=== PATIENT | male | born 1940 | race Asian ===

== ENCOUNTER → 2017-03-05 | Outpatient (CLI) | payer BC ==
[~2017-03-05] MED LIST: ASPI81TA28 PO; CALC-5 PO; CEPH500C2 PO; DILT120C67 PO; LEVO25TA5 PO; LEVOTHYROXINE PO; POLY1POW80 PO; SULF800T23 PO; VENL-273 PO; VERA1TAB53 PO
--- NOTE | 2017-03-05 14:53 | DIAGNOSTIC IMAGING REPORT ---
RIGHT TIBIA/FIBULA 2 VIEWS ROUTINE CLINICAL HISTORY: Bone injury. Tender nodule along the mid shaft of the right tibia. COMPARISON: None FINDINGS: There is no acute fracture of the right tibia or fibula. No osseous lesion is identified. Lateral view demonstrates possible soft tissue swelling overlying the proximal to mid shaft of the right tibia. IMPRESSION: 1. No osseous abnormality of the right tibia or fibula. 2. Possible nonspecific soft tissue swelling overlying the anterior aspect of the proximal to mid shaft of the right tibia shown on lateral projection. Electronically signed by: Jaden Acevedo M.D. 03/05/2017 2:52 PM Dictated Date/Time: 03/05/2017 2:50 PM
== END | disposition home or self-care (01) ==
LOC: C.RAD 14:21
PROVIDERS: ATTEND Nurse Practitioner Family
DX: T14.90 Injury, unspecified (principal); X58.XXXA Exposure to other specified factors, initial encounter

== ENCOUNTER 2017-05-05 21:13 | Emergency (ER) | payer BC ==
[~2017-05-05] VITALS: Ht 167.6 cm; Wt 68.2 kg
[~2017-05-05 21:13] MED LIST changes: -ASPI81TA28 PO; -CEPH500C2 PO; -LEVO25TA5 PO; -LEVOTHYROXINE PO; -SULF800T23 PO; -VERA1TAB53 PO
[2017-05-05 21:17] VITALS: TEMP 36.7; Ht 167.6 cm; Wt 68.2 kg
[2017-05-05] MEDS ORDERED: DIPHTHERIA/TETANUS/PERTUSSIS 0.5 ML SYR/VIAL IM. ONE (21:45)
[2017-05-05] MEDS ORDERED: XYLOCAINE 1%/SOD BICARB 20 ML VIAL INFIL ONE (21:45)
[2017-05-05 22:24] VITALS: BP 125/68; PULSE 72; O2SAT 98
--- NOTE | 2017-05-05 22:45 | EMERGENCY ROOM VISIT NOTE ---
ED Visit Note First contact with patient: 21:37 CHIEF COMPLAINT: Finger laceration HISTORY OF PRESENT ILLNESS: This 76-year-old male patient presents to the emergency department after cutting the left first finger on a kitchen knife approximately one hour ago. The bleeding has stopped. Denies weakness or numbness of the finger. The patient has full range of motion of the fingers. The patient rates the pain as dull and 5/10. The patient denies any other injuries. The patient's tetanus shot is not up to date. REVIEW OF SYSTEMS: A 6 system review of systems was completed with positives and pertinent negatives listed in the HPI. ALLERGIES: No known allergies MEDICATIONS: See EMR PMH: See EMR SOCIAL HISTORY: Lives with family PHYSICAL EXAM: Vital Signs: Reviewed Nurse's notes, vital signs stable. GENERAL : French male, in no acute distress, well developed, well nourished. SKIN: There is a 3.0 cm long laceration on the medial aspect of the left first finger. The edges gape apart with traction. There is no foreign material in the wound and it looks clean. There is no bleeding. No deep structures such as tendons, bones, or significant blood vessels are seen in the base of the wound. Extension and flexion of the finger is full and strong. Full range of motion of the wrist and other fingers. Capillary refill less than 2 seconds. Normal sensation to light and sharp touch. EMERGENCY DEPARTMENT COURSE: I examined the patient. Verbal consent was obtained to perform the procedure. Using sterile technique the wound was cleansed with Betadine. 6 ml of 1% buffered lidocaine was used to perform a digital block to anesthetize the patient. The area was sterilely draped. Once the patient was anesthetized, the wound was copiously irrigated under pressure with sterile saline. The wound was explored and there were no deep structures injured. The laceration was repaired using 5 simple interrupted 5-0 nylon sutures. The patient tolerated the procedure well. Hemostasis was achieved. The area was cleaned with sterile saline and dressed with bacitracin ointment and bandage. The patient was given a tetanus booster. The patient was discharged home in good condition. Problem List Medical Problems: (1) Benign hypertension Status: Chronic (2) Bladder cancer Status: Resolved (3) Kidney disease Status: Chronic (4) Stomach problems Status: Chronic (5) Urinary problem Status: Chronic Current/Historical Medications Scheduled Calcium-Magnesium W/ Vitamin D (Calcium 500), 1 TAB PO DAILY Diltiazem Hcl Extended Release (Diltiazem Hcl Er), 120 MG PO BID Polyethylene Glycol 3350 (Peg 3350), 17 GM PO DAILY Venlafaxine Hcl (Venlafaxine Hcl Er), 75 MG PO BID Allergies Coded Allergies: No Known Allergies (Unverified , NONE, 10/05/13) Vital Signs Date Time Temp Pulse Resp B/P (MAP) Pulse Ox O2 Delivery O2 Flow Rate FiO2 05/05/17 22:24 72 18 125/68 98 05/05/17 21:17 36.7 74 18 128/73 97 Room Air Medications Administered Medications (Trade) Dose Ordered Sig/Lashell Route Start Time Stop Time Status Last Admin Dose Admin Diphtheria/ Pertussis/Tetanus Vacc (Adacel Inj) 0.5 ml ONCE ONCE IM. 05/05/17 21:45 05/05/17 21:46 DC 05/05/17 21:54 0.5 ML Departure Information Impression Primary Impression: Finger laceration Dispostion Home / Self-Care Condition GOOD Forms HOME CARE DOCUMENTATION FORM, IMPORTANT VISIT INFORMATION Patient Instructions My [facility] Additional Instructions Keep wound clean and dry. Do not allow any crusting or dried blood to accumulate on sutures. If this occurs, use a mild soap/water on a Q-tip to clean the wound. Do not use Peroxide to clean the wound as this can delay healing Use an antibiotic ointment like Bacitracin for 3-4 days, then let wound dry. You may bathe and shower as normal, but DO NOT SOAK the wound. Suture removal in about 7-10 days with your Family Doctor or in the ER. Return sooner for any signs of infection, increasing redness, swelling, or drainage.
== END 2017-05-05 22:25 | disposition home or self-care (01) ==
LOC: C.EDB 21:15 → C.EDD 22:25
DX: S61.211A Laceration without foreign body of left index finger without damage to nail, initial encounter (principal); W26.0XXA Contact with knife, initial encounter; I10 Essential (primary) hypertension; N28.9 Disorder of kidney and ureter, unspecified; Z23 Encounter for immunization

== ENCOUNTER 2017-05-16 16:08 | Emergency (ER) | payer BC ==
[~2017-05-16] VITALS: Ht 167.6 cm; Wt 79.0 kg
[2017-05-16 16:14] VITALS: BP 152/75; PULSE 67; TEMP 37; O2SAT 93; Ht 167.6 cm; Wt 79.0 kg
[2017-05-16] MEDS ORDERED: LEVOTHYROXINE PO (16:44)
[2017-05-16] MEDS ORDERED: CEPH500C2 PO (17:10)
[2017-05-16] MEDS ORDERED: SULF800T23 PO (17:10)
--- NOTE | 2017-05-16 17:11 | EMERGENCY ROOM VISIT NOTE ---
ED Visit Note First contact with patient: 16:27 Staff note: I have reviewed the Patients chart and have discussed this case with my PA. I generally agree with the ED note and findings.
--- NOTE | 2017-05-18 07:19 | EMERGENCY ROOM VISIT NOTE ---
ED Visit Note First contact with patient: 16:27 CHIEF COMPLAINT: Suture removal. HISTORY OF PRESENT ILLNESS: Mr. Cao is a 76-year-old male who ambulates into the ED requesting suture removal for a left thumb laceration he sustained 12 days ago. He reports over the last 5-6 days he has noted redness and swelling of the thumb in the area of his laceration. This has been associated with a throbbing pain. He rates this discomfort 3/10. The pain is nonradiating. The pain worsens with palpation. He has not identified any alleviating factors related to the pain. He has not taken any medications for pain prior to arrival at the hospital. He denies any associated fevers, chills, sweats, other skin eruptions , other skin color changes, chest pain, shortness of breath, abdominal pain, decreased appetite, thumb weakness/numbness/tingling, puslike drainage from the wound. REVIEW OF SYSTEMS: As noted above in History of Present Illness; all body systems were reviewed with the patient and found to be negative unless noted above otherwise. PAST MEDICAL HISTORY: Hypertension, bladder cancer, depression, mild stroke, hypothyroidism. CURRENT MEDICATION: Medications Dose Route/Sig Max Daily Dose Days Date Category [Levothyroxine] 1 Tab PO DAILY 05/16/17 Reported Calcium 500 (Calcium-Magnesium W/ Vitamin D) 1 Tab Tab 1 Tab PO DAILY 10/05/13 Reported Diltiazem Hcl Er (Diltiazem Hcl Extended Release) 120 Mg Cap 120 Mg PO BID 10/05/13 Reported Venlafaxine Hcl Er (Venlafaxine Hcl) 75 Mg Tab 75 Mg PO BID 10/05/13 Reported ALLERGIES TO MEDICATION: Patient denies. SOCIAL HISTORY: Patient is not employed; he feels safe in his home environment; he denies tobacco use and admits to alcohol use. PHYSICAL EXAM: Vital Signs: Date Time Temp Pulse Resp B/P (MAP) Pulse Ox O2 Delivery O2 Flow Rate FiO2 05/16/17 16:14 37.0 67 18 152/75 93 Room Air General: 76 year-old male in no acute distress, nontoxic appearing, afebrile and hemodynamically stable. Neurological: Awake, alert and oriented 3. Answering questions appropriately and following commands. SKIN: Warm, dry and pink. Left Thumb: Sutured laceration over the volar surface of the distal phalanxes. The sutures are intact. There is moderate erythema and edema surrounding the wound. The areas tender to palpation. There is no purulent drainage from the wound. There is no lymphangitis. The area that is erythematous and edematous is warm to palpation but does not appear cellulitic. LEFT HAND: Soft tissue injury as noted above. No gross bony deformity. Full range of motion of flexion and extension of the thumbs interphalangeal joint and first MCP joint. Throughout the thumb the skin was warm and pink and capillary refill is brisk. He was able to distinguish light sensations through all dermatomes. ED COURSE: Patient is assessed as noted above. Patient's medication list was reviewed. Patient's case was reviewed with Dr. Tyler; he independently assessed the patient we agreed on diagnostic approach, treatment, disposition and plan. Patient was educated about today's findings and instructed on his treatment plan ; he verbalizes understanding and agreement with this plan. CLINICAL IMPRESSION: Wound infection. DISPOSITION: Patient discharged home in stable condition. PLAN: Patient was prescribed Keflex and Bactrim DS for 7 days and instructed on their use. Patient was encouraged to continue to clean his wound. Patient was educated on signs of infection. Patient was encouraged return the ED for recheck in 36-48 hours and possible suture removal. Patient was encouraged return to the ED sooner for worsening signs of infection or any new/concerning symptoms.
== END 2017-05-16 17:20 | disposition home or self-care (01) ==
LOC: C.EDB 16:09 → C.EDD 17:20
DX: T81.4XXA Infection following a procedure, initial encounter (principal); X58.XXXA Exposure to other specified factors, initial encounter; I10 Essential (primary) hypertension; F32.9 Major depressive disorder, single episode, unspecified; E03.9 Hypothyroidism, unspecified; Z85.51 Personal history of malignant neoplasm of bladder

== ENCOUNTER 2017-05-22 16:46 | Emergency (ER) | payer BC ==
[~2017-05-22] VITALS: Ht 167.6 cm; Wt 77.2 kg
[~2017-05-22 16:46] MED LIST changes: +CEPH500C2 PO; +LEVOTHYROXINE PO; -POLY1POW80 PO; +SULF800T23 PO
[2017-05-22 16:49] VITALS: BP 161/82; PULSE 58; TEMP 36.7; O2SAT 94; Ht 167.6 cm; Wt 77.2 kg
--- NOTE | 2017-05-22 17:06 | EMERGENCY ROOM VISIT NOTE ---
ED Visit Note First contact with patient: 16:54 CHIEF COMPLAINT: Suture removal This patient returns to the ED today for removal of sutures that were placed 17 days ago. The patient was seen her 4 days ago for suture removal, however, there was redness, swelling, and drainage, so he was started on Keflex and Bactrim, and advised to follow-up in 2 days for removal of sutures. The patient feels like the laceration is healing well. REVIEW OF SYSTEMS: A complete 6 point review of systems was reviewed with the patient with pertinent positives and negatives as per history of present illness. All else were negative. PMH: Anxiety/depression, hypertension MEDICATIONS: Keflex, Bactrim, venlafaxine, diltiazem, calcium-magnesium with vitamin D ALLERGIES: None SOCIAL HISTORY: The patient lives locally with his family. He denies drug, alcohol, tobacco use. PHYSICAL EXAM: Vital Signs: Reviewed Nurse's notes. There is a sutured wound on the medial aspect of the left thumb with mild erythema and swelling. 5 sutures are intact. No pus or drainage from the wound. The wound edges appear to be well-approximated. No evidence of dehiscence. Pt. states redness has improved. EMERGENCY DEPARTMENT COURSE: The sutures were removed without any difficulty and there was no separation of the wound edges. DIFFERENTIAL DIAGNOSIS: Infection, dehiscence, and others. DIAGNOSIS: Healing laceration and suture removal DISCHARGE INSTRUCTIONS AND TREATMENT: Please keep the area covered when you may get it dirty. Leave the wound open to air when possible to assist with healing. If the wound becomes dry or cracked, you should apply antibiotic ointment to it , otherwise, you do not need to apply any ointment. Return to the ED for worsening redness, swelling, pain, fever, drainage, nausea , or vomiting. Follow-up with your PCP this week for further wound care instructions. Continue Keflex and Bactrim as prescribed. Problem List Medical Problems: (1) Benign hypertension Status: Chronic (2) Bladder cancer Status: Resolved (3) Kidney disease Status: Chronic (4) Stomach problems Status: Chronic (5) Urinary problem Status: Chronic Current/Historical Medications Scheduled Calcium-Magnesium W/ Vitamin D (Calcium 500), 1 TAB PO DAILY Cephalexin Monohydrate (Keflex), 500 MG PO QID Diltiazem Hcl Extended Release (Diltiazem Hcl Er), 120 MG PO BID Sulfa/Trimethoprim (Bactrim Ds 800MG/160MG), 1 TAB PO BID Venlafaxine Hcl (Venlafaxine Hcl Er), 75 MG PO BID [Levothyroxine], 1 TAB PO DAILY Allergies Coded Allergies: No Known Allergies (Unverified , NONE, 05/16/17) Vital Signs Date Time Temp Pulse Resp B/P (MAP) Pulse Ox O2 Delivery O2 Flow Rate FiO2 05/22/17 16:49 36.7 58 18 161/82 94 Room Air Departure Information Impression Primary Impression: Encounter for removal of sutures Dispostion Home / Self-Care Condition GOOD Referrals Juanjo Wong M.D. (PCP) Patient Instructions My [facility] Additional Instructions Please keep the area covered when you may get it dirty. Leave the wound open to air when possible to assist with healing. If the wound becomes dry or cracked, you should apply antibiotic ointment to it , otherwise, you do not need to apply any ointment. Return to the ED for worsening redness, swelling, pain, fever, drainage, nausea , or vomiting. Follow-up with your PCP this week for further wound care instructions. Continue Keflex and Bactrim as prescribed.
[2017-05-22] MEDS ORDERED: VERA1TAB53 PO (17:15)
[2017-05-22] MEDS ORDERED: LEVO25TA5 PO (17:17)
[2017-05-22] MEDS ORDERED: ASPI81TA28 PO (17:24)
== END 2017-05-22 17:08 | disposition home or self-care (01) ==
LOC: C.EDB 16:47 → C.EDD 17:08
DX: X58.XXXD Exposure to other specified factors, subsequent encounter (principal); S61.211D Laceration without foreign body of left index finger without damage to nail, subsequent encounter; W26.0XXD Contact with knife, subsequent encounter; I10 Essential (primary) hypertension; F41.8 Other specified anxiety disorders; N18.9 Chronic kidney disease, unspecified

== ENCOUNTER → 2018-02-24 | Outpatient (CLI) | payer BC ==
[~2018-02-24] MED LIST changes: +ASPI81TA28 PO; -CEPH500C2 PO; +LEVO25TA5 PO; -LEVOTHYROXINE PO; -SULF800T23 PO; +VERA1TAB53 PO
--- NOTE | 2018-02-24 15:19 | DIAGNOSTIC IMAGING REPORT ---
RIGHT ANKLE 3 VIEWS CLINICAL HISTORY: Right ankle pain. FINDINGS: 3 views of the right ankle are correlated with radiographs of the right tibia and fibula dated 03/05/2017. The skeletal structures are osteopenic. No fracture is seen. The ankle mortise is preserved. There is a small joint effusion. Soft tissue swelling is present around the ankle. IMPRESSION: Soft tissue swelling and joint effusion. No right ankle fracture is identified. Electronically signed by: Alverto Jara M.D. 02/24/2018 3:17 PM Dictated Date/Time: 02/24/2018 3:16 PM
== END | disposition home or self-care (01) ==
LOC: C.RAD 14:42
PROVIDERS: ATTEND Nurse Practitioner Family
DX: M25.571 Pain in right ankle and joints of right foot (principal); Z87.828 Personal history of other (healed) physical injury and trauma

== ENCOUNTER 2021-04-15 10:26 | Inpatient (IN) ==
[2021-04-15] MEDS ORDERED: OPTIRAY 350 500ml IV ONE (10:53)
[2021-04-15] MEDS ORDERED: SODIUM CHLORIDE 0.9% 1000ML 1,000 ML IV SCH (11:00)
--- NOTE | 2021-04-15 11:04 | CT Scan Report ---
CT OF THE HEAD WITHOUT CONTRAST CLINICAL HISTORY: Stroke Like Symptoms COMPARISON STUDY: Head CT February 08, 2014. CT DOSE: 729.78 mGycm TECHNIQUE: Helical axial images of the head were obtained without IV contrast. Automated exposure con trol was utilized for the study. A dose lowering technique was utilized adhering to the principles o f ALARA. FINDINGS: No acute intracranial hemorrhage, midline shift or mass effect is present. The ventricular system is unremarkable. White matter hypodensity suggests small vessel disease. The basal cisterns ar e patent. No extra-axial collections are present. There are no findings to suggest acute dural sinus thrombosis or acute territorial infarct. No significant calvarial abnormalities are present. Visualiz ed portions of the sinuses and mastoid air cells are clear. IMPRESSION: No acute intracranial findings. ACT 112: Negative or not required by law. Electronically signed by: Jaden Acevedo M.D. 04/15/2021 11:03 AM
--- NOTE | 2021-04-15 11:17 | CT Scan Report ---
HEAD CTA HISTORY: Stroke Like Symptoms TECHNIQUE: Multiaxial CT images of the head were performed both before and after the intravenous admi nistration of contrast to evaluate the major cerebral vessels. Maximum intensity projection images we re also obtained. A dose lowering technique was utilized adhering to the principles of ALARA. COMPARISON: None. FINDINGS: There is no mass, hematoma, midline shift, or acute infarct. Visualized intracranial global marketing intern al carotid arteries, distal left vertebral artery, and basilar artery are widely patent. There is no significant stenosis, occlusion, or aneurysm seen within the bilateral ACAs, MCAs, or insurance healthcare representative. There is a severely hypoplastic distal right vertebral artery which does not clearly extend to the basilar art edmund and may terminate into the right posterior inferior cerebellar artery. There is also a markedly h ypoplastic left P1 segment. The left CONTACT LENS FLASHING PUNCHER is fed primarily through the left posterior communicating ar jennifer. This is considered to be a normal variant. The major dural venous sinuses are patent. IMPRESSION: No significant stenosis, occlusion, or aneurysm within the [place]. 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 ACT 112: Negative or not required by law. Electronically signed by: Mauro Colbert M.D. 04/15/2021 11:16 AM
[2021-04-15 11:26] LABS: Basophils # (auto) 0.01 K/uL (0-0.2); Basophils % (auto) 0.2 %; Eosinophils # (auto) 0.06 K/uL (0-0.5); Hematocrit (blood only) 42.1 % (42-52); Hemoglobin 14.6 g/dL (14.0-18.0); Immature Granulocytes # (auto) 0.02 K/uL (0.00-0.02); Immature Granulocytes % (auto) 0.3 %; Lymphocytes # (auto) 1.53 K/uL (1.2-3.4); Lymphocytes % (auto) 25.5 %; Mean Corpuscular Hemoglobin 31.9 pg (25-34); Mean Corpuscular Hgb Conc 34.7 g/dL (32-36); Mean Corpuscular Volume 91.9 fL (80-100); Mean Platelet Volume 9.2 fL (7.4-10.4); Neutrophils # (auto) 4.08 K/uL (1.4-6.5); Platelet Count 143 K/uL (130-400); RDW Coefficient of Variation 12.3 % (11.5-14.5); RDW Standard Deviation 41.4 fL (36.4-46.3); Red Blood Count 4.58 M/uL (4.7-6.1)
--- NOTE | 2021-04-15 11:27 | XRay Report ---
XR chest 1V portable HISTORY: 80 years-old Male Stroke Like Symptoms acute strokelike symptoms COMPARISON: Chest and rib radiographs 01/15/2021 TECHNIQUE: Portable AP view the chest FINDINGS: Cardiac silhouette is upper limits of normal in size. No pneumothorax, pleural effusion, airspace con solidation or overt pulmonary edema. Bones of the chest appear grossly intact. IMPRESSION: No acute process. ACT 112: Negative or not required by law. The above report was generated using voice recognition software. It may contain grammatical, syntax o r spelling errors. Electronically signed by: Gabe Graham M.D. 04/15/2021 11:26 AM
--- NOTE | 2021-04-15 11:29 | Emergency Department Note ---
Impression & Plan Dizziness, Numbness and tingling of right arm, Stroke-like symptoms, History of CVA (cerebrovascular accident) ED Provider Note NAME: TC JORGE AGE: 80 SEX: M : 1940 ARRIVES VIA: Walk-In INFORMANT: [Patient] ED PROVIDER(S): [Alverto Martinez MD] Patient first seen by me at 1045 CHIEF COMPLAINT: Stroke symptoms HISTORY OF PRESENT ILLNESS: The patient is a 80-year-old male who presents to the ER with some dizziness, weakness, right hand tingling. The patient has had symptoms today since getting out of bed although, things seem somewhat better than when they first were noted. Patient has had symptoms now for about 4 hours and 15 minutes. The patient also had an episode last evening when he stood up from the floor. That episode lasted less than 5 minutes. The patient states that this morning's episode was more severe and included some right hand tingling. He presents to the ER for evaluation. He has a history of previous TIA/stroke. There has been no recent cough or congestion. He has no headache. No chest pain or shortness of breath. No abdominal pain. REVIEW OF SYSTEMS: See HPI for pertinent positives and negatives. A total of ten systems were reviewed and were otherwise negative. PMHx/PSHx: See Below SOCIAL HISTORY: See Below. PHYSICAL EXAM: GENERAL: Patient is in no acute distress. HEENT: No acute trauma, normocephalic atraumatic, mucous membranes moist, no nasal congestion, no scleral icterus. NECK: No stridor, no adenopathy, no meningismus, trachea is midline. LUNGS: Clear to auscultation bilaterally, no wheeze, no rhonchi, breath sounds equal. HEART: Without murmurs gallops or rubs, regular rate and rhythm. ABDOMEN: Soft, nontender, bowel sounds positive, no hernias, no peritonitis. EXTREMITIES: No cyanosis or edema, full range of motion of all the joints without pain or difficulty, no signs for acute trauma. NEUROLOGIC: Oriented x 3, no acute motor or sensory deficits, no focal weakness. No speech slur or facial droop. No cerebellar dysfunction or extremity drift. SKIN: No rash, no jaundice, no diaphoresis. DIFFERENTIAL DIAGNOSIS: Infection, dehydration, metabolic abnormality, hypo/hyperglycemia, electrolyte disturbance, anemia, hypoxia, cardiac sources, intracerebral event, toxicologic issues, stroke, TIA, as well as other pathologies. EMERGENCY DEPARTMENT COURSE/PROCEDURES: ECG: Indication was possible stroke. The ECG shows a sinus rhythm with a first-degree AV block. There is some baseline artifact. The rate is 72. There is no ST elevation, no PVCs. The QTc is 435. Continuous Cardiac Monitoring: An order was placed for continuous cardiac monitoring. The monitor shows a rate of 69 with normal sinus rhythm. Critical Care Note: I have personally spent 43 minutes of critical care time in the direct management of this patient. This includes bedside care, inte rpretation of diagnostic studies, and testing, discussion with consultants, patient, and family members, and other required patient management activities. This 43 minutes is in excess of all separately billable procedures. MEDICAL DECISION MAKING: There is no leukocytosis or concerning anemia. There is a normal platelet count. No coagulopathy. No significant electrolyte abnormality or kidney failure. No worrisome liver enzyme elevation. ECG shows a sinus rhythm, there is no acute ischemia. Cardiac enzyme testing x1 is not consistent with acute cardiac injury. Urinalysis result is pending. Covid testing returned negative. Chest film did not show mediastinal widening, pneumonia or pneumothorax. Brain CT did not show acute bleed or mass-effect. Brain CT angio was basically unremarkable. CT angio of the neck did show some stenosis. On my exam, there were no focal neurologic findings. The patient presents with strokelike symptoms. A stroke alert was initiated. The patient is not a candidate for TPA. He is out of the window for this medication. In addition, on my exam, he did not have any significant neurologic deficits. The patient is in need of a hospital stay for further stroke work-up. He needs a neurology consult and likely an MRI. He certainly may have had a small stroke not seen on CT. I did speak with the patient and case management. The on-call hospitalist was consulted. 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 Sales Required: No Beliefs That Will Affect Care: None Current Living Situation: Spouse Current Living Situation Comment: Lives with at [facility] Other Information That Helps Us Care for You: No Feels Safe at Home: Yes Safety Concerns: Feels Safe At This Time Assistive Devices: None Allergies Allergies Allergy/AdvReac Type Severity Reaction Status Date / Time No Known Allergies Allergy Mild NONE Unverified 04/15/21 12:25 Home Meds Home Medications Medication Instructions Recorded Confirmed levothyroxine 25 mcg PO DAILY 08/19/19 04/15/21 verapamil 180 mg PO DAILY 08/19/19 04/15/21 atorvastatin 20 mg PO HS 04/15/21 04/15/21 metformin 1,000 mg PO BID 04/15/21 04/15/21 Results & Data (ED) Vital Signs Vital Signs - 24 hr 04/15/21 10:33 04/15/21 11:15 04/15/21 11:20 Temperature 36.8 C Temperature Source Temporal Artery Scan Pulse Rate 69 67 67 Pulse Rate from SpO2 Sensor 67 66 Respiratory Rate 16 Respiratory Effort / Characteristics Non-Labored Spontaneous Respiratory Depth Normal Respiratory Pattern Regular Blood Pressure 143/69 H 143/69 H Blood Pressure Mean 93 93 Blood Pressure Position Sitting Pulse Oximetry 96 95 93 Oxygen Delivery Method Room Air Sepsis Recent Fever Within 48 Hours No Sepsis New/Unexplained Change in Mental Status N/A Sepsis Action Taken by Nursing No Action Required 04/15/21 11:26 04/15/21 11:30 04/15/21 12:44 Temperature Temperature Source Pulse Rate 66 57 L Pulse Rate from SpO2 Sensor 64 Respiratory Rate 20 Respiratory Effort / Characteristics Respiratory Depth Respiratory Pattern Blood Pressure 135/67 Blood Pressure Mean 89 Blood Pressure Position Pulse Oximetry 95 95 Oxygen Delivery Method Room Air Sepsis Recent Fever Within 48 Hours Sepsis New/Unexplained Change in Mental Status Sepsis Action Taken by Nursing 04/15/21 12:45 Temperature Temperature Source Pulse Rate 58 L Pulse Rate from SpO2 Sensor 58 L Respiratory Rate 20 Respiratory Effort / Characteristics Respiratory Depth Respiratory Pattern Blood Pressure 158/78 H Blood Pressure Mean 104 Blood Pressure Position Pulse Oximetry 94 Oxygen Delivery Method Sepsis Recent Fever Within 48 Hours Sepsis New/Unexplained Change in Mental Status Sepsis Action Taken by Intermediate Medications Current Medication List: was personally reviewed by me Laboratory Data Attestation: I reviewed the patient's lab results. Result diagrams: 04/15/21 11:15 04/15/21 11:15 Lab Results 04/15/21 04/15/21 04/15/21 Range/Units 11:13 11:15 11:15 WBC 6.00 (4.8-10.8) K/uL RBC 4.58 L (4.7-6.1) M/uL Hgb 14.6 (14.0-18.0) g/dL Hct 42.1 (42-52) % MCV 91.9 (80-100) fL MCH 31.9 (25-34) pg MCHC 34.7 (32-36) g/dL RDW Std Deviation 41.4 (36.4-46.3) fL RDW Coeff of Parvin 12.3 (11.5-14.5) % Plt Count 143 (130-400) K/uL MPV 9.2 (7.4-10.4) fL Immature Gran % (Auto) 0.3 % Neut % (Auto) 68.0 % Lymph % (Auto) 25.5 % [place] % (Auto) 5.0 % Eos % (Auto) 1.0 % Baso % (Auto) 0.2 % Neut # (Auto) 4.08 (1.4-6.5) K/uL Lymph # (Auto) 1.53 (1.2-3.4) K/uL [place] # (Auto) 0.30 (0.11-0.59) K/uL Eos # (Auto) 0.06 (0-0.5) K/uL Baso # (Auto) 0.01 (0-0.2) K/uL Immature Gran # (Auto) 0.02 (0.00-0.02) K/uL PT (9.0-12.0) Seconds INR (0.9-1.1) APTT (21.0-31.0) Seconds PTT Ratio Sodium (136-145) mmol/L Potassium (3.5-5.1) mmol/L Chloride (98-107) mmol/L Carbon Dioxide (21-32) mmol/L Anion Gap (3-11) BUN (7-18) mg/dl Creatinine (0.6-1.4) mg/dl Est Cr Clr Drug Dosing ml/min Est GFR ( Amer) ml/min Est GFR (Non-Af Amer) ml/min BUN/Creatinine Ratio (10-20) Glucose (70-99) mg/dl POC Glucose 172 H (70-99) mg/dl Calcium (8.5-10.1) mg/dl Magnesium (1.8-2.4) mg/dl Total Bilirubin (0.2-1) mg/dl AST (15-37) U/L ALT (12-78) U/L Alkaline Phosphatase (45-117) U/L Troponin I (0-0.045) ng/ml Total Protein (6.4-8.2) gm/dl Albumin (3.4-5.0) gm/dl Globulin (2.5-4.0) gm/dl Albumin/Globulin Ratio (0.9-2) COVID-19 Eval Order SARS-CoV-2 (PCR) (Negative) Blood Type A Positive Antibody Screen NEGATIVE 04/15/21 04/15/21 04/15/21 Range/Units 11:15 11:15 11:26 WBC (4.8-10.8) K/uL RBC (4.7-6.1) M/uL Hgb (14.0-18.0) g/dL Hct (42-52) % MCV (80-100) fL MCH (25-34) pg MCHC (32-36) g/dL RDW Std Deviation (36.4-46.3) fL RDW Coeff of Parvin (11.5-14.5) % Plt Count (130-400) K/uL MPV (7.4-10.4) fL Immature Gran % (Auto) % Neut % (Auto) % Lymph % (Auto) % [place] % (Auto) % Eos % (Auto) % Baso % (Auto) % Neut # (Auto) (1.4-6.5) K/uL Lymph # (Auto) (1.2-3.4) K/uL [place] # (Auto) (0.11-0.59) K/uL Eos # (Auto) (0-0.5) K/uL Baso # (Auto) (0-0.2) K/uL Immature Gran # (Auto) (0.00-0.02) K/uL PT 10.9 (9.0-12.0) Seconds INR 1.1 (0.9-1.1) APTT 24.5 (21.0-31.0) Seconds PTT Ratio 0.9 Sodium 138 (136-145) mmol/L Potassium 4.2 (3.5-5.1) mmol/L Chloride 108 H (98-107) mmol/L Carbon Dioxide 24 (21-32) mmol/L Anion Gap 6.0 (3-11) BUN 16 (7-18) mg/dl Creatinine 1.07 (0.6-1.4) mg/dl Est Cr Clr Drug Dosing 50.5 ml/min Est GFR ( Amer) 76.1 ml/min Est GFR (Non-Af Amer) 65.7 ml/min BUN/Creatinine Ratio 15.2 (10-20) Glucose 167 H (70-99) mg/dl POC Glucose (70-99) mg/dl Calcium 8.8 (8.5-10.1) mg/dl Magnesium 2.2 (1.8-2.4) mg/dl Total Bilirubin 0.9 (0.2-1) mg/dl AST 29 (15-37) U/L ALT 46 (12-78) U/L Alkaline Phosphatase 58 (45-117) U/L Troponin I < 0.015 (0-0.045) ng/ml Total Protein 6.9 (6.4-8.2) gm/dl Albumin 3.5 (3.4-5.0) gm/dl Globulin 3.4 (2.5-4.0) gm/dl Albumin/Globulin Ratio 1.0 (0.9-2) COVID-19 Eval Order Covid19 at [facility] SARS-CoV-2 (PCR) (Negative) Blood Type Antibody Screen 04/15/21 Range/Units 11:26 WBC (4.8-10.8) K/uL RBC (4.7-6.1) M/uL Hgb (14.0-18.0) g/dL Hct (42-52) % MCV (80-100) fL MCH (25-34) pg MCHC (32-36) g/dL RDW Std Deviation (36.4-46.3) fL RDW Coeff of Parvin (11.5-14.5) % Plt Count (130-400) K/uL MPV (7.4-10.4) fL Immature Gran % (Auto) % Neut % (Auto) % Lymph % (Auto) % [place] % (Auto) % Eos % (Auto) % Baso % (Auto) % Neut # (Auto) (1.4-6.5) K/uL Lymph # (Auto) (1.2-3.4) K/uL [place] # (Auto) (0.11-0.59) K/uL Eos # (Auto) (0-0.5) K/uL Baso # (Auto) (0-0.2) K/uL Immature Gran # (Auto) (0.00-0.02) K/uL PT (9.0-12.0) Seconds INR (0.9-1.1) APTT (21.0-31.0) Seconds PTT Ratio Sodium (136-145) mmol/L Potassium (3.5-5.1) mmol/L Chloride (98-107) mmol/L Carbon Dioxide (21-32) mmol/L Anion Gap (3-11) BUN (7-18) mg/dl Creatinine (0.6-1.4) mg/dl Est Cr Clr Drug Dosing ml/min Est GFR ( Amer) ml/min Est GFR (Non-Af Amer) ml/min BUN/Creatinine Ratio (10-20) Glucose (70-99) mg/dl POC Glucose (70-99) mg/dl Calcium (8.5-10.1) mg/dl Magnesium (1.8-2.4) mg/dl Total Bilirubin (0.2-1) mg/dl AST (15-37) U/L ALT (12-78) U/L Alkaline Phosphatase (45-117) U/L Troponin I (0-0.045) ng/ml Total Protein (6.4-8.2) gm/dl Albumin (3.4-5.0) gm/dl Globulin (2.5-4.0) gm/dl Albumin/Globulin Ratio (0.9-2) COVID-19 Eval Order SARS-CoV-2 (PCR) NEGATIVE (Negative) Blood Type Antibody Screen Administered Medications Heparin Sodium (Porcine) (Heparin Sod 5,000 Unit/0.5 Ml Vial) 5,000 units SQ Q8 SHAWANDA Stop: 05/15/21 14:29 Last Admin: 04/15/21 14:47 Dose: 5,000 units Documented by: [id number] Sodium Chloride (Nss 1000ml) 1,000 mls @ 50 mls/hr IV .Q20H SHAWANDA Stop: 05/15/21 10:59 Last Admin: 04/15/21 11:14 Dose: 50 mls/hr Documented by: [id number] Insulin Aspart (Insulin Aspart 100 Units/Ml 3 Ml Pen) 0 units SC ACHS SHAWANDA Stop: 05/15/21 16:29 Last Admin: 04/15/21 17:18 Dose: Not Given Documented by: [id number] Cosigned by: [id number] Discontinued Medications Aspirin (Aspirin 81 Mg Chew) 324 mg PO NOW ONE Stop: 04/15/21 14:04 Last Admin: 04/15/21 14:46 Dose: 324 mg Documented by: [id number] Ioversol (Optiray 350 500ml) 120 ml IV ONCE ONE Stop: 04/15/21 10:54 Last Admin: 04/15/21 10:53 Dose: 120 ml Documented by: [id number] Imaging Data Radiologist's Impression: Chest X-Ray 04/15/21 10:46 XR chest 1V portable HISTORY: 80 years-old Male Stroke Like Symptoms acute strokelike symptoms COMPARISON: Chest and rib radiographs 01/15/2021 TECHNIQUE: Portable AP view the chest FINDINGS: Cardiac silhouette is upper limits of normal in size. No pneumothorax, pleural effusion, airspace consolidation or overt pulmonary edema. Bones of the chest appear grossly intact. IMPRESSION: No acute process. ACT 112: Negative or not required by law. The above report was generated using voice recognition software. It may contain grammatical, syntax or spelling errors. Electronically signed by: Gabe Graham M.D. 04/15/2021 11:[address] 04/15/21 10:46 CT OF THE HEAD WITHOUT CONTRAST CLINICAL HISTORY: Stroke Like Symptoms COMPARISON STUDY: Head CT February 08, 2014. CT DOSE: 729.78 mGycm TECHNIQUE: Helical axial images of the head were obtained without IV contrast. Automated exposure control was utilized for the study. A dose lowering tech nique was utilized adhering to the principles of ALARA. FINDINGS: No acute intracranial hemorrhage, midline shift or mass effect is present. The ventricular system is unremarkable. White matter hypodensity suggests small vessel disease. The basal cisterns are patent. No extra-axial collections are present. There are no findings to suggest acute dural sinus t hrombosis or acute territorial infarct. No significant calvarial abnormalities are present. Visualized portions of the sinuses and mastoid air cells are clear. IMPRESSION: No acute intracranial findings. ACT 112: Negative or not required by law. Electronically signed by: Jaden Acevedo M.D. 04/15/2021 11:03 AM Head CTA 04/15/21 10:46 HEAD CTA HISTORY: Stroke Like Symptoms TECHNIQUE: Multiaxial CT images of the head were performed both before and after the intravenous administration of contrast to evaluate the major cerebral vessels. Maximum intensity projection images were also obtained. A dose lowering technique was utilized adhering to the principles of ALARA. COMPARISON: None. FINDINGS: There is no mass, hematoma, midline shift, or acute infarct. Visualized intracranial internal carotid arteries, distal left vertebral artery, and basilar artery are widely patent. There is no significant stenosis, occlusion, or aneurysm seen within the bilateral ACAs, MCAs, or engine repairer service. There is a severely hypoplastic distal right vertebral artery which does not clearly extend to the basilar artery and may terminate into the right posterior inferior cerebellar artery. There is also a markedly hypoplastic left P1 segment. The left INSURANCE COUNSELOR is fed primarily through the left posterior communicating artery. This is considered to be a normal variant. The major dural venous sinuses are patent. IMPRESSION: No significant stenosis, occlusion, or aneurysm within the [place]. Severely hypoplastic distal right vertebral artery, likely developmental. ACT 112: Negative or not required by law. Electronically signed by: Mauro Colbert M.D. 04/15/2021 11:16 AM Neck CTA 04/15/21 10:46 CT angio neck with con CLINICAL HISTORY: 80 years-old Male with Stroke Like Symptoms. Acute strokelike symptoms COMPARISON STUDY: CT head and CTA neck studies of same day TECHNIQUE: Following the IV administration of 120 mL of Optiray, CT angiogram of the neck was performed from the aortic arch to the skull base. Images are reviewed in the axial, sagittal, and coronal planes. 3-D MIPS images are created and assessed. IV contrast was administered without complication. All measurements were calculated based on NASCET criteria. A dose lowering technique was utilized adhering to the principles of ALARA. FINDINGS: Mild atherosclerotic plaque the thoracic aorta arch. Patency of the innominate and imaged subclavian arteries. The common carotid arteries are widely patent. Moderate mixed plaque of the carotid bulbs and proximal cervical segments of the internal carotid arteries. This results in less than 50% stenosis on the left. There is 70% stenosis of the proximal right ICA on image 244. Dominant left vertebral artery. Atheromatous plaque at the origin of the left vertebral artery results in at least 50% luminal narrowing. The left vertebral artery is domina nt. Developmentally diminutive right vertebral artery. There is at least mild luminal narrowing at the origin of the right vertebral artery. No pneumothorax. Unremarkable thyroid. Mild medial deviation of the left vocal fold. No discrete mass identified. Nonspecific mildly prominent level 1 lymph nodes measure up to 7 mm. Mild polypoid mucosal thickening of the left maxillary sinus. Degenerative changes of the spine. IMPRESSION: Atherosclerotic plaque of the carotid bulbs and proximal cervical segments of the internal carotid arteries results in 70% stenosis on the right and less than 50% stenosis on the left. ACT 112: Negative or not required by law. The above report was generated using voice recognition software. It may contain grammatical, syntax or spelling errors. Electronically signed by: Gabe Graham M.D. 04/15/2021 11:51 AM Discharge Plan Visit Data Chief Complaint: Neuro Symptoms/Deficit Stated Complaint: DIZZY,R HAND TINGLY,EYESIGHT TROUBLES,REF BY DOC ED Provider: Alverto Martinez Discharge Problem: Dizziness, Numbness and tingling of right arm, Stroke-like symptoms, History of CVA (cerebrovascular accident) Patient Disposition: Admitted As Inpatient Condition: Fair Discharge Instructions Interventions: ED Discharge Assessment Last Done: 04/15/21 13:46
[2021-04-15 11:43] LABS: INR 1.1 (0.9-1.1); Partial Thromboplastin Ratio 0.9; Partial Thromboplastin Time 24.5 Seconds (21.0-31.0); Prothrombin Time 10.9 Seconds (9.0-12.0)
[2021-04-15 11:44] LABS: Alanine Aminotransferase 46 U/L (12-78); Albumin Level 3.5 gm/dl (3.4-5.0); Aspartate Aminotransferase 29 U/L (15-37); BUN Creatinine Ratio 15.2 (10-20); Blood Urea Nitrogen 16 mg/dl (7-18); Calcium 8.8 mg/dl (8.5-10.1); Carbon Dioxide 24 mmol/L (21-32); Chloride 108 mmol/L (98-107); Creatinine Clr Calc Pharmacy 50.5 ml/min; Est GFR (African American) 76.1 ml/min; Est GFR (Non-African American) 65.7 ml/min; Glucose 167 mg/dl (70-99); Magnesium 2.2 mg/dl (1.8-2.4); Potassium 4.2 mmol/L (3.5-5.1); Sodium 138 mmol/L (136-145)
[2021-04-15 11:49] LABS: Alkaline Phosphatase 58 U/L (45-117); Bilirubin,Total 0.9 mg/dl (0.2-1); Globulin 3.4 gm/dl (2.5-4.0); Total Protein 6.9 gm/dl (6.4-8.2); Troponin I < 0.015 ng/ml (0-0.045)
--- NOTE | 2021-04-15 11:52 | CT Scan Report ---
CT angio neck with con CLINICAL HISTORY: 80 years-old Male with Stroke Like Symptoms. Acute strokelike symptoms COMPARISON STUDY: CT head and CTA neck studies of same day TECHNIQUE: Following the IV administration of 120 mL of Optiray, CT angiogram of the neck was perform ed from the aortic arch to the skull base. Images are reviewed in the axial, sagittal, and coronal pl anes. 3-D MIPS images are created and assessed. IV contrast was administered without complication. Al l measurements were calculated based on NASCET criteria. A dose lowering technique was utilized adhe ring to the principles of ALARA. FINDINGS: Mild atherosclerotic plaque the thoracic aorta arch. Patency of the innominate and imaged subclavian arteries. The common carotid arteries are widely patent. Moderate mixed plaque of the carotid bulbs a nd proximal cervical segments of the internal carotid arteries. This results in less than 50% stenosi s on the left. There is 70% stenosis of the proximal right ICA on image 244. Dominant left vertebral artery. Atheromatous plaque at the origin of the left vertebral artery results in at least 50% lumina l narrowing. The left vertebral artery is dominant. Developmentally diminutive right vertebral artery . There is at least mild luminal narrowing at the origin of the right vertebral artery. No pneumothorax. Unremarkable thyroid. Mild medial deviation of the left vocal fold. No discrete mass identified. Nonspecific mildly prominent level 1 lymph nodes measure up to 7 mm. Mild polypoid mucos al thickening of the left maxillary sinus. Degenerative changes of the spine. IMPRESSION: Atherosclerotic plaque of the carotid bulbs and proximal cervical segments of the internal carotid ar teries results in 70% stenosis on the right and less than 50% stenosis on the left. ACT 112: Negative or not required by law. The above report was generated using voice recognition software. It may contain grammatical, syntax o r spelling errors. Electronically signed by: Gabe Graham M.D. 04/15/2021 11:51 AM
--- NOTE | 2021-04-15 12:45 | History & Physical Report ---
Date of Service April 15, 2021 Assessment & Plan (1) Vertigo: With paresthesias and findings of carotid stenosis, consider CVA/TIA Admit to monitor bed Neurochecks every 4 hours Check MRI Check 2D echo PT/OT evaluation Start low-dose aspirin, consider Plavix Continue atorvastatin I will consult neurology for further recommendations (2) Diabetes: Will hold metformin for now secondary to dye studies Sliding scale with meals Diabetic diet (3) Hypercholesteremia: Atorvastatin as per outpatient dosing (4) Hypothyroid: Levothyroxine as per outpatient dosing (5) Carotid stenosis: Check fasting lipids Continue atorvastatin Low-dose aspirin Will defer to neurology, may need to consider referral to vascular surgery History of Present Illness Chief Complaint: Dizziness Primary Care Provider: Juanjo Wong MD This is a 80-year-old male with past medical history of type 2 diabetes mellitus, previous CVA in 2012 the presents today complaining of intermittent vertigo. Patient is accompanied by his and both are pleasant and good historians. Patient tells me he was doing well until last night. He was doing some stretches on the floor but when he stood up he had an episode of vertigo. This lasted approximately 5 minutes. At the time, was not accompanied with any other symptoms such as headache, numbness, tingling, or weakness. He thought he may have stood up too fast and the symptoms resolved. However, patient woke up at 630 this morning the vertigo had return although it was much worse. He also had some paresthesias in the right upper extremity. This radiated from the inferior surface of the arm down to the fingertips. There is no associated weakness. This lasted several hours but by the time my evaluation is completely resolved. 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 I did discuss carotid stenosis with him, it sounds as if he were unaware of this diagnosis. At time my evaluation he is back to normal and has no further complaints. Allergies Allergy/AdvReac Type Severity Reaction Status Date / Time No Known Allergies Allergy Mild NONE Unverified 04/15/21 12:25 Home Medications Medication Instructions Recorded Confirmed Type levothyroxine 25 mcg PO DAILY 08/19/19 04/15/21 History verapamil 180 mg PO DAILY 08/19/19 04/15/21 History atorvastatin 20 mg PO HS 04/15/21 04/15/21 History metformin 1,000 mg PO BID 04/15/21 04/15/21 History Past Med/Surg History Medical History (Updated 04/15/21 @ 12:51 by Flako Ross DO) CVA (cerebral vascular accident) 2013 Diabetes Hypercholesteremia Hypothyroid Kidney disease Social History Smoking Status: Never smoker Preferred Language: Occitan Feels Safe at Home: Yes Review of Systems Constitutional: no fever, no chills, no weakness, no weight loss and no weight gain Eyes: as per Subjective / HPI Respiratory: no cough, no chest congestion, no dyspnea and no dyspnea on exertion Cardiovascular: no chest pain, no orthopnea, no palpitations, no lightheadedness and no edema Gastrointestinal: no abdominal pain, no nausea, no vomiting, no constipation and no diarrhea/loose stools Musculoskeletal: no back pain, no neck pain, no joint pain, no stiffness and no myalgia Integumentary: no rash Neurologic: + tingling, + paresthesia and + dizziness; no gait abnormality, no unsteadiness, no falls, no generalized weakness, no paralysis, no numbness, no lack of coordination, no abnormal movements, no seizure-like activity, no headache(s) and no abnormal speech Physical Exam Constitutional: cooperative and comfortable; no acute distress Neck: trachea midline, no thyromegaly Respiratory: normal respiratory effort Auscultation: lungs clear to auscultation bilaterally; no crackles, no rales, no rhonchi and no wheezes Cardiovascular: Rate/Rhythm: regular rate and regular rhythm Heart Sounds: normal S1 and normal S2; no murmur Gastrointestinal (Abdomen): Inspection/Auscultation: abdomen normal to inspection Percussion/Palpation: abdomen soft; abdomen nontender, no guarding, abdomen not rigid and no hepatosplenomegaly Skin: no rashes, warm and dry Neurologic: PERRL, EOMI, accommodation nl, no face palsy, no dysarthria normal touch/pain/proprioception, CN's II-XI intact bilaterally, deep tendon reflexes 2+ bilaterally and moves all extremities Results & Data Results & Data ([facility]) Vital Signs (Past 12 Hours) Vital Signs Temp Pulse Resp BP Pulse Ox 04/15/21 11:30 66 135/67 95 04/15/21 11:26 95 04/15/21 11:20 67 93 04/15/21 11:15 67 143/69 H 95 04/15/21 10:33 36.8 C 69 16 143/69 H [address] angio neck with con CLINICAL HISTORY: 80 years-old Male with Stroke Like Symptoms. Acute strokelike symptoms COMPARISON STUDY: CT head and CTA neck studies of same day TECHNIQUE: Following the IV administration of 120 mL of Optiray, CT angiogram of the neck was performed from the aortic arch to the skull base. Images are reviewed in the axial, sagittal, and coronal planes. 3-D MIPS images are created and assessed. IV contrast was administered without complication. All measurements were calculated based on NASCET criteria. A dose lowering techni que was utilized adhering to the principles of ALARA. FINDINGS: Mild atherosclerotic plaque the thoracic aorta arch. Patency of the innominate and imaged subclavian arteries. The common carotid arteries are widely patent. Moderate mixed plaque of the carotid bulbs and proximal cervical segments of the internal carotid arteries. This results in less than 50% stenosis on the left. There is 70% stenosis of the proximal right ICA on image 244. Dominant left vertebral artery. Atheromatous plaque at the origin of the left vertebral artery results in at least 50% luminal narrowing. The left vertebral artery is dominant. Developmentally diminutive right vertebral artery. There is at least mild luminal narrowing at the origin of the right vertebral artery. No pneumothorax. Unremarkable thyroid. Mild medial deviation of the left vocal fold. No discrete mass identified. Nonspecific mildly prominent level 1 lymph nodes measure up to 7 mm. Mild polypoid mucosal thickening of the left maxillary sinus. Degenerative changes of the spine. IMPRESSION: Atherosclerotic plaque of the carotid bulbs and proximal cervical segments of the internal carotid arteries results in 70% stenosis on the right and less than 50% stenosis on the left. PG Care Time/CCT Total # of Minutes Spent Total Time Spent with Patient: Total time spent is greater than 50% in coordination of care (as documented) at patient's floor/unit and/or counseling patient: Coding Level of Care Code 60609 Initial Inpt Care Lvl 3 Diagnoses Vertigo R42 Diabetes E11.9 Hypercholesteremia E78.00 Hypothyroid E03.9 Carotid stenosis I65.29
[2021-04-15] MEDS ORDERED: GLUCAGON FOR INJ 1 MG VIAL SQ PRN (14:03)
[2021-04-15] MEDS ORDERED: GLUCOSE 40% GEL 15 GM TUBE PO PRN (14:03)
[2021-04-15] MEDS ORDERED: ACETAMINOPHEN 325 MG TAB PO PRN (14:03)
[2021-04-15] MEDS ORDERED: DEXTROSE 50% 50 ML SYRINGE IV PRN (14:03)
[2021-04-15] MEDS ORDERED: PHARMACIST DISCHARGE MED REC CONSULT PRN (14:03)
[2021-04-15] MEDS ORDERED: CARBOHYDRATES FOR HYPOGLYCEMIA PO PRN (14:03)
[2021-04-15] MEDS ORDERED: GLUCOSE 10 TABS/TUBE PO PRN (14:03)
[2021-04-15] MEDS ORDERED: ASPIRIN 81 MG CHEW PO ONE (14:03)
[2021-04-15] MEDS ORDERED: ONDANSETRON INJ 2 MG/ML 2 ML VIAL IV PRN (14:03)
[2021-04-15] MEDS: HEPARIN SOD 5,000 UNIT/0.5 ML VIAL SQ SCH ×2 (14:47→20:47)
--- NOTE | 2021-04-15 16:29 | Magnetic Resonance Report ---
MR brain wo con HISTORY: 80 years-old Male CVA/TIA acute dizziness with strokelike symptoms COMPARISON: Head CT of same day, brain MRI 10/05/2013 TECHNIQUE: Multiplanar multisequence MRI of the brain was obtained without the use of IV contrast. FINDINGS: The cafe lead localizer images demonstrate no gross extracranial abnormality. No restricted diffusion to suggest acute or subacute infarct. 4 mm pineal gland cyst. Partially empty sella. No acute intracrani al hemorrhage, midline shift, abnormal extra-axial collection, hydrocephalus or intracranial mass. Ag e-related involutional changes. Moderate patchy T2/FLAIR hyperintensities are noted throughout the wh ite matter suggestive of chronic microvascular ischemic disease. Cerebral venous sinuses and major ar terial flow voids are patent. Mastoid air cells are clear. Mild mucosal thickening of the paranasal s inuses. Prior bilateral lens repair. The skull and soft tissues are unremarkable. IMPRESSION: No acute intracranial abnormality, specifically there is no evidence of acute or subacute infarct. ACT 112: Negative or not required by law. The above report was generated using voice recognition software. It may contain grammatical, syntax o r spelling errors. Electronically signed by: Gabe Graham M.D. 04/15/2021 4:28 PM
[2021-04-15] MEDS: INSULIN ASPART 100 UNITS/ML 3 ML PEN SC SCH ×2 (17:18→20:46)
[2021-04-15 18:39] LABS: Appearance Urine Clear (Clear); Bacteria Urine Automated Negative (Negative); Bilirubin Urine Negative (Negative); Blood Urine Negative (Negative); Cast Urine Automated 0 /lpf (0-5); Color Urine Yellow; Glucose Urine UA Negative (Negative); Ketones Urine Negative (Negative); Leukocyte Esterase Urine Negative (Negative); Nitrite Urine Negative (Negative); RBC Urine Automated 0-4 /hpf (0-4); Specific Gravity Urine 1.023 (1.000-1.030); Urobilinogen Urine Negative (Negative); WBC Urine Automated 0 /hpf (0-5)
[2021-04-15 18:40] LABS: Protein Urine Trace (Negative)
[2021-04-15] MEDS ORDERED: ATORVASTATIN 20 MG TAB PO SCH (21:00)
[2021-04-16] MEDS: HEPARIN SOD 5,000 UNIT/0.5 ML VIAL SQ SCH ×2 (06:08→14:45)
[2021-04-16] MEDS ORDERED: LEVOTHYROXINE SODIUM 25 MCG TABLET PO SCH (06:30)
[2021-04-16 07:48] LABS: Basophils # (auto) 0.03 K/uL (0-0.2); Basophils % (auto) 0.4 %; Eosinophils # (auto) 0.35 K/uL (0-0.5); Eosinophils % (auto) 5.1 %; Hematocrit (blood only) 42.4 % (42-52); Hemoglobin 14.9 g/dL (14.0-18.0); Immature Granulocytes # (auto) 0.02 K/uL (0.00-0.02); Immature Granulocytes % (auto) 0.3 %; Lymphocytes # (auto) 2.34 K/uL (1.2-3.4); Lymphocytes % (auto) 34.4 %; Mean Corpuscular Hemoglobin 32.5 pg (25-34); Mean Corpuscular Hgb Conc 35.1 g/dL (32-36); Mean Corpuscular Volume 92.6 fL (80-100); Mean Platelet Volume 9.3 fL (7.4-10.4); Monocytes # (auto) 0.61 K/uL (0.11-0.59); Neutrophils # (auto) 3.46 K/uL (1.4-6.5); Neutrophils % (auto) 50.8 %; Platelet Count 161 K/uL (130-400); RDW Coefficient of Variation 12.3 % (11.5-14.5); RDW Standard Deviation 41.8 fL (36.4-46.3); Red Blood Count 4.58 M/uL (4.7-6.1); White Blood Count 6.81 K/uL (4.8-10.8)
[2021-04-16 07:54] LABS: Estimated Average Glucose 137 mg/dl; Hemoglobin A1C 6.4 % (4.5-5.6)
[2021-04-16 08:05] LABS: BUN Creatinine Ratio 15.2 (10-20); Calcium 9.1 mg/dl (8.5-10.1); Creatinine Clr Calc Pharmacy 54.1 ml/min; Est GFR (African American) 82.6 ml/min; Est GFR (Non-African American) 71.3 ml/min; Potassium 3.9 mmol/L (3.5-5.1)
[2021-04-16] MEDS: INSULIN ASPART 100 UNITS/ML 3 ML PEN SC SCH ×2 (08:34→11:18)
--- NOTE | 2021-04-16 08:37 | Neurology Consultation ---
Date of Consultation April 16, 2021 Assessment & Plan (1) TIA (transient ischemic attack): (2) Dizziness: (3) Numbness and tingling of right arm: (4) Carotid stenosis: (5) Hypertension: this patient had an episode of positional vertigo followed by right upper extremity numbness and tingling for several hours. All of his symptoms have resolved and his neurologic examination shows no focal findings, meningeal signs, or encephalopathy. I believe this episode is consistent with a transient ischemic attack. The patient does have a history of some high blood pressure but is not been that high during this admission. MRI of the brain shows no new stroke but does show old small vessel ischemic disease of a mild nonspecific nature. The patient has right greater than left proximal carotid stenosis. Recommendations: 1. discontinue 81 milligram aspirin 2. Initiate clopidogrel 75 milligrams daily 3. Awaiting hemoglobin A1c and fasting lipid profile results. 4. Treat hypertension as you are doing, aiming for a mean arterial pressure of 95-100. 5. increase activity. Echocardiogram is pending. 6. otherwise, I have no further neurologic testing or treatment recommendations to make at this time. I can follow up as an outpatient in 3-4 weeks. Overall, I spent a total of 100 minutes with this case including review of records, review of MRI films, direct evaluation the patient at bedside, and discussion of the case with the patient at bedside, RN at bedside, and Dr. Kamini boyce, including differential diagnosis and treatment options. History of Present Illness Reason for Consultation: Patient is a 80-year-old, who I was asked to see the request of Dr. Ross, Requesting Physician: patient has had issues with low back pain since 2011 and carries a diagnosis of lumbar spinal stenosis. He has never had surgery but had seen Dr. Sorenson in the past. 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 He also felt ill. Apparently his blood pressure was " very high". Apparently he was told he had a "mini-stroke" but does not seem like he any imaging studies. He took 81 milligram aspirin tablet for several years but then read an article about fact that could cause bleeding and microhemorrhages so he stopped it. He has been off aspirin for probably 5 years. In the evening of Meghana 9th he was stretching and doing exercises on the floor. He stood up and had a several minute episode vertigo ( room spinning ) and feeling pulled to the left. He had no vision issues or nausea. 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 he went to bed around midnight. He awoke at 0630 morning of April 15. He stood up from bed had the sudden onset of intense vertigo feeling pulled the left. This lasted several minutes and he was feeling a little bit weak in general and his right hand had a tingling sensation. This tingling lasted several hours. On the advice of his primary care physician he went to the emergency room. He arrived April 15 to the emergency room at 1033, with a temperature 36.8, pulse 69 regular, respiratory rate 16, blood pressure 143/69, and O2 saturation 96 percent. By the time he got to the emergency room his symptoms were completely resolved and his NIH stroke scale score was 0. He felt back to normal. CT scan of the head was unremarkable. CT angiography revealed hypoplastic distal left vertebral artery and 70 percent stenosis of the proximal right internal carotid artery and less than 50 percent stenosis of the left internal carotid artery proximally. MRI of the brain showed no acute stroke. There was mild general, nonspecific old small vessel ischemia seen and some mild generalized atrophy consistent with age. I reviewed these films with the patient at bedside. CBC was unremarkable. Glucose was 167 otherwise Chem profile was unremarkable. Chest x-ray was Unremarkable. Lipid profile and hemoglobin A1c are pending. Echocardiogram is pending. This morning the patient's blood pressure was 180/83. He remains asymptomatic. Attending Physician: Jovanny Christianson MD Allergies Allergy/AdvReac Type Severity Reaction Status Date / Time No Known Allergies Allergy Mild NONE Unverified 04/15/21 12:25 Home Medications Medication Instructions Recorded Confirmed Type levothyroxine 25 mcg PO DAILY 08/19/19 04/15/21 History verapamil 180 mg PO DAILY 08/19/19 04/15/21 History atorvastatin 20 mg PO HS 04/15/21 04/15/21 History metformin 1,000 mg PO BID 04/15/21 04/15/21 History Patient History Medical History CVA (cerebral vascular accident) 2012 Diabetes Hypercholesteremia Hypothyroid Kidney disease Family History Mother , age 84 of uncertain cause Hypertension Father , age 64 with tuberculosis Tuberculosis Social History Smoking Status: Former smoker Tobacco Type: Cigarettes Number of Years Since Quit: 40; Hx Alcohol Use: Yes Alcohol type: wine Alcohol Intake Frequency Comment: 1 glass with dinner 4 times per week Hx Substance Use: No Preferred Language: [place] Islander Communication Ability: Effective Custom Harvester Required: No Beliefs That Will Affect Care: None Current Living Situation: Spouse Current Living Situation Comment: [facility] current occupational status: retired 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 Other Information That Helps Us Care for You: No Feels Safe at Home: Yes Safety Concerns: Feels Safe At This Time Assistive Devices: None Review of Systems Constitutional: no fever, no fatigue and no weakness Eyes: no diplopia, no eye pain and no worsening vision Ear, Nose, Mouth, Throat: no ear pain, no tinnitus, no hearing loss, no dizziness, no hoarseness and no dysphagia Respiratory: no cough and no dyspnea Cardiovascular: no chest pain, no palpitations and no lightheadedness Gastrointestinal: no abdominal pain, no nausea and no vomiting Genitourinary: no dysuria and no urinary incontinence Musculoskeletal: + back pain; no neck pain, no radicular pain, no joint pain and no myalgia Integumentary: no rash and no lesions Neurologic: no gait abnormality, no localized weakness, no generalized weakness, no tingling, no numbness, no tremor(s), no abnormal movements, no headache(s), no abnormal speech, no confusion and no memory loss Psychiatric: no depression, no irritability, no anxiety, no difficulty concentrating, no confusion and no hallucinations Endocrine: no fatigue and no flushing Hematologic / Lymphatic: no easy bleeding and no easy bruising Allergy / Immunological: no urticaria and no problem reported Exam (Neuro) Physical Exam: The patient is right-handed. The patient is awake, alert, and attentive. Speech is normal without any aphasia or dysarthria. he can name objects, repeat phrases, and has normal spontaneous speech. Mentation and thought processes are intact, with orientation to person, place and time, and normal fund of knowledge. Attention and concentration are normal. Mood and affect are normal and appropriate. General appearance and grooming are normal. Short and long-term memory are intact. Pupils are 3 mm bilaterally and reactive to light. Extraocular eye muscles are intact without nystagmus. Visual acuity and visual crandall seem normal grossly to confrontation. There are no deficits to sensation in the face in all 3 distributions of the fifth cranial nerve bilaterally. Corneal reflexes are positive bilaterally. Facial strength and symmetry was normal bilaterally. Hearing seems normal to whisper and finger rub bilaterally. Palate moves well without asymmetry. There is normal sternocleidomastoid and trapezius (shoulder shrug) strength bilaterally. Tongue is midline with good strength bilaterally. Neck has a full range of motion without discomfort. There are no cervical bruits bilaterally. There are no cranial or ocular bruits. He has no vertigo with movement of his eyes or movement of his head in any direction. When he stands up he does not get vertigo either. Heart is without murmur. There is a regular rhythm and rate. Cervical, thoracic, and lumbar spine are nontender to palpation. Gait is narrow based, with good arm swing, turns, and stance. Balance is normal eyes open or closed. With outstretched arms there is no drift. There are no resting, postural, or action tremors. There is no ataxia with finger to nose testing. There is good facility in the hands. No other abnormal involuntary movements are noted. Motor strength is 5/5 diffusely in the arms bilaterally including deltoids, biceps, triceps, brachioradialis, wrist flexors and extensors, reception specialist, and intrinsic hand muscles. Motor strength is 5/5 diffusely in the legs bilaterally including hip flexors, quadriceps, hamstrings, gastrocnemius, tibialis anterior, tibialis posterior, and Peroneii muscles. Toe extensors are normal and there is good bulk in the extensor digitorum brevis muscles bilaterally. The limbs have good tone without rigidity or spasticity. There is no atrophy noted in the muscles. Muscle bulk is normal, there is no tenderness to palpation, no myotonia to percussion, and no fasciculations seen. Sensory examination is intact to touch and pin throughout all 4 limbs diffusely. Reflexes are 1/4 in the biceps, triceps, brachioradialis, quadriceps, and Achilles tendons bilaterally. There is no clonus bilaterally. Toes are downgoing with plantar stimulation bilaterally. Peripheral pulses are present and of normal quality distally in all 4 limbs. There is no peripheral edema noted in the limbs. Results & Data ([facility]) Vital Signs (Past 12 Hours) Vital Signs Temp Pulse Pulse Resp BP BP Pulse Ox 04/16/21 07:52 36.5 C 65 19 180/83 H 94 04/16/21 07:08 69 04/16/21 04:00 36.5 C 65 17 151/74 H 93 04/16/21 00:00 68 04/15/21 23:00 36.7 C 68 18 171/79 H 94 04/15/21 20:40 71 176/77 H 163/82 H PG Care Time/CCT Total # of Minutes Spent Total Time Spent with Patient: Total time spent is greater than 50% in coordination of care (as documented) at patient's floor/unit and/or counseling patient: Coding Level of Care Code 79913 Initial Inpt Care Lvl 3 Diagnoses TIA (transient ischemic attack) G45.9 Dizziness R42 Numbness and tingling of right arm R20.0; R20.2 Carotid stenosis I65.29 Hypertension I10 Time Spent (min) 100 Comment Add [id number] to the [id number]
[2021-04-16] MEDS ORDERED: VERAPAMIL HCL 180 MG TABCR PO SCH (09:00)
[2021-04-16] MEDS ORDERED: ASPIRIN 81 MG ECTAB PO SCH (09:00)
--- NOTE | 2021-04-16 13:00 | XCELERA ---
[id number] \\[id number]
[2021-04-16] MEDS ORDERED: STROKE PATIENT DISCHARGE STA (14:38)
--- NOTE | 2021-04-16 15:12 | Pharmacy Report ---
Pharmacist Stroke Counseling - Date of Service April 16, 2021 - Scope: Pharmacy has been consulted to provide medication discharge counseling for this patient admitted with transient ischemic attack as per the Pharmacist Discharge Counseling for Stroke Patients Protocol. - Medications on Discharge: Home Medications Medication Instructions Recorded Confirmed levothyroxine 25 mcg PO DAILY 08/19/19 04/15/21 verapamil 180 mg PO DAILY 08/19/19 04/15/21 atorvastatin 20 mg PO HS 04/15/21 04/15/21 metformin 1,000 mg PO BID 04/15/21 04/15/21 New Rx's Medication Instructions Recorded clopidogrel [Plavix] 75 mg PO DAILY #30 tab 04/16/21 - Action: The above medications, specifically ones for stroke treatment/prophylaxis, have been reviewed in detail with the patient and/or patient customer field representative(s) prior to discharge. This includes indication, common adverse reactions, drug interactions, and medication administration. Medication counseling has been employed using the teach-back method to ensure understanding. - Outcome: The patient and/or patient customer field representative(s) have demonstrated understanding of the medications. Additional comments: - Counseling session occurred with patient and patient's present - Understanding of medication addition, no obvious barriers to medication compliance identified - Pillbox provided Thank you for allowing pharmacy to be involved in the care of this patient. Please call [phone] with any additional questions
--- NOTE | 2021-04-16 18:12 | Discharge Summary ---
Date of Service April 16, 2021 Admission HPI Per Admitting Provider This is a 80-year-old male with past medical history of type 2 diabetes mellitus, previous CVA in 2013 the presents today complaining of intermittent vertigo. Patient is accompanied by his and both are pleasant and good historians. Patient tells me he was doing well until last night. He was doing some stretches on the floor but when he stood up he had an episode of vertigo. This lasted approximately 5 minutes. At the time, was not accompanied with any other symptoms such as headache, numbness, tingling, or weakness. He thought he may have stood up too fast and the symptoms resolved. However, patient woke up at 630 this morning the vertigo had return although it was much worse. He also had some paresthesias in the right upper extremity. This radiated from the inferior surface of the arm down to the fingertips. There is no associated weakness. This lasted several hours but by the time my evaluation is completely resolved. 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 I did discuss carotid stenosis with him, it sounds as if he were unaware of this diagnosis. At time my evaluation he is back to normal and has no further complaints. Principal Diagnosis Possible TIA Discharge Exam Constitutional WD/WN, vitals as above Eyes EOM intact bilaterally; no conjunctival abnormality ENMT external ear and nose normal, oropharynx normal Neck trachea midline, no thyromegaly normal visual inspection Respiratory normal respiratory effort, lungs clear to auscultation no respiratory distress Cardiovascular RRR, no murmur, no edema Gastrointestinal (Abdomen) Inspection/Auscultation: abdomen normal to inspection; abdomen not distended Musculoskeletal no cyanosis or clubbing, extremities motor strength 5/5 Skin no rashes, warm and dry Neurologic moves all extremities and awake Psychiatric Orientation: alert, oriented to person and cooperative Discharge Data Allergies Allergy/AdvReac Type Severity Reaction Status Date / Time No Known Allergies Allergy Mild NONE Unverified 04/15/21 12:25 Consultations 04/15/21 12:10 ED Decision to Admit Stat 04/15/21 14:03 Consult Neurology Routine Ordered Studies 04/15/21 10:46 CT angio head w con Stat CT angio neck with con Stat CT head/brain wo con Stat 04/15/21 14:03 MR brain wo con Routine Hospital Course (1) Vertigo: With paresthesias and findings of carotid stenosis, considered TIA per neurology. - Started on Plavix per neurology. - Hold ASA - A1c was at goal. Lipids at goal. - Echo showed no ASD. - Follow up with neurology in 3-4 weeks. (2) Diabetes: A1c was 6.4%. - Resume normal home meds on discharge. (3) Hypercholesteremia: Lipids at goal. - Atorvastatin as per outpatient dosing (4) Hypothyroid: No recent TSH, but no indication of hyper or hypothryoidism. - Continue levothyroxine as per outpatient dosing (5) Carotid stenosis: - Continue atorvastatin - Plavix as above. Total Time Total Time Spent Total Time Spent (In Minutes): 35 Discharge Plan Discharge Items Patient Disposition: Home - Self-Care Reason For Visit: VERTIGO,R/O CVA Discharge Diagnosis: Vertigo, possible TIA ("mini-stroke") Condition on Discharge: Good Activity: Resume your previous activity Non-emergency contact: Primary Care Provider and Neurologist Call non-emergency contact if: your symptoms worsen Follow-up/Referrals: Jian Mccain MD [Physician] - (Please see Dr. Mccain or a colleague in 4 weeks.) Juanjo Wong MD [Primary Care Provider] - Diet: Carb Consistent or DM2 and Heart Healthy Addtl Attending Provider Instructions: You were in the hospital for vertigo. Dr. Mccain (the neurologist) felt this might be a TIA or "mini-stroke" as they are sometimes called. Please start Plavix (clopidogrel) daily. Your A1c was 6.4% which indicates good diabetes control. Your cholesterol was also good. Pending Studies at Discharge: No Stand-Alone Forms: Medications to Prevent Stroke, My [facility] [employer], Smoking Cessation Medications and DC Order Prescriptions: New clopidogrel [Plavix] 75 mg tablet 75 mg PO DAILY Qty: 30 RF: 0 Continued verapamil 180 mg tablet extended release 180 mg PO DAILY RF: 0 levothyroxine 25 mcg tablet 25 mcg PO DAILY RF: 0 metformin 500 mg tablet 1,000 mg PO BID RF: 0 atorvastatin 20 mg tablet 20 mg PO HS RF: 0 Discharge Orders: Discharge Order (Routine); Ordered 04/16/21 Ordered By: Jovanny Vallecillo/Other Patient Handouts: High Blood Sugar (Hyperglycemia), Hypoglycemia (Low Blood Sugar), Managing Type 2 Diabetes, A1C Admission Data Admit Date/Time: 04/15/21 12:58 Attending Provider: Jovanny Christianson Admit Provider: Flako Ross Primary Care Provider: Juanjo Wong Other Providers: Jian Mccain ; Jovanny Christianson Other Interventions: Discharge Summary Assessment (RN) Last Done: 04/16/21 08:46 Coding Level of Care Code D/C Day Management >30 mins Diagnoses Vertigo R42 Diabetes E11.9 Hypercholesteremia E78.00 Hypothyroid E03.9 Carotid stenosis I65.29
--- NOTE | 2021-04-17 07:20 | Electrocardiogram Report ---
Test Reason : Blood Pressure : / mmHG Vent. Rate : 072 BPM Atrial Rate : 072 BPM P-R Int : 222 ms QRS Dur : 106 ms QT Int : 398 ms P-R-T Axes : 048 024 057 degrees QTc Int : 435 ms Sinus rhythm with sinus arrhythmia with 1st degree A-V block Nonspecific T wave abnormality Abnormal ECG When compared with ECG of 19-AUG-2019 18:39, LA interval has increased Confirmed by Curtis Collier ([id number]) on 04/17/2021 7:19:51 AM Referred By: REFERRED SELF Confirmed By:Curtis Collier
== END 2021-04-16 15:35 | disposition home or self-care (01) | DRG 69 ==
LOC: ED 10:26 → SUATTDRO 12:58 → 2S 12:58

== ENCOUNTER 2024-01-19 17:09 | Observation (INO) ==
--- NOTE | 2024-01-19 17:37 | ED Triage Note ---
Date of Service January 19, 2024 Provider in Triage Author: Amita Owen History of Present Illness This patient was briefly evaluated while in triage. An abbreviated physical exam was performed. This patient is a 83-year-old Male who presents to the ED for evaluation of fever, urinary pain and frequency, and low back pain that started this morning. Saw PCP today and they sent here. No history of UTI or kidney infection in past. Urine in office was infected today. History of bladder cancer in remission. Physical Exam CONSTITUTIONAL: No acute distress. Well appearing. RESPIRATORY: Clear to auscultation bilaterally. Equal expansion bilaterally. CARDIOVASCULAR: Tachycardic rate, regular rhythm. GASTROINTESTINAL: Soft, nontender. Bilateral CVA tenderness. NEUROLOGIC: Alert and oriented X 4 with normal affect. Initial orders for labs and / or imaging were placed and patient was placed in the waiting area until a bed is available. Please see further documentation for the full ED course.
[2024-01-19] MEDS: SODIUM CHLORIDE 0.9% 1,000 ML IV ONE ×2 (18:37→22:35)
--- NOTE | 2024-01-19 18:42 | XRay Report ---
XR chest 1V portable HISTORY: cough, fever COMPARISON: Chest 04/15/2021. FINDINGS: No pneumothorax. No pleural effusions. The cardiac silhouette remains mildly enlarged. No n ew focal lung consolidations to suggest pneumonia. No evidence for pulmonary edema. Degenerative josé ges within the shoulders. No acute fractures identified. IMPRESSION: No significant change compared to the prior study. No acute process. ACT 112: Negative or not required by law. Electronically signed by: Mauro Colbert M.D. 01/19/2024 6:40 PM
[2024-01-19] MEDS: ACETAMINOPHEN 325 MG TAB PO STA (18:49)
[2024-01-19 18:58] LABS: Basophils # (auto) 0.06 K/uL (0.00-0.20); Basophils % (auto) 0.3 %; Hematocrit (blood only) 42.8 % (42.0-52.0); Hemoglobin 14.6 g/dl (14.0-18.0); Immature Granulocytes # (auto) 0.11 K/uL (0.01-0.20); Immature Granulocytes % (auto) 0.6 %; Lymphocytes # (auto) 0.99 K/uL (1.20-3.40); Lymphocytes % (auto) 5.7 %; Mean Corpuscular Hemoglobin 30.7 pg (25.0-34.0); Mean Corpuscular Hgb Conc 34.1 g/dL (32.0-36.0); Mean Corpuscular Volume 90.1 fL (80.0-100.0); Mean Platelet Volume 9.3 fL (9.4-12.4); Monocytes # (auto) 1.28 K/uL (0.11-0.59); Monocytes % (auto) 7.4 %; Neutrophils # (auto) 14.79 K/uL (1.40-6.50); Platelet Count 148 K/uL (130-400); RDW Standard Deviation 39.4 fL (36.4-46.3); Red Blood Count 4.75 M/uL (4.70-6.10); White Blood Count 17.23 K/ul (4.8-10.8)
[2024-01-19 19:15] LABS: Albumin Globulin Ratio 1.3 (0.9-2); Albumin Level 4.4 gm/dl (3.4-5.0); BUN Creatinine Ratio 14.9 (10-20); Bilirubin,Total 2.3 mg/dl (0.2-1.0); Creatinine Clr Calc Pharmacy 50.9 ml/min; Est GFR (African American) 79.9 ml/min; Est GFR (Non-African American) 68.9 ml/min; Globulin 3.3 gm/dl (2.5-4.0); Potassium 3.9 mmol/L (3.5-5.1); Total Protein 7.7 gm/dl (6.0-8.3)
[2024-01-19] MEDS: OPTIRAY 320 100ml IV ONE (19:26)
[2024-01-19 19:33] LABS: Appearance Urine Clear (Clear); Bacteria Urine Automated 4+ (Negative); Bilirubin Urine Negative (Negative); Blood Urine 2+ (Negative); Color Urine Yellow; Glucose Urine UA 1+ (Negative); Ketones Urine Trace (Negative); Leukocyte Esterase Urine Trace (Negative); Nitrite Urine Positive (Negative); Protein Urine 2+ (Negative); RBC Urine Automated 0-4 /hpf (0-4); Specific Gravity Urine 1.011 (1.000-1.030); Urobilinogen Urine Negative (Negative); WBC Urine Automated >30 /hpf (0-5)
--- NOTE | 2024-01-19 19:45 | Emergency Department Note ---
Impression & Plan Fever, Urinary frequency, Back pain ED Provider Note NAME: TC JORGE AGE: 83 SEX: Male INFORMANT: Patient ED PROVIDER(S): Jonh Fountain MD CHIEF COMPLAINT: Fever and weakness PLAN: Disposition: Admit Outpatient prescription management: none Referral: None MEDICAL DECISION MAKING: Patient presented because of weakness and fever. He had urinary symptoms. Imaging, blood work, and fluids administered. The patient was profoundly weak and required a two-person assist to stand. Patient was found to have a leukocytosis. Chemistry panel was unremarkable. Urinalysis is concerning for infection. Lactate negative. Cultures were done of the urine and blood. Patient was empirically given IV Rocephin. CT imaging does show cystitis. He does have fever and some flank tenderness. This is concerning for pyelonephritis. Given his significant weakness the patient will need further evaluation and management in the hospital. Patient was hydrated with normal saline. Consultation was made with Dr. [facility]. Patient was evaluated in the ER and admitted for further management. Care/management discussed with: none Level of care consideration(s): After review of the information above and other included data, I feel the patient requires escalation of care to admission Triage Nursing notes: reviewed and agree them. Vital Signs: reviewed and remarkable for no significant abnormalities Additional History obtained from: Patient's . He has had decreased p.o. intake recently and is very weak. Chronic Medical/Social Conditions affecting care: Hypothyroidism, diabetes Prior/ Outside/ External records reviewed: none Differential Diagnosis: Renal colic, UTI, appendicitis, diverticulitis, mesenteric ischemia, aortic pathology, infections, inflammatory bowel disease, sepsis, pyelonephritis, as well as other pathologies. Diagnostics, independently interpreted by me: ECG: Twelve-lead ECG was sinus tachycardia 108 bpm. Right axis deviation. Incomplete right bundle branch block. Nonspecific ST. Cardiac Monitoring: Cardiac monitoring ordered by me: The patient was placed on continuous cardiac monitoring and observed. It revealed a sinus tachycardic rhythm at 104 beats per minute without ectopy or evidence of dysrhythmia. Medical decision rules: none Imaging studies: I refer you to the EMR for further details. HPI: 83 year old Male arrives for evaluation of fever and weakness. This started yesterday and is worsening today. The patient also notes the following associated symptoms, urinary frequency and flank pain. The patient notes no appetite. noted that he was very weak and could not stand on his own. Patient did go to the primary office but was referred to the ER for further evaluation. The patient has found no relieving factors. Current pain is rated as 6/10. No sick contacts. Patient did travel to [place] by car recently. Pt denies LOC, headache,diaphoresis, visual changes, neck pain, chest pain, breathing difficulties, nausea, vomiting, abdominal pain, melena, hematochezia, numbness, weakness, lymphadenopathy, rash, or other complaints. PAST MEDICAL HISTORY: See Below, CVA, hypothyroidism PAST SURGICAL HISTORY: See Below, SOCIAL HISTORY: See Below, HOME MEDICATIONS: See Below ALLERGIES: See Below VITALS: See Below PHYSICAL EXAMINATION: GENERAL: Awake, alert, age-appropriate appearing, in no distress HENT: Normocephalic, atraumatic. Oropharynx unremarkable. EYES: Normal conjunctiva. Sclera non-icteric. NECK: Inspection normal. Non-tender. Supple. No nuchal rigidity. FROM. No masses. RESPIRATORY: Clear to auscultation. No wheezes. No rales. Normal respiratory effort. CARDIAC: Tachycardic rate. Normal rhythm. No murmurs. No rubs. Extremities warm and well perfused. Pulses equal. No JVD. GI: Soft, non-distended. No tenderness to palpation. No rebound or guarding. No masses. RECTAL: Deferred. MUSCULOSKELETAL: Atraumatic. Chest examination reveals no tenderness. The back is symmetrical on inspection without obvious abnormality. There is right CVA tenderness to palpation. No joint edema. LOWER EXTREMITIES: Calves are equal size bilaterally and non-tender. No edema. No discoloration. NEURO: Normal sensorium. No focal sensory or motor deficits noted. Generally weak. Requiring 2 person assist to stand SKIN: No rash or jaundice noted. PROCEDURES: none CRITICAL CARE: none OBSERVATION NOTE: none Past Med/Surg History Medical History CVA (cerebral vascular accident) 2012 Hypothyroid Hypercholesteremia Diabetes Kidney disease Bladder cancer Surgical History No significant past surgical history Family History Mother , age 84 of uncertain cause Hypertension Father , age 64 with tuberculosis Tuberculosis Social History Smoking Status: Former smoker Tobacco Type: Cigarettes Hx Alcohol Use: Yes Alcohol type: wine Alcohol Intake Frequency Comment: 1 glass with dinner 4 times per week Hx Substance Use: No Preferred Language: Chile[place] Communication Ability: Effective 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 Beliefs That Will Affect Care: None Current Living Situation: Spouse Current Living Situation Comment: Lives with at [place] [facility] current occupational status: 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 Feels Safe at Home: Yes Assistive Devices: None Allergies Allergies Allergy/AdvReac Type Severity Reaction Status Date / Time No Known Allergies Allergy Mild NONE Unverified 01/19/24 20:15 Home Meds Home Medications Medication Instructions Recorded Confirmed levothyroxine 25 mcg tablet 25 mcg PO DAILYBB 08/19/19 01/19/24 verapamil 180 mg tablet,extended 180 mg PO QAM 08/19/19 01/19/24 release atorvastatin 20 mg tablet 20 mg PO HS 04/15/21 01/19/24 metformin 500 mg tablet 1,000 mg PO BID 04/15/21 01/19/24 oxybutynin chloride 10 mg 10 mg PO QAM 01/19/24 01/19/24 tablet,extended release 24 hr Results & Data (ED) Vital Signs Vital Signs - 24 hr 01/19/24 17:11 01/19/24 17:11 01/19/24 18:27 Temperature 36.6 C Temperature Source Temporal Artery Scan Pulse Rate 120 H Pulse Rate [Left Finger] Pulse Rhythm [Left Finger] Pulse Strength [Left Finger] Respiratory Rate 18 Blood Pressure 167/102 H 180/93 H Blood Pressure [Left Arm] Blood Pressure Mean 123 126 Blood Pressure Mean [Left Arm] Pulse Oximetry 93 93 Oxygen Delivery Method Room Air Sepsis Recent Fever Within 48 Hours No Sepsis New/Unexplained Change in Mental Status N/A Sepsis Action Taken by Nursing No Action Required 01/19/24 18:30 01/19/24 18:51 01/19/24 19:47 Temperature Temperature Source Pulse Rate 107 H 99 H Pulse Rate [Left Finger] 102 H Pulse Rhythm [Left Finger] Regular Pulse Strength [Left Finger] Normal Respiratory Rate 22 23 Blood Pressure 167/90 H Blood Pressure [Left Arm] 180/93 H Blood Pressure Mean 115 Blood Pressure Mean [Left Arm] 122 Pulse Oximetry 95 94 Oxygen Delivery Method Room Air Sepsis Recent Fever Within 48 Hours Sepsis New/Unexplained Change in Mental Status Sepsis Action Taken by Nursing 01/19/24 20:00 01/19/24 20:30 01/19/24 20:41 Temperature 37.5 C Temperature Source Oral Pulse Rate 98 H 95 H Pulse Rate [Left Finger] Pulse Rhythm [Left Finger] Pulse Strength [Left Finger] Respiratory Rate 21 24 Blood Pressure 177/89 H 164/92 H Blood Pressure [Left Arm] Blood Pressure Mean 118 116 Blood Pressure Mean [Left Arm] Pulse Oximetry 94 92 Oxygen Delivery Method Room Air Room Air Sepsis Recent Fever Within 48 Hours Sepsis New/Unexplained Change in Mental Status Sepsis Action Taken by Nursing Laboratory Data 01/20/24 04:39 01/20/24 04:38 Lab Results 01/19/24 01/19/24 Range/Units 18:39 19:20 WBC 17.23 H (4.8-10.8) K/ul RBC 4.75 (4.70-6.10) M/uL Hgb 14.6 (14.0-18.0) g/dl Hct 42.8 (42.0-52.0) % MCV 90.1 (80.0-100.0) fL MCH 30.7 (25.0-34.0) pg MCHC 34.1 (32.0-36.0) g/dL RDW Std Deviation 39.4 (36.4-46.3) fL RDW Coeff of Parvin 12.0 (11.5-14.5) % Plt Count 148 (130-400) K/uL MPV 9.3 L (9.4-12.4) fL Immature Gran % (Auto) 0.6 % Neut % (Auto) 86.0 % Lymph % (Auto) 5.7 % [place] % (Auto) 7.4 % Eos % (Auto) 0.0 % Baso % (Auto) 0.3 % Neut # (Auto) 14.79 H (1.40-6.50) K/uL Lymph # (Auto) 0.99 L (1.20-3.40) K/uL [place] # (Auto) 1.28 H (0.11-0.59) K/uL Eos # (Auto) 0.00 (0.00-0.50) K/uL Baso # (Auto) 0.06 (0.00-0.20) K/uL Immature Gran # (Auto) 0.11 (0.01-0.20) K/uL Sodium 134 L (136-145) mmol/L Potassium 3.9 (3.5-5.1) mmol/L Chloride 102 (98-107) mmol/L Carbon Dioxide 21 (21-32) mmol/L Anion Gap 11 (3-11) BUN 15 (6-23) mg/dl Creatinine 1.01 (0.6-1.4) mg/dl Est Cr Clr Drug Dosing 50.9 ml/min Est GFR ( Amer) 79.9 ml/min Est GFR (Non-Af Amer) 68.9 ml/min BUN/Creatinine Ratio 14.9 (10-20) Glucose 193 H (70-99(Fasting)) mg/dl Lactate 1.7 (0.4-2.0) mmol/L Calcium 9.0 (8.6-10.3) mg/dl Total Bilirubin 2.3 H (0.2-1.0) mg/dl AST 35 (13-39) U/L ALT 51 (7-52) U/L Alkaline Phosphatase 59 (34-104) U/L Total Protein 7.7 (6.0-8.3) gm/dl Albumin 4.4 (3.4-5.0) gm/dl Globulin 3.3 (2.5-4.0) gm/dl Albumin/Globulin Ratio 1.3 (0.9-2) Procalcitonin 0.29 (0-0.5) ng/ml Urine Color Yellow Urine Appearance Clear (Clear) Urine pH 7.0 (4.5-7.5) Ur Specific [place] 1.011 (1.000-1.030) Urine Protein 2+ H (Negative) Urine Glucose (UA) 1+ H (Negative) Urine Ketones Trace H (Negative) Urine Blood 2+ H (Negative) Urine Nitrite Positive A (Negative) Urine Bilirubin Negative (Negative) Urine Urobilinogen Negative (Negative) Ur Leukocyte Esterase Trace H (Negative) Urine WBC (Auto) >30 H (0-5) /hpf Urine RBC (Auto) 0-4 (0-4) /hpf U Hyaline Cast (Auto) 1-5 (0-5) /lpf U Epithel Cells (Auto) 5-10 H (0-5) /lpf Urine Bacteria (Auto) 4+ H (Negative) Adenovirus (PCR) Not Detected (NotDetected) B. pertussis DNA (PCR) Not Detected (NotDetected) B.parapertussis DNA PCR Not Detected (NotDetected) C. pneumoniae DNA (PCR) Not Detected (NotDetected) Coronavirus OC43 (PCR) Not Detected (NotDetected) Coronavirus HKU1 (PCR) Not Detected (NotDetected) Coronavirus 229E (PCR) Not Detected (NotDetected) SARS-CoV-2 (PCR) Not Detected (NotDetected) Coronavirus NL63 (PCR) Not Detected (NotDetected) Human Metapneumovir PCR Not Detected (NotDetected) Influenza Type A (PCR) Not Detected (NotDetected) Influenza Type B (PCR) Not Detected (NotDetected) M. pneumoniae (PCR) Not Detected (NotDetected) Parainfluenza 1 (PCR) Not Detected (NotDetected) Parainfluenza 2 (PCR) Not Detected (NotDetected) Parainfluenza 3 (PCR) Not Detected (NotDetected) Parainfluenza 4 (PCR) Not Detected (NotDetected) RSV (PCR) Not Detected (NotDetected) Entero/Rhino (PCR) Not Detected (NotDetected) Administered Medications Enoxaparin Sodium (Enoxaparin Inj 40 Mg/0.4 Ml Syr) 40 mg SQ Q24H SHAWANDA Stop: 02/19/24 08:59 Last Admin: 01/20/24 08:52 Dose: 40 mg Documented By: VON Sodium Chloride (Nss) 1,000 mls @ 125 mls/hr IV .Q8H SHAWANDA Stop: 02/18/24 20:14 Last Admin: 01/20/24 14:13 Dose: 125 mls/hr Documented By: Infusion: 01/20/24 13:14 Dose: Infused Documented By: Admin: 01/20/24 05:14 Dose: 125 mls/hr Documented By: Infusion: 01/20/24 04:41 Dose: Infused Documented By: Admin: 01/19/24 20:41 Dose: 125 mls/hr Documented By: SANDY Insulin Aspart (Insulin Aspart Per Unit Charge) 0 units SC A[facility]S [facility] Stop: 02/19/24 07:29 Last Admin: 01/20/24 14:13 Dose: 3 units Documented By: COURTNEY Co-signed By: KIANA Admin: 01/20/24 09:36 Dose: 3 units Documented By: VON Co-signed By: JOSEPH Levothyroxine Sodium (Levothyroxine Sodium 25 Mcg Tablet) 25 mcg PO DAILYBB SHAWANDA Stop: 02/19/24 06:29 Last Admin: 01/20/24 06:23 Dose: 25 mcg Documented By: POLLY Oxybutynin Chloride (Oxybutynin Chloride Xl 5 Mg Tabcr) [facility] [place]: 02/19/24 08:59 Last Admin: 01/20/24 08:52 Dose: 10 mg Documented By: VON Verapamil HCl (Verapamil Hcl 180 Mg Tabcr) 180 mg [facility] [place]: 02/19/24 08:59 Last Admin: 01/20/24 08:52 Dose: 180 mg Documented By: VON Discontinued Medications Acetaminophen (Acetaminophen 325 Mg Tab) 650 mg PO NOW STA Stop: 01/19/24 17:40 Last Admin: 01/19/24 18:49 Dose: 650 mg Documented By: ROLAND Sodium Chloride (Nss) 1,000 mls @ 999 mls/hr IV .Q1H1M ONE Stop: 01/19/24 18:38 Last Infusion: 01/19/24 19:51 Dose: Infused Documented By: Admin: 01/19/24 18:37 Dose: 999 mls/hr Documented By: ROLAND Ceftriaxone Sodium (Rocephin) 2,000 mg in 50 mls @ 100 mls/hr IV NOW STA Stop: 01/19/24 20:28 Last Infusion: 01/19/24 21:06 Dose: Infused Documented By: Admin: 01/19/24 20:14 Dose: 100 mls/hr Documented By: AMY Sodium Chloride (Nss) 1,000 mls @ 999 mls/hr IV .Q1H1M ONE Stop: 01/19/24 22:45 Last Infusion: 01/20/24 00:00 Dose: Infused Documented By: Admin: 01/19/24 22:35 Dose: 999 mls/hr Documented By: SANDY Ioversol (Optiray 320 100ml) 94 ml IV ONCE ONE Stop: 01/19/24 19:27 Last Admin: 01/19/24 19:26 Dose: 94 ml Documented By: ENID Imaging Data Radiologist's Impression: Chest X-Ray 01/19/24 17:38 XR chest 1V portable HISTORY: cough, fever COMPARISON: Chest 04/15/2021. FINDINGS: No pneumothorax. No pleural effusions. The cardiac silhouette remains mildly enlarged. No new focal lung consolidations to suggest pneumonia. No evidence for pulmonary edema. Degenerative changes within the shoulders. No acute fractures identified. IMPRESSION: No significant change compared to the prior study. No acute process. ACT 112: Negative or not required by law. Electronically signed by: Mauro Colbert M.D. 01/19/2024 6:40 PM Discharge Plan Visit Data Chief Complaint: Fever Stated Complaint: DOCTOR REFERAL, POSSIBLE INFECTION, BACK PAIN ED Provider: Jonh Fountain Discharge Problem: Fever, Urinary frequency, Back pain Patient Disposition: Admitted As Inpatient Discharge Instructions Interventions: ED Discharge Assessment Last Done: 01/19/24 22:14
--- NOTE | 2024-01-19 20:04 | CT Scan Report ---
Exam(s): CT ABDOMEN + PELVIS With Contrast IV Amt: 94 ml optiray 320 EXAM: CT Abdomen and Pelvis With Intravenous Contrast CLINICAL HISTORY: Reason for exam: low back pain, fevers, urinary symptoms. TECHNIQUE: Axial computed tomography images of the abdomen and pelvis with intravenous contrast. CTDI is 15.97 mGy and DLP is 834.86 mGy-cm. Automated exposure control was utilized for the study. A dose lowering technique was utilized adhering to the principles of ALARA. CONTRAST: Patient received 94 ml optiray 320 of IV contrast COMPARISON: 08/30/18 FINDINGS: Lung bases: Unremarkable. No mass. No consolidation. ABDOMEN: Liver: Hepatomegaly and steatosis. Benign hepatic cysts measuring up to 22 mm. Gallbladder and bile ducts: Unremarkable. No calcified stones. No ductal dilation. Pancreas: Unremarkable. No mass. No ductal dilation. Spleen: Unremarkable. No splenomegaly. Adrenals: Unremarkable. No mass. Kidneys and ureters: Symmetric renal enhancement. No hydronephrosis per. Stomach and bowel: Unremarkable. No mucosal thickening. No bowel obstruction. PELVIS: Appendix: Appendix not identified. Bladder: Borderline bladder wall thickening in the setting of incomplete distention. Reproductive: Prostatomegaly. ABDOMEN and PELVIS: Intraperitoneal space: Stable chronic nonspecific fat stranding in the jejunal mesentery. No free fluid or free air. Bones/joints: Age-related degenerative changes of the spine. No acute fracture or dislocation. Soft tissues: Unremarkable. Vasculature: Atherosclerosis. No aortic aneurysm. Lymph nodes: No lymphadenopathy. IMPRESSION: 1. Borderline bladder wall thickening, cystitis versus distention. Correlate with urinalysis. 2. Otherwise, no acute findings. Electronically signed by: Marine Parra M.D. 01/19/24 20:04 PM
[2024-01-19] MEDS: cefTRIAXone SODIUM 2,000 MG/50 ML BAG IV STA (20:14)
[2024-01-19 20:19] LABS: Adenovirus PCR Not Detected (NotDetected); Bordetella parapertussis PCR Not Detected (NotDetected); Bordetella pertussis PCR Not Detected (NotDetected); Chlamydia pneumoniae PCR Not Detected (NotDetected); Coronavirus 229E PCR Not Detected (NotDetected); Coronavirus CoV-2 (COVID19)PCR Not Detected (NotDetected); Coronavirus HKU1 PCR Not Detected (NotDetected); Coronavirus NL63 PCR Not Detected (NotDetected); Coronavirus OC43PCR Not Detected (NotDetected); Human Metapneumovirus PCR Not Detected (NotDetected); Influenza A PCR Not Detected (NotDetected); Influenza B PCR Not Detected (NotDetected); Mycoplasma pneumoniae PCR Not Detected (NotDetected); Parainfluenza Virus 1 PCR Not Detected (NotDetected); Parainfluenza Virus 2 PCR Not Detected (NotDetected); Parainfluenza Virus 3 PCR Not Detected (NotDetected); Parainfluenza Virus 4 PCR Not Detected (NotDetected); Respiratory Syncytial VirusPCR Not Detected (NotDetected); Rhinovirus/Enterovirus PCR Not Detected (NotDetected)
--- NOTE | 2024-01-19 20:40 | History & Physical Report ---
Date of Service January 19, 2024 Assessment & Plan (1) Sepsis due to urinary tract infection: Plan: - SIRS positive with leukocytosis=17 and tachycardia, likely source urine - lactate= 1.7 - fluid resuscitation s/p 2L IVF, continue maintenance fluids @ 125ml/hr - blood and urine cultures pending - no prior cultures for comparison, received ceftriaxone in the ED- plan to continue Sepsis fluid amount 2238mL (2) Total bilirubin, elevated: Plan: - total bilirubin= 2.3; no transaminitis - no prior elevations - CT A&P without acute findings, US gallbladder pending - Repeat CMP qAM (3) Hypertension: Plan: - continue verapamil 180mg qAM (4) Hypothyroid: Plan: - continue levothyroxine (5) Hypercholesteremia: Plan: - continue atorvastatin (6) Diabetes: Plan: - hold metformin - last hemoglobin a1c= 6.8 04/2023 - repeat hemoglobin a1c qAM - SSI with glucose checks ACHS Plan Diet: DM2 Code: Full VTE Prophylaxis: Lovenox History of Present Illness Primary Care Provider: Delbert Guzmán MD 83 year old male with a past medical history of bladder cancer 2010, HTN, HLD, hypothyroidism, DM2 presenting with concern for UTI. Subjective fever x 1day, urinary incontinence, increased frequency, dysuria, flank pain B/L, body aches. Increased weakness, difficultly ambulating. History of bladder cancer treated in 2010. states that he has been weak to the point where he is having trouble getting out of bed, started this morning. Was seen by PCP this afternoon. Tachycardic in the office at 110s, febrile with temp of 38.8. UA positive for blood, nitrites, LE and recommend that he got to ED. In the ED patient was found to be tachycardic in the 90s, Leukocytosis=17, UA positive for blood, nitrite, LE. CXR without acute pathology. CT A&P with bladder wall thickening. Was given ceftriaxone and 1L IVF. Allergies Allergy/AdvReac Type Severity Reaction Status Date / Time No Known Allergies Allergy Mild NONE Unverified 01/19/24 20:15 Home Medications Medication Instructions Recorded Confirmed Type levothyroxine 25 mcg tablet 25 mcg PO DAILYBB 08/19/19 01/19/24 History verapamil 180 mg tablet,extended 180 mg PO QAM 08/19/19 01/19/24 History release atorvastatin 20 mg tablet 20 mg PO HS 04/15/21 01/19/24 History metformin 500 mg tablet 1,000 mg PO BID 04/15/21 01/19/24 History oxybutynin chloride 10 mg 10 mg PO QAM 01/19/24 01/19/24 History tablet,extended release 24 hr Past Med/Surg History Medical History CVA (cerebral vascular accident) 2012 Hypothyroid Hypercholesteremia Diabetes Kidney disease Bladder cancer Surgical History No significant past surgical history Family History Mother , age 84 of uncertain cause Hypertension Father , age 64 with tuberculosis Tuberculosis Social History Smoking Status: Former smoker Tobacco Type: Cigarettes Hx Alcohol Use: Yes Alcohol type: wine Alcohol Intake Frequency Comment: 1 glass with dinner 4 times per week Hx Substance Use: No Preferred Language: Malagasy Communication Ability: Effective 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 Beliefs That Will Affect Care: None Current Living Situation: Spouse Current Living Situation Comment: Lives with at [facility] current occupational status: 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 Feels Safe at Home: Yes Assistive Devices: None Review of Systems Review of Systems: As per above Physical Exam Physical Exam: Constitutional: well-appearing, no acute distress HEENT: NCAT, no conjunctival injection CV: regular rhythm, no murmur appreciated, extremities well-perfused, no LE edema Resp: CTABL, no wheezes/rales/rhonchi appreciated, no increased work of breathing GI: soft, nondistended, nontender, BS normoactive, +CVA tenderness B/L MSK: no gross deformities appreciated Skin: warm, dry, no rash appreciated Neuro: alert, oriented, no focal neurologic deficit appreciated Results & Data Results & Data Vital Signs (Past 12 Hours) Vital Signs Temp Pulse Pulse Resp BP BP Pulse Ox 01/19/24 19:47 99 H 23 167/90 H 94 01/19/24 18:51 102 H 22 180/93 H 95 01/19/24 18:30 107 H 01/19/24 18:27 180/93 H 01/19/24 17:11 93 01/19/24 17:11 36.6 C 120 H 18 167/102 H 93 O2 Del Method 01/19/24 19:47 Room Air 01/19/24 18:51 01/19/24 18:30 01/19/24 18:27 01/19/24 17:11 01/19/24 17:11 Room Air Laboratory Results Laboratory Results WBC 17.23 K/ul (4.8-10.8) H 01/19/24 18:39 RBC 4.75 M/uL (4.70-6.10) 01/19/24 18:39 Hgb 14.6 g/dl (14.0-18.0) 01/19/24 18:39 Hct 42.8 % (42.0-52.0) 01/19/24 18:39 MCV 90.1 fL (80.0-100.0) 01/19/24 18:39 MCH 30.7 pg (25.0-34.0) 01/19/24 18:39 MCHC 34.1 g/dL (32.0-36.0) 01/19/24 18:39 RDW Std Deviation 39.4 fL (36.4-46.3) 01/19/24 18:39 RDW Coeff of Parvin 12.0 % (11.5-14.5) 01/19/24 18:39 Plt Count 148 K/uL (130-400) 01/19/24 18:39 MPV 9.3 fL (9.4-12.4) L 01/19/24 18:39 Immature Gran % (Auto) 0.6 % 01/19/24 18:39 Neut % (Auto) 86.0 % 01/19/24 18:39 Lymph % (Auto) 5.7 % 01/19/24 18:39 [place] % (Auto) 7.4 % 01/19/24 18:39 Eos % (Auto) 0.0 % 01/19/24 18:39 Baso % (Auto) 0.3 % 01/19/24 18:39 Neut # (Auto) 14.79 K/uL (1.40-6.50) H 01/19/24 18:39 Lymph # (Auto) 0.99 K/uL (1.20-3.40) L 01/19/24 18:39 [place] # (Auto) 1.28 K/uL (0.11-0.59) H 01/19/24 18:39 Eos # (Auto) 0.00 K/uL (0.00-0.50) 01/19/24 18:39 Baso # (Auto) 0.06 K/uL (0.00-0.20) 01/19/24 18:39 Immature Gran # (Auto) 0.11 K/uL (0.01-0.20) 01/19/24 18:39 Sodium 134 mmol/L (136-145) L 01/19/24 18:39 Potassium 3.9 mmol/L (3.5-5.1) 01/19/24 18:39 Chloride 102 mmol/L (98-107) 01/19/24 18:39 Carbon Dioxide 21 mmol/L (21-32) 01/19/24 18:39 Anion Gap 11 (3-11) 01/19/24 18:39 BUN 15 mg/dl (6-23) 01/19/24 18:39 Creatinine 1.01 mg/dl (0.6-1.4) 01/19/24 18:39 Est Cr Clr Drug Dosing 50.9 ml/min 01/19/24 18:39 Est GFR ( Amer) 79.9 ml/min 01/19/24 18:39 Est GFR (Non-Af Amer) 68.9 ml/min 01/19/24 18:39 BUN/Creatinine Ratio 14.9 (10-20) 01/19/24 18:39 Glucose 193 mg/dl (70-99(Fasting)) H 01/19/24 18:39 POC Glucose 143 mg/dl (70-99) H 01/19/24 22:13 Lactate 1.7 mmol/L (0.4-2.0) 01/19/24 18:39 Calcium 9.0 mg/dl (8.6-10.3) 01/19/24 18:39 Total Bilirubin 2.3 mg/dl (0.2-1.0) H 01/19/24 18:39 AST 35 U/L (13-39) 01/19/24 18:39 ALT 51 U/L (7-52) 01/19/24 18:39 Alkaline Phosphatase 59 U/L (34-104) 01/19/24 18:39 Total Protein 7.7 gm/dl (6.0-8.3) 01/19/24 18:39 Albumin 4.4 gm/dl (3.4-5.0) 01/19/24 18:39 Globulin 3.3 gm/dl (2.5-4.0) 01/19/24 18:39 Albumin/Globulin Ratio 1.3 (0.9-2) 01/19/24 18:39 Procalcitonin 0.29 ng/ml (0-0.5) 01/19/24 18:39 Urine Color Yellow 01/19/24 19:20 Urine Appearance Clear (Clear) 01/19/24 19:20 Urine pH 7.0 (4.5-7.5) 01/19/24 19:20 Ur Specific [place] 1.011 (1.000-1.030) 01/19/24 19:20 Urine Protein 2+ (Negative) H 01/19/24 19:20 Urine Glucose (UA) 1+ (Negative) H 01/19/24 19:20 Urine Ketones Trace (Negative) H 01/19/24 19:20 Urine Blood 2+ (Negative) H 01/19/24 19:20 Urine Nitrite Positive (Negative) A 01/19/24 19:20 Urine Bilirubin Negative (Negative) 01/19/24 19:20 Urine Urobilinogen Negative (Negative) 01/19/24 19:20 Ur Leukocyte Esterase Trace (Negative) H 01/19/24 19:20 Urine WBC (Auto) >30 /hpf (0-5) H 01/19/24 19:20 Urine RBC (Auto) 0-4 /hpf (0-4) 01/19/24 19:20 U Hyaline Cast (Auto) 1-5 /lpf (0-5) 01/19/24 19:20 U Epithel Cells (Auto) 5-10 /lpf (0-5) H 01/19/24 19:20 Urine Bacteria (Auto) 4+ (Negative) H 01/19/24 19:20 Adenovirus (PCR) Not Detected (NotDetected) 01/19/24 19:20 B. pertussis DNA (PCR) Not Detected (NotDetected) 01/19/24 19:20 B.parapertussis DNA PCR Not Detected (NotDetected) 01/19/24 19:20 C. pneumoniae DNA (PCR) Not Detected (NotDetected) 01/19/24 19:20 Coronavirus OC43 (PCR) Not Detected (NotDetected) 01/19/24 19:20 Coronavirus HKU1 (PCR) Not Detected (NotDetected) 01/19/24 19:20 Coronavirus 229E (PCR) Not Detected (NotDetected) 01/19/24 19:20 SARS-CoV-2 (PCR) Not Detected (NotDetected) 01/19/24 19:20 Coronavirus NL63 (PCR) Not Detected (NotDetected) 01/19/24 19:20 Human Metapneumovir PCR Not Detected (NotDetected) 01/19/24 19:20 Influenza Type A (PCR) Not Detected (NotDetected) 01/19/24 19:20 Influenza Type B (PCR) Not Detected (NotDetected) 01/19/24 19:20 M. pneumoniae (PCR) Not Detected (NotDetected) 01/19/24 19:20 Parainfluenza 1 (PCR) Not Detected (NotDetected) 01/19/24 19:20 Parainfluenza 2 (PCR) Not Detected (NotDetected) 01/19/24 19:20 Parainfluenza 3 (PCR) Not Detected (NotDetected) 01/19/24 19:20 Parainfluenza 4 (PCR) Not Detected (NotDetected) 01/19/24 19:20 RSV (PCR) Not Detected (NotDetected) 01/19/24 19:20 Entero/Rhino (PCR) Not Detected (NotDetected) 01/19/24 19:20 Impressions Abdomen/Pelvis CT 01/19/24 17:38 Exam(s): CT ABDOMEN + PELVIS With Contrast IV Amt: 94 ml optiray 320 EXAM: CT Abdomen and Pelvis With Intravenous Contrast CLINICAL HISTORY: Reason for exam: low back pain, fevers, urinary symptoms. TECHNIQUE: Axial computed tomography images of the abdomen and pelvis with intravenous contrast. CTDI is 15.97 mGy and DLP is 834.86 mGy-cm. Automated exposure control was utilized for the study. A dose lowering technique was utilized adhering to the principles of ALARA. CONTRAST: Patient received 94 ml optiray 320 of IV contrast COMPARISON: 08/30/18 FINDINGS: Lung bases: Unremarkable. No mass. No consolidation. ABDOMEN: Liver: Hepatomegaly and steatosis. Benign hepatic cysts measuring up to 22 mm. Gallbladder and bile ducts: Unremarkable. No calcified stones. No ductal dilation. Pancreas: Unremarkable. No mass. No ductal dilation. Spleen: Unremarkable. No splenomegaly. Adrenals: Unremarkable. No mass. Kidneys and ureters: Symmetric renal enhancement. No hydronephrosis per. Stomach and bowel: Unremarkable. No mucosal thickening. No bowel obstruction. PELVIS: Appendix: Appendix not identified. Bladder: Borderline bladder wall thickening in the setting of incomplete distention. Reproductive: Prostatomegaly. ABDOMEN and PELVIS: Intraperitoneal space: Stable chronic nonspecific fat stranding in the jejunal mesentery. No free fluid or free air. Bones/joints: Age-related degenerative changes of the spine. No acute fracture or dislocation. Soft tissues: Unremarkable. Vasculature: Atherosclerosis. No aortic aneurysm. Lymph nodes: No lymphadenopathy. IMPRESSION: 1. Borderline bladder wall thickening, cystitis versus distention. Correlate with urinalysis. 2. Otherwise, no acute findings. Electronically signed by: Marine Parra M.D. 01/19/24 20:04 PM Chest X-Ray 01/19/24 17:38 XR chest 1V portable HISTORY: cough, fever COMPARISON: Chest 04/15/2021. FINDINGS: No pneumothorax. No pleural effusions. The cardiac silhouette remains mildly enlarged. No new focal lung consolidations to suggest pneumonia. No evidence for pulmonary edema. Degenerative changes within the shoulders. No acute fractures identified. IMPRESSION: No significant change compared to the prior study. No acute process. ACT 112: Negative or not required by law. Electronically signed by: Mauro Colbert M.D. 01/19/2024 6:40 PM Supervising Physician Co-Signing Physician Notes Patient seen and examined, chart reviewed, case discussed with Dr. Garza and I agree with the assessment and plan as above. In brief, patient is an 83yo male presenting with sepsis secondary to UTI, diffuse weakness and difficulty with ambulation. Patient febrile, tachycardic, leukocytosis - UA suggestive of infection. No pyelonephritis noted on imaging but patient does endorse some flank pain. No stones. In the ER he is afebrile, HD stable. Mildly tachycardic 96-103 in the ER Skin - intact, no rash HEENT - MMM, Neck supple Heart - +S1/S2, regular, no m/r/g Lungs - CTA Abd - +BS, soft, mild suprapubic tenderness, no CVA tenderness, no RUQ pain Ext - warm, well perfused Patient appears clincally well Labs and images reviewed. WBC=17.23 T-bili=2.3 Assessment/Plan Sepsis secondary to UTI - patient appears well, non-toxic -Admit to medical with telemetry -Follow cultures -Continue IVF and antibiotics - Ceftriaxone -PT/OT evaluation appreciated to address weakness -Repeat LFTs in the AM - suspect isolated elevation in Tbili from sepsis vs [place]. If worsening would obtain RUQUS -Remainder of plan as above Resident Activity Tracking Resident Involvement: Resident Care Provided Care Provided: Adult [facility]
[2024-01-19] MEDS: SODIUM CHLORIDE 0.9% 1,000 ML IV SCH (20:41)
[2024-01-19] MEDS ORDERED: GLUCOSE 10 TAB/TUBE PO PRN (21:11)
[2024-01-19] MEDS ORDERED: GLUCOSE 40% GEL 15 GM TUBE PO PRN (21:11)
[2024-01-19] MEDS ORDERED: DEXTROSE 50% 50 ML SYRINGE IV PRN (21:11)
[2024-01-19] MEDS ORDERED: CARBOHYDRATES FOR HYPOGLYCEMIA PO PRN (21:11)
[2024-01-19] MEDS ORDERED: GLUCAGON FOR INJ 1 MG VIAL SQ PRN (21:11)
--- NOTE | 2024-01-20 04:03 | Billing Data ---
Date of Service January 19, 2024 Coding Level of Care Code 67322 INT INP/OBS CARE
[2024-01-20 05:09] LABS: Basophils # (auto) 0.06 K/uL (0.00-0.20); Basophils % (auto) 0.4 %; Eosinophils # (auto) 0.01 K/uL (0.00-0.50); Eosinophils % (auto) 0.1 %; Hematocrit (blood only) 40.1 % (42.0-52.0); Hemoglobin 13.8 g/dl (14.0-18.0); Immature Granulocytes # (auto) 0.09 K/uL (0.01-0.20); Immature Granulocytes % (auto) 0.6 %; Lymphocytes % (auto) 10.6 %; Mean Corpuscular Hemoglobin 31.2 pg (25.0-34.0); Mean Corpuscular Hgb Conc 34.4 g/dL (32.0-36.0); Mean Corpuscular Volume 90.7 fL (80.0-100.0); Mean Platelet Volume 9.4 fL (9.4-12.4); Monocytes # (auto) 1.22 K/uL (0.11-0.59); Monocytes % (auto) 8.1 %; Neutrophils # (auto) 12.09 K/uL (1.40-6.50); Neutrophils % (auto) 80.2 %; Platelet Count 132 K/uL (130-400); RDW Coefficient of Variation 12.1 % (11.5-14.5); RDW Standard Deviation 40.3 fL (36.4-46.3); Red Blood Count 4.42 M/uL (4.70-6.10); White Blood Count 15.07 K/ul (4.8-10.8)
[2024-01-20 05:16] LABS: Albumin Globulin Ratio 1.4 (0.9-2); Albumin Level 3.9 gm/dl (3.4-5.0); BUN Creatinine Ratio 15.1 (10-20); Bilirubin,Total 1.6 mg/dl (0.2-1.0); Calcium 8.4 mg/dl (8.6-10.3); Creatinine Clr Calc Pharmacy 59.8 ml/min; Est GFR (African American) 93.6 ml/min; Est GFR (Non-African American) 80.8 ml/min; Globulin 2.7 gm/dl (2.5-4.0); Magnesium 1.7 mg/dl (1.7-2.4); Potassium 3.6 mmol/L (3.5-5.1); Total Protein 6.6 gm/dl (6.0-8.3)
[2024-01-20] MEDS: LEVOTHYROXINE SODIUM 25 MCG TABLET PO SCH (06:23)
[2024-01-20 07:25] LABS: Estimated Average Glucose 206 mg/dl; Hemoglobin A1C 8.8 % (4.5-5.6)
--- NOTE | 2024-01-20 07:45 | Ultrasound Report ---
US gallbladder CLINICAL HISTORY: Fever. Elevated bilirubin. COMPARISON STUDY: Abdominal ultrasound July 02, 2020. CT of the abdomen and pelvis January 19, 2024. FINDINGS: Hepatic echogenicity is mildly increased. There is a 2.9 cm hepatic cyst. No biliary ductal dilatation is present. The gallbladder is normal. There are no gallstones. Pancreas is unremarkable by sonography. There is no right hydronephrosis. IMPRESSION: 1. No gallstones or biliary ductal dilatation. 2. Hepatic steatosis. ACT 112: Negative or not required by law. Electronically signed by: Jaden Acevedo M.D. 01/20/2024 7:43 AM
[2024-01-20] MEDS: VERAPAMIL HCL 180 MG TABCR PO SCH (08:52)
[2024-01-20] MEDS: OXYBUTYNIN CHLORIDE XL 5 MG TABCR PO SCH (08:52)
[2024-01-20] MEDS: ENOXAPARIN INJ 40 MG/0.4 ML SYR SQ SCH (08:52)
[2024-01-20] MEDS: INSULIN ASPART PER UNIT CHARGE SC SCH (09:36)
--- NOTE | 2024-01-20 09:46 | Hospitalist Progress Note ---
Date of Service January 20, 2024 Assessment & Plan (1) Sepsis due to urinary tract infection: Plan: 83 M with history of T2DM, hypothyroidism, hypertension, hyperlipidemia, who presented to the emergency room with dysuria, urinary frequency, weakness. Now admitted to the hospital for management of sepsis presumed secondary to UTI. UTI Sepsis - SIRS positive with leukocytosis=17 and tachycardia, likely source urine - lactate= 1.7 - fluid resuscitation s/p 2L IVF, continue maintenance fluids @ 125ml/hr - blood and urine cultures pending * IV ceftriaxone 2 g every 24 hours Elevated total bilirubin -Total bilirubin on admission 2.3. No evidence of transaminitis. No prior elevations. -CT A/P negative for acute findings, US gallbladder negative for gallbladder wall thickening, gallstones. -Repeat total bilirubin 1.6. * Continue to trend Hypertension -Chronic. Managed at home on verapamil 100 mg every morning. * Continue home verapamil Hypothyroidism * Continue home levothyroxine Type 2 Diabetes -Chronic. Managed on metformin 1000 mg twice daily. -Last Hgb A1c 7.0% (06/27/2022). Hgb A1c on admission 8.8%. * Home metformin held. * SSI insulin, ACHS glucose checks Hyperlipidemia * Continue home atorvastatin Code: Full code Dispo: Med-Surg telemetry FEN/GI: NS @maintenance rate.Carb consistent DVT Prophylaxis: Lovenox 40 mg q24h PT/OT: No Consults: None Case Management: No (2) Total bilirubin, elevated: (3) Hypertension: (4) Hypothyroid: (5) Hypercholesteremia: (6) Diabetes: Admission and Anticipated Discharge Date Admission Date: January 19, 2024 Supervising Physician Co-Signing Physician Notes I personally examined the patient and verified all walker points of history and exam, discussed case, and agree with decision making with Dr Gabriel Feeling better. Feeling more energy. Able to walk around. Still has urinary frequency, sounds like probably some urgency, but otherwise nothing that sounds like urinary retention or hesitancy. No rectal pressure. Vitals noted, in general he is awake and alert pleasant mildly fatigued no acute distress. HEENT normocephalic atraumatic mucous membranes moist. Breathing unlabored no accessory muscle use good effort. Skin shows no rashes no pallor or icterus. Neuro without focal deficits. UTI with sepsis present on admissionfortunately improving nicely. Urine culture showing gram-negative rodsdiscussed with patient that we expect ID and sensitivities to be back in the next 24 hours or so, which will allow for reliable transition to p.o. antibiotics. Sepsis seems to be resolving already. Nothing in symptoms or imaging fitting with upper tract infection such as Pyelo, or concomitant prostatitis. Obviously continue to follow. It sounds like the "why now" for his infection may have been diarrhea inflicted from a supplement he was taking for BPH. Weaknessfortunately already improving. Was able to walk to and from the bathroom under his own power slow and steady and to get in and out of bed on his own as well. Fortunately will not need to go to rehab. Encouraged ongoing ambulation to prevent further weakness. Questionable BPHit sounds like he probably has 2 times nocturia is a baseline symptom, it obviously is a little bit difficult to discern the rest of his BPH symptoms when he is here acutely infected. Will have him catalog regular more routine symptoms once he is better the from this and discussed further with his PCP. Prior strokenot on antiplatelet therapy currently, will need to discuss. Obviously no urgency to this given that his cerebrovascular disease has been stable for years. DVT prophylaxisLovenox Elevated bilirubinimproving, nonspecific. Certainly no concerning findings. extensive discussions with patient, also updated daughter and granddaughter at the bedside. Answered all questions to the best my ability and to their satisfaction. Subjective Patient asleep in bed on arrival. Easily awakened by voice. He reports his urinary frequency, abdominal pain, and dysuria have all improved. He reports ambulating to and from the bathroom without assistance this morning he would like to go home today. Review of Systems Review of Systems: All systems reviewed & are unremarkable except as noted in HPI & below Physical Exam Physical Exam: General: no acute distress, speaking in full sentences Resp: good inspiratory effort, no labored breathing HEENT: conjunctivae appear clear, no audible congestion, no swelling noted face or lips Skin: skin appears dry, normal coloration, no rash visible on exposed skin areas Neuro: alert and oriented x3, no focal deficits appreciated Psych: euthymic affect, pleasant and interactive, logical thought process Results & Data Results & Data Vital Signs (Past 12 Hours) Vital Signs Temp Pulse Pulse Resp BP BP Pulse Ox 01/20/24 07:29 88 01/20/24 07:00 97 H 18 190/98 H 97 01/20/24 07:00 01/20/24 06:00 87 17 190/98 H 95 01/20/24 02:30 99 H 24 94 01/20/24 02:00 103 H 25 H 94 01/20/24 01:30 102 H 24 95 01/20/24 00:30 98 H 21 97 01/20/24 00:00 103 H 21 94 01/19/24 23:30 96 H 19 97 01/19/24 23:00 93 H 24 96 01/19/24 22:39 36.8 C 91 H 22 167/87 H 98 01/19/24 22:25 89 01/19/24 22:00 93 H 24 163/83 H 93 Pulse Ox O2 Del Method O2 Del Method 01/20/24 07:29 01/20/24 07:00 Room Air 01/20/24 07:00 96 Room Air 01/20/24 06:00 Room Air 01/20/24 02:30 Room Air 01/20/24 02:00 Room Air 01/20/24 01:30 Room Air 01/20/24 00:30 Room Air 01/20/24 00:00 Room Air 01/19/24 23:30 Room Air 01/19/24 23:00 Room Air 01/19/24 22:39 Room Air 01/19/24 22:25 01/19/24 22:00 Room Air Resident Activity Tracking Resident Involvement: Resident Care Provided Care Provided: Adult Hospital Medicine
--- NOTE | 2024-01-20 13:29 | Electrocardiogram Report ---
Test Reason : Blood Pressure : / mmHG Vent. Rate : 108 BPM Atrial Rate : 108 BPM P-R Int : 196 ms QRS Dur : 092 ms QT Int : 330 ms P-R-T Axes : 055 170 002 degrees QTc Int : 442 ms Sinus tachycardia Right axis deviation Incomplete right bundle branch block Abnormal ECG When compared with ECG of 15-APR-2021 11:11, Vent. rate has increased BY 36 BPM QRS axis Shifted right T wave inversion now evident in Inferior leads T wave inversion less evident in Lateral leads Confirmed by Juanjo Newton ([id number]) on 01/20/2024 1:29:31 PM Referred By: Delbert Guzmán Confirmed By:Juanjo Newton
--- NOTE | 2024-01-20 14:29 | Billing Data ---
Date of Service January 20, 2024 Coding Level of Care Code 03332 SUB INP/OBS CARE MIN
--- NOTE | 2024-01-20 14:29 | Billing Data ---
Date of Service January 20, 2024 Coding Level of Care Code 98040 SUB INP/OBS CARE MIN
--- OUTSIDE RECORDS SUMMARY | 2024-01-20 15:49 | External Medical Summary | Continuity of Care Document ---
Author Name Unknown Organization [address] Address [address] [place], [place] [id number] Care Team Providers Care Analytics Lead Name Role Phone Estelle Guzmán Primary Care Physician [phone] [id number] Date(s): 11/16/23 - 11/16/[address] Gurdeep [address], [address] [place] [address] [phone] Encounter Diagnosis Body mass index [BMI] 26.0-26.9, adult(Discharge Diagnosis) - 11/16/23 Low back pain(Discharge Diagnosis) - 11/16/23 Spinal stenosis of lumbar region(Discharge Diagnosis) - 11/16/23 Overactive bladder(Discharge Diagnosis) - 11/16/23 Discharge Disposition: Home or Self Care Attending Physician: MD Christianson Jesse Referring Physician: MD Christianson Jesse Allergies, Adverse Reactions, Alerts No Known Allergies Assessment and Plan Extracted from: Title:Office Visit Note Author:DO Rich Me hwish Date:11/16/23 1.Low back pain 2.Spinal stenosis of lumbar region Suspect his symptomsare potentially a flare of his known spinal stenosis versusexacerbation/paraspinalhypertonicity and painfrom sudden onset/increase in activity. I discussed gradual ramp-up of activity and advised him against doing 500sstairsat the onset of the challenge, but to gradually increase over time. 3.Overactive bladder As he is already scheduled for a follow-up in approximately 2-3 weeks, I recommend he follow-up with the urologist that initially prescribed the Myrbetriq and see if they would like to increase the dose or change therapy. He expresses understanding of this. Time: 32_mins 2_ - pre-visit chart review 26_ - visit, inclusive of history, exam, and discussion of assessment/plan _4 - post-visit documentation/orders/coordination of care Immunizations Given and Recorded Vaccine Date Status Refusal Reason pneumococcal 23-valent vaccine 1 10/14/22 Given influenza virus vaccine, inactivated 08/09/22 John rded influenza virus vaccine, inactivated 08/19/19 Give n influenza virus vaccine, inactivated 08/16/18 Give n SARS-CoV-2 mRNA-1273 (6y+ bivalent) 08/09/22 Recor ded SARS-CoV-2 mRNA-1273 (6y+ bivalent) 03/17/22 Recor ded SARS-CoV-2 (COVID-19) mRNA-1273 vaccine 2 09/10/21 Recorded SARS-CoV-2 (COVID-19) mRNA-1273 vaccine 3 01/07/21 Recorded SARS-CoV-2 (COVID-19) mRNA-1273 vaccine 4 12/10/20 Recorded pneumococcal 13-valent vaccine 08/19/19 Given tetanus/diphtheria/pertuss, acel (Tdap) 5 05/05/17 Recorded diphtheria/pertussis, whole cell/tetanus 6 05/05/17 Recorded 1Result Comment: david abebe cma 2Result Comment: 2022-10-14: Historical information-source unspecified 3Result Comment: 2021-09-06: Historical information-source unspecified 4Result Comment: 2021-09-06: Historical information-source unspecified 5Result Comment: 2019-08-19: Historical information-source unspecified 6Result Comment: 2023-05-01: Historical information-source unspecified Medications atorvastatin 20 mg oral tablet Start: 02/28/23 11:17:00 EDT, 1 tab, PO, Daily, Disp# 90 tab, Refills: 3, Pharmacy: [email or web address] #[id number] Start Date: 02/28/23 Stop Date: 02/23/24 Status: Ordered levothyroxine 25 mcg (0.025 mg) oral tablet Start: 11/28/22 17:10:00 EST, See Instructions, Disp# 60 tab, Refills: 0, take 1 tablet by mouth every morning ON AN EMPTY STOMACH, Pharmacy: [facility] #[id number] Start Date: 11/28/22 Status: Ordered metFORMIN 500 mg oral tablet Start: 06/14/23 9:43:00 EDT, 2 tab, PO, bid, Disp# 360 tab, Refills: 3, Pharmacy: [facility] #[id number] Start Date: 06/14/23 Stop Date: 06/08/24 Status: Ordered verapamil 180 mg/12 hours oral tablet, extended release Start: 09/19/22 13:30:00 EST, See Instructions, Disp# 90 tab, Refills: 3, take 1 tablet by mouth every morning, Pharmacy: [facility] #[id number] Start Date: 09/19/22 Status: Ordered Problem List Condition Confirmation Course Effective Dates Status H ealth Status Informant History of bladder cancer Confirmed Active History of hepatitis A Confirmed Active Hypertension Confirmed Active Hypothyroid Confirmed Active Elevated liver function tests Confirmed Active Mixed hyperlipidemia Confirmed Active Spinal stenosis of lumbar region Confirmed Active Sprain of right ankle Confirmed Active 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 Diagnosis Diagnosis Type Effective Dates Health Status Clinical Service Informant Spinal stenosis of lumbar region Discharge Diagnosis 11/16/23 Low back pain Discharge Diagnosis 11/16/23 Body mass index [BMI] 26.0-26.9, adult Discharge Diagnosis 11/16/23 Non-Specified Overactive bladder Discharge Diagnosis 11/16/23 Procedures Procedure Date Related Diagnosis Body Site Status Colonoscopy 1 12/26/22 Completed Punch biopsy 08/12/20 Completed Ankle X-ray 2 02/24/18 Completed X-ray of Right tibia/fibula 3 03/05/17 Completed Ultrasound--abdomen 4 04/10/15 Com pleted Right Renal Arteriogram with out Intervention 07/26/13 Completed Colonoscopy 5 11/08/12 Completed Bladder Cancer Removal 2008 Co mpleted Achilles tendon repair Co mpleted Appendectomy Completed Biopsy-Bladder tumor 6 Co mpleted 1COLO to cecum hemorrhoids, no repeat needed for scrrening given age 82 2Soft tissue swelling and joint effusion. No right ankle fracture is identified. 3No osseous abnormality of the right tibia or fibula. Possible nonspecific soft tissue swelling overlying the anterior aspect of the proximal to mid shaft of the right tibia shown on lateral projection 4Left hepatic lobe and left renal cysts. Otherwise negative. 5WNL 10 years 65 Vital Signs Most recent to oldest [Reference Range]: 1 Height 168 cm (11/16/23 3:58 PM) Patient Weight 75.4 kg (11/16/23 3:58 PM) Body Mass Index 26.71 kg/m2 (11/16/23 3:58 PM) Temperature [36.5-37.9 DegC] 36.6 DegC (11/16/23 3:58 PM) Heart Rate 65 bpm (11/16/23 3:58 PM) Respiratory Rate 16 br/min (11/16/23 3:58 PM) Blood Pressure 126/64mmHg (11/16/23 3:58 PM) Cuff Pulse Pressure 62 mmHg (11/16/23 3:58 PM) Social History Social History Type Response Tobacco Former smoker, Cigar ettes 1 Smoking Status Never smoked cigaret chichi Sex Male 1Quit 30 to 40 years ago. Smoked approx 1/2 ppd for 15 years. [facility] Outpt Note * DO Rich Mehwish: PERFORM Event Display: [facility] Outpt Note Authored Date: [id number] Chief Complaint needs referal for Physical therapy- need for [employer] appt1.. History of Present Illness Vernon is an 83-year-old malewho presents to discuss back pain. Also would like to discuss recommendation from a urologist that he saw. He notes that his low back pain started about approximately 1 week ago. He does report a history oflumbar spinal stenosisthat was bothersome for hermore than 10 years ago. He notes that hiscurrent symptoms began approximately 1 week ago when he startedto try toa new challenge/training. He went up and down stairsabout 500 stepson the first day of this challenge. He notes that he started to feel pain and soreness after that. He then did this again the following dayas some of his pain had reduced to about 50% of what it was. He notes that after the second day he haddifficulty with standingand walking because of discomfort. He notes that he has previously goneto physical therapyand his stenosis was improved with strengthening the muscle and the bones around it. He has noticed some improvement in his discomfort as he has not continued the stair challenge at this time. He notes that he has been going to the pool and swimming and stretching and he notes that that has been helpful. Today he went out for a walk, approximately 2 mileswith onlysome discomfort mostly around his hips. He notes thathe has had a history of bladder cancerand had surgery in 2010. He then followed up with a jf Bedoyafor urinary frequency that he was having. He notes that sometimes he will havenocturia, waking up 23 times a night, but sometimeshe will wake up at all. He also notes during the day he has urinary frequency. Voiding every 1-2 hours. He notes that henever followed up with that urologist after he was started on Myrbetriq. He is not sure if it helped him or not. He does have a follow-up appointment scheduled in December. Physical Exam Vitals & Measurements T:36.6C HR:65(Monitored) RR:16 BP:126/64 SpO2:98% HT:168cm WT:75.400kg(Dosing) WT:75.4kg BMI:26.71 GENERAL APPEARANCE: The patient is alert, oriented and in no acute distress. HEENT: Head is normocephalic/atraumatic. LUNGS: Respirations even and unlabored. EXTREMITIES: No cyanosis, clubbing or edema. NEUROLOGICAL: Grossly non-focal exam. SKIN: Warm and dry without any rash. MUSCULOSKELETAL: _ Low back exam: Appearance: No deformities noted, patient is ambulating with normal gait. He does have someiron/Magnant patches on his back during examination Palpation: Pain with palpation over lumbar paraspinal musculatures. No midline spinous process tenderness. There is no tenderness to palpation of the greater trochanters bilaterally. Active range of motion:Active flexion to approximately 70 degreeswithout discomfort. Pain with extension. Normal rotation and bilateral sidebending. Hip ROM: Decreased internal and external rotation with the hips flexed to 90 degreeswithout pain. Strength: 5/5 withplantarflexion/dorsiflexion,foot inversion/eversion,knee flexion/extension,and hip flexion/extension and hip abduction/adduction Sensation: Intact overL2, L3, L4, L5, and S1 dermatomes Special test: negative seated and supinestraight leg raise, negative BLANCHE, negative FADIR Assessment/Plan 1.Low back pain 2.Spinal stenosis of lumbar region Suspect his symptomsare potentially a flare of his known spinal stenosis versusexacerbation/paraspinalhypertonicity and painfrom sudden onset/increase in activity. I discussed gradual ramp-up of activity and advised him against doing 500sstairsat the onset of the challenge, but to gradually increase over time. 3.Overactive bladder As he is already scheduled for a follow-up in approximately 2-3 weeks, I recommend he follow-up with the urologist that initially prescribed the Myrbetriq and see if they would like to increase the dose or change therapy. He expresses understanding of this. Time: 32_mins 2_ - pre-visit chart review 26_ - visit, inclusive of history, exam, and discussion of assessment/plan _4 - post-visit documentation/orders/coordination of care Problem List/Past Medical History Ongoing Elevated liver function tests History of bladder cancer History of hepatitis A Hypertension Hypothyroid Mixed hyperlipidemia Spinal stenosis of lumbar region Sprain of right ankle Type 2 diabetes mellitus with albuminuria Historical Acute gout Amnesia Chest wall contusion Diarrhea Frequent urination Ganglion cyst of left foot Headache Hematuria Hives Hypertensive disorder Left foot pain Localized swelling of both lower legs Medicare annual wellness visit, subsequent Rash of neck Renal artery stenosis Right ankle pain Procedure/Surgical History Colonoscopy (12/26/2022)Punch biopsy (08/12/2020)Ankle X-ray (02/24/2018)X-ray of Righttibia/fibula (03/05/2017)Ultrasound--abdomen (04/10/2015)Right Renal Arteriogram without Intervention (07/26/2013)Colonoscopy (11/08/2012)Bladder Cancer Removal (2008)Achilles tendon repairAppendectomyBiopsy-Bladder tumor Medications atorvastatin(atorvastatin 20 mg oral tablet), 20 mg= 1 tab, PO, Daily, 3 refills levothyroxine(levothyroxine 25 mcg (0.025 mg) oral tablet), See Instructions metFORMIN(metFORMIN 500 mg oral tablet), 1000 mg= 2 tab, PO, bid, 3 refills verapamil(verapamil 180 mg/12 hours oral tablet, extended release), See Instructions Allergies NKA Social History Smoking Status Never smoked cigarettes Alcohol - Denies Alcohol Use Exercise - Regular exercise Times per week:3-4 times/week Exercise type:Walking, Swimming, gym Home/Environment Lives with:Spouse Living situation:Home/Independent Tobacco - Denies Tobacco Use Use:Former smoker Type:Cigarettes - Comments: Quit 30 to 40 years ago. Smoked approx 1/2 ppd for 15 years. Family History Hypertension..: Mother. Tuberculosis: Father. Health Status Family Member(s) Family Member(s) Relationship: Mother, Age: Unknown Relationship: Father, Age: Unknown, Cause: Lung Disease Immunizations Vaccine Date Status pneumococcal 23-valent vaccine 10/14/2022 Given Comments : david abebe cma influenza virus vaccine, inactivated 08/09/2022 Recorded SARS-CoV-2 mRNA-1273 (6y+ bivalent) 08/09/2022 Recorded SARS-CoV-2 mRNA-1273 (6y+ bivalent) 03/17/2022 Recorded SARS-CoV-2 (COVID-19) mRNA-1273 vaccine 09/10/2021 Recorded Comments : 2022-10-14: Historical information-source unspecified SARS-CoV-2 (COVID-19) mRNA-1273 vaccine 01/07/2021 Recorded Comments : 2021-09-06: Historical information-source unspecified SARS-CoV-2 (COVID-19) mRNA-1273 vaccine 12/10/2020 Recorded Comments : 2021-09-06: Historical information-source unspecified influenza virus vaccine, inactivated 08/19/2019 Given pneumococcal 13-valent vaccine 08/19/2019 Given influenza virus vaccine, inactivated 08/16/2018 Given tetanus/diphtheria/pertuss, acel (Tdap) 05/05/2017 Recorded Comments : 2019-08-19: Historical information-source unspecified diphtheria/pertussis, whole cell/tetanus 05/05/2017 Recorded Comments : 2023-05-01: Historical information-source unspecified Recommendations Health Maintenance Pending(in the next year) OverDue Adult Influenza Vaccine due05/05/23and every 1year Medicare Annual Wellness Visit due10/14/23and every 1year Due Adult COVID-19 Vaccination due11/16/23Unknown Frequency Adult Social Determinants of Health Screening due11/16/23Unknown Frequency Falls Plan of Care due11/16/23Unknown Frequency Shingles Vaccine due11/16/23One-time only Due In Future Diabetic Eye Exam not due until03/06/24and every 366day Diabetes Management A1c not due until05/01/24and every 366day Satisfied(in the past 1 year) Satisfied Body Mass Index on11/16/23.Satisfied by BRAXTON Conley Angela Diabetes Management A1c on05/01/23.Satisfied by Contributor_system, [email or web address] Electronic Signature on File CC: Estelle Guzmán MD [address] [id number] Electronically Reviewed/Signed by: Jacklyn Rich DO Author Signature Dt/Tm:11/16/2023 08:08 PM Division of Sports Medicine MM Patient Care team information Care Team Personnel Name: TRIPP García Lynn Position: Physician Field [employer] W[employer] Exempt - Vasc Surg Member Role: Lifetime Relationship Address: Address: [address] [place] [address], [place] [address] [place] Name: MD Guzmán Ravishankar E Position: Physician Member Role: Primary Care Provider Address: Address: [address] [place] [address], [place] [address] Care Team Related Persons Name: ARELI JORGE Address: home [address] [facility], [place] [id number]
[2024-01-20] MEDS: ATORVASTATIN 20 MG TAB PO SCH (21:27)
[2024-01-20] MEDS: cefTRIAXone SODIUM 1,000 MG in DEXTROSE 5 % MINI-B 50 ML IV SCH (21:28)
[2024-01-21 08:42] LABS: Basophils # (auto) 0.04 K/uL (0.00-0.20); Basophils % (auto) 0.5 %; Eosinophils # (auto) 0.22 K/uL (0.00-0.50); Eosinophils % (auto) 2.5 %; Hematocrit (blood only) 37.6 % (42.0-52.0); Hemoglobin 12.8 g/dl (14.0-18.0); Immature Granulocytes # (auto) 0.05 K/uL (0.01-0.20); Immature Granulocytes % (auto) 0.6 %; Lymphocytes # (auto) 1.98 K/uL (1.20-3.40); Lymphocytes % (auto) 22.9 %; Mean Corpuscular Hemoglobin 30.9 pg (25.0-34.0); Mean Corpuscular Volume 90.8 fL (80.0-100.0); Mean Platelet Volume 9.5 fL (9.4-12.4); Monocytes # (auto) 0.71 K/uL (0.11-0.59); Monocytes % (auto) 8.2 %; Neutrophils # (auto) 5.66 K/uL (1.40-6.50); Neutrophils % (auto) 65.3 %; Platelet Count 129 K/uL (130-400); RDW Coefficient of Variation 12.1 % (11.5-14.5); RDW Standard Deviation 40.3 fL (36.4-46.3); Red Blood Count 4.14 M/uL (4.70-6.10); White Blood Count 8.66 K/ul (4.8-10.8)
[2024-01-21 08:52] LABS: BUN Creatinine Ratio 16.2 (10-20); Creatinine Clr Calc Pharmacy 69.5 ml/min; Est GFR (African American) 99.6 ml/min; Est GFR (Non-African American) 85.9 ml/min; Potassium 3.4 mmol/L (3.5-5.1)
--- NOTE | 2024-01-21 10:17 | Discharge Summary ---
Date of Service January 21, 2024 Admission HPI Per Admitting Provider 83 year old male with a past medical history of bladder cancer 2010, HTN, HLD, hypothyroidism, DM2 presenting with concern for UTI. Subjective fever x 1day, urinary incontinence, increased frequency, dysuria, flank pain B/L, body aches. Increased weakness, difficultly ambulating. History of bladder cancer treated in 2010. states that he has been weak to the point where he is having trouble getting out of bed, started this morning. Was seen by PCP this afternoon. Tachycardic in the office at 110s, febrile with temp of 38.8. UA positive for blood, nitrites, LE and recommend that he got to ED. In the ED patient was found to be tachycardic in the 90s, Leukocytosis=17, UA positive for blood, nitrite, LE. CXR without acute pathology. CT A&P with bladder wall thickening. Was given ceftriaxone and 1L IVF. Admission Exam Per Admitting Provider Constitutional: well-appearing, no acute distress HEENT: NCAT, no conjunctival injection CV: regular rhythm, no murmur appreciated, extremities well-perfused, no LE edema Resp: CTABL, no wheezes/rales/rhonchi appreciated, no increased work of breathing GI: soft, nondistended, nontender, BS normoactive, +CVA tenderness B/L MSK: no gross deformities appreciated Skin: warm, dry, no rash appreciated Neuro: alert, oriented, no focal neurologic deficit appreciated Principal Diagnosis UTI sepsis Discharge Exam General: no acute distress, speaking in full sentences Resp: good inspiratory effort, no labored breathing HEENT: conjunctivae appear clear, no audible congestion, no swelling noted face or lips Skin: skin appears dry, normal coloration, no rash visible on exposed skin areas Neuro: alert and oriented x3, no focal deficits appreciated Psych: euthymic affect, pleasant and interactive, logical thought process Discharge Data Allergies Allergy/AdvReac Type Severity Reaction Status Date / Time No Known Allergies Allergy Mild NONE Unverified 01/19/24 20:15 Consultations 01/19/24 20:17 ED Decision to Admit Stat Ordered Studies 01/19/24 17:38 CT Abd and Pelvis [CT abd pelvis IV con only] Stat 01/20/24 US gallbladder Stat Hospital Course (1) Sepsis due to urinary tract infection: 83 M with history of T2DM, hypothyroidism, hypertension, hyperlipidemia, who presented to the emergency room with dysuria, urinary frequency, weakness. Now admitted to the hospital for management of sepsis presumed secondary to UTI. UTI Sepsis-improving - SIRS positive with leukocytosis=17 and tachycardia, likely source urine. Leukocytosis resolved (WBC-8.66) on day of discharge. - lactate= 1.7 - fluid resuscitation s/p 2L IVF, continue maintenance fluids @ 125ml/hr - blood and urine cultures pending revealed pansensitive E. coli. * IV ceftriaxone 2 g every 24 hours * Discharged home on cefdinir 300 mg twice daily x 7 days Elevated total bilirubin -Total bilirubin on admission 2.3. No evidence of transaminitis. No prior elevations. -CT A/P negative for acute findings, US gallbladder negative for gallbladder wall thickening, gallstones. -Repeat total bilirubin 1.6. No further action indicated. Hypertension -Chronic. Managed at home on verapamil 100 mg every morning. * Continued home verapamil Hypothyroidism * Continue home levothyroxine Type 2 Diabetes uncontrolled -Chronic. Managed at home on metformin 1000 mg twice daily. -Last recorded Hgb A1c 7.0% (06/27/2022). Hgb A1c on admission 8.8%. * Home metformin held on admission. Continue at discharge. * SSI insulin, ACHS glucose checks during admission. * Strongly recommend the addition of SGLT2 inhibitor the patient's antihyperglycemic regimen. Recommend metformin-empagliflozin combination pill. Hyperlipidemia * Continued home atorvastatin Total Time Total Time Spent Total Time Spent (In Minutes): >30 Discharge Plan Discharge Items Patient Disposition: Home - Self-Care Reason For Visit: UTI Discharge Diagnosis: UTI - improving (see below) Activity: Resume your previous activity Non-emergency contact: Primary Care Provider Call non-emergency contact if: you have any medication questions and your symptoms worsen Follow-up/Referrals: Delbert Guzmán MD [Primary Care Provider] - Diet: Carb Consistent or DM2 Addtl Attending Provider Instructions: Urinary tract infection and sepsis -as we discussed, the reason you ended up feeling so weak was due to not only the urinary tract infection (which accounts for the urinary symptoms) but also because your immune system over-reacted in a process we call sepsis. Sepsis is basically going to be the inflammatory response that should have only been focused on your bladder impacting your whole body (hence why you felt so weak). Fortunately (as is the case with most people) the septic response quickly improved (technically you improved so quickly that you were no longer even septic by the time we first met yesterday). -there's nothing about this that appears to have related to your prior history of bladder cancer - as we discussed, cancer recurrences that show symptoms almost always come in the context of peeing blood (and maybe an infection in the context of all the blood); further your CT scan just showed a bladder that looked consistent with inflammation, and not any focused thickening that would be consistent with a cancer. (Going down a "rabbit hole" - for accuracy of diagnostic testing, a scope will be more accurate than a CT scan, and if you were to start to have recurrent infection after recurrent infection, or if you were to start to notice peeing blood, then we'd want to get you set up for a scope -but reallly that would, of course, be a whole different story than what you have going on right now) -the infection was from a strain of E Coli that is sensitive to all antibiotics tested. E Coli is the most common UTI bug because it's also one of the most common bugs in our intestines. what probably happened was the diarrhea caused by the prostate supplement likely increased the bacterial load on your pelvic floor, and then the infection happened just due to more / more heavy exposure to the bacteria -because the E Coli was sensitive to all antibiotics tested against it, this will be really easy to treat. the ceftriaxone we gave you IV here has gotten ahead of the infection well, and we'll finish out treatment with an oral antibiotic called cefdinir - which is a very close cousin to the IV ceftriaxone you were on -ceftriaxone lasts for about 24 hours, so you won't need to start the cefdinir until tomorrow morning (01/22/24), then it will be 300mg twice a day (morning and night) until you complete the prescription -as we discussed, full recovery will be annoyingly slow. it'll probably take a month until you really feel like yourself again. the urinary symptoms will go away first, but it wouldn't surprise me at all if it takes several weeks for the fatigue and weakness to improve. definitely do as much as you can - it's OK to push yourself (and that will probably get you better faster, as long as you don't overdo it, and as long as you're getting enough sleep and enough to eat and drink) -there was nothing about your situation that appeared consistent with a prostate infection at the same time as the bladder infection - but it does happen reasonably commonly in men. The main difference would really just be duration of treatment. If you have a sudden worsening of your urinary symptoms a few days after you complete the oral antibiotics, that could be a hint that you were subtly smoldering a prostate infection. while this is pretty unlikely, i mention it just so we have a working "game plan" if you finish antibiotics and then have symptoms recur shortly afterwards prostate issues -definitely stop the prostate supplement. the research in those supplements (especially the saw palmetto portion of it) unfortunately showed no real benefit for people. beyond that, since it was causing you the problem of diarrhea, and it wasn't helping, it makes sense in both "directions" (both causing some harm, and not having benefit) to drop it -as we discussed, it's a little incongruous for a patient looking at prostate issues (very very common in men as we age) to be on a medicine for overactive bladder (oxybutynin). it certainly is possible that you do have overactive bladder and not prostate symptoms, but it's also concerning (since the symptoms we feel for both are so similar) that we might have you on a medicine that eventually is going to lead to more problems than good -Dr Guzmán will know you far better than me in this realm - it's always hard to discern this kind of stuff when you're seeing someone at one point in time and sort out a problem that has a lot of nuance and "shades of summers," so definitely follow up regularly with him about your urinary symptoms -to help figure things out - the cardinal symptoms we look at with prostate related urinary symptoms are: nighttime urination (so keep a log of how often you have to wake at night to pee), urinary frequency (how often you have to pee and then pee again right after), urinary hesitancy (you go to pee but it takes a while to get the stream started), and dribbling at the end of urination. tracking those symptoms can help you and Dr Guzmán determine exactly what is going on and how best to address it. if it does bag turner that your symptoms are far more prostate related than overactive bladder, prostate specific treatments usually work pretty well for most men diabetes -as we discussed, your A1c jumped from your usual good control to 8.8%. the main reason we worry about diabetes is that high sugar clogs arteries, so the higher our sugar is, the more we're knocking off blood vessels we can't get back. typically for A1c purposes anything above 7% starts to "not quite linearly" correlate with clogging arteries (or looking at it in the context of any random sugar reading - anything above ~150-160 two hours after you've eaten would also correlate). Obviously higher is worse, but at the same time, even an A1c of 8.8% now really would correlate more with bad outcomes accumulated over the next 5-10 years - so it's more something in need of a "course correction" than it is something emergent -typically when we see someone who's sugars have been good suddenly be "less good" it almost always (99% or more of the time!) relates to simple/starchy/bready/sugary carbs in our diet. since most people don't really have very accurate diet recall, it's usually way more useful to pay attention to this moving forward, rather than trying to look back to figure it out. -the easiest way to determine what you're eating or drinking that's spiking your sugar will be to check sugars ~2 hours after eating. since our body absorbs and digests food with a peak of absorption about an hour after we're done eating, and then our pancreas makes insulin to get that sugar out of our bloodstream and into your muscles, checking about 2 hours after is a good time to "grade your work" - and for most people this is a way easier way to figure out what you're eating that is spiking your sugar than trying to analyze things more "intellectually". an easy rule would be checking your sugar ~2 hours after eating and then anything that has spiked your sugar to above ~160 in that timeline is part of the culprit for the increase in A1c. from there you can just start to cut back some on those specific foods and usually get things back in line. prior stroke -as we discussed, it did get my attention that you weren't on an aspirin anymore despite your prior stroke. while there is a healthy debate on the risks and benefits of aspirin intermediate card tender, most of the debate is centered on "primary prevention" (meaning using aspirin to prevent a stroke in someone who has risks for clogging arteries, but has never had a stroke). it's far less controversial for "secondary prevention" (using aspirin to prevent another stroke in someone who's had one in the past). like we talked, there's never really a "good decision" in medical care - it's all about trying to determine the "best bad decision." but in a patient who's had a stroke, and who has not had prior bleeding problems/stomach ulcers/etc, i would recommend going back on an 81mg aspirin daily. (even when you compare the possible bad outcomes - as the doc who takes care of both strokes and bleeds, a bleed is almost always something we can stabilize and fix, we can never give someone back brain tissue after a stroke). -i would definitely talk more with Dr Guzmán about this as well, though, given that he'll be the doc taking care of you far more longitudinally than me! Pending Studies at Discharge: No Stand-Alone Forms: My [facility] [employer], Smoking Cessation Medications and DC Order Prescriptions: New cefdinir 300 mg capsule 300 mg PO BID Qty: 14 0RF Continued verapamil 180 mg tablet extended release 180 mg PO QAM levothyroxine 25 mcg tablet 25 mcg PO DAILYBB metformin 500 mg tablet 1,000 mg PO BID atorvastatin 20 mg tablet 20 mg PO HS oxybutynin chloride 10 mg tablet extended release 24hr 10 mg PO QAM Discharge Orders: Discharge Order (Routine); Ordered 01/21/24 Ordered By: Terence Vallecillo/Other Patient Handouts: Managing Type 2 Diabetes Admission Data Admit Date/Time: 01/19/24 20:53 Attending Provider: Terence Saini Admit Provider: Anjelica Garza Primary Care Provider: Delbert Guzmán Other Providers: Deb Pressley Other Interventions: Discharge Summary Assessment (RN) Last Done: 01/21/24 11:25 Supervising Physician Co-Signing Physician Notes I personally examined the patient and verified all walker points of history and exam, discussed case, and agree with decision making with Dr Gabriel feels better overall, feels up to going home. Vitals noted, in general he is awake and alert pleasant mildly fatigued no acute distress. HEENT normocephalic atraumatic mucous membranes moist. Breathing unlabored no accessory muscle use good effort. Skin shows no rashes no pallor or icterus. Neuro without focal deficits. UTI with sepsis present on admissionfortunately improving nicely. pansensitive E. colifinish out treatment with cefdinir. Sepsis already resolved. Nothing in symptoms or imaging fitting with upper tract infection such as Pyelo, or concomitant prostatitis. Obviously continue to follow as. It sounds like the "why now" for his infection may have been diarrhea inflicted from a supplement he was taking for BPH. Weaknessfortunately already improving. Was able to walk to and from the bathroom under his own power slow and steady and to get in and out of bed on his own as well. Fortunately will not need to go to rehab. Encouraged ongoing ambulation to prevent further weakness. Questionable BPHit sounds like he probably has 2 times nocturia is a baseline symptom, it obviously is a little bit difficult to discern the rest of his BPH symptoms when he is here acutely infected. Will have him catalog regular more routine symptoms once he is better the from this and discussed further with his PCP. also of note, he is on oxybutynindid discuss that that would be potentially counterproductive if his urinary symptoms are due to BPH, which is yet another reason to catalog symptoms and follow closely with PCP Prior strokenot on antiplatelet therapy currently, he notes this is because his PCP prior to his current 1 (prior PCP has now retired) was discussing the question of risk/benefit of aspirinwe discussed that my interpretation of the data would be that primary prevention is fairly nebulous data that would likely favor not being on antiplatelets, but secondary risk reduction would really probably favor. Discussed that it made sense to talk about this further with his PCP, but given that he has no real escalated bleed risk and has not run into prior problems with bleeding/peptic ulcer disease/etc. I would be in favor of him resuming his aspirin DVT prophylaxisLovenox Elevated bilirubinimproving, nonspecific. Certainly no concerning findings. safe/stable for home, close and ongoing PCP follow-up
[2024-01-21] MEDS: cefTRIAXone SODIUM 1,000 MG in DEXTROSE 5 % MINI-B 50 ML IV STA (10:41)
--- NOTE | 2024-01-21 17:44 | Billing Data ---
Date of Service January 21, 2024 Coding Level of Care Code 12785 INP/OBS DISCH >30 MIN
== END 2024-01-21 12:23 | disposition home or self-care (01) | DRG 872 ==
LOC: ED 17:09 → SUATTDRO 20:53 → EDINP 20:53 → INTOOBSV 20:53 → 2N 22:14

== ENCOUNTER 2024-01-24 15:34 | Observation (INO) ==
[2024-01-24] MEDS ORDERED: Patient's HEIGHT &/or WEIGHT Needed SCH (15:47)
--- NOTE | 2024-01-24 15:50 | ED Triage Note ---
Date of Service January 24, 2024 Provider in Triage Author: Agata Philip History of Present Illness This patient was briefly evaluated while in triage. An abbreviated physical exam was performed. This patient is a 83-year-old Male who presents to the ED for evaluation of left foot pain and redness. Recently admitted and discharged from hospital yesterday following treatment of UTI. Noticed pain and redness dorsal left foot. Denies known injury or wounds. Denies fevers. History of diabetes. Denies gout history. Physical Exam Constitutional: alert and oriented x3. no acute distress. HEENT: normocephalic, atraumatic. normal conjunctiva.PERRLA. EOM's grossly intact. Respiratory: equal chest rise. normal respiratory effort, no accessory muscle use. Cardiovascular: normal heart sounds without murmur. regular rate and rhythm. MSK: moves all 4 extremities spontaneously. erythema dorsal left 1st metatarsal with associated swelling Psych:appropriate mood and affect. Initial orders for labs and / or imaging were placed and patient was placed in the waiting area until a bed is available. Please see further documentation for the full ED course.
[2024-01-24 16:46] LABS: Basophils # (auto) 0.03 K/uL (0.00-0.20); Basophils % (auto) 0.3 %; Eosinophils # (auto) 0.07 K/uL (0.00-0.50); Eosinophils % (auto) 0.7 %; Hematocrit (blood only) 37.8 % (42.0-52.0); Hemoglobin 13.1 g/dl (14.0-18.0); Immature Granulocytes # (auto) 0.09 K/uL (0.01-0.20); Immature Granulocytes % (auto) 0.8 %; Lymphocytes # (auto) 1.24 K/uL (1.20-3.40); Lymphocytes % (auto) 11.6 %; Mean Corpuscular Hemoglobin 31.5 pg (25.0-34.0); Mean Corpuscular Hgb Conc 34.7 g/dL (32.0-36.0); Mean Corpuscular Volume 90.9 fL (80.0-100.0); Mean Platelet Volume 9.6 fL (9.4-12.4); Monocytes # (auto) 1.14 K/uL (0.11-0.59); Monocytes % (auto) 10.7 %; Neutrophils # (auto) 8.08 K/uL (1.40-6.50); Neutrophils % (auto) 75.9 %; Platelet Count 183 K/uL (130-400); RDW Coefficient of Variation 12.2 % (11.5-14.5); RDW Standard Deviation 40.4 fL (36.4-46.3); Red Blood Count 4.16 M/uL (4.70-6.10); White Blood Count 10.65 K/ul (4.8-10.8)
[2024-01-24 17:03] LABS: Anion Gap 9 (3-11); BUN Creatinine Ratio 22.8 (10-20); Blood Urea Nitrogen 28 mg/dl (6-23); Calcium 9.1 mg/dl (8.6-10.3); Carbon Dioxide 23 mmol/L (21-32); Chloride 103 mmol/L (98-107); Est GFR (Non-African American) 54.3 ml/min; Glucose 260 mg/dl (70-99(Fasting)); Potassium 4.1 mmol/L (3.5-5.1); Sodium 135 mmol/L (136-145)
--- NOTE | 2024-01-24 17:08 | XRay Report ---
XR foot LT min 3V routine CLINICAL HISTORY: Left dorsal 1st metatarsal pain/redness TECHNIQUE: 3 views of the left foot were obtained. Comparison: None available at the time of this dictation. FINDINGS: No fractures are present. Degenerative changes are seen. Soft tissue swelling is seen about the foot. IMPRESSION: Soft tissue swelling is seen without evidence of underlying bony abnormality. ACT 112: Negative or not required by law. Electronically signed by: Miko Mcduffie M.D. 01/24/2024 5:06 PM
--- NOTE | 2024-01-24 19:02 | Emergency Department Note ---
Impression & Plan Cellulitis, Acute foot pain, Hyperglycemia ED Provider Note NAME: TC JORGE AGE: 83 SEX: M : 1940 ARRIVES VIA: Walk-In INFORMANT: Patient, ED PROVIDER(S): Shaq Santos MD CHIEF COMPLAINT: Foot pain MEDICAL DECISION MAKING: Patient presents due to concern for foot pain and redness. IV was established and blood was obtained along with an x-ray. Patient has a normal white count hemoglobin of 13.1 with a normal platelet count. Patient's kidney function is unremarkable. BSG is elevated to 60 but not DKA with normal bicarb and anion gap. Patient's foot x-ray does show some soft tissue swelling but no evidence of bony abnormality. Patient was noted to have some redness to the ankles a plain x-ray was ordered in addition to a DVT ultrasound of the patient's left lower extremity is more swollen compared to the right. Patient was ordered IV Rocephin as the patient certainly could have a concomitant cellulitis. Patient's DVT ultrasound does not show any evidence of DVT there is a vascular structure noted over the foot. Patient could have concomitant gout but I am concerned that the patient may have expanding cellulitis even during the time that he has been present here in the emergency department. Furthermore, the patient has been on cefdinir which should help with treatment with cellulitis but this has been developing even while he has been taking cefdinir at home for his UTI. Patient was ordered vancomycin noted through the on-call hospitalist Dr. Plaza and the patient was admitted to the medicine service Discussion w/ other healthcare providers: Dr. Plaza inpatient medicine service Prior /Outside records reviewed: None Differential diagnosis: Cellulitis, abscess, MRSA infection, DVT, necrotizing fasciitis, dermatitis, drug eruption, allergic reaction, as well as other pathologies were considered. Diagnostics, as interpreted by me: ECG: None Cardiac monitoring: An order was placed for continuous cardiac monitoring. The monitor shows a rate of 78 with sinus rhythm. Patient was placed on pulse oximetry Medical decision rules: None Imaging studies: I informally interpreted the patient's foot x-ray does not show obvious fracture or dislocation with formal report to follow. I informally interpreted the patient's ankle x-ray which does not show obvious fracture dislocation with formal report to follow. HPI: Patient presents due to concern for foot pain and swelling. The patient initially noticed this on Monday afternoon. The patient denies any inciting insult or event. No twisting turning or increase in activity. The patient is a known diabetic. The patient was recently seen in the hospital for a UTI. Patient denies any fevers but has felt a bit chilled. Patient denies any prior history of gout or pseudogout. The patient does have pain to palpation to the left foot as well as pain with ambulation. Patient denies any prior history of DVT or PE no chest pains or shortness of breath. No nausea vomiting or diarrhea. Patient has not take anything for symptoms at home. Patient is accompanied by significant other who confirms the same. PAST MEDICAL HISTORY: See Below PAST SURGICAL HISTORY: See Below SOCIAL HISTORY: See Below HOME MEDICATIONS: See Below ALLERGIES: See Below VITALS: See Below PHYSICAL EXAMINATION: GENERAL: NAD, non-toxic. EYE EXAM: Normal conjunctiva. PERRL, no anisocoria and EOM's grossly intact w/o pain. OROPHARYNX: Moist mucus membranes, grossly normal dentition. NECK: Trachea midline, no stridor. Supple, no nuchal rigidity, no adenopathy, non-tender. No signs of meningismus. FROM of the neck with good chin to chest and neck extension. LUNGS: Clear to auscultation. Normal chest wall mechanics. HEART: NSR, no MRG. ABDOMEN: Abdomen soft, non-tender, no masses, no rebound or guarding. BACK: No CVA TTP. SKIN: No rashes and no bruising. UPPER EXTREMITIES: Upper extremities are grossly normal. LOWER EXTREMITIES: Left greater than right lower extremity edema with associated erythema located over the anterior and medial ankle as well as the proximal foot with associated swelling, left lower extremity is greater in size compared to the right, sensate and well-perfused. No crepitus. NEURO EXAM: A&O x3, cranial nerves II-XII grossly intact, normal speech, moves all 4 extremities. Past Med/Surg History Medical History CVA (cerebral vascular accident) 2013 Hypothyroid Hypercholesteremia Diabetes Kidney disease Bladder cancer Surgical History No significant past surgical history Family History Mother , age 84 of uncertain cause Hypertension Father , age 64 with tuberculosis Tuberculosis Social History Smoking Status: Never smoker Tobacco Type: Cigarettes Hx Alcohol Use: Yes Alcohol type: wine Alcohol Intake Frequency Comment: 1 glass with dinner 4 times per week Hx Substance Use: No Preferred Language: [place] Communication Ability: Effective Smelter Liner Required: No Beliefs That Will Affect Care: None Current Living Situation: Spouse Current Living Situation Comment: Lives with at [facility] current occupational status: 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 Feels Safe at Home: Yes Assistive Devices: None Allergies Allergies Allergy/AdvReac Type Severity Reaction Status Date / Time No Known Allergies Allergy Mild NONE Verified 01/24/24 21:27 Home Meds Home Medications Medication Instructions Recorded Confirmed levothyroxine 25 mcg tablet 25 mcg PO DAILYBB 08/19/19 01/24/24 verapamil 180 mg tablet,extended 180 mg PO QAM 08/19/19 01/24/24 release atorvastatin 20 mg tablet 20 mg PO HS 04/15/21 01/24/24 metformin 500 mg tablet 1,000 mg PO BID 04/15/21 01/24/24 oxybutynin chloride 10 mg 10 mg PO QAM 01/19/24 01/24/24 tablet,extended release 24 hr aspirin 81 mg tablet,delayed 81 mg PO DAILY 01/24/24 01/24/24 release Previous Rx's Medication Instructions Recorded cefdinir 300 mg capsule 300 mg PO BID #14 caps 01/21/24 Results & Data (ED) Vital Signs Vital Signs - 24 hr 01/24/24 15:47 01/24/24 20:30 Temperature 36.5 C 36.7 C Temperature Source Temporal Artery Scan Oral Pulse Rate 87 Pulse Rate [Left Finger] 78 Pulse Rhythm [Left Finger] Regular Pulse Strength [Left Finger] Normal Respiratory Rate 20 18 Respiratory Effort / Characteristics Non-Labored Spontaneous Non-Labored Respiratory Depth Normal Normal Respiratory Pattern Regular Regular Blood Pressure 132/73 Blood Pressure [Right Arm] 162/72 H Blood Pressure Mean 92 Blood Pressure Mean [Right Arm] 102 Blood Pressure Position Sitting Blood Pressure Position [Right Arm] Sitting Pulse Oximetry 98 98 Oxygen Delivery Method Room Air Room Air Sepsis Recent Fever Within 48 Hours No Sepsis New/Unexplained Change in Mental Status No Sepsis Action Taken by Nursing No Action Required Home Medications Current Medication List: was personally reviewed by me Laboratory Data Attestation: I reviewed the patient's lab results. 01/24/24 16:18 01/24/24 16:18 Lab Results 01/24/24 Range/Units 16:18 WBC 10.65 (4.8-10.8) K/ul RBC 4.16 L (4.70-6.10) M/uL Hgb 13.1 L (14.0-18.0) g/dl Hct 37.8 L (42.0-52.0) % MCV 90.9 (80.0-100.0) fL MCH 31.5 (25.0-34.0) pg MCHC 34.7 (32.0-36.0) g/dL RDW Std Deviation 40.4 (36.4-46.3) fL RDW Coeff of Parvin 12.2 (11.5-14.5) % Plt Count 183 (130-400) K/uL MPV 9.6 (9.4-12.4) fL Immature Gran % (Auto) 0.8 % Neut % (Auto) 75.9 % Lymph % (Auto) 11.6 % Sauk % (Auto) 10.7 % Eos % (Auto) 0.7 % Baso % (Auto) 0.3 % Neut # (Auto) 8.08 H (1.40-6.50) K/uL Lymph # (Auto) 1.24 (1.20-3.40) K/uL Sauk # (Auto) 1.14 H (0.11-0.59) K/uL Eos # (Auto) 0.07 (0.00-0.50) K/uL Baso # (Auto) 0.03 (0.00-0.20) K/uL Immature Gran # (Auto) 0.09 (0.01-0.20) K/uL Sodium 135 L (136-145) mmol/L Potassium 4.1 (3.5-5.1) mmol/L Chloride 103 (98-107) mmol/L Carbon Dioxide 23 (21-32) mmol/L Anion Gap 9 (3-11) BUN 28 H (6-23) mg/dl Creatinine 1.23 (0.6-1.4) mg/dl Est Cr Clr Drug Dosing Not Reportable Est GFR ( Amer) 63.0 ml/min Est GFR (Non-Af Amer) 54.3 ml/min BUN/Creatinine Ratio 22.8 H (10-20) Glucose 260 H (70-99(Fasting)) mg/dl Uric Acid 5.9 (2.6-7.2) mg/dl Calcium 9.1 (8.6-10.3) mg/dl Total Bilirubin 1.4 H (0.2-1.0) mg/dl Direct Bilirubin 0.3 H (0-0.2) mg/dl AST 26 (13-39) U/L ALT 32 (7-52) U/L Alkaline Phosphatase 63 (34-104) U/L Total Protein 7.6 (6.0-8.3) gm/dl Albumin 3.9 (3.4-5.0) gm/dl Administered Medications Discontinued Medications Acetaminophen (Acetaminophen 500 Mg Tab) 1,000 mg PO NOW STA Stop: 01/24/24 20:08 Last Admin: 01/24/24 20:15 Dose: 1,000 mg Documented By: LIVIER Ceftriaxone Sodium (Rocephin) 2,000 mg in 50 mls @ 100 mls/hr IV NOW STA Stop: 01/24/24 19:44 Last Infusion: 01/24/24 20:52 Dose: Infused Documented By: Admin: 01/24/24 20:15 Dose: 100 mls/hr Documented By: LIVIER Acetaminophen (Ofirmev) 1,000 mg in 100 mls @ 400 mls/hr IV NOW STA Stop: 01/24/24 19:29 Last Admin: 01/24/24 20:15 Dose: Not Given Documented By: LIVIER Imaging Data Radiologist's Impression: Foot X-Ray 01/24/24 15:50 XR foot LT min 3V routine CLINICAL HISTORY: Left dorsal 1st metatarsal pain/redness TECHNIQUE: 3 views of the left foot were obtained. Comparison: None available at the time of this dictation. FINDINGS: No fractures are present. Degenerative changes are seen. Soft tissue swelling is seen about the foot. IMPRESSION: Soft tissue swelling is seen without evidence of underlying bony abnormality. ACT 112: Negative or not required by law. Electronically signed by: Miko Mcduffie M.D. 01/24/2024 5:06 PM Venous Doppler Study 01/24/24 19:15 US venous doppler LE LT CLINICAL HISTORY: LLE swelling TECHNIQUE: Left lower extremity real-time compression venous ultrasound with Color Doppler imaging. Utilizing real-time ultrasonic imaging multiple real time high-resolution ultrasonic images with compression and noncompression maneuvers of the deep venous system in addition to color doppler imaging were performed from the common femoral vein through the proximal calf veins. COMPARISON: None available at the time of this dictation. FINDINGS/IMPRESSION: Currently there is normal compressibility of the deep venous system from the common femoral vein through the proximal calf veins. Vascular structure is seen superior to left foot measuring 2.3 x 0.7 x 1.7 cm with surrounding edema. Findings are nonspecific, clinical correlation is recommended and continued follow-up and/or tissue sampling can be performed. ACT 112: Negative or not required by law. Electronically signed by: Miko Mcduffie M.D. 01/24/2024 10:11 PM Discharge Plan Visit Data Chief Complaint: Foot Injury/Pain Stated Complaint: LEFT FOOT PAIN ED Provider: Shaq Santos Discharge Problem: Cellulitis, Acute foot pain, Hyperglycemia Patient Disposition: Home - Self-Care Condition: Good Discharge Instructions Krames/Other Patient Handouts: Cellulitis Dc Activity Restrictions/Additional Instructions: Please return to the emergency department if you have worsening or recurrent symptoms not amenable to at-home treatment. Please call for a follow-up appointment with her primary care physician. Please take your medications as prescribed. If you have other concerns and/or complaints please feel free to also call your primary care physician's office or return the ED for further evaluation, management, and treatment. Take your medications as prescribed. If taking an antibiotic consider taking a probiotic and/or eating yogurt, but at the least, please take with food as it can cause upset stomach. If culture results are not available at discharge, if they are positive for concern of infection, you will be informed of the results as soon as they are available. Your ultrasound did not show any evidence of blood clot. Your ultrasound did show vascular structure with some surrounding edema. Please follow-up with your PCP. You have been examined and treated today on an emergency basis only. This is not a substitute for, or an effort to provide, complete comprehensive medical care. It is impossible to recognize and treat all injuries or illnesses in a single emergency department visit. It is therefore important that you follow up closely with [facility], your PCP, and/or your specialist(s). Call as soon as possible for an appointment. Interventions: ED Discharge Assessment Last Done: 01/25/24 00:13 Forms Stand Alone Forms: My [facility], Important Visit Information Prescriptions Prescriptions: No Action verapamil 180 mg tablet extended release 180 mg PO QAM levothyroxine 25 mcg tablet 25 mcg PO DAILYBB metformin 500 mg tablet 1,000 mg PO BID atorvastatin 20 mg tablet 20 mg PO HS oxybutynin chloride 10 mg tablet extended release 24hr 10 mg PO QAM cefdinir 300 mg capsule 300 mg PO BID Qty: 14 0RF Rx Instructions: STARTED 01/21/24 FOR 7 DAYS aspirin 81 mg Tablet,Delayed Release (Dr/Ec) 81 mg PO DAILY Referrals Referrals: Delbert Guzmán MD [Primary Care Provider] - Discharge Problem: Cellulitis Qualifiers: Site of cellulitis: unspecified site Qualified Code(s): L03.90 - Cellulitis, unspecified Acute foot pain Qualifiers: Laterality: left Qualified Code(s): M79.672 - Pain in left foot
[2024-01-24] MEDS: ACETAMINOPHEN 1,000 MG/100 ML VIAL IV STA (20:15)
[2024-01-24] MEDS: ACETAMINOPHEN 500 MG TAB PO STA (20:15)
[2024-01-24] MEDS: cefTRIAXone SODIUM 2,000 MG/50 ML BAG IV STA (20:15)
--- NOTE | 2024-01-24 22:12 | Ultrasound Report ---
US venous doppler LE LT CLINICAL HISTORY: LLE swelling TECHNIQUE: Left lower extremity real-time compression venous ultrasound with Color Doppler imaging. U tilizing real-time ultrasonic imaging multiple real time high-resolution ultrasonic images with compr ession and noncompression maneuvers of the deep venous system in addition to color doppler imaging we re performed from the common femoral vein through the proximal calf veins. COMPARISON: None available at the time of this dictation. FINDINGS/IMPRESSION: Currently there is normal compressibility of the deep venous system from the common femoral vein thro ugh the proximal calf veins. Vascular structure is seen superior to left foot measuring 2.3 x 0.7 x 1.7 cm with surrounding edema. Findings are nonspecific, clinical correlation is recommended and cont inued follow-up and/or tissue sampling can be performed. ACT 112: Negative or not required by law. Electronically signed by: Miko Mcduffie M.D. 01/24/2024 10:11 PM
[2024-01-24] MEDS ORDERED: VANCOMYCIN CONSULT ACTIVE PRN (23:04)
--- NOTE | 2024-01-24 23:56 | History & Physical Report ---
Date of Service January 24, 2024 Assessment & Plan (1) Cellulitis of left lower extremity: (2) Acute foot pain: (3) Sepsis due to urinary tract infection: (4) Bladder cancer: (5) Hypertension: (6) Diabetes: (7) Hyperglycemia due to type 2 diabetes mellitus: Plan Cellulitis of left lower extremity/possible new diagnosis of gout- Symptoms developed while on cefdinir treatment for UTI Received ceftriaxone from the ED Place on cefepime 2 g IV every 12 hours due to underlying diabetes mellitus Check a uric acid level Start colchicine on modified dosing due to potential interaction with verapamil Hold cefdinir Sepsis due to UTI- Patient reports he had been feeling significantly better after admission and continuance of cefdinir Holding cefdinir for now, placing on IV cefepime for above Hyperglycemia due to diabetes mellitus type 2- Likely secondary to physiologic stress of recent admission for UTI, and present left lower extremity cellulitis/gout Place on Accu-Cheks with NovoLog SSI Hold metformin History of Present Illness Chief Complaint: The patient presents to the emergency department due to concerns regarding swelling and pain of the left foot and ankle that began the day after his d ischarge for admission from 01/18-01/21/2024, during which time he was treated for a urinary tract infection and discharged on cefdinir. Primary Care Provider: Delbert Guzmán MD The patient is an 83-year-old male with a past medical history including sepsis due to UTI, hyperbilirubinemia, bladder cancer, hypertension, TIA, history of CVA, carotid stenosis, hypothyroidism, diabetes mellitus and history of hypertensive crisis. Patient was most recently admitted to [facility] from 01/18-01/21/2024 for sepsis due to urinary tract infection, and was discharged on and continues to take cefdinir. Patient presents to the emergency department with significant left lower extremity cellulitis and swelling of dorsum of left foot and ankle, along with severe pain, in spite of being on cefdinir. Allergies Allergy/AdvReac Type Severity Reaction Status Date / Time No Known Allergies Allergy Mild NONE Verified 01/24/24 21:27 Home Medications Medication Instructions Recorded Confirmed Type levothyroxine 25 mcg tablet 25 mcg PO DAILYBB 08/19/19 01/24/24 History verapamil 180 mg tablet,extended 180 mg PO QAM 08/19/19 01/24/24 History release atorvastatin 20 mg tablet 20 mg PO HS 04/15/21 01/24/24 History metformin 500 mg tablet 1,000 mg PO BID 04/15/21 01/24/24 History oxybutynin chloride 10 mg 10 mg PO QAM 01/19/24 01/24/24 History tablet,extended release 24 hr cefdinir 300 mg capsule 300 mg PO BID #14 caps 01/21/24 01/24/24 Rx aspirin 81 mg tablet,delayed 81 mg PO DAILY 01/24/24 01/24/24 History release Past Med/Surg History Medical History (Updated 01/25/24 @ 03:53 by Lucius Garrett MD) CVA (cerebral vascular accident) 2012 Hypothyroid Hypercholesteremia Diabetes Kidney disease Bladder cancer Surgical History No significant past surgical history Family History Mother , age 84 of uncertain cause Hypertension Father , age 64 with tuberculosis Tuberculosis Social History Smoking Status: Never smoker Tobacco Type: Cigarettes Hx Alcohol Use: Yes Alcohol type: wine Alcohol Intake Frequency Comment: 1 glass with dinner 4 times per week Hx Substance Use: No Preferred Language: Swiss Communication Ability: Effective Surgical Rn Required: No Beliefs That Will Affect Care: None Current Living Situation: Spouse Current Living Situation Comment: Lives with at [facility]. 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 Review of Systems Review of Systems: The patient denies chest pain, palpitations, shortness of breath, dyspnea on exertion, cough, sore throat, fevers, chills, sweats, weight change, fatigue, nausea, vomiting, diarrhea , constipation, abdominal pain, pelvic pain, blood in urine or stool, dysuria, urinary frequency or urgency, lightheadedness, dizziness, headache, memory loss, loss of consciousness, abnormal bruising or bleeding, focal or generalized weakness, numbness or tingling in arms, generalized arthralgias or myalgias, back or neck pain, or night sweats. The review of systems is otherwise negative other than for that already noted above, and at least 10 systems have been reviewed. Physical Exam Physical Exam: The patient is awake, alert and oriented 3, well developed and well nourished, normocephalic and atraumatic, lying in bed and in no acute distress. HEENT--PERRL, EOMI, mucous membranes and oropharynx normal Neck--supple. No JVD. No bruits. Thyroid normal, trachea midline, no adenopathy. Heart--normal S1 and S2. No murmurs, rubs or gallops. Lungs--clear bilaterally, no respiratory distress, no accessory muscle use. Abdomen--normal bowel sounds and soft. Nontender. Nondistended, no hernias or masses, no organomegaly. Extremities--right lower extremity is normal. Left foot and ankle painful to light touch, mild erythema, 2+ edema and restricted movement. Dermatologic--normal except for left foot and ankle Neurologic--cranial nerves II through XII grossly intact. Rheumatologic--normal range of motion except for left foot and ankle Psychiatric--normal affect. Results & Data Results & Data Vital Signs (Past 12 Hours) Vital Signs Temp Pulse Pulse Resp BP BP Pulse Ox 01/24/24 20:30 36.7 C 78 18 162/72 H 98 01/24/24 15:47 36.5 C 87 20 132/73 98 O2 Del Method 01/24/24 20:30 Room Air 01/24/24 15:47 Room Air Laboratory Results Laboratory Results WBC 10.65 K/ul (4.8-10.8) 01/24/24 16:18 RBC 4.16 M/uL (4.70-6.10) L 01/24/24 16:18 Hgb 13.1 g/dl (14.0-18.0) L 01/24/24 16:18 Hct 37.8 % (42.0-52.0) L 01/24/24 16:18 MCV 90.9 fL (80.0-100.0) 01/24/24 16:18 MCH 31.5 pg (25.0-34.0) 01/24/24 16:18 MCHC 34.7 g/dL (32.0-36.0) 01/24/24 16:18 RDW Std Deviation 40.4 fL (36.4-46.3) 01/24/24 16:18 RDW Coeff of Parvin 12.2 % (11.5-14.5) 01/24/24 16:18 Plt Count 183 K/uL (130-400) 01/24/24 16:18 MPV 9.6 fL (9.4-12.4) 01/24/24 16:18 Immature Gran % (Auto) 0.8 % 01/24/24 16:18 Neut % (Auto) 75.9 % 01/24/24 16:18 Lymph % (Auto) 11.6 % 01/24/24 16:18 Garrard % (Auto) 10.7 % 01/24/24 16:18 Eos % (Auto) 0.7 % 01/24/24 16:18 Baso % (Auto) 0.3 % 01/24/24 16:18 Neut # (Auto) 8.08 K/uL (1.40-6.50) H 01/24/24 16:18 Lymph # (Auto) 1.24 K/uL (1.20-3.40) 01/24/24 16:18 Garrard # (Auto) 1.14 K/uL (0.11-0.59) H 01/24/24 16:18 Eos # (Auto) 0.07 K/uL (0.00-0.50) 01/24/24 16:18 Baso # (Auto) 0.03 K/uL (0.00-0.20) 01/24/24 16:18 Immature Gran # (Auto) 0.09 K/uL (0.01-0.20) 01/24/24 16:18 Sodium 135 mmol/L (136-145) L 01/24/24 16:18 Potassium 4.1 mmol/L (3.5-5.1) 01/24/24 16:18 Chloride 103 mmol/L (98-107) 01/24/24 16:18 Carbon Dioxide 23 mmol/L (21-32) 01/24/24 16:18 Anion Gap 9 (3-11) 01/24/24 16:18 BUN 28 mg/dl (6-23) H 01/24/24 16:18 Creatinine 1.23 mg/dl (0.6-1.4) 01/24/24 16:18 Est Cr Clr Drug Dosing Not Reportable 01/24/24 16:18 Est GFR ( Amer) 63.0 ml/min 01/24/24 16:18 Est GFR (Non-Af Amer) 54.3 ml/min 01/24/24 16:18 BUN/Creatinine Ratio 22.8 (10-20) H 01/24/24 16:18 Glucose 260 mg/dl (70-99(Fasting)) H 01/24/24 16:18 POC Glucose 151 mg/dl (70-99) H 01/25/24 00:40 Uric Acid 5.9 mg/dl (2.6-7.2) 01/24/24 16:18 Calcium 9.1 mg/dl (8.6-10.3) 01/24/24 16:18 Total Bilirubin 1.4 mg/dl (0.2-1.0) H 01/24/24 16:18 Direct Bilirubin 0.3 mg/dl (0-0.2) H 01/24/24 16:18 AST 26 U/L (13-39) 01/24/24 16:18 ALT 32 U/L (7-52) 01/24/24 16:18 Alkaline Phosphatase 63 U/L (34-104) 01/24/24 16:18 Total Protein 7.6 gm/dl (6.0-8.3) 01/24/24 16:18 Albumin 3.9 gm/dl (3.4-5.0) 01/24/24 16:18 Impressions Foot X-Ray 01/24/24 15:50 XR foot LT min 3V routine CLINICAL HISTORY: Left dorsal 1st metatarsal pain/redness TECHNIQUE: 3 views of the left foot were obtained. Comparison: None available at the time of this dictation. FINDINGS: No fractures are present. Degenerative changes are seen. Soft tissue swelling is seen about the foot. IMPRESSION: Soft tissue swelling is seen without evidence of underlying bony abnormality. ACT 112: Negative or not required by law. Electronically signed by: Miko Mcduffie M.D. 01/24/2024 5:06 PM Venous Doppler Study 01/24/24 19:15 US venous doppler LE LT CLINICAL HISTORY: LLE swelling TECHNIQUE: Left lower extremity real-time compression venous ultrasound with Color Doppler imaging. Utilizing real-time ultrasonic imaging multiple real time high-resolution ultrasonic images with compression and noncompression maneuvers of the deep venous system in addition to color doppler imaging were performed from the common femoral vein through the proximal calf veins. COMPARISON: None available at the time of this dictation. FINDINGS/IMPRESSION: Currently there is normal compressibility of the deep venous system from the common femoral vein through the proximal calf veins. Vascular structure is seen superior to left foot measuring 2.3 x 0.7 x 1.7 cm with surrounding edema. Findings are nonspecific, clinical correlation is recommended and continued follow-up and/or tissue sampling can be performed. ACT 112: Negative or not required by law. Electronically signed by: Miko Mcduffie M.D. 01/24/2024 10:[address] 01/24/24 23:57 Exam(s): CT LEFT ANKLE Without Contrast EXAM: CT Left Lower Extremity Without Intravenous Contrast, Ankle CLINICAL HISTORY: Reason for exam: abnormal US. TECHNIQUE: Axial computed tomography images of the left ankle without intravenous contrast. CTDI is 24.91 mGy and DLP is 457.26 mGy-cm. Automated exposure control was utilized for the study. A dose lowering technique was utilized adhering to the principles of ALARA. 3D reconstructed images were created and reviewed. COMPARISON: Left ankle radiographs 01/24/24 FINDINGS: Bones are osteopenic. There is chronic remodeling of the medial and lateral malleoli suggesting old injury. Similarly, corticated ossicle in the distribution of the deltoid ligament is consistent with a remote avulsion fracture. There is no acute fracture or dislocation. Ankle joint is congruent. Talar dome is intact. Subtalar joint is normal. There is mild posterior calcaneal enthesopathy. There is circumferential edema and swelling of the soft tissues. IMPRESSION: 1. Diffuse soft tissue edema and swelling. Correlate for cellulitis. 2. No acute osseous findings. Electronically signed by: Marine Parra M.D. 01/25/24 01:30 AM Code Status & VTE Plan Code Status Full code VTE Prophylaxis Plan VTE Prophylaxis will be ordered: Yes PG Care Time/CCT Total # of Minutes Spent Total Time Spent with Patient: Total time spent is greater than 50% in coordination of care (as documented) at patient's floor/unit and/or counseling patient: Coding Level of Care Code 90883 INT INP/OBS CARE 3/75MIN Diagnoses Cellulitis of left lower extremity L03.116 Acute foot pain M79.672 Laterality: left Sepsis due to urinary tract infection A41.9; N39.0 Bladder cancer C67.9 Hypertension I10 Diabetes E11.9 Hyperglycemia due to type 2 diabetes mellitus E11.65 (2) Acute foot pain Laterality: left Qualified Code(s): M79.672 - Pain in left foot
[2024-01-25 00:17] LABS: Alanine Aminotransferase 32 U/L (7-52); Albumin Level 3.9 gm/dl (3.4-5.0); Alkaline Phosphatase 63 U/L (34-104); Aspartate Aminotransferase 26 U/L (13-39); Bilirubin Direct 0.3 mg/dl (0-0.2); Bilirubin,Total 1.4 mg/dl (0.2-1.0); Total Protein 7.6 gm/dl (6.0-8.3); Uric Acid 5.9 mg/dl (2.6-7.2)
[2024-01-25] MEDS ORDERED: CARBOHYDRATES FOR HYPOGLYCEMIA PO PRN (00:47)
[2024-01-25] MEDS ORDERED: GLUCOSE 10 TAB/TUBE PO PRN (00:47)
[2024-01-25] MEDS ORDERED: GLUCOSE 40% GEL 15 GM TUBE PO PRN (00:47)
[2024-01-25] MEDS ORDERED: DEXTROSE 50% 50 ML SYRINGE IV PRN (00:47)
[2024-01-25] MEDS ORDERED: ONDANSETRON INJ 2 MG/ML 2 ML VIAL IV PRN (00:47)
[2024-01-25] MEDS ORDERED: GLUCAGON FOR INJ 1 MG VIAL SQ PRN (00:47)
[2024-01-25] MEDS ORDERED: ACETAMINOPHEN 325 MG TAB PO PRN (00:47)
[2024-01-25] MEDS: VANCOMYCIN HCL 1,750 MG in SODIUM CHLORIDE 0.9% 500 ML IV ONE (01:08)
[2024-01-25] MEDS: COLCHICINE 0.6 MG TAB PO ONE (01:09)
--- NOTE | 2024-01-25 01:31 | CT Scan Report ---
Exam(s): CT LEFT ANKLE Without Contrast EXAM: CT Left Lower Extremity Without Intravenous Contrast, Ankle CLINICAL HISTORY: Reason for exam: abnormal US. TECHNIQUE: Axial computed tomography images of the left ankle without intravenous contrast. CTDI is 24.91 mGy and DLP is 457.26 mGy-cm. Automated exposure control was utilized for the study. A dose lowering technique was utilized adhering to the principles of ALARA. 3D reconstructed images were created and reviewed. COMPARISON: Left ankle radiographs 01/24/24 FINDINGS: Bones are osteopenic. There is chronic remodeling of the medial and lateral malleoli suggesting old injury. Similarly, corticated ossicle in the distribution of the deltoid ligament is consistent with a remote avulsion fracture. There is no acute fracture or dislocation. Ankle joint is congruent. Talar dome is intact. Subtalar joint is normal. There is mild posterior calcaneal enthesopathy. There is circumferential edema and swelling of the soft tissues. IMPRESSION: 1. Diffuse soft tissue edema and swelling. Correlate for cellulitis. 2. No acute osseous findings. Electronically signed by: Marine Parra M.D. 01/25/24 01:30 AM
[2024-01-25] MEDS: CEFEPIME 2,000 MG in SYRINGE 0 ML IV SCH (01:40)
[2024-01-25] MEDS: LEVOTHYROXINE SODIUM 25 MCG TABLET PO SCH (05:22)
[2024-01-25] MEDS: ENOXAPARIN INJ 40 MG/0.4 ML SYR SQ SCH (05:22)
[2024-01-25 06:35] LABS: Albumin Level 3.3 gm/dl (3.4-5.0); BUN Creatinine Ratio 29.9 (10-20); Calcium 8.5 mg/dl (8.6-10.3); Creatinine Clr Calc Pharmacy 59.1 ml/min; Est GFR (African American) 93.2 ml/min; Est GFR (Non-African American) 80.4 ml/min; Phosphorus 2.6 mg/dl (2.5-4.9); Potassium 3.4 mmol/L (3.5-5.1)
[2024-01-25 06:36] LABS: Basophils # (auto) 0.03 K/uL (0.00-0.20); Basophils % (auto) 0.3 %; Eosinophils # (auto) 0.25 K/uL (0.00-0.50); Eosinophils % (auto) 2.8 %; Hematocrit (blood only) 33.5 % (42.0-52.0); Hemoglobin 11.3 g/dl (14.0-18.0); Immature Granulocytes # (auto) 0.09 K/uL (0.01-0.20); Lymphocytes # (auto) 1.82 K/uL (1.20-3.40); Lymphocytes % (auto) 20.7 %; Mean Corpuscular Hemoglobin 30.7 pg (25.0-34.0); Mean Corpuscular Hgb Conc 33.7 g/dL (32.0-36.0); Mean Platelet Volume 9.7 fL (9.4-12.4); Monocytes # (auto) 0.96 K/uL (0.11-0.59); Monocytes % (auto) 10.9 %; Neutrophils # (auto) 5.65 K/uL (1.40-6.50); Neutrophils % (auto) 64.3 %; Platelet Count 171 K/uL (130-400); RDW Coefficient of Variation 12.2 % (11.5-14.5); RDW Standard Deviation 40.8 fL (36.4-46.3); Red Blood Count 3.68 M/uL (4.70-6.10)
--- NOTE | 2024-01-25 07:47 | XRay Report ---
LEFT ANKLE 3 VIEWS CLINICAL HISTORY: Left ankle swelling and erythema. FINDINGS: 3 views of the left ankle are compared to study dated 07/26/2023. The skeletal structures ar e osteopenic. No fracture is identified. The ankle mortise is intact. There are tiny dorsal and plant ar heel spurs. No joint effusion is identified. Soft tissue edema is present around the ankle. IMPRESSION: Soft tissue swelling with no acute bony abnormality identified. Electronically signed by: Alverto Jraa M.D. 01/25/2024 7:44 AM
[2024-01-25] MEDS: POTASSIUM CHLORIDE CRTAB 20 MEQ TABCR PO ONE (08:17)
[2024-01-25] MEDS: VERAPAMIL HCL 180 MG TABCR PO SCH (08:18)
[2024-01-25] MEDS: OXYBUTYNIN CHLORIDE XL 5 MG TABCR PO SCH (08:18)
[2024-01-25] MEDS: COLCHICINE 0.6 MG TAB PO SCH (08:18)
[2024-01-25] MEDS: ASPIRIN 81 MG ECTAB PO SCH (08:18)
[2024-01-25] MEDS: INSULIN ASPART PER UNIT CHARGE SC SCH (08:28)
[2024-01-25] MEDS ORDERED: COLCHICINE 0.6 MG TAB PO SCH (09:00)
--- NOTE | 2024-01-25 09:39 | Pharmacy Report ---
Pharmacy PK ABX Note - Date of Service January 25, 2024 - Assessment and Plan Assessment 83 year old M receiving vancomycin and cefepime for SSTI. Presenting with swelling/pain in left foot and ankle that started after his recent hospitalization 01/18-01/20. Previously on cefdinir for UTI. Blood cultures pending. Plan Vancomycin * Loading dose: 1750 mg x 1 (ED) * Maintenance dose: 1000 mg iv q 18 hr * Regimen is predicted to achieve target AUC/DELMA of 400-600 mg/L.hr * Plan to obtain a vancomycin level if continued >48 hours or sooner if renal function changes. Pharmacy will continue to follow and will adjust dose/frequency as necessary. Thank you. Pharmacy has transitioned to AUC monitoring for vancomycin. AUC/DELMA is the preferred PK/PD target and is associated with decreased risk of nephrotoxicity compared to traditional trough targets.
--- NOTE | 2024-01-25 12:42 | Discharge Summary ---
Date of Service January 25, 2024 Admission HPI Per Admitting Provider The patient is an 83-year-old male with a past medical history including sepsis due to UTI, hyperbilirubinemia, bladder cancer, hypertension, TIA, history of CVA, carotid stenosis, hypothyroidism, diabetes mellitus and history of hypertensive crisis. Patient was most recently admitted to [facility] from 01/18-01/21/2024 for sepsis due to urinary tract infection, and was discharged on and continues to take cefdinir. Patient presents to the emergency department with significant left lower extremity cellulitis and swelling of dorsum of left foot and ankle, along with severe pain, in spite of being on cefdinir. Admission Exam Per Admitting Provider The patient is awake, alert and oriented 3, well developed and well nourished, normocephalic and atraumatic, lying in bed and in no acute distress. HEENT--PERRL, EOMI, mucous membranes and oropharynx normal Neck--supple. No JVD. No bruits. Thyroid normal, trachea midline, no adenopathy . Heart--normal S1 and S2. No murmurs, rubs or gallops. Lungs--clear bilaterally, no respiratory distress, no accessory muscle use. Abdomen--normal bowel sounds and soft. Nontender. Nondistended, no hernias or masses, no organomegaly. Extremities--right lower extremity is normal. Left foot and ankle painful to light touch, mild erythema, 2+ edema and restricted movement. Dermatologic--normal except for left foot and ankle Neurologic--cranial nerves II through XII grossly intact. Rheumatologic--normal range of motion except for left foot and ankle Psychiatric--normal affect. Principal Diagnosis left great toe/foot gout flare Discharge Exam Constitutional: well appearing, no acute distress HEENT: normocephalic, no conjunctival injection CV: regular rhythm, regular rate, no murmur Respiratory: Clear to auscultation bilaterally. No rhonchi, wheezes, or crackles. No increased work of breathing MSK: no gross deformities noted Skin: warm, dry; edema of left foot note with minimal erythema. Pain upon palpation of left foot with greatest intensity at left great toe MTP Neuro: alert, oriented, no FND noted Discharge Data Allergies Allergy/AdvReac Type Severity Reaction Status Date / Time No Known Allergies Allergy Mild NONE Verified 01/24/24 21:27 Consultations 01/24/24 23:08 ED Decision to Admit Stat Ordered Studies 01/24/24 19:15 US venous doppler LE LT Stat FINDINGS/IMPRESSION: Currently there is normal compressibility of the deep venous system from the common femoral vein through the proximal calf veins. Vascular structure is seen superior to left foot measuring 2.3 x 0.7 x 1.7 cm with surrounding edema. Findings are nonspecific, clinical correlation is recommended and continued follow-up and/or tissue sampling can be performed. 01/24/24 23:57 CT ankle LT wo con Stat IMPRESSION: 1. Diffuse soft tissue edema and swelling. Correlate for cellulitis. 2. No acute osseous findings. Hospital Course (1) Gout: Pt is a 83 yo male with PMH of HTN, DM, bladder cancer, and recent UTI requiring hospitalization presenting d/t left foot pain. Gout flare - pt w/o hx of gout; however, exam and presentation consistent with gout dx - left foot/ankle xray and LE CT showing soft tissue edema w/o fracture or bony abnormalities; left LE doppler neg for DVT - no leukocytosis; uric acid 5.9 - pt covered for cellulitis with vanco and cefepime; no need for further antibiotic coverage - will tx gout with colchicine 0.6mg BID until resolution of symptoms + 48 hrs; recommend close f/u with PCP to ensure resolution of flare- would consider NSAID use if colchicine ineffective - recommend uric acid level once acute flare resolves UTI- resolved - continue previously prescribed cefdinir to complete course Dispo: home Code: full VTE ppx: lovenox (2) UTI (urinary tract infection): Total Time Total Time Spent Total Time Spent (In Minutes): as per attending attestation Discharge Plan Discharge Items Patient Disposition: Home - Self-Care Reason For Visit: LLE CELLULITIS, POSSIBLE GOUT FLAIR Discharge Diagnosis: gout Condition on Discharge: Good Activity: Per Instructions section Non-emergency contact: Primary Care Provider Call non-emergency contact if: you have any medication questions, your symptoms worsen and your pain is not controlled Follow-up/Referrals: Delbert Guzmán MD [Primary Care Provider] - 01/31/24 2:25 pm (f/u gout flair in 1 week) Diet: Carb Consistent or DM2 Addtl Attending Provider Instructions: You were admitted to the hospital for left foot pain and swelling. Multiple xrays and a CT scan were done of your foot, ankle, and lower extremity were performed which showed swelling but no fracture or break. An ultrasound was pe rformed to look for blood clots of which there were none found. Due to the acuity and nature of your symptoms, it is believed that you are experiencing a gout flare. It is important that you take the prescribed medication to help treat this flare and follow up with your PCP to ensure resolution. You may also require follow up blood work to check your uric acid level. A discharge summary will be sent to your primary care physician to ensure continuity of care. Please bring this discharge summary with you to your next office appointment so that your provider can review it at that time. Medications: Your medication list has been reviewed and reconciled upon discharge to ensure accuracy and continuity of care. An updated list of all your medications is included with your hospital discharge paperwork. Please review this list closely and make note of any changes to your medications. - You should continue to take colchicine, an anti-inflammatory, twice per day until 48 hours after resolution of your symptoms. Follow up appointments: - Make a follow up appointment with your PCP within the next week to ensure that your gout flare has resolved. It is very important that you follow up with them shortly after discharge from the hospital. - Keep all of your follow up appointments as already scheduled. If you cannot make an appointment, notify your provider. CONTACT YOUR PRIMARY CARE PROVIDER if you experience any of the following: - Difficulty following your treatment plan - Difficulty taking any of your medications CALL 911 OR GO TO THE EMERGENCY DEPARTMENT if you experience any of the following: - Sudden, severe abdominal pain or nausea/vomiting - Severe chest pain or chest pain that radiates to your jaw or arm - Sudden, severe shortness of breath or difficulty breathing Pending Studies at Discharge: No Stand-Alone Forms: My [facility], Important Visit Information Medications and DC Order Prescriptions: New colchicine [Colcrys] 0.6 mg Tablet 0.6 mg PO BID Qty: 30 0RF Continued verapamil 180 mg tablet extended release 180 mg PO QAM levothyroxine 25 mcg tablet 25 mcg PO DAILYBB metformin 500 mg tablet 1,000 mg PO BID atorvastatin 20 mg tablet 20 mg PO HS oxybutynin chloride 10 mg tablet extended release 24hr 10 mg PO QAM cefdinir 300 mg capsule 300 mg PO BID Qty: 14 0RF Rx Instructions: STARTED 01/21/24 FOR 7 DAYS aspirin 81 mg Tablet,Delayed Release (Dr/Ec) 81 mg PO DAILY Discharge Orders: Discharge Order (Routine); Ordered 01/25/24 Ordered By: Macey Vallecillo/Other Patient Handouts: What Is Gout, Treating Gout Attacks, Eating to Prevent Gout Admission Data Admit Date/Time: 01/24/24 23:55 Attending Provider: Peterson Pelayo Admit Provider: Lucius Garrett Primary Care Provider: Delbert Guzmán Other Providers: Lucius Garrett Other Interventions: Discharge Summary Assessment (RN) Last Done: 01/25/24 13:10 Supervising Physician Co-Signing Physician Notes ATTESTATION I also saw the patient and confirmed walker portions of the history and exam. I agree with the impression and plan in the resident documentation, and as summarized below. Upon our midmorning rounds, the patient is feeling much improved. He is anticipating going home. His is at bedside. EXAM 139/65, 67, 16, 36.7, 95% on room air Pleasant alert. No distress appreciated. The left foot is mildly erythematous, but reportedly markedly improved compared to presentation. He has significant tenderness at the first MTP joint. DATA Labs WBC 8.8, hemoglobin 11.3 Sodium 136, potassium 3.4, BUN 26, creatinine 0.7 Imaging Venous Doppler of the left lower extremity was negative for DVT X-ray of the left foot and ankle negative for bony injury/fracture CT scanning of the left foot demonstrate soft tissue edema Micro Blood cultures were drawn 01/24/2024 and are pending. IMPRESSION & PLAN Left foot swelling, gout Patient had marked improvement with colchicine; exam is most consistent with gout, though did discuss possibility of cellulitis. With patient's marked improvement, he was looking forward to discharge. We discussed signs and symptoms for which to monitor. He will continue his outpatient antibiotic for which he was on for the UTI Recommend repeat uric acid once acute flare has subsided Additional per resident documentation Resident Activity Tracking Resident Involvement: Resident Care Provided Care Provided: Adult Hospital Medicine
[2024-01-25] MEDS ORDERED: VANCOMYCIN HCL 1,000 MG in SODIUM CHLORIDE 0.9% 250 ML IV SCH ×3 (16:00)
[2024-01-25] MEDS ORDERED: ATORVASTATIN 20 MG TAB PO SCH (21:00)
== END 2024-01-25 14:28 | disposition home or self-care (01) | DRG 554 ==
LOC: ED 15:34 → 3N 23:55 → SUATTDRO 23:55 → INTOOBSV 23:55 → 3N 01-25 00:13
DX: E11.65 Type 2 diabetes mellitus with hyperglycemia; M10.9 Gout, unspecified; L03.116 Cellulitis of left lower limb; Z79.84 Long term (current) use of oral hypoglycemic drugs; Z79.890 Hormone replacement therapy; N39.0 Urinary tract infection, site not specified; R60.0 Localized edema; E03.9 Hypothyroidism, unspecified; Z79.82 Long term (current) use of aspirin; Z86.73 Personal history of transient ischemic attack (TIA), and cerebral infarction without residual deficits; I10 Essential (primary) hypertension; C67.9 Malignant neoplasm of bladder, unspecified

== ENCOUNTER 2024-07-09 14:08 | Inpatient (IN) ==
[2024-07-09] MEDS: OPTIRAY 320 125ml IV ONE (14:28)
[2024-07-09] MEDS ORDERED: No Aspirin within 24hrs of THROMBOLYTIC-Stroke PO SCH (14:30)
--- NOTE | 2024-07-09 14:40 | CT Scan Report ---
CT OF THE HEAD WITHOUT CONTRAST CLINICAL HISTORY: Neuro deficit, acute, stroke suspected COMPARISON STUDY: MRI of the brain and head CT April 15, 2021. TECHNIQUE: Helical axial images of the head were obtained without IV contrast. Automated exposure con trol was utilized for the study. A dose lowering technique was utilized adhering to the principles o f ALARA. FINDINGS: No acute intracranial hemorrhage, midline shift or mass effect is present. The ventricular system is stable. White matter hypodensities are unchanged and favor small vessel disease. There is m ild atrophy. The basal cisterns are patent. No extra-axial collections are present. There are no find ings to suggest acute dural sinus thrombosis or acute territorial infarct. No significant calvarial a bnormalities are present. Visualized portions of the sinuses and mastoid air cells are clear. IMPRESSION: No acute intracranial findings. No change in appearance of the brain. ACT 112: Negative or not required by law. Electronically signed by: Jaden Acevedo M.D. 07/09/2024 2:38 PM
--- NOTE | 2024-07-09 14:45 | CT Scan Report ---
CT angio head w con CLINICAL HISTORY: l arm weak TECHNIQUE: CT angiography of the head was performed following intravenous administration of iodinated contrast. Coronal and sagittal MIPS were obtained from the axial data set and were submitted for rev iew. Automated dose lowering techniques and/or adjustment according to patient size were utilized fo r this examination. All measurements were calculated based on NASCET criteria. Comparison: None available at the time of this dictation. FINDINGS: CTA Head: The anterior and posterior cerebral circulations are patent. origin of the right pos terior cerebral artery is seen. IMPRESSION: No occlusion, hemodynamically significant stenosis, aneurysm, dissection, or arteriovenous malformati on in the major intracranial arteries. Assessment of stenosis of the internal carotid arteries is based on NASCET criteria. ACT 112: Negative or not required by law. Electronically signed by: Miko Mcduffie M.D. 07/09/2024 2:43 PM
[2024-07-09] MEDS: LABETALOL HCL IV 5 MG/ML 20ML IV STA (14:48)
[2024-07-09 14:58] LABS: Hematocrit (blood only) 37.6 % (42.0-52.0); Hemoglobin 12.8 g/dl (14.0-18.0); Mean Corpuscular Hemoglobin 30.7 pg (25.0-34.0); Mean Corpuscular Volume 90.2 fL (80.0-100.0); Mean Platelet Volume 9.3 fL (9.4-12.4); Platelet Count 165 K/uL (130-400); RDW Coefficient of Variation 12.2 % (11.5-14.5); RDW Standard Deviation 40.1 fL (36.4-46.3); Red Blood Count 4.17 M/uL (4.70-6.10); White Blood Count 6.51 K/ul (4.8-10.8)
[2024-07-09 14:59] LABS: iSTAT Hemoglobin 13.6 g/dl (14.0-18.0); iSTAT Ionized Calcium 1.17 mmol/l (1.12-1.32)
--- NOTE | 2024-07-09 15:04 | Emergency Department Note ---
Impression & Plan Acute CVA (cerebrovascular accident), HTN (hypertension), Arm weakness ED Provider Note NAME: TC JORGE AGE: 83 SEX: M : 1940 ARRIVES VIA: Walk-In INFORMANT: Patient ED PROVIDER(S): Terence Tyler DO CHIEF COMPLAINT: Left upper extremity weakness HPI: Patient is an 83-year-old male with a past medical history of occipital neuralgia, diabetes, kidney disease, carotid stenosis, TIA/CVA who presents to the ER for sudden onset of left upper extremity weakness. This occurred around 145. confirms a story that he was sitting at the table and he had trouble moving his left arm. He went out to go to the bathroom and he fell in the bathroom. Patient mitts to a mild headache. No change or loss of vision. No chest pain or shortness of breath. No nausea, vomiting or diarrhea. No dysuria, urgency or frequency. No real pain from the fall. Denies any blood thinners. ADDITIONAL HISTORY OBTAINED: Per HPI Chronic Medical/Social Conditions Affecting Care: Per HPI PAST MEDICAL HISTORY:See Below PAST SURGICAL HISTORY:See Below FAMILY HISTORY:See Below SOCIAL HISTORY:See Below HOME MEDICATIONS:See Below ALLERGIES:See Below VITALS:See Below PHYSICAL EXAMINATION: GENERAL: Sitting up in bed, alert, well appearing, well nourished, no distress, non-toxic EYE EXAM: normal conjunctiva. PERRL and EOM's grossly intact. OROPHARYNX: no exudate, no erythema, lips, buccal mucosa, and tongue normal and mucous membranes are moist NECK: supple, no nuchal rigidity, no adenopathy, non-tender LUNGS: Clear to auscultation. Normal chest wall mechanics HEART: no murmurs, S1 normal and S2 normal ABDOMEN: abdomen soft, non-tender, normo-active bowel sounds, no masses, no rebound or guarding. BACK: Back is symmetrical on inspection and there is no deformity, no midline tenderness, no CVA tenderness. SKIN: no rashes and no bruising UPPER EXTREMITIES: upper extremities are grossly normal. LOWER EXTREMITIES: No pitting edema. NEURO EXAM: Normal sensorium, cranial nerves II-XII intact, normal speech, limited grasp on the left upper extremity as well as flexion extension at the wrist elbow and shoulder. No weakness of the entire right side. No weakness in the left lower extremity. Positive drift. Unable to perform [id number]. MEDICAL DECISION MAKING: Patient is an 83-year-old male who presents to the ER for the above-stated complaint. Stroke alert was called in triage per nursing staff. IVs were established medicos obtained. He was taken emergently to CT scan. I evaluated him in the scanner. He was hypertensive with a deficit of the left upper extremity. Chart was reviewed. Discussed with her she telestroke. I discussed with the pharmacist and we had TNK ready. Labs showed no significant leukocytosis or anemia. INR unremarkable. BMP with mild hyponatremia at 133. Glucose mildly up at 170. LFTs bilirubin was unremarkable. Patient was given IV labetalol as blood pressures were above 200 initially as we were preparing to give TNK. He was evaluated by telestroke and he declined TNK after discussing the risk and benefits. We allowed for permissive hypertensive time. He was discussed with the hospitalist admitted for further workup. Consults/Care Managements Discussions: Per [facility] Triage Nursing notes reviewed. Limited review of prior medical records performed Vital Signs: reviewed and remarkable for no significant abnormalities Differential diagnosis: Differential Diagnosis includes but is not limited to ischemic Stroke, hemorrhagic stroke, bells palsy, mass, neoplasm, migraine headache, seizure, subarachnoid hemorrhage, TIA, and transient global amnesia. ER treatment provided: See below Diagnostics interpreted by me include EKG and cardiac monitoring as listed below: -Cardiac Monitoring: An order was placed for continuous cardiac monitoring. The monitor shows a rate of 77 with sinus rhythm. -ECG: Sinus rhythm rate 68 Normal axis No PVCs QTc 427 -Laboratory studies:Interpreted by me as stated above in [facility] and shown below. Imaging studies: Xrays: As interpreted by me: Portable AP upright 1 view of the chest shows no focal Lutrate CTs show: CTA of the head and neck shows stenosis of the right ICA at 90% and left ICA at 60% Procedures:none Critical Care: I have personally spent 32 minutes of critical care time in the direct management of this patient. This includes bedside care, interpretation of diagnostic studies, and testing, discussion with consultants, patient, and family members, and other required patient management activities. This 32 minutes is in excess of all separately billable procedures. Past Med/Surg History Problem List (Updated 07/09/24 @ 19:05 by Terence Tyler DO) Arm weakness (Acute) HTN (hypertension) (Acute) Acute CVA (cerebrovascular accident) (Acute) Left arm weakness UTI (urinary tract infection) Gout Hyperglycemia due to type 2 diabetes mellitus Cellulitis of left lower extremity Hyperglycemia (Acute) Acute foot pain (Acute) Cellulitis (Acute) Sepsis due to urinary tract infection No significant past surgical history Hypertension TIA (transient ischemic attack) Dizziness (Acute) Numbness and tingling of right arm (Acute) Stroke-like symptoms (Acute) History of CVA (cerebrovascular accident) (Acute) Carotid stenosis Vertigo Hypothyroid Hypercholesteremia Diabetes Kidney disease Kidney disease (Chronic) Urinary problem (Chronic) Stomach problems (Chronic) Cardiac enzymes elevated (Acute) Headache (Acute) Hypertensive crisis (Acute) Left ear injury (Acute) Left ear injury (Acute) Occipital neuralgia (Acute) Occipital neuralgia (Acute) Upper extremity neuropathy (Acute 10/06/13) Medical History (Updated 07/09/24 @ 19:05 by Terence Tyler DO) Total bilirubin, elevated Urinary frequency CVA (cerebral vascular accident) 2012 Family History Mother , age 84 of uncertain cause Hypertension Father , age 64 with tuberculosis Tuberculosis Social History Smoking Status: Never smoker Tobacco Type: Cigarettes Hx Alcohol Use: Yes Alcohol type: wine Alcohol Intake Frequency Comment: 1 glass with dinner 4 times per week Hx Substance Use: No Preferred Language: Fijian Communication Ability: Effective Manager Fiber Required: No Beliefs That Will Affect Care: None Current Living Situation: Spouse Current Living Situation Comment: Lives with at the [facility]. 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 Feels Safe at Home: Yes Assistive Devices: Cane Allergies Allergies Allergy/AdvReac Type Severity Reaction Status Date / Time No Known Allergies Allergy Mild NONE Verified 07/09/24 15:12 Home Meds Home Medications Medication Instructions Recorded Confirmed levothyroxine 25 mcg tablet 25 mcg PO DAILYBB 08/19/19 07/09/24 verapamil 180 mg tablet,extended 180 mg PO QAM 08/19/19 07/09/24 release atorvastatin 20 mg tablet 20 mg PO HS 04/15/21 07/09/24 metformin 500 mg tablet 1,000 mg PO BID 04/15/21 07/09/24 oxybutynin chloride 10 mg 10 mg PO QAM 01/19/24 07/09/24 tablet,extended release 24 hr aspirin 81 mg tablet,delayed 81 mg PO DAILY 01/24/24 07/09/24 release Results & Data (ED) Vital Signs Vital Signs - 24 hr 07/09/24 14:18 07/09/24 14:36 07/09/24 14:36 Temperature 36.6 C Temperature Source Temporal Artery Scan Pulse Rate 64 74 Pulse Rate [Apical] 72 Respiratory Rate 18 24 24 Respiratory Effort / Characteristics Non-Labored Spontaneous Respiratory Depth Normal Respiratory Pattern Regular Blood Pressure 200/78 H Blood Pressure [Left Arm] 178/82 H Blood Pressure Mean 118 Blood Pressure Mean [Left Arm] 114 Blood Pressure Position [Left Arm] Pulse Oximetry 96 94 97 Oxygen Delivery Method Room Air Room Air Room Air Sepsis Recent Fever Within 48 Hours No Sepsis New/Unexplained Change in Mental Status No Sepsis Action Taken by Nursing No Action Required 07/09/24 14:39 07/09/24 14:48 07/09/24 15:05 Temperature Temperature Source Pulse Rate 70 70 70 Pulse Rate [Apical] Respiratory Rate Respiratory Effort / Characteristics Respiratory Depth Respiratory Pattern Blood Pressure 167/82 H 178/84 H Blood Pressure [Left Arm] Blood Pressure Mean Blood Pressure Mean [Left Arm] Blood Pressure Position [Left Arm] Pulse Oximetry Oxygen Delivery Method Sepsis Recent Fever Within 48 Hours Sepsis New/Unexplained Change in Mental Status Sepsis Action Taken by Nursing 07/09/24 15:15 07/09/24 15:23 07/09/24 15:27 Temperature Temperature Source Pulse Rate 65 Pulse Rate [Apical] 65 67 Respiratory Rate 22 23 22 Respiratory Effort / Characteristics Non-Labored Spontaneous Respiratory Depth Normal Respiratory Pattern Regular Blood Pressure Blood Pressure [Left Arm] 165/81 H 153/78 H Blood Pressure Mean Blood Pressure Mean [Left Arm] 109 103 Blood Pressure Position [Left Arm] Pulse Oximetry 93 94 95 Oxygen Delivery Method Room Air Room Air Room Air Sepsis Recent Fever Within 48 Hours Sepsis New/Unexplained Change in Mental Status Sepsis Action Taken by Nursing 07/09/24 15:30 07/09/24 15:30 07/09/24 16:47 Temperature Temperature Source Pulse Rate 64 Pulse Rate [Apical] 74 Respiratory Rate 23 Respiratory Effort / Characteristics Non-Labored Spontaneous Respiratory Depth Normal Respiratory Pattern Regular Blood Pressure 169/78 H Blood Pressure [Left Arm] 180/100 H Blood Pressure Mean 129 Blood Pressure Mean [Left Arm] 126 Blood Pressure Position [Left Arm] Pulse Oximetry 94 98 Oxygen Delivery Method Room Air Room Air Sepsis Recent Fever Within 48 Hours Sepsis New/Unexplained Change in Mental Status Sepsis Action Taken by Nursing 07/09/24 16:57 07/09/24 18:53 Temperature Temperature Source Pulse Rate 78 Pulse Rate [Apical] 74 Respiratory Rate 21 Respiratory Effort / Characteristics Respiratory Depth Respiratory Pattern Blood Pressure Blood Pressure [Left Arm] 198/96 H Blood Pressure Mean Blood Pressure Mean [Left Arm] 130 Blood Pressure Position [Left Arm] Semi-fowlers Pulse Oximetry 98 Oxygen Delivery Method Room Air Sepsis Recent Fever Within 48 Hours Sepsis New/Unexplained Change in Mental Status Sepsis Action Taken by Nursing Laboratory Data 07/09/24 14:35 07/09/24 14:35 Lab Results 07/09/24 07/09/24 07/09/24 Range/Units 14:35 14:39 14:46 WBC 6.51 (4.8-10.8) K/ul RBC 4.17 L (4.70-6.10) M/uL Hgb 12.8 L (14.0-18.0) g/dl POC Hgb 13.6 L (14.0-18.0) g/dl Hct 37.6 L (42.0-52.0) % POC Hct 40 L (42-52) % MCV 90.2 (80.0-100.0) fL MCH 30.7 (25.0-34.0) pg MCHC 34.0 (32.0-36.0) g/dL RDW Std Deviation 40.1 (36.4-46.3) fL RDW Coeff of Parvin 12.2 (11.5-14.5) % Plt Count 165 (130-400) K/uL MPV 9.3 L (9.4-12.4) fL PT 10.9 (9.0-12.0) Seconds INR 1.0 (0.9-1.1) APTT 27 (21-31) Seconds PTT Ratio 1.0 POC Sodium 135 (135-144) mmol/L Sodium 133 L (136-145) mmol/L POC Potassium 4.0 (3.3-5.0) mmol/L Potassium 4.0 (3.5-5.1) mmol/L POC Chloride 101 (101-112) mmol/L Chloride 102 (98-107) mmol/L Carbon Dioxide 24 (21-32) mmol/L POC Total CO2 23 L (24-31) mmol/L Anion Gap 7 (3-11) POC Anion Gap 16.0 (16-25) mmol/L POC BUN 16 (7-18) mg/dl BUN 17 (6-23) mg/dl Creatinine 1.02 (0.6-1.4) mg/dl POC Creatinine 1.0 (0.6-1.3) mg/dl Est Cr Clr Drug Dosing 54.0 ml/min Est GFR ( Amer) 79.0 ml/min Est GFR (Non-Af Amer) 68.1 ml/min BUN/Creatinine Ratio 16.7 (10-20) Glucose 179 H (70-99(Fasting)) mg/dl POC Glucose 200 H (70-99) mg/dl POC Glucose (other) 187 H (70-99) mg/dl Calcium 8.5 L (8.6-10.3) mg/dl POC Ioniz Calcium Archie 1.17 (1.12-1.32) mmol/l Magnesium 1.8 (1.7-2.4) mg/dl Total Bilirubin 0.5 (0.2-1.0) mg/dl AST 39 (13-39) U/L ALT 63 H (7-52) U/L Alkaline Phosphatase 60 (34-104) U/L Total Protein 6.1 (6.0-8.3) gm/dl Albumin 3.6 (3.4-5.0) gm/dl Globulin 2.5 (2.5-4.0) gm/dl Albumin/Globulin Ratio 1.4 (0.9-2) 07/09/24 07/09/24 Range/Units 16:59 18:31 WBC (4.8-10.8) K/ul RBC (4.70-6.10) M/uL Hgb (14.0-18.0) g/dl POC Hgb (14.0-18.0) g/dl Hct (42.0-52.0) % POC Hct (42-52) % MCV (80.0-100.0) fL MCH (25.0-34.0) pg MCHC (32.0-36.0) g/dL RDW Std Deviation (36.4-46.3) fL RDW Coeff of Parvin (11.5-14.5) % Plt Count (130-400) K/uL MPV (9.4-12.4) fL PT (9.0-12.0) Seconds INR (0.9-1.1) APTT (21-31) Seconds PTT Ratio POC Sodium (135-144) mmol/L Sodium (136-145) mmol/L POC Potassium (3.3-5.0) mmol/L Potassium (3.5-5.1) mmol/L POC Chloride (101-112) mmol/L Chloride (98-107) mmol/L Carbon Dioxide (21-32) mmol/L POC Total CO2 (24-31) mmol/L Anion Gap (3-11) POC Anion Gap (16-25) mmol/L POC BUN (7-18) mg/dl BUN (6-23) mg/dl Creatinine (0.6-1.4) mg/dl POC Creatinine (0.6-1.3) mg/dl Est Cr Clr Drug Dosing ml/min Est GFR ( Amer) ml/min Est GFR (Non-Af Amer) ml/min BUN/Creatinine Ratio (10-20) Glucose (70-99(Fasting)) mg/dl POC Glucose 252 H 157 H (70-99) mg/dl POC Glucose (other) (70-99) mg/dl Calcium (8.6-10.3) mg/dl POC Ioniz Calcium Archie (1.12-1.32) mmol/l Magnesium (1.7-2.4) mg/dl Total Bilirubin (0.2-1.0) mg/dl AST (13-39) U/L ALT (7-52) U/L Alkaline Phosphatase (34-104) U/L Total Protein (6.0-8.3) gm/dl Albumin (3.4-5.0) gm/dl Globulin (2.5-4.0) gm/dl Albumin/Globulin Ratio (0.9-2) Administered Medications Discontinued Medications Aspirin (Aspirin Chew 324 Mg) 81 mg PO NOW STA Stop: 07/09/24 15:05 Last Admin: 07/09/24 15:09 Dose: 81 mg Documented By: DHARA Atorvastatin Calcium (Atorvastatin 40 Mg Tab) 80 mg PO ONE ONE Stop: 07/09/24 15:48 Last Admin: 07/09/24 16:54 Dose: 80 mg Documented By: SANDY Clopidogrel Bisulfate (Clopidogrel Bisulfate 300 Mg Tab) 300 mg PO NOW STA Stop: 07/09/24 15:05 Last Admin: 07/09/24 15:09 Dose: 300 mg Documented By: DHARA Tenecteplase 19 mg/ Syringe 3.8 mls @ 45.6 mls/min IV NOW ONE; Protocol Stop: 07/09/24 14:39 Last Admin: 07/09/24 15:09 Dose: Not Given Documented By: DHARA Ioversol (Optiray 320 125ml) 120 ml IV ONCE ONE Stop: 07/09/24 14:29 Last Admin: 07/09/24 14:28 Dose: 120 ml Documented By: NIR Labetalol HCl (Labetalol Hcl Iv 5 Mg/Ml 20ml) 10 mg IV NOW STA Stop: 07/09/24 14:29 Last Admin: 07/09/24 14:48 Dose: 10 mg Documented By: DHARA Miscellaneous (Stat Iv/Im) 1 each N/A NOW STA Stop: 07/09/24 14:29 Last Admin: 07/09/24 15:10 Dose: Not Given Documented By: DHARA Sodium Chloride (Sodium Chloride 0.9% 10ml Flush) 20 ml IV NOW STA Stop: 07/09/24 14:29 Last Admin: 07/09/24 15:12 Dose: Not Given Documented By: DHARA Imaging Data Radiologist's Impression: Chest X-Ray 07/09/24 14:24 XR chest 1V portable CLINICAL HISTORY: stroke alert TECHNIQUE: Single frontal radiograph of the chest was obtained. Comparison: Comparison is made to chest radiograph 01/19/2024 FINDINGS: No lines and tubes are seen. Cardiomegaly is noted. The lungs are clear. No evidence of pleural effusion or pneumothorax. IMPRESSION: No acute chest disease. ACT 112: Negative or not required by law. Electronically signed by: Miko Mcduffie M.D. 07/09/2024 4:[address] 07/09/24 14:24 CT OF THE HEAD WITHOUT CONTRAST CLINICAL HISTORY: Neuro deficit, acute, stroke suspected COMPARISON STUDY: MRI of the brain and head CT April 15, 2021. TECHNIQUE: Helical axial images of the head were obtained without IV contrast. Automated exposure control was utilized for the study. A dose lowering technique was utilized adhering to the principles of ALARA. FINDINGS: No acute intracranial hemorrhage, midline shift or mass effect is present. The ventricular system is stable. White matter hypodensities are unchanged and favor small vessel disease. There is mild atrophy. The basal cisterns are patent. No extra-axial collections are present. There are no findings to suggest acute dural sinus thrombosis or acute territorial infarct. No significant calvarial abnormalities are present. Visualized portions of the sinuses and mastoid air cells are clear. IMPRESSION: No acute intracranial findings. No change in appearance of the brain. ACT 112: Negative or not required by law. Electronically signed by: Jaden Acevedo M.D. 07/09/2024 2:38 PM Neck CTA 07/09/24 14:25 CT angio neck with con CLINICAL HISTORY: 83 years-old Male with l arm weak. Acute stroke like symptoms COMPARISON STUDY: Head CT and CTA head studies of same day, CT neck 04/15/2021 TECHNIQUE: Following the IV administration of 120 mL of Optiray, CT angiogram of the neck was performed from the aortic arch to the skull base. Images are reviewed in the axial, sagittal, and coronal planes. 3-D MIPS images are created and assessed. IV contrast was administered without complication. All measurements were calculated based on NASCET criteria. A dose lowering technique was utilized adhering to the principles of ALARA. CT DOSE: 1505.6 mGy.cm FINDINGS: Mild atherosclerotic plaque noted within the thoracic aortic arch. Patency of the innominate and imaged subclavian arteries. The common carotid arteries are widely patent. Moderate mixed plaque of the carotid bulbs and proximal cervical segments of the internal carotid arteries. This results in approximately 60% stenosis of the proximal cervical segment left ICA which has progressed from prior. Additionally, there is now approximately 90% stenosis of the proximal right ICA on image 242. 3 mm focus of nonocclusive thrombus versus irregular atheromatous plaque within the distal right common carotid artery on image 201. Dominant left vertebral artery. Atheromatous plaque at the origin of the left vertebral artery results in at least 50% luminal narrowing. The left vertebral artery is dominant. Developmentally diminutive right vertebral artery. There is at least mild luminal narrowing at the origin of the right vertebral artery. Numerous opacified venous collaterals noted throughout the neck and left upper chest. No pneumothorax. Unremarkable thyroid. No pathologically enlarged lymph nodes identified. Mild polypoid mucosal thickening of the left maxillary sinus. Degenerative changes of the spine. IMPRESSION: 1. Progressive atherosclerotic plaque of the carotid bulbs now results in approximately 90% stenosis of the proximal right ICA and 60% stenosis on the left. 2. Unchanged appearance of the vertebral arteries. ACT 112: Negative or not required by law. The above report was generated using voice recognition software. It may contain grammatical, syntax or spelling errors. Electronically signed by: Gabe Graham M.D. 07/09/2024 3:04 PM Head CTA 07/09/24 14:26 CT angio head w con CLINICAL HISTORY: l arm weak TECHNIQUE: CT angiography of the head was performed following intravenous administration of iodinated contrast. Coronal and sagittal MIPS were obtained from the axial data set and were submitted for review. Automated dose lowering techniques and/or adjustment according to patient size were utilized for this examination. All measurements were calculated based on NASCET criteria. Comparison: None available at the time of this dictation. FINDINGS: CTA Head: The anterior and posterior cerebral circulations are patent. origin of the right posterior cerebral artery is seen. IMPRESSION: No occlusion, hemodynamically significant stenosis, aneurysm, dissection, or arteriovenous malformation in the major intracranial arteries. Assessment of stenosis of the internal carotid arteries is based on NASCET criteria. ACT 112: Negative or not required by law. Electronically signed by: Miko Mcduffie M.D. 07/09/2024 2:43 PM Discharge Plan Visit Data Chief Complaint: Fall Stated Complaint: FALL OFF TOILET, NUMBNESS DOWN L ARM ED Provider: Terence Tyler Discharge Problem: Acute CVA (cerebrovascular accident), HTN (hypertension), Arm weakness Discharge Instructions Interventions: ED Discharge Assessment Last Done: 07/09/24 19:04 Discharge Problem: HTN (hypertension) Qualifiers: Hypertension type: unspecified Qualified Code(s): I10 - Essential (primary) hypertension
--- NOTE | 2024-07-09 15:05 | CT Scan Report ---
CT angio neck with con CLINICAL HISTORY: 83 years-old Male with l arm weak. Acute stroke like symptoms COMPARISON STUDY: Head CT and CTA head studies of same day, CT neck 04/15/2021 TECHNIQUE: Following the IV administration of 120 mL of Optiray, CT angiogram of the neck was perform ed from the aortic arch to the skull base. Images are reviewed in the axial, sagittal, and coronal pl anes. 3-D MIPS images are created and assessed. IV contrast was administered without complication. Al l measurements were calculated based on NASCET criteria. A dose lowering technique was utilized adhe ring to the principles of ALARA. CT DOSE: 1505.6 mGy.cm FINDINGS: Mild atherosclerotic plaque noted within the thoracic aortic arch. Patency of the innominate and imag ed subclavian arteries. The common carotid arteries are widely patent. Moderate mixed plaque of the c arotid bulbs and proximal cervical segments of the internal carotid arteries. This results in approxi mately 60% stenosis of the proximal cervical segment left ICA which has progressed from prior. Additi onally, there is now approximately 90% stenosis of the proximal right ICA on image 242. 3 mm focus of nonocclusive thrombus versus irregular atheromatous plaque within the distal right common carotid ar jennifer on image 201. Dominant left vertebral artery. Atheromatous plaque at the origin of the left vertebral artery result s in at least 50% luminal narrowing. The left vertebral artery is dominant. Developmentally diminutiv e right vertebral artery. There is at least mild luminal narrowing at the origin of the right vertebr al artery. Numerous opacified venous collaterals noted throughout the neck and left upper chest. No pneumothorax. Unremarkable thyroid. No pathologically enlarged lymph nodes identified. Mild polypo id mucosal thickening of the left maxillary sinus. Degenerative changes of the spine. IMPRESSION: 1. Progressive atherosclerotic plaque of the carotid bulbs now results in approximately 90% stenosis of the proximal right ICA and 60% stenosis on the left. 2. Unchanged appearance of the vertebral arteries. ACT 112: Negative or not required by law. The above report was generated using voice recognition software. It may contain grammatical, syntax o r spelling errors. Electronically signed by: Gabe Graham M.D. 07/09/2024 3:04 PM
[2024-07-09] MEDS: ASPIRIN CHEW 324 MG PO STA (15:09)
[2024-07-09] MEDS: TENECTEPLASE 19 MG in SYRINGE 0 ML IV ONE (15:09)
[2024-07-09] MEDS: CLOPIDOGREL BISULFATE 300 MG TAB PO STA (15:09)
[2024-07-09] MEDS: STAT IV/IM STA (15:10)
[2024-07-09] MEDS: SODIUM CHLORIDE 0.9% 10ML FLUSH IV STA (15:12)
--- NOTE | 2024-07-09 15:18 | History & Physical Report ---
Date of Service July 09, 2024 Assessment & Plan (1) Left arm weakness: Plan: Left-sided weakness, suspected CVA Acute onset of left upper extremity weakness and numbness/tingling approximately 1:45 PM. With lower extremity weakness patient is unclear if this was unilateral or not. No leg weakness or sensory change at time of hospitalist admitting exam. Left upper extremity is improved but with some remaining drift at time of hospitalist exam CTA head/neck: No acute findings. There is progressive plaque of the carotid bulbs now with 90% stenosis of the proximal right ICA, 60% left ICA CThead: No acute findings Patient did receive Plavix load in the ER Was ordered TNKase, subsequently declined this on wrist/benefits discussion in the ER Continue statin, increase to atorvastatin 80 mg daily Permissive hypertension x 24 hours. Home antihypertensives held. Labetalol on-call to systolic goal of 200, then reduced to under 180 after 24 hours MRI pending Anticipate DAPT for at least 3 weeks. 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 No history of A-fib. Sinus on admission (2) Carotid stenosis: Plan: Bilateral carotid artery disease, symptomatic right ICA disease CTA with 90% proximal right ICA disease. Patient presented with left upper extremity weakness, consistent with symptomatic right carotid stenosis. Vascular consulted for evaluation for revascularization Patient continued on DAPT as noted above (3) Diabetes: Plan: Type II DM BSG 200 on admission Basal bolus insulin ordered on admission Metformin held Goal BSG [id number] (4) Hypertension: Plan: Hypertension Permissive hypertension for 24 hours Verapamil held, labetalol on-call Plan Hypothyroidism Synthroid continued DVT prophylaxis: Lovenox added after 24 hours, diet: Heart healthy Disposition: PCU CODE STATUS: Full code History of Present Illness Primary Care Provider: Delbert Guzmán MD Vernon is an 83-year-old male with history of type 2 diabetes, TIA, CVA, vertigo, hypothyroidism, CKD, occipital neuralgia who presents to the emergency department as a stroke alert who was normal when he woke up and went to the gym this morning however on attempting to eat lunch could not use his left arm/hand, and then attempted to go to the bathroom and fell due to weakness in his left leg. Was subsequently brought to the ER and was activated as a stroke alert. Per ER: 145 LUE weakness, +leg weakness. Declined TNKase Sx improved, now moving Telestroke --> plavix 300, DAPT 3 weeks, permissive HTN to goal 200. Per pt: Patient reports he has a history of a distant TIA with no residual deficits otherwise has not had a stroke and has no strength or sensory deficits at baseline. He was normal this morning when he went to the gym, returned and was eating lunch when he had difficulty using a spoon in his left hand which had become weak with some numbness. Patient felt off attempted to go to the bathroom but fell due to weakness in his legs. He is not sure if his legs felt weak bilaterally or chest on the left side. Came to the hospital as a stroke alert. Symptoms were gradually improving, no lower extremity strength or sensory deficits at time of ER admission. Does continue to have some left-sided drift and strength asymmetry. No facial asymmetry. No headache. No chest pain, chest pressure. No shortness of breath, dyspnea. He has not felt sick or had any cold-like symptoms prior to admission. No abdominal pain. No visual changes. No speech deficit or word finding difficulty. Declined TNKase after recess benefits discussion with ER and telestroke neurology Medical History: Reviewed Medications: Reviewed Surgical History: Reviewed Family history: Reviewed Allergies: Reviewed Social History: No tobacco use in 40 years. Rare social etoh Code Status: Full Allergies Allergy/AdvReac Type Severity Reaction Status Date / Time No Known Allergies Allergy Mild NONE Verified 07/09/24 15:12 Home Medications Medication Instructions Recorded Confirmed Type levothyroxine 25 mcg tablet 25 mcg PO DAILYBB 08/19/19 07/09/24 History verapamil 180 mg tablet,extended 180 mg PO QAM 08/19/19 07/09/24 History release atorvastatin 20 mg tablet 20 mg PO HS 04/15/21 07/09/24 History metformin 500 mg tablet 1,000 mg PO BID 04/15/21 07/09/24 History oxybutynin chloride 10 mg 10 mg PO QAM 01/19/24 07/09/24 History tablet,extended release 24 hr aspirin 81 mg tablet,delayed 81 mg PO DAILY 01/24/24 07/09/24 History release Past Med/Surg History Problem List (Updated 07/09/24 @ 15:52 by Shailesh Rossi MD) Left arm weakness UTI (urinary tract infection) Gout Hyperglycemia due to type 2 diabetes mellitus Cellulitis of left lower extremity Hyperglycemia (Acute) Acute foot pain (Acute) Cellulitis (Acute) Sepsis due to urinary tract infection No significant past surgical history Hypertension TIA (transient ischemic attack) Dizziness (Acute) Numbness and tingling of right arm (Acute) Stroke-like symptoms (Acute) History of CVA (cerebrovascular accident) (Acute) Carotid stenosis Vertigo Hypothyroid Hypercholesteremia Diabetes Kidney disease Kidney disease (Chronic) Urinary problem (Chronic) Stomach problems (Chronic) Cardiac enzymes elevated (Acute) Headache (Acute) Hypertensive crisis (Acute) Left ear injury (Acute) Left ear injury (Acute) Occipital neuralgia (Acute) Occipital neuralgia (Acute) Upper extremity neuropathy (Acute 10/06/13) Medical History (Updated 07/09/24 @ 15:52 by Shailesh Rossi MD) Total bilirubin, elevated Urinary frequency CVA (cerebral vascular accident) 2012 Family History Mother , age 84 of uncertain cause Hypertension Father , age 64 with tuberculosis Tuberculosis Social History Smoking Status: Never smoker Tobacco Type: Cigarettes Hx Alcohol Use: Yes Alcohol type: wine Alcohol Intake Frequency Comment: 1 glass with dinner 4 times per week Hx Substance Use: No Preferred Language: Spanish Communication Ability: Effective 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 NAD. Cooperative. HEENT: Atraumatic, normocephalic. vision/hearing grossly intact Pulm: CTAB A&P. -wheezes, -rales, -rhonchi. Symmetrical chest rise. No increased work of breathing. No respiratory distress. Cardiac: RRR, -mrg. Radial pulses intact and symmetrical. Abdominal: Nontender, nondistended, soft. BS present. CRANIAL NERVES: II: Pupils equal and reactive, no relative afferent pupillary defect, no VF cuts III, IV, : EOM intact, no gaze preference or deviation, no nystagmus. 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 LUE: 5/5 Shoulder internal rotation, external rotation, flexion, extension, abduction, adduction 5/5 Elbow flexion/extension, wrist flexi on/extension 5/5 sex crimes detective strength RLE: 5/5 to hip flexion, ankle dorsiflexion/p lantarflexion LLE: 5/5 to hip flexion, ankle dorsiflexion/p lantarflexion Results & Data Results & Data Vital Signs (Past 12 Hours) Vital Signs Temp Pulse Pulse Resp BP BP Pulse Ox 07/09/24 15:15 65 22 165/81 H 93 07/09/24 15:05 70 178/84 H 07/09/24 14:48 70 167/82 H 07/09/24 14:39 70 07/09/24 14:36 74 24 97 07/09/24 14:36 72 24 178/82 H 94 07/09/24 14:18 36.6 C 64 18 200/78 H 96 O2 Del Method 07/09/24 15:15 Room Air 07/09/24 15:05 07/09/24 14:48 07/09/24 14:39 07/09/24 14:36 Room Air 07/09/24 14:36 Room Air 07/09/24 14:18 Room Air PG Care Time/CCT Total # of Minutes Spent Total Time Spent with Patient: Total time spent is greater than 50% in coordination of care (as documented) at patient's floor/unit and/or counseling patient: Coding Level of Care Code 83742 INT INP/OBS CARE 3/75MIN Diagnoses Left arm weakness R29.898 Carotid stenosis I65.29 Diabetes E11.9 Hypertension I10
[2024-07-09 15:21] LABS: Partial Thromboplastin Time 27 Seconds (21-31); Prothrombin Time 10.9 Seconds (9.0-12.0)
[2024-07-09] MEDS ORDERED: CARBOHYDRATES FOR HYPOGLYCEMIA PO PRN (15:53)
[2024-07-09] MEDS ORDERED: DEXTROSE 50% 50 ML SYRINGE IV PRN (15:53)
[2024-07-09] MEDS ORDERED: GLUCAGON FOR INJ 1 MG VIAL SQ PRN (15:53)
[2024-07-09] MEDS ORDERED: GLUCOSE 40% GEL 15 GM TUBE PO PRN (15:53)
[2024-07-09] MEDS ORDERED: GLUCOSE 10 TAB/TUBE PO PRN (15:53)
[2024-07-09 15:59] LABS: Albumin Level 3.6 gm/dl (3.4-5.0); Bilirubin,Total 0.5 mg/dl (0.2-1.0); Calcium 8.5 mg/dl (8.6-10.3); Est GFR (Non-African American) 68.1 ml/min; Magnesium 1.8 mg/dl (1.7-2.4)
--- NOTE | 2024-07-09 16:22 | XRay Report ---
XR chest 1V portable CLINICAL HISTORY: stroke alert TECHNIQUE: Single frontal radiograph of the chest was obtained. Comparison: Comparison is made to chest radiograph 01/19/2024 FINDINGS: No lines and tubes are seen. Cardiomegaly is noted. The lungs are clear. No evidence of pleural effus ion or pneumothorax. IMPRESSION: No acute chest disease. ACT 112: Negative or not required by law. Electronically signed by: Miko Mcduffie M.D. 07/09/2024 4:20 PM
[2024-07-09 16:25] LABS: Albumin Globulin Ratio 1.4 (0.9-2); BUN Creatinine Ratio 16.7 (10-20); Globulin 2.5 gm/dl (2.5-4.0); Total Protein 6.1 gm/dl (6.0-8.3)
[2024-07-09] MEDS: ATORVASTATIN 40 MG TAB PO ONE (16:54)
--- NOTE | 2024-07-09 18:01 | Electrocardiogram Report ---
Test Reason : Blood Pressure : */* mmHG Vent. Rate : 68 BPM Atrial Rate : 68 BPM P-R Int : 206 ms QRS Dur : 96 ms QT Int : 402 ms P-R-T Axes : 40 -14 103 degrees QTcB Int : 427 ms Normal sinus rhythm with PACs Incomplete right bundle branch block Abnormal ECG When compared with ECG of 19-Jan-2024 18:25, Vent. rate has decreased by 40 bpm T wave inversion no longer evident in Inferior leads T wave inversion more evident in Lateral leads Confirmed by Trevor Hemphill ([id number]) on 07/09/2024 6:01:30 PM Referred By: Confirmed By: Trevor Hemphill
[2024-07-09] MEDS ORDERED: ONDANSETRON INJ 2 MG/ML 2 ML VIAL IV PRN (19:04)
[2024-07-09] MEDS ORDERED: ACETAMINOPHEN 325 MG TAB PO PRN (19:04)
[2024-07-09] MEDS ORDERED: PHARMACIST DISCHARGE MED REC CONSULT PRN (19:04)
--- NOTE | 2024-07-09 19:34 | Magnetic Resonance Report ---
MR brain wo con CLINICAL HISTORY: cva TECHNIQUE: Multiplanar and multisequence MR images of the brain were obtained without intravenous con trast. Comparison: Comparison is made to MRI brain 04/15/2021 and CTA head and neck 07/09/2024 FINDINGS: Tiny scattered foci of restricted diffusion is seen in the posterior right frontal lobe. Foci of T2 a nd FLAIR hyperintensity are noted in the paraventricular areas consistent with chronic small vessel i schemic disease. Ex vacuo ventriculomegaly and sulcal enlargement is noted compatible with diffuse vo lume loss. No mass is seen. There is no mass effect or midline shift. There is no evidence of acute i ntraparenchymal hemorrhage. No extra axial fluid collections are seen. The corpus callosum, pituitary gland, and cerebellar tonsils appear grossly unremarkable. Flow voids of the major intracranial arterial vessels are identified. The imaged portions of the para nasal sinuses, mastoid air cells, and orbits are unremarkable. IMPRESSION: Numerous punctate foci of restricted diffusion compatible with embolic stroke in the right MCA distri bution. No large contiguous focus of infarct is seen. ACT 112: Negative or not required by law. Electronically signed by: Miko Mcduffie M.D. 07/09/2024 7:31 PM
[2024-07-09] MEDS: INSULIN ASPART PER UNIT CHARGE SC SCH (19:41)
[2024-07-09] MEDS: LANTUS PER UNIT CHARGE SQ SCH (22:28)
[2024-07-09] MEDS: LABETALOL HCL IV 5 MG/ML 20ML IV PRN (22:29)
--- OUTSIDE RECORDS SUMMARY | 2024-07-09 22:52 | External Medical Summary | Continuity of Care Document ---
Author Name Unknown Organization [id number] Address [address] [place] [phone] Care Team Providers Care Balance Engineer Name Role Phone Estelle Guzmán Primary Care Physician [phone] Encounter [facility] [id number] Date(s): 02/14/24 - 02/14/24 [facility] [address] [facility] [address] [facility] [address] [phone] Encounter Diagnosis Ganglion cyst(Discharge Diagnosis) - 02/14/24 Chronic foot pain(Discharge Diagnosis) - 02/14/24 Discharge Disposition: Home or Self Care Attending Physician: MD Christianson Jesse Allergies, Adverse Reactions, Alerts No Known Allergies Immunizations Given and Recorded Vaccine Date Status Refusal Reason influenza virus vaccine, inactivated 08/25/23 John rded influenza virus vaccine, inactivated 08/09/22 John rded influenza virus vaccine, inactivated 08/19/19 Give n influenza virus vaccine, inactivated 08/16/18 Give n pneumococcal 23-valent vaccine 1 10/14/22 Given SARS-CoV-2 mRNA-1273 (6y+ bivalent) 08/09/22 Recor ded [...] 6Result Comment: 2023-05-01: Historical information-source unspecified Medications aspirin 81 mg oral capsule Start: 01/31/24 14:25:00 EDT Start Date: 01/31/24 Status: Ordered atorvastatin 20 mg oral tablet Start: 02/28/23 11:17:00 EDT, 1 tab, PO, Daily, Disp# 90 tab, Refills: 3, Pharmacy: [facility] #[id number] Start Date: 02/28/23 Stop Date: 02/23/24 Status: Ordered colchicine 0.6 mg oral tablet Start: 01/29/24 16:12:00 EDT, 1 tab, PO, bid, Disp# 60 tab, Refills: 0, Pharmacy: [facility] #[id number] Start Date: 01/29/24 Stop Date: 02/28/24 Status: Ordered levothyroxine 25 mcg (0.025 mg) oral tablet Start: 02/12/24 13:06:00 EDT, See Instructions, Disp# 60 tab, Refills: 0, take 1 tablet by mouth every morning ON AN EMPTY STOMACH, Pharmacy: [facility] #[id number] Start Date: 02/12/24 Status: Ordered metFORMIN 500 mg oral tablet Start: 06/14/23 9:43:00 EDT, 2 tab, PO, bid, Disp# 360 tab, Refills: 3, Pharmacy: [facility] #[id number] Start Date: 06/14/23 Stop Date: 06/08/24 Status: Ordered Tylenol Start: 01/31/24 14:25:00 EDT Start Date: 01/31/24 Status: Ordered verapamil 180 mg/12 hours oral tablet, extended release Start: 02/12/24 13:06:00 EDT, See Instructions, Disp# 90 tab, Refills: 3, take 1 tablet by mouth every morning, Pharmacy: [facility] #[id number] Start Date: 02/12/24 Status: Ordered Mental Status 02/14/24 Barriers to Learning one year None evide nt Mandatory Health Literacy Documentation Yes Health Literacy Communication Barriers N ever Primary Language Hebrew Problem List Condition Confirmation Course Effective Dates Status H ealth Status Informant Gout Confirmed Active History of bladder cancer Confirmed Active History of hepatitis A Confirmed Active Hypertension Confirmed Active Hypothyroid Confirmed Active Elevated liver function tests Confirmed Active Mixed hyperlipidemia Confirmed Active Spinal stenosis of lumbar region Confirmed Active Sprain of right ankle Confirmed Active 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 Otherwise negative. 5WNL 10 years Social History Social History Type Response Tobacco Former smoker, Cigar ettes 1 Smoking Status Former Smoker, quit > 1 yr Sex Male 1Quit 30 to 40 years ago. Smoked approx 1/2 ppd for 15 years. 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 [address] [place] [address] Care Team Related Persons Name: ARELI JORGE Address: home [address] [place] [phone]
--- OUTSIDE RECORDS SUMMARY | 2024-07-09 22:52 | External Medical Summary | Continuity of Care Document ---
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 Name Role Phone Estelle Guzmán Primary Care Physician [phone] Encounter [facility] [id number] Date(s): 03/18/24 - 03/18/24 [facility] [address] [facility] [address] [facility] [address] [place] [address] Encounter Diagnosis Gout of both feet(Discharge Diagnosis) - 03/18/24 Exostosis of right foot(Discharge Diagnosis) - 03/18/24 Idiopathic chronic gout, left ankle and foot, with tophus (tophi)(Discharge Diagnosis) - 03/18/24 Discharge Disposition: Home or Self Care Attending Physician: MELINA Gao Christina L Referring Physician: MD Guzmán Ravishankar E Allergies, Adverse Reactions, Alerts No Known Allergies Assessment and Plan Extracted from: Title:Orthopaedics Office Visit Note Author:Roula Fox DPM, Christina L Date:03/18/24 1.Gout of both feet Discussed with patient at today's follow-up visitthat I do feel he should continue conservative treatmentI offered an MRI with contrast for the left footwhich patient did declined due to lack of discomfort could certainly consider in the future if patient should develop pain from this arthriticarea/tophus. But I do feel that given the lack of discomfort and patient's agesurgical removal is not advised could consider if possible under ultrasound guidance to aspirate the area which he noted he has had done in the pastI feel this was attempted at least possibly previously but not able to to express anything from the areaagain I feel patient is most important choice for the left foot and shoe gearhe should avoid wearing any shoes that would irritate the area. The same thing applies the right foot again there is very little pain or tendernessI recommend for patient to wear shoe gear that does not irritate thearthritic area. Recommend 1 year follow-up with x-rays. 25-minuteinitial visit,8-minute chart review,17 minutes [id number] 2.Exostosis of right foot 3.Idiopathic chronic gout, left ankle and foot, with tophus (tophi) Immunizations Given and Recorded Vaccine Date Status [...] aspirin 81 mg oral capsule Start: 01/31/24 2:25:00 PM EDT Start Date: 01/31/24 Status: Ordered atorvastatin 20 mg oral tablet Start: 02/26/24 8:52:00 AM EDT, 1 tab, PO, Daily, Disp# 90 tab, Refills: 3, Pharmacy: [facility] #[id number] Start Date: 02/26/24 Stop Date: 02/20/25 Status: Ordered colchicine 0.6 mg oral tablet Start: 01/29/24 4:12:00 PM EDT, 1 tab, PO, bid, Disp# 60 tab, Refills: 0, Pharmacy: [facility] #[id number] Start Date: 01/29/24 Stop Date: 02/28/24 Status: Ordered levothyroxine 25 mcg (0.025 mg) oral tablet Start: 02/12/24 1:06:00 PM EDT, See Instructions, Disp# 60 tab, Refills: 0, take 1 tablet by mouth every morning ON AN EMPTY STOMACH, Pharmacy: [facility] #[id number] Start Date: 02/12/24 Status: Ordered metFORMIN 500 mg oral tablet Start: 06/14/23 9:43:00 AM EDT, 2 tab, PO, bid, Disp# 360 tab, Refills: 3, Pharmacy: [facility] #[id number] Start Date: 06/14/23 Stop Date: 06/08/24 Status: Ordered sildenafil 20 mg oral tablet Start: 03/11/24 9:37:00 AM EDT, See Instructions, Disp# 30 tab, Refills: 11, take 2-5 tabs as directed for ED, Note to Pharmacy: Use [employer]oucher, given to pt, Pharmacy: [id number] Start Date: 03/11/24 Status: Ordered triamcinolone 0.1% topical ointment Start: 03/11/24 9:39:00 AM EDT, 1 appl, topical, bid, Disp# 30 g, Refills: 0, apply a thin film to affected area bid x 7 days to treat itching, Pharmacy: [id number] Start Date: 03/11/24 Stop Date: 03/18/24 Status: Ordered Tylenol Start: 01/31/24 2:25:00 PM EDT Start Date: 01/31/24 Status: Ordered verapamil 180 mg/12 hours oral tablet, extended release Start: 02/12/24 1:06:00 PM EDT, See Instructions, Disp# 90 tab, Refills: 3, take 1 tablet by mouth every morning, Pharmacy: [facility] #[id number] Start Date: 02/12/24 Status: Ordered Mental Status 03/18/24 Barriers to Learning one year None evide nt Mandatory Health Literacy Documentation Yes Health Literacy Communication Barriers N ever Primary Language Grenadian Problem List Condition Confirmation Course Effective Dates Status H ealth Status Informant Gout of both feet Confirmed Active Idiopathic chronic gout, left ankle and foot, 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 Confirmed Active Gout Confirmed Active History of bladder cancer Confirmed Active History of hepatitis A Confirmed Active Hypertension Confirmed Active Hypothyroid Confirmed Active Elevated liver function tests Confirmed Active Mixed hyperlipidemia Confirmed Active Spinal stenosis of lumbar region Confirmed Active Sprain of right ankle Confirmed Active 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 Otherwise negative. 5WNL 10 years 65//15 Social History Social History Type Response Tobacco Former smoker, Cigar ettes 1 Smoking Status Former Smoker, quit > 1 yr Sex Male 1Quit 30 to 40 years ago. Smoked approx 1/2 ppd for 15 years. Ortho Outpt Note * MELINA Gao, Renetta Arevalo: PERFORM Event Display: Ortho Outpt Note Authored Date: [id number] Primary Care Provider MD RamierzEstelle Chief Complaint b/l masses at the tops of the foot, ongoing for years History of Present Illness Patient is a very pleasant 83-year-old male presenting today for an initial evaluation of bilateralmasses at the top of the feetongoing for many years. PCPDr. Guzmán. Patient saw my colleague Dr. Christiansonforevaluation of right and left foot. Under ultrasound right foot mass which is present at the first tarsometatarsal joint wasevaluated under ultrasound I appear to be consistent with a bony growth from midfoot arthritisthere is no obvious tophus or cystic structure. Ultrasound evaluationof the left foot showed a well circumscribed massconsistent with gouty tophus versus solidified ganglion cystwith also bony hypertrophy secondary to osteoarthritis Past medical historyelevated liver function test goutbladder cancer hepatitis C hypertension hypothyroidismhyperlipidemia spinal stenosis type 2 diabetes. Surgical historycolonoscopy Punch biopsybladder cancer removal Achilles tendon repairappendectomy biopsy bladder. Medicationsreviewed does include colchicine and metformin. Allergiesnone. Social historyformer smokerdenies alcohol useregular exercisedenies tobacco use. Family historyhypertension and tuberculosis Review of Systems Decreased vision cataracts diabetesblood thinner medication use and gout Physical Exam Problem focused bilateral feet: X-rays evaluated that were taken in February of this yearthat show on the right footfirst tarsometatarsal joint arthritis likely consistent with patient's area of bone mass. And on the left foot lateral x-ray showingtheexostosis at the talar neck as well as the probable area of the tophusversusganglion cyst. With regards to the left foot there hilaria softer mass about1 cm in diameterand essentially the central portion of the left footover the talonavicular joint or more so centered over the neck of the talusx-rays taken in February do show an arthritic exostosis present at that areaand ultrasound showingtophus from gout versussolidified ganglion cyst. There is no erythema and no pain basically patient has no pain with thisonly times he experiences tenderness that is if he wear shoes that irritate the area. Right foothas a very smallexostosis of bone at first tarsometatarsal jointthis is secondary to arthritis and again nontender unless shoe gear irritates the areano surrounding erythema no ecchymosis. Assessment/Plan 1.Gout of both feet Discussed with patient at today's follow-up visitthat I do feel he should continue conservative treatmentI offered an MRI with contrast for the left footwhich patient did declined due to lack of discomfort could certainly consider in the future if patient should develop pain from this arthriti carea/tophus. But I do feel that given the lack of discomfort and patient's agesurgical removal is not advised could consider if possible under ultrasound guidance to aspirate the area which henoted he has had done in the pastI feel this was attempted at least possibly previously but not able to to express anything from the areaagain I feel patient is most important choice for the leftfoot and shoe gearhe should avoid wearing any shoes that would irritate the area. The same thing applies the right foot again there is very little pain or tendernessI recommend for patient to wear shoe gear that does not irritate thearthritic area. Recommend 1 year follow-up with x-rays. 25-minuteinitial visit,8-minute chart review,17 minutes [id number] 2.Exostosis of right foot 3.Idiopathic chronic gout, left ankle and foot, with tophus (tophi) Problem List/Past Medical History Ongoing Elevated liver function tests Exostosis of right foot Gout Gout of both feet History of bladder cancer History of hepatitis A Hypertension Hypothyroid Idiopathic chronic gout, left ankle and foot, with tophus (tophi) Mixed hyperlipidemia Spinal stenosis of lumbar region Sprain of right ankle Type 2 diabetes mellitus with albuminuria Historical Acute gout Amnesia Chest wall contusion Diarrhea Frequent urination Ganglion cyst of left foot Headache Hematuria Hives Hypertensive disorder Left foot pain Localized swelling of both lower legs Medicare annual wellness visit, subsequent Rash of neck Renal artery stenosis Right ankle pain Procedure/Surgical History Colonoscopy| Service Date: 3Punch biopsy| Service Date: 08/12/2020Ankle X-ray| Service Date: 02/24/2018X-ray of Right tibia/fibula| Service Date: 03/05/2017Ultrasound--abdomen| Service Date: 04/10/2015Right Renal Arteriogram without Intervention| Service Date: 07/26/2013Colonoscopy| Service Date: 11/08/2012ladder Cancer Removal| Service Date: chilles tendon repairAppendectomyBiopsy-Bladder tumor Medications acetaminophen(Tylenol) aspirin(aspirin 81 mg oral capsule) atorvastatin(atorvastatin 20 mg oral tablet), 20 mg= 1 tab, PO, Daily, 3 refills colchicine(colchicine 0.6 mg oral tablet), 0.6 mg= 1 tab, PO, bid levothyroxine(levothyroxine 25 mcg (0.025 mg) oral tablet), See Instructions metFORMIN(metFORMIN 500 mg oral tablet), 1000 mg= 2 tab, PO, bid, 3 refills sildenafil(sildenafil 20 mg oral tablet), See Instructions, 11 refills triamcinolone topical(triamcinolone 0.1% topical ointment), 1 appl, topical, bid verapamil(verapamil 180 mg/12 hours oral tablet, extended release), See Instructions, 3 refills Allergies NKA Social History Smoking Status Former Smoker, quit > 1 yr Alcohol - Denies Alcohol Use Exercise - [...] Cause: Lung Disease Immunizations Vaccine Date Status influenza virus vaccine, inactivated 08/25/2023 Recorded pneumococcal 23-valent vaccine 10/14/2022 Given Comments : [...] Health Maintenance Pending(in the next year) OverDue Medicare Annual Wellness Visit due10/14/23and every 1year Due Diabetic Eye Exam due03/06/24and every 366day Adult COVID-19 Vaccination due03/18/24Unknown Frequency Adult Social Determinants of Health Screening due03/18/24Unknown Frequency Shingles Vaccine due03/18/24One-time only Due In Future Adult Influenza Vaccine not due until05/05/24and every 1year Diabetes Management A1c not due until02/28/25and every 366day Body Mass Index not due until03/12/25and every 366day Satisfied(in the past 1 year) Satisfied Adult Influenza Vaccine on08/25/23.Satisfied by SANCHEZ Martell Lori Body Mass Index on02/26/24.Satisfied by BRAXTON Haynes Angela Diabetes Management A1c on02/28/24.Satisfied by Contributor_system, [email or web address] Diabetes Nephropathy Management on02/28/24.Satisfied by Contributor_system, [email or web address] Lipid Screening on02/28/24.Satisfied by Contributor_system, [email or web address] Electronic Signature on File CC: Hector Christianson M.D. [address] [id number] CC: Jacklyn Rich DO [address] [address] Electronically Reviewed/Signed by: Renetta Gao DPM Author Signature Dt/Tm:03/18/2024 09:44 AM Division of Sports Medicine CLR Patient Care team information Care Team Personnel Name: TRIPP García Lynn Position: Physician Termite Helper Exempt - Vasc Surg Member Role: Lifetime Relationship Address: Address: [address] [place] [address] [place] Name: MD Ramirez, Estelle Poole Position: Physician Member Role: Primary Care Provider Address: Address: [address] [place] [address] [place] Care Team Related Persons Name: ARELI JORGE Address: home [address] [facility], [place] [id number]"
--- OUTSIDE RECORDS SUMMARY | 2024-07-09 22:52 | External Medical Summary | Continuity of Care Document ---
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) - Hypothyroidism, unspecified(Final) - Discharge Disposition: Home or Self Care Attending Physician: MD Guzmán Ravishankar E Referring Physician: MD Guzmán Ravishankar E Allergies, [...] 20 mg oral tablet Start: 02/26/24 8:52:00 EDT, 1 tab, PO, Daily, Disp# 90 tab, Refills: 3, Pharmacy: [facility] #[id number] Start Date: 02/26/24 Stop Date: 02/20/25 Status: Ordered colchicine 0.6 mg oral tablet Start: 01/29/24 16:12:00 EDT, 1 tab, PO, bid, Disp# 60 tab, Refills: 0, Pharmacy: [facility] #[id number] Start Date: 01/29/24 Stop Date: 02/28/24 Status: Ordered levothyroxine 25 mcg (0.025 mg) oral tablet Start: 02/12/24 13:06:00 EDT, See Instructions, Disp# 60 tab, Refills: 0, take 1 tablet by mouth every morning ON AN EMPTY STOMACH, Pharmacy: [facility] #[id number] Start Date: 02/12/24 Status: Ordered metFORMIN 500 mg oral tablet Start: 06/14/23 9:43:00 EDT, 2 tab, PO, bid, Disp# 360 tab, Refills: 3, Pharmacy: [facility] #[id number] Start Date: 06/14/23 Stop Date: 06/08/24 Status: Ordered Tylenol Start: 01/31/24 14:25:00 EDT Start Date: 01/31/24 Status: Ordered verapamil 180 mg/12 hours oral tablet, extended release Start: 02/12/24 13:06:00 EDT, See Instructions, Disp# 90 tab, Refills: 3, take 1 tablet by mouth every morning, Pharmacy: [facility] #[id number] Start Date: 02/12/24 Status: Ordered Problem List Condition Confirmation Course [...] 2 diabetes mellitus with albuminuria Confirmed Active Procedures Procedure Date Related Diagnosis Body Site [...] renal cysts. Otherwise negative. 5WNL 10 years Results Laboratory List Name Date Basic Metabolic Panel (BASIC METAB PANEL ) 02/28/24 Hemoglobin A1C (HEMOGLOBIN, A1C) 02/28/24 Lipid Profile (LIPOPROTEINS) 02/28/24 Microalbumin, Urine, Random (MICROALBUMI N, RD UR) 02/28/24 Thyroid Stimulating Hormone (TSH) 4 Uric Acid Level (URIC ACID) 02/28/24 Most recent to oldest [Reference Range]: 1 eGFR CKD-EPI [>60 mL/min/1.73 m2] 81 mL/ min/1.73 m2 1 (02/28/24 9:57 AM) Estimated Average Glucose 157 mg/dL (02/28/24 9:57 AM) Non-HDL 72 mg/dL 2 (02/28/24 9:57 AM) Estimated CrCl 56.89 mL/min (02/28/24 1:47 PM) Micro Alb (u) [<2.00 mg/dL] 13.69 mg/dL *HI* (02/28/24 9:57 AM) Anion Gap [5-14 mmol/L] 10 mmol/L (02/28/24 9:57 AM) BUN [7-20 mg/dL] 17 mg/dL (02/28/24 9:57 AM) Ca [8.4-10.2 mg/dL] 9.7 mg/dL (02/28/24 9:57 AM) Chol/HDL 3 (02/28/24 9:57 AM) Chol [125-200 mg/dL] 115 mg/dL *LOW* (02/28/24 9:57 AM) Cl- [96-107 mmol/L] 107 mmol/L (02/28/24 9:57 AM) HCO3 [22-30 mmol/L] 25 mmol/L (02/28/24 9:57 AM) Cret [0.70-1.30 mg/dL] 0.94 mg/dL (02/28/24 9:57 AM) HbA1c [<5.7 %] 7.1 % 3 *HI* (02/28/24 9:57 AM) Glu [74-106 mg/dL] 122 mg/dL *HI* (02/28/24 9:57 AM) HDL [>35 mg/dL] 43 mg/dL (02/28/24 9:57 AM) K [3.5-5.1 mmol/L] 4.5 mmol/L (02/28/24 9:57 AM) LDL Chol, Calculated [50-130 mg/dL] 52 m g/dL (02/28/24 9:57 AM) Micro Alb Ratio [<20 ug/mg cret] 164 ug/ mg cret *HI* (02/28/24 9:57 AM) Na [137-145 mmol/L] 142 mmol/L (02/28/24 9:57 AM) TG [<200 mg/dL] 100 mg/dL (02/28/24 9:57 AM) TSH [0.47-4.68 uIU/mL] 3.61 uIU/mL 4 (02/28/24 9:57 AM) Creat (u) 83.26 mg/dL 5 (02/28/24 9:57 AM) Uric Acid [3.5-8.5 mg/dL] 8.6 mg/dL 6 *HI* (02/28/24 9:57 AM) 1Result Comment: Testing Performed By: Dept of Pathology [facility], [address] [place] [address], [place] [address] 2Result Comment: Testing Performed By: Dept of Pathology [facility], [address] [place] [address], [place] [address] 3Result Comment: ADA Recommended [place] Reference Range: Normal: <5.7% Prediabetes: 5.7-6.4% Diabetes: >6.4% 4Result Comment: Testing Performed By: Dept of Pathology [facility], [address] [place] [address], [place] [address] 5Result Comment: Reference Range for Random Urine Not Established. 6Result Comment: Testing Performed By: Dept of Pathology [facility] Evan [place]e, [address] [place] [address], [place] [address] Social History Social History Type Response Tobacco Former smoker, Cigar ettes 1 Smoking Status Former Smoker, quit > 1 yr Sex Male 1Quit 30 to 40 years ago. Smoked approx 1/2 ppd for 15 years. Patient Care team information Care Team Personnel Name: TRIPP García Lynn Position: Physician Brim Shaper Exempt - Vasc Surg Member Role: Lifetime Relationship Address: Address: [address] [place] [address], [place] [address] [place] Name: MD Guzmán Ravishankar E Position: Physician Member Role: Primary Care Provider Address: Address: [address] [place] [address], [place] [address] Care Team Related Persons Name: ARELI JORGE Address: home [address] [facility], [place] [id number]
--- OUTSIDE RECORDS SUMMARY | 2024-07-09 22:52 | External Medical Summary | Continuity of Care Document ---
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) - 02/26/24 Hypertension(Discharge Diagnosis) - 02/26/24 Hypothyroid(Discharge Diagnosis) - 02/26/24 Gout(Discharge Diagnosis) - 02/26/24 Hyperlipidemia(Discharge Diagnosis) - 02/26/24 Discharge Disposition: Home or Self Care Attending Physician: MD Guzmán Ravishankar E Referring Physician: MD Guzmán Ravishankar E Allergies, Adverse Reactions, Alerts No Known Allergies Assessment and Plan Extracted from: Title:Office Visit Note Author:MD Guzmán Ravishan kar E Date:02/26/24 1.Type 2 diabetes mellitus with albuminuria - Eye exam coming up soon - Foot exam up to date, updated today - no new findings or neuropathy concerns - Repeat A1C, BMP, urine micro orders placed - Continue current regimen pending lab results 2.Hypertension - Well controlled on current regimen - BMP for surveillance - Continue as prescribed 3.Hypothyroid - Clinically euthyroid - TSH ordered - Continue current regimen 4.Gout - Uric acid level for surveillance - Continue colchicine as prescribed 5.Hyperlipidemia - Recheck FLP - Continue atorvastatin f/u 6m or soonerPRN. Time: 40mins 5- pre-visit chart review 30- visit, inclusive of history, exam, and discussion of assessment/plan 5- post-visit documentation/orders/coordination of care Immunizations Given and [...] 90 tab, Refills: 3, Pharmacy: [facility] #[id number] Start Date: 02/26/24 Stop Date: 02/20/25 Status: Ordered colchicine 0.6 mg oral tablet Start: 01/29/24 16:12:00 EDT, 1 tab, PO, bid, Disp# 60 tab, Refills: 0, Pharmacy: [facility] #[id number] Start Date: 01/29/24 Stop Date: 02/28/24 Status: Ordered levothyroxine 25 mcg (0.025 mg) oral tablet Start: 02/12/24 13:06:00 EDT, See Instructions, Disp# 60 tab, Refills: 0, take 1 tablet by mouth every morning ON AN EMPTY STOMACH, Pharmacy: [facility] #[id number] Start Date: 02/12/24 Status: Ordered metFORMIN 500 mg oral tablet Start: 06/14/23 9:43:00 EDT, 2 tab, PO, bid, Disp# 360 tab, Refills: 3, Pharmacy: [facility] #[id number] Start Date: 06/14/23 Stop Date: 06/08/24 Status: Ordered Tylenol Start: 01/31/24 14:25:00 EDT Start Date: 01/31/24 Status: Ordered verapamil 180 mg/12 hours oral tablet, extended release Start: 02/12/24 13:06:00 EDT, See Instructions, Disp# 90 tab, Refills: 3, take 1 tablet by mouth every morning, Pharmacy: [facility] #[id number] Start Date: 02/12/24 Status: Ordered Mental Status 02/26/24 Barriers to Learning one year None evide nt Mandatory Health Literacy Documentation Yes Health Literacy Communication Barriers N ever Primary Language Khmer Problem List Condition Confirmation Course Effective Dates [...] Effective Dates Health Status Clinical Service Informant Body mass index [BMI] 25.0-25.9, adult Discharge Diagnosis 02/26/24 Non-Specified Hypertension Discharge Diagnosis 02/26/24 Hyperlipidemia Discharge Diagnosis 02/26/24 Non-Specified Type 2 diabetes mellitus with albuminuria Discharge Diagnosis 02/26/24 Hypothyroid Discharge Diagnosis 02/26/24 Gout Discharge Diagnosis 02/26/24 Procedures Procedure Date Related Diagnosis Body Site [...] recent to oldest [Reference Range]: 1 Height 170.5 cm (02/26/24 8:40 AM) Patient Weight 73.1 kg (02/26/24 8:40 AM) Body Mass Index 25.15 kg/m2 (02/26/24 8:40 AM) Temperature [36.5-37.9 DegC] 35.6 DegC *LOW* (02/26/24 8:40 AM) Heart Rate 74 bpm (02/26/24 8:40 AM) Blood Pressure 118/62mmHg (02/26/24 8:40 AM) Cuff Pulse Pressure 56 mmHg (02/26/24 8:40 AM) Social History Social History Type Response Tobacco Former smoker, Cigar ettes 1 Smoking Status Former Smoker, quit > 1 yr Sex Male 1Quit 30 to 40 years ago. Smoked approx 1/2 ppd for 15 years. [facility] Outpt Note * MD Ramirez, Estelle Poole: PERFORM Event Display: [facility] Outpt Note Authored Date: Chief Complaint Lump on top of bilateral feet. History of Present Illness Vernon is an 83yoM here today for 6m f/u from prior visit 04/2023 for chronic conditions. He has T2DM, hypothyroid, and hypertension due for f/u labs. He generally reports his health feels goodother than his acute issues -- hospitalization in January for cellulitis and then gout. Diabetes has been historically well controlled, due for updated labs. Managed on metformin 1000mgonly. Doesn't feel things have changed much on this front. Eye exam coming up soon. Foot examUTD.He's been careful about diet/exercise. HTN stable on verapamil. BMP due. Denies headache/vision changes. Today is best BP has been recently. Hyperlipidemia managed on atorvastatin, due for repeat FLP. He has recently been dealing with gout diagnosed by another physician and seen in sports med with Dr. Christianson for US eval where gangion vs gout was differential. He's on colchicine for this. Hewas apparently referred to Dr. Celeste and thought that was a mispronunciation of my name so scheduledwith me for this. He is agreeable to see Dr. Gao for more definitive management. Review of Systems ROS reviewed/negative except as noted in HPI. Physical Exam Vitals & Measurements T:35.6C HR:74(Monitored) BP:118/62 SpO2:98% HT:170.5cm WT:73.100kg(Dosing) WT:73.1kg BMI:25.15 PHQ2 Data(Data Documented on:02/26/2024 08:38) Emotional health assessment NEGATIVE GENERAL APPEARANCE: The patient is alert, oriented and in no acute distress. VITALS: As above. HEENT: Head is normocephalic/atraumatic. PERRL, EOM-I. Oropharynx clear without lesions. NECK: Supple without lymphadenopathy. Thyroid wnl. CARDIOVASCULAR: Regular rate and rhythm, no m/r/g. +2radial/dp pulses. LUNGS: Clear to auscultation bilaterally. No wheezes/rhales/rhonchi. ABDOMEN: Soft, nontender, nondistended with normal bowel sounds. No rebound/guarding. EXTREMITIES: No cyanosis, clubbing or edema. NEUROLOGICAL: Grossly non-focal exam. SKIN: Warm and dry without any rash. DM FOOT EXAM: +2 dp pulses bilat gross sensation intact bl monofilament sensation intact bl Assessment/Plan 1.Type 2 diabetes mellitus with albuminuria - Eye exam coming up soon - Foot exam up to date, updated today - no new findings or neuropathy concerns - Repeat A1C, BMP, urine micro orders placed - Continue current regimen pending lab results 2.Hypertension - Well controlled on current regimen - BMP for surveillance - Continue as prescribed 3.Hypothyroid - Clinically euthyroid - TSH ordered - Continue current regimen 4.Gout - Uric acid level for surveillance - Continue colchicine as prescribed 5.Hyperlipidemia - Recheck FLP - Continue atorvastatin f/u 6m or soonerPRN. Time: 40mins 5- pre-visit chart review 30- visit, inclusive of history, exam, and discussion of assessment/plan 5- post-visit documentation/orders/coordination of care Problem List/Past Medical History Ongoing Elevated liver function tests Gout History of bladder cancer History of hepatitis [...] Service Date: 11/08/2012ladder Cancer Removal| Service Date: chill tendon repairAppendectomyBiopsy-Bladder tumor Medications acetaminophen(Tylenol) aspirin(aspirin 81 [...] due10/14/23and every 1year Due Adult COVID-19 Vaccination due02/26/24Unknown Frequency Adult Social Determinants of Health Screening due02/26/24Unknown Frequency Shingles Vaccine due02/26/24One-time only Due In Future Diabetic Eye Exam not due until03/06/24and every 366day Diabetes Management A1c not due until05/01/24and every 366day Adult Influenza Vaccine not due until05/05/24and every 1year Satisfied(in the past 1 year) Satisfied Adult Influenza Vaccine on08/25/23.Satisfied by SANCHEZ Martell Lori Body Mass Index on02/26/24.Satisfied by BRAXTON Haynes Angela Diabetes Management A1c on05/01/23.Satisfied by Contributor_system, [employer] Electronic Signature on File Electronically Reviewed/Signed by: Estelle Guzmán MD Author Signature Dt/Tm:02/26/2024 08:59 AM Department of Family Medicine [facility] Patient Care team information Care Team Personnel Name: TRIPP García Lynn Position: Physician Professor Of Religion Exempt - Vasc Surg Member Role: Lifetime Relationship Address: Address: [address] [place] [address] [address] [place] [address] Name: MD Ramirez, Estelle Poole Position: Physician Member Role: Primary Care Provider Address: Address: [address] [place] [address] [address] [place] [address] Care Team Related Persons Name: ARELI JORGE Address: home [address] [facility], [place] [id number]"
--- OUTSIDE RECORDS SUMMARY | 2024-07-09 22:52 | External Medical Summary | Continuity of Care Document ---
Author Name Unknown Organization [address] Address [address] [place] [address] [place], [place] [id number] Care Team Providers Care Older Worker Specialist Name Role Phone Estelle Guzmán Primary Care Physician [phone] [id number] Date[facility]s): 03/11/24 - 03/11/[address] [facility] [address] [facility] [address], [address] [place] [address] [place] [phone] Encounter Diagnosis Erectile dysfunction(Discharge Diagnosis) - 03/11/24 Dermatitis(Discharge Diagnosis) - 03/11/24 Discharge Disposition: Home or Self Care Attending Physician: MD Guzmán Ravishankar E Referring Physician: MD Guzmán Ravishankar E Allergies, Adverse Reactions, Alerts No Known Allergies Assessment and Plan Extracted from: Title:Office Visit Note Author:MD Ramirez, Vane Poole Date:03/11/24 1.Erectile dysfunction - Filled sildenafil 20mg for #30/month x 11 months - [employer] voucher provided 2.Dermatitis - Topical triamcinolone for spot treatment of itching prn, suspect plant dermatitis from recent gardening f/u PRN. Time: 30mins 5- pre-visit chart review 20- visit, inclusive of history, exam, and discussion [...] Daily, Disp# 90 tab, Refills: 3, Pharmacy: [facility] #[id number] Start Date: 02/26/24 Stop Date: 02/20/25 Status: Ordered colchicine 0.6 mg oral tablet Start: 01/29/24 16:12:00 EDT, 1 tab, PO, bid, Disp# 60 tab, Refills: 0, Pharmacy: [facility] #[id number] Start Date: 01/29/24 Stop Date: 02/28/24 Status: Ordered levothyroxine 25 mcg (0.025 mg) oral tablet Start: 02/12/24 13:06:00 EDT, See Instructions, Disp# 60 tab, Refills: 0, take 1 tablet by mouth every morning ON AN EMPTY STOMACH, Pharmacy: [facility] #[id number] Start Date: 02/12/24 Status: Ordered metFORMIN 500 mg oral tablet Start: 06/14/23 9:43:00 EDT, 2 tab, PO, bid, Disp# 360 tab, Refills: 3, Pharmacy: [facility] #[id number] Start Date: 06/14/23 Stop Date: 06/08/24 Status: Ordered sildenafil 20 mg oral tablet Start: 03/11/24 9:37:00 EDT, See Instructions, Disp# 30 tab, Refills: 11, take 2-5 tabs as directedfor ED, Note to Pharmacy: Use [employer] Voucher, given to pt, Pharmacy: [facility][id number] Start Date: 03/11/24 Status: Ordered triamcinolone 0.1% topical ointment Start: 03/11/24 9:39:00 EDT, 1 appl, topical, bid, Disp# 30 g, Refills: 0, apply a thin film to affected area bid x 7 days to treat itching, Pharmacy: [facility][id number] Start Date: 03/11/24 Stop Date: 03/18/24 Status: Ordered Tylenol Start: 01/31/24 14:25:00 EDT Start Date: 01/31/24 Status: Ordered verapamil 180 mg/12 hours oral tablet, extended release Start: 02/12/24 13:06:00 EDT, See Instructions, Disp# 90 tab, Refills: 3, take 1 tablet by mouth every morning, Pharmacy: [facility] #[id number] Start Date: 02/12/24 Status: Ordered Mental Status 03/11/24 Barriers to Learning one year None evide nt Mandatory Health Literacy Documentation Yes Health Literacy Communication Barriers N ever Primary Language Angolan Problem List Condition Confirmation Course Effective Dates [...] Effective Dates Health Status Clinical Service Informant Erectile dysfunction Discharge Diagnosis 03/11/24 Dermatitis Discharge Diagnosis 03/11/24 Procedures Procedure Date Related Diagnosis Body Site Status Colonoscopy 1 12/26/22 Completed Punch biopsy 08/12/20 Completed Ankle X-ray 2 02/24/18 Completed X-ray of Right tibia/fibula 3 03/05/17 Completed Ultrasound--abdomen 4 04/10/15 Com pleted Right Renal Arteriogram with out Intervention 07/26/13 Completed Colonoscopy 5 11/08/12 Completed Bladder Cancer Removal 2009 Co mpleted Achilles tendon repair Co mpleted [...] cysts. Otherwise negative. 5WNL 10 years 65//15 Vital Signs Most recent to oldest [Reference Range]: 1 Patient Weight 72.8 kg (03/11/24 9:16 AM) Heart Rate 64 bpm (03/11/24 9:16 AM) Respiratory Rate 20 br/min (03/11/24 9:16 AM) Blood Pressure 115/62mmHg (03/11/24 9:16 AM) Social History Social History Type Response Tobacco Former smoker, Cigar ettes 1 Smoking Status Former Smoker, quit > 1 yr Sex Male 1Quit 30 to 40 years ago. Smoked approx 1/2 ppd for 15 years. [facility] Outpt Note * MD Ramirez, Estelle Poole: PERFORM Event Display: [facility] Outpt Note Authored Date: Chief Complaint discuss medications History of Present Illness Vernon is an 83yoM here today to discuss sildenafil he forgot to mention at his prior visit. Given this was not in the chart he was asked to make an appt to discuss ED and start treatment as appropriate. He previously got this from Dr. Wong in 2019 but has been getting it online since which is why it was not in our recent prescribing records. He also has a rash on neck/trunk since gardening recently. Itching but not oozing/painful. Review of Systems 08/19pt ROS reviewed/negative except as noted in HPI. Physical Exam Vitals & Measurements HR:64(Monitored) RR:20 BP:115/62 SpO2:97% WT:72.800kg(Dosing) WT:72.8kg PHQ2 Data(Data Documented on:03/11/2024 09:15) Emotional health assessment NEGATIVE GENERAL APPEARANCE: The patient is alert, oriented and in no acute distress. VITALS: As above. HEENT: Head is normocephalic/atraumatic. CARDIOVASCULAR: +2 radial pulses. LUNGS: Respirations even and unlabored. EXTREMITIES: No cyanosis, clubbing or edema. NEUROLOGICAL: Grossly non-focal exam. SKIN: Warm and dry with rash on posterior neck and trunk. Assessment/Plan 1.Erectile dysfunction - Filled sildenafil 20mg for #30/month x 11 months - Goodrx voucher provided 2.Dermatitis - Topical triamcinolone for spot treatment of itching prn, suspect plant dermatitis from recent gardening f/u PRN. Time: 30mins 5- pre-visit chart review 20- visit, inclusive of history, exam, and discussion [...] Exam due03/06/24and every 366day Adult COVID-19 Vaccination due03/11/24Unknown Frequency Adult Social Determinants of Health Screening due03/11/24Unknown Frequency Shingles Vaccine due03/11/24One-time only Due In Future Adult Influenza Vaccine not due until05/05/24and every 1year Diabetes Management A1c not due until02/28/25and every 366day Satisfied(in the past 1 year) Satisfied Adult Influenza Vaccine on08/25/23.Satisfied by SANCHEZ Martell, Amelia Body Mass Index on02/26/24.Satisfied by BRAXTON Haynes Angela Diabetes Management A1c on02/28/24.Satisfied by Contributor_system, [id number] Diabetes Nephropathy Management on02/28/24.Satisfied by Contributor_system, [email or web address] Lipid Screening on02/28/24.Satisfied by Contributor[employer]system, [id number] Electronic Signature on File Electronically Reviewed/Signed by: Estelle Guzmán MD Author Signature Dt/Tm:03/11/2024 09:47 AM Department of Family Medicine [facility] Patient Care team information Care Team Personnel Name: TRIPP García Lynn Position: Physician Orthodontic Band Maker Exempt - Vasc Surg Member Role: Lifetime Relationship Address: Address: [address] [place] [id number] Name: MD Ramirez, Estelle Poole Position: Physician Member Role: Primary Care Provider Address: Address: [address] [place] [address] Care Team Related Persons Name: ARELI JORGE Address: home [address] [place], [place] [id number]"
[2024-07-10] MEDS: LEVOTHYROXINE SODIUM 25 MCG TABLET PO SCH (06:01)
[2024-07-10 06:38] LABS: Basophils # (auto) 0.05 K/uL (0.00-0.20); Basophils % (auto) 0.7 %; Eosinophils # (auto) 0.25 K/uL (0.00-0.50); Eosinophils % (auto) 3.5 %; Hematocrit (blood only) 40.6 % (42.0-52.0); Hemoglobin 13.8 g/dl (14.0-18.0); Immature Granulocytes # (auto) 0.03 K/uL (0.01-0.20); Immature Granulocytes % (auto) 0.4 %; Lymphocytes % (auto) 25.5 %; Mean Corpuscular Hemoglobin 30.4 pg (25.0-34.0); Mean Corpuscular Volume 89.4 fL (80.0-100.0); Mean Platelet Volume 9.3 fL (9.4-12.4); Monocytes # (auto) 0.76 K/uL (0.11-0.59); Monocytes % (auto) 10.8 %; Neutrophils # (auto) 4.17 K/uL (1.40-6.50); Neutrophils % (auto) 59.1 %; Platelet Count 174 K/uL (130-400); RDW Standard Deviation 39.1 fL (36.4-46.3); Red Blood Count 4.54 M/uL (4.70-6.10); White Blood Count 7.06 K/ul (4.8-10.8)
[2024-07-10 06:59] LABS: BUN Creatinine Ratio 14.4 (10-20); Calcium 8.8 mg/dl (8.6-10.3); Chol HDL Ratio 3.7 (0-5); Creatinine Clr Calc Pharmacy 49.4 ml/min; Est GFR (African American) 77.1 ml/min; Est GFR (Non-African American) 66.6 ml/min; Potassium 3.7 mmol/L (3.5-5.1)
[2024-07-10 08:27] LABS: Estimated Average Glucose 183 mg/dl
[2024-07-10] MEDS: ASPIRIN 81 MG ECTAB PO SCH (08:27)
--- NOTE | 2024-07-10 11:07 | Hospitalist Progress Note ---
Date of Service July 10, 2024 Assessment & Plan (1) Acute CVA (cerebrovascular accident): Plan: 83 y/o with diabetes and history of previous stroke admitted with acute R MCA stroke symptomatic of LUE and LLE weakness. Telestroke consult completed in ED. He declined TNK in ED after discussing risks:benefits. He was loaded on plavix. LLE weakness improved rapidly with some persistent LUE drift at time of telestroke evaluation. -CTA head/neck and brain MRI reviewed - posterior frontal right sided embolic MCA territory stroke, associated 90% proximal right ICA carotid stenosis. 60% stenosis on left -previously on ASA, plavix loaded in ED. Continue ASA and plavix - normal recommendation from neurology for DAPT is 21 days, however, I assume this will be prolonged if he undergoes TCAR -LDL 114 increased atorvastatin to 80 mg -A1c 8.0% improve glycemic control -TSH ordered -permissive HTN x 72h then begin to normalize BP -TTE ordered with bubble - reviewedno source of cardiac emboli identified, normal LV systolic function severe concentric LVH no significant valvular disease -tele monitoring, has been in sinus, no known hx afib -consult neurology -consulted vascular surgery for symptomatic carotid stenosis - reviewed recommendations by Dr. Ferrell TCAR of right carotid artery as outpatient in 2 weeks -PT/OT louise. was independent previously. recommended return [facility] independent living [facility] with onsite PT and OT, discussed with home care and home health aides teacher wrote prescription (2) Carotid stenosis: Plan: Bilateral carotid artery disease, symptomatic right ICA disease Vascular consulted for evaluation for revascularization Patient continued on DAPT as noted above (3) Diabetes: Plan: Type II DM Hg A1c 8.0% Basal bolus insulin ordered on admission Metformin held Goal BSG [id number]. Well controlled 07/10 (4) Hypertension: Plan: Hypertension Permissive hypertension for 72h hours Verapamil held, labetalol on-call Plan Hypothyroidism Synthroid continued. TSH pending. DVT prophylaxis: Lovenox Admission and Anticipated Discharge Date Admission Date: July 09, 2024 Subjective Mr Kiley is doing well. LUE is still weak, especially at wrist>hand. LLE weakness has more or less resolved. No numbness of face/arm/leg No other symptoms Did well with PT and other family visiting in room Physical Exam 2 Physical Exam: PHYSICAL EXAMINATION Last 24h vital signs reviewed, see documentation in flowsheet General: comfortable appearing, no distress, sits up easily from laying down in bed HEENT: Normocephalic, atraumatic, pupils round and equal, sclerae anicteric, no conjunctival injection, moist mucus membranes Lungs: Normal respiratory effort. Clear to auscultation bilaterally. No RRW Heart: Regular rate and rhythm, no murmurs. No JVD Abdomen: Soft, nontender, nondistended. Bowel sounds present. Extremities: Warm, dry, well-perfused. No extremity edema. Neuro: Alert and oriented x 4, face symmetric, has left upper extremity weakness especially with wrist flexion and extension where it is 3/5 in union contract representative and abduction of fingers which is also is 3/5, pronator drift is present. Lower extremities are both 5 out of 5 potentially from extremely subtle weakness in left compared to right Psych: Normal affect and behavior Results & Data Results & Data Vital Signs (Past 12 Hours) Vital Signs Temp Pulse Pulse Resp BP Pulse Ox O2 Del Method 07/10/24 10:33 79 07/10/24 07:37 36.6 C 74 17 191/89 H 96 Room Air 07/10/24 02:06 36.7 C 81 18 183/88 H 93 Room Air 07/10/24 00:22 83 Laboratory Results 07/10/24 05:48 07/10/24 05:48 Diagnostic Findings Chest X-Ray 07/09/24 14:24 XR chest 1V portable CLINICAL HISTORY: stroke alert TECHNIQUE: Single frontal radiograph of the chest was obtained. Comparison: Comparison is made to chest radiograph 01/19/2024 FINDINGS: No lines and tubes are seen. Cardiomegaly is noted. The lungs are clear. No evidence of pleural effusion or pneumothorax. IMPRESSION: No acute chest disease. ACT 112: Negative or not required by law. Electronically signed by: Miko Mcduffie M.D. 07/09/2024 4:[address] 07/09/24 14:24 CT OF THE HEAD WITHOUT CONTRAST CLINICAL HISTORY: Neuro deficit, acute, stroke suspected COMPARISON STUDY: MRI of the brain and head CT April 15, 2021. TECHNIQUE: Helical axial images of the head were obtained without IV contrast. Automated exposure control was utilized for the study. A dose lowering technique was utilized adhering to the principles of ALARA. FINDINGS: No acute intracranial hemorrhage, midline shift or mass effect is present. The ventricular system is stable. White matter hypodensities are unchanged and favor small vessel disease. There is mild atrophy. The basal cisterns are patent. No extra-axial collections are present. There are no findings to suggest acute dural sinus thrombosis or acute territorial infarct. No significant calvarial abnormalities are present. Visualized portions of the sinuses and mastoid air cells are clear. IMPRESSION: No acute intracranial findings. No change in appearance of the brain. ACT 112: Negative or not required by law. Electronically signed by: Jaden Acevedo M.D. 07/09/2024 2:38 PM Neck CTA 07/09/24 14:25 CT angio neck with con CLINICAL HISTORY: 83 years-old Male with l arm weak. Acute stroke like symptoms COMPARISON STUDY: Head CT and CTA head studies of same day, CT neck 04/15/2021 TECHNIQUE: Following the IV administration of 120 mL of Optiray, CT angiogram of the neck was performed from the aortic arch to the skull base. Images are reviewed in the axial, sagittal, and coronal planes. 3-D MIPS images are created and assessed. IV contrast was administered without complication. All measurements were calculated based on NASCET criteria. A dose lowering technique was utilized adhering to the principles of ALARA. CT DOSE: 1505.6 mGy.cm FINDINGS: Mild atherosclerotic plaque noted within the thoracic aortic arch. Patency of the innominate and imaged subclavian arteries. The common carotid arteries are widely patent. Moderate mixed plaque of the carotid bulbs and proximal cervical segments of the internal carotid arteries. This results in approximately 60% stenosis of the proximal cervical segment left ICA which has progressed from prior. Additionally, there is now approximately 90% stenosis of the proximal right ICA on image 242. 3 mm focus of nonocclusive thrombus versus irregular atheromatous plaque within the distal right common carotid artery on image 201. Dominant left vertebral artery. Atheromatous plaque at the origin of the left vertebral artery results in at least 50% luminal narrowing. The left vertebral artery is dominant. Developmentally diminutive right vertebral artery. There is at least mild luminal narrowing at the origin of the right vertebral artery. Numerous opacified venous collaterals noted throughout the neck and left upper chest. No pneumothorax. Unremarkable thyroid. No pathologically enlarged lymph nodes identified. Mild polypoid mucosal thickening of the left maxillary sinus. Degenerative changes of the spine. IMPRESSION: 1. Progressive atherosclerotic plaque of the carotid bulbs now results in approximately 90% stenosis of the proximal right ICA and 60% stenosis on the left. 2. Unchanged appearance of the vertebral arteries. ACT 112: Negative or not required by law. The above report was generated using voice recognition software. It may contain grammatical, syntax or spelling errors. Electronically signed by: Gabe Graham M.D. 07/09/2024 3:04 PM Head CTA 07/09/24 14:26 CT angio head w con CLINICAL HISTORY: l arm weak TECHNIQUE: CT angiography of the head was performed following intravenous administration of iodinated contrast. Coronal and sagittal MIPS were obtained from the axial data set and were submitted for review. Automated dose lowering techniques and/or adjustment according to patient size were utilized for this examination. All measurements were calculated based on NASCET criteria. Comparison: None available at the time of this dictation. FINDINGS: CTA Head: The anterior and posterior cerebral circulations are patent. origin of the right posterior cerebral artery is seen. IMPRESSION: No occlusion, hemodynamically significant stenosis, aneurysm, dissection, or arteriovenous malformation in the major intracranial arteries. Assessment of stenosis of the internal carotid arteries is based on NASCET criteria. ACT 112: Negative or not required by law. Electronically signed by: Miko Mcduffie M.D. 07/09/2024 2:43 PM Brain MRI 07/09/24 15:47 MR brain wo con CLINICAL HISTORY: cva TECHNIQUE: Multiplanar and multisequence MR images of the brain were obtained without intravenous contrast. Comparison: Comparison is made to MRI brain 04/15/2021 and CTA head and neck 07/09/2024 FINDINGS: Tiny scattered foci of restricted diffusion is seen in the posterior right frontal lobe. Foci of T2 and FLAIR hyperintensity are noted in the paraventricular areas consistent with chronic small vessel ischemic disease. Ex vacuo ventriculomegaly and sulcal enlargement is noted compatible with diffuse volume loss. No mass is seen. There is no mass effect or midline shift. There is no evidence of acute intraparenchymal hemorrhage. No extra axial fluid collections are seen. The corpus callosum, pituitary gland, and cerebellar tonsils appear grossly unremarkable. Flow voids of the major intracranial arterial vessels are identified. The imaged portions of the paranasal sinuses, mastoid air cells, and orbits are unremarkable. IMPRESSION: Numerous punctate foci of restricted diffusion compatible with embolic stroke in the right MCA distribution. No large contiguous focus of infarct is seen. ACT 112: Negative or not required by law. Electronically signed by: Miko Mcduffie M.D. 07/09/2024 7:31 PM PG Care Time/CCT Total # of Minutes Spent Total Time Spent with Patient: I personally spent: 50 minutes today on clinical care activities including: reviewing chart notes and vital signs reviewing labs reviewing studies reviewing animal nutrition consultant recommendations discussion with home care and home health aides teacher examining and counseling the patient counseling the patient's family writing orders documentation Coding Level of Care Code 83692 SUB INP/OBS CARE 3/50MIN Diagnoses Acute CVA (cerebrovascular accident) I63.9 Carotid stenosis I65.29 Diabetes E11.9 Hypertension I10
[2024-07-10] MEDS: CLOPIDOGREL BISULFATE 75 MG TAB PO SCH (12:18)
--- NOTE | 2024-07-10 14:25 | Consultation ---
Date of Consultation July 10, 2024 Assessment & Plan (1) Bilateral carotid artery disease: Pt with BL ICA stenosis, 90% on R, 60% on L. Presents with R hemispheric CVA confirmed by MRI, sx partially resolved, L arm weakness remains. Pt also seen by Dr Hernandez, who recommend surgical intervention for symptomatic carotid disease. Carotid Endarterectomy vs TCAR procedures, risks, benefits, both discussed at length with pt by myself and Dr Hernandez. Pt's was also present. Pt elects to proceed with R TCAR. Pt already started on DAPT and has been on statin medication. THis will need to be continued for procedure and for minimum of 1 year postop. Will schedule procedure in next 2 weeks. Office will call pt to schedule. Please call if needed. History of Present Illness Reason for Consultation: R ICA stenosis Attending Physician: Amita Barry MD History of Present Illness 83 yo m with hx of HTN, gout, DMII, bladder ca, CKD, hypothyroidism, hypercholesterolemia, admitted with L arm weakness and found to have R hemispheric CVA, seen in consultation today for R ICA stenosis. Pt states he was at home and noted numbness/weakness of L arm, then went to bathroom and fell and had difficulty getting up. Had his bring him to ED for eval. No previous similar sx. Denies amaurosis, facial droop, confusion, difficulty speaking, LIRIANO, dizziness. Denies fever, recent illness, chest pain, palpitations, SOB, abd pain, N/V, rest pain, claudication, other complaints. States his L arm sx are partially resolved, but still weak. Upon arrival to ED, telestroke was called and TNKase was advised, but pt refused d/t risks involved. Pt previously with TIA vs CVA while out of town in 2012, details unclear. Carotid US done at [facility] [place] office at that time demonstrated less than 50% stenosis BL. CTA neck demonstrates severe R ICA stenosis. MRI brain demonstrates R hemispheric CVA. Allergies Allergy/AdvReac Type Severity Reaction Status Date / Time No Known Allergies Allergy Mild NONE Verified 07/09/24 15:12 Home Medications Medication Instructions Recorded Confirmed Type levothyroxine 25 mcg tablet 25 mcg PO DAILYBB 08/19/19 07/09/24 History verapamil 180 mg tablet,extended 180 mg PO QAM 08/19/19 07/09/24 History release atorvastatin 20 mg tablet 20 mg PO HS 04/15/21 07/09/24 History metformin 500 mg tablet 1,000 mg PO BID 04/15/21 07/09/24 History oxybutynin chloride 10 mg 10 mg PO QAM 01/19/24 07/09/24 History tablet,extended release 24 hr aspirin 81 mg tablet,delayed 81 mg PO DAILY 01/24/24 07/09/24 History release Patient History Medical History Total bilirubin, elevated Urinary frequency CVA (cerebral vascular accident) 2012 Family History Mother , age 84 of uncertain cause Hypertension Father , age 64 with tuberculosis Tuberculosis Social History Smoking Status: Never smoker Tobacco Type: Cigarettes Hx Alcohol Use: Yes Alcohol type: wine Alcohol Intake Frequency Comment: 1 glass with dinner 4 times per week Hx Substance Use: No Preferred Language: Turkish Communication Ability: Effective Lockmaker Required: No Beliefs That Will Affect Care: None Current Living Situation: Spouse Current Living Situation Comment: Lives with at [facility]. 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 Feels Safe at Home: Yes Safety Concerns: Feels Safe At This Time Assistive Devices: None Review of Systems Review of Systems: All systems reviewed & are unremarkable except as noted in HPI & below Physical Exam Constitutional: WD/WN, vitals as above healthy appearing, cooperative and comfortable; not in distress ENMT: Ears: no hearing impairment Neck: trachea midline Respiratory: normal respiratory effort, lungs clear to auscultation Ausc ultation: + diminished lung sounds Cardiovascular: Rate/Rhythm: regular rate and regular rhythm Vessels: po sterior tibial pulses present, dorsalis pedis pulses present and radial pulses present; + abnormal peripheral pulses Extremities: normal capillary refill; no edema Gastrointestinal (Abdomen): Inspection/Auscultation: abdomen normal to inspection and normal bowel sounds Percussion/Palpation: abdomen soft; abdomen nontender Musculoskeletal: Extremities: extremities normal to inspection and + abnormal strength (LUE 2/5, RUE 5/5, BLE 5/5) Skin: no rashes, warm and dry Neurologic: moves all extremities, + focal motor deficit (L arm weakness, not flaccid) and awake; not confused Speech / Cognition: normal speech, no expressive aphasia and no receptive aphasia Psychiatric: A+Ox3, euthymic affect Results & Data Vital Signs (Past 12 Hours) Vital Signs Temp Pulse Pulse Resp BP Pulse Ox O2 Del Method 07/10/24 11:01 36.7 C 70 17 162/84 H 95 Room Air 07/10/24 10:33 79 07/10/24 07:37 36.6 C 74 17 191/89 H 96 Room Air
--- NOTE | 2024-07-10 14:51 | Pharmacy Report ---
- Date of Service July 10, 2024 - Pharmacy CVA/TIA Medication Review Medications to Prevent Stroke handout has been added to the patients discharge packet. Antiplatelet(s) * Aspirin 81 mg PO daily + clopidogrel 75 mg PO daily x 3 weeks, then monotherapy Cholesterol * High intensity statin: atorvastatin 80 mg daily DVT Prophylaxis * Enoxaparin 40 mg daily SQ Therapeutic Anticoagulation * No history of Afib/Aflutter noted Type 2 Diabetes * Patient has T2DM, per Dr. Barry, patient may be initiated on SGLT-2 inhibitor at discharge, but if not, then a decision on diabetes medication with proven CVD benefit will be deferred to their outpatient provider due to familiarity with risks/benefits of such therapies. "Medications to prevent stroke" handout has already been added to the patient's discharge packet, which instructs the patient to follow up with their outpatient provider to evaluate which diabetes medication with proven CVD benefit is best for them
--- NOTE | 2024-07-10 16:09 | XCELERA ---
[id number] \\[id number]
[2024-07-10] MEDS: ENOXAPARIN INJ 40 MG/0.4 ML SYR SQ SCH (21:04)
[2024-07-10] MEDS: ATORVASTATIN 40 MG TAB PO SCH (21:05)
[2024-07-10 23:06] VITALS: RESP 18; O2SAT 97
[2024-07-11] MEDS: PNEUMOCOCCAL VACCINE (PCV20) 20-VAL CONJ-DIP CRM/PF 0.5 ML SYR IM ONE (05:55)
[2024-07-11 07:11] VITALS: BP 173/87; TEMP 98.2
[2024-07-11 07:17] LABS: Thyroid Stimulating Hormone 6.012 uIu/ml (0.300-4.500)
[2024-07-11 07:54] LABS: T4 Free Thyroxine 0.93 ng/dl (0.61-1.60)
[2024-07-11] MEDS ORDERED: STROKE PATIENT DISCHARGE STA (08:54)
[2024-07-11 09:26] VITALS: PULSE 65
--- NOTE | 2024-07-11 11:42 | Neurology Consultation ---
Date of Consultation July 11, 2024 Assessment & Plan (1) CVA (cerebral vascular accident): (2) Bilateral carotid artery disease: Plan 83-year-old male presenting with a right MCA territory stroke, likely carotid embolic in the context of a 90% stenosis of the right internal carotid artery. Also has a clinically asymptomatic 60% stenosis of the left internal carotid artery. He may have had an episode of amaurosis fugax characterized by transient vision loss/blurry vision involving the right eye a few months ago as well. He does not endorse signs or symptoms suggestive of vasculitis. He has been taking aspirin, Plavix, and atorvastatin. These medications should be continued. He was seen by vascular surgery. Patient will need to have the right carotid stenosis addressed with either endarterectomy or TCAR procedure. Patient has chosen to undergo right TCAR. Surgery to be completed in the next 1 to 2 weeks. He will continue to follow with his PCP for ongoing monitoring of hypertension and diabetes mellitus. His hemoglobin A1c was 8.0. He may benefit from PT OT. Should not require additional outpatient neurology follow-up although I would be happy to see him in the next 2 to 3 weeks if requested, could see myself or one of our ABBEY's if necessary. History of Present Illness Reason for Consultation: Stroke Requesting Physician: Jhonny Attending Physician: Amita Barry MD History of Present Illness Patient was seen this morning prior to his discharge. 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 He attempted to stand and walk and had some weakness of the left leg as well resulting in a fall. He seemed a little confused according to his spouse, but otherwise was able to speak. A CT of the head was negative for hemorrhage or acute process. CT angiography of the head and neck revealed progressive atherosclerotic plaque of the carotid bulbs, 90% for the proximal right ICA, 60% for the left compared with previous angiography done in April 2021. A brain MRI revealed numerous punctate infarcts (primarily cortical, few subcortical) within the right MCA distribution, no hemorrhage, I independently reviewed these images as well as the angiography. He did have a telestroke consultation during his ED assessment, although TNK was recommended, patient ultimately declined after further consideration of risk/benefit. This morning, the patient was examined with his family at bedside, he was standing up and ambulating freely without assistance. He continues to complain of mild distal weakness for the left upper limb, primarily the left hand with difficulty with finger extension. No significant weakness for the leg. Upon further questioning, the patient does endorse a history of an episode of sudden onset blurry vision for the right eye occurring a few months ago, subsequently resolved, he did see his eye doctor at that time, apparently no abnormalities were identified. He also recalls having a low-grade right periorbital headache around that time, no headache at this time. Allergies Allergy/AdvReac Type Severity Reaction Status Date / Time No Known Allergies Allergy Mild NONE Verified 07/09/24 15:12 Home Medications Medication Instructions Recorded Confirmed Type levothyroxine 25 mcg tablet 25 mcg PO DAILYBB 08/19/19 07/09/24 History verapamil 180 mg tablet,extended 180 mg PO QAM 08/19/19 07/09/24 History release metformin 500 mg tablet 1,000 mg PO BID 04/15/21 07/09/24 History oxybutynin chloride 10 mg 10 mg PO QAM 01/19/24 07/09/24 History tablet,extended release 24 hr aspirin 81 mg tablet,delayed 81 mg PO DAILY 01/24/24 07/09/24 History release atorvastatin 40 mg tablet 80 mg (2 x 40 mg) PO HS #30 tabs 07/11/24 Rx clopidogrel 75 mg tablet 75 mg PO QAM #30 tabs 07/11/24 Rx lisinopril 5 mg tablet 5 mg PO DAILY #30 tabs 07/11/24 Rx Patient History Medical History Total bilirubin, elevated Urinary frequency CVA (cerebral vascular accident) 2012 Family History Mother , age 84 of uncertain cause Hypertension Father , age 64 with tuberculosis Tuberculosis Social History Smoking Status: Never smoker Tobacco Type: Cigarettes Hx Alcohol Use: Yes Alcohol type: wine Alcohol Intake Frequency Comment: 1 glass with dinner 4 times per week Hx Substance Use: No Preferred Language: Portuguese Communication Ability: Effective 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. 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 Feels Safe at Home: Yes Assistive Devices: None Review of Systems Constitutional: no fever and no chills Eyes: as per Subjective / HPI Ear, Nose, Mouth, Throat: no hearing loss Respiratory: no cough and no dyspnea Cardiovascular: no chest pain and no palpitations Gastrointestinal: no nausea and no vomiting Genitourinary: no dysuria Musculoskeletal: no myalgia Integumentary: no rash and no lesions Neurologic: as per Subjective / HPI Psychiatric: no depression and no anxiety Hematologic / Lymphatic: no easy bleeding and no easy bruising Exam (Neuro) Constitutional: well developed; no acute distress Eyes: normal visual crandall by confrontation, PERRL and EOM intact bilaterally; no nystagmus Neurologic: Oriented to:: Person, Place and Time Memory: Short Term Intact and Remote Intact Attention: Span Intact and Concentration Intact Speech Fluency: negative Dysarthria or Dysfluency Speech Aphasia: negative Aphasia Fund of Knowledge: Current Events, Past History and Vocabulary Cranial Nerves: Normal II, III, IV, , V, VII, VIII, IX, X, XI and XII Motor Strength: Normal Lower Extremities; negative Normal Upper Extremities (Weakness of left wrist extension, left finger extension noted, 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 as well) Motor Tone: Normal Lower Extremities and Normal Upper Extremities Muscle Bulk/Involuntary Movements: No Involuntary Movements; negative Muscle Atrophy Sensation: Light Touch Intact, Pain/Temperature Intact and Proprioception Intact Coordination: Finger-Nose Abnormal Laterality: Left; negative Limited Balance or Heel-Valenzuela Abnormal Deep Tendon Reflexes: Rt Triceps: 1+, Lt Triceps: 1+, Rt Biceps: 1+, Lt Biceps: 1+, Rt Brachioradialis: 1+, Lt Brachioradialis: 1+, Rt Patellar: 1+, Lt Patellar: 1+, Rt Ankle: 1+ and Lt Ankle: 1+ Special Tests: negative Babinski Present Gait: Hemiparetic (Mild) Laterality: Left Results & Data Vital Signs (Past 12 Hours) Vital Signs Temp Pulse Pulse Resp BP BP Pulse Ox 07/11/24 09:25 36.8 C 65 18 173/87 H 97 07/11/24 07:32 67 07/11/24 07:11 36.8 C 65 18 173/87 H 97 07/11/24 03:12 36.5 C 76 18 174/84 H 97 07/11/24 00:07 77 179/81 H 07/10/24 23:52 75 207/94 H O2 Del Method 07/11/24 09:25 07/11/24 07:32 07/11/24 07:11 Room Air 07/11/24 03:12 Room Air 07/11/24 00:07 07/10/24 23:52 Laboratory Results WBC 7.06, hemoglobin 13.8, hematocrit 40.6, platelet count 174, sodium 139, potassium 3.7, BUN 15, creatinine 1.04, glucose 135, hemoglobin A1c 8.0, calcium 8.8, triglycerides 110, cholesterol 188, LDL 115, VLDL 22, HDL 51, TSH 6.012, free T4 0.93 An echocardiogram was negative for cardioembolic source. Electrocardiogram revealed a normal sinus rhythm with PACs Coding Level of Care Code 08553 INT INP/OBS CARE 75MIN Diagnoses CVA (cerebral vascular accident) I63.9 Bilateral carotid artery disease I77.9 Time Spent (min) 90 Comment Total time includes patient contact, chart review, counseling, note preparation
--- NOTE | 2024-07-11 16:50 | Discharge Summary ---
Discharge Summary Date of Service July 11, 2024 Principal Dx & Hospital Course #1 = Principal Diagnosis (1) Acute CVA (cerebrovascular accident): 83 y/o with diabetes and history of previous stroke admitted with acute R MCA stroke symptomatic of LUE and LLE weakness. Telestroke consult completed in ED. He declined TNK in ED after discussing risks:benefits. He was loaded on plavix. LLE weakness improved rapidly with some persistent LUE drift at time of telestroke evaluation. -CTA head/neck and brain MRI - posterior frontal right sided embolic MCA territory stroke, associated 90% proximal right ICA carotid stenosis. 60% stenosis on left -previously on ASA, plavix loaded in ED. Continue ASA and plavix - normal recommendation from neurology for DAPT is 21 days, however, I assume this will be prolonged if he undergoes TCAR -LDL 114 increased atorvastatin to 80 mg -A1c 8.0% improve glycemic control, recommend considering adding SGLT2 inhibitor or GLP1 agonist for the dual cardiovascular and diabetes benefit, will defer to primary care -TSH was 6 -TTE with bubble - reviewedno source of cardiac emboli identified, normal LV systolic function severe concentric LVH no significant valvular disease -tele monitoring remained in sinus rhythm, no known hx afib -consulted neurology, reviewed recommendations -consulted vascular surgery for symptomatic carotid stenosis - reviewed recommendations by Dr. 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 Hernandez within about 2 weeks continue DAPT (3) Diabetes: continue metformin. Hemoglobin A1c 8.0% which is improved from 8.5% in January recommend adding SGLT2 inhibitor or GLP1 agonist for the dual cardiovascular and diabetes benefit, will defer to primary care (4) Hypertension: Hypertension Permissive hypertension for 72h hours poststroke then normalize Over 2 to 3 weeks Verapamil To resume tomorrow 07/11 added lisinopril 5 mg which he will start on Sunday 07/15. this will also aid with recovery from stroke and delay progression of diabetic kidney disease, he appears to have CKD stage III - follow-up in primary care within 1 to 2 weeks for blood pressure check, monitor metabolic panel with initiation of VAIBHAV inhibitor Plan Hypothyroidism Synthroid continued. TSH 6 - consider increasing levothyroxine versus recheck at interval Notes For Next Care Provider recommend adding SGLT2 inhibitor or GLP1 agonist for the dual cardiovascular and diabetes benefit lisinopril initiated please monitor blood pressure response, interval BMP consider increase in levothyroxine versus repeat TSH check at interval Medication Changes From Visit increased atorvastatin, added lisinopril 5 mg, added Plavix to aspirin for DAPT Admission HPI Per Admitting Provider Vernon is an 83-year-old male with history of type 2 diabetes, TIA, CVA, vertigo, hypothyroidism, CKD, occipital neuralgia who presents to the emergency department as a stroke alert who was normal when he woke up and went to the gym this morning however on attempting to eat lunch could not use his left arm/hand, and then attempted to go to the bathroom and fell due to weakness in his left leg. Was subsequently brought to the ER and was activated as a stroke alert. Per ER: 145 LUE weakness, +leg weakness. Declined TNKase Sx improved, now moving Telestroke --> plavix 300, DAPT 3 weeks, permissive HTN to goal 200. Per pt: Patient reports he has a history of a distant TIA with no residual deficits otherwise has not had a stroke and has no strength or sensory deficits at baseline. He was normal this morning when he went to the gym, returned and was eating lunch when he had difficulty using a spoon in his left hand which had become weak with some numbness. Patient felt off attempted to go to the bathroom but fell due to weakness in his legs. He is not sure if his legs felt weak bilaterally or chest on the left side. Came to the hospital as a stroke alert. Symptoms were gradually improving, no lower extremity strength or sensory deficits at time of ER admission. Does continue to have some left-sided drift and strength asymmetry. No facial asymmetry. No headache. No chest pain, chest pressure. No shortness of breath, dyspnea. He has not felt sick or had any cold-like symptoms prior to admission. No abdominal pain. No visual changes. No speech deficit or word finding difficulty. Declined TNKase after recess benefits discussion with ER and telestroke neurology Medical History: Reviewed Medications: Reviewed Surgical History: Reviewed Family history: Reviewed Allergies: Reviewed Social History: No tobacco use in 40 years. Rare social etoh Code Status: Full Discharge Exam PHYSICAL EXAMINATION Last 24h vital signs reviewed, see documentation in flowsheet General: seen standing up with PT OT very steady appearing later sitting in chair HEENT: Normocephalic, atraumatic, pupils round and equal, sclerae anicteric, no conjunctival injection, moist mucus membranes Lungs: Normal respiratory effort. Heart: deferred, sinus on telemetry Abdomen: nondistended Extremities: Warm, dry, well-perfused. No extremity edema. 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 Left lower extremity 5 out of 5 strength Psych: Normal affect and behavior Discharge Plan Discharge Items Patient Disposition: Home - Home Health Services Reason For Visit: CVA Discharge Diagnosis: Acute R MCA ischemic stroke, symptomatic right ICA stenosis Activity: Per Instructions section Non-emergency contact: Primary Care Provider and Neurologist Call non-emergency contact if: you have any medication questions and your symptoms worsen Follow-up/Referrals: Derrick Castillo MD [Physician] - (Spoke with [facility] neuro will call Pt to schedule follow up) Delbert Guzmán MD [Primary Care Provider] - 07/15/24 12:45 pm (Hospital follow up scheduled July 15 at 12:45) Jian Hernandez MD [Physician] - (Dr. Hernandez's office will call Pt to schedule follow up) Diet: Carb Consistent or DM2 and Low Sodium (2gm) Addtl Attending Provider Instructions: You were treated for acute ischemic stroke This caused weakness of the left side of your body It was related to clogged carotid artery on the right For stroke we recommend continuing aspirin and adding plavix (clopidogrel). You'll continue both of these for at least three weeks, but if Dr. Hernandez places a carotid stent he probably will want you on both of them for longer than that We also recommend increasing atorvastatin to 80 mg daily We let blood pressure intentionally ride high for awhile to help healing from stroke, then normalize it over a few weeks Restart your verapamil tomorrow (Monday) morning Monday morning start taking lisinopril. This will help lower your blood pressure and also protect your kidneys senior care Your diabetes is better controlled than in January but could use improvement to prevent strokes and heart attacks Continue your metformin and work on your diet We recommend starting another medication called SGLT-2 inhibitor for diabetes that also has benefits of slowing/preventing cardiovascular disease (Farxiga etc) Follow up with your primary care doctor in about a week to discuss this medicat ion and check on diabetes, blood pressure Follow up with Dr. Hernandez as planned in about two weeks for carotid procedure Follow up in neurology clinic within about a month Continue PT and OT at the [facility] [employer] Provider Instructions: Risk Factors for Stroke: You can reduce your chances of stroke by working with your medical provider to adopt a healthy lifestyle. Some specific ways to lower your chance of stroke are: * If you are a smoker, now is the time to stop smoking cigarettes * If you are diabetic, improve the control of your blood sugars * Avoid excessive amounts of alcohol * Control high blood pressure * Lose weight if you are overweight * Be sure to lead an active lifestyle * Eat a healthy diet low in salt, cholesterol and fat You should know about other risk factors for stroke that you are unable to control. These include: * Age 55 years or older * Male gender * Certain racial groups: , or / * Family History of Stroke, Mini stroke or Heart Attack * Sickle Cell Disease Follow Up: It is important for you to keep your follow up appointments with your medical provider. Who to Call and When: Medical Emergencies: Call 911 immediately if you experience any of the following warning signs and symptoms of Stroke: * Sudden numbness or weakness of the face, arm or leg, especially on one side of the body * Sudden confusion, trouble speaking or understanding * Sudden trouble seeing in one or both eyes * Sudden trouble walking, dizziness, loss of balance or coordination * Sudden severe headache with no cause Do not delay calling 911 if you experience any warning signs or symptoms of a s troke. Delay in seeking medical attention may affect what treatments can be given to you. . Pending Studies at Discharge: No Stand-Alone Forms: My [facility], Smoking Cessation, Medications to Prevent Stroke Medications and DC Order Prescriptions: New clopidogrel 75 mg Tablet 75 mg PO QAM Qty: 30 0RF atorvastatin 40 mg Tablet 80 mg PO HS Qty: 30 0RF lisinopril 5 mg tablet 5 mg PO DAILY Qty: 30 0RF Rx Instructions: start on 07/15/24 Continued verapamil 180 mg tablet extended release 180 mg PO QAM levothyroxine 25 mcg tablet 25 mcg PO DAILYBB metformin 500 mg tablet 1,000 mg PO BID oxybutynin chloride 10 mg tablet extended release 24hr 10 mg PO QAM aspirin 81 mg Tablet,Delayed Release (Dr/Ec) 81 mg PO DAILY Discontinued atorvastatin 20 mg tablet 20 mg PO HS Discharge Orders: Discharge Order (Routine); Ordered 07/11/24 Ordered By: Amita Vallecillo/Other Patient Handouts: Managing Type 2 Diabetes, Diabetes- Measuring Glucose at Home Admission Data Admit Date/Time: 07/09/24 15:46 Attending Provider: Amita Barry Admit Provider: Shailesh Rossi Primary Care Provider: Delbert Guzmán Other Providers: Shailesh Rossi; [facility]ian Hernandez; [facility]; Derrick Castillo. Other Interventions: Discharge Summary Assessment (RN) Last Done: 07/11/24 09:25 Hospital Stay Data Consultations 07/09/24 15:04 ED Decision to Admit Stat 07/09/24 15:47 Consult Vascular Surgery Routine 07/10/24 10:58 Consult Neurology Routine Diagnostic Imagining Performed 07/09/24 14:24 CT head/brain wo con Stat 07/09/24 14:25 CT angio neck with con Stat 07/09/24 14:26 CT angio head w con Stat 07/09/24 15:47 MR brain wo con Routine Pending Results Patient Have Any Pending Studies at Discharge: No Discharge Instructions Given to Patient (Per Discharging Provider) You were treated for acute ischemic stroke This caused weakness of the left side of your body It was related to clogged carotid artery on the right For stroke we recommend continuing aspirin and adding plavix (clopidogrel). You'll continue both of these for at least three weeks, but if Dr. Hernandez places a carotid stent he probably will want you on both of them for longer than that We also recommend increasing atorvastatin to 80 mg daily We let blood pressure intentionally ride high for awhile to help healing from stroke, then normalize it over a few weeks Restart your verapamil tomorrow (Monday) morning Monday morning start taking lisinopril. This will help lower your blood pressure and also protect your kidneys senior care Your diabetes is better controlled than in January but could use improvement to prevent strokes and heart attacks Continue your metformin and work on your diet We recommend starting another medication called SGLT-2 inhibitor for diabetes that also has benefits of slowing/preventing cardiovascular disease (Farxiga etc) Follow up with your primary care doctor in about a week to discuss this medication and check on diabetes, blood pressure Follow up with Dr. Hernandez as planned in about two weeks for carotid procedure Follow up in neurology clinic within about a month Continue PT and OT at the [facility] Total Time Total Time Spent Total Time Spent (In Minutes): I personally spent: 40 minutes today on clinical care activities including: reviewing chart notes and vital signs reviewing labs reviewing studies reviewing reimbursement consultant recommendations examining and counseling the patient counseling the patient's family writing orders, prescriptions discharge instructions documentation Coding Level of Care Code 53970 INP/OBS DISCH >30 MIN Diagnoses Acute CVA (cerebrovascular accident) I63.9 Carotid stenosis I65.29 Diabetes E11.9 Hypertension I10
== END 2024-07-11 10:35 | disposition home health service (06) | DRG 65 ==
LOC: ED 14:08 → SUATTDRO 15:46 → EDINP 15:46 → 2S 19:04

== ENCOUNTER 2024-07-21 00:16 | Observation (INO) ==
--- NOTE | 2024-07-21 00:38 | Emergency Department Note ---
History of Present Illness General Chief complaint: Neuro Symptoms/Deficit Stated complaint: HAND AND ARM NUMBNESS Time Seen by Provider: 07/21/24 00:25 History of Present Illness Provider complaint: Headache chest pain left upper extremity numbness Maximum Pain Intensity: 5 83-year-old male who recently suffered a stroke presents emergency department for headache chest pain and left upper extremity weakness. Patient reports his symptoms began after he was discharged from the hospital 2 days ago but have worsened tonight. He describes numbness in his left upper extremity. Patient currently describes his chest discomfort as a pressure and rates it 5 out of 10. He reports no difficulty breathing. No falls or traumas. Home Medications Medication Instructions Recorded Confirmed Type levothyroxine 25 mcg tablet 25 mcg PO DAILYBB 08/19/19 07/16/24 History verapamil 180 mg tablet,extended 180 mg PO QAM 08/19/19 07/16/24 History release metformin 500 mg tablet 1,000 mg PO BID 04/15/21 07/16/24 History oxybutynin chloride 10 mg 10 mg PO QAM 01/19/24 07/16/24 History tablet,extended release 24 hr aspirin 81 mg tablet,delayed 81 mg PO QAM 01/24/24 07/16/24 History release atorvastatin 40 mg tablet 80 mg (2 x 40 mg) PO HS #30 tabs 07/11/24 07/16/24 Rx clopidogrel 75 mg tablet (Plavix) 75 mg PO QAM 07/16/24 07/16/24 History lisinopril 5 mg tablet 5 mg PO QAM 07/16/24 07/16/24 History Allergies Allergy/AdvReac Type Severity Reaction Status Date / Time shellfish derived Allergy Intermediate Diarrhea Verified 07/16/24 10:16 Past Med/Surg History Problem List (Updated 07/21/24 @ 02:11 by Byron Crowder MD) Chest pain (Acute) Encounter for pre-operative examination Bilateral carotid artery disease HTN (hypertension) (Acute) Gout Hyperglycemia due to type 2 diabetes mellitus Acute foot pain (Acute) TIA (transient ischemic attack) CVA vs TIA 2012 History of CVA (cerebrovascular accident) (Acute) 07/09/24 Numbness and tingling of right arm (Acute) Dizziness (Acute) Vertigo Hypothyroid Hypercholesteremia Diabetes Kidney disease Upper extremity neuropathy (Acute 10/06/13) Occipital neuralgia (Acute) Left ear injury (Acute) Headache (Acute) Stomach problems (Chronic) Urinary problem (Chronic) Medical History LVH (left ventricular hypertrophy) severe cLVH per 07/10/24 ECHO CKD (chronic kidney disease) History of depression r/t first stroke - no issues currently Hypothyroidism HTN (hypertension) Gout 01/24/24-01/25/24 [facility]; Rx colchicine Diabetes mellitus, type 2 Hx: UTI (urinary tract infection) 01/2024 [facility] admission sepsis / UTI; resolved Hx of sepsis 12/08 to UTI 01/2024 admission Carotid stenosis 07/09/24 imagin% stenosis of the proximal right ICA and 60% stenosis on the left History of bladder cancer 2010; s/p BCG tx Urinary frequency CVA (cerebral vascular accident) 06/2013 in [facility] (CVA vs TIA per chart review) 07/09/24 [facility]: presented with LUE weakness; 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, associated 90% proximal R ICA stenosis, 60% stenosis L; plan for R TCAR; per pt, no residual sx Surgical History Hx of Achilles tendon repair Right Hx of colonoscopy Hx of appendectomy Family History Mother , age 84 of uncertain cause Hypertension Father , age 64 with tuberculosis Tuberculosis Social History Smoking Status: Never smoker Tobacco Type: Cigarettes Second Hand Exposure: No; Do You Dip or Chew Tobacco: No; Hx Alcohol Use: No Hx Substance Use: No Preferred Language: Korean Communication Ability: Effective Coagulation Operator Required: No Beliefs That Will Affect Care: None Current Living Situation: Spouse Current Living Situation Comment: Lives with at [facility]. 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 Feels Safe at Home: Yes Assistive Devices: Glasses and Other Physical Exam Vital Signs Vital Signs - 24 hr 07/21/24 00:17 07/21/24 01:01 07/21/24 01:15 Temperature 36.4 C L Temperature Source Temporal Artery Scan Pulse Rate 61 67 Pulse Rate [Apical] 72 Respiratory Rate 18 16 Blood Pressure 203/95 H Blood Pressure [Right Arm] 171/85 H Blood Pressure Mean 131 Blood Pressure Mean [Right Arm] 113 Blood Pressure Position Sitting Pulse Oximetry 96 95 Oxygen Delivery Method Room Air Room Air Sepsis Recent Fever Within 48 Hours No Sepsis New/Unexplained Change in Mental Status N/A Sepsis Action Taken by Nursing No Action Required Physical Exam GENERAL: He is oriented to person, place, and time. He appears well-developed and well-nourished. He does not appear distressed. HENT: Exam performed. - Head: Normocephalic and atraumatic. - Right Ear: External ear normal. No mastoid erythema - Left Ear: External ear normal. No mastoid erythema - Mouth/Throat: The oropharynx is clear and moist. No trismus in the jaw. No dental abscesses or uvula swelling. No oropharyngeal exudate or tonsillar abscesses. EYES: Conjunctivae and EOM are normal. Pupils are equal, round, and reactive to light. Right eye exhibits no discharge. Left eye exhibits no discharge. No scleral icterus. NECK: Normal range of motion. Neck supple. No JVD present. No spinous process tenderness present. No carotid bruit present. No rigidity. No tracheal deviation and normal range of motion present. No Brudzinski's sign and no Kernig's sign noted. CV: Normal rate, regular rhythm, normal heart sounds and intact distal pulses. There is no peripheral edema. Palpable radial pulses bue. PULM/CHEST: Effort normal and breath sounds normal. No respiratory distress. No stridor. He has no wheezes. He has no rales. - Chest Wall: He exhibits no tenderness. ABD: The abdomen is soft. Bowel sounds are normal. He has no distension. No mass is present. There is no tenderness. There is no rebound, no guarding, no Gallardo's sign and no tenderness at McBurney's point. Rovsig negative. MUSC/SKEL: Normal range of motion. There is no peripheral edema, tenderness or deformity. LYMPH: No cervical adenopathy. NEURO: He is alert and oriented to person, place, and time. Decreased left hand rubber and [employer] worker strength when compared to the right hand. No cranial nerve deficit or sensory deficit. Coordination and gait normal. GCS eye subscore is 4. GCS verbal subscore is 5. GCS motor subscore is 6. Cerebellar tests wnl. NIHSS 0 SKIN: Skin is warm and dry. He is not diaphoretic. PSYCH: He has a normal mood and affect. Behavior is normal. Judgment and thought content normal. Course Course 0025: The patient was evaluated in room B2. A complete history and physical exam was performed Cardiac monitoring: An order was placed for continuous cardiac monitoring. The monitor shows a rate of 61 with sinus rhythm interpreted by me Code stroke not called as the patient is not a TNK candidate due to the patient's symptoms have been present for the last 2 days, NIHSS 0, and the patient was diagnosed with a CVA 12 days ago. 0207: Vital signs stable. Labs within normal limits. CT of the head and CTA of the head showed no acute findings. CT of the neck showed extensive plaque disease. Patient reports his chest pain is resolved status post 2 sublingual nitroglycerin. [facility] out [facility]. Discussed case with Dr. Kee who evaluate the patient for admission. Administered Medications Discontinued Medications Ioversol (Optiray 320 125ml) 118 ml IV ONCE ONE Stop: 07/21/24 00:57 Last Admin: 07/21/24 00:57 Dose: 118 ml Documented By: PLW Nitroglycerin (Nitroglycerin Sl 0.4 Mg/Tab Tab) 0.4 mg SL NOW STA Stop: 07/21/24 00:39 Last Admin: 07/21/24 00:45 Dose: 0.4 mg Documented By: CDM Nitroglycerin (Nitroglycerin Sl 0.4 Mg/Tab Tab) 0.4 mg SL NOW STA Stop: 07/21/24 01:18 Last Admin: 07/21/24 01:19 Dose: 0.4 mg Documented By: AN Medical Decision Making Medical Records Attestation: I reviewed the patient's medical records. External medical records reviewed. Patient was admitted from July 09 to July 11, 2004. On July 09 the patient was diagnosed with an acute stroke and was not a TNK candidate was about to receive it but declined after meeting with her she teleneurology. Patient was diagnosed with a 90% proximal right ICA carotid stenosis and 60% on the left. There is a posterior frontal right-sided embolic MCA stroke on imaging also. Laboratory Data Attestation: I reviewed the patient's lab results. 07/21/24 00:34 07/21/24 00:34 Lab Results 07/21/24 07/21/24 Range/Units 00:34 00:35 WBC 6.68 (4.8-10.8) K/ul RBC 4.70 (4.70-6.10) M/uL Hgb 14.4 (14.0-18.0) g/dl Hct 42.6 (42.0-52.0) % MCV 90.6 (80.0-100.0) fL MCH 30.6 (25.0-34.0) pg MCHC 33.8 (32.0-36.0) g/dL RDW Std Deviation 40.2 (36.4-46.3) fL RDW Coeff of Parvin 12.2 (11.5-14.5) % Plt Count 185 (130-400) K/uL MPV 9.1 L (9.4-12.4) fL Immature Gran % (Auto) 0.4 % Neut % (Auto) 49.5 % Lymph % (Auto) 34.3 % Carter % (Auto) 11.5 % Eos % (Auto) 3.9 % Baso % (Auto) 0.4 % Neut # (Auto) 3.30 (1.40-6.50) K/uL Lymph # (Auto) 2.29 (1.20-3.40) K/uL Carter # (Auto) 0.77 H (0.11-0.59) K/uL Eos # (Auto) 0.26 (0.00-0.50) K/uL Baso # (Auto) 0.03 (0.00-0.20) K/uL Immature Gran # (Auto) 0.03 (0.01-0.20) K/uL PT 10.9 (9.0-12.0) Seconds INR 1.0 (0.9-1.1) APTT 25 (21-31) Seconds PTT Ratio 0.9 Sodium 138 (136-145) mmol/L Potassium 3.9 (3.5-5.1) mmol/L Chloride 104 (98-107) mmol/L Carbon Dioxide 27 (21-32) mmol/L Anion Gap 7 (3-11) BUN 19 (6-23) mg/dl Creatinine 0.98 (0.6-1.4) mg/dl Est Cr Clr Drug Dosing Not Reportable Est GFR ( Amer) 82.9 ml/min Est GFR (Non-Af Amer) 71.5 ml/min BUN/Creatinine Ratio 19.4 (10-20) Glucose 127 H (70-99(Fasting)) mg/dl POC Glucose 124 H (70-99) mg/dl Calcium 9.5 (8.6-10.3) mg/dl Magnesium 1.9 (1.7-2.4) mg/dl Total Bilirubin 0.6 (0.2-1.0) mg/dl AST 33 (13-39) U/L ALT 65 H (7-52) U/L Alkaline Phosphatase 68 (34-104) U/L Troponin I High Sens 7.6 (0-20) pg/ml Total Protein 7.6 (6.0-8.3) gm/dl Albumin 4.4 (3.4-5.0) gm/dl Globulin 3.2 (2.5-4.0) gm/dl Albumin/Globulin Ratio 1.4 (0.9-2) Blood Type A Positive Antibody Screen NEGATIVE Imaging Data Attestation: I personally reviewed and interpreted this imaging study as follows: My Impression: No significant change from the chest x-ray in July 09, 2024. Radiologist's Impression: Head CT 07/21/24 00:25 CR Exam(s): CT HEAD Without Contrast EXAM: CT Head Without Intravenous Contrast CLINICAL HISTORY: neuro deficit, acute stroke suspected. TECHNIQUE: Axial computed tomography images of the head/brain without intravenous contrast. CTDI is 35.92 mGy and DLP is 624.41 mGy-cm. Automated exposure control was utilized for the study. A dose lowering technique was utilized adhering to the principles of ALARA. COMPARISON: No relevant prior studies available. FINDINGS: Brain: Areas of decreased attenuation in the deep cerebral white matter are consistent with small vessel ischemic/degenerative changes. The cerebral and cerebellar sulci are prominent consistent with brain atrophy. No intracranial hemorrhage. No significant mass effect. No cortical infarct. Ventricles: No midline shift. No ventricular effacement. Bones/joints: Unremarkable. No acute fracture. Soft tissues: Unremarkable. Sinuses: Unremarkable as visualized. No acute sinusitis. Mastoid air cells: Unremarkable as visualized. No mastoid effusion. IMPRESSION: 1. No acute intracranial process identified. 2. Incidental chronic parenchymal involutional changes and periventricular presumed microvascular changes. Communications: Call Doctor Stroke Electronically signed by: Alex Ayala MD 07/21/24 01:24 AM Head CTA 07/21/24 00:25 CR Exam(s): CTA HEAD With Contrast IV Amt: 118 ml opti 320 EXAM: CT Angiography Head With Intravenous Contrast CLINICAL HISTORY: neuro deficit, acute stroke suspected. TECHNIQUE: Axial computed tomographic angiography images of the head with intravenous contrast. CTDI is 13.21 mGy and DLP is 542.1 mGy-cm. Automated exposure control was utilized for the study. A dose lowering technique was utilized adhering to the principles of ALARA. MIP reconstructed images were created and reviewed. CONTRAST: Patient received 118 ml opti 320 of IV contrast COMPARISON: No relevant prior studies available. FINDINGS: Limitations: There is mild motion artifact, which degrades image quality on multiple image slices. Right internal carotid artery: No acute findings. Intracranial segment is patent with no significant stenosis. No aneurysm. Right anterior cerebral artery: Unremarkable. No occlusion or significant stenosis. No aneurysm. Right middle cerebral artery: Unremarkable. No occlusion or significant stenosis. No aneurysm. Right posterior cerebral artery: A right posterior communicating artery is identified. The right posterior cerebral artery is patent. No occlusion or significant stenosis. No aneurysm. Right vertebral artery: The distal right vertebral artery is atretic, measuring only 1 mm in diameter. Evaluation of the distal intracranial vertebral artery is limited by motion artifact. The right PICA is intact. Left internal carotid artery: No acute findings. Intracranial segment is patent with no significant stenosis. No aneurysm. Left anterior cerebral artery: Unremarkable. No occlusion or significant stenosis. No aneurysm. Left middle cerebral artery: Unremarkable. No occlusion or significant stenosis. No aneurysm. Left posterior cerebral artery: A left posterior communicating artery is identified. The left posterior cerebral artery is patent. No occlusion or significant stenosis. No aneurysm. Left vertebral artery: The left vertebral artery is dominant and is widely patent. Basilar artery: Unremarkable. No occlusion or significant stenosis. No aneurysm. Brain: No abnormal parenchymal enhancement. IMPRESSION: 1. Evaluation of the distal small caliber right vertebral artery is slightly limited by motion artifact. However, the right PICA is patent. The left vertebral artery is dominant and is widely patent. The basilar artery and posterior cerebral arteries are patent. 2. Negative CTA evaluation of the anterior circulation bilaterally. No occlusion or significant stenosis. Communications: Call Doctor Stroke Electronically signed by: Alex Aayla MD 07/21/24 01:28 AM Neck CTA 07/21/24 00:25 CR Exam(s): CTA NECK With Contrast IV Amt: 118 ml opti 320 EXAM: CT Angiography Neck With Intravenous Contrast CLINICAL HISTORY: neuro deficit, acute stroke suspected. TECHNIQUE: Routine carotid CT angiography protocol was performed with intravenous contrast. NASCET criteria using the distal ICAs for comparison were used for evaluation of stenoses. CTDI is 13.21 mGy and DLP is 542.1 mGy-cm. Automated exposure control was utilized for the study. A dose lowering technique was utilized adhering to the principles of ALARA. MIP reconstructed images were created and reviewed. CONTRAST: Patient received 118 ml opti 320 of IV contrast COMPARISON: None. FINDINGS: Limitations: There is motion artifact, which degrades image quality on multiple image slices. VASCULATURE: Right common carotid artery: Rounded filling defect in the distal right common carotid artery (series 7; image 201) measuring 2.3 mm. Regional concentric intimal hyperplasia noted. The right common carotid artery is otherwise patent. No occlusion or significant stenosis. No dissection. Right internal carotid artery: Prominent atherosclerotic calcification of the proximal right internal carotid artery with severe, greater than 75% luminal stenosis, approximately 1.5 cm beyond the carotid bifurcation. Additional areas of mild to moderate narrowing are noted proximally secondary to probably noncalcified atheromatous changes. The mid to distal right internal carotid arteries patent. No dissection. Right external carotid artery: Unremarkable. No occlusion. Right vertebral artery: The right vertebral artery is small in caliber throughout its course, measuring only 1 mm. No occlusion or significant stenosis. No dissection. Left common carotid artery: Mild intimal hyperplasia involving the left common carotid artery. No occlusion or significant stenosis. No dissection. Left internal carotid artery: Atherosclerotic calcification of the proximal left internal carotid artery with only mild narrowing by NASCET criteria. The mid to distal left internal carotid artery is patent. No dissection. Left external carotid artery: Unremarkable. No occlusion. Left vertebral artery: The left vertebral artery is widely patent. No stenosis or occlusion. Aorta: The aortic arch is patent, although incompletely included. No dissection or aneurysm. NECK: Bones/joints: Degenerative changes of the cervical spine. The right neural foramina are asymmetrically small in caliber. No acute fracture. Soft tissues: Unremarkable. Lung apices: Clear. CAROTID STENOSIS REFERENCE USING NASCET CRITERIA: % ICA stenosis = (1 - narrowest ICA diameter/diameter of distal cervical ICA) x 100. Mild - <50% stenosis. Moderate - 50-69% stenosis. Severe - 70-94% stenosis. Near occlusion - 95-99% stenosis. Occluded - 100% stenosis. IMPRESSION: 1. Prominent atherosclerotic calcification of the proximal right internal carotid artery with severe, greater than 75% luminal stenosis, approximately 1.5 cm beyond the carotid bifurcation. Additional areas of mild to moderate narrowing are noted proximally secondary to probably noncalcified atheromatous changes. The mid to distal right internal carotid arteries patent. 2. Rounded filling defect in the distal right common carotid artery (series 7; image 201) measuring 2.3 mm. Regional concentric intimal hyperplasia noted. The appearance is most consistent with a pedunculated plaque burden; however, subtle thrombus is also a consideration. The right common carotid artery is otherwise patent. 3. The right vertebral artery is small in caliber throughout its course, measuring only 1 mm. This is a presumed congenital finding given the associated right transverse foramina. The left vertebral artery is widely patent. 4. Atherosclerotic calcification of the proximal left internal carotid artery with only mild narrowing by NASCET criteria. The mid to distal left internal carotid artery is patent. Mild intimal hyperplasia involving the left common carotid artery without significant narrowing. Communications: Call Doctor Stroke Electronically signed by: Alex Ayala MD 07/21/24 01:34 AM ECG Data Attestation: I personally reviewed and interpreted this ECG as follows: Rate (beats per minute): 61 Rhythm: + normal sinus ECG Intervals/blocks: + Normal QRS, + Normal FL and + Normal QT-c ECG ST segments: + Normal ST segments MDM Narrative 0025: The patient was evaluated in room B2. A complete history and physical exam was performed Cardiac monitoring: An order was placed for continuous cardiac monitoring. The monitor shows a rate of 61 with sinus rhythm interpreted by me Code stroke not called as the patient is not a TNK candidate due to the patient's symptoms have been present for the last 2 days, NIHSS 0, and the patient was diagnosed with a CVA 12 days ago. 0207: Vital signs stable. Labs within normal limits. CT of the head and CTA of the head showed no acute findings. CT of the neck showed extensive plaque disease. Patient reports his chest pain is resolved status post 2 sublingual nitroglycerin. [facility]. Discussed case with Dr. Kee who evaluate the patient for admission. Impression & Plan Chest pain Discharge Plan Visit Data Chief Complaint: Neuro Symptoms/Deficit Stated Complaint: HAND AND ARM NUMBNESS ED Provider: Byron Crowder Discharge Problem: Chest pain Patient Disposition: Being Evaluated by Hospitalist Forms Stand Alone Forms: [facility] Prescriptions Prescriptions: No Action verapamil 180 mg tablet extended release 180 mg PO QAM levothyroxine 25 mcg tablet 25 mcg PO DAILYBB metformin 500 mg tablet 1,000 mg PO BID oxybutynin chloride 10 mg tablet extended release 24hr 10 mg PO QAM aspirin 81 mg Tablet,Delayed Release (Dr/Ec) 81 mg PO QAM atorvastatin 40 mg Tablet 80 mg PO HS Qty: 30 0RF clopidogrel [Plavix] 75 mg tablet 75 mg PO QAM lisinopril 5 mg tablet 5 mg PO QAM Rx Instructions: start on 07/15/24 Referrals Referrals: Delbert Guzmán MD [Primary Care Provider] - Discharge Problem: Chest pain Qualifiers: Chest pain type: unspecified Qualified Code(s): R07.9 - Chest pain, unspecified
[2024-07-21] MEDS: NITROGLYCERIN SL 0.4 MG/TAB TAB SL STA ×2 (00:45→01:19)
[2024-07-21 00:56] LABS: Basophils # (auto) 0.03 K/uL (0.00-0.20); Basophils % (auto) 0.4 %; Eosinophils # (auto) 0.26 K/uL (0.00-0.50); Eosinophils % (auto) 3.9 %; Hematocrit (blood only) 42.6 % (42.0-52.0); Hemoglobin 14.4 g/dl (14.0-18.0); Immature Granulocytes # (auto) 0.03 K/uL (0.01-0.20); Immature Granulocytes % (auto) 0.4 %; Lymphocytes # (auto) 2.29 K/uL (1.20-3.40); Lymphocytes % (auto) 34.3 %; Mean Corpuscular Hemoglobin 30.6 pg (25.0-34.0); Mean Corpuscular Hgb Conc 33.8 g/dL (32.0-36.0); Mean Corpuscular Volume 90.6 fL (80.0-100.0); Mean Platelet Volume 9.1 fL (9.4-12.4); Monocytes # (auto) 0.77 K/uL (0.11-0.59); Monocytes % (auto) 11.5 %; Neutrophils % (auto) 49.5 %; Platelet Count 185 K/uL (130-400); RDW Coefficient of Variation 12.2 % (11.5-14.5); RDW Standard Deviation 40.2 fL (36.4-46.3); White Blood Count 6.68 K/ul (4.8-10.8)
[2024-07-21] MEDS: OPTIRAY 320 125ml IV ONE (00:57)
[2024-07-21 01:11] LABS: Alanine Aminotransferase 65 U/L (7-52); Albumin Globulin Ratio 1.4 (0.9-2); Albumin Level 4.4 gm/dl (3.4-5.0); Alkaline Phosphatase 68 U/L (34-104); Anion Gap 7 (3-11); Aspartate Aminotransferase 33 U/L (13-39); BUN Creatinine Ratio 19.4 (10-20); Bilirubin,Total 0.6 mg/dl (0.2-1.0); Blood Urea Nitrogen 19 mg/dl (6-23); Calcium 9.5 mg/dl (8.6-10.3); Carbon Dioxide 27 mmol/L (21-32); Chloride 104 mmol/L (98-107); Est GFR (African American) 82.9 ml/min; Est GFR (Non-African American) 71.5 ml/min; Globulin 3.2 gm/dl (2.5-4.0); Glucose 127 mg/dl (70-99(Fasting)); Magnesium 1.9 mg/dl (1.7-2.4); Potassium 3.9 mmol/L (3.5-5.1); Sodium 138 mmol/L (136-145); Total Protein 7.6 gm/dl (6.0-8.3)
[2024-07-21 01:17] LABS: Troponin I High Sensitivity 7.6 pg/ml (0-20)
[2024-07-21 01:25] LABS: Partial Thromboplastin Ratio 0.9; Partial Thromboplastin Time 25 Seconds (21-31); Prothrombin Time 10.9 Seconds (9.0-12.0)
--- NOTE | 2024-07-21 01:25 | CT Scan Report ---
Exam(s): CT HEAD Without Contrast EXAM: CT Head Without Intravenous Contrast CLINICAL HISTORY: neuro deficit, acute stroke suspected. TECHNIQUE: Axial computed tomography images of the head/brain without intravenous contrast. CTDI is 35.92 mGy and DLP is 624.41 mGy-cm. Automated exposure control was utilized for the study. A dose lowering technique was utilized adhering to the principles of ALARA. COMPARISON: No relevant prior studies available. FINDINGS: Brain: Areas of decreased attenuation in the deep cerebral white matter are consistent with small vessel ischemic/degenerative changes. The cerebral and cerebellar sulci are prominent consistent with brain atrophy. No intracranial hemorrhage. No significant mass effect. No cortical infarct. Ventricles: No midline shift. No ventricular effacement. Bones/joints: Unremarkable. No acute fracture. Soft tissues: Unremarkable. Sinuses: Unremarkable as visualized. No acute sinusitis. Mastoid air cells: Unremarkable as visualized. No mastoid effusion. IMPRESSION: 1. No acute intracranial process identified. 2. Incidental chronic parenchymal involutional changes and periventricular presumed microvascular changes. Communications: Call Doctor Stroke Electronically signed by: Alex Ayala MD 07/21/24 01:24 AM
--- NOTE | 2024-07-21 01:29 | CT Scan Report ---
Exam(s): CTA HEAD With Contrast IV Amt: 118 ml opti 320 EXAM: CT Angiography Head With Intravenous Contrast CLINICAL HISTORY: neuro deficit, acute stroke suspected. TECHNIQUE: Axial computed tomographic angiography images of the head with intravenous contrast. CTDI is 13.21 mGy and DLP is 542.1 mGy-cm. Automated exposure control was utilized for the study. A dose lowering technique was utilized adhering to the principles of ALARA. MIP reconstructed images were created and reviewed. CONTRAST: Patient received 118 ml opti 320 of IV contrast COMPARISON: No relevant prior studies available. FINDINGS: Limitations: There is mild motion artifact, which degrades image quality on multiple image slices. Right internal carotid artery: No acute findings. Intracranial segment is patent with no significant stenosis. No aneurysm. Right anterior cerebral artery: Unremarkable. No occlusion or significant stenosis. No aneurysm. Right middle cerebral artery: Unremarkable. No occlusion or significant stenosis. No aneurysm. Right posterior cerebral artery: A right posterior communicating artery is identified. The right posterior cerebral artery is patent. No occlusion or significant stenosis. No aneurysm. Right vertebral artery: The distal right vertebral artery is atretic, measuring only 1 mm in diameter. Evaluation of the distal intracranial vertebral artery is limited by motion artifact. The right PICA is intact. Left internal carotid artery: No acute findings. Intracranial segment is patent with no significant stenosis. No aneurysm. Left anterior cerebral artery: Unremarkable. No occlusion or significant stenosis. No aneurysm. Left middle cerebral artery: Unremarkable. No occlusion or significant stenosis. No aneurysm. Left posterior cerebral artery: A left posterior communicating artery is identified. The left posterior cerebral artery is patent. No occlusion or significant stenosis. No aneurysm. Left vertebral artery: The left vertebral artery is dominant and is widely patent. Basilar artery: Unremarkable. No occlusion or significant stenosis. No aneurysm. Brain: No abnormal parenchymal enhancement. IMPRESSION: 1. Evaluation of the distal small caliber right vertebral artery is slightly limited by motion artifact. However, the right PICA is patent. The left vertebral artery is dominant and is widely patent. The basilar artery and posterior cerebral arteries are patent. 2. Negative CTA evaluation of the anterior circulation bilaterally. No occlusion or significant stenosis. Communications: Call Doctor Stroke Electronically signed by: Alex Ayala MD 07/21/24 01:28 AM
--- NOTE | 2024-07-21 01:35 | CT Scan Report ---
Exam(s): CTA NECK With Contrast IV Amt: 118 ml opti 320 EXAM: CT Angiography Neck With Intravenous Contrast CLINICAL HISTORY: neuro deficit, acute stroke suspected. TECHNIQUE: Routine carotid CT angiography protocol was performed with intravenous contrast. NASCET criteria using the distal ICAs for comparison were used for evaluation of stenoses. CTDI is 13.21 mGy and DLP is 542.1 mGy-cm. Automated exposure control was utilized for the study. A dose lowering technique was utilized adhering to the principles of ALARA. MIP reconstructed images were created and reviewed. CONTRAST: Patient received 118 ml opti 320 of IV contrast COMPARISON: None. FINDINGS: Limitations: There is motion artifact, which degrades image quality on multiple image slices. VASCULATURE: Right common carotid artery: Rounded filling defect in the distal right common carotid artery (series 7; image 201) measuring 2.3 mm. Regional concentric intimal hyperplasia noted. The right common carotid artery is otherwise patent. No occlusion or significant stenosis. No dissection. Right internal carotid artery: Prominent atherosclerotic calcification of the proximal right internal carotid artery with severe, greater than 75% luminal stenosis, approximately 1.5 cm beyond the carotid bifurcation. Additional areas of mild to moderate narrowing are noted proximally secondary to probably noncalcified atheromatous changes. The mid to distal right internal carotid arteries patent. No dissection. Right external carotid artery: Unremarkable. No occlusion. Right vertebral artery: The right vertebral artery is small in caliber throughout its course, measuring only 1 mm. No occlusion or significant stenosis. No dissection. Left common carotid artery: Mild intimal hyperplasia involving the left common carotid artery. No occlusion or significant stenosis. No dissection. Left internal carotid artery: Atherosclerotic calcification of the proximal left internal carotid artery with only mild narrowing by NASCET criteria. The mid to distal left internal carotid artery is patent. No dissection. Left external carotid artery: Unremarkable. No occlusion. Left vertebral artery: The left vertebral artery is widely patent. No stenosis or occlusion. Aorta: The aortic arch is patent, although incompletely included. No dissection or aneurysm. NECK: Bones/joints: Degenerative changes of the cervical spine. The right neural foramina are asymmetrically small in caliber. No acute fracture. Soft tissues: Unremarkable. Lung apices: Clear. CAROTID STENOSIS REFERENCE USING NASCET CRITERIA: % ICA stenosis = (1 - narrowest ICA diameter/diameter of distal cervical ICA) x 100. Mild - <50% stenosis. Moderate - 50-69% stenosis. Severe - 70-94% stenosis. Near occlusion - 95-99% stenosis. Occluded - 100% stenosis. IMPRESSION: 1. Prominent atherosclerotic calcification of the proximal right internal carotid artery with severe, greater than 75% luminal stenosis, approximately 1.5 cm beyond the carotid bifurcation. Additional areas of mild to moderate narrowing are noted proximally secondary to probably noncalcified atheromatous changes. The mid to distal right internal carotid arteries patent. 2. Rounded filling defect in the distal right common carotid artery (series 7; image 201) measuring 2.3 mm. Regional concentric intimal hyperplasia noted. The appearance is most consistent with a pedunculated plaque burden; however, subtle thrombus is also a consideration. The right common carotid artery is otherwise patent. 3. The right vertebral artery is small in caliber throughout its course, measuring only 1 mm. This is a presumed congenital finding given the associated right transverse foramina. The left vertebral artery is widely patent. 4. Atherosclerotic calcification of the proximal left internal carotid artery with only mild narrowing by NASCET criteria. The mid to distal left internal carotid artery is patent. Mild intimal hyperplasia involving the left common carotid artery without significant narrowing. Communications: Call Doctor Stroke Electronically signed by: Alex Ayala MD 07/21/24 01:34 AM
[2024-07-21] MEDS: ASPIRIN 81 MG CHEW PO STA (02:40)
--- NOTE | 2024-07-21 03:50 | History & Physical Report ---
Date of Service July 21, 2024 Assessment & Plan (1) Chest pain: Plan: - EKG without acute ischemic changes - s/p 324 asp in ED - Initial trop= 7.6, repeat pending - given surgery coming up this week, consult cardiology-> possibly consider stress testing (2) History of CVA (cerebrovascular accident): Plan: - no acute changes - concern for possible thrombus on CTA-> no new symptoms. Consult neurology - continue with neuro checks - continue DAPT, statin (3) Bilateral carotid artery disease: Plan: - Plan for surgery hopefully this week - no new symptoms (4) Hypothyroid: Plan: - continue levothyroxine - mildly elevated TSH last admission, will need repeat in 4-6 weeks (5) Hypercholesteremia: Plan: - continue statin (6) Diabetes: Plan: - last hemoglobin a1c= 8 9 - SSI while inpatient, hold metformin - could consider adding SGLT2 inhibitor or GLP1 agonist as an outpatient (7) HTN (hypertension): Plan: - continue lisinopril, verapamil Plan Code: Full Diet: DM2 VTE Prophylaxis: Lovenox History of Present Illness Primary Care Provider: Delbert Guzmán MD 83 year old male with a past medical history of type 2 diabetes, TIA, CVA, vertigo, hypothyroidism, CKD, occipital neuralgia presenting with concern for chest pressure. He was recently admitted from 07/09 to 07/11 with an acute CVA in the right MCA territory. Presented then with Left UE/LE weakness. After risk/benefit discussion during that admission did not get TNK. Was start on DAPT. He is scheduled for right TCAR this week due to carotid artery stenosis. Over the past 2 days has had intermittent chest pressure. Worse when laying down, thinking about it. Denies chest pain/dyspnea with exertion. Denies radiation of pressure/pain. At time of my evaluation he was not having any symptoms. He notes continued Left UE weakness, worse in wrist/hand that has overall improved sense discharge last week. Does note some sensation in hand, that was also present prior. ED Course Significant for: Trop=7.6, EKG without acute ischemic changes, CTA Head/Neck with extensive atherosclerotic disease, greater than 75% right carotid stenosis, Rounded filling defect in the distal right common carotid artery measuring 2.3 mm. Regional concentric intimal hyperplasia noted. The appearance is most consistent with a pedunculated plaque burden; however, subtle thrombus is also a consideration. Allergies Allergy/AdvReac Type Severity Reaction Status Date / Time shellfish derived Allergy Intermediate Diarrhea Verified 07/16/24 10:16 Home Medications Medication Instructions Recorded Confirmed Type levothyroxine 25 mcg tablet 25 mcg PO DAILYBB 08/19/19 07/21/24 History verapamil 180 mg tablet,extended 180 mg PO QAM 08/19/19 07/21/24 History release metformin 500 mg tablet 1,000 mg PO BID 04/15/21 07/21/24 History oxybutynin chloride 10 mg 10 mg PO QAM 01/19/24 07/21/24 History tablet,extended release 24 hr aspirin 81 mg tablet,delayed 81 mg PO QAM 01/24/24 07/21/24 History release atorvastatin 40 mg tablet 80 mg (2 x 40 mg) PO HS #30 tabs 07/11/24 07/21/24 Rx clopidogrel 75 mg tablet (Plavix) 75 mg PO QAM 07/16/24 07/21/24 History lisinopril 5 mg tablet 5 mg PO QAM 07/16/24 07/21/24 History Past Med/Surg History Problem List Chest pressure Chest pain (Acute) Encounter for pre-operative examination Bilateral carotid artery disease HTN (hypertension) (Acute) Gout Hyperglycemia due to type 2 diabetes mellitus Acute foot pain (Acute) TIA (transient ischemic attack) CVA vs TIA 2012 History of CVA (cerebrovascular accident) (Acute) 07/09/24 Numbness and tingling of right arm (Acute) Dizziness (Acute) Vertigo Hypothyroid Hypercholesteremia Diabetes Kidney disease Upper extremity neuropathy (Acute 10/06/13) Occipital neuralgia (Acute) Left ear injury (Acute) Headache (Acute) Stomach problems (Chronic) Urinary problem (Chronic) Medical History LVH (left ventricular hypertrophy) severe cLVH per 07/10/24 ECHO CKD (chronic kidney disease) History of depression r/t first stroke - no issues currently Hypothyroidism HTN (hypertension) Gout 01/24/24-01/25/24 [facility]; Rx colchicine Diabetes mellitus, type 2 Hx: UTI (urinary tract infection) 01/2024 [facility] admission sepsis 2/2 UTI; resolved Hx of sepsis /2 to UTI 01/2024 admission Carotid stenosis 07/09/24 imagin% stenosis of the proximal right ICA and 60% stenosis on the left History of bladder cancer 2010; s/p BCG tx Urinary frequency CVA (cerebral vascular accident) 06/2013 in [place] (CVA vs TIA per chart review) 07/09/24 [facility]: presented with LUE weakness; 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, associated 90% proximal R ICA stenosis, 60% stenosis L; plan for R TCAR; per pt, no residual sx Surgical History Hx of Achilles tendon repair Right Hx of colonoscopy Hx of appendectomy Family History Mother , age 84 of uncertain cause Hypertension Father , age 64 with tuberculosis Tuberculosis Social History Smoking Status: Never smoker Tobacco Type: Cigarettes Second Hand Exposure: No; Do You Dip or Chew Tobacco: No; Hx Alcohol Use: Yes Alcohol type: wine Alcohol Intake Frequency Comment: 1 glass with dinner 4 times per week Hx Substance Use: No Preferred Language: Danish Communication Ability: Effective Hearing Care Practitioner Required: No Beliefs That Will Affect Care: None Current Living Situation: Spouse Current Living Situation Comment: Lives with at [facility]. 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 CN II-XII intact. 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 Assessment and Plan: Atypical chest pain/hypertension- The patient will be admitted to telemetry for serial cardiac enzymes, serial EKG's, cardiac rhythm monitoring and a 2-D echocardiogram with Dopplers. Initial troponin 7.6, with follow-up pending Given aspirin 324 mg in ED, and will continue 81 mg daily Continue lisinopril and verapamil Consult cardiology, as patient will need to be evaluated for prior to upcoming surgery History of CVA/carotid artery disease- CT head negative CTA head negative CTA neck with proximal CYNTHIA greater than 75% Distal R CCA with possible area of intimal hyperplasia/versus subtle thrombus Scheduled for upcoming endarterectomy Neurochecks as noted Continue DAPT and atorvastatin 80 mg daily Consult neurology Diabetes mellitus- Hold metformin Place on Accu-Cheks with NovoLog SSI Resident Activity Tracking Resident Involvement: Resident Care Provided Care Provided: Adult Hospital Medicine (1) Chest pain Chest pain type: unspecified Qualified Code(s): R07.9 - Chest pain, unspecified (7) HTN (hypertension) Hypertension type: unspecified Qualified Code(s): I10 - Essential (primary) hypertension
[2024-07-21] MEDS ORDERED: PHARMACIST DISCHARGE MED REC CONSULT PRN (04:10)
[2024-07-21] MEDS ORDERED: CARBOHYDRATES FOR HYPOGLYCEMIA PO PRN (04:13)
[2024-07-21] MEDS ORDERED: GLUCOSE 10 TAB/TUBE PO PRN (04:13)
[2024-07-21] MEDS ORDERED: DEXTROSE 50% 50 ML SYRINGE IV PRN (04:13)
[2024-07-21] MEDS ORDERED: GLUCOSE 40% GEL 15 GM TUBE PO PRN (04:13)
[2024-07-21 04:58] LABS: BUN Creatinine Ratio 20.2 (10-20); Creatinine Clr Calc Pharmacy 61.9 ml/min; Est GFR (African American) 92.3 ml/min; Est GFR (Non-African American) 79.6 ml/min
[2024-07-21 05:05] LABS: Troponin I High Sensitivity 7.1 pg/ml (0-20)
[2024-07-21 07:08] LABS: iSTAT Ionized Calcium 1.23 mmol/l (1.12-1.32); iSTAT Potassium 3.9 mmol/L (3.3-5.0)
--- NOTE | 2024-07-21 07:54 | Neurology Consultation ---
Date of Consultation July 21, 2024 Assessment & Plan (1) Bilateral carotid artery disease: History of Present Illness Attending Physician: Terence Saini, DO History of Present Illness called to eval for CTA report of ?thrombus. He has known carotid disease and plan for surgery this week. pt states he does not have chest pain but feeling anxiety and worry about his condition and that is why he felt "pressure" on his chest. CTA reported plaque and stenosis as reported. pt had stroke last week and currently stable from it. no new deficits. admission HPI: 83 year old male with a past medical history of type 2 diabetes, TIA, CVA, vertigo, hypothyroidism, CKD, occipital neuralgia presenting with concern for chest pressure. He was recently admitted from 07/09 to 07/11 with an acute CVA in the right MCA territory. Presented then with Left UE/LE weakness. After risk/benefit discussion during that admission did not get TNK. Was start on DAPT. He is scheduled for right TCAR this week due to carotid artery stenosis. Over the past 2 days has had intermittent chest pressure. Worse when laying down, thinking about it. Denies chest pain/dyspnea with exertion. Denies radiation of pressure/pain. At time of my evaluation he was not having any symptoms. He notes continued Left UE weakness, worse in wrist/hand that has overall improved sense discharge last week. Does note some sensation in hand, that was also present prior. ED Course Significant for: Trop=7.6, EKG without acute ischemic changes, CTA Head/Neck with extensive atherosclerotic disease, greater than 75% right carotid stenosis, Rounded filling defect in the distal right common carotid artery measuring 2.3 mm. Regional concentric intimal hyperplasia noted. The appearance is most consistent with a pedunculated plaque burden; however, subtle thrombus is also a consideration. Allergies Allergy/AdvReac Type Severity Reaction Status Date / Time shellfish derived Allergy Intermediate Diarrhea Verified 07/16/24 10:16 Home Medications Medication Instructions Recorded Confirmed Type levothyroxine 25 mcg tablet 25 mcg PO DAILYBB 08/19/19 07/16/24 History verapamil 180 mg tablet,extended 180 mg PO QAM 08/19/19 07/16/24 History release metformin 500 mg tablet 1,000 mg PO BID 04/15/21 07/16/24 History oxybutynin chloride 10 mg 10 mg PO QAM 01/19/24 07/16/24 History tablet,extended release 24 hr aspirin 81 mg tablet,delayed 81 mg PO QAM 01/24/24 07/16/24 History release atorvastatin 40 mg tablet 80 mg (2 x 40 mg) PO HS #30 tabs 07/11/24 07/16/24 Rx clopidogrel 75 mg tablet (Plavix) 75 mg PO QAM 07/16/24 07/16/24 History lisinopril 5 mg tablet 5 mg PO QAM 07/16/24 07/16/24 History Patient History Medical History LVH (left ventricular hypertrophy) severe cLVH per 07/10/24 ECHO CKD (chronic kidney disease) History of depression r/t first stroke - no issues currently Hypothyroidism HTN (hypertension) Gout 01/24/24-01/25/24 [facility]; Rx colchicine Diabetes mellitus, type 2 Hx: UTI (urinary tract infection) 01/2024 [facility] admission sepsis / UTI; resolved Hx of sepsis 12/08 to UTI 01/2024 admission Carotid stenosis 07/09/24 imagin% stenosis of the proximal right ICA and 60% stenosis on the left History of bladder cancer 2010; s/p BCG tx Urinary frequency CVA (cerebral vascular accident) 06/2013 in [place] (CVA vs TIA per chart review) 07/09/24 [facility]: presented with LUE weakness; 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, associated 90% proximal R ICA stenosis, 60% stenosis L; plan for R TCAR; per pt, no residual sx Surgical History Hx of Achilles tendon repair Right Hx of colonoscopy Hx of appendectomy Family History Mother , age 84 of uncertain cause Hypertension Father , age 64 with tuberculosis Tuberculosis Social History Smoking Status: Never smoker Tobacco Type: Cigarettes Second Hand Exposure: No; Do You Dip or Chew Tobacco: No; Tobacco Cessation Education Requested by Patient: No Hx Alcohol Use: Yes Alcohol type: wine Alcohol Intake Frequency Comment: 1 glass with dinner 4 times per week Hx Substance Use: No Preferred Language: Hungarian Communication Ability: Effective Antique Repairer Required: No Beliefs That Will Affect Care: None Current Living Situation: Spouse Current Living Situation Comment: Lives with at the [facility]. 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 Sens: intact to touch b/l grossly Coord: intact FNT b/l DTR: 1+ sym b/l Gait: deferred Impression: 83 yo male with recent rt MCA area ischemic stroke with minimal deficits. His CTA finding is consistent with plaque related stenosis but no obvious thrombosis for complete blockage. His overall management does not change at this point. Pt already on DAPT, no clear indication for anticoagulation. His anxiety likely also contributing to his overall symptoms. Recommendations: agree with plan for carotid surgery by vascular this week. continue DAPT avoid hypotension and dehydration. improve anxiety no new recommendations from neurology call again if new question. Chart reviewed I have spent more than 50% educating patient about potential diagnosis and neurological evaluation and coordinating care with patient's treatment team. Total time spent (including chart review and coordination of care): 45 min (this includes chart review). Results & Data Vital Signs (Past 12 Hours) Vital Signs Temp Pulse Pulse Resp BP BP Pulse Ox 07/21/24 07:30 71 18 187/103 H 96 07/21/24 07:13 72 07/21/24 06:24 67 22 218/108 H 97 07/21/24 05:39 36.6 C 70 16 188/91 H 95 07/21/24 05:33 36.6 C 71 18 188/91 H 96 07/21/24 03:00 70 18 178/92 H 97 07/21/24 02:37 67 18 175/79 H 96 07/21/24 02:37 67 18 96 07/21/24 01:15 67 07/21/24 01:01 72 16 171/85 H 95 07/21/24 00:17 36.4 C L 61 18 203/95 H 96 O2 Del Method 07/21/24 07:30 Room Air 07/21/24 07:13 07/21/24 06:24 Room Air 07/21/24 05:39 Room Air 07/21/24 05:33 Room Air 07/21/24 03:00 Room Air 07/21/24 02:37 Room Air 07/21/24 02:37 Room Air 07/21/24 01:15 07/21/24 01:01 Room Air 07/21/24 00:17 Room Air PG Care Time/CCT Total # of Minutes Spent Total Time Spent with Patient: Total time spent is greater than 50% in coordination of care (as documented) at patient's floor/unit and/or counseling patient: Coding Level of Care Code 55047 IN/OBS CONSULT LVL 3,45M Diagnoses Bilateral carotid artery stenosis I65.23 Carotid artery disease type: stenosis (1) Bilateral carotid artery disease Carotid artery disease type: stenosis Qualified Code(s): I65.23 - Occlusion and stenosis of bilateral carotid arteries
[2024-07-21 08:19] LABS: Basophils # (auto) 0.05 K/uL (0.00-0.20); Basophils % (auto) 0.9 %; Eosinophils # (auto) 0.17 K/uL (0.00-0.50); Hematocrit (blood only) 41.7 % (42.0-52.0); Hemoglobin 14.4 g/dl (14.0-18.0); Immature Granulocytes # (auto) 0.03 K/uL (0.01-0.20); Immature Granulocytes % (auto) 0.5 %; Lymphocytes % (auto) 28.2 %; Mean Corpuscular Hemoglobin 30.4 pg (25.0-34.0); Mean Corpuscular Hgb Conc 34.5 g/dL (32.0-36.0); Mean Corpuscular Volume 88.2 fL (80.0-100.0); Mean Platelet Volume 9.2 fL (9.4-12.4); Monocytes # (auto) 0.56 K/uL (0.11-0.59); Monocytes % (auto) 9.9 %; Neutrophils # (auto) 3.27 K/uL (1.40-6.50); Neutrophils % (auto) 57.5 %; Platelet Count 175 K/uL (130-400); RDW Coefficient of Variation 11.9 % (11.5-14.5); RDW Standard Deviation 38.5 fL (36.4-46.3); Red Blood Count 4.73 M/uL (4.70-6.10); White Blood Count 5.68 K/ul (4.8-10.8)
[2024-07-21] MEDS: VERAPAMIL HCL 180 MG TABCR PO SCH (08:19)
[2024-07-21] MEDS: lisinopril 5 MG TAB PO SCH (08:19)
[2024-07-21] MEDS: CLOPIDOGREL BISULFATE 75 MG TAB PO SCH (08:19)
[2024-07-21] MEDS: LEVOTHYROXINE SODIUM 25 MCG TABLET PO SCH (08:19)
[2024-07-21] MEDS: OXYBUTYNIN CHLORIDE XL 5 MG TABCR PO SCH (08:19)
--- NOTE | 2024-07-21 08:33 | XRay Report ---
XR chest 1V portable CLINICAL HISTORY: neuro deficit, acute stroke suspected TECHNIQUE: Single frontal radiograph of the chest was obtained. Comparison: Comparison is made to chest radiograph 07/09/2024 FINDINGS: No lines and tubes are seen. The cardiomediastinal silhouette is normal. The lungs are clear. No evid ence of pleural effusion or pneumothorax. IMPRESSION: No acute chest disease. ACT 112: Negative or not required by law. Electronically signed by: Miko Mcduffie M.D. 07/21/2024 8:31 AM
[2024-07-21] MEDS ORDERED: metFORMIN HCL 500 MG TAB PO SCH (09:00)
[2024-07-21] MEDS: INSULIN ASPART PER UNIT CHARGE SC SCH (09:50)
--- NOTE | 2024-07-21 10:07 | Cardiology Consultation ---
Date of Consultation July 21, 2024 Assessment & Plan (1) Chest pressure: (2) Bilateral carotid artery disease: (3) Hypercholesteremia: Plan 1. Chest pressure: This occurs with emotional upset and not exercise and I suspect is not cardiac. However he does have risk of coronary artery disease since he has carotid disease and angina can occur with emotional upset. I think it would be safest to perform stress testing and I would recommend doing it tomorrow morning. I believe he can walk on a treadmill and I can schedule a stress test tomorrow morning as a stress echo. 2. Carotid disease: Scheduled for right carotid surgery Monday, I am concerned that if we do not evaluate his chest discomfort that surgery will be canceled. 3. Hypercholesterolemia: His cholesterol was greater than ideal at the time of his presentation with a stroke and he was on Lipitor 20 mg daily. That has been increased to 80 mg daily, it is too early to repeat his cholesterol measurements and it is likely they will be acceptable but that remains to be seen. I would continue the current dose. History of Present Illness Reason for Consultation: Chest discomfort Attending Physician: Terence Saini, History of Present Illness This is an 83-year-old male with a history of hypercholesterolemia, hyper tension, diabetes mellitus and atherosclerotic disease. He has bilateral carotid artery disease from which he had a CVA in the right middle cerebral artery territory on July 09, 2024 and he also has left carotid disease. He did have a transthoracic echo done July 10, 2024 where he had normal left ventricular systolic function with severe concentric left ventricular hypertrophy and no obvious source of embolization. He is planned to have right carotid artery surgery in the next week. His cholesterol levels July 10, 2024 was 188 with an HDL of 51, his non-HDL cholesterol was therefore 137 which is higher than we would like with atherosclerosis. He was on atorvastatin 20 mg daily at that time, that has been increased to 80 mg daily during his hospitalization 2 weeks ago. He presents now with headache, chest pressure and left upper extremity weakness. This worsened on the evening of July 20, 2024 and he presented to the emergency room just after midnight on July 21, 2024. Neurology feels that there has been no new deficit since his initial stroke several weeks ago. His electrocardiogram on presentation this admission shows sinus rhythm at 61 bpm with lateral T wave inversion and precordial J-point elevation. His electrocardiogram from July 09, 2024 is very similar. Laboratory studies this admission include high-sensitivity troponin measurements twice which are 7.6 and 7.1 suggesting no ischemic component. I discussed his symptoms with him with his family present. He relates a substernal heaviness which is primarily associated with emotional upset and worry about his upcoming surgery and future. He does not have exertional chest discomfort. He does not have radiation to his left arm (he does have left arm symptoms but it does not sound like radiation) or to his neck or back. Allergies Allergy/AdvReac Type Severity Reaction Status Date / Time shellfish derived Allergy Intermediate Diarrhea Verified 07/16/24 10:16 Home Medications Medication Instructions Recorded Confirmed Type levothyroxine 25 mcg tablet 25 mcg PO DAILYBB 08/19/19 07/21/24 History verapamil 180 mg tablet,extended 180 mg PO QAM 08/19/19 07/21/24 History release metformin 500 mg tablet 1,000 mg PO BID 04/15/21 07/21/24 History oxybutynin chloride 10 mg 10 mg PO QAM 01/19/24 07/21/24 History tablet,extended release 24 hr aspirin 81 mg tablet,delayed 81 mg PO QAM 01/24/24 07/21/24 History release atorvastatin 40 mg tablet 80 mg (2 x 40 mg) PO HS #30 tabs 07/11/24 07/21/24 Rx clopidogrel 75 mg tablet (Plavix) 75 mg PO QAM 07/16/24 07/21/24 History lisinopril 5 mg tablet 5 mg PO QAM 07/16/24 07/21/24 History Patient History Medical History LVH (left ventricular hypertrophy) severe cLVH per 07/10/24 ECHO CKD (chronic kidney disease) History of depression r/t first stroke - no issues currently Hypothyroidism HTN (hypertension) Gout 01/24/24-01/25/24 [facility]; Rx colchicine Diabetes mellitus, type 2 Hx: UTI (urinary tract infection) 01/2024 [facility] admission sepsis 2/2 UTI; resolved Hx of sepsis 2/2 to UTI 01/2024 admission Carotid stenosis 07/09/24 imagin% stenosis of the proximal right ICA and 60% stenosis on the left History of bladder cancer 2010; s/p BCG tx Urinary frequency CVA (cerebral vascular accident) 06/2013 in [place] (CVA vs TIA per chart review) 07/09/24 [facility]: presented with LUE weakness; 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, associated 90% proximal R ICA stenosis, 60% stenosis L; plan for R TCAR; per pt, no residual sx Surgical History Hx of Achilles tendon repair Right Hx of colonoscopy Hx of appendectomy Family History Mother , age 84 of uncertain cause Hypertension Father , age 64 with tuberculosis Tuberculosis Social History Smoking Status: Never smoker Tobacco Type: Cigarettes Second Hand Exposure: No; Do You Dip or Chew Tobacco: No; Hx Alcohol Use: Yes Alcohol type: wine Alcohol Intake Frequency Comment: 1 glass with dinner 4 times per week Hx Substance Use: No Preferred Language: Armenian Communication Ability: Effective Children'S Tutor Required: No Beliefs That Will Affect Care: None Current Living Situation: Spouse Current Living Situation Comment: [facility] with at [facility]. 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 HEENT: Unremarkable Neck: No jugular venous distention, carotid pulses are normal and equal bilaterally. Pulmonary: Clear to auscultation bilaterally. Cardiac: Regular rhythm with no murmur, gallop or rub. Abdomen: Soft, nontender with normal bowel sounds. Extremities: No edema. Neurologic: No clear focal findings. Skin: No rash, ecchymoses or petechiae. Results & Data Vital Signs (Past 12 Hours) Vital Signs Temp Pulse Pulse Resp BP BP Pulse Ox 07/21/24 09:00 178/98 H 07/21/24 07:30 71 18 187/103 H 96 07/21/24 07:13 72 07/21/24 06:24 67 22 218/108 H 97 07/21/24 05:39 36.6 C 70 16 188/91 H 95 07/21/24 05:33 36.6 C 71 18 188/91 H 96 07/21/24 03:00 70 18 178/92 H 97 07/21/24 02:37 67 18 175/79 H 96 07/21/24 02:37 67 18 96 07/21/24 01:15 67 07/21/24 01:01 72 16 171/85 H 95 07/21/24 00:17 36.4 C L 61 18 203/95 H 96 O2 Del Method 07/21/24 09:00 07/21/24 07:30 Room Air 07/21/24 07:13 07/21/24 06:24 Room Air 07/21/24 05:39 Room Air 07/21/24 05:33 Room Air 07/21/24 03:00 Room Air 07/21/24 02:37 Room Air 07/21/24 02:37 Room Air 07/21/24 01:15 07/21/24 01:01 Room Air 07/21/24 00:17 Room Air Laboratory Results Cardiac Enzymes 07/21/24 07/21/24 07/21/24 Range/Units 00:34 04:15 04:22 AST 33 (13-39) U/L Troponin I High Sens 7.6 Cancelled 7.1 (0-20) pg/ml Coagulation 07/21/24 Range/Units 00:34 PT 10.9 (9.0-12.0) Seconds APTT 25 (21-31) Seconds CBC 07/21/24 07/21/24 Range/Units 00:34 07:48 WBC 6.68 5.68 (4.8-10.8) K/ul RBC 4.70 4.73 (4.70-6.10) M/uL Hgb 14.4 14.4 (14.0-18.0) g/dl Hct 42.6 41.7 L (42.0-52.0) % Plt Count 185 175 (130-400) K/uL Neut # (Auto) 3.30 3.27 (1.40-6.50) K/uL Lymph # (Auto) 2.29 1.60 (1.20-3.40) K/uL [place] # (Auto) 0.77 H 0.56 (0.11-0.59) K/uL Eos # (Auto) 0.26 0.17 (0.00-0.50) K/uL Baso # (Auto) 0.03 0.05 (0.00-0.20) K/uL Comprehensive Metabolic Panel 07/21/24 07/21/24 Range/Units 00:34 04:22 Sodium 138 139 (136-145) mmol/L Potassium 3.9 4.0 (3.5-5.1) mmol/L Chloride 104 107 (98-107) mmol/L Carbon Dioxide 27 25 (21-32) mmol/L BUN 19 18 (6-23) mg/dl Creatinine 0.98 0.89 (0.6-1.4) mg/dl Glucose 127 H 103 H (70-99(Fasting)) mg/dl Calcium 9.5 9.0 (8.6-10.3) mg/dl AST 33 (13-39) U/L ALT 65 H (7-52) U/L Alkaline Phosphatase 68 (34-104) U/L Total Protein 7.6 (6.0-8.3) gm/dl Albumin 4.4 (3.4-5.0) gm/dl Intake and Output 07/21/24 07/21/24 07/21/24 06:59 14:59 22:59 Intake Total 0 / 0 200 / 200 Balance 0 / 0 200 / 200 Intake: Oral 0 / 0 200 / 200 Other: # Unmeasured Voids 1 Weight 73 kg Weight Measurement Method Built in [facility] Diagnostic Findings Telemetry: Sinus rhythm, rate in the 70s. PG Care Time/CCT Total # of Minutes Spent Total Time Spent with Patient: Total time spent is greater than 50% in coordination of care (as documented) at patient's floor/unit and/or counseling patient: Coding Level of Care Code 18917 INT INP/OBS CARE 3/75MIN Diagnoses Chest pressure R07.89 Bilateral carotid artery stenosis I65.23 Carotid artery disease type: stenosis Hypercholesteremia E78.00 (2) Bilateral carotid artery disease Carotid artery disease type: stenosis Qualified Code(s): I65.23 - Occlusion and stenosis of bilateral carotid arteries
--- NOTE | 2024-07-21 12:09 | Hospitalist Progress Note ---
Date of Service July 21, 2024 Assessment & Plan (1) Chest pain: Plan: - Pt reports ~2d chest pressure that is constant and a/w LIRIANO - HS trop = 7.6, repeat 7.1 - EKG without acute ischemic changes - given duration of sx, normal cardiac enzymes & ekg, OK r/o - seen by cardiology: reccs getting stress echo before TCAR; increase lipitor to 80mg daily (2) History of CVA (cerebrovascular accident): Plan: - no new deficits, negative head CT, CTA - R carotid occlusion 75%, unchanged from prior - scheduled for TCAR on Mon (07/24) - neurology consulted: continue DAPT, statin; proceed w procedure later this week (3) HTN (hypertension): Plan: - BPs >170/90 for most of stay; notably, repeat readings after discussion of condition & prognosis = 125/72 - continue lisinopril, verapamil (4) Bilateral carotid artery disease: Plan: - No new symptoms - TCAR scheduled for 07/24 - may need stress echo in order to be cleared for procedure (5) Hypothyroid: Plan: - continue levothyroxine - mildly elevated TSH last admission, will need repeat in 4-6 weeks (6) Hypercholesteremia: Plan: - continue statin (7) Diabetes: Plan: - last hemoglobin a1c= 8 07/10 - SSI while inpatient, hold metformin - could consider adding SGLT2 inhibitor or GLP1 agonist as an outpatient Plan Code: Full Diet: DM2 VTE Prophylaxis: Lovenox Admission and Anticipated Discharge Date Admission Date: July 21, 2024 Supervising Physician Co-Signing Physician Notes I personally examined the patient and verified all walker points of history and exam, discussed case, and agree with decision making with Dr Dee feeling okay. Notes that he is pretty sure his chest pain was due to stress. Was lasting for several days absolutely unremitting. His left arm symptoms wax and wane mildly, but generally are in the same degree of motor and sensory impairment since he left the hospital after a stroke. No new left sided weakness elsewhereno face weakness no leg weakness. He is able to walk wellhis granddaughter actually took him around the hallway several times and he performed well. He has no right eye blindness. Extensive discussion with patient and family on his overall situationanswered all questions the best my ability and to their satisfaction. Chest painexceedingly consistent with stress/anxietyhe has this as his lead differential as well. Cardiac enzymes negative which is quite reassuring given how long the pain has been lasting. Cardiology feels it best to stress test himnot as much out of concern for this truly being cardiac, but out of concern that anything getting in the way of his TCAR would be detrimental to his overall health and recoveryand wanted to ensure that this episode of chest pain does not lead to a delay in his procedure. Strokedue to carotid disease. Does not sound at all like he is having any new symptoms. Continue med management secondary risk reduction for now. TCAR on Monday. Easily an hour in the room [id number] with extensive discussions Subjective Patient reports chest pressure, which he clarifies is not "pain," as well as headache since Monday. Several family members are present at bedside and contribute to this history. He reports his symptoms are constant and have gotten progressively worse and that, during this time, he has been feeling very anxious due to not having a clear explanation of his recent stroke and also due to his upcoming TCAR. His family reports his L hand weakness is not changed much since the stroke, and he is still able to fully move it, just not with the same speed or control. He says what finally brought him to the hospital after >1 day of the head and chest sx was his left forearm starting to feel numb, last night. He reports his sx resolved quickly after being given nitroglycerin. Today, he has no head ache or chest discomfort. He is able to move his hand, clench and unclench his fist, and feeds himself normally. He denies SOB, weakness or sensory disturbance in any other area. had extensive conversation w pt + fam about condition, tx options/risks/benefits, prognosis, and options for adapting to life with L hand impaired. pt reports feeling much more relieved about condition and confident his about past and future healthcare decisions. Physical Exam Physical Exam: Constitutional: well-appearing, no acute distress HEENT: NCAT CV: RRR, no LE edema Resp: CTAB, normal resp effort, symmetric chest rise GI: soft, nondistended, nontender MSK: no gross deformities appreciated Skin: warm, dry, no rash appreciated Neuro: AOx3; CN III-XII intact. Str 03/10 b/l LE & RUE. 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 Results & Data Results & Data Vital Signs (Past 12 Hours) Vital Signs Temp Pulse Pulse Resp BP BP Pulse Ox 07/21/24 11:30 81 07/21/24 09:00 178/98 H 07/21/24 07:30 71 18 187/103 H 96 07/21/24 07:13 72 07/21/24 06:24 67 22 218/108 H 97 07/21/24 05:39 36.6 C 70 16 188/91 H 95 07/21/24 05:33 36.6 C 71 18 188/91 H 96 07/21/24 03:00 70 18 178/92 H 97 07/21/24 02:37 67 18 175/79 H 96 07/21/24 02:37 67 18 96 07/21/24 01:15 67 07/21/24 01:01 72 16 171/85 H 95 07/21/24 00:17 36.4 C L 61 18 203/95 H 96 O2 Del Method 07/21/24 11:30 07/21/24 09:00 07/21/24 07:30 Room Air 07/21/24 07:13 07/21/24 06:24 Room Air 07/21/24 05:39 Room Air 07/21/24 05:33 Room Air 07/21/24 03:00 Room Air 07/21/24 02:37 Room Air 07/21/24 02:37 Room Air 07/21/24 01:15 07/21/24 01:01 Room Air 07/21/24 00:17 Room Air Resident Activity Tracking Resident Involvement: Resident Care Provided Care Provided: Adult Hospital Medicine (1) Chest pain Chest pain type: unspecified Qualified Code(s): R07.9 - Chest pain, unspecified (3) HTN (hypertension) Hypertension type: unspecified Qualified Code(s): I10 - Essential (primary) hypertension (4) Bilateral carotid artery disease Carotid artery disease type: stenosis Qualified Code(s): I65.23 - Occlusion and stenosis of bilateral carotid arteries
[2024-07-21] MEDS ORDERED: STROKE PATIENT DISCHARGE STA (15:45)
[2024-07-21] MEDS: ENOXAPARIN INJ 40 MG/0.4 ML SYR SQ SCH (18:11)
--- NOTE | 2024-07-21 19:48 | Billing Data ---
Date of Service July 21, 2024 Coding Level of Care Code 06976 SUB INP/OBS CARE MIN
--- NOTE | 2024-07-21 19:59 | Billing Data ---
Date of Service July 21, 2024 Coding Level of Care Code 08027 INT INP/OBS CARE
[2024-07-21] MEDS: ATORVASTATIN 40 MG TAB PO SCH (21:02)
[2024-07-21] MEDS: MELATONIN 3 MG TAB PO PRN (21:03)
[2024-07-22 03:28] VITALS: O2SAT 94
[2024-07-22 06:20] LABS: Basophils # (auto) 0.04 K/uL (0.00-0.20); Basophils % (auto) 0.6 %; Eosinophils # (auto) 0.17 K/uL (0.00-0.50); Eosinophils % (auto) 2.7 %; Hematocrit (blood only) 41.3 % (42.0-52.0); Immature Granulocytes # (auto) 0.02 K/uL (0.01-0.20); Immature Granulocytes % (auto) 0.3 %; Lymphocytes # (auto) 2.13 K/uL (1.20-3.40); Lymphocytes % (auto) 33.8 %; Mean Corpuscular Hemoglobin 30.2 pg (25.0-34.0); Mean Corpuscular Hgb Conc 33.9 g/dL (32.0-36.0); Mean Platelet Volume 9.3 fL (9.4-12.4); Monocytes # (auto) 0.69 K/uL (0.11-0.59); Monocytes % (auto) 10.9 %; Neutrophils # (auto) 3.26 K/uL (1.40-6.50); Neutrophils % (auto) 51.7 %; Platelet Count 177 K/uL (130-400); RDW Coefficient of Variation 12.1 % (11.5-14.5); RDW Standard Deviation 39.3 fL (36.4-46.3); Red Blood Count 4.64 M/uL (4.70-6.10); White Blood Count 6.31 K/ul (4.8-10.8)
[2024-07-22 06:39] LABS: BUN Creatinine Ratio 21.9 (10-20); Calcium 9.2 mg/dl (8.6-10.3); Creatinine Clr Calc Pharmacy 52.5 ml/min; Est GFR (African American) 76.2 ml/min; Est GFR (Non-African American) 65.8 ml/min; Potassium 3.9 mmol/L (3.5-5.1)
[2024-07-22] MEDS: ASPIRIN 81 MG ECTAB PO SCH (07:50)
[2024-07-22 08:00] VITALS: TEMP 97.9
[2024-07-22] MEDS: lisinopril 5 MG TAB PO ONE (10:47)
[2024-07-22 12:33] VITALS: BP 156/70; RESP 18
--- NOTE | 2024-07-22 14:00 | Hospitalist Progress Note ---
Date of Service July 22, 2024 Assessment & Plan (1) Chest pain: Plan: - Pt admitted with ~2d chest pressure, EKG no acute changes on admission. Trops HS trop = 7.6, repeat 7.1. No further events of chest discomfort during this admission. Tele no events. - seen by cardiology:stress test done today Planned for TCAR on 07/22 C/W DAPT C/W Atorvastatin 80mg (2) History of CVA (cerebrovascular accident): Plan: - no new neurology, negative head CT, CTA -residual LUIS handgrip -5/5 - R carotid occlusion 75%, unchanged from prior - neurology consulted: continue CHAI, statin. - scheduled for TCAR on Mon (07/24) (3) HTN (hypertension): Plan: - BP this am 185/80s. - continue lisinopril, verapamil (4) Bilateral carotid artery disease: Plan: - No new symptoms - TCAR scheduled for 07/24 - may need stress echo in order to be cleared for procedure (5) Hypothyroid: Plan: - continue levothyroxine - mildly elevated TSH last admission, will need repeat in 4-6 weeks (6) Hypercholesteremia: Plan: - continue statin (7) Diabetes: Plan: - last hemoglobin a1c= 8 07/10 - SSI while inpatient, hold metformin - could consider adding SGLT2 inhibitor or GLP1 agonist as an outpatient Plan Code: Full Diet: DM2 VTE Prophylaxis: Lovenox Admission and Anticipated Discharge Date Admission Date: July 21, 2024 Subjective Pt was seen and evaluated by the bedside. He denies any chest discomfort, SoB, palpitations this morning. He denies any change in weakness in his limbs. He denies SOB, weakness or sensory disturbance in any other area. No overnight events as per the nurse. There are no further episodes of chest pain as per nurse. Pt underwent stress test this morning awaiting for report from Cardio. His BP was elevated in 180s/80s we have increased his lisinopril from 5mg to 10mg daily. Results & Data Results & Data Vital Signs (Past 12 Hours) Vital Signs Temp Pulse Pulse Resp BP Pulse Ox O2 Del Method 07/22/24 12:32 36.6 C 68 18 156/70 H 94 Room Air 07/22/24 09:52 171/82 H 07/22/24 09:21 Room Air 07/22/24 09:08 187/78 H 07/22/24 07:59 36.6 C 66 19 197/87 H 94 Room Air 07/22/24 07:00 62 07/22/24 03:26 36.4 C L 66 18 121/78 94 Room Air (1) Chest pain Chest pain type: unspecified Qualified Code(s): R07.9 - Chest pain, unspecified (3) HTN (hypertension) Hypertension type: unspecified Qualified Code(s): I10 - Essential (primary) hypertension (4) Bilateral carotid artery disease Carotid artery disease type: stenosis Qualified Code(s): I65.23 - Occlusion and stenosis of bilateral carotid arteries
--- NOTE | 2024-07-22 14:45 | Discharge Summary ---
Date of Service July 22, 2024 Admission HPI Per Admitting Provider 83 year old male with a past medical history of type 2 diabetes, TIA, CVA, vertigo, hypothyroidism, CKD, occipital neuralgia presenting with concern for chest pressure. He was recently admitted from 07/09 to 07/11 with an acute CVA in the right MCA territory. Presented then with Left UE/LE weakness. After risk/benefit discussion during that admission did not get TNK. Was start on DAPT. He is scheduled for right TCAR this week due to carotid artery stenosis. Over the past 2 days has had intermittent chest pressure. Worse when laying down, thinking about it. Denies chest pain/dyspnea with exertion. Denies radiat ion of pressure/pain. At time of my evaluation he was not having any symptoms. He notes continued Left UE weakness, worse in wrist/hand that has overall improved sense discharge last week. Does note some sensation in hand, that was also present prior. ED Course Significant for: Trop=7.6, EKG without acute ischemic changes, CTA Head/Neck with extensive atherosclerotic disease, greater than 75% right carotid stenosis, Rounded filling defect in the distal right common carotid artery measuring 2.3 mm. Regional concentric intimal hyperplasia noted. The appearance is most consistent with a pedunculated plaque burden; however, subtle thrombus is also a consideration. Admission Exam Per Admitting Provider Constitutional: well-appearing, no acute distress HEENT: NCAT, no conjunctival injection CV: regular rhythm, no murmur appreciated, extremities well-perfused, no LE edema Resp: CTABL, no wheezes/rales/rhonchi appreciated, no increased work of breathing GI: soft, nondistended, nontender MSK: no gross deformities appreciated Skin: warm, dry, no rash appreciated Neuro: alert, oriented, no focal neurologic deficit appreciated. CN II-XII intact. Strength 5/5 LE B/L, Decreased corrugator strength left compared to right Principal Diagnosis chest pain Discharge Exam Constitutional: well-appearing, no acute distress HEENT: NAD CV: RRR, no LE edema Resp: CTAB, normal resp effort, symmetric chest rise GI: soft, nondistended, nontender MSK: no gross deformities appreciated Skin: warm, dry, no rash appreciated Neuro: AOx3; CN III-XII intact. Str 5/5 b/l LE & RUE. Str 3/5, corrugator strength and coordination impaired Discharge Data Allergies Allergy/AdvReac Type Severity Reaction Status Date / Time shellfish derived Allergy Intermediate Diarrhea Verified 07/16/24 10:16 Consultations 07/21/24 01:45 ED Decision to Admit Stat 07/21/24 03:02 Consult Cardiology Routine Consult Neurology Routine Ordered Studies 07/21/24 00:25 CT angio head w con Stat IMPRESSION: 1. Evaluation of the distal small caliber right vertebral artery is slightly limited by motion artifact. However, the right PICA is patent. The left vertebral artery is dominant and is widely patent. The basilar artery and posterior cerebral arteries are patent. 2. Negative CTA evaluation of the anterior circulation bilaterally. No occlusion or significant stenosis. CT angio neck with con Stat IMPRESSION: 1. Prominent atherosclerotic calcification of the proximal right internal carotid artery with severe, greater than 75% luminal stenosis, approximately 1.5 cm beyond the carotid bifurcation. Additional areas of mild to moderate narrowing are noted proximally secondary to probably noncalcified atheromatous changes. The mid to distal right internal carotid arteries patent. 2. Rounded filling defect in the distal right common carotid artery (series 7; image 201) measuring 2.3 mm. Regional concentric intimal hyperplasia noted. The appearance is most consistent with a pedunculated plaque burden; however, subtle thrombus is also a consideration. The right common carotid artery is otherwise patent. 3. The right vertebral artery is small in caliber throughout its course, measuring only 1 mm. This is a presumed congenital finding given the associated right transverse foramina. The left vertebral artery is widely patent. 4. Atherosclerotic calcification of the proximal left internal carotid artery with only mild narrowing by NASCET criteria. The mid to distal left internal carotid artery is patent. Mild intimal hyperplasia involving the left common carotid artery without significant narrowing. CT head/brain wo con Stat IMPRESSION: 1. No acute intracranial process identified. 2. Incidental chronic parenchymal involutional changes and periventricular presumed microvascular changes. Hospital Course (1) Chest pain: Pt is an 83 year old male with a PMH of type 2 diabetes, CVA, vertigo, hypothyroidism, and CKD presented with concern for chest pain. His admission EKG and trops no acute significant changes noted. No further events of chest discomfort during this admission. Tele no events through the admission. He was evaluated by cardiology and pt underwent stress test that was normal. The chest pain is likely noncardiac, possibly due to stress. consider continuing DAPT and Atorvastatin at 80mg daily. we have increased his Lisinopril to 10mg daily. Advised to attend for his previously planned TCAR on 07/22. (2) History of CVA (cerebrovascular accident): No new neurology, . Residual LUIS handgrip 3/[address], CTA. Rt carotid occlusion 75%, unchanged from prior neurology consulted and advised to continue DAPT, statin. Advised attend for scheduled TCAR on Mon (07/24) (3) HTN (hypertension): BP elevated on admission around 185/80s during admission. Lisinopril increased to 10mg on this admission. consider continuing his home dose Virapamil 180mg daily. (4) Bilateral carotid artery disease: - No new symptoms.negative head CT, CTA.Rt carotid occlusion 75%, unchanged from prior - TCAR scheduled for 07/24. (5) Hypothyroid: mildly elevated TSH at 6.012 (07/11/24) consider repeating in 4-6 weeks and review levothyroxine dose as pout pt (6) Hypercholesteremia: hx of recent CVA. Atorvastatin dose has been increased from 20 mg to 80mg on this admission. Consider continuing 80mg daily. (7) Diabetes: - last hemoglobin a1c= 8 (07/10 ) Continue with home medication. Plan Total Time Total Time Spent Total Time Spent (In Minutes): as per the attending's entry Discharge Plan Discharge Items Patient Disposition: Home - Self-Care Reason For Visit: CHEST PAIN Discharge Diagnosis: chest pain Activity: Per Instructions section Non-emergency contact: Primary Care Provider Call non-emergency contact if: you have any medication questions, your symptoms worsen and your pain is worsening Follow-up/Referrals: Delbert Guzmán MD [Primary Care Provider] - 07/25/24 8:20 am Diet: Regular Addtl Attending Provider Instructions: You were admitted to the hospital for evaluation of chest pain. Your blood tests and EKG (which measure the electrical activity of your heart) were both reassuring that your chest pain was not caused by a heart attack. A stress test was performed which was read as normal- a sign that your heart functions as expected under stress. You should proceed with your previously scheduled procedure on Monday for your carotid artery with Dr. Hernandez. A discharge summary will be sent to your primary care physician to ensure continuity of care. Please bring this discharge summary with you to your next office appointment so that your provider can review it at that time. Medications: Your medication list has been reviewed and reconciled upon discharge to ensure accuracy and continuity of care. An updated list of all your medications is included with your hospital discharge paperwork. Please review this list closely and make note of any changes to your medications. - Due to your elevated blood pressures, your lisinopril was increased to 10mg daily. - No other changes were made to your medications. Follow up appointments: - Make a follow up appointment with your PCP within the next week. It is very important that you follow up with them shortly after discharge from the hospital. - Keep all of your follow up appointments as already scheduled. If you cannot make an appointment, notify your provider. CONTACT YOUR PRIMARY CARE PROVIDER if you experience any of the following: - Difficulty following your treatment plan - Difficulty taking any of your medications CALL 911 OR GO TO THE EMERGENCY DEPARTMENT if you experience any of the following: - Sudden, severe abdominal pain or nausea/vomiting - Severe chest pain or chest pain that radiates to your jaw or arm - Sudden, severe shortness of breath or difficulty breathing Pending Studies at Discharge: No Stand-Alone Forms: My [facility] ZEB, Smoking Cessation, Medications to Prevent Stroke Medications and DC Order Prescriptions: New lisinopril 10 mg Tablet 10 mg PO QAM Qty: 30 0RF Continued verapamil 180 mg tablet extended release 180 mg PO QAM levothyroxine 25 mcg tablet 25 mcg PO DAILYBB metformin 500 mg tablet 1,000 mg PO BID oxybutynin chloride 10 mg tablet extended release 24hr 10 mg PO QAM aspirin 81 mg Tablet,Delayed Release (Dr/Ec) 81 mg PO QAM atorvastatin 40 mg Tablet 80 mg PO HS Qty: 30 0RF clopidogrel [Plavix] 75 mg tablet 75 mg PO QAM Discontinued lisinopril 5 mg tablet 5 mg PO QAM Rx Instructions: start on 07/15/24 Discharge Orders: Discharge Order (Routine); Ordered 07/22/24 Ordered By: Macey Vallecillo/Other Patient Handouts: Discharge Instructions for Stroke, Risk Factors for Stroke, Arm Care After a Stroke Admission Data Admit Date/Time: 07/21/24 02:37 Attending Provider: Heydi Jorge Admit Provider: Anjelica Garza Primary Care Provider: Delbert Guzmán Other Providers: Desmond Juarez; Jonh Sofia; Lucius Garrett; Terence Saini Other Interventions: Discharge Summary Assessment (RN) Last Done: 07/22/24 14:46 Supervising Physician Co-Signing Physician Notes Attending Physician Supervision Note: I independently interviewed and examined the patient and verified the walker history and physical, reviewed labs and image studies and agree with findings and care plan noted above. Atypical chest pain with h/o atherosclerotic ds (carotid artery stenosis) - Normal troponin levels. Had further chest pain this am -Underwent stress test today - Negative. Recent History of CVA/carotid artery disease- Scheduled for endarterectomy on monday - CYNTHIA stenosis of 75%. continue DAPT and statin and follow pre-op instructions. Discharged home.
[2024-07-22 14:46] VITALS: PULSE 68
--- NOTE | 2024-07-22 15:05 | XCELERA ---
[id number]
--- NOTE | 2024-07-23 05:56 | Electrocardiogram Report ---
Test Reason : Blood Pressure : */* mmHG Vent. Rate : 61 BPM Atrial Rate : 61 BPM P-R Int : 188 ms QRS Dur : 106 ms QT Int : 424 ms P-R-T Axes : 26 -32 87 degrees QTcB Int : 426 ms Normal sinus rhythm Left axis deviation Incomplete right bundle branch block Moderate voltage criteria for LVH, may be normal variant ( R in aVL , Yehuda product ) T wave abnormality, consider lateral ischemia Abnormal ECG When compared with ECG of 09-Jul-2024 14:36, No significant change was found Confirmed by Desmond Juarez ([id number]) on 07/23/2024 5:55:52 AM Referred By: REFERRED SELF Confirmed By: Desmond Juarez
[2024-07-23] MEDS ORDERED: lisinopril 10 MG TAB PO SCH (09:00)
== END 2024-07-22 15:16 | disposition home or self-care (01) ==
LOC: EDINP 00:16 → ED 00:16 → SUATTDRO 02:37 → 2N 04:10

== ENCOUNTER 2024-07-24 10:42 | Inpatient (IN) ==
--- NOTE | 2024-07-16 13:04 | Anesthesiology Consultation ---
Date of Service July 16, 2024 Assessment & Plan (1) Encounter for pre-operative examination: Chart Review Chart Review: Acceptable Risk for Surgery and Patient NOT seen in Pre Admission Testing Infectious Disease screening: Per PAT nursing assessment on 07/16/24, No known infectious disease contacts in past 10 days or current infectious disease symptoms. No recent travel outside the country. History Surgery Operation Date: 07/24/24 13:00 Proposed Procedures p Right Transcarotid Artery Revascularization - Jian Hernandez MD Height/Weight Height: 5 ft 6 in Weight: 72.575 kg Allergies Allergy/AdvReac Type Severity Reaction Status Date / Time shellfish derived Allergy Intermediate Diarrhea Verified 07/16/24 10:16 Medications Home Medications Medication Instructions Recorded Confirmed Last Taken levothyroxine 25 mcg tablet 25 mcg PO DAILYBB 08/19/19 07/16/24 01/24/24 verapamil 180 mg tablet,extended 180 mg PO QAM 08/19/19 07/16/24 01/24/24 release metformin 500 mg tablet 1,000 mg PO BID 04/15/21 07/16/24 01/24/24 08:00 oxybutynin chloride 10 mg 10 mg PO QAM 01/19/24 07/16/24 01/24/24 tablet,extended release 24 hr aspirin 81 mg tablet,delayed 81 mg PO QAM 01/24/24 07/16/24 01/24/24 release atorvastatin 40 mg tablet 80 mg (2 x 40 mg) PO HS #30 tabs 07/11/24 07/16/24 Unknown clopidogrel 75 mg tablet (Plavix) 75 mg PO QAM 07/16/24 07/16/24 Unknown lisinopril 5 mg tablet 5 mg PO QAM 07/16/24 07/16/24 Unknown Past Medical History Medical History (Updated 07/16/24 @ 14:14 by Paula Wood PA-C) LVH (left ventricular hypertrophy) severe cLVH per 07/10/24 ECHO CKD (chronic kidney disease) History of depression r/t first stroke - no issues currently Hypothyroidism HTN (hypertension) Gout 01/24/24-01/25/24 [facility]; Rx colchicine Diabetes mellitus, type 2 Hx: UTI (urinary tract infection) 01/2024 [facility] admission sepsis 2/2 UTI; resolved Hx of sepsis 2/2 to UTI 01/2024 admission Carotid stenosis 07/09/24 imagin% stenosis of the proximal right ICA and 60% stenosis on the left History of bladder cancer 2010; s/p BCG tx Urinary frequency CVA (cerebral vascular accident) 06/2013 in [place] (CVA vs TIA per chart review) 07/09/24 [facility]: presented with LUE weakness; 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, associated 90% proximal R ICA stenosis, 60% stenosis L; plan for R TCAR; per pt, no residual sx Past Family History Family History Mother , age 84 of uncertain cause Hypertension Father , age 64 with tuberculosis Tuberculosis Past Surgical History Surgical History (Updated 07/16/24 @ 13:04 by Paula Wood PA-C) Hx of Achilles tendon repair Right Hx of colonoscopy Hx of appendectomy Social History Smoking Status: Never smoker Do You Dip or Chew Tobacco: No Hx Alcohol Use: No Alcohol type: wine alcohol intake frequency: a few times a week Hx Substance Use: No substance use type: does not use Lab Results Anesthesia Preop Results Results Anesthesia Widget: WBC 7.06 K/ul (4.8-10.8) 07/10/24 Hgb 13.8 g/dl (14.0-18.0) L 07/10/24 Hct 40.6 % (42.0-52.0) L 07/10/24 Plt 174 K/uL (130-400) 07/10/24 Na 139 mmol/L (136-145) 07/10/24 K 3.7 mmol/L (3.5-5.1) 07/10/24 Cl 106 mmol/L (98-107) 07/10/24 CO2 26 mmol/L (21-32) 07/10/24 BUN 15 mg/dl (6-23) 07/10/24 Creat 1.04 mg/dl (0.6-1.4) 07/10/24 Glucose Level 135 mg/dl (70-99(Fasting)) H 07/10/24 POC Glucose 121 mg/dl (70-99) H 07/11/24 PT 10.9 Seconds (9.0-12.0) 07/09/24 PTT 27 Seconds (21-31) 07/09/24 INR 1.0 (0.9-1.1) 07/09/24 TSH 6.012 uIu/ml (0.300-4.500) H 07/11/24 Free T4 0.93 ng/dl (0.61-1.60) 07/11/24 HA1c 8.0 % (4.5-5.6) H 07/10/24 Testing Electrocardiogram Date: 07/09/24 NSR with PACs, rate: 68bpm iRBBB. Compared to 01/19/24, Rate decr by 40bpm. T wave inversion no longer evident in inferior leads. T wave inversion more evident in lateral leads. Chest X-Ray Date: 07/09/24 Findings: + NAD CM is noted. Echocardiogram Date: 07/10/24 EF: 60-65% No cardiac source of emboli noted. LVSF normal. Severe cLVH. normal LVWM No significant valvular disease. Other Testing 07/09/24 Brain MRI: Numerous punctate foci of restricted diffusion compatible with embolic stroke in the right MCA distribution. No large contiguous focus of infarct is seen. 07/09/24 Head CTA: No occlusion, hemodynamically significant stenosis, aneurysm, dissection, or arteriovenous malformation in the major intracranial arteries. 07/09/24 Neck CTA: 1. Progressive atherosclerotic plaque of the carotid bulbs now results in approximately 90% stenosis of the proximal right ICA and 60% stenosis on the left. 2. Unchanged appearance of the vertebral arteries. (compared to 04/15/21) 07/09/[address]: No acute intracranial findings. No change in appearance of the brain.
[2024-07-24] MEDS: LR 15ML/HR IV SCH (11:30)
[2024-07-24] MEDS: SODIUM CHLORIDE 0.9% 1,000 ML IV SCH (11:31)
[2024-07-24 11:34] LABS: BUN Creatinine Ratio 30.2 (10-20); Calcium 9.7 mg/dl (8.6-10.3); Creatinine Clr Calc Pharmacy 53.5 ml/min; Est GFR (Non-African American) 73.3 ml/min; Potassium 4.1 mmol/L (3.5-5.1)
[2024-07-24] MEDS ORDERED: fentaNYL citrate PF 100 MCG/2 ML VIAL ONE ×2 (12:02→13:34)
[2024-07-24] MEDS ORDERED: PHENYLEPHRINE HCL 10 MG/ML VIAL ONE (12:02)
[2024-07-24] MEDS ORDERED: DEXAMETHASONE SOD INJ 4 MG/ML VIAL ONE (12:02)
[2024-07-24] MEDS ORDERED: ROCURONIUM BROMIDE 10 MG/ML 5 ML VIAL IV ONE (12:02)
[2024-07-24] MEDS ORDERED: PROPOFOL IV EMULSION 10 MG/ML 20 ML VIAL IV ONE (12:02)
[2024-07-24] MEDS ORDERED: ONDANSETRON INJ 2 MG/ML 2 ML VIAL ONE (12:02)
[2024-07-24] MEDS ORDERED: LIDOCAINE 2% 2 ML VIAL/AMP(20MG/ML) INFIL ONE (12:02)
[2024-07-24] MEDS ORDERED: MIDAZOLAM HCL 1 MG/ML 2ML VIAL ONE (12:03)
[2024-07-24] MEDS ORDERED: GLYCOPYRROLATE 0.2 MG/ML VIAL ONE (12:04)
[2024-07-24] MEDS ORDERED: HEPARIN SOD (PORCINE) 1000 UNIT/ML ONE (12:04)
--- NOTE | 2024-07-24 12:34 | History & Physical Report ---
Date of Service July 24, 2024 History of Present Illness Primary Care Provider: Delbert Guzmán MD Date of Consultation July 10, 2024 Assessment & Plan (1) Bilateral carotid artery disease: Pt with BL ICA stenosis, 90% on R, 60% on L. Presents with R hemispheric CVA confirmed by MRI, sx partially resolved, L arm weakness remains. Pt also seen by Dr Hernandez, who recommend surgical intervention for symptomatic carotid disease. Carotid Endarterectomy vs TCAR procedures, risks, benefits, both discussed at length with pt by myself and Dr Hernandez. Pt's was also present. Pt elects to proceed with R TCAR. Pt already started on DAPT and has been on statin medication. THis will need to be continued for procedure and for minimum of 1 year postop. Will schedule procedure in next 2 weeks. Office will call pt to schedule. Please call if needed. History of Present Illness Reason for Consultation: R ICA stenosis Attending Physician: Amita Barry MD History of Present Illness 83 yo m with hx of HTN, gout, DMII, bladder ca, CKD, hypothyroidism, hypercholesterolemia, admitted with L arm weakness and found to have R hemispheric CVA, seen in consultation today for R ICA stenosis. Pt states he was at home and noted numbness/weakness of L arm, then went to bathroom and fell and had difficulty getting up. Had his bring him to ED for eval. No previous similar sx. Denies amaurosis, facial droop, confusion, difficulty speaking, LIRIANO, dizziness. Denies fever, recent illness, chest pain, palpitations, SOB, abd pain, N/V, rest pain, claudication, other complaints. States his L arm sx are partially resolved, but still weak. Upon arrival to ED, telestroke was called and TNKase was advised, but pt refused d/t risks involved. Pt previously with TIA vs CVA while out of town in 2012, details unclear. Carotid US done at [facility] [place] office at that time demonstrated less than 50% stenosis BL. CTA neck demonstrates severe R ICA stenosis. MRI brain demonstrates R hemispheric CVA. Allergies Allergy/AdvReac Type Severity Reaction Status Date / Time No Known Allergies Allergy Mild NONE Verified 07/09/24 15:12 Home Medications Medication Instructions Recorded Confirmed Type levothyroxine 25 mcg tablet 25 mcg PO DAILYBB 08/19/19 07/09/24 History verapamil 180 mg tablet,extended 180 mg PO QAM 08/19/19 07/09/24 History release atorvastatin 20 mg tablet 20 mg PO HS 04/15/21 07/09/24 History metformin 500 mg tablet 1,000 mg PO BID 04/15/21 07/09/24 History oxybutynin chloride 10 mg 10 mg PO QAM 01/19/24 07/09/24 History tablet,extended release 24 hr aspirin 81 mg tablet,delayed 81 mg PO DAILY 01/24/24 07/09/24 History release Patient History Medical History Total bilirubin, elevated Urinary frequency CVA (cerebral vascular accident) 2012 Family History Mother , age 84 of uncertain cause HypertensionFather , age 64 with tuberculosis Tuberculosis Social History Smoking Status: Never smoker Tobacco Type: Cigarettes Hx Alcohol Use: Yes Alcohol type: wine Alcohol Intake Frequency Comment: 1 glass with dinner 4 times per week Hx Substance Use: No Preferred Language: Palauan Communication Ability: Effective Research And Evaluation Manager Required: No Beliefs That Will Affect Care: None Current Living Situation: Spouse Current Living Situation Comment: Lives with at the [facility]. 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 Feels Safe at Home: Yes Safety Concerns: Feels Safe At This Time Assistive Devices: None Review of Systems Review of Systems: All systems reviewed & are unremarkable except as noted in HPI & below Physical Exam Constitutional: WD/WN, vitals as above healthy appearing, cooperative and comfortable; not in distress ENMT: Ears: no hearing impairment Neck: trachea midline Respiratory: normal respiratory effort, lungs clear to auscultation Auscultation: + diminished lung sounds Cardiovascular: Rate/Rhythm: regular rate and regular rhythm Vessels: posterior tibial pulses present, dorsalis pedis pulses present and radial pulses present; + abnormal peripheral pulses Extremities: normal capillary refill; no edema Gastrointestinal (Abdomen): Inspection/Auscultation: abdomen normal to inspection and normal bowel sounds Percussion/Palpation: abdomen soft; abdomen nontender Musculoskeletal: Extremities: extremities normal to inspection and + abnormal strength (LUE 2/5, RUE 5/5, BLE 5/5) Skin: no rashes, warm and dry Neurologic: moves all extremities, + focal motor deficit (L arm weakness, not flaccid) and awake; not confused Speech / Cognition: normal speech, no expressive aphasia and no receptive aphasia Psychiatric: A+Ox3, euthymic affect Results & Data Vital Signs (Past 12 Hours) Vital Signs Temp Pulse Pulse Resp BP Pulse Ox O2 Del Method 07/10/24 11:01 36.7 C 70 17 162/84 H 95 Room Air 07/10/24 10:33 79 07/10/24 07:37 36.6 C 74 17 191/89 H 96 Room Air Signed By: <Electronically signed by Lori García PA-C> 07/10/24 1434 <Electronically signed by Jian Hernandez MD> 07/10/24 1503 Created: 07/10/24 1416 The status of this report is Signed. Draft = Not yet reviewed or approved by Medical Physician. Signed = Reviewed and approved by Medical Physician. Allergies Allergy/AdvReac Type Severity Reaction Status Date / Time shellfish derived Allergy Intermediate Diarrhea Verified 07/24/24 11:01 Home Medications Medication Instructions Recorded Confirmed Type levothyroxine 25 mcg tablet 25 mcg PO DAILYBB 08/19/19 07/24/24 History verapamil 180 mg tablet,extended 180 mg PO QAM 08/19/19 07/24/24 History release metformin 500 mg tablet 1,000 mg PO BID 04/15/21 07/24/24 History oxybutynin chloride 10 mg 10 mg PO QAM 01/19/24 07/24/24 History tablet,extended release 24 hr aspirin 81 mg tablet,delayed 81 mg PO QAM 01/24/24 07/24/24 History release clopidogrel 75 mg tablet (Plavix) 75 mg PO QAM 07/16/24 07/24/24 History atorvastatin 80 mg tablet 80 mg PO HS #30 tabs 07/22/24 07/24/24 Rx lisinopril 10 mg tablet 10 mg PO QAM #30 tabs 07/22/24 07/24/24 Rx Past Med/Surg History Problem List Chest pressure Chest pain (Acute) Encounter for pre-operative examination Bilateral carotid artery disease HTN (hypertension) (Acute) Gout Hyperglycemia due to type 2 diabetes mellitus Acute foot pain (Acute) TIA (transient ischemic attack) CVA vs TIA 2012 History of CVA (cerebrovascular accident) (Acute) 07/09/24 Numbness and tingling of right arm (Acute) Dizziness (Acute) Vertigo Hypothyroid Hypercholesteremia Diabetes Kidney disease Upper extremity neuropathy (Acute 10/06/13) Occipital neuralgia (Acute) Left ear injury (Acute) Headache (Acute) Stomach problems (Chronic) Urinary problem (Chronic) Medical History LVH (left ventricular hypertrophy) severe cLVH per 07/10/24 ECHO CKD (chronic kidney disease) History of depression r/t first stroke - no issues currently Hypothyroidism HTN (hypertension) Gout 01/24/24-01/25/24 [facility]; Rx colchicine Diabetes mellitus, type 2 Hx: UTI (urinary tract infection) 01/2024 [facility] admission sepsis 2/2 UTI; resolved Hx of sepsis /2 to UTI 01/2024 admission Carotid stenosis 07/09/24 imagin% stenosis of the proximal right ICA and 60% stenosis on the left History of bladder cancer 2010; s/p BCG tx Urinary frequency CVA (cerebral vascular accident) 06/2013 in [place] (CVA vs TIA per chart review) 07/09/24 [facility]: presented with LUE weakness; 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, associated 90% proximal R ICA stenosis, 60% stenosis L; plan for R TCAR; per pt, no residual sx Surgical History History of bladder surgery Hx of Achilles tendon repair Right Hx of colonoscopy Hx of appendectomy Family History Mother Hypertension Father Tuberculosis Social History Smoking Status: Never smoker Tobacco Type: Cigarettes Second Hand Exposure: No; Do You Dip or Chew Tobacco: No; Tobacco Cessation Education Requested by Patient: No Hx Alcohol Use: Yes Alcohol type: wine Alcohol Intake Frequency Comment: 1 glass with dinner 4 times per week Hx Substance Use: No Preferred Language: Palauan Communication Ability: Effective Research And Evaluation Manager Required: No Beliefs That Will Affect Care: None Current Living Situation: Spouse Current Living Situation Comment: Lives with at the [facility]. 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
--- NOTE | 2024-07-24 12:34 | History & Physical Bridge Note ---
Date of Service July 24, 2024 History & Physical Bridge Note I have examined the patient, reviewed the History & Physical and in the interval since the performance of the History & Physical I have noted the following changes of clinical significance: no changes noted
[2024-07-24] MEDS ORDERED: ePHEDrine sulfate 50 MG/ML AMP IV PRN (12:47)
[2024-07-24] MEDS ORDERED: LABETALOL HCL IV 5 MG/ML 20ML IV PRN (12:47)
[2024-07-24] MEDS ORDERED: ONDANSETRON INJ 2 MG/ML 2 ML VIAL IV PRN (12:47)
[2024-07-24] MEDS ORDERED: FLUMAZENIL 0.1 MG/1 ML 10 ML VIAL IV PRN (12:47)
[2024-07-24] MEDS ORDERED: ATROPINE SULFATE 0.1 MG/ML 10ML SYR IV PRN (12:47)
[2024-07-24] MEDS ORDERED: PROMETHAZINE HCL 6.25 MG in SODIUM CHLORIDE 0.9% 50 ML IV PRN (12:47)
[2024-07-24] MEDS ORDERED: fentaNYL citrate PF 100 MCG/2 ML VIAL IV PRN (12:47)
[2024-07-24] MEDS ORDERED: NALOXONE HCL 0.4 MG/1 ML VIAL/CARP IV PRN (12:47)
[2024-07-24] MEDS ORDERED: PHENYLEPHRINE HCL 25 MG/250 ML NSS IV ONE (12:49)
[2024-07-24] MEDS: ceFAZolin 2000MG 2,000 MG/15 ML SYR IV SCH ×2 (13:07→20:35)
[2024-07-24] MEDS ORDERED: SUGAMMADEX SODIUM 200 MG/2 ML VIAL IV ONE (13:48)
[2024-07-24] MEDS ORDERED: ePHEDrine sulfate 50 MG/5 ML SYR ONE (14:17)
[2024-07-24] MEDS: BUPIVACAINE/EPINEPHRINE 0.5% MPF 1:200,000 30 ML VIAL ONE (14:22)
[2024-07-24] MEDS: THROMBIN FOR SOLN 20000 UNIT KIT ONE (14:22)
[2024-07-24] MEDS: VISIPAQUE IV ONE (14:22)
[2024-07-24] MEDS ORDERED: PROTAMINE SULFATE 10 MG/ML 5 ML VIAL IV ONE (14:22)
[2024-07-24] MEDS: GELATIN SPONGE SZ 100 ONE (14:22)
[2024-07-24] MEDS: ARISTA ABSORBABLE HEMOSTAT 3GM TOP ONE (14:30)
--- NOTE | 2024-07-24 14:32 | Post Operative Brief Note ---
Immediate Post Op Note Date of Surgery July 24, 2024 Pre & Post Diagnosis Operation Date: 07/24/24 13:00 Pre-Op Diagnosis: (1) Bilateral carotid artery disease: Post-Op Diagnosis: (1) Bilateral carotid artery disease: I identified the patient and participated in the time-out.: Yes Procedure Operation Date: 07/24/24 13:00 Actual Procedures p Right Transcarotid Artery Revascularization(Right), Ultrasound localization of left common femoral vein - Jian Hernandez MD Surgeon Jian Hernandez MD Manager Purchasing MD Manas Estimated Blood Loss 10 Findings Consistent with Post-Op Diagnosis Anesthesia Type General Complications none Disposition Accompanied Patient To Recovery: No Disposition: Recovery Room
[2024-07-24] MEDS ORDERED: LIDOCAINE 2% 20 MG/ML 5 ML SYR IV ONE (14:42)
[2024-07-24] MEDS: ceFAZolin 330 MG/ML 1 GM VIAL ONE (14:43)
--- NOTE | 2024-07-24 14:58 | Operative Report ---
Post Operative Report Pre & Post Diagnosis Operation Date: 07/24/24 13:00 Pre-Op Diagnosis: (1) Bilateral carotid artery disease: Post-Op Diagnosis: (1) Bilateral carotid artery disease: I identified the patient and participated in the time-out.: Yes Procedure Operation Date: 07/24/24 13:00 Actual Procedures p Right Transcarotid Artery Revascularization(Right), Ultrasound localization of left common femoral vein - Jian Hernandez MD Surgeon Jian Hernandez MD Operations Liaison MD Cora Estimated Blood Loss 10 Findings See Below Severe right carotid artery plaque with partially mobile thrombus on the proximal portion part of the plaque. On completion angiogram, the stent was patent with good wall apposition and no areas of hemodynamically significant narrowing. The previously visualized thrombus was tacked against the wall and there was good proximal and distal coverage past the area of disease with no residual mobile thrombus visualized. Neurologic exam was at baseline at the completion of the case Specimens None Drains None Anesthesia Type General Complications None Disposition Accompanied Patient To Recovery: Yes Indications 83 year old male with history of symptomatic, severe right carotid artery stenosis who was found to be a candidate for carotid revascularization. After discussion of risks versus benefits, he elected to undergo transcarotid artery revascularization (TCAR) and consented to the procedure. Description of Procedure The patient was brought to the operating room, where lines were placed and general anesthesia was accomplished by anesthesia team. A shoulder roll was placed and the neck was rotated towards the left side of the patient. The right neck and bilateral groins were prepped and patient was draped in the usual sterile fashion. A timeout was performed identifying the correct patient by name, procedure, and location of procedure and all were in agreement. A 3cm transverse incision was made between the sternal and clavicular heads of the sternocleidomastoid muscle. The muscle heads were retracted to each side and the carotid sheath was identified. Using blunt dissection, the carotid sheath was opened and 3cm of common carotid artery (CCA) were isolated. Umbilical tape was placed around the proximal CCA under direct visualization. A 5-0 prolene U- stitch was pre-placed in the anterior wall of the CCA to facilitate hemostasis after removal of the arterial sheath at completion of the procedure. The patient was given 8,000 units of IV heparin. The contralateral (left) common femoral vein was accessed under ultrasound guidance, using an access needle, and a wire and sheath were placed using marylin fied Seldinger technique. The venous return sheath was advanced into the common femoral vein over the 0.035" wire. Blood was aspirated from the flow line and the sheath was flushed with heparinized saline.The sheath was secured to the patient's skin with a 2-0 silk stitch to maintain position in the vessel. ACT was at goal of >250. We then turned our attention back to the neck. A 4-New Zealander non-stiffened micropuncture set was used, puncturing the common carotid artery with a 21G needle through the pre-placed U-stitch while holding gentle traction on the umbilical tape to stabilize the CCA within the incision. The micropuncture wire was advanced 3-4cm into the CCA and the 21G needle removed. The micropuncture sheath was advanced 3cm into the CCA and the wire and dilator were removed. A cerebral angiogram was obtained after ensuring there were no air bubbles in the system. There was significant calcification of the right carotid artery as well as a partially mobile piece of thrombus just proximal to the plaque. The J-tipped guidewire was inserted and we stopped short of the lesion and mobile thrombus at the level of the common carotid artery. After micropuncture sheath removal, the transcarotid arterial sheath was advanced to the 3cm marker and the 0.035" wire and dilator were removed. Arterial sheath position was assessed under fluoroscopy. The arterial sheath was sutured to the patient at two sites. The Flow Controller was connected to the transcarotid arterial sheath, prepared by passively allowing arterial blood to backfill the line and then it was connected to the venous return sheath. We obtained a repeat cerebral angiogram to visualize the area we intended to treat. The CCA was clamped proximally with a Usama tourniquet to ensure active flow reversal. Heparinized saline was delivered into the venous flow line to confirm adequate flow reversal. A TCAR timeout was performed, heart rate was >70bpm and systolic BP was >140mmHg. Patient had been pretreated with glycopyrrolate and atropine was available. The lesion was crossed with an 0.014" guidewire and pre-dilation balloon angioplasty was performed with a 6x35mm [employer] rapid exchange balloon to 14 atmospheres. A 10-8x40mm [id number] transcarotid stent was placed distally in the CCA and ICA, followed by an overlapping [id number] stent in the CCA to cover both the proximal plaque and the mobile thrombus. Post-dilation balloon angioplasty was performed with a 6x35mm [employer] rapid exchange balloon on the area where patient had most significant disease, as there was a slight tapering of the stent at this area and over the overlap zone. A completion angiogram was performed showing a patent stent with appropriate stent position and good wall apposition. The area of prior mobile thrombus was tacked to the wall with no visualized areas of mobile thrombus seen and no areas of hemodynamically significant stenosis visualized through the stents. At TCAR case completion, antegrade flow was restored by releasing the tourniquet on the CCA and closing the stopcocks to the flow lines. The total clamp time was 11 minutes. The transcarotid arterial sheath was removed and the pre-placed suture was tied. 25mg of protamine were given. A repeat ACT was obtained and was <150. The venous return sheath was removed and hemostasis achieved with manual compression. The neck incision was irrigated with antibiotic solution and was hemostatic before closure. PerClot hemostatic agent was applied to the soft tissue. 20cc of 0.5% marcaine with epinephrine were used for local anesthesia around skin edges. The platysma was approximated with 3-0 Vicryl running suture and the skin was closed with 4-0 running Vicryl suture and covered with Dermabond. The patient tolerated the procedure well and was extubated in the operating room. He was moving all four extremities to command prior to transfer to the recovery room. All counts were correct at the end of the procedure. Fluoroscopy time was 3.3 minutes, radiation dose was 29.7mGy and 15cc of contrast were used. Dr Hernandez was present and scrubbed for all critical portions of the case. I attest to the content of the Intraoperative Record and any orders documented therein. Any exceptions are noted below.
--- NOTE | 2024-07-24 15:40 | Critical Care Consultation ---
Date of Consultation July 24, 2024 Assessment & Plan (1) History of transcarotid artery revascularization (TCAR): (2) HTN (hypertension): (3) Diabetes: Plan Impression: 83-year-old male with hypertension and prior stroke now status post right TCAR for symptomatic carotid stenosis. He is doing well postoperatively. Recommendations: 1. Status post TCAR: Continue to observe in ICU. Management per vascular surgery. 2. Hypertension: Restart his antihypertensive regimen and follow-up. 3. Anticoagulation per vascular surgery. The patient was already on dual antiplatelet therapy with Plavix and aspirin prior to this procedure. 4. Hyperlipidemia: Continue lipid-lowering agent. 5. Diabetes: Continue glycemic protocol. Hold metformin for 24 hours given recent contrast load. Will cover with insulin if needed. 6. The patient's remaining issues and been well addressed by the vascular surgery service. Will continue to follow for 24 hours in the ICU. Ultimate disposition per vascular surgery. Thanks for the opportunity participating the care of this patient. Feel free to contact us with questions or concerns History of Present Illness Attending Physician: Jian Hernandez MD History of Present Illness Asked by vascular surgery to assist in evaluation management this patient status post TCAR. History is obtained from discussion with the patient as well as review of the electronic medical record. The patient is an 83-year-old male with a history of hypertension and diabetes who had a right hemispheric CVA and was found to have 90% carotid stenosis on the right with 60% on the left. Carotid endarterectomy versus TCAR was discussed with the patient and he elected to proceed with right sided TCAR. He presented to the OR today and underwent the above-mentioned procedure. He has done well clinically in PACU and is awake and alert. He has some residual left- sided weakness from his prior stroke. He is currently hemodynamically stable. He is not having any new neurological symptoms. He has minimal pain currently Allergies Allergy/AdvReac Type Severity Reaction Status Date / Time shellfish derived Allergy Intermediate Diarrhea Verified 07/24/24 11:01 Home Medications Medication Instructions Recorded Confirmed Type levothyroxine 25 mcg tablet 25 mcg PO DAILYBB 08/19/19 07/24/24 History verapamil 180 mg tablet,extended 180 mg PO QAM 08/19/19 07/24/24 History release metformin 500 mg tablet 1,000 mg PO BID 04/15/21 07/24/24 History oxybutynin chloride 10 mg 10 mg PO QAM 01/19/24 07/24/24 History tablet,extended release 24 hr aspirin 81 mg tablet,delayed 81 mg PO QAM 01/24/24 07/24/24 History release clopidogrel 75 mg tablet (Plavix) 75 mg PO QAM 07/16/24 07/24/24 History atorvastatin 80 mg tablet 80 mg PO HS #30 tabs 07/22/24 07/24/24 Rx lisinopril 10 mg tablet 10 mg PO QAM #30 tabs 07/22/24 07/24/24 Rx Patient History Medical History LVH (left ventricular hypertrophy) severe cLVH per 07/10/24 [facility] CKD (chronic kidney disease) History of depression r/t first stroke - no issues currently Hypothyroidism HTN (hypertension) Gout 01/24/24-01/25/24 [facility]; Rx colchicine Diabetes mellitus, type 2 Hx: UTI (urinary tract infection) 01/2024 [facility] admission sepsis 2/2 UTI; resolved Hx of sepsis 12/08 to UTI 01/2024 admission Carotid stenosis 07/09/24 imagin% stenosis of the proximal right ICA and 60% stenosis on the left History of bladder cancer 2010; s/p BCG tx Urinary frequency CVA (cerebral vascular accident) 06/2013 in [place] (CVA vs TIA per chart review) 07/09/24 [facility]: presented with LUE weakness; 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, associated 90% proximal R ICA stenosis, 60% stenosis L; plan for R TCAR; per pt, no residual sx Surgical History (Updated 07/24/24 @ 15:38 by Yobani Folwers MD) History of bladder surgery Hx of Achilles tendon repair Right Hx of colonoscopy Hx of appendectomy Family History Mother Hypertension Father Tuberculosis Social History Smoking Status: Never smoker Tobacco Type: Cigarettes Second Hand Exposure: No; Do You Dip or Chew Tobacco: No; Tobacco Cessation Education Requested by Patient: No Hx Alcohol Use: Yes Alcohol type: wine Alcohol Intake Frequency Comment: 1 glass with dinner 4 times per week Hx Substance Use: No Preferred Language: Albanian Communication Ability: Effective Project Accountant Required: No Beliefs That Will Affect Care: None Current Living Situation: Spouse Current Living Situation Comment: Lives with at [facility]. 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 No additions or deletions Physical Exam Constitutional: WD/WN, vitals as above Neck: trachea midline, no thyromegaly Respiratory: normal respiratory effort, lungs clear to auscultation Cardiovascular: RRR, no murmur, no edema Gastrointestinal (Abdomen): normal bowel sounds, soft, nontender, no hepatosplenomegaly Musculoskeletal: Extremities: extremities normal to inspection Skin: no rashes, warm and dry Neurologic: Slight residual weakness on the left Lymphatic: no cervical lymphadenopathy Results & Data Results & Data Vital Signs (Past 12 Hours) Vital Signs Temp Pulse Pulse Resp BP BP BP 07/24/24 15:30 76 18 149/59 H 138/69 07/24/24 15:20 80 12 141/56 H 130/68 07/24/24 15:10 36.1 C L 83 16 136/50 L 136/58 L 07/24/24 11:20 36.5 C 73 20 171/82 H Pulse Ox O2 Del Method O2 Flow Rate 07/24/24 15:30 98 Oxymask 2 07/24/24 15:20 100 Oxymask 4 07/24/24 15:10 99 Oxymask 6 07/24/24 11:20 96 Room Air Critical Care Results & Data Vital Signs (Past 12 Hours) Vital Signs Temp Pulse Pulse Resp BP BP BP 07/24/24 15:30 76 18 149/59 H 138/69 07/24/24 15:20 80 12 141/56 H 130/68 07/24/24 15:10 36.1 C L 83 16 136/50 L 136/58 L 07/24/24 11:20 36.5 C 73 20 171/82 H Pulse Ox O2 Del Method O2 Flow Rate 07/24/24 15:30 98 Oxymask 2 07/24/24 15:20 100 Oxymask 4 07/24/24 15:10 99 Oxymask 6 07/24/24 11:20 96 Room Air Lab & Micro Results (Past 24 Hours) No Data to Display Na 141 mmol/L (136-145) 07/24/24 K 4.1 mmol/L (3.5-5.1) 07/24/24 Cl 107 mmol/L (98-107) 07/24/24 CO2 27 mmol/L (21-32) 07/24/24 Anion Gap 7 (3-11) 07/24/24 BUN 29 mg/dl (6-23) H 07/24/24 Creatinine 0.96 mg/dl (0.6-1.4) 07/24/24 Estimated GFR ( Amer) 85.0 ml/min 07/24/24 Estimated GFR (Non-Af Amer) 73.3 ml/min 07/24/24 BUN/Creatinine Ratio 30.2 (10-20) H 07/24/24 Glu 145 mg/dl (70-99(Fasting)) H 07/24/24 Ca 9.7 mg/dl (8.6-10.3) 07/24/24 Calcium Level 9.7 mg/dl (8.6-10.3) 07/24/24 11:04 I & O Totals 24 Hours 07/23/24 07/24/24 07/25/24 06:59 06:59 06:59 Intake Total 1100 / 1100 Output Total 10 / 10 Balance 1090 / 1090 Cumulative 07/12/24 12:12 thru 07/24/24 15:10 Intake Total 1100 Output Total 10 Balance 1090 RT Ventilator Mngmt (Last Documented) Ventilator Ordered Settings Respiratory Rate 18 07/24/24 15:30 Ventilator - PT Measurements Respiratory Rate 18 Coding Level of Care Code 69966 IN/OBS CONSULT LVL 3,45M Diagnoses History of transcarotid artery revascularization (TCAR) Z98.62 HTN (hypertension) I10 Hypertension type: unspecified Diabetes E11.9 (2) HTN (hypertension) Hypertension type: unspecified Qualified Code(s): I10 - Essential (primary) hypertension
--- NOTE | 2024-07-24 16:23 | Anesthesiology Progress Note ---
Date of Service July 24, 2024 Anesthesia Post Procedure Vital Signs Vital Signs: Temp Pulse Pulse Resp BP BP BP 07/24/24 16:00 74 12 161/64 H 150/78 H 07/24/24 15:50 36.4 C L 81 12 159/63 H 158/99 H 07/24/24 15:40 77 16 155/62 H 139/73 07/24/24 15:30 76 18 149/59 H 138/69 07/24/24 15:20 80 12 141/56 H 130/68 07/24/24 15:10 36.1 C L 83 16 136/50 L 136/58 L 07/24/24 11:20 36.5 C 73 20 171/82 H Pulse Ox O2 Del Method O2 Flow Rate 07/24/24 16:00 98 Nasal Cannula 2 07/24/24 15:50 98 Nasal Cannula 2 07/24/24 15:40 99 Nasal Cannula 2 07/24/24 15:30 98 Oxymask 2 07/24/24 15:20 100 Oxymask 4 07/24/24 15:10 99 Oxymask 6 07/24/24 11:20 96 Room Air Transfer of Care Handoff Completed per policy Notes Mental Status: alert / awake / arousable Patient Amnestic to Procedure: Yes Nausea / Vomiting: adequately controlled Pain: adequately controlled Airway Patency, RR, SpO2: stable & adequate BP & HR: stable & adequate Hydration State: stable & adequate Anesthetic Complications: no major complications apparent
[2024-07-24] MEDS ORDERED: PHARMACY GLYCEMIC MGMT CONSULT PRN (16:36)
[2024-07-24] MEDS ORDERED: STAT IV Infusion **Titration per Protocol STA (16:36)
[2024-07-24] MEDS ORDERED: PHENYLEPHRINE/NSS 25 MG/250 ML BAG IV PRN (16:36)
[2024-07-24] MEDS ORDERED: CARBOHYDRATES FOR HYPOGLYCEMIA PO PRN (17:00)
[2024-07-24] MEDS ORDERED: DEXTROSE 50% 50 ML SYRINGE IV PRN (17:00)
[2024-07-24] MEDS ORDERED: GLUCOSE 10 TAB/TUBE PO PRN (17:00)
[2024-07-24] MEDS ORDERED: GLUCOSE 40% GEL 15 GM TUBE PO PRN (17:00)
[2024-07-24] MEDS: LACTATED RINGER'S 1,000 ML IV SCH (17:00)
[2024-07-24] MEDS ORDERED: GLUCAGON FOR INJ 1 MG VIAL IM PRN (17:00)
[2024-07-24] MEDS: lisinopril 10 MG TAB PO STA (18:30)
[2024-07-24] MEDS: INSULIN ASPART PER UNIT CHARGE SC SCH (20:35)
[2024-07-24] MEDS: ATORVASTATIN 40 MG TAB PO SCH (20:35)
[2024-07-24] MEDS: oxyCODONE/ACETAMINOPHEN 5mg/325mg TAB PO PRN (20:36)
[2024-07-24 23:44] VITALS: TEMP 97.9
[2024-07-25] MEDS: LEVOTHYROXINE SODIUM 25 MCG TABLET PO SCH (04:47)
[2024-07-25] MEDS: lisinopril 10 MG TAB PO SCH (07:37)
[2024-07-25] MEDS: CLOPIDOGREL BISULFATE 75 MG TAB PO SCH (07:37)
[2024-07-25] MEDS: OXYBUTYNIN CHLORIDE XL 5 MG TABCR PO SCH (07:37)
[2024-07-25] MEDS: ASPIRIN 81 MG ECTAB PO SCH (07:37)
[2024-07-25] MEDS: VERAPAMIL HCL 180 MG TABCR PO SCH (07:38)
--- NOTE | 2024-07-25 07:40 | Critical Care Progress Note ---
Date of Service July 25, 2024 Assessment & Plan (1) History of transcarotid artery revascularization (TCAR): (2) HTN (hypertension): (3) Diabetes: Plan Impression: 83-year-old male with hypertension and prior stroke status post right TCAR for symptomatic carotid stenosis. Postop day 1 he is doing well clinically Recommendations: 1. Status post TCAR: Management per vascular surgery. 2. Hypertension: Continue his antihypertensive regimen and follow-up. Blood pressure elevated this morning Pillard will ensure nursing is given his a.m. meds. 3. Anticoagulation per vascular surgery. The patient was already on dual antiplatelet therapy with Plavix and aspirin prior to this procedure. 4. Hyperlipidemia: Continue lipid-lowering agent. 5. Diabetes: Continue glycemic protocol. Can restart metformin this morning 6. The patient's remaining issues and been well addressed by the vascular surgery service. Disposition per vascular surgery Patient's critical care issues are resolved. Critical care will sign off. Feel free to contact us with questions or concerns Admission and Anticipated Discharge Date Admission Date: July 24, 2024 Subjective Patient seen and examined. EMR reviewed. Discussed with critical care ABBEY overnight and with bedside critical care nurse. The patient is doing well clinically at this point in time. He has had no new neurological symptoms. He slept well. His pain is adequately controlled. He is tolerating a diet this morning. Review of Systems Review of Systems: All systems reviewed & are unremarkable except as noted in Subjective Physical Exam Constitutional: WD/WN, vitals as above Neck: trachea midline, no thyromegaly Respiratory: normal respiratory effort, lungs clear to auscultation Cardiovascular: RRR, no murmur, no edema Gastrointestinal (Abdomen): normal bowel sounds, soft, nontender, no hepat osplenomegaly Musculoskeletal: Extremities: extremities normal to inspection Skin: no rashes, warm and dry Lymphatic: no cervical lymphadenopathy Results & Data Results & Data Vital Signs (Past 12 Hours) Vital Signs Temp Pulse Resp BP Pulse Ox O2 Del Method 07/25/24 06:05 164/82 H 07/25/24 06:05 164/82 H 07/25/24 06:05 164/82 H 07/25/24 06:00 75 21 164/82 H 94 07/25/24 05:30 75 24 95 07/25/24 05:00 72 18 157/82 H 96 07/25/24 04:00 75 17 155/19 H 91 07/25/24 03:00 78 20 07/25/24 03:00 155/76 H 07/25/24 03:00 155/76 H 07/25/24 02:03 78 21 155/76 H 95 07/25/24 01:06 89 29 H 91 07/25/24 01:00 156/80 H 07/25/24 01:00 156/80 H 07/25/24 01:00 156/80 H 07/25/24 01:00 75 19 156/80 H 93 07/25/24 00:00 77 19 175/85 H 92 07/25/24 00:00 82 07/24/24 23:45 81 07/24/24 23:06 82 25 H 95 07/24/24 23:00 167/99 H 07/24/24 23:00 167/99 H 07/24/24 22:54 80 20 96 07/24/24 22:00 80 18 171/87 H 07/24/24 21:14 82 16 174/78 H 93 07/24/24 20:19 83 20 156/93 H 95 07/24/24 20:19 156/93 H 07/24/24 20:19 156/93 H 07/24/24 20:00 36.6 C 83 19 136/80 94 Room Air Critical Care Results & Data Vital Signs (Past 12 Hours) Vital Signs Temp Pulse Resp BP Pulse Ox O2 Del Method 07/25/24 06:05 164/82 H 07/25/24 06:05 164/82 H 07/25/24 06:05 164/82 H 07/25/24 06:00 75 21 164/82 H 94 07/25/24 05:30 75 24 95 07/25/24 05:00 72 18 157/82 H 96 07/25/24 04:00 75 17 155/19 H 91 07/25/24 03:00 78 20 07/25/24 03:00 155/76 H 07/25/24 03:00 155/76 H 07/25/24 02:03 78 21 155/76 H 95 07/25/24 01:06 89 29 H 91 07/25/24 01:00 156/80 H 07/25/24 01:00 156/80 H 07/25/24 01:00 156/80 H 09/19/24 01:00 75 19 156/80 H 93 07/25/24 00:00 77 19 175/85 H 92 07/25/24 00:00 82 07/24/24 23:45 81 07/24/24 23:06 82 25 H 95 07/24/24 23:00 167/99 H 07/24/24 23:00 167/99 H 07/24/24 22:54 80 20 96 07/24/24 22:00 80 18 171/87 H 07/24/24 21:14 82 16 174/78 H 93 07/24/24 20:19 83 20 156/93 H 95 07/24/24 20:19 156/93 H 07/24/24 20:19 156/93 H 07/24/24 20:00 36.6 C 83 19 136/80 94 Room Air Lab & Micro Results (Past 24 Hours) No Data to Display Na 141 mmol/L (136-145) 07/24/24 K 4.1 mmol/L (3.5-5.1) 07/24/24 Cl 107 mmol/L (98-107) 07/24/24 CO2 27 mmol/L (21-32) 07/24/24 Anion Gap 7 (3-11) 07/24/24 BUN 29 mg/dl (6-23) H 07/24/24 Creatinine 0.96 mg/dl (0.6-1.4) 07/24/24 Estimated GFR ( Amer) 85.0 ml/min 07/24/24 Estimated GFR (Non-Af Amer) 73.3 ml/min 07/24/24 BUN/Creatinine Ratio 30.2 (10-20) H 07/24/24 Glu 145 mg/dl (70-99(Fasting)) H 07/24/24 Ca 9.7 mg/dl (8.6-10.3) 07/24/24 Calcium Level 9.7 mg/dl (8.6-10.3) 07/24/24 11:04 I & O Totals 24 Hours 07/24/24 07/25/24 07/26/24 06:59 06:59 06:59 Intake Total 2510 / 2510 Output Total 1760 / 1760 Balance 750 / 750 Cumulative 07/12/24 12:12 thru 07/25/24 06:00 Intake Total 2510 Output Total 1760 Balance 750 RT Ventilator Mngmt (Last Documented) Ventilator Ordered Settings Respiratory Rate 21 07/25/24 06:00 Ventilator - PT Measurements Respiratory Rate 21 Coding Level of Care Code 86986 SUB INP/OBS CARE 2/35MIN Diagnoses History of transcarotid artery revascularization (TCAR) Z98.62 HTN (hypertension) I10 Hypertension type: unspecified Diabetes E11.9 (2) HTN (hypertension) Hypertension type: unspecified Qualified Code(s): I10 - Essential (primary) hypertension
[2024-07-25] MEDS: LANTUS PER UNIT CHARGE SC SCH (09:35)
[2024-07-25 11:59] VITALS: RESP 22; O2SAT 93
[2024-07-25 13:21] VITALS: BP 144/104; PULSE 74
--- NOTE | 2024-07-25 15:11 | Surgery Progress Note ---
Date of Service July 25, 2024 Assessment & Plan (1) History of transcarotid artery revascularization (TCAR): Plan: POD#1 from a right tcar. No new focal deficits. Did well post op Discharge today Admission and Anticipated Discharge Date Admission Date: July 24, 2024 Subjective Patient without any complaints. No new focal deficits. Physical Exam Constitutional: WD/WN, vitals as above Neck: trachea midline Respiratory: normal respiratory effort; no respiratory distress Cardiovascular: Rate/Rhythm: regular rate and regular rhythm Skin: + incision (mild ecchymosis) Neurologic: CN's II-XI intact bilaterally, moves all extremities and + focal motor deficit (left arm, no change from pre op) Psychiatric: A+Ox3, euthymic affect Results & Data Vital Signs (Past 12 Hours) Vital Signs Temp Pulse Pulse Resp BP BP BP 07/25/24 13:22 36.6 C 74 22 144/104 H 175/68 H 07/25/24 13:20 36.6 C 74 22 144/104 H 175/68 H 07/25/24 11:00 65 22 135/67 07/25/24 09:00 81 25 H 174/89 H 07/25/24 08:00 66 07/25/24 07:06 73 20 158/112 H 07/25/24 06:05 164/82 H 07/25/24 06:05 164/82 H 07/25/24 06:05 164/82 H 07/25/24 06:00 75 21 164/82 H 07/25/24 05:30 75 24 07/25/24 05:00 72 18 157/82 H 07/25/24 04:00 75 17 155/19 H Pulse Ox 07/25/24 13:22 93 07/25/24 13:20 93 07/25/24 11:00 93 07/25/24 09:00 93 07/25/24 08:00 07/25/24 07:06 96 07/25/24 06:05 07/25/24 06:05 07/25/24 06:05 07/25/24 06:00 94 07/25/24 05:30 95 07/25/24 05:00 96 07/25/24 04:00 91
--- NOTE | 2024-07-26 10:02 | Discharge Summary ---
Date of Service July 26, 2024 Admission HPI Per Admitting Provider Date of Consultation July 10, 2024 Assessment & Plan (1) Bilateral carotid artery disease: Pt with BL ICA stenosis, 90% on R, 60% on L. Presents with R hemispheric CVA c onfirmed by MRI, sx partially resolved, L arm weakness remains. Pt also seen by Dr Hernandez, who recommend surgical intervention for symptomatic carotid disease. Carotid Endarterectomy vs TCAR procedures, risks, benefits, both discussed at length with pt by myself and Dr Hernandez. Pt's was also present. Pt elects to proceed with R TCAR. Pt already started on DAPT and has been on statin medication. THis will need to be continued for procedure and for minimum of 1 year postop. Will schedule procedure in next 2 weeks. Office will call pt to schedule. Please call if needed. History of Present Illness Reason for Consultation: R ICA stenosis Attending Physician: Amita Barry MD History of Present Illness 83 yo m with hx of HTN, gout, DMII, bladder ca, CKD, hypothyroidism, hypercholesterolemia, admitted with L arm weakness and found to have R hemispheric CVA, seen in consultation today for R ICA stenosis. Pt states he was at home and noted numbness/weakness of L arm, then went to bathroom and fell and had difficulty getting up. Had his bring him to ED for eval. No previous similar sx. Denies amaurosis, facial droop, confusion, difficulty speaking, LIRIANO, dizziness. Denies fever, recent illness, chest pain, palpitations, SOB, abd pain, N/V, rest pain, claudication, other complaints. States his L arm sx are partially resolved, but still weak. Upon arrival to ED, telestroke was called and TNKase was advised, but pt refused d/t risks involved. Pt previously with TIA vs CVA while out of town in 2012, details unclear. Carotid US done at [facility] [place] at that time demonstrated less than 50% stenosis BL. CTA neck demonstrates severe R ICA stenosis. MRI brain demonstrates R hemispheric CVA. Allergies Allergy/AdvReac Type Severity Reaction Status Date / Time No Known Allergies Allergy Mild NONE Verified 07/09/24 15:12 Home Medications Medication Instructions Recorded Confirmed Type levothyroxine 25 mcg tablet 25 mcg PO DAILYBB 08/19/19 07/09/24 History verapamil 180 mg tablet,extended 180 mg PO QAM 08/19/19 07/09/24 History release atorvastatin 20 mg tablet 20 mg PO HS 04/15/21 07/09/24 History metformin 500 mg tablet 1,000 mg PO BID 04/15/21 07/09/24 History oxybutynin chloride 10 mg 10 mg PO QAM 01/19/24 07/09/24 History tablet,extended release 24 hr aspirin 81 mg tablet,delayed 81 mg PO DAILY 01/24/24 07/09/24 History release Patient History Medical History Total bilirubin, elevated Urinary frequency CVA (cerebral vascular accident) 2012 Family History Mother , age 84 of uncertain cause HypertensionFather , age 64 with tuberculosis Tuberculosis Social History Smoking Status: Never smoker Tobacco Type: Cigarettes Hx Alcohol Use: Yes Alcohol type: wine Alcohol Intake Frequency Comment: 1 glass with dinner 4 times per week Hx Substance Use: No Preferred Language: Moroccan Communication Ability: Effective Family Development Specialist Required: No Beliefs That Will Affect Care: None Current Living Situation: Spouse Current Living Situation Comment: Lives with at [facility]. 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 Feels Safe at Home: Yes Safety Concerns: Feels Safe At This Time Assistive Devices: None Review of Systems Review of Systems: All systems reviewed & are unremarkable except as noted in HPI & below Physical Exam Constitutional: WD/WN, vitals as above healthy appearing, cooperative and comfortable; not in distress ENMT: Ears: no hearing impairment Neck: trachea midline Respiratory: normal respiratory effort, lungs clear to auscultation Ausculta tion: + diminished lung sounds Cardiovascular: Rate/Rhythm: regular rate and regular rhythm Vessels: posterior tibial pulses present, dorsalis pedis pulses present and radial pulses present; + abnormal peripheral pulses Extremities: normal capillary refill; no edema Gastrointestinal (Abdomen): Inspection/Auscultation: abdomen normal to insp ection and normal bowel sounds Percussion/Palpation: abdomen soft; abdomen nontender Musculoskeletal: Extremities: extremities normal to inspection and + abnormal strength (LUE 2/5, RUE 5/5, BLE 5/5) Skin: no rashes, warm and dry Neurologic: moves all extremities, + focal motor deficit (L arm weakness, not flaccid) and awake; not confused Speech / Cognition: normal speech, no expressive aphasia and no receptive aphasia Psychiatric: A+Ox3, euthymic affect Results & Data Vital Signs (Past 12 Hours) Vital Signs Temp Pulse Pulse Resp BP Pulse Ox O2 Del Method 07/10/24 11:01 36.7 C 70 17 162/84 H 95 Room Air 07/10/24 10:33 79 07/10/24 07:37 36.6 C 74 17 191/89 H 96 Room Air Signed By: <Electronically signed by Lori García PA-C> 07/10/24 1434 <Electronically signed by Jian Hernandez MD> 07/10/24 1503 Created: 07/10/24 1416 The status of this report is Signed. Draft = Not yet reviewed or approved by Medical Physician. Signed = Reviewed and approved by Medical Physician. Admission Exam Per Admitting Provider Constitutional: WD/WN, vitals as above healthy appearing, cooperative and comfortable; not in distress ENMT: Ears: no hearing impairment Neck: trachea midline Respiratory: normal respiratory effort, lungs clear to auscultation Auscultation: + diminished lung sounds Cardiovascular: Rate/Rhythm: regular rate and regular rhythm Vessels: posterior tibial pulses present, dorsalis pedis pulses present and radial pulses present; + abnormal peripheral pulses Extremities: normal capillary refill; no edema Gastrointestinal (Abdomen): Inspection/Auscultation: abdomen normal to inspection and normal bowel sounds Percussion/Palpation: abdomen soft; abdomen nontender Musculoskeletal: Extremities: extremities normal to inspection and + abnormal strength (LUE 2/5, RUE 5/5, BLE 5/5) Skin: no rashes, warm and dry Neurologic: moves all extremities, + focal motor deficit (L arm weakness, not flaccid) and awake; not confused Speech / Cognition: normal speech, no expressive aphasia and no receptive aphasia Psychiatric: A+Ox3, euthymic affect Principal Diagnosis 1. s/p R TCAR 2. Symptomatic R ICA stenosis Discharge Exam Constitutional WD/WN, vitals as above Neck trachea midline Respiratory normal respiratory effort; no respiratory distress Cardiovascular Rate/Rhythm: regular rate and regular rhythm Skin + incision (mild ecchymosis) Neurologic CN's II-XI intact bilaterally, moves all extremities and + focal motor deficit (left arm, no change from pre op) Psychiatric A+Ox3, euthymic affect Discharge Data Allergies Allergy/AdvReac Type Severity Reaction Status Date / Time shellfish derived Allergy Intermediate Diarrhea Verified 07/24/24 11:01 Consultations 07/24/24 16:36 Consult Lithopress Operator Routine Procedures Performed Operation Date: 07/24/24 13:00 Actual Procedures p Right Transcarotid Artery Revascularization(Right) - Jian Hernandez MD Ordered Studies 07/24/24 09:25 EV angio carotid cerv RT Routine US EV guide vascular access Routine Hospital Course (1) History of transcarotid artery revascularization (TCAR): POD#1 from a right tcar. No new focal deficits. Did well post op Discharge today Total Time Total Time Spent Total Time Spent (In Minutes): 0 Discharge Plan Discharge Items Patient Disposition: Home - Self-Care Reason For Visit: Right Carotid Artery Stenosis Discharge Diagnosis: Right carotid stenosis Activity: Per Instructions section Non-emergency contact: Surgeon Call non-emergency contact if: your temperature is above 101.5, your wound has increased redness, your wound has increased drainage and your wound pain has increased Follow-up/Referrals: Delbert Guzmán MD [Primary Care Provider] - 08/05/24 9:05 am (Primary Care Hospital Follow up is scheduled for August 05, 2024 at 9:05am.) Diet: Carb Consistent or DM2 and Heart Healthy Addtl Attending Provider Instructions: SPECIAL CARE INSTRUCTIONS: Medications: * Continue to take Aspirin, plavix, and statin as directed. Incision Care: * You may shower, but do not rub incision. You may let the warm soapy water run over it. Be sure to dry the incision well after bathing. * Do not shave directly over the incision until it is healed. * DO NOT IMMERSE THE INCISION IN A TUB/POOL/etc. UNTIL HEALED. Restrictions: * Do not drive for at least one week or if you are still taking any narcotic pain medication. * Do not lift anything heavier than a gallon of milk for one week after going home. Possible Complications: * Numbness - It is normal to have some numbness around the incision. Numbness can extend beyond the incision to areas of the neck, ear and face. The numbness is due to bruising of nerves during the surgery and will gradually improve over a period of months. * Hoarseness/Difficulty Speaking and Swallowing - The bruising of nerves in the neck can also cause a hoarse voice, difficulty speaking or swallowing. This may improve over time, HOWEVER, if it continues for more than a few days please contact our office ([phone]). * Excessive Swelling - There will be some swelling immediately after surgery which usually resolves within one week. If you notice that the swelling is getting worse, notify your surgeon ([phone]). * Drainage/Bleeding - If there is any drainage or bleeding, it should be a very small amount (less than a teaspoon per day). If you have excessive bleeding or drainage from the incision, call your surgeon ([phone]) right away. ACTIVATION OF EMERGENCY MEDICAL SYSTEM: Call 911, immediately, if you experience any of the following: Warning Signs and Symptoms of Stroke: * Sudden numbness or weakness of the face, arm or leg, especially on one side of the body * Sudden confusion, trouble speaking or understanding * Sudden trouble seeing in one or both eyes * Sudden trouble walking, dizziness, loss of balance or coordination * Sudden severe headache with no cause Do not delay calling 911 if you experience any warning signs or symptoms of a stroke. Delay in seeking medical attention may affect what treatments can be given to you. Risk Factors for Stroke: You can reduce your chances of stroke by working with your medical provider to adopt a healthy lifestyle. Some specific ways to lower your chance of stroke are: * If you are a smoker, now is the time to stop smoking cigarettes * If you are diabetic, improve the control of your blood sugars * Avoid excessive amounts of alcohol * Control high blood pressure * Lose weight if you are overweight * Be sure to lead an active lifestyle * Eat a healthy diet low in salt, cholesterol and fat You should know about other risk factors for stroke that you are unable to control. These include: * Age 55 years or older * Male gender * Certain racial groups: , or / * Family History of Stroke, Mini stroke or Heart Attack * Sickle Cell Disease You will be receiving a call from the Vascular Surgery Nurse after you are discharged. FOLLOW UP VISIT: It is important for you to keep your follow up appointments with your medical provider. Keep any scheduled doctor appointments. Call [phone] to schedule a follow up appointment if one not already scheduled. Pending Studies at Discharge: No Stand-Alone Forms: [facility], Smoking Cessation Medications and DC Order Prescriptions: New oxycodone 5 mg tablet 5 mg PO Q8H PRN (Reason: pain) Qty: 7 0RF Continued verapamil 180 mg tablet extended release 180 mg PO QAM levothyroxine 25 mcg tablet 25 mcg PO DAILYBB metformin 500 mg tablet 1,000 mg PO BID oxybutynin chloride 10 mg tablet extended release 24hr 10 mg PO QAM aspirin 81 mg Tablet,Delayed Release (Dr/Ec) 81 mg PO QAM lisinopril 10 mg Tablet 10 mg PO QAM Qty: 30 0RF atorvastatin 80 mg tablet 80 mg PO HS Qty: 30 3RF Rx Instructions: Take 80mg daily at night. clopidogrel [Plavix] 75 mg tablet 75 mg PO QAM Discharge Orders: Discharge Order (Routine); Ordered 07/25/24 Ordered By: Jian Hernandez Admission Data Admit Date/Time: 07/24/24 12:31 Attending Provider: Jian Hernandez Admit Provider: Jian Hernandez Primary Care Provider: Delbert Guzmán Other Providers: Derrick Wilder; Robert Conway; Reggie Melissa; Adelfo Mendoza; Erika Flowers Muqueet; Thom Angelo; Ludmila Sánchez; Estephania Paul; Surya Varela; Jonh Siddiqi; Kaykay Griffin Other Interventions: Discharge Summary Assessment (RN) Last Done: 07/25/24 13:22
== END 2024-07-25 14:17 | disposition home or self-care (01) | DRG 36 ==
LOC: ASU 10:42 → 1E 13:10
PROC: EV.TCAR (2024-07-24 13:00)

== ENCOUNTER 2024-11-27 09:06 | Inpatient (IN) ==
--- NOTE | 2024-11-27 09:41 | Emergency Department Note ---
Impression & Plan Near syncope, Anemia, GIB (gastrointestinal bleeding), Iron deficiency, On clopidogrel therapy ED Provider Note NAME: TC JORGE AGE: 84 SEX: M : 1940 ARRIVES VIA: Ambulance INFORMANT: Patient ED PROVIDER(S): Rom Chandra MD CHIEF COMPLAINT: Syncope PLAN: Disposition: Admit MEDICAL DECISION MAKING: The patient is a pleasant 84-year-old gentleman with a past medical history of CVA and history of TCAR in July 2024, hypertension, hyperlipidemia who presents to the emergency department via EMS accompanied by his for evaluation of syncopal/near syncopal episode that occurred prior to arrival when he got out of bed and was dizzy and fell back onto the bed. reports that he got up again and then nearly fainted but fell over into the nightstand breaking the nightstand. He denies losing consciousness. He reports of feeling fullness in the back of his head that is reminiscent of when he had a stroke. He does have mild residual left arm and left leg weakness but ambulates without cane or walker. He denies any changes to these symptoms or new symptoms otherwise. He denies chest pain, shortness of breath, fevers, chills, cough, congestion, nausea, vomiting or diarrhea. He reports his stool is brown without melena or blood. He does admit that since his stroke in July he has had frequent abdominal bloating and poor appetite where he is lost "30 pounds". On evaluation the patient is fatigued appearing but no distress, afebrile with heart rate in the 90s and vital signs otherwise stable. He appears clinically dry. He has no focal neurologic deficit at this time. EKG without overt acute ischemia. CXR negative for acute cardiopulmonary process per my personal preliminary review/interpretation. WBC 7.4K without left shift. Platelets within normal limits. H/H 7.5/24.6 with MCV of 79, decreased from hemoglobin of 11 in July. Iron is mildly low at 34. Chemistry without metabolic acidosis. BUN is elevated at 44. Creatinine is normal. Magnesium 1.6 with IV repletion provided. High-sensitivity troponin 5.2, within normal limits. Lipase is normal. TSH within normal limits. UA without evidence of infection. 1+ ketones are present. Respiratory BioFire was negative. CT of the head and CT of the head and neck performed were negative for ICH, ischemia or severe narrowing occlusion of large vessels. Patient's new anemia was reviewed with the patient his at the bedside. Rectal examination was performed and demonstrates brown stool without melena or blood but was Hemoccult positive. Thus, given elevated BUN suspect may be related to occult upper GI bleed. 40 mg of IV Protonix was ordered. Type and cross ordered to hold 1 unit PRBCs. Given the patient's near syncope with new anemia patient does agree with plan for admission for further management. Case was discussed with TOM Vick PAC, with TOM Porter hospitalist who will evaluate the patient for admission. Further management per admitting team. Triage Nursing notes reviewed and agree them. Prior/external medical records reviewed Vital Signs: reviewed Differential diagnosis: Vasovagal event, dehydration, infection, hypoglycemia, electrolyte abnormalities, cardiac sources, intracerebral event, pulmonary embolism, seizure, toxicologic, neurologic, as well as other pathologies. ER treatment provided: See below. Diagnostics interpreted by me: ECG: Normal sinus rhythm, 92 bpm, no ectopy, no overt ST elevation or depression, QTc 457, QRS 86. Cardiac Monitoring: An order for continuous cardiac monitoring was placed and demonstrated Normal sinus rhythm, 92 bpm, no ectopy. Laboratory studies: See below Imaging studies: See below Consultation(s): TOM Vick PAC, with TOM Porter hospitalist HPI: The patient is a pleasant 84-year-old gentleman with a past medical history of CVA and history of TCAR in July 2024, hypertension, hyperlipidemia who presents to the emergency department via EMS accompanied by his for evaluation of syncopal/near syncopal episode that occurred prior to arrival when he got out of bed and was dizzy and fell back onto the bed. reports that he got up again and then nearly fainted but fell over into the nightstand breaking the nightstand. He denies losing consciousness. He reports of feeling fullness in the back of his head that is reminiscent of when he had a stroke. He does have mild residual left arm and left leg weakness but ambulates without cane or walker. He denies any changes to these symptoms or new symptoms otherwise. He denies chest pain, shortness of breath, fevers, chills, cough, congestion, nausea, vomiting or diarrhea. He reports his stool is brown without melena or blood. He does admit that since his stroke in July he has had frequent abdominal bloating and poor appetite where he is lost "30 pounds". ROS: See above HPI for pertinent positives & negatives. A total of 10 systems reviewed and were otherwise negative. VITALS:See Below PHYSICAL EXAMINATION: GENERAL: Awake, alert, fatigued-appearing, in no distress HENT: Normocephalic, atraumatic. Oropharynx with dry mucous membranes and otherwise unremarkable. EYES: Normal conjunctiva. Sclera non-icteric. EOMI. No nystamgus. PEARRL. NECK: Supple. No nuchal rigidity. FROM. No JVD. RESPIRATORY: Clear to auscultation. CARDIAC: Regular rate, normal rhythm. Extremities warm and well perfused. Pulses equal. ABDOMEN: Soft, non-distended. No tenderness to palpation. No rebound or guarding. No masses. RECTAL: Brown stool without melena or blood. Hemoccult positive. MUSCULOSKELETAL: Chest examination reveals no tenderness. The back is symmetrical on inspection without obvious abnormality. There is no CVA tenderness to palpation. No joint edema. LOWER EXTREMITIES: Calves are equal size bilaterally and non-tender. No edema. No discoloration. NEURO: Normal sensorium. No sensory or motor deficits noted. CNII-XII grossly intact. 5/5 strength and SILT x 4 extremities. Intact nnswir-oh-bloa. SKIN: No rash or jaundice noted. Rom Chandra MD Past Med/Surg History Problem List (Updated 11/27/24 @ 15:39 by Rom Chandra MD) On clopidogrel therapy (Acute) Iron deficiency (Acute) GIB (gastrointestinal bleeding) (Acute) Anemia (Acute) Near syncope (Acute) Anemia History of transcarotid artery revascularization (TCAR) Chest pressure Chest pain (Acute) Bilateral carotid artery disease HTN (hypertension) (Acute) Gout Hyperglycemia due to type 2 diabetes mellitus Acute foot pain (Acute) TIA (transient ischemic attack) CVA vs TIA 2012 History of CVA (cerebrovascular accident) (Acute) 07/09/24 Numbness and tingling of right arm (Acute) Dizziness (Acute) Vertigo Hypothyroid Hypercholesteremia Diabetes Kidney disease Upper extremity neuropathy (Acute 10/06/13) Occipital neuralgia (Acute) Left ear injury (Acute) Headache (Acute) Stomach problems (Chronic) Urinary problem (Chronic) Medical History (Updated 11/27/24 @ 15:39 by Rom Chandra MD) LVH (left ventricular hypertrophy) severe cLVH per 07/10/24 ECHO CKD (chronic kidney disease) History of depression r/t first stroke - no issues currently Hypothyroidism HTN (hypertension) Gout 01/24/24-01/25/24 [facility]; Rx colchicine Diabetes mellitus, type 2 Hx: UTI (urinary tract infection) 01/2024 [facility] admission sepsis 2/2 UTI; resolved Hx of sepsis / to UTI 01/2024 admission Carotid stenosis 07/09/24 imagin% stenosis of the proximal right ICA and 60% stenosis on the left History of bladder cancer 2010; s/p BCG tx Urinary frequency CVA (cerebral vascular accident) 06/2013 in [place] (CVA vs TIA per chart review) 07/09/24 [facility]: presented with LUE weakness; 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, associated 90% proximal R ICA stenosis, 60% stenosis L; plan for R TCAR; per pt, no residual sx Surgical History (Updated 08/11/24 @ 00:08 by Jairo Woodall) History of bladder surgery Hx of Achilles tendon repair Right Hx of colonoscopy Hx of appendectomy Family History Mother Hypertension Father Tuberculosis Social History Smoking Status: Never smoker Tobacco Type: Cigarettes Second Hand Exposure: No; Do You Dip or Chew Tobacco: No; Hx Alcohol Use: Yes Alcohol type: wine Alcohol Intake Frequency Comment: 1 glass with dinner 4 times per week Hx Substance Use: No Preferred Language: Micronesian Communication Ability: Effective 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 Feels Safe at Home: Yes Assistive Devices: None Allergies Allergies Allergy/AdvReac Type Severity Reaction Status Date / Time shellfish derived Allergy Intermediate Diarrhea Verified 11/27/24 12:39 Home Meds Home Medications Medication Instructions Recorded Confirmed levothyroxine 25 mcg tablet 25 mcg PO DAILYBB 08/19/19 11/27/24 verapamil 180 mg tablet,extended 180 mg PO QAM 08/19/19 11/27/24 release metformin 500 mg tablet 1,000 mg PO BID 04/15/21 11/27/24 aspirin 81 mg tablet,delayed 81 mg PO QAM 01/24/24 11/27/24 release clopidogrel 75 mg tablet (Plavix) 75 mg PO QAM 07/16/24 11/27/24 escitalopram oxalate 10 mg tablet 10 mg PO DAILY 11/27/24 11/27/24 mirtazapine 15 mg tablet 7.5 mg PO HS 11/27/24 11/27/24 omeprazole 20 mg capsule,delayed 20 mg PO DAILY 11/27/24 11/27/24 release Previous Rx's Medication Instructions Recorded atorvastatin 80 mg tablet 80 mg PO HS #30 tabs 07/22/24 lisinopril 10 mg tablet 10 mg PO QAM #30 tabs 07/22/24 Results & Data (ED) Vital Signs Vital Signs - 24 hr 11/27/24 09:17 11/27/24 09:27 11/27/24 09:30 Temperature Temperature Source Pulse Rate 91 H Pulse Rate from SpO2 Sensor 91 H Respiratory Rate 16 Respiratory Effort / Characteristics Respiratory Depth Respiratory Pattern Blood Pressure 138/66 128/67 Blood Pressure Mean 95 95 Blood Pressure Position Pulse Oximetry 97 Oxygen Delivery Method Sepsis Recent Fever Within 48 Hours Sepsis New/Unexplained Change in Mental Status Sepsis Action Taken by Nursing 11/27/24 09:35 11/27/24 09:36 11/27/24 09:38 Temperature 36.7 C Temperature Source Oral Pulse Rate 91 H 92 H 87 Pulse Rate from SpO2 Sensor 91 H Respiratory Rate 19 18 Respiratory Effort / Characteristics Non-Labored Spontaneous Respiratory Depth Normal Respiratory Pattern Regular Blood Pressure 138/66 Blood Pressure Mean 90 Blood Pressure Position Lying Pulse Oximetry 96 98 Oxygen Delivery Method Room Air Sepsis Recent Fever Within 48 Hours No Sepsis New/Unexplained Change in Mental Status N/A Sepsis Action Taken by Nursing No Action Required 11/27/24 09:44 11/27/24 10:00 11/27/24 10:30 Temperature Temperature Source Pulse Rate 94 H Pulse Rate from SpO2 Sensor 94 H Respiratory Rate 17 Respiratory Effort / Characteristics Respiratory Depth Respiratory Pattern Blood Pressure 141/69 H Blood Pressure Mean 90 Blood Pressure Position Pulse Oximetry 95 96 Oxygen Delivery Method Room Air Sepsis Recent Fever Within 48 Hours Sepsis New/Unexplained Change in Mental Status Sepsis Action Taken by Nursing 11/27/24 10:30 11/27/24 10:36 11/27/24 11:15 Temperature Temperature Source Pulse Rate 92 H 97 H Pulse Rate from SpO2 Sensor 92 H 97 H Respiratory Rate 18 21 Respiratory Effort / Characteristics Respiratory Depth Respiratory Pattern Blood Pressure 141/69 H Blood Pressure Mean 90 Blood Pressure Position Pulse Oximetry 98 97 Oxygen Delivery Method Sepsis Recent Fever Within 48 Hours Sepsis New/Unexplained Change in Mental Status Sepsis Action Taken by Nursing 11/27/24 11:18 11/27/24 11:32 11/27/24 11:33 Temperature Temperature Source Pulse Rate 95 H 102 H Pulse Rate from SpO2 Sensor 96 H 102 H Respiratory Rate 24 22 Respiratory Effort / Characteristics Respiratory Depth Respiratory Pattern Blood Pressure 147/72 H Blood Pressure Mean 110 Blood Pressure Position Pulse Oximetry 98 97 Oxygen Delivery Method Sepsis Recent Fever Within 48 Hours Sepsis New/Unexplained Change in Mental Status Sepsis Action Taken by Nursing 11/27/24 11:39 11/27/24 12:00 11/27/24 12:15 Temperature Temperature Source Pulse Rate 98 H 101 H Pulse Rate from SpO2 Sensor 99 H 101 H Respiratory Rate 26 H 18 Respiratory Effort / Characteristics Respiratory Depth Respiratory Pattern Blood Pressure 145/73 H Blood Pressure Mean 89 Blood Pressure Position Pulse Oximetry 97 97 Oxygen Delivery Method Sepsis Recent Fever Within 48 Hours Sepsis New/Unexplained Change in Mental Status Sepsis Action Taken by Nursing 11/27/24 12:30 11/27/24 12:30 11/27/24 12:30 Temperature Temperature Source Pulse Rate 108 H Pulse Rate from SpO2 Sensor 108 H Respiratory Rate 20 Respiratory Effort / Characteristics Respiratory Depth Respiratory Pattern Blood Pressure 156/99 H 156/99 H Blood Pressure Mean 113 113 Blood Pressure Position Pulse Oximetry 97 Oxygen Delivery Method Sepsis Recent Fever Within 48 Hours Sepsis New/Unexplained Change in Mental Status Sepsis Action Taken by Nursing 11/27/24 12:57 11/27/24 13:00 11/27/24 13:09 Temperature Temperature Source Pulse Rate 102 H 116 H Pulse Rate from SpO2 Sensor 103 H 111 H Respiratory Rate 21 22 Respiratory Effort / Characteristics Respiratory Depth Respiratory Pattern Blood Pressure 135/76 Blood Pressure Mean 109 Blood Pressure Position Pulse Oximetry 96 96 Oxygen Delivery Method Sepsis Recent Fever Within 48 Hours Sepsis New/Unexplained Change in Mental Status Sepsis Action Taken by Nursing 11/27/24 13:21 11/27/24 13:31 11/27/24 13:35 Temperature Temperature Source Pulse Rate 108 H 106 H Pulse Rate from SpO2 Sensor 108 H Respiratory Rate 19 Respiratory Effort / Characteristics Respiratory Depth Respiratory Pattern Blood Pressure 183/71 H Blood Pressure Mean 104 Blood Pressure Position Pulse Oximetry 97 Oxygen Delivery Method Sepsis Recent Fever Within 48 Hours Sepsis New/Unexplained Change in Mental Status Sepsis Action Taken by Nursing 11/27/24 13:48 11/27/24 14:00 11/27/24 14:00 Temperature Temperature Source Pulse Rate 108 H 108 H Pulse Rate from SpO2 Sensor 108 H 108 H Respiratory Rate 22 19 Respiratory Effort / Characteristics Respiratory Depth Respiratory Pattern Blood Pressure 170/89 H Blood Pressure Mean 132 Blood Pressure Position Pulse Oximetry 96 96 Oxygen Delivery Method Sepsis Recent Fever Within 48 Hours Sepsis New/Unexplained Change in Mental Status Sepsis Action Taken by Nursing Laboratory Data Attestation: I reviewed the patient's lab results. 11/27/24 14:30 11/27/24 09:30 Lab Results 11/27/24 11/27/24 11/27/24 Range/Units 09:30 09:36 09:56 WBC 7.43 (4.8-10.8) K/ul RBC 3.11 L (4.70-6.10) M/uL Hgb 7.5 L (14.0-18.0) g/dl POC Hgb 8.5 L (14.0-18.0) g/dl Hct 24.6 L (42.0-52.0) % POC Hct 25 L (42-52) % MCV 79.1 L (80.0-100.0) fL MCH 24.1 L (25.0-34.0) pg MCHC 30.5 L (32.0-36.0) g/dL RDW Std Deviation 49.2 H (36.4-46.3) fL RDW Coeff of Parvin 17.1 H (11.5-14.5) % Plt Count 230 (130-400) K/uL MPV 8.9 L (9.4-12.4) fL Immature Gran % (Auto) 0.5 % Neut % (Auto) 65.9 % Lymph % (Auto) 21.4 % [place] % (Auto) 7.1 % Eos % (Auto) 4.6 % Baso % (Auto) 0.5 % Reticulocyte % (Auto) 1.56 (0.50-2.00) % Neut # (Auto) 4.89 (1.40-6.50) K/uL Lymph # (Auto) 1.59 (1.20-3.40) K/uL [place] # (Auto) 0.53 (0.11-0.59) K/uL Eos # (Auto) 0.34 (0.00-0.50) K/uL Baso # (Auto) 0.04 (0.00-0.20) K/uL Reticulocyte # 0.050 (0.020-0.100) 10^6/uL Immature Gran # (Auto) 0.04 (0.01-0.20) K/uL Polychromasia 1+ Hypochromasia Present Ovalocytes 1+ PT 11.9 (9.0-12.0) Seconds INR 1.1 (0.9-1.1) POC Sodium 143 (135-144) mmol/L Sodium 141 (136-145) mmol/L POC Potassium 4.2 (3.3-5.0) mmol/L Potassium 4.2 (3.5-5.1) mmol/L POC Chloride 110 (101-112) mmol/L Chloride 111 H (98-107) mmol/L Carbon Dioxide 22 (21-32) mmol/L POC Total CO2 19 L (24-31) mmol/L Anion Gap 8 (3-11) POC Anion Gap 19.0 (16-25) mmol/L POC BUN 39 H (7-18) mg/dl BUN 44 H (6-23) mg/dl Creatinine 0.87 (0.6-1.4) mg/dl POC Creatinine 1.0 (0.6-1.3) mg/dl Est Cr Clr Drug Dosing 58.1 ml/min eGFR 85.61 BUN/Creatinine Ratio 50.6 H (10-20) Glucose 160 H (70-99(Fasting)) mg/dl POC Glucose (other) 152 H (70-99) mg/dl Calcium 8.5 L (8.6-10.3) mg/dl POC Ioniz Calcium Archie 1.21 (1.12-1.32) mmol/l Phosphorus 2.4 L (2.5-4.9) mg/dl Magnesium 1.6 L (1.7-2.4) mg/dl Iron 34 L (35-175) mcg/dl Unsaturated IBC 329 (155-355) mcg/dl Transferrin 315 (200-360) mg/dl Ferritin 7.7 L (8-388) ng/ml Total Bilirubin 0.3 (0.2-1.0) mg/dl AST 13 (13-39) U/L ALT 12 (7-52) U/L Alkaline Phosphatase 59 (34-104) U/L Troponin I High Sens 5.2 (0-20) pg/ml Total Protein 5.9 L (6.0-8.3) gm/dl Albumin 3.7 (3.4-5.0) gm/dl Globulin 2.2 L (2.5-4.0) gm/dl Albumin/Globulin Ratio 1.7 (0.9-2) Lipase 38 (11-82) U/L TSH 2.804 (0.300-4.500) uIu/ml Urine Color Urine Appearance (Clear) Urine pH (4.5-7.5) Ur Specific [place] (1.000-1.030) Urine Protein (Negative) Urine Glucose (UA) (Negative) Urine Ketones (Negative) Urine Blood (Negative) Urine Nitrite (Negative) Urine Bilirubin (Negative) Urine Urobilinogen (Negative) Ur Leukocyte Esterase (Negative) Adenovirus (PCR) Not Detected (NotDetected) B. pertussis DNA (PCR) Not Detected (NotDetected) B.parapertussis DNA PCR Not Detected (NotDetected) C. pneumoniae DNA (PCR) Not Detected (NotDetected) Coronavirus OC43 (PCR) Not Detected (NotDetected) Coronavirus HKU1 (PCR) Not Detected (NotDetected) Coronavirus 229E (PCR) Not Detected (NotDetected) SARS-CoV-2 (PCR) Not Detected (NotDetected) Coronavirus NL63 (PCR) Not Detected (NotDetected) Human Metapneumovir PCR Not Detected (NotDetected) Influenza Type A (PCR) Not Detected (NotDetected) Influenza Type B (PCR) Not Detected (NotDetected) M. pneumoniae (PCR) Not Detected (NotDetected) Parainfluenza 1 (PCR) Not Detected (NotDetected) Parainfluenza 2 (PCR) Not Detected (NotDetected) Parainfluenza 3 (PCR) Not Detected (NotDetected) Parainfluenza 4 (PCR) Not Detected (NotDetected) RSV (PCR) Not Detected (NotDetected) Entero/Rhino (PCR) Not Detected (NotDetected) Blood Type Antibody Screen Crossmatch 11/27/24 11/27/24 Range/Units 10:20 13:01 WBC (4.8-10.8) K/ul RBC (4.70-6.10) M/uL Hgb (14.0-18.0) g/dl POC Hgb (14.0-18.0) g/dl Hct (42.0-52.0) % POC Hct (42-52) % MCV (80.0-100.0) fL MCH (25.0-34.0) pg MCHC (32.0-36.0) g/dL RDW Std Deviation (36.4-46.3) fL RDW Coeff of Parvin (11.5-14.5) % Plt Count (130-400) K/uL MPV (9.4-12.4) fL Immature Gran % (Auto) % Neut % (Auto) % Lymph % (Auto) % [place] % (Auto) % Eos % (Auto) % Baso % (Auto) % Reticulocyte % (Auto) (0.50-2.00) % Neut # (Auto) (1.40-6.50) K/uL Lymph # (Auto) (1.20-3.40) K/uL [place] # (Auto) (0.11-0.59) K/uL Eos # (Auto) (0.00-0.50) K/uL Baso # (Auto) (0.00-0.20) K/uL Reticulocyte # (0.020-0.100) 10^6/uL Immature Gran # (Auto) (0.01-0.20) K/uL Polychromasia Hypochromasia Ovalocytes PT (9.0-12.0) Seconds INR (0.9-1.1) POC Sodium (135-144) mmol/L Sodium (136-145) mmol/L POC Potassium (3.3-5.0) mmol/L Potassium (3.5-5.1) mmol/L POC Chloride (101-112) mmol/L Chloride (98-107) mmol/L Carbon Dioxide (21-32) mmol/L POC Total CO2 (24-31) mmol/L Anion Gap (3-11) POC Anion Gap (16-25) mmol/L POC BUN (7-18) mg/dl BUN (6-23) mg/dl Creatinine (0.6-1.4) mg/dl POC Creatinine (0.6-1.3) mg/dl Est Cr Clr Drug Dosing ml/min eGFR BUN/Creatinine Ratio (10-20) Glucose (70-99(Fasting)) mg/dl POC Glucose (other) (70-99) mg/dl Calcium (8.6-10.3) mg/dl POC Ioniz Calcium Archie (1.12-1.32) mmol/l Phosphorus (2.5-4.9) mg/dl Magnesium (1.7-2.4) mg/dl Iron (35-175) mcg/dl Unsaturated IBC (155-355) mcg/dl Transferrin (200-360) mg/dl Ferritin (8-388) ng/ml Total Bilirubin (0.2-1.0) mg/dl AST (13-39) U/L ALT (7-52) U/L Alkaline Phosphatase (34-104) U/L Troponin I High Sens (0-20) pg/ml Total Protein (6.0-8.3) gm/dl Albumin (3.4-5.0) gm/dl Globulin (2.5-4.0) gm/dl Albumin/Globulin Ratio (0.9-2) Lipase (11-82) U/L TSH (0.300-4.500) uIu/ml Urine Color Yellow Urine Appearance Clear (Clear) Urine pH 5.0 (4.5-7.5) Ur Specific [place] 1.029 (1.000-1.030) Urine Protein Negative (Negative) Urine Glucose (UA) Trace H (Negative) Urine Ketones 1+ H (Negative) Urine Blood Negative (Negative) Urine Nitrite Negative (Negative) Urine Bilirubin Negative (Negative) Urine Urobilinogen Negative (Negative) Ur Leukocyte Esterase Negative (Negative) Adenovirus (PCR) (NotDetected) B. pertussis DNA (PCR) (NotDetected) B.parapertussis DNA PCR (NotDetected) C. pneumoniae DNA (PCR) (NotDetected) Coronavirus OC43 (PCR) (NotDetected) Coronavirus HKU1 (PCR) (NotDetected) Coronavirus 229E (PCR) (NotDetected) SARS-CoV-2 (PCR) (NotDetected) Coronavirus NL63 (PCR) (NotDetected) Human Metapneumovir PCR (NotDetected) Influenza Type A (PCR) (NotDetected) Influenza Type B (PCR) (NotDetected) M. pneumoniae (PCR) (NotDetected) Parainfluenza 1 (PCR) (NotDetected) Parainfluenza 2 (PCR) (NotDetected) Parainfluenza 3 (PCR) (NotDetected) Parainfluenza 4 (PCR) (NotDetected) RSV (PCR) (NotDetected) Entero/Rhino (PCR) (NotDetected) Blood Type A Positive Antibody Screen NEGATIVE Crossmatch See Detail Administered Medications Discontinued Medications Sodium Chloride (Nss) 1,000 mls @ 999 mls/hr IV .Q1H1M ONE Stop: 11/27/24 10:38 Last Infusion: 11/27/24 11:38 Dose: Infused Documented By: Admin: 11/27/24 10:18 Dose: 999 mls/hr Documented By: COURTNEY Magnesium Sulfate/Dextrose (Magnesium Sulfate / D5w) 1 gm in 100 mls @ 100 mls/hr IV NOW STA Stop: 11/27/24 12:05 Last Infusion: 11/27/24 12:22 Dose: Infused Documented By: Admin: 11/27/24 11:18 Dose: 100 mls/hr Documented By: COURTNEY Pantoprazole Sodium (Protonix) 40 mg in 10 mls @ 5 mls/min IV NOW ONE Stop: 11/27/24 12:49 Last Admin: 11/27/24 13:16 Dose: 5 mls/min Documented By: DEON Ioversol (Optiray 320 125ml) 112 ml IV ONCE ONE Stop: 11/27/24 10:02 Last Admin: 11/27/24 10:01 Dose: 112 ml Documented By: SARAI Imaging Data Radiologist's Impression: Chest X-Ray 11/27/24 09:38 XR chest 1V portable CLINICAL HISTORY: dizziness TECHNIQUE: Single frontal radiograph of the chest was obtained. Comparison: Comparison is made to chest radiograph 07/21/2024 FINDINGS: No lines and tubes are seen. The cardiomediastinal silhouette is normal. The lungs are clear. No evidence of pleural effusion or pneumothorax. IMPRESSION: No acute chest disease. ACT 112: Negative or not required by law. Electronically signed by: Miko Mcduffie M.D. 11/27/2024 10:[address] 11/27/24 09:51 CT head/brain wo con CLINICAL HISTORY: dizziness, h/o cva Technique: Contiguous axial CT images of the head were acquired from the base of the skull to the vertex without intravenous contrast administration. Images were viewed in brain, subdural and bone windows. Automated dose lowering techniques and/or adjustment according to patient size were utilized for this exam. Comparison: None available at the time of this dictation. Findings: Areas of decreased attenuation are present in the periventricular and subcortical white matter bilaterally consistent with small vessel ischemic disease. Generalized cerebral atrophy with commensurate enlargement of the ventricles, sulci, and cisterns is also present. There is no acute intracranial hemorrhage or evidence of acute territorial infarction. No shift of the midline structures, mass effect, or extra-axial abnormalities are shown. Atherosclerotic calcifications are present in the intracranial segments of the internal carotid arteries. Imaged portions of the paranasal sinuses and mastoid air cells are clear. The orbits appear normal. There are no acute fractures of the calvaria or scalp swelling. Impression: No acute intracranial hemorrhage, no evidence of acute territorial infarction or other acute intracranial disease process. ACT 112: Negative or not required by law. Electronically signed by: Miko Mcduffie M.D. 11/27/2024 10:22 AM Head CTA 11/27/24 09:51 CTA ANGIOGRAPHY OF THE HEAD CLINICAL HISTORY: dizziness, h/o cva COMPARISON STUDY: CTA of the head July 21, 2024. MRI of the brain July 10, 2024. TECHNIQUE: Helical axial images of the head were obtained following uneventful intravenous administration of 112 cc of Optiray. Sagittal and coronal reconstructions were viewed as well as maximal intensity projections on an independent 3-D workstation. Automated exposure control was utilized for the study. A dose lowering technique was utilized adhering to the principles of ALARA. CT DOSE: 1225.75 mGy.cm FINDINGS: No acute intracranial hemorrhage, midline shift or mass effect is present. Ventricular system is stable. Basal cisterns are patent. There are no extra-axial collections. The bilateral M1, M2, A1 and A2 segments are patent. Right vertebral artery is diminutive. This is unchanged and likely on a congenital basis. The basilar artery is patent. The posterior cerebral arteries are patent. There are large bilateral posterior communicating arteries. No vessel cut off is identified. There is no intracranial aneurysm. No stenoses within the intracranial vessels are present. IMPRESSION: No large vessel occlusion. No intracranial aneurysm. ACT 112: Negative or not required by law. Electronically signed by: Jaden Acevedo M.D. 11/27/2024 10:51 AM Neck CTA 11/27/24 09:51 CT angio neck with con CLINICAL HISTORY: dizziness, h/o cva. COMPARISON STUDY: 07/21/2024 TECHNIQUE: Following the IV administration of 112 of Optiray, CT angiogram of the neck was performed from the aortic arch to the skull base. Images are reviewed in the axial, sagittal, and coronal planes. 3-D MIPS images are created and assessed. IV contrast was administered without complication. All measurements were calculated based on NASCET criteria. A dose lowering technique was utilized adhering to the principles of ALARA. CT DOSE: 1225 FINDINGS: There are scattered atherosclerotic calcifications. Interval stent extending from the distal right common carotid artery to the proximal right internal carotid artery demonstrates mild narrowing through the carotid bulb, otherwise widely patent. There is stable mild focal narrowing distally at the left ICA at the C3 level. Otherwise no significant narrowing or occlusion seen at the common or internal carotid arteries bilaterally. The left vertebral artery is dominant and widely patent. The right vertebral artery is extremely diminutive and terminates in PICA, stable. IMPRESSION: No significant arterial narrowing or occlusion seen on CTA of the neck. Otherwise as described. ACT 112: Negative or not required by law. The above report was generated using voice recognition software. It may contain grammatical, syntax or spelling errors. Electronically signed by: Surya Mejia M.D. 11/27/2024 10:28 AM Discharge Plan Visit Data Chief Complaint: Fall Stated Complaint: FALL, DIZZY, NEURO ASSESSMENT ED Provider: Rom Chandra Discharge Problem: Near syncope, Anemia, GIB (gastrointestinal bleeding), Iron deficiency, On clopidogrel therapy Patient Disposition: Admitted As Inpatient Discharge Instructions Interventions: ED Discharge Assessment Last Done: 11/27/24 15:11 Discharge Problem: Anemia Qualifiers: Anemia type: unspecified type Qualified Code(s): D64.9 - Anemia, unspecified GIB (gastrointestinal bleeding) Qualifiers: GI bleed type/associated pathology: unspecified gastrointestinal hemorrhage type Qualified Code(s): K92.2 - Gastrointestinal hemorrhage, unspecified
[2024-11-27 09:48] LABS: iSTAT Hemoglobin 8.5 g/dl (14.0-18.0); iSTAT Ionized Calcium 1.21 mmol/l (1.12-1.32); iSTAT Potassium 4.2 mmol/L (3.3-5.0)
[2024-11-27] MEDS: OPTIRAY 320 125ml IV ONE (10:01)
--- NOTE | 2024-11-27 10:03 | XRay Report ---
XR chest 1V portable CLINICAL HISTORY: dizziness TECHNIQUE: Single frontal radiograph of the chest was obtained. Comparison: Comparison is made to chest radiograph 07/21/2024 FINDINGS: No lines and tubes are seen. The cardiomediastinal silhouette is normal. The lungs are clear. No evid ence of pleural effusion or pneumothorax. IMPRESSION: No acute chest disease. ACT 112: Negative or not required by law. Electronically signed by: Miko Mcduffie M.D. 11/27/2024 10:02 AM
[2024-11-27 10:14] LABS: Basophils # (auto) 0.04 K/uL (0.00-0.20); Basophils % (auto) 0.5 %; Eosinophils # (auto) 0.34 K/uL (0.00-0.50); Eosinophils % (auto) 4.6 %; Hematocrit (blood only) 24.6 % (42.0-52.0); Hemoglobin 7.5 g/dl (14.0-18.0); Immature Granulocytes # (auto) 0.04 K/uL (0.01-0.20); Immature Granulocytes % (auto) 0.5 %; Lymphocytes # (auto) 1.59 K/uL (1.20-3.40); Lymphocytes % (auto) 21.4 %; Mean Corpuscular Hemoglobin 24.1 pg (25.0-34.0); Mean Corpuscular Hgb Conc 30.5 g/dL (32.0-36.0); Mean Corpuscular Volume 79.1 fL (80.0-100.0); Mean Platelet Volume 8.9 fL (9.4-12.4); Monocytes # (auto) 0.53 K/uL (0.11-0.59); Monocytes % (auto) 7.1 %; Neutrophils # (auto) 4.89 K/uL (1.40-6.50); Neutrophils % (auto) 65.9 %; Platelet Count 230 K/uL (130-400); RDW Coefficient of Variation 17.1 % (11.5-14.5); RDW Standard Deviation 49.2 fL (36.4-46.3); Red Blood Count 3.11 M/uL (4.70-6.10); White Blood Count 7.43 K/ul (4.8-10.8)
[2024-11-27] MEDS: SODIUM CHLORIDE 0.9% 1,000 ML IV ONE (10:18)
--- NOTE | 2024-11-27 10:23 | CT Scan Report ---
CT head/brain wo con CLINICAL HISTORY: dizziness, h/o cva Technique: Contiguous axial CT images of the head were acquired from the base of the skull to the tatiana rahul without intravenous contrast administration. Images were viewed in brain, subdural and [facility]. Automated dose lowering techniques and/or adjustment according to patient size were utilized for this exam. Comparison: None available at the time of this dictation. Findings: Areas of decreased attenuation are present in the periventricular and subcortical white matter bilate rally consistent with small vessel ischemic disease. Generalized cerebral atrophy with commensurate e nlargement of the ventricles, sulci, and cisterns is also present. There is no acute intracranial hem orrhage or evidence of acute territorial infarction. No shift of the midline structures, mass effect, or extra-axial abnormalities are shown. Atherosclerotic calcifications are present in the intracran ial segments of the internal carotid arteries. Imaged portions of the paranasal sinuses and mastoid air cells are clear. The orbits appear normal. There are no acute fractures of the calvaria or scalp swelling. Impression: No acute intracranial hemorrhage, no evidence of acute territorial infarction or other acute intracra nial disease process. ACT 112: Negative or not required by law. Electronically signed by: Miko Mcduffie M.D. 11/27/2024 10:22 AM
[2024-11-27 10:29] LABS: Albumin Globulin Ratio 1.7 (0.9-2); Albumin Level 3.7 gm/dl (3.4-5.0); BUN Creatinine Ratio 50.6 (10-20); Bilirubin,Total 0.3 mg/dl (0.2-1.0); Calcium 8.5 mg/dl (8.6-10.3); Creatinine Clr Calc Pharmacy 58.1 ml/min; Globulin 2.2 gm/dl (2.5-4.0); Magnesium 1.6 mg/dl (1.7-2.4); Phosphorus 2.4 mg/dl (2.5-4.9); Potassium 4.2 mmol/L (3.5-5.1); Total Protein 5.9 gm/dl (6.0-8.3)
--- NOTE | 2024-11-27 10:30 | CT Scan Report ---
CT angio neck with con CLINICAL HISTORY: dizziness, h/o cva. COMPARISON STUDY: 07/21/2024 TECHNIQUE: Following the IV administration of 112 of Optiray, CT angiogram of the neck was performed from the aortic arch to the skull base. Images are reviewed in the axial, sagittal, and coronal plane s. 3-D MIPS images are created and assessed. IV contrast was administered without complication. All m easurements were calculated based on NASCET criteria. A dose lowering technique was utilized adherin g to the principles of ALARA. CT DOSE: 1225 FINDINGS: There are scattered atherosclerotic calcifications. Interval stent extending from the dista l right common carotid artery to the proximal right internal carotid artery demonstrates mild narrowi ng through the carotid bulb, otherwise widely patent. There is stable mild focal narrowing distally a t the left ICA at the C3 level. Otherwise no significant narrowing or occlusion seen at the common or internal carotid arteries bilaterally. The left vertebral artery is dominant and widely patent. The right vertebral artery is extremely diminutive and terminates in PICA, stable. IMPRESSION: No significant arterial narrowing or occlusion seen on CTA of the neck. Otherwise as desc ribed. ACT 112: Negative or not required by law. The above report was generated using voice recognition software. It may contain grammatical, syntax o r spelling errors. Electronically signed by: Surya Mejia M.D. 11/27/2024 10:28 AM
[2024-11-27 10:32] LABS: Hypochromasia Present; Ovalocytes 1+; Polychromasia 1+
[2024-11-27 10:35] LABS: Troponin I High Sensitivity 5.2 pg/ml (0-20)
[2024-11-27 10:36] LABS: INR 1.1 (0.9-1.1); Prothrombin Time 11.9 Seconds (9.0-12.0)
[2024-11-27 10:38] LABS: Appearance Urine Clear (Clear); Bilirubin Urine Negative (Negative); Blood Urine Negative (Negative); Color Urine Yellow; Glucose Urine UA Trace (Negative); Ketones Urine 1+ (Negative); Leukocyte Esterase Urine Negative (Negative); Nitrite Urine Negative (Negative); Protein Urine Negative (Negative); Specific Gravity Urine 1.029 (1.000-1.030); Urobilinogen Urine Negative (Negative)
[2024-11-27 10:43] LABS: Thyroid Stimulating Hormone 2.804 uIu/ml (0.300-4.500)
--- OUTSIDE RECORDS SUMMARY | 2024-11-27 10:51 | External Medical Summary | Continuity of Care Document ---
Author Name Unknown Organization [address] Address [address] [place], [place] [address] [place], [place] [id number] Care Team Providers Care Section Chief Name Role Phone Estelle Guzmán Primary Care Physician [phone] [phone] Encounter [facility] [id number] Date(s): 11/01/24 - 11/01/[address] [facility] [address] [facility], [address] [place] [address] [place] [phone] Encounter Diagnosis Major depression, recurrent(Discharge Diagnosis) - 11/01/24 GERD (gastroesophageal reflux disease)(Discharge Diagnosis) - 11/01/24 History of CVA in adulthood(Discharge Diagnosis) - 11/01/24 Discharge Disposition: Home or Self Care Attending Physician: MD Guzmán Ravishankar E Referring Physician: MD Guzmán Ravishankar E Allergies, Adverse Reactions, Alerts No Known Allergies Assessment and Plan Extracted from: Title:Office Visit Note Author:MD Guzmán Ravishan kar E Date:11/01/24 1.Major depression, recurr ent - Continue mirtazepine/lexapro at current dose - In 2-3 weeks after resuming it, if not at goal,will increase remeron to15mg qhs. 2.GERD (gastroesophageal reflux disease) - Continue PPI - Small frequent meals 3.History of CVA in adulthood - PT to eval weakness/fall risk - Contributory to above f/u as scheduled. Time: 30mins 5 - pre-visit chart review 20 - visit, inclusive of history, exam, and discussion of assessment/plan 5 - post-visit documentation/orders/coordination of care Immunizations Given and Recorded Vaccine Date Status Refusal Reason influenza virus vaccine, inactivated 08/28/24 Give n influenza virus vaccine, inactivated 08/25/23 John rded influenza virus vaccine, inactivated 08/09/22 John rded influenza virus vaccine, inactivated 08/19/19 Give n influenza virus vaccine, inactivated 08/16/18 Give n pneumococcal 20-valent conjugate vaccine 07/11/24 Recorded SARS-CoV-2 (COVID-19) mRNA-vacc - [id number] 09/10/23 Recorded pneumococcal 23-valent vaccine 1 10/14/22 Given SARS-CoV-2 [...] EDT Start Date: 01/31/24 Status: Ordered atorvastatin 80 mg oral tablet Start: 10/09/24 9:28:00 AM EST, 1 tab, PO, Daily, Disp# 90 tab, Refills: 3, Pharmacy: [id number] Start Date: 10/09/24 Stop Date: 10/04/25 Status: Ordered clopidogrel 75 mg oral tablet Start: 09/03/24 12:18:00 PM EDT, 1 tab, PO, Daily, Disp# 30 tab, Refills: 0, Pharmacy: [id number] Start Date: 09/03/24 Status: Ordered levothyroxine 25 mcg (0.025 mg) oral tablet Start: 08/09/24 4:04:00 PM EDT, 1 tab, PO, Daily, Disp# 30 tab, Refills: 6, Pharmacy: [id number] Start Date: 08/09/24 Status: Ordered Lexapro 10 mg oral tablet Start: 10/10/24 8:04:00 AM EST, 1 tab, PO, Daily, Disp# 30 tab, Refills: 0, Pharmacy: [id number] Start Date: 10/10/24 Status: Ordered lisinopril 5 mg oral tablet Start: 10/17/24 8:10:00 AM EST, 1 tab, PO, Daily, Disp# 90 tab, Refills: 3, Pharmacy: [id number] Start Date: 10/17/24 Status: Ordered metFORMIN 500 mg oral tablet Start: 07/11/24 8:10:00 AM EDT, 2 tab, PO, bid, Disp# 360 tab, Refills: 3, Pharmacy: [id number] Start Date: 07/11/24 Stop Date: 07/06/25 Status: Ordered omeprazole 20 mg oral delayed release capsule Start: 10/24/24 10:18:00 AM EST, 1 cap, PO, Daily, Disp# 30 cap, Refills: 0, ONE MONTH TREATMENT COURSE, THEN USE FAMOTIDINE NEEDED THEREAFTER, Pharmacy: [id number] Start Date: 10/24/24 Status: Ordered Remeron 15 mg oral tablet Start: 10/09/24 9:26:00 AM EST, 0.5 tab, PO, qhs, Disp# 15 tab, Refills: 3, Pharmacy: [id number] Start Date: 10/09/24 Stop Date: 02/06/25 Status: Ordered triamcinolone 0.1% topical ointment Start: 03/11/24 9:39:00 AM EDT, 1 appl, topical, bid, Disp# 30 g, Refills: 0, apply a thin film to affected area bid x 7 days to treat itching, Pharmacy: [id number] Start Date: 03/11/24 Stop Date: 03/18/24 Status: Ordered Tylenol Start: 01/31/24 2:25:00 PM EDT Start Date: 01/31/24 Status: Ordered verapamil 180 mg/12 hours oral tablet, extended release Start: 02/12/24 1:06:00 PM EDT, See Instructions, Disp# 90 tab, Refills: 3, take 1 tablet by mouth every morning, Pharmacy: [facility][id number] Start Date: 02/12/24 Status: Ordered Mental Status 11/01/24 Barriers to Learning one year None evide nt Mandatory Health Literacy Documentation Yes Health Literacy Communication Barriers N ever Primary Language Amharic Problem List Condition Confirmation Course Effective Dates Status H ealth Status Informant Abnormal weight loss 1 Confirmed 08/28/24 Active Gout of both feet Confirmed Active Bilateral carotid artery stenosis Confirmed Active Idiopathic chronic gout, left ankle and foot, 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 Confirmed Active Gout Confirmed Active History of bladder cancer Confirmed Active Personal history of transient ischemic attack (TIA), and cerebral infarction without residual deficits 2 Confirmed 10/09/24 Active History of hepatitis A Confirmed Active Hypertension Confirmed Active Hypothyroid Confirmed Active Elevated liver function tests Confirmed Active Anorexia 3 Confirmed 08/28/24 Active Other malaise 4 Confirmed 08/28/24 Active Mixed hyperlipidemia Confirmed Active Flatulence 5 Confirmed 10/09/24 Active Proteinuria, unspecified 6 Confirmed 08/28/24 Active Major depression, recurrent Confirmed Active Spinal stenosis of lumbar region Confirmed Active Sprain of right ankle Confirmed Active Suicidal ideations 7 Confirmed 10/09/24 Active 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 1Added per Marketing Analyst Cfuhlb-RW-63/30/24 2Added per Marketing Analyst Bcbhwq-NT-14/30/24 3Added per Marketing Analyst Fmtffl-GQ-55/30/24 4Added per Marketing Analyst Utuqyh-VX-96/30/24 5Added per Marketing Analyst Hnwkyh-BR-49/6/24 6Added per Marketing Analyst Rnmgfi-JC-76/30/24 7Added per Marketing Analyst Bpehxr-YH-89/6/24 Diagnosis Diagnosis Type Effective Dates Health Status inical Service Informant GERD (gastroesophagea l reflux disease) Discharge Diagnosis 11/01/24 Non-Specified Major depression, recurrent Discharge Diagnosis 11/01/24 Non-Specified History of CVA in adulthood Discharge Diagnosis 11/01/24 Non-Specified Procedures Procedure Date Related Diagnosis Body Site Status Carotid artery 07/24/24 Completed Colonoscopy 1 12/26/22 Completed Punch biopsy 08/12/20 [...] renal cysts. Otherwise negative. 5WNL 10 years Vital Signs Most recent to oldest [Reference Range]: 1 Patient Weight 66 kg (11/01/24 1:27 PM) Temperature [36.5-37.9 DegC] 35.8 DegC *LOW* (11/01/24 1:27 PM) Heart Rate 82 bpm (11/01/24 1:27 PM) Blood Pressure 90/60mmHg (11/01/24 1:27 PM) Cuff Pulse Pressure 30 mmHg (11/01/24 1:27 PM) Social History Social History Type Response Tobacco Former smoker, Cigar ettes 1 Smoking Status Never smoked cigaret chichi Sex Male Sex Representation Male (finding) 1Quit 30 to 40 years ago. Smoked approx 1/2 ppd for 15 years. FCM Outpt Note * MD Ramirez, Estelle Poole: PERFORM Event Display: FCM Outpt Note Authored Date: [id number] Chief Complaint Med check. Stomach upset. Still no appetite. PHQ9--27. History of Present Illness Mustapha torres 84yoM here today to f/u major depression. At last visit was continued on lexapro 10mg with augmentation with Remeron 7.5mgQHS with plan to re-check in 1 month (now) to assess progress. PHQ9 remains elevated at 27. This current flare was triggered by a recent CVA which mirrors a prior CVA which had a prolonged depressive episode following. He does not have an established psychiatry relationship. He follows with psychologist. He notes the past week he has been off the remeron inadvertently but has now restarted it. His notes it seems to be helping when he was on it but the patient himself doesn't feel it. No major negative side effects. Ongoing GI discomfort/gas issues. Thinks depression is contributing to appetite/GI issues. Burping/belching as well as more increased flatus noted. At last visit he was prescribed a PPI. He feels somewhat better but not fully resolved. Having gas is primary ongoing issues. No heartburn/indigestion issues. Appetite is still reduced and has some fecal urgency when he does eat. He struggles to eat regularly due to this. j Physical Exam Vitals & Measurements T:35.8C HR:82(Monitored) BP:90/60 SpO2:98% WT:66kg WT:66.000kg(Dosing) PHQ2 Data(Data Documented on:11/01/2024 13:22) Emotional health assessment POSITIVE PHQ-9 Data(Data Documented on:11/01/2024 13:26) PHQ-9 Severity Score:27 Thoughts that you would be better off or of hurting yourself in some way?Nearly every day Depression Risk:Elevated GENERAL APPEARANCE: The patient is alert, oriented and in no acute distress. VITALS: As above. HEENT: Head is normocephalic/atraumatic. CARDIOVASCULAR: +2 radial pulses. LUNGS: Respirations even and unlabored. EXTREMITIES: No cyanosis, clubbing or edema. PSYCH: Appropriate/pleasant affect. No SI/HI. Normal speech, good insight. NEUROLOGICAL: Grossly non-focal exam. SKIN: Warm and dry without any rash. Assessment/Plan 1.Major depression, recurrent - Continue mirtazepine/lexapro at current dose - In 2-3 weeks after resuming it, if not at goal,will increase remeron to15mg qhs. 2.GERD (gastroesophageal reflux disease) - Continue PPI - Small frequent meals 3.History of CVA in adulthood - PT to eval weakness/fall risk - Contributory to above f/u as scheduled. Time: 30mins 5 - pre-visit chart review 20 - visit, inclusive of history, exam, and discussion of assessment/plan 5 - post-visit documentation/orders/coordination of care Problem List/Past Medical History Ongoing Abnormal weight loss Anorexia Bilateral carotid artery stenosis Elevated liver function tests Exostosis of right foot Flatulence Gout Gout of both feet History of bladder cancer History of hepatitis A Hypertension Hypothyroid Idiopathic chronic gout, left ankle and foot, with tophus (tophi) Major depression, recurrent Mixed hyperlipidemia Other malaise Personal history of transient ischemic attack (TIA), and cerebral infarction without residual deficits Proteinuria, unspecified Spinal stenosis of lumbar region Sprain of right ankle Suicidal ideations Type 2 diabetes mellitus with albuminuria Resolved 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 Acute gout Amnesia Chest wall contusion Diarrhea Frequent urination Ganglion cyst of left foot Headache Hematuria Hives Hypertensive disorder Left foot pain Localized swelling of both lower legs Medicare annual wellness visit, subsequent Rash of neck Renal artery stenosis Right ankle pain Procedure/Surgical History Carotid artery| Service Date: 4Colonoscopy| Service Date: 3Punch biopsy|Service Date: 08/12/2020Ankle X-ray| Service Date: 02/24/2018X-ray of Right tibia/fibula| Service Date: 03/05/2017Ultrasound--abdomen| Service Date: 04/10/2015Right Renal Arteriogram without Intervention| Service Date: 07/26/2013Colonoscopy| Service Date: 11/08/2012ladder Cancer Removal| Service Date: chilles tendon repairAppendectomyBiopsy-Bladder tumor Medications acetaminophen(Tylenol) aspirin(aspirin 81 mg oral capsule) atorvastatin(atorvastatin 80 mg oral tablet), 80 mg= 1 tab, PO, Daily, 3 refills clopidogrel(clopidogrel 75 mg oral tablet), 75 mg= 1 tab, PO, Daily escitalopram(Lexapro 10 mg oral tablet), 10 mg= 1 tab, PO, Daily levothyroxine(levothyroxine 25 mcg (0.025 mg) oral tablet), 25 mcg= 1 tab, PO, Daily, 6 refills lisinopril(lisinopril 5 mg oral tablet), 5 mg= 1 tab, PO, Daily, 3 refills metFORMIN(metFORMIN 500 mg oral tablet), 1000 mg= 2 tab, PO, bid, 3 refills mirtazapine(Remeron 15 mg oral tablet), 7.5 mg= 0.5 tab, PO, qhs, 3 refills omeprazole(omeprazole 20 mg oral delayed release capsule), 1 cap, PO, Daily triamcinolone topical(triamcinolone 0.1% topical ointment), 1 appl, topical, bid verapamil(verapamil 180 mg/12 hours oral tablet, extended release), See Instructions, 3 refills Allergies NKA Social History Smoking Status Never [...] Vaccine Date Status influenza virus vaccine, inactivated 08/28/2024 Given pneumococcal 20-valent conjugate vaccine 07/11/2024 Recorded SARS-CoV-2 (COVID-19) mRNA-vacc - [id number] 09/10/2023 Recorded influenza virus vaccine, inactivated 08/25/2023 Recorded pneumococcal [...] due10/14/23and every 1year Due Adult COVID-19 Vaccination due11/01/24Unknown Frequency Adult Social Determinants of Health Screening due11/01/24Unknown Frequency Falls Plan of Care due11/01/24Unknown Frequency Shingles Vaccine due11/01/24One-time only Due In Future Adult Influenza Vaccine not due until05/05/25and every 1year Diabetic Eye Exam not due until05/11/25and every 366day Diabetes Management A1c not due until08/29/25and every 366day Satisfied(in the past 1 year) Satisfied Adult Influenza Vaccine on08/28/24.Satisfied by SWAPNA Black Gillian Body Mass Index on02/26/24.Satisfied by BRAXTON Haynes Angela Depression Follow Up Plan on11/01/24.Satisfied by BRAXTON Haynes Angela Diabetes Management A1c on08/28/24.Satisfied by Contributor_system, [email or web address] Diabetes Nephropathy Management on02/28/24.Satisfied by Contributor_system, [email or web address] Lipid Screening on02/28/24.Satisfied by Contributor_system, [email or web address] Electronic Signature on File Electronically Reviewed/Signed by: Estelle Guzmán MD Author Signature Dt/Tm:11/01/2024 01:56 PM Department of Family Medicine [facility] Patient Care team information Care Team Personnel Name: TRIPP García Lynn 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
--- OUTSIDE RECORDS SUMMARY | 2024-11-27 10:51 | External Medical Summary | Continuity of Care Document ---
Author Name Unknown Organization [facility] [address] [facility] Address [address] [place], [place] [id number] Care Team Providers Care Doughnut Icer Machine Name Role Phone Estelle Guzmán Primary Care Physician [phone] [facility]counter [id number] Date(s): 10/17/24 - 10/17/24 [facility] [address], [address] [place] [address] [phone] Encounter Diagnosis Bilateral carotid artery stenosis(Discharge Diagnosis) - 10/17/24 Discharge Disposition: Home or Self Care Attending Physician: MD Hernandez Eugene J Referring Physician: MD Guzmán Ravishankar E Allergies, Adverse Reactions, Alerts No Known Allergies Assessment and Plan Extracted from: Title:Clinical Document Author:TRIPP García Lynn Date:10/17/24 I OUTPATIENT NOTE Name: TC JORGE Patient Number: [id number] : 1940 Date of Service: 10/17/2024 Chief Complaint: _Status post right TCAR. HPI: _Mr. Cifuentes is an elderly male presents Dr. Hernandez's vascular surgery clinic today for a 2-month follow-up visit regarding his history of carotid stenosis and a right TCAR procedure which was performed due to symptomatic right ICA disease. 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 Patient currently states that his left hand strength has improved somewhat, but has not had much improvement over the last few weeks. They would like to continue further therapy. He is unfortunately suffering from some mild depression, but denies any new symptoms of cerebrovascular insufficiency including restless, unilateral extremity weakness numbness or tingling, difficulty speaking or swallowing, facial droop, sudden onset confusion. His carotid ultrasound performed prior to today's appointment demonstrates a widely patent right carotid stent without evidence of restenosis. Current Home Meds: (Last Updated 10/17 08:10) acetaminophen (Tylenol) aspirin (aspirin 81 mg oral capsule) atorvastatin (atorvastatin 80 mg oral tablet) 80 mg PO Daily clopidogrel (clopidogrel 75 mg oral tablet) 75 mg PO Daily escitalopram (Lexapro 10 mg oral tablet) 10 mg PO Daily levothyroxine (levothyroxine 25 mcg (0.025 mg) oral tablet) 25 mcg PO Daily lisinopril (lisinopril 5 mg oral tablet) 5 mg PO Daily melatonin (melatonin 1 mg oral tablet) as needed at bed time metFORMIN (metFORMIN 500 mg oral tablet) 1,000 mg PO bid mirtazapine (Remeron 15 mg oral tablet) 7.5 mg PO qhs omeprazole (omeprazole 20 mg oral delayed release capsule) 20 mg PO Daily 1 month treatment course, then use famotidine prn thereafter sildenafil (sildenafil 20 mg oral tablet) take 2-5 tabs as directed for ED triamcinolone topical (triamcinolone 0.1% topical ointment) 1 appl topical bid apply a thin film to affected area bid x 7 days to treat itching verapamil (verapamil 180 mg/12 hours oral tablet, extended release) take 1 tablet by mouth every morning Allergies and Sensitivities: NKA Past Medical History: Problems: Major depression, 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 Bilateral carotid artery stenosis Idiopathic chronic gout, left ankle and foot, with tophus (tophi) Exostosis of right foot Gout of both feet Gout Sprain of right ankle Mixed hyperlipidemia Hypertension History of hepatitis A Hypothyroid History of bladder cancer Elevated liver function tests Spinal stenosis of lumbar region Flatulence Suicidal ideations Personal history of transient ischemic attack (TIA), and cerebral infarction without residual deficits Other malaise Anorexia Abnormal weight loss Proteinuria, unspecified OBJECTIVE Vitals: Last Updated 10/17/24 14:56 Date Temp BP Location Pulse RR SpO2 Pain 10/17/24 130/58 Left Arm 73 98 10/09/24 98/60 74 20 98 10/09/24 0 Vital Signs are the last 3 documented. No Orthostatic Data Available Height and Weight: Last Updated 10/09/24 09:07 Date BMI Wt(kg) Wt(lb) Method Ht(cm) (ft-in) Method 10/09/24 66 145 Standing Scale 08/28/24 66 145 Standing Scale 08/05/24 69 152 Standing Scale Heights and Weights are the last 3 documented. Physical Exam Constitutional: In general patient is a healthy-appearing well-nourished well-developed elderly male no distress. Is alert and oriented with any focal deficits aside from some mild left hand weakness. His carotids do not demonstrate a bruit. His right supraclavicular incision is well-healed. ASSESSMENT: _ PLAN: _ 1 ) _status post right TCAR Patient is overall doing well after his recent procedure. We did encourage him to talk with his primary care provider and or his psychiatrist regarding his depression. We once again reiterated with the patient that he is to remain on his DAPT indefinitely. We will have the patient return here in 6 months with a new carotid ultrasound prior to that office visit. Patient was advised to call any questions or concerns. His was present today. Thank you for letting us participate in the care of this patient. Immunizations Given and Recorded Vaccine Date Status Refusal Reason influenza virus vaccine, inactivated 08/28/24 Give n influenza virus vaccine, inactivated 08/25/23 John rded influenza virus vaccine, inactivated 08/09/22 John rded influenza virus vaccine, inactivated 08/19/19 Give n influenza virus vaccine, inactivated 08/16/18 Give n pneumococcal 20-valent conjugate vaccine 07/11/24 Recorded SARS-CoV-2 (COVID-19) mRNA-vacc - [id number] 09/10/23 Recorded pneumococcal 23-valent vaccine 1 10/14/22 [...] Daily, Disp# 90 tab, Refills: 3, Pharmacy: [id number] Start Date: 10/09/24 Stop Date: 10/04/25 Status: Ordered clopidogrel 75 mg oral tablet Start: 09/03/24 12:18:00 PM EDT, 1 tab, PO, Daily, Disp# 30 tab, Refills: 0, Pharmacy: [id number] Start Date: 09/03/24 Status: Ordered levothyroxine 25 mcg (0.025 mg) oral tablet Start: 08/09/24 4:04:00 PM EDT, 1 tab, PO, Daily, Disp# 30 tab, Refills: 6, Pharmacy: [facility] Start Date: 08/09/24 Status: Ordered Lexapro 10 mg oral tablet Start: 10/10/24 8:04:00 AM EST, 1 tab, PO, Daily, Disp# 30 tab, Refills: 0, Pharmacy: [facility] Start Date: 10/10/24 Status: Ordered lisinopril 5 mg oral tablet Start: 10/17/24 8:10:00 AM EST, 1 tab, PO, Daily, Disp# 90 tab, Refills: 3, Pharmacy: [facility] Start Date: 10/17/24 Status: Ordered melatonin 1 mg oral tablet Start: 08/05/24 12:52:00 PM EDT, 3 tabs, as needed at bed time Start Date: 08/05/24 Status: Ordered metFORMIN 500 mg oral tablet Start: 07/11/24 8:10:00 AM EDT, 2 tab, PO, bid, Disp# 360 tab, Refills: 3, Pharmacy: [id number] Start Date: 07/11/24 Stop Date: 07/06/25 Status: Ordered omeprazole 20 mg oral delayed release capsule Start: 10/09/24 9:27:00 AM EST, 1 cap, PO, Daily, Disp# 30 cap, Refills: 0, 1 month treatment course, then use famotidine prn thereafter, Pharmacy: [id number] Start Date: 10/09/24 Stop Date: 11/08/24 Status: Ordered Remeron 15 mg oral tablet Start: 10/09/24 9:26:00 AM EST, 0.5 tab, PO, qhs, Disp# 15 tab, Refills: 3, Pharmacy: [id number] Start Date: 10/09/24 Stop Date: 02/06/25 Status: Ordered sildenafil 20 mg oral tablet Start: 03/11/24 9:37:00 AM EDT, See Instructions, Disp# 30 tab, Refills: 11, take 2-5 tabs as directed for ED, Note to Pharmacy: Use [employer] Voucher, given to pt, Pharmacy: [facility] Start Date: 03/11/24 Status: Ordered triamcinolone 0.1% topical ointment Start: 03/11/24 9:39:00 AM EDT, 1 appl, topical, bid, Disp# 30 g, Refills: 0, apply a thin film to affected area bid x 7 days to treat itching, Pharmacy: [id number] Start Date: 03/11/24 Stop Date: 03/18/24 Status: Ordered Tylenol Start: 01/31/24 2:25:00 PM EDT Start Date: 01/31/24 Status: Ordered verapamil 180 mg/12 hours oral tablet, extended release Start: 02/12/24 1:06:00 PM EDT, See Instructions, Disp# 90 tab, Refills: 3, take 1 tablet by mouth every morning, Pharmacy: [facility] #[id number] Start Date: 02/12/24 Status: Ordered Problem List [...] mellitus with albuminuria Confirmed Active 1Added per [employer] Uykhiq-GW-80/30/24 2Added per [employer] Ffjuiz-YS-00/30/24 3Added per [employer] Xuglph-NH-07/30/24 4Added per [employer] Jllrpc-NG-69/30/24 5Added per [employer] Clvwth-SQ-71/6/24 6Added per [employer] Bwjfmv-PD-27/30/24 7Added per [employer] [id number]-UO-83/6/24 Diagnosis Diagnosis Type Effective Dates Health Status Cl inical Service Informant Bilateral carotid artery stenosis Discharge Diagnosis 10/17/24 Procedures Procedure Date Related Diagnosis Body Site [...] renal cysts. Otherwise negative. 5WNL 10 years 65/21/15 Vital Signs Most recent to oldest [Reference Range]: 1 Heart Rate 73 bpm (10/17/24 2:56 PM) Blood Pressure 130/58mmHg (10/17/24 2:56 PM) Cuff Pulse Pressure 72 mmHg (10/17/24 2:56 PM) BP Location # 1 Left Arm (10/17/24 2:56 PM) Social History Social History Type Response Tobacco Former smoker, Cigar ettes 1 Smoking Status Never smoked cigaret chichi Sex Male Sex Representation Male (finding) 1Quit 30 to 40 years ago. Smoked approx 1/2 ppd for 15 years. [facility] Outpt Note * TRIPP García, Lori: PERFORM Event Display: [facility] Outpt Note Authored Date: [id number] [facility] OUTPATIENT NOTE Name: TC JORGE Patient Number: [id number] : 1940 Date of Service: 10/17/2024 Chief Complaint: _Status post right TCAR. HPI: _Mr. Cifuentes is an elderly male presents Dr. Hernandez's vascular surgery clinic today for a 2-month follow-up visit regarding his history of carotid stenosis and a right TCAR procedure which was performed due to symptomatic right ICA disease. 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 Patient currently states that his left hand strength has improved somewhat, but has not had much improvement over the last few weeks. They would like to continuefurther therapy. He is unfortunately suffering from some mild depression, but denies any new symptoms of cerebrovascular insufficiency including restless, unilateral extremity weakness numbness or tin gling, difficulty speaking or swallowing, facial droop, sudden onset confusion. His carotid ultrasound performed prior to today's appointment demonstrates a widely patent right carotid stent without evidence of restenosis. Current Home Meds: (Last Updated 10/17 08:10) acetaminophen (Tylenol) aspirin (aspirin 81 mg oral capsule) atorvastatin (atorvastatin 80 mg oral tablet) 80 mg PO Daily clopidogrel (clopidogrel 75 mg oral tablet) 75 mg PO Daily escitalopram (Lexapro 10 mg oral tablet) 10 mg PO Daily levothyroxine (levothyroxine 25 mcg (0.025 mg) oral tablet) 25 mcg PO Daily lisinopril (lisinopril 5 mg oral tablet) 5 mg PO Daily melatonin (melatonin 1 mg oral tablet) as needed at bed time metFORMIN (metFORMIN 500 mg oral tablet) 1,000 mg PO bid mirtazapine (Remeron 15 mg oral tablet) 7.5 mg PO qhs omeprazole (omeprazole 20 mg oral delayed release capsule) 20 mg PO Daily 1 month treatment course,then use famotidine prn thereafter sildenafil (sildenafil 20 mg oral tablet) take 2-5 tabs as directed for ED triamcinolone topical (triamcinolone 0.1% topical ointment) 1 appl topical bid apply a thin film toaffected area bid x 7 days to treat itching verapamil (verapamil 180 mg/12 hours oral tablet, extended release) take 1 tablet by mouth every morning Allergies and Sensitivities: NKA Past Medical History: Problems: Major depression, 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 Bilateral carotid artery stenosis Idiopathic chronic gout, left ankle and foot, with tophus (tophi) Exostosis of right foot Gout of both feet Gout Sprain of right ankle Mixed hyperlipidemia Hypertension History of hepatitis A Hypothyroid History of bladder cancer Elevated liver function tests Spinal stenosis of lumbar region Flatulence Suicidal ideations Personal history of transient ischemic attack (TIA), and cerebral infarction without residual deficits Other malaise Anorexia Abnormal weight loss Proteinuria, unspecified OBJECTIVE Vitals: Last Updated 10/17/24 14:56 Date Temp BP Location Pulse RR SpO2 Pain 10/17/24 130/58 Left Arm 73 98 10/09/24 98/60 74 20 98 10/09/24 0 Vital Signs are the last 3 documented. No Orthostatic Data Available Height and Weight: Last Updated 10/09/24 09:07 Date BMI Wt(kg) Wt(lb) Method Ht(cm) (ft-in) Method 10/09/24 66 145 Standing Scale 08/28/24 66 145 Standing Scale 08/05/24 69 152 Standing Scale Heights and Weights are the last 3 documented. Physical Exam Constitutional: In general patient is a healthy-appearing well-nourished well- developed elderly male no distress. Is alert and oriented with any focal deficits aside from some mild left hand weakness. His carotids do not demonstrate a bruit. His right supraclavicular incision is well-healed. ASSESSMENT: _ PLAN: _ 1 ) _status post right TCAR Patient is overall doing well after his recent procedure. We did encourage him to talk with his primary care provider and or his psychiatrist regarding his depression. We once again reiterated with the patient that he is to remain on his DAPT indefinitely. We will have the patient return here in 6 months with a new carotid ultrasound prior to that office visit. Patient was advised to call any questions or concerns. His was present today. Thank you for letting us participate in the care of this patient. Electronic Signature on File CC: Estelle Guzmán MD [address] [place] [id number] Electronically Reviewed/Signed by: Lori García PA-C Author Signature Dt/Tm:10/17/2024 04:26 PM [facility] [address] LM Patient Care team information Care Team Personnel Name: TRIPP García Lynn Position: Physician Burner Hand Exempt - Vasc Surg Member Role: Lifetime Relationship Address: [address] [place] [id number] [place] Name: MD Guzmán Ravishankar E Position: Physician Member Role: Primary Care Provider Address: [address] [place] [id number] [place] Care Team Related Persons Name: ARELI JORGE
--- OUTSIDE RECORDS SUMMARY | 2024-11-27 10:52 | External Medical Summary | Continuity of Care Document ---
Author Name Unknown Organization [facility] [address] [facility] Address [address], [place] [id number] Care Team Providers Care Technology Support Analyst Name Role Phone Estelle Guzmán Primary Care Physician [phone] Encounter PSYCHIATRIC HERO [id number] Date(s): 08/08/24 - 08/08/24 [facility] [address], [address] [place] [address] [phone] Encounter Diagnosis Bilateral carotid artery stenosis(Discharge Diagnosis) - 08/08/24 Discharge Disposition: Home or Self Care Attending Physician: TRIPP García Lynn Allergies, Adverse Reactions, Alerts No Known Allergies Assessment and Plan Extracted from: Title:Clinical Document Author:TRIPP García Lynn Date:08/08/24 I OUTPATIENT NOTE Name: TC JORGE Patient Number: [id number] : 1940 Date of Service: 08/08/2024 Chief Complaint: _Follow-up after right TCAR HPI: _ Mr Jorge is an elderly male who presents to Dr. Hernandez's vascular surgery clinic today for to follow-up visit after undergoing uncomplicated right TCAR. The procedure was necessary due to severe right ICA stenosis and a right hemispheric CVA. Patient states that his left arm strength is beginning to return. He denies any concerns related to his left groin puncture or his right supraclavicular incision. He has no new concerning symptoms of stroke at this time. He remains on his medications without problems. Emotional Assessment (PHQ-2) (Data Documented on:08/05/2024 12:54) [place] down or depressed over last 2 weeks? 3 - Nearly every day Little interest in doing things? 3 - Nearly every day PHQ-2 Score: 6 - Emotional health assessment POSITIVE Current Home Meds: (Last Updated 08/08 16:34) acetaminophen (Tylenol) aspirin (aspirin 81 mg oral capsule) atorvastatin (atorvastatin 80 mg oral tablet) 80 mg PO Daily clopidogrel (clopidogrel 75 mg oral tablet) 75 mg PO Daily colchicine (colchicine 0.6 mg oral tablet) 0.6 mg PO bid escitalopram (Lexapro 10 mg oral tablet) 10 mg PO Daily levothyroxine (levothyroxine 25 mcg (0.025 mg) oral tablet) take 1 tablet by mouth every morning ON AN EMPTY STOMACH lisinopril (lisinopril 5 mg oral tablet) 5 mg PO Daily melatonin (melatonin 1 mg oral tablet) as needed at bed time metFORMIN (metFORMIN 500 mg oral tablet) 1,000 mg PO bid sildenafil (sildenafil 20 mg oral tablet) take 2-5 tabs as directed for ED triamcinolone topical (triamcinolone 0.1% topical ointment) 1 appl topical bid apply a thin film to affected area bid x 7 days to treat itching verapamil (verapamil 180 mg/12 hours oral tablet, extended release) take 1 tablet by mouth every morning Allergies and Sensitivities: NKA Past Medical History: Problems: Bilateral carotid artery stenosis 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 No Orthostatic Data Available Height and Weight: Last Updated 08/05/24 13:05 Date BMI Wt(kg) Wt(lb) Method Ht(cm) (ft-in) Method 08/05/24 69 152 Standing Scale 07/15/24 73 161 Standing Scale 03/11/24 72.8 160 Standing Scale Heights and Weights are the last 3 documented. Physical Exam _Constitutional: In general patient is a healthy-appearing well-nourished well-developed elderly male no distress. He is alert and oriented with any focal deficits, besides his left arm and hand 3 out of 5 strength. His right supraclavicular incision is well-healed. There is no erythema ecchymosis tenderness or discharge. His left groin puncture site is also well-healed. ASSESSMENT: _ PLAN: _ 1 ) _status post right TCAR Patient is overall doing well since his recent procedure. He feels he is struggling with some depression, but has began taking an antidepressant and is going to be seeing a counselor in a few days. He has no new concerning stroke symptoms. He is continue to recover from his previous CVA. We will see him back here in about 6 to 8 weeks for reevaluation with a carotid ultrasound prior to that visit. Patient is agreeable to this plan. He will call any other questions. Thank you for letting us participate in [...] Ordered atorvastatin 80 mg oral tablet Start: 07/15/24 1:43:00 PM EDT, 1 tab, PO, Daily, Disp# 90 tab, Refills: 3, Pharmacy: [id number] Start Date: 07/15/24 Stop Date: 07/10/25 Status: Ordered clopidogrel 75 mg oral tablet Start: 07/15/24 12:52:00 PM EDT, 1 tab, PO, Daily Start Date: 07/15/24 Status: Ordered colchicine 0.6 mg oral tablet Start: 01/29/24 4:12:00 PM EDT, 1 tab, PO, bid, Disp# 60 tab, Refills: 0, [id number] Start Date: 01/29/24 Stop Date: 02/28/24 Status: Ordered levothyroxine 25 mcg (0.025 mg) oral tablet Start: 08/09/24 4:04:00 PM EDT, 1 tab, PO, Daily, Disp# 30 tab, Refills: 6, Pharmacy: [id number] Start Date: 08/09/24 Status: Ordered Lexapro 10 mg oral tablet Start: 08/05/24 1:44:00 PM EDT, 1 tab, PO, Daily, Disp# 30 tab, Pharmacy: [id number] Start Date: 08/05/24 Stop Date: 09/04/24 Status: Ordered lisinopril 5 mg oral tablet Start: 08/05/24 12:46:00 PM EDT, 1 tab, PO, Daily Start Date: 08/05/24 Status: Ordered melatonin 1 mg oral tablet Start: 08/05/24 12:52:00 PM EDT, 3 tabs, as needed at bed time Start Date: 08/05/24 Status: Ordered metFORMIN 500 mg oral tablet Start: 07/11/24 8:10:00 AM EDT, 2 tab, PO, bid, Disp# 360 tab, Refills: 3, Pharmacy: [id number] Start Date: 07/11/24 Stop Date: 07/06/25 Status: Ordered sildenafil 20 mg oral tablet Start: 03/11/24 9:37:00 AM EDT, See Instructions, Disp# 30 tab, Refills: 11, take 2-5 tabs as directed for ED, Note to Pharmacy: Use [employer] Voucher, given to pt, Pharmacy: [id number] Start Date: 03/11/24 Status: Ordered triamcinolone 0.1% topical ointment Start: 03/11/24 9:39:00 AM EDT, 1 appl, topical, bid, Disp# 30 g, Refills: 0, apply a thin film to affected area bid x 7 days to treat itching, Pharmacy: [id number] Start Date: 03/11/24 Stop Date: 03/18/24 Status: Ordered Tylenol Start: 01/31/24 2:25:00 PM EDT Start Date: 01/31/24 Status: Ordered verapamil 180 mg/12 hours oral tablet, extended release Start: 02/12/24 1:06:00 PM EDT, See Instructions, Disp# 90 tab, Refills: 3, take 1 tablet by mouth every morning, [id number] Start Date: 02/12/24 Status: Ordered Mental Status 08/08/24 Barriers to Learning one year None evide nt Mandatory Health Literacy Documentation Yes Health Literacy Communication Barriers N ever Primary Language Frisian Problem List Condition Confirmation Course Effective Dates Status H ealth Status Informant Gout of both feet Confirmed Active Bilateral carotid artery stenosis Confirmed Active 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 Smoked approx 1/2 ppd for 15 years. [facility] Outpt Note * TRIPP García Lynn: PERFORM Event Display: [facility] Outpt Note Authored Date: [id number] [facility] OUTPATIENT NOTE Name: TC JORGE Patient Number: [id number] : 1940 Date of Service: 08/08/2024 Chief Complaint: _Follow-up after right TCAR HPI: _ Mr Jorge is an elderly male who presents to Dr. Hernandez's vascular surgery clinic today for to follow-up visit after undergoing uncomplicated right TCAR. The procedure was necessary due to severe right ICA stenosis and a right hemispheric CVA. Patient states that his left arm strength is beginning to return. He denies any concerns related to his left groin puncture or his right supraclavicular incision. He has no new concerning symptoms of stroke at this time. He remains on his medications without problems. Emotional Assessment (PHQ-2) (Data Documented on:08/05/2024 12:54) [place] down or depressed over last 2 weeks? 3 - Nearly every day Little interest in doing things? 3 - Nearly every day PHQ-2 Score: 6 - Emotional health assessment POSITIVE Current Home Meds: (Last Updated 08/08 16:34) acetaminophen (Tylenol) aspirin (aspirin 81 mg oral capsule) atorvastatin (atorvastatin 80 mg oral tablet) 80 mg PO Daily clopidogrel (clopidogrel 75 mg oral tablet) 75 mg PO Daily colchicine (colchicine 0.6 mg oral tablet) 0.6 mg PO bid escitalopram (Lexapro 10 mg oral tablet) 10 mg PO Daily levothyroxine (levothyroxine 25 mcg (0.025 mg) oral tablet) take 1 tablet by mouth every morning [employer] EMPTY STOMACH lisinopril (lisinopril 5 mg oral tablet) 5 mg PO Daily melatonin (melatonin 1 mg oral tablet) as needed at bed time metFORMIN (metFORMIN 500 mg oral tablet) 1,000 mg PO bid sildenafil (sildenafil 20 mg oral tablet) take 2-5 tabs as directed for ED triamcinolone topical (triamcinolone 0.1% topical ointment) 1 appl topical bid apply a thin film toaffected area bid x 7 days to treat itching verapamil (verapamil 180 mg/12 hours oral tablet, extended release) take 1 tablet by mouth every morning Allergies and Sensitivities: NKA Past Medical History: Problems: Bilateral carotid artery stenosis 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 No Orthostatic Data Available Height and Weight: Last Updated 08/05/24 13:05 Date BMI Wt(kg) Wt(lb) Method Ht(cm) (ft-in) Method 08/05/24 69 152 Standing Scale 07/15/24 73 161 Standing Scale 03/11/24 72.8 160 Standing Scale Heights and Weights are the last 3 documented. Physical Exam _Constitutional: In general patient is a healthy-appearing well-nourished well- developed elderly male no distress. He is alert and oriented with any focal deficits, besides his left arm and hand 3 out of 5 strength. His right supraclavicular incision is well-healed. There is no erythema ecchymosis t enderness or discharge. His left groin puncture site is also well-healed. ASSESSMENT: _ PLAN: _ 1 ) _status post right TCAR Patient is overall doing well since his recent procedure. He feels he is struggling with some depression, but has began taking an antidepressant and is going to be seeing a counselor in a few days. He has no new concerning stroke symptoms. He is continue to recover from his previous CVA. We will see him back here in about 6 to 8 weeks for reevaluation with a carotid ultrasound prior to that visit. Patient is agreeable to this plan. He will call any other questions. Thank you for letting us participate in the care of this patient. Electronic Signature on File CC: Estelle Guzmán MD [address] [place] [id number] Electronically Reviewed/Signed by: Lori García PA-C Author Signature Dt/Tm:08/08/2024 04:49 PM [facility] [place]-[address] [address] LM Patient Care team information Care Team Personnel Name: TRIPP García Lynn Position: Physician Mall Plant Caretaker Exempt - Vasc Surg Member Role: Lifetime Relationship Address: [address] [place] [address] [place] Name: MD Guzmán Ravishankar E Position: Physician Member Role: Primary Care Provider Address: [address] [place] [address] [place] Care Team Related Persons Name: ARELI JORGE
--- OUTSIDE RECORDS SUMMARY | 2024-11-27 10:52 | External Medical Summary | Continuity of Care Document ---
Author Name Unknown Organization [facility] [address] [place] [place] [id number] Care Team Providers Care Yarn Worker Name Role Phone RamirezMartinkevan Zulema Primary Care Physician [phone] Encounter [facility] [id number] Date(s): 07/23/24 - 07/23/24 [facility] [address] [facility] [address] [facility] [address] [place], [place] [phone] Encounter Diagnosis Occlusion and stenosis of bilateral carotid arteries(Final) - Discharge Disposition: Home or Self Care Attending Physician: TRIPP García Lynn Referring Physician: TRIPP García Lynn Allergies, Adverse Reactions, [...] (Tdap) 5 05/05/17 Recorded diphtheria/pertussis, whole cell/tetanus 05/05/17 Recorded 1Result Comment: david abebe cma [...] Daily, Disp# 90 tab, Refills: 3, Pharmacy: [facility][id number] Start Date: 07/15/24 Stop Date: 07/10/25 Status: Ordered clopidogrel 75 mg oral tablet Start: 07/15/24 12:52:00 PM EDT, 1 tab, PO, Daily Start Date: 07/15/24 Status: Ordered colchicine 0.6 mg oral tablet Start: 01/29/24 4:12:00 PM EDT, 1 tab, PO, bid, Disp# 60 tab, Refills: 0, Pharmacy: [facility] #[id number] Start Date: 01/29/24 Stop Date: 02/28/24 Status: Ordered levothyroxine 25 mcg (0.025 mg) oral tablet Start: 07/25/24 1:42:00 PM EDT, See Instructions, Disp# 60 tab, Refills: 0, take 1 tablet by mouth every morning ON AN EMPTY STOMACH, Pharmacy: [facility][id number] Start Date: 07/25/24 Status: Ordered metFORMIN 500 mg oral tablet Start: 07/11/24 8:10:00 AM EDT, 2 tab, PO, bid, Disp# 360 tab, Refills: 3, Pharmacy: [facility][id number] Start Date: 07/11/24 Stop Date: 07/06/25 Status: Ordered sildenafil 20 mg oral tablet Start: 03/11/24 9:37:00 AM EDT, See Instructions, Disp# 30 tab, Refills: 11, take 2-5 tabs as directed for ED, Note to Pharmacy: Use [employer] Voucher, given to pt, Pharmacy: [facility][id number] Start Date: 03/11/24 Status: Ordered triamcinolone 0.1% topical ointment Start: 03/11/24 9:39:00 AM EDT, 1 appl, topical, bid, Disp# 30 g, Refills: 0, apply a thin film to affected area bid x 7 days to treat itching, Pharmacy: [facility][id number] Start Date: 03/11/24 Stop Date: 03/18/24 Status: Ordered Tylenol Start: 01/31/24 2:25:00 PM EDT Start Date: 01/31/24 Status: Ordered verapamil 180 mg/12 hours oral tablet, extended release Start: 02/12/24 1:06:00 PM EDT, See Instructions, Disp# 90 tab, Refills: 3, take 1 tablet by mouth every morning, Pharmacy: [facility] #[id number] Start Date: 02/12/24 Status: Ordered Problem List Condition Confirmation Course Effective Dates Status H ealth Status Informant Gout of both feet Confirmed Active Acute cerebrovascular accident (CVA) due [...] cysts. Otherwise negative. 5WNL 10 years 65//15 Results Laboratory List Name Date Platelet Function (P2Y12 Receptor) (PLT FUNCTION P2Y12) 07/23/24 Most recent to oldest [Reference Range]: 1 P2Y12 Platelet Function [194-418 PRU] 13 4 PRU 1 *LOW* (07/23/24 10:25 AM) 1Result Comment: PRU reference range is 194-418 (healthy adults, no drug treatment). Post Drug Results: Lower PRU levels are expected following treatment with antiplatelet drugs. Post-treatment values are usually below the stated reference range above. The post-drug PRU values reported in the [employer] P2Y12 package insert are 18-435. This broader range reflects the variability in drug response and is consistent with significant numbers of patients with decreased sensitivity to P2Y12 receptor antagonists (prasugrel or clopidogrel). Clinical studies suggest an on-treatment PRU>230 indicates less than optimal response to therapy, and PRU<208 at 12-24 hours after percutaneous intervention or during follow-up is associated with a lower risk of cardiovascular events (1). (1).Standard-vs high-dose clopidogrel based on platelet function testing after percutaneouscoronary intervention: the GRAVITAS randomized trial. Arley et al. PRASHANT. 2010January 19; 305(11): 8301-6360. doi: 10.1001/prashant.2011.290 Social History Social History Type Response Tobacco Former smoker, Cigar ettes 1 Smoking Status Never smoked cigaret chichi Sex Male Sex Representation Male (finding) 1Quit 30 to 40 years ago. Smoked approx 1/2 ppd for 15 years. Patient Care team information Care Team Personnel Name: TRIPP García Lynn Position: Physician Last Ironer Exempt - Vasc Surg Member Role: Lifetime Relationship Address: [address] [place] [id number] [place] Name: MD Ramirez, Estelle Poole Position: Physician Member Role: Primary Care Provider Address: [address] [place] [address] [place] Care Team Related Persons Name: ARELI JORGE
--- OUTSIDE RECORDS SUMMARY | 2024-11-27 10:52 | External Medical Summary | Continuity of Care Document ---
Author Name Unknown Organization [address] Address [address] [place] [address] [place] [id number] Care Team Providers Care Business Line Controller Name Role Phone Estelle Guzmán Primary Care Physician [phone] Encounter [facility] [id number] Date(s): 10/09/24 - 10/09/[address] [facility] [address] [facility], [address] [place] [address] [place] [phone] Encounter Diagnosis Major depression, recurrent(Discharge Diagnosis) - 10/09/24 GERD (gastroesophageal reflux disease)(Discharge Diagnosis) - 10/09/24 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(Discharge Diagnosis) - 10/09/24 Discharge Disposition: Home or Self Care Attending Physician: MD Guzmán Ravishankar E Referring Physician: MD Guzmán Ravishankar E Allergies, Adverse Reactions, Alerts No Known Allergies Assessment and Plan Extracted from: Title:Office Visit Note Author:MD Guzmán Ravishan kar E Date:10/09/24 1.Major depression, recurr ent - Suspect ongoing severe anhedonia - Lexapro 10mg helping per but not sufficiently, discussed increasing vs continuing and augmenting with low dose remeron andelected to go that route - 7.5mg Remeron qhsadded to current regimen - f/u 1 month to re-check 2.GERD (gastroesophageal reflux disease) - Suspect GI issues confounded by acutely worsened reflux - 1 month PPI course prescribed 3.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 - Contributory to above f/u as scheduled. Time: 40mins 5 - pre-visit chart review 30 - visit, inclusive of history, exam, and [...] vaccine 07/11/24 Recorded SARS-CoV-2 (COVID-19) mRNA-vacc - [id number] 09/10/23 Recorded pneumococcal 23-valent vaccine 1 10/14/22 [...] Daily, Disp# 90 tab, Refills: 3, Pharmacy: [id number] Start Date: 10/09/24 Stop Date: 10/04/25 Status: Ordered clopidogrel 75 mg oral tablet Start: 09/03/24 12:18:00 PM EDT, 1 tab, PO, Daily, Disp# 30 tab, Refills: 0, Pharmacy: [id number] Start Date: 09/03/24 Status: Ordered levothyroxine 25 mcg (0.025 mg) oral tablet Start: 08/09/24 4:04:00 PM EDT, 1 tab, PO, Daily, Disp# 30 tab, Refills: 6, Pharmacy: [id number] Start Date: 08/09/24 Status: Ordered Lexapro 10 mg oral tablet Start: 10/10/24 8:04:00 AM EST, 1 tab, PO, Daily, Disp# 30 tab, Refills: 0, Pharmacy: [id number] Start Date: 10/10/24 Status: Ordered lisinopril 5 mg oral tablet Start: 10/09/24 10:26:00 AM EST, 1 tab, PO, Daily, Disp# 90 tab, Refills: 0, Pharmacy: [facility] Start Date: 10/09/24 Status: Ordered melatonin 1 mg oral tablet Start: 08/05/24 12:52:00 PM EDT, 3 tabs, as needed at bed time Start Date: 08/05/24 Status: Ordered metFORMIN 500 mg oral tablet Start: 07/11/24 8:10:00 AM EDT, 2 tab, PO, bid, Disp# 360 tab, Refills: 3, Pharmacy: [facility] Start Date: 07/11/24 Stop Date: 07/06/25 Status: Ordered omeprazole 20 mg oral delayed release capsule Start: 10/09/24 9:27:00 AM EST, 1 cap, PO, Daily, Disp# 30 cap, Refills: 0, 1 month treatment course, then use famotidine prn thereafter, Pharmacy: [facility] Start Date: 10/09/24 Stop Date: 11/08/24 Status: Ordered Remeron 15 mg oral tablet Start: 10/09/24 9:26:00 AM EST, 0.5 tab, PO, qhs, Disp# 15 tab, Refills: 3, Pharmacy: [facility] Start Date: 10/09/24 Stop Date: 02/06/25 Status: Ordered sildenafil 20 mg oral tablet Start: 03/11/24 9:37:00 AM EDT, See Instructions, Disp# 30 tab, Refills: 11, take 2-5 tabs as directed for ED, Note to Pharmacy: Use [employer] Voucher, given to pt, Pharmacy: [facility] Start Date: 03/11/24 Status: Ordered triamcinolone 0.1% topical ointment Start: 03/11/24 9:39:00 AM EDT, 1 appl, topical, bid, Disp# 30 g, Refills: 0, apply a thin film to affected area bid x 7 days to treat itching, Pharmacy: [facility] Start Date: 03/11/24 Stop Date: 03/18/24 Status: Ordered Tylenol Start: 01/31/24 2:25:00 PM EDT Start Date: 01/31/24 Status: Ordered verapamil 180 mg/12 hours oral tablet, extended release Start: 02/12/24 1:06:00 PM EDT, See Instructions, Disp# 90 tab, Refills: 3, take 1 tablet by mouth every morning, Pharmacy: [facility] #[id number] Start Date: 02/12/24 Status: Ordered Mental Status 10/09/24 Barriers to Learning one year None evide nt Mandatory Health Literacy Documentation Yes Health Literacy Communication Barriers N ever Primary Language Armenian Problem List Condition Confirmation Course Effective Dates [...] cerebral infarction without residual deficits 2 Confirmed 08/28/24 Active History of hepatitis A Confirmed Active Hypertension Confirmed Active Hypothyroid Confirmed Active Elevated liver function tests Confirmed Active Anorexia 3 Confirmed 08/28/24 Active Other malaise 4 Confirmed 08/28/24 Active Mixed hyperlipidemia Confirmed Active Proteinuria, unspecified 5 Confirmed 08/28/24 Active Major depression, recurrent Confirmed Active Spinal stenosis of lumbar region Confirmed Active Sprain of right ankle Confirmed Active 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 1Added per Instrument Repairer Zdkvxf-VQ-58/30/24 2Added per Instrument Repairer Roxatf-SI-02/30/24 3Added per Instrument Repairer Wzcoam-PR-12/30/24 4Added per Instrument Repairer Chians-AP-93/30/24 5Added per Instrument Repairer Ogsklf-BQ-70/30/24 Diagnosis Diagnosis Type Effective Dates Health Status Clinical Service Informant Major depression, recurrent Discharge Diagnosis 10/09/24 Non-Specified GERD (gastroesophageal reflux disease) Discharge Diagnosis 10/09/24 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 Smoked approx 1/2 ppd for 15 years. FCM Outpt Note * MD Ramirez, Estelle Poole: PERFORM Event Display: FCM Outpt Note Authored Date: [id number] Chief Complaint med check - GI discomfort/gas History of Present Illness Vernon is here today to f/u major depression after recent CVA s/p TCAR procedure. He's continuedwith PT/OT. Diabetes has been well controlled. He notes after starting lexaprowe were to f/u to see if remeron might be a necessary next step if insufficient control of depressive symptoms. He contracts for safety. He does note some GI discomfort/gas ongoing. Not sure if it's medication related or diet. He's not had much of an appetite but weight is stable at 66kg. Notes depression is likely behind his appetite issues. He notes it's been an ongoing issue since the procedure/hospitalization and neverreally went away. He notes burping/belching as well as increased flatus. He does endorse some heartburn and sour taste in the mouth concurrently. Review of Systems 08/19pt ROS reviewed/negative except as noted in HPI. Physical Exam Vitals & Measurements HR:74(Monitored) RR:20 BP:98/60 SpO2:98% WT:66kg WT:66.000kg(Dosing) PHQ2 Data(Data Documented on:10/09/2024 09:03) Emotional health assessment POSITIVE PHQ-9 modified for adolescents not completed GENERAL APPEARANCE: The patient is alert, oriented and in no acute distress. VITALS: As above. HEENT: Head is normocephalic/atraumatic. CARDIOVASCULAR: +2 radial pulses. LUNGS: Respirations even and unlabored. EXTREMITIES: No cyanosis, clubbing or edema. PSYCH: Flat affect, no SI/HI actively, but has had passive ideation. Good insight/normal speech. NEUROLOGICAL: Grossly non-focal exam. SKIN: Warm and dry without any rash Assessment/Plan 1.Major depression, recurrent - Suspect ongoing severe anhedonia - Lexapro 10mg helping per but not sufficiently, discussed increasing vs continuing and augmenting with low dose remeron andelected to go that route - 7.5mg Remeron qhsadded to current regimen - f/u 1 month to re-check 2.GERD (gastroesophageal reflux disease) - Suspect GI issues confounded by acutely worsened reflux - 1 month PPI course prescribed 3.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 - Contributory to above f/u as scheduled. 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 Anorexia Bilateral carotid artery stenosis Elevated liver [...] ankle Type 2 diabetes mellitus with albuminuria Resolved Acute gout Amnesia Chest wall contusion Diarrhea [...] oral tablet), 5 mg= 1 tab, PO, Daily melatonin(melatonin 1 mg oral tablet), 3 tabs metFORMIN(metFORMIN 500 mg oral tablet), 1000 mg= 2 tab, PO, bid, 3 refills mirtazapine(Remeron 15 mg oral tablet), 7.5 mg= 0.5 tab, PO, qhs, 3 refills omeprazole(omeprazole 20 mg oral delayed release capsule), 20 mg= 1 cap, PO, Daily sildenafil(sildenafil 20 mg oral tablet), See Instructions, [...] vaccine 07/11/2024 Recorded SARS-CoV-2 (COVID-19) mRNA-vacc - [id number] 09/10/2023 Recorded influenza virus vaccine, inactivated 08/25/2023 [...] due10/14/23and every 1year Due Adult COVID-19 Vaccination due10/09/24Unknown Frequency Adult Social Determinants of Health Screening due10/09/24Unknown Frequency Falls Plan of Care due10/09/24Unknown Frequency Shingles Vaccine due10/09/24One-time only Due In Future Adult Influenza Vaccine not due until05/05/25and every 1year Diabetic Eye Exam not due until05/11/25and every 366day Diabetes Management A1c not due until08/29/25and every 366day Satisfied(in the past 1 year) Satisfied Adult Influenza Vaccine on08/28/24.Satisfied by SWAPNA Black, Lucy Body Mass Index on02/26/24.Satisfied by BRAXTON Haynes Angela Depression Follow Up Plan on08/05/24.Satisfied by MD Guzmán Ravishankar E Diabetes Management A1c on08/28/24.Satisfied by Contributor_system, [email or web address] Diabetes Nephropathy Management on02/28/24.Satisfied by Contributor_system, [email or web address] Lipid Screening on02/28/24.Satisfied by Contributor_system, [id number] Electronic Signature on File Electronically Reviewed/Signed by: Estelle Guzmán MD Author Signature Dt/Tm:10/09/2024 09:35 AM Department of Family Medicine [facility] Patient Care team information Care Team Personnel Name: TRIPP García Lynn Position: Physician Pipe Stress Engineer Exempt - Vasc Surg Member Role: Lifetime Relationship Address: [address] [place] [phone] [place] Name: MD Guzmán Ravishankar E Position: Physician Member Role: Primary Care Provider Address: [address] [place] [address] [place] Care Team Related Persons Name: ARELI JORGE"
--- OUTSIDE RECORDS SUMMARY | 2024-11-27 10:52 | External Medical Summary | Continuity of Care Document ---
Author Name Unknown Organization [address] Address [address] [place], [place] [id number] Care Team Providers Care Consulting It Architect Name Role Phone Estelle Guzmán Primary Care Physician [phone] [facility] [id number] Date(s): 10/08/24 - 10/08/24 [facility] [address], [address] [place] [address] [phone] Discharge Disposition: Home or Self Care Attending [...] vaccine 07/11/24 Recorded SARS-CoV-2 (COVID-19) mRNA-vacc - [id number] 09/10/23 Recorded pneumococcal 23-valent vaccine 1 10/14/22 Given SARS-CoV-2 mRNA-1273 (6y+ bivalent) 08/09/22 Recor ded SARS-CoV-2 mRNA-1273 (6y+ bivalent) 03/17/22 Recor ded SARS-CoV-2 (COVID-19) mRNA-1273 vaccine 2 09/10/21 Recorded SARS-CoV-2 (COVID-19) mRNA-1273 vaccine 3 01/07/21 Recorded SARS-CoV-2 (COVID-19) mRNA-1273 vaccine 4 2/4/21 Recorded pneumococcal 13-valent vaccine 08/19/19 Given tetanus/diphtheria/pertuss, [...] Daily, Disp# 90 tab, Refills: 3, Pharmacy: [id number] Start Date: 10/09/24 Stop Date: 10/04/25 Status: Ordered clopidogrel 75 mg oral tablet Start: 09/03/24 12:18:00 PM EDT, 1 tab, PO, Daily, Disp# 30 tab, Refills: 0, Pharmacy: [facility] Start Date: 09/03/24 Status: Ordered levothyroxine 25 mcg (0.025 mg) oral tablet Start: 08/09/24 4:04:00 PM EDT, 1 tab, PO, Daily, Disp# 30 tab, Refills: 6, Pharmacy: [facility] Start Date: 08/09/24 Status: Ordered Lexapro 10 mg oral tablet Start: 10/10/24 8:04:00 AM EST, 1 tab, PO, Daily, Disp# 30 tab, Refills: 0, Pharmacy: [facility] Start Date: 10/10/24 Status: Ordered lisinopril 5 mg oral tablet Start: 10/09/24 10:26:00 AM EST, 1 tab, PO, Daily, Disp# 90 tab, Refills: 0, Pharmacy: [facility] Start Date: 10/09/24 Status: Ordered melatonin 1 mg oral tablet Start: 08/05/24 12:52:00 PM EDT, 3 tabs, as needed at bed time Start Date: 08/05/24 Status: Ordered metFORMIN 500 mg oral tablet Start: 07/11/24 8:10:00 AM EDT, 2 tab, PO, bid, Disp# 360 tab, Refills: 3, Pharmacy: [facility] Start Date: 07/11/24 Stop Date: 07/06/25 Status: Ordered omeprazole 20 mg oral delayed release capsule Start: 10/09/24 9:27:00 AM EST, 1 cap, PO, Daily, Disp# 30 cap, Refills: 0, 1 month treatment course, then use famotidine prn thereafter, Pharmacy: [facility] Start Date: 10/09/24 Stop Date: 11/08/24 Status: Ordered Remeron 15 mg oral tablet Start: 10/09/24 9:26:00 AM EST, 0.5 tab, PO, qhs, Disp# 15 tab, Refills: 3, Pharmacy: [facility] Start Date: 10/09/24 Stop Date: 02/06/25 Status: Ordered sildenafil 20 mg oral tablet Start: 03/11/24 9:37:00 AM EDT, See Instructions, Disp# 30 tab, Refills: 11, take 2-5 tabs as directed for ED, Note to Pharmacy: Use [employer] Voucher, given to pt, Pharmacy: [facility] Start Date: 03/11/24 Status: Ordered triamcinolone 0.1% topical ointment Start: 03/11/24 9:39:00 AM EDT, 1 appl, topical, bid, Disp# 30 g, Refills: 0, apply a thin film to affected area bid x 7 days to treat itching, Pharmacy: [facility] Start Date: 03/11/24 Stop Date: 03/18/24 Status: Ordered Tylenol Start: 01/31/24 2:25:00 PM EDT Start Date: 01/31/24 Status: Ordered verapamil 180 mg/12 hours oral tablet, extended release Start: 02/12/24 1:06:00 PM EDT, See Instructions, Disp# 90 tab, Refills: 3, take 1 tablet by mouth every morning, Pharmacy: [facility] #[id number] Start Date: 02/12/24 Status: Ordered Problem List [...] mellitus with albuminuria Confirmed Active 1Added per Crutcher Helper Onkpaa-WS-74/30/24 2Added per Crutcher Helper Frxqvf-NV-10/30/24 3Added per Crutcher Helper Afskkg-VB-16/30/24 4Added per Crutcher Helper Vtycus-VZ-76/30/24 5Added per Crutcher Helper Oqizwg-LH-63/30/24 Procedures Procedure Date Related Diagnosis Body Site [...] Otherwise negative. 5WNL 10 years 65//15 Results Radiology Reports * Exam Date Time Procedure Performing Provider Status 10/08/24 8:21 AM VL Carotid Duplex Unilat/Limited Marry Patiño; Final Notes: (VL Carotid Duplex Unilat/Limited) Reason For Exam: R TCAR VL Carotid Duplex Unilat/Limited [facility] FINAL REPORT Name: TC JORGE : 1940 Visit: [id number] Date: 08 Oct 2024 TYPE OF TEST: Cerebrovascular Duplex REASON FOR TEST Right TCAR INTERPRETATION/FINDINGS Duplex imaging performed of the RIGHT extracranial arteries: 1. Patent right carotid bulb/proximal internal carotid artery stent with no evidence of restenosis. 2. No hemodynamically significant stenosis in the right external carotid artery. 3. Resistant, antegrade flow in the right vertebral artery, suggestive of distal occlusion. 4. Normal flow in the proximal right subclavian artery. No prior exam available for comparison. IMPRESSION/COMMENTS I have personally reviewed the data relevant to the interpretation of this study. TECHNOLOGIST: Marry DAVE, [facility], [facility] PHYSICIAN: Jian Hernandez M.D. Signed: 10/08/2024 11:19 AM Final Dictated by:MD Hernandez Eugene J Dictated DT/TM:10/08/2024 11:19 Signed by:MD Hernandez Eugene J Signed (Electronic Signature):10/08/2024 11:19 Transcribed by:EJS Social History Social History Type Response Tobacco Former smoker, Cigar ettes 1 Smoking Status Never smoked cigaret chichi Sex Male Sex Representation Male (finding) 1Quit 30 to 40 years ago. Smoked approx 1/2 ppd for 15 years. Patient Care team information Care Team Personnel Name: TRIPP García Lynn Position: Physician Applied Behavior Specialist Exempt - Vasc Surg Member Role: Lifetime Relationship Address: [address] [place] [phone] [place] Name: MD Guzmán Ravishankar E Position: Physician Member Role: Primary Care Provider Address: [address] [place] [phone] [place] Care Team Related Persons Name: ARELI JORGE
--- OUTSIDE RECORDS SUMMARY | 2024-11-27 10:52 | External Medical Summary | Continuity of Care Document ---
Author Name Unknown Organization [address] Address [address] [place] [address] AK[place], [place] [id number] Care Team Providers Care Weapons Officer Name Role Phone Estelle Guzmán Primary Care Physician [phone] Encounter [facility] MEGR [id number] Date(s): 08/05/24 - 08/05/[address] [facility] [address] [facility], [address] [place] [address] [phone] Encounter Diagnosis Depression(Discharge Diagnosis) - 08/05/24 H/O transcarotid artery revascularization (TCAR)(Discharge Diagnosis) - 08/05/24 Discharge Disposition: Home or Self Care Attending Physician: MD Guzmán Ravishankar E Referring Physician: MD Guzmán Ravishankar E Allergies, Adverse Reactions, Alerts No Known Allergies Assessment and Plan Extracted from: Title:Office Visit Note Author:DO Phillips Pa ige M Date:08/05/24 1.Depression Acute w/ systemic symptoms or complicated injury Goal: Resolution Data: N/A Plan: Will start Lexapro 10mg and encouraged therapy sessions with psychologist as scheduled. Discussed extensively with patient and his regarding black box warning for anti-depressants and discussed that if either have any acute concerns for his safety they should contact [address] [place] [address] Line. Plan for follow up in 2 weeks or sooner if needed 2.H/O transcarotid artery revascularization (TCAR) Follow up with vascular surgery as scheduled, continue anti-platelet regimen. Immunizations Given and Recorded Vaccine Date Status [...] Daily, Disp# 90 tab, Refills: 3, Pharmacy: [facility] #[id number] Start Date: 07/15/24 Stop Date: 07/10/25 Status: Ordered clopidogrel 75 mg oral tablet Start: 07/15/24 12:52:00 PM EDT, 1 tab, PO, Daily Start Date: 07/15/24 Status: Ordered colchicine 0.6 mg oral tablet Start: 01/29/24 4:12:00 PM EDT, 1 tab, PO, bid, Disp# 60 tab, Refills: 0, Pharmacy: [facility] #[id number] Start Date: 01/29/24 Stop Date: 02/28/24 Status: Ordered levothyroxine 25 mcg (0.025 mg) oral tablet Start: 07/25/24 1:42:00 PM EDT, See Instructions, Disp# 60 tab, Refills: 0, take 1 tablet by mouth every morning ON AN EMPTY STOMACH, Pharmacy: [facility] #[id number] Start Date: 07/25/24 Status: Ordered Lexapro 10 mg oral tablet Start: 08/05/24 1:44:00 PM EDT, 1 tab, PO, Daily, Disp# 30 tab, Pharmacy: [facility] #[id number] Start Date: 08/05/24 Stop Date: [...] bid, Disp# 360 tab, Refills: 3, Pharmacy: [facility] #[id number] Start Date: 07/11/24 Stop Date: 07/06/25 Status: Ordered sildenafil 20 mg oral tablet Start: 03/11/24 9:37:00 AM EDT, See Instructions, Disp# 30 tab, Refills: 11, take 2-5 tabs as directed for ED, Note to Pharmacy: Use [employer] Voucher, given to pt, Pharmacy: [facility] #[id number] Start Date: 03/11/24 Status: Ordered triamcinolone 0.1% topical ointment Start: 03/11/24 9:39:00 AM EDT, 1 appl, topical, bid, Disp# 30 g, Refills: 0, apply a thin film to affected area bid x 7 days to treat itching, Pharmacy: [facility] #[id number] Start Date: 03/11/24 Stop Date: 03/18/24 Status: Ordered Tylenol Start: 01/31/24 2:25:00 PM EDT Start Date: 01/31/24 Status: Ordered verapamil 180 mg/12 hours oral tablet, extended release Start: 02/12/24 1:06:00 PM EDT, See Instructions, Disp# 90 tab, Refills: 3, take 1 tablet by mouth every morning, Pharmacy: [facility] #[id number] Start Date: 02/12/24 Status: Ordered Mental Status 08/05/24 Barriers to Learning one year None evide nt Mandatory Health Literacy Documentation Yes Health Literacy Communication Barriers N ever Primary Language Mongolian Problem List Condition Confirmation Course Effective Dates [...] Effective Dates Health Status Clinical Service Informant Depression Discharge Diagnosis 08/05/24 Non-Specified H/O transcarotid artery revascularization (TCAR) Discharge Diagnosis 08/05/24 Non-Specified Procedures Procedure Date Related Diagnosis Body [...] to oldest [Reference Range]: 1 Patient Weight 69.0 kg (08/05/24 1:05 PM) Temperature [36.5-37.9 DegC] 35.9 DegC *LOW* (08/05/24 1:05 PM) Heart Rate 66 bpm (08/05/24 1:05 PM) Blood Pressure 120/72mmHg (08/05/24 1:05 PM) Cuff Pulse Pressure 48 mmHg (08/05/24 1:05 PM) Social History Social History Type Response Tobacco Former smoker, Cigar ettes 1 Smoking Status Never smoked cigaret chichi Sex Male Sex Representation Male (finding) 1Quit 30 to 40 years ago. Smoked approx 1/2 ppd for 15 years. [facility] Outpt Note * MD Guzmán Ravishankar E: MODIFY MD Guzmán Ravishankar E: MODIFY Event Display: [facility] Outpt Note Authored Date: [id number] Chief Complaint Hospital f/u chest pain. Had stent put in 07/24 carotid. Mentally just doesn't feel like himself. Very worried and depressed. Saw the psychologist. History of Present Illness Erica is a83 year-old male who presents today for follow up from recent hospitalization. He is accompanied but his . -Initially was admitted to [facility] for chest pain after a fall, was diagnosed with "mini-stroke" and set up for TCAR procedure withDr. Hernandez which was completed ~1.5 weeks ago -Since his discharge home from the hospital, he has seemed very depressed. 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 Constantly expresses that he made the "wrong decision" as he did not go to the hospital soon enough for "more effective medicine" to treat his stroke, per patient -Patient recalls that he previously struggled with depression ~10 years ago after having a stroke in [place], patient states that this in now "worse", although notes that he was barely responsive/didn't communicate when he was depressed 10 years ago so this seems somewhat better. Deny that he was treated with antidepressant with last episode, but he was seen by psychologist and meter/relay craftsman at his [facility] for support -Patient endorses thoughts of wanting to every day, but denies a plan. States that he would notdo that because of his . - notes that she has scheduled appointments with Dr. Reese/psychologist tomorrow and several other scheduled sessions but they also recommended he start medication for his depression Physical Exam Vitals & Measurements T:35.9C HR:66(Monitored) BP:120/72 SpO2:98% WT:69.000kg(Dosing) WT:69.0kg PHQ2 Data(Data Documented on:08/05/2024 12:54) Emotional health assessment POSITIVE PHQ-9 modified for adolescents not completed General:Alert and oriented,tearful at times HEENT:Normocephalic,Nl gross hearing, moist oral mucosa Cardiovascular:Normal rate, Regular rhythm, No murmur, No gallop. Respiratory:Lungs are clear to auscultation, Respirations are non-labored, Breath sounds are equal Integumentary:Warm, Dry, [place]. Bandagein placeatleftgroin. Psych:Flat affect. Speech is of normal pace and content Assessment/Plan 1.Depression Acute w/ systemic symptoms or complicated injury Goal: Resolution Data: N/A Plan: Will start Lexapro 10mg and encouraged therapy sessions with psychologist as scheduled. Discussed extensively with patient and his regarding black box warning for anti-depressants and discussed that if either have any acute concerns for his safety they should contact [facility] or [facility] Line. Plan for follow up in 2 weeks or sooner if needed 2.H/O transcarotid artery revascularization (TCAR) Follow up with vascular surgery as scheduled, continue anti-platelet regimen. Attestation ATTENDING PHYSICIAN ATTESTATION: I saw the patient and confirmed walker portions of the history and physical exam and agree with the resident impression and plan as above. Dr. Estelle Guzmán MD Problem List/Past Medical History Ongoing 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 Elevated liver function tests Exostosis of right [...] Service Date: 11/08/2012ladder Cancer Removal| Service Date: 2009Achilles tendon repairAppendectomyBiopsy-Bladder tumor Medications acetaminophen(Tylenol) aspirin(aspirin 81 mg oral capsule) atorvastatin(atorvastatin 80 mg oral tablet), 80 mg= 1 tab, PO, Daily, 3 refills clopidogrel(clopidogrel 75 mg oral tablet), 75 mg= 1 tab, PO, Daily colchicine(colchicine 0.6 mg oral tablet), 0.6 mg= 1 tab, PO, bid escitalopram(Lexapro 10 mg oral tablet), 10 mg= 1 tab, PO, Daily levothyroxine(levothyroxine 25 mcg (0.025 mg) oral tablet), See Instructions lisinopril(lisinopril 5 mg oral tablet), 5 mg= [...] Medicare Annual Wellness Visit due10/14/23and every 1year Adult Influenza Vaccine due05/05/24and every 1year Due Adult COVID-19 Vaccination due08/05/24Unknown Frequency Adult Social Determinants of Health Screening due08/05/24Unknown Frequency Falls Plan of Care due08/05/24Unknown Frequency Shingles Vaccine due08/05/24One-time only Due In Future Diabetes Management A1c not due until02/28/25and every 366day Diabetic Eye Exam not due until05/11/25and every 366day Satisfied(in the past 1 year) Satisfied Adult Influenza Vaccine on08/25/23.Satisfied by SANCHEZ Martell, Amelia Body Mass Index on02/26/24.Satisfied by BRAXTON Haynes Angela Depression Follow Up Plan on08/05/24.Satisfied by MD Ramirez, Estelle Poole Diabetes Management A1c on02/28/24.Satisfied by Contributor_system, [email or web address] Diabetes Nephropathy Management on02/28/24.Satisfied by Contributor_system, [email or web address] Lipid Screening on02/28/24.Satisfied by Contributor_system, [email or web address] Electronic Signature on File Electronically Reviewed/Signed by: Yeimi Phillips Author Signature Dt/Tm:08/05/2024 08:06 PM Resident Department of Family Medicine Electronically Reviewed/Signed by: Estelle Guzmán MD Cosigner Signature Dt/Tm: 08/06/2024 03:25PM Department of Family Medicine PMW Patient Care team information Care Team Personnel Name: TRIPP García Lynn Position: Physician Java Jsf Developer Exempt - Vasc Surg Member Role: Lifetime Relationship Address: [address] [place] [address] [place] Name: MD Ramirez, Estelle Poole Position: Physician Member Role: Primary Care Provider Address: [address] Care Team Related Persons Name: ARELI JORGE
--- OUTSIDE RECORDS SUMMARY | 2024-11-27 10:52 | External Medical Summary | Continuity of Care Document ---
Author Name Unknown Organization [address] Address [address] [place] [address] [place]ANK[place], [place] [id number] Care Team Providers Care Cnc Wood Lathe Operator Name Role Phone Estelle Guzmán Primary Care Physician [phone] Encounter [facility] MEGR [id number] Date(s): 08/28/24 - 08/28/[address] [facility] [address] 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) - 08/28/24 Increased urinary frequency(Discharge Diagnosis) - 08/28/24 Need for influenza vaccination(Discharge Diagnosis) - 08/28/24 Major depression, recurrent(Discharge Diagnosis) - 08/28/24 Frequency of micturition(Final) - Type 2 diabetes mellitus with other diabetic kidney complication(Final) - Discharge Disposition: Home or Self Care Attending Physician: MD Guzmán Ravishankar E Referring Physician: MD Guzmán Ravishankar E Allergies, Adverse Reactions, Alerts No Known Allergies Assessment and Plan Extracted from: Title:Office Visit Note Author:MD Guzmán Ravishan kar E Date:08/28/24 1.Acute cerebrovascular ac cident (CVA) due to embolism of right middle cerebral artery - Recovering s/p TCAR procedure with Vascular - Continue PT/OT 2.Type 2 diabetes mellitus with albuminuria - A1C today to ascertain level of control as not checking at home - DM foot/eye UTD - Adjust regimen accordingly based on A1C 3.Increased urinary frequency - PSA screen with labs - Suspect hyperglycemia as potential etiology 4.Need for influenza vaccination - HD Flu given today, VIS provided 5.Major depression, recurrent - Continue lexaproas still within 1st month of therapy - if not responding in 2-3 more weeks consider changing to remeron for dual benefit with regard to sleep, appetite, and depression treatment - Pt contracts for safety f/u 3 months for re-check. Time: 40mins 5 - pre-visit chart review [...] vaccine 07/11/24 Recorded SARS-CoV-2 (COVID-19) mRNA-vacc - [id number] 09/10/23 Recorded pneumococcal 23-valent vaccine 1 10/14/22 [...] Daily, Disp# 90 tab, Refills: 3, Pharmacy: [facility] #[id number] Start Date: 07/15/24 Stop Date: 07/10/25 Status: Ordered clopidogrel 75 mg oral tablet Start: 08/20/24 4:36:00 PM EDT, 1 tab, PO, Daily, Disp# 30 tab, Refills: 0, Pharmacy: [facility] #[id number] Start Date: 08/20/24 Status: Ordered colchicine 0.6 mg oral tablet Start: 01/29/24 4:12:00 PM EDT, 1 tab, PO, bid, Disp# 60 tab, Refills: 0, [id number] Start Date: 01/29/24 Stop Date: 02/28/24 Status: Ordered levothyroxine 25 mcg (0.025 mg) oral tablet Start: 08/09/24 4:04:00 PM EDT, 1 tab, PO, Daily, Disp# 30 tab, Refills: 6, Pharmacy: [facility] #[id number] Start Date: 08/09/24 Status: Ordered Lexapro 10 mg oral tablet Start: 08/21/24 8:58:00 AM EDT, 1 tab, PO, Daily, Disp# 30 tab, Refills: 0, Pharmacy: [facility] #[id number] Start Date: 08/21/24 Status: Ordered lisinopril 5 mg oral tablet Start: 08/05/24 12:46:00 PM EDT, 1 tab, PO, Daily Start Date: 08/05/24 Status: Ordered melatonin 1 mg oral tablet Start: 08/05/24 12:52:00 PM EDT, 3 tabs, as needed at bed time Start Date: 08/05/24 Status: Ordered metFORMIN 500 mg oral tablet Start: 07/11/24 8:10:00 AM EDT, 2 tab, PO, bid, Disp# 360 tab, Refills: 3, Pharmacy: [facility] #[id number] Start Date: 07/11/24 Stop Date: 07/06/25 Status: Ordered sildenafil 20 mg oral tablet Start: 03/11/24 9:37:00 AM EDT, See Instructions, Disp# 30 tab, Refills: 11, take 2-5 tabs as directed for ED, Note to Pharmacy: Use [employer] Voucher, given to pt, Pharmacy: [facility] #[id number] Start Date: 03/11/24 Status: Ordered triamcinolone 0.1% topical ointment Start: 03/11/24 9:39:00 AM EDT, 1 appl, topical, bid, Disp# 30 g, Refills: 0, apply a thin film to affected area bid x 7 days to treat itching, Pharmacy: [facility] #[id number] Start Date: 03/11/24 Stop Date: 03/18/24 Status: Ordered Tylenol Start: 01/31/24 2:25:00 PM EDT Start Date: 01/31/24 Status: Ordered verapamil 180 mg/12 hours oral tablet, extended release Start: 02/12/24 1:06:00 PM EDT, See Instructions, Disp# 90 tab, Refills: 3, take 1 tablet by mouth every morning, Pharmacy: [facility] #[id number] Start Date: 02/12/24 Status: Ordered Mental Status 08/28/24 Barriers to Learning one year None evide nt Mandatory Health Literacy Documentation Yes Health Literacy Communication Barriers N ever Primary Language Moldovan Problem List Condition Confirmation Course Effective Dates [...] tests Confirmed Active Mixed hyperlipidemia Confirmed Active Major depression, recurrent Confirmed Active Spinal stenosis of lumbar region Confirmed Active Sprain of right ankle Confirmed Active 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 Diagnosis Diagnosis Type Effective Dates Health Status Clinical Service Informant 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 Discharge Diagnosis 08/28/24 Non-Specified Type 2 diabetes mellitus with albuminuria Discharge Diagnosis 08/28/24 Non-Specified Increased urinary frequency Discharge Diagnosis 08/28/24 Need for influenza vaccination Discharge Diagnosis 08/28/24 Non-Specified Major depression, recurrent Discharge Diagnosis 08/28/24 Non-Specified Procedures Procedure Date Related Diagnosis Body [...] 10 years Results Laboratory List Name Date Hemoglobin A1C (HEMOGLOBIN, A1C) 4 Prostate Specific Antigen (PSA, TOTAL) 1 Most recent to oldest [Reference Range]: 1 Estimated Average Glucose 137 mg/dL (08/28/24 4:05 PM) PSA, Total [<7.21 ng/mL] 1.00 ng/mL (08/28/24 4:05 PM) HbA1c [<5.7 %] 6.4 % 1 *HI* (08/28/24 4:05 PM) 1Result Comment: ADA Recommended [place] Reference Range: Normal: <5.7% Prediabetes: 5.7-6.4% Diabetes: >6.4% Hb A1c results in patients with severe anemia or recent RBC transfusion are unreliable and do not represent the patient glycemic control. Vital Signs Most recent to oldest [Reference Range]: 1 Patient Weight 66 kg (08/28/24 10:36 AM) Heart Rate 84 bpm (08/28/24 10:36 AM) Respiratory Rate 20 br/min (08/28/24 10:36 AM) Blood Pressure 109/58mmHg (08/28/24 10:36 AM) Social History Social History Type Response Tobacco Former smoker, Cigar ettes 1 Smoking Status Never smoked cigaret chichi Sex Male Sex Representation Male (finding) 1Quit 30 to 40 years ago. Smoked approx 1/2 ppd for 15 years. [facility] Outpt Note * MD Ramirez, Estelle Poole: PERFORM Event Display: [facility] Outpt Note Authored Date: Chief Complaint 6 mo f/u - feeling generalized weakness and malaise, due for DM labs History of Present Illness Vernon is an 83yoM here today for 6m f/u of chronic conditions notably s/p TCAR procedure with for managementof stroke which presented delayed. He had been struggling with depression since then as he similarly experienced 10yrs ago after stroke. He's following with psychologist but at last visit with Dr. Paula was started on lexapro 10mg 08/05 and wishes to stay on this for now, afraid of changing regimens. He has been losing weight due to poor appetite/generalized malaise. Diabetes has been stable but due for repeat A1C today. He's felt more thirsty and more urination. Due for HDflu shot today. Review of Systems 08/19pt ROS reviewed/negative except as noted in HPI. Physical Exam Vitals & Measurements HR:84(Monitored) RR:20 BP:109/58 SpO2:97% WT:66.000kg(Dosing) WT:66kg PHQ2 Data(Data Documented on:08/28/2024 10:31) Emotional health assessment NEGATIVE GENERAL APPEARANCE: The patient is alert, oriented and in no acute distress. VITALS: As above. HEENT: Head is normocephalic/atraumatic. CARDIOVASCULAR: +2 radialpulses. LUNGS: Respirations even and unlabored. EXTREMITIES: No cyanosis, clubbing or edema. PSYCH: Somnolent affect. No SI/HI but soft spoken and apathetic. Good insight. NEUROLOGICAL: Grossly non-focal exam. SKIN: Warm and dry without any rash. Assessment/Plan 1.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 - Recovering s/p TCAR procedure with Vascular - Continue PT/OT 2.Type 2 diabetes mellitus with albuminuria - A1C today to ascertain level of control as not checking at home - DM foot/eye UTD - Adjust regimen accordingly based on A1C 3.Increased urinary frequency - PSA screen with labs - Suspect hyperglycemia as potential etiology 4.Need for influenza vaccination - HD Flu given today, VIS provided 5.Major depression, recurrent - Continue lexaproas still within 1st month of therapy - if not responding in 2-3 more weeks consider changing to remeron for dual benefit with regard to sleep, appetite, and depression treatment - Pt contracts for safety f/u 3 months for re-check. Time: 40mins 5 - pre-visit chart review 30 - visit, inclusive of history, exam, and discussion of assessment/plan 5 - post-visit documentation/orders/coordination of care Problem List/Past Medical History Ongoing 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 Bilateral carotid artery stenosis Elevated liver function tests Exostosis of right foot Gout Gout of both feet History of bladder cancer History of hepatitis A Hypertension Hypothyroid Idiopathic chronic gout, left ankle and foot, with tophus (tophi) Major depression, recurrent Mixed hyperlipidemia Spinal stenosis of lumbar region [...] tablet), 10 mg= 1 tab, PO, Daily influenza virus vaccine, inactivated(influenza virus vaccine, inactivated High- Dose preservative-free TRIvalent IM susp), 0.5 mL, IM, ONCE levothyroxine(levothyroxine 25 mcg (0.025 mg) oral tablet), [...] Lung Disease Immunizations Vaccine Date Status pneumococcal 20-valent conjugate vaccine 07/11/2024 Recorded SARS-CoV-2 (COVID-19) mRNA-vacc - [id number] 09/10/2023 Recorded influenza virus vaccine, inactivated 08/25/2023 Recorded pneumococcal 23-valent vaccine 10/14/2022 Given Comments : [facility] influenza virus vaccine, inactivated 08/09/2022 Recorded SARS-CoV-2 [...] due05/05/24and every 1year Due Adult COVID-19 Vaccination due08/28/24Unknown Frequency Adult Social Determinants of Health Screening due08/28/24Unknown Frequency Falls Plan of Care due08/28/24Unknown Frequency Shingles Vaccine due08/28/24One-time only Due In Future Diabetes Management A1c not due until02/28/25and every 366day Diabetic Eye Exam not due until05/11/25and every 366day Satisfied(in the past 1 year) Satisfied Body Mass Index on02/26/24.Satisfied by BRAXTON Haynes Angela Depression Follow Up Plan on08/05/24.Satisfied by MD Guzmán Ravishankar E Diabetes Management A1c on02/28/24.Satisfied by Contributor_system, [email or web address] Diabetes Nephropathy Management on02/28/24.Satisfied by Contributor_system, [email or web address] Lipid Screening on02/28/24.Satisfied by Contributor_system, [email or web address] Electronic Signature on File Electronically Reviewed/Signed by: Estelle Guzmán MD Author Signature Dt/Tm:08/28/2024 11:12 AM Department of Family Medicine [facility] Patient Care team information Care Team Personnel Name: TRIPP García Lynn Position: Physician Ecommerce Analyst Exempt - Vasc Surg Member Role: Lifetime Relationship Address: [address] [place] [id number] [place] Name: MD Guzmán Ravishankar E Position: Physician Member Role: Primary Care Provider Address: [address] [place] [address], [place] [address] [place] Care Team Related Persons Name: ARELI JORGE"
--- NOTE | 2024-11-27 10:54 | CT Scan Report ---
CTA ANGIOGRAPHY OF THE HEAD CLINICAL HISTORY: dizziness, h/o cva COMPARISON STUDY: CTA of the head July 21, 2024. MRI of the brain July 10, 2024. TECHNIQUE: Helical axial images of the head were obtained following uneventful intravenous administr ation of 112 cc of Optiray. Sagittal and coronal reconstructions were viewed as well as maximal inten sity projections on an independent 3-D workstation. Automated exposure control was utilized for the study. A dose lowering technique was utilized adhering to the principles of ALARA. CT DOSE: 1225.75 mGy.cm FINDINGS: No acute intracranial hemorrhage, midline shift or mass effect is present. Ventricular syst em is stable. Basal cisterns are patent. There are no extra-axial collections. The bilateral M1, M2, A1 and A2 segments are patent. Right vertebral artery is diminutive. This is unchanged and likely on a congenital basis. The basilar artery is patent. The posterior cerebral arteries are patent. There a re large bilateral posterior communicating arteries. No vessel cut off is identified. There is no int racranial aneurysm. No stenoses within the intracranial vessels are present. IMPRESSION: No large vessel occlusion. No intracranial aneurysm. ACT 112: Negative or not required by law. Electronically signed by: Jaden Acevedo M.D. 11/27/2024 10:51 AM
[2024-11-27] MEDS: MAGNESIUM SULFATE / D5W 1 GM/100 ML BAG IV STA (11:18)
[2024-11-27 11:24] LABS: Adenovirus PCR Not Detected (NotDetected); Bordetella parapertussis PCR Not Detected (NotDetected); Bordetella pertussis PCR Not Detected (NotDetected); Chlamydia pneumoniae PCR Not Detected (NotDetected); Coronavirus 229E PCR Not Detected (NotDetected); Coronavirus CoV-2 (COVID19)PCR Not Detected (NotDetected); Coronavirus HKU1 PCR Not Detected (NotDetected); Coronavirus NL63 PCR Not Detected (NotDetected); Coronavirus OC43PCR Not Detected (NotDetected); Human Metapneumovirus PCR Not Detected (NotDetected); Influenza A PCR Not Detected (NotDetected); Influenza B PCR Not Detected (NotDetected); Mycoplasma pneumoniae PCR Not Detected (NotDetected); Parainfluenza Virus 1 PCR Not Detected (NotDetected); Parainfluenza Virus 2 PCR Not Detected (NotDetected); Parainfluenza Virus 3 PCR Not Detected (NotDetected); Parainfluenza Virus 4 PCR Not Detected (NotDetected); Respiratory Syncytial VirusPCR Not Detected (NotDetected); Rhinovirus/Enterovirus PCR Not Detected (NotDetected)
[2024-11-27 11:34] LABS: Reticulocyte % 1.56 % (0.50-2.00); Reticulocytes # 0.05 10^6/uL (0.020-0.100)
--- NOTE | 2024-11-27 11:49 | Electrocardiogram Report ---
Test Reason : Blood Pressure : */* mmHG Vent. Rate : 92 BPM Atrial Rate : 92 BPM P-R Int : 160 ms QRS Dur : 86 ms QT Int : 370 ms P-R-T Axes : 30 10 47 degrees QTcB Int : 457 ms Normal sinus rhythm Normal ECG When compared with ECG of 21-Jul-2024 00:35, Vent. rate has increased by 31 bpm QRS axis Shifted right Confirmed by Trevor Hemphill ([id number]) on 11/27/2024 11:49:04 AM Referred By: Confirmed By: Trevor Hemphill
[2024-11-27 11:58] LABS: Ferritin 7.7 ng/ml (8-388)
[2024-11-27] MEDS ORDERED: SODIUM CHLORIDE 0.9% 50 ML IV PRN ×2 (12:50→15:13)
[2024-11-27] MEDS ORDERED: SODIUM CHLORIDE 0.9% 100 ML IV PRN ×2 (12:50→15:13)
[2024-11-27] MEDS: PANTOprazole 40 MG/10 ML SYR IV ONE (13:16)
--- NOTE | 2024-11-27 13:19 | History & Physical Report ---
Date of Service November 27, 2024 Assessment & Plan (1) Anemia: (2) Dizziness: (3) Hypothyroid: (4) Diabetes: Plan Vernon torres 84M with a PMHx of HTN, gout, DMII, bladder CA, CKD, hypothyroidism, hypercholesterolemia, hx of CVA with carotid artery stenosis s/p TCAR who presents to the ER with dizziness and near syncope. New found anemia with suspect GI bleed (recent labs with [facility] PCP did not include CBC). Admitted for GI evaluation and further workup. #Anemia/Suspect GI bleed/ unintentional weight loss Hgb 7.5 on arrival, baseline ~13-14, with + heme occult in ED. Repeat hgb 6.6, transfuse 1u PRBC, recheck CBC post transfusion Continue Protonix 40mg IV BID Consult GI - NPO until GI eval Hold aspirin and plavix #Dizziness - likely related to anemia Head CT/Head CTA/Neck CTA without acute findings. Check orthostatic vital signs #Hx of CVA/HTN Hold ASA and plavix given acute bleed Continue lisinopril and verapamil #Diabetes Type 2 Hold home metformin. A1c 07/2024: 8.0, recheck in AM BSG ACHS. SSI with CF 50, CR 20 Depression - continue Lexapro and mirtazapine Hypothyroidism - TSH WNL 11/2024. Continue Synthroid Dispo: admit to med tele Dvt proh: SCDs CODE STATUS: Full History of Present Illness Chief Complaint: dizziness, fall Primary Care Provider: Delbert Guzmán MD Vernon torres 84M resident of the [facility], with a PMHx of HTN, gout, DMII, bladder CA, CKD, hypothyroidism, hypercholesterolemia, hx of CVA with carotid artery stenosis s/p TCAR who presents to the ER with dizziness/ near syncope. Woke up this morning and felt dizzy, tried to hydrated. Took a shower and then was lightheaded and fell on night stand and broke it. Hx of stroke in July and thought it feel similar but no focal weakness, or numbness. Has some residual left sided weakness, but does not use assistive devices and has been working with PT outpatient. Reports has felt different since TCAR in july. Denies abdominal pain but reports increase bloating/gas since surgery. Reports tongue has been tasting bad from gas, rapid decrease in appetite. Heartburn symptoms are new for him. Everything feels like he is eating sand/faye. Has lost 30 lbs unintentionally. Reports feeling down the last week, increased depression after stroke. Goes to PT twice a week. Reports lightheadedness and dizziness with PT. Almost feel at therapy on Monday. Prior colonoscopy 8-10 years, with [facility]. Urges for stools but is mostly gas. No black tarry stools or melena noted. Recently started Miralax for constipation without relief. updated at bedside. Patient confirms he is a full code. Reports recent labs done at PCP with [facility] - did not include CBC ED course: NSS 1L Mag 1g IV Protonix 40mg IV x1 Allergies Allergy/AdvReac Type Severity Reaction Status Date / Time shellfish derived Allergy Intermediate Diarrhea Verified 11/27/24 12:39 Home Medications Medication Instructions Recorded Confirmed Type levothyroxine 25 mcg tablet 25 mcg PO DAILYBB 08/19/19 11/27/24 History verapamil 180 mg tablet,extended 180 mg PO QAM 08/19/19 11/27/24 History release metformin 500 mg tablet 1,000 mg PO BID 04/15/21 11/27/24 History aspirin 81 mg tablet,delayed 81 mg PO QAM 01/24/24 11/27/24 History release clopidogrel 75 mg tablet (Plavix) 75 mg PO QAM 07/16/24 11/27/24 History atorvastatin 80 mg tablet 80 mg PO HS #30 tabs 07/22/24 11/27/24 Rx lisinopril 10 mg tablet 10 mg PO QAM #30 tabs 07/22/24 11/27/24 Rx escitalopram oxalate 10 mg tablet 10 mg PO DAILY 11/27/24 11/27/24 History mirtazapine 15 mg tablet 7.5 mg PO HS 11/27/24 11/27/24 History omeprazole 20 mg capsule,delayed 20 mg PO DAILY 11/27/24 11/27/24 History release Past Med/Surg History Problem List (Updated 11/27/24 @ 15:39 by Rom Chandra MD) On clopidogrel therapy (Acute) Iron deficiency (Acute) GIB (gastrointestinal bleeding) (Acute) Anemia (Acute) Near syncope (Acute) Anemia History of transcarotid artery revascularization (TCAR) Chest pressure Chest pain (Acute) Bilateral carotid artery disease HTN (hypertension) (Acute) Gout Hyperglycemia due to type 2 diabetes mellitus Acute foot pain (Acute) TIA (transient ischemic attack) CVA vs TIA 2012 History of CVA (cerebrovascular accident) (Acute) 07/09/24 Numbness and tingling of right arm (Acute) Dizziness (Acute) Vertigo Hypothyroid Hypercholesteremia Diabetes Kidney disease Upper extremity neuropathy (Acute 10/06/13) Occipital neuralgia (Acute) Left ear injury (Acute) Headache (Acute) Stomach problems (Chronic) Urinary problem (Chronic) Medical History (Updated 11/27/24 @ 15:39 by Rom Chandra MD) LVH (left ventricular hypertrophy) severe cLVH per 07/10/24 ECHO CKD (chronic kidney disease) History of depression r/t first stroke - no issues currently Hypothyroidism HTN (hypertension) Gout 01/24/24-01/25/24 [facility]; Rx colchicine Diabetes mellitus, type 2 Hx: UTI (urinary tract infection) 01/2024 [facility] admission sepsis /2 UTI; resolved Hx of sepsis 12/08 to UTI 01/2024 admission Carotid stenosis 07/09/24 imagin% stenosis of the proximal right ICA and 60% stenosis on the left History of bladder cancer 2010; s/p BCG tx Urinary frequency CVA (cerebral vascular accident) 06/2013 in [place] (CVA vs TIA per chart review) 07/09/24 [facility]: presented with LUE weakness; 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, associated 90% proximal R ICA stenosis, 60% stenosis L; plan for R TCAR; per pt, no residual sx Surgical History (Updated 08/11/24 @ 00:08 by Jairo Woodall) History of bladder surgery Hx of Achilles tendon repair Right Hx of colonoscopy Hx of appendectomy Family History Mother Hypertension Father Tuberculosis Social History Smoking Status: Never smoker Tobacco Type: Cigarettes Second Hand Exposure: No; Do You Dip or Chew Tobacco: No; Tobacco Cessation Education Requested by Patient: No Hx Alcohol Use: No Hx Substance Use: No Preferred Language: Croatian Communication Ability: Effective Wind Turbine Service Technician Required: No Beliefs That Will Affect Care: None Current Living Situation: Spouse Current Living Situation Comment: Lives with at the [facility]. 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 Other Information That Helps Us Care for You: No Feels Safe at Home: Yes Safety Concerns: Feels Safe At This Time Assistive Devices: Glasses Review of Systems Review of Systems: All systems reviewed & are unremarkable except as noted in Subjective Physical Exam Physical Exam: General: NAD, VS as above, sitting up in bed, pleasant HEENT: conjunctiva pale, MM dry Resp: normal respiratory effort, lungs clear to auscultation CV: tachycardic, no murmur, Abd: normal bowel sounds, non tender, soft Extremities: Moves all extremities, no edema Neuro: A&O x3, Skin: intact, no lesions noted Results & Data Results & Data Vital Signs (Past 12 Hours) Vital Signs Temp Pulse Resp BP Pulse Ox O2 Del Method 11/27/24 12:30 156/99 H 11/27/24 12:30 108 H 20 97 11/27/24 12:15 101 H 18 97 11/27/24 12:00 145/73 H 11/27/24 11:39 98 H 26 H 97 11/27/24 11:33 102 H 22 97 11/27/24 11:32 147/72 H 11/27/24 11:18 95 H 24 98 11/27/24 11:15 97 H 21 97 11/27/24 10:36 92 H 18 98 11/27/24 10:30 141/69 H 11/27/24 10:30 141/69 H 11/27/24 10:00 94 H 17 96 11/27/24 09:44 95 Room Air 11/27/24 09:38 98.0 F 87 18 138/66 98 Room Air 11/27/24 09:36 92 H 19 96 11/27/24 09:35 91 H 11/27/24 09:30 128/67 11/27/24 09:27 91 H 16 97 11/27/24 09:17 138/66 Laboratory Results cbc, chemistry, mag reviewed iron studies reviewed Diagnostic Findings head ct, head and neck cTA reviewed Supervising Physician Co-Signing Physician Notes I personally saw and examined the patient. I independently reviewed the labs, EKG, imaging, problem list, medication list, past medical history and family history. I verified all walker points and agree with Jamila Corcoran PA-C with the following exceptions and/or additions: 84 year old male presents to the ER with dizziness. Hemoglobin 7.5 from 14 in July after starting aspirin and clopidogrel. He also notes 30lb of weight loss during this time but also notes eating much less with decreased appetite and reflux. O/E HS RRR, no murmurs, Chest CTAB, Abdo SNT A/P Acute blood loss anemia, Acute GI bleed - heme positive stool with increased BUN and Hgb drop 7.5 from 14 in July. Pantoprazole IV. clear liquids today then NPO after midnight. Discussed with gastroenterology and will get CT A/P with IV contrast in AM. Consult GI. PG Care Time/CCT Total # of Minutes Spent Total Time Spent with Patient: Total time spent is greater than 50% in coordination of care (as documented) at patient's floor/unit and/or counseling patient: Coding Level of Care Code 28632 INT INP/OBS CARE 3/75MIN Diagnoses Anemia D64.9 Dizziness R42 Hypothyroid E03.9 Diabetes E11.9
--- NOTE | 2024-11-27 14:20 | Gastrointestinal Consultation ---
Date of Consultation November 27, 2024 Assessment & Plan (1) Anemia: 84 year old male with history of HTN, gout, T2DM, bladder CA, CKD, hypothyroidism, hypercholesterolemia, hx of CVA with carotid artery stenosis s/p TCAR on ASA/Plavix presenting w/ symptomatic anemia. He denies black/bloody stools but does recall darker stools a few weeks ago. He is noted to be heme-positive and iron deficient. In the setting of unintentional weight loss, he will need evaluation to include CT and endoscopic evaluation to rule out any sinister pathology. Trend H&H Monitor and document GI output Transfuse PRN per primary team Continue IV PPI Hold ASA Hold Plavix CTAP w/ contrast EGD/Colon timing TBD pending above I spent a total of 60 minutes on the date of service in review of patient's record, and previously obtained information in person and appropriate medical visit, discussion and education of plan, with patient and/or caregiver, placing orders for tests/referral/procedures as medically necessary and documentation of pertinent clinical information in patient's medical records for their visit today. Supervising Physician Co-Signing Physician Notes Patient with 30 pound weight loss. Sounds like he has trouble eating. Symptoms certainly concerning for neoplasia patient is of descent there is an increased risk of gastric cancer. We will evaluate with endoscopy. Transfuse iron deficiency will require iron repletion. History of Present Illness History of Present Illness 84 year old male with history of HTN, gout, T2DM, bladder CA, CKD, hypothyroidism, hypercholesterolemia, hx of CVA with carotid artery stenosis s/p TCAR who presents to the ER with dizziness/ near syncope - GI asked to evaluate for anemia. Pt was seen and evaluated, chart reviewed. Suggests he has had occasional gas/bloating and heartburn for a few months. Denies abd pain. No nausea/vomiting. No report of dysphagia. Occasional constipation. Denies black or bloody stools but does recall seeing a very dark stool a few weeks ago. He has had a 30 lb weight loss On ASA/Plavix. HGB 6.6, HGB in July was 14 BUN 44 No recent GI imaging Has had previous EGD/Colon through [facility] but these were years ago. Allergies Allergy/AdvReac Type Severity Reaction Status Date / Time shellfish derived Allergy Intermediate Diarrhea Verified 11/27/24 12:39 Home Medications Medication Instructions Recorded Confirmed Type levothyroxine 25 mcg tablet 25 mcg PO DAILYBB 08/19/19 11/27/24 History verapamil 180 mg tablet,extended 180 mg PO QAM 08/19/19 11/27/24 History release metformin 500 mg tablet 1,000 mg PO BID 04/15/21 11/27/24 History aspirin 81 mg tablet,delayed 81 mg PO QAM 01/24/24 11/27/24 History release clopidogrel 75 mg tablet (Plavix) 75 mg PO QAM 07/16/24 11/27/24 History atorvastatin 80 mg tablet 80 mg PO HS #30 tabs 07/22/24 11/27/24 Rx lisinopril 10 mg tablet 10 mg PO QAM #30 tabs 07/22/24 11/27/24 Rx escitalopram oxalate 10 mg tablet 10 mg PO DAILY 11/27/24 11/27/24 History mirtazapine 15 mg tablet 7.5 mg PO HS 11/27/24 11/27/24 History omeprazole 20 mg capsule,delayed 20 mg PO DAILY 11/27/24 11/27/24 History release Patient History Medical History (Updated 11/27/24 @ 15:39 by Rom Chandra MD) LVH (left ventricular hypertrophy) severe cLVH per 07/10/24 ECHO CKD (chronic kidney disease) History of depression r/t first stroke - no issues currently Hypothyroidism HTN (hypertension) Gout 01/24/24-01/25/24 [facility]; Rx colchicine Diabetes mellitus, type 2 Hx: UTI (urinary tract infection) 01/2024 [facility] admission sepsis 2/2 UTI; resolved Hx of sepsis 12/08 to UTI 01/2024 admission Carotid stenosis 07/09/24 imagin% stenosis of the proximal right ICA and 60% stenosis on the left History of bladder cancer 2010; s/p BCG tx Urinary frequency CVA (cerebral vascular accident) 06/2013 in [place] (CVA vs TIA per chart review) 07/09/24 [facility]: presented with LUE weakness; dx acute posterior frontal R MCA em bolic stroke, associated 90% proximal R ICA stenosis, 60% stenosis L; plan for R TCAR; per pt, no residual sx Surgical History (Updated 08/11/24 @ 00:08 by Background Daemon) History of bladder surgery Hx of Achilles tendon repair Right Hx of colonoscopy Hx of appendectomy Family History Mother Hypertension Father Tuberculosis Social History Smoking Status: Never smoker Tobacco Type: Cigarettes Second Hand Exposure: No; Do You Dip or Chew Tobacco: No; Hx Alcohol Use: Yes Alcohol type: wine Alcohol Intake Frequency Comment: 1 glass with dinner 4 times per week Hx Substance Use: No Preferred Language: St Helenian Communication Ability: Effective Motor Teacher Required: No Beliefs That Will Affect Care: None Current Living Situation: Spouse Current Living Situation Comment: Lives with at the [facility]. 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 Physical Exam Constitutional: WD/WN, vitals as above Respiratory: normal respiratory effort, lungs clear to auscultation Cardiovascular: RRR, no murmur, no edema Gastrointestinal (Abdomen): normal bowel sounds, soft, nontender, no hepatosplenomegaly Skin: no rashes, warm and dry Results & Data Vital Signs (Past 12 Hours) Vital Signs Temp Pulse Resp BP Pulse Ox O2 Del Method 11/27/24 13:48 108 H 22 96 11/27/24 13:35 106 H 11/27/24 13:31 183/71 H 11/27/24 13:21 108 H 19 97 11/27/24 13:09 116 H 22 96 11/27/24 13:00 135/76 11/27/24 12:57 102 H 21 96 11/27/24 12:30 156/99 H 11/27/24 12:30 156/99 H 11/27/24 12:30 108 H 20 97 11/27/24 12:15 101 H 18 97 11/27/24 12:00 145/73 H 11/27/24 11:39 98 H 26 H 97 11/27/24 11:33 102 H 22 97 11/27/24 11:32 147/72 H 11/27/24 11:18 95 H 24 98 11/27/24 11:15 97 H 21 97 11/27/24 10:36 92 H 18 98 11/27/24 10:30 141/69 H 11/27/24 10:30 141/69 H 11/27/24 10:00 94 H 17 96 11/27/24 09:44 95 Room Air 11/27/24 09:38 98.0 F 87 18 138/66 98 Room Air 11/27/24 09:36 92 H 19 96 11/27/24 09:35 91 H 11/27/24 09:30 128/67 11/27/24 09:27 91 H 16 97 11/27/24 09:17 138/66 Laboratory Results 11/27/24 11/27/24 11/27/24 Range/Units 14:30 13:01 10:20 WBC 8.37 (4.8-10.8) K/ul RBC 2.70 L (4.70-6.10) M/uL Hgb 6.6 L* (14.0-18.0) g/dl POC Hgb (14.0-18.0) g/dl Hct 21.3 L (42.0-52.0) % POC Hct (42-52) % MCV 78.9 L (80.0-100.0) fL MCH 24.4 L (25.0-34.0) pg MCHC 31.0 L (32.0-36.0) g/dL RDW Std Deviation 49.2 H (36.4-46.3) fL RDW Coeff of Parvin 17.0 H (11.5-14.5) % Plt Count 217 (130-400) K/uL MPV 8.9 L (9.4-12.4) fL Immature Gran % (Auto) % Neut % (Auto) % Lymph % (Auto) % [place] % (Auto) % Eos % (Auto) % Baso % (Auto) % Reticulocyte % (Auto) (0.50-2.00) % Neut # (Auto) (1.40-6.50) K/uL Lymph # (Auto) (1.20-3.40) K/uL [place] # (Auto) (0.11-0.59) K/uL Eos # (Auto) (0.00-0.50) K/uL Baso # (Auto) (0.00-0.20) K/uL Reticulocyte # (0.020-0.100) 10^6/uL Immature Gran # (Auto) (0.01-0.20) K/uL Polychromasia Hypochromasia Ovalocytes PT (9.0-12.0) Seconds INR (0.9-1.1) POC Sodium (135-144) mmol/L Sodium (136-145) mmol/L POC Potassium (3.3-5.0) mmol/L Potassium (3.5-5.1) mmol/L POC Chloride (101-112) mmol/L Chloride (98-107) mmol/L Carbon Dioxide (21-32) mmol/L POC Total CO2 (24-31) mmol/L Anion Gap (3-11) POC Anion Gap (16-25) mmol/L POC BUN (7-18) mg/dl BUN (6-23) mg/dl Creatinine (0.6-1.4) mg/dl POC Creatinine (0.6-1.3) mg/dl Est Cr Clr Drug Dosing ml/min eGFR BUN/Creatinine Ratio (10-20) Glucose (70-99(Fasting)) mg/dl POC Glucose (other) (70-99) mg/dl Calcium (8.6-10.3) mg/dl POC Ioniz Calcium Archie (1.12-1.32) mmol/l Phosphorus (2.5-4.9) mg/dl Magnesium (1.7-2.4) mg/dl Iron (35-175) mcg/dl Unsaturated IBC (155-355) mcg/dl Transferrin (200-360) mg/dl Ferritin (8-388) ng/ml Total Bilirubin (0.2-1.0) mg/dl AST (13-39) U/L ALT (7-52) U/L Alkaline Phosphatase (34-104) U/L Troponin I High Sens (0-20) pg/ml Total Protein (6.0-8.3) gm/dl Albumin (3.4-5.0) gm/dl Globulin (2.5-4.0) gm/dl Albumin/Globulin Ratio (0.9-2) Lipase (11-82) U/L TSH (0.300-4.500) uIu/ml Urine Color Yellow Urine Appearance Clear (Clear) Urine pH 5.0 (4.5-7.5) Ur Specific Range 1.029 (1.000-1.030) Urine Protein Negative (Negative) Urine Glucose (UA) Trace H (Negative) Urine Ketones 1+ H (Negative) Urine Blood Negative (Negative) Urine Nitrite Negative (Negative) Urine Bilirubin Negative (Negative) Urine Urobilinogen Negative (Negative) Ur Leukocyte Esterase Negative (Negative) Adenovirus (PCR) (NotDetected) B. pertussis DNA (PCR) (NotDetected) B.parapertussis DNA PCR (NotDetected) C. pneumoniae DNA (PCR) (NotDetected) Coronavirus OC43 (PCR) (NotDetected) Coronavirus HKU1 (PCR) (NotDetected) Coronavirus 229E (PCR) (NotDetected) SARS-CoV-2 (PCR) (NotDetected) Coronavirus NL63 (PCR) (NotDetected) Human Metapneumovir PCR (NotDetected) Influenza Type A (PCR) (NotDetected) Influenza Type B (PCR) (NotDetected) M. pneumoniae (PCR) (NotDetected) Parainfluenza 1 (PCR) (NotDetected) Parainfluenza 2 (PCR) (NotDetected) Parainfluenza 3 (PCR) (NotDetected) Parainfluenza 4 (PCR) (NotDetected) RSV (PCR) (NotDetected) Entero/Rhino (PCR) (NotDetected) Blood Type A Positive Antibody Screen NEGATIVE Crossmatch See Detail 11/27/24 11/27/24 11/27/24 Range/Units 09:56 09:36 09:30 WBC 7.43 (4.8-10.8) K/ul RBC 3.11 L (4.70-6.10) M/uL Hgb 7.5 L (14.0-18.0) g/dl POC Hgb 8.5 L (14.0-18.0) g/dl Hct 24.6 L (42.0-52.0) % POC Hct 25 L (42-52) % MCV 79.1 L (80.0-100.0) fL MCH 24.1 L (25.0-34.0) pg MCHC 30.5 L (32.0-36.0) g/dL RDW Std Deviation 49.2 H (36.4-46.3) fL RDW Coeff of Parvin 17.1 H (11.5-14.5) % Plt Count 230 (130-400) K/uL MPV 8.9 L (9.4-12.4) fL Immature Gran % (Auto) 0.5 % Neut % (Auto) 65.9 % Lymph % (Auto) 21.4 % [place] % (Auto) 7.1 % Eos % (Auto) 4.6 % Baso % (Auto) 0.5 % Reticulocyte % (Auto) 1.56 (0.50-2.00) % Neut # (Auto) 4.89 (1.40-6.50) K/uL Lymph # (Auto) 1.59 (1.20-3.40) K/uL [place] # (Auto) 0.53 (0.11-0.59) K/uL Eos # (Auto) 0.34 (0.00-0.50) K/uL Baso # (Auto) 0.04 (0.00-0.20) K/uL Reticulocyte # 0.050 (0.020-0.100) 10^6/uL Immature Gran # (Auto) 0.04 (0.01-0.20) K/uL Polychromasia 1+ Hypochromasia Present Ovalocytes 1+ PT 11.9 (9.0-12.0) Seconds INR 1.1 (0.9-1.1) POC Sodium 143 (135-144) mmol/L Sodium 141 (136-145) mmol/L POC Potassium 4.2 (3.3-5.0) mmol/L Potassium 4.2 (3.5-5.1) mmol/L POC Chloride 110 (101-112) mmol/L Chloride 111 H (98-107) mmol/L Carbon Dioxide 22 (21-32) mmol/L POC Total CO2 19 L (24-31) mmol/L Anion Gap 8 (3-11) POC Anion Gap 19.0 (16-25) mmol/L POC BUN 39 H (7-18) mg/dl BUN 44 H (6-23) mg/dl Creatinine 0.87 (0.6-1.4) mg/dl POC Creatinine 1.0 (0.6-1.3) mg/dl Est Cr Clr Drug Dosing 58.1 ml/min eGFR 85.61 BUN/Creatinine Ratio 50.6 H (10-20) Glucose 160 H (70-99(Fasting)) mg/dl POC Glucose (other) 152 H (70-99) mg/dl Calcium 8.5 L (8.6-10.3) mg/dl POC Ioniz Calcium Archie 1.21 (1.12-1.32) mmol/l Phosphorus 2.4 L (2.5-4.9) mg/dl Magnesium 1.6 L (1.7-2.4) mg/dl Iron 34 L (35-175) mcg/dl Unsaturated IBC 329 (155-355) mcg/dl Transferrin 315 (200-360) mg/dl Ferritin 7.7 L (8-388) ng/ml Total Bilirubin 0.3 (0.2-1.0) mg/dl AST 13 (13-39) U/L ALT 12 (7-52) U/L Alkaline Phosphatase 59 (34-104) U/L Troponin I High Sens 5.2 (0-20) pg/ml Total Protein 5.9 L (6.0-8.3) gm/dl Albumin 3.7 (3.4-5.0) gm/dl Globulin 2.2 L (2.5-4.0) gm/dl Albumin/Globulin Ratio 1.7 (0.9-2) Lipase 38 (11-82) U/L TSH 2.804 (0.300-4.500) uIu/ml Urine Color Urine Appearance (Clear) Urine pH (4.5-7.5) Ur Specific Range (1.000-1.030) Urine Protein (Negative) Urine Glucose (UA) (Negative) Urine Ketones (Negative) Urine Blood (Negative) Urine Nitrite (Negative) Urine Bilirubin (Negative) Urine Urobilinogen (Negative) Ur Leukocyte Esterase (Negative) Adenovirus (PCR) Not Detected (NotDetected) B. pertussis DNA (PCR) Not Detected (NotDetected) B.parapertussis DNA PCR Not Detected (NotDetected) C. pneumoniae DNA (PCR) Not Detected (NotDetected) Coronavirus OC43 (PCR) Not Detected (NotDetected) Coronavirus HKU1 (PCR) Not Detected (NotDetected) Coronavirus 229E (PCR) Not Detected (NotDetected) SARS-CoV-2 (PCR) Not Detected (NotDetected) Coronavirus NL63 (PCR) Not Detected (NotDetected) Human Metapneumovir PCR Not Detected (NotDetected) Influenza Type A (PCR) Not Detected (NotDetected) Influenza Type B (PCR) Not Detected (NotDetected) M. pneumoniae (PCR) Not Detected (NotDetected) Parainfluenza 1 (PCR) Not Detected (NotDetected) Parainfluenza 2 (PCR) Not Detected (NotDetected) Parainfluenza 3 (PCR) Not Detected (NotDetected) Parainfluenza 4 (PCR) Not Detected (NotDetected) RSV (PCR) Not Detected (NotDetected) Entero/Rhino (PCR) Not Detected (NotDetected) Blood Type Antibody Screen Crossmatch PG Care Time/CCT Total # of Minutes Spent Total Time Spent with Patient: Total time spent is greater than 50% in coordination of care (as documented) at patient's floor/unit and/or counseling patient: Coding Level of Care Code 59725 INT INP/OBS CARE MIN Diagnoses Anemia D64.9
[2024-11-27 14:57] LABS: Hematocrit (blood only) 21.3 % (42.0-52.0); Hemoglobin 6.6 g/dl (14.0-18.0); Mean Corpuscular Hemoglobin 24.4 pg (25.0-34.0); Mean Corpuscular Volume 78.9 fL (80.0-100.0); Mean Platelet Volume 8.9 fL (9.4-12.4); Platelet Count 217 K/uL (130-400); RDW Standard Deviation 49.2 fL (36.4-46.3); White Blood Count 8.37 K/ul (4.8-10.8)
[2024-11-27] MEDS ORDERED: GLUCOSE 10 TAB/TUBE PO PRN (15:36)
[2024-11-27] MEDS ORDERED: GLUCAGON FOR INJ 1 MG VIAL SQ PRN (15:36)
[2024-11-27] MEDS ORDERED: CARBOHYDRATES FOR HYPOGLYCEMIA PO PRN (15:36)
[2024-11-27] MEDS ORDERED: GLUCOSE 40% GEL 15 GM TUBE PO PRN (15:36)
[2024-11-27] MEDS ORDERED: DEXTROSE 50% 50 ML SYRINGE IV PRN (15:36)
[2024-11-27] MEDS ORDERED: ACETAMINOPHEN 325 MG TAB PO PRN (15:36)
[2024-11-27] MEDS ORDERED: LAVAGE SOLUTION 4000ML PO SCH (17:45)
[2024-11-27 18:22] LABS: Hematocrit (blood only) 25.3 % (42.0-52.0); Mean Corpuscular Hemoglobin 25.3 pg (25.0-34.0); Mean Corpuscular Hgb Conc 31.6 g/dL (32.0-36.0); Mean Corpuscular Volume 80.1 fL (80.0-100.0); Mean Platelet Volume 9.1 fL (9.4-12.4); Platelet Count 214 K/uL (130-400); RDW Coefficient of Variation 17.2 % (11.5-14.5); Red Blood Count 3.16 M/uL (4.70-6.10); White Blood Count 7.44 K/ul (4.8-10.8)
[2024-11-27] MEDS: INSULIN ASPART PER UNIT CHARGE SC SCH (18:48)
[2024-11-27] MEDS: ATORVASTATIN 40 MG TAB PO SCH (21:47)
[2024-11-27] MEDS: MIRTAZAPINE TAB 15 MG TAB PO SCH (21:47)
[2024-11-27] MEDS: PANTOprazole 40 MG/10 ML SYR IV SCH (21:47)
[2024-11-27] MEDS: LAVAGE SOLUTION 4000ML PO SCH (23:26)
[2024-11-28 00:59] LABS: Hemoglobin 7.7 g/dl (14.0-18.0); Mean Corpuscular Hemoglobin 25.2 pg (25.0-34.0); Mean Corpuscular Hgb Conc 32.1 g/dL (32.0-36.0); Mean Corpuscular Volume 78.7 fL (80.0-100.0); Mean Platelet Volume 8.7 fL (9.4-12.4); Platelet Count 203 K/uL (130-400); RDW Coefficient of Variation 17.2 % (11.5-14.5); RDW Standard Deviation 49.2 fL (36.4-46.3); Red Blood Count 3.05 M/uL (4.70-6.10); White Blood Count 7.26 K/ul (4.8-10.8)
[2024-11-28] MEDS: LEVOTHYROXINE SODIUM 25 MCG TABLET PO SCH (05:52)
[2024-11-28] MEDS: OPTIRAY 320 100ml IV ONE (06:24)
[2024-11-28 06:26] LABS: Calcium 8.6 mg/dl (8.6-10.3); Potassium 3.9 mmol/L (3.5-5.1)
[2024-11-28 06:31] LABS: BUN Creatinine Ratio 36.6 (10-20); Creatinine Clr Calc Pharmacy 61.6 ml/min
[2024-11-28 07:01] LABS: Hematocrit (blood only) 24.3 % (42.0-52.0); Hemoglobin 7.7 g/dl (14.0-18.0); Mean Corpuscular Hemoglobin 25.1 pg (25.0-34.0); Mean Corpuscular Hgb Conc 31.7 g/dL (32.0-36.0); Mean Corpuscular Volume 79.2 fL (80.0-100.0); RDW Coefficient of Variation 17.3 % (11.5-14.5); RDW Standard Deviation 50.2 fL (36.4-46.3); Red Blood Count 3.07 M/uL (4.70-6.10); White Blood Count 6.99 K/ul (4.8-10.8)
[2024-11-28 07:13] LABS: Basophils # (auto) 0.03 K/uL (0.00-0.20); Basophils % (auto) 0.4 %; Eosinophils # (auto) 0.43 K/uL (0.00-0.50); Eosinophils % (auto) 6.2 %; Hypochromasia Present; Immature Granulocytes # (auto) 0.03 K/uL (0.01-0.20); Immature Granulocytes % (auto) 0.4 %; Lymphocytes # (auto) 1.59 K/uL (1.20-3.40); Lymphocytes % (auto) 22.7 %; Mean Platelet Volume 9.5 fL (9.4-12.4); Neutrophils # (auto) 4.21 K/uL (1.40-6.50); Neutrophils % (auto) 60.3 %; Platelet Count 209 K/uL (130-400)
[2024-11-28] MEDS ORDERED: Nursing to Pharmacy Communication SCH ×2 (07:15→16:30)
[2024-11-28] MEDS: INSULIN ASPART PER UNIT CHARGE SC SCH (07:27)
--- NOTE | 2024-11-28 07:37 | CT Scan Report ---
EXAM: CT abd pelvis IV con only CLINICAL HISTORY: weight loss, blood loss anemia. TECHNIQUE: Contrast-enhanced CT of the abdomen and pelvis was performed, with the following protocol: axial images with, and reconstructed coronal and sagittal images. 93 ml Optiray 320 Intravenous contrast was administered. One of the following dose reduction techniques was utilized for this exam: Automated exposure control, adjustment of the mA and/or kV according to patient size, and use of iterative reconstruction. CTDI: 12.26 mGy DLP: 653.56 mGy-cm. COMPARISON: 01/19/2024 CT Abdomen and pelvis. FINDINGS: Low Chest: Bilateral basal pleural thickening. Bronchiectasis is associated with fibrotic bibasal bands. The heart appears enlarged. Abdomen: Small hiatal hernia. Liver: Normal in size, shape, and density. Multiple hepatic cysts, the largest in segment IV of 30 x 20mm. Hepatic vasculature and biliary ducts are unremarkable. Gallbladder and Biliary System: The gallbladder is normal in size and shape. No wall thickening, pericholecystic fluid, or gallstones were identified. The common bile duct is normal in caliber without dilation. Pancreas: Pancreatic head, body, and tail are visualized and appear normal in size and density. No pancreatic masses or calcifications were noted. The pancreatic duct is not dilated. Spleen: Normal in size, shape, and density. No splenic lesions or masses were identified. Small lymph nodes associated with stranding of the central abdominal mesenteric fat are suggestive of an inflammatory process. Kidneys and Adrenal Glands: Both kidneys are normal in size, shape, and position. Cortical thickness is within normal limits. Small bilateral renal cysts. No renal calculi or hydronephrosis. Adrenal glands are unremarkable with no evidence of masses or hyperplasia. Pelvis: Urinary Bladder: Normal in contour and wall thickness. No intraluminal lesions identified. Prostate: Normal in size and contour. No focal lesions or masses identified. Seminal Vesicles: Normal in size and appearance. No abnormalities noted. Peritoneal and Retroperitoneal Structures: No free fluid or abnormal fluid collections were identified within the abdomen or pelvis. No lymphadenopathy was noted. Bowel: Diverticula in the colon without signs of acute complication. No evidence of bowel obstruction or wall thickening. Bones and Soft Tissues: Right inguinal hernia of adipose content. Right hydrocele. Bilateral inguinal lymph nodes, reactive appearance. Degenerative changes in the spine. No fractures or abnormal masses were identified. IMPRESSION: 1. Mesenteric panniculitis. 2. Multiple hepatic cysts, the largest in segment IV of 30 x 20 mm. 3. Small bilateral renal cysts. 4. Diverticula in the colon without signs of acute complication. 5. Right inguinal hernia of adipose content. 6. Right, hydrocele. 7. No significant interval changes. Electronically signed by Harpreet Guidry 11-28-2024 07:37 AM
[2024-11-28] MEDS: ESCITALOPRAM OXALATE 10 MG TAB PO SCH (08:02)
[2024-11-28] MEDS: lisinopril 10 MG TAB PO SCH (08:02)
[2024-11-28] MEDS: VERAPAMIL HCL 180 MG TABCR PO SCH (08:02)
--- NOTE | 2024-11-28 09:49 | Gastroenterology Progress Note ---
Date of Service November 28, 2024 Assessment & Plan (1) Anemia: Plan: 84 year old male with history of HTN, gout, T2DM, bladder CA, CKD, hypothyroidism, hypercholesterolemia, hx of CVA with carotid artery stenosis s/p TCAR on ASA/Plavix presenting w/ symptomatic anemia. He denies black/bloody stools but does recall darker stools a few weeks ago. He is noted to be heme-positive and iron deficient. In the setting of unintentional weight loss, he will need evaluation to include CT and endoscopic evaluation to rule out any sinister pathology. CT w/o acute etiology. Maintain NPO status for EGD evaluation this AM. Trend H&H Monitor and document GI output Transfuse PRN per primary team Continue IV PPI Hold ASA Hold Plavix We appreciate assistance in the management of any serological abnormality and corrections to include: hemoglobin >7, INR <2, platelets >50,000, potassium levels >3.5 but <5.3, and sodium levels within 5 points of the reference range prior to endoscopic evaluation. Admission and Anticipated Discharge Date Admission Date: November 27, 2024 Supervising Physician Co-Signing Physician Notes Review of chart patient's symptoms and the need for blood transfusion last evening ,decision was made to proceed with EGD as the most likely source of his issue. If negative can reconsider colonoscopy and timing Subjective Pt was seen and evaluated, chart reviewed. NPO for EGD this AM. CTAP: Mesenteric panniculitis. Multiple hepatic cysts, the largest in segment IV of 30 x 20 mm. Small bilateral renal cysts. Diverticula in the colon without signs of acute complication. Right inguinal hernia of adipose content. Right, hydrocele. Review of Systems Review of Systems: All other findings negative except as noted in HPI. Physical Exam Constitutional: WD/WN, vitals as above Respiratory: normal respiratory effort, lungs clear to auscultation Cardiovascular: Rate/Rhythm: regular rate and regular rhythm Gastrointestinal (Abdomen): normal bowel sounds, soft, nontender, no hepatosplenomegaly Skin: no rashes, warm and dry Results & Data Results & Data Vital Signs (Past 12 Hours) Vital Signs Temp Pulse Pulse Resp BP Pulse Ox O2 Del Method 11/28/24 09:40 Room Air 11/28/24 07:17 97.7 F 74 18 136/64 95 Room Air 11/28/24 07:16 78 11/28/24 02:56 98.2 F 82 18 133/73 96 Room Air 11/28/24 00:43 81 11/27/24 22:39 98.1 F 66 18 172/76 H 92 Room Air Laboratory Results 11/28/24 11/28/24 11/28/24 Range/Units 07:23 05:33 00:40 WBC 6.99 7.26 (4.8-10.8) K/ul RBC 3.07 L 3.05 L (4.70-6.10) M/uL Hgb 7.7 L 7.7 L (14.0-18.0) g/dl Hct 24.3 L 24.0 L (42.0-52.0) % MCV 79.2 L 78.7 L (80.0-100.0) fL MCH 25.1 25.2 (25.0-34.0) pg MCHC 31.7 L 32.1 (32.0-36.0) g/dL RDW Std Deviation 50.2 H 49.2 H (36.4-46.3) fL RDW Coeff of Parvin 17.3 H 17.2 H (11.5-14.5) % Plt Count 209 203 (130-400) K/uL MPV 9.5 8.7 L (9.4-12.4) fL Immature Gran % (Auto) 0.4 % Neut % (Auto) 60.3 % Lymph % (Auto) 22.7 % Quay % (Auto) 10.0 % Eos % (Auto) 6.2 % Baso % (Auto) 0.4 % Reticulocyte % (Auto) (0.50-2.00) % Neut # (Auto) 4.21 (1.40-6.50) K/uL Lymph # (Auto) 1.59 (1.20-3.40) K/uL Quay # (Auto) 0.70 H (0.11-0.59) K/uL Eos # (Auto) 0.43 (0.00-0.50) K/uL Baso # (Auto) 0.03 (0.00-0.20) K/uL Reticulocyte # (0.020-0.100) 10^6/uL Immature Gran # (Auto) 0.03 (0.01-0.20) K/uL Polychromasia Hypochromasia Present Ovalocytes PT (9.0-12.0) Seconds INR (0.9-1.1) Sodium 142 (136-145) mmol/L Potassium 3.9 (3.5-5.1) mmol/L Chloride 114 H (98-107) mmol/L Carbon Dioxide 24 (21-32) mmol/L Anion Gap 4 (3-11) BUN 30 H (6-23) mg/dl Creatinine 0.82 (0.6-1.4) mg/dl Est Cr Clr Drug Dosing 61.6 ml/min eGFR 87.16 BUN/Creatinine Ratio 36.6 H (10-20) Glucose 109 H (70-99(Fasting)) mg/dl POC Glucose 127 H (70-99) mg/dl Calcium 8.6 (8.6-10.3) mg/dl Phosphorus (2.5-4.9) mg/dl Magnesium (1.7-2.4) mg/dl Iron (35-175) mcg/dl Unsaturated IBC (155-355) mcg/dl Transferrin (200-360) mg/dl Ferritin (8-388) ng/ml Total Bilirubin (0.2-1.0) mg/dl AST (13-39) U/L ALT (7-52) U/L Alkaline Phosphatase (34-104) U/L Troponin I High Sens (0-20) pg/ml Total Protein (6.0-8.3) gm/dl Albumin (3.4-5.0) gm/dl Globulin (2.5-4.0) gm/dl Albumin/Globulin Ratio (0.9-2) Lipase (11-82) U/L TSH (0.300-4.500) uIu/ml Urine Color Urine Appearance (Clear) Urine pH (4.5-7.5) Ur Specific Rough [place] Ready (1.000-1.030) Urine Protein (Negative) Urine Glucose (UA) (Negative) Urine Ketones (Negative) Urine Blood (Negative) Urine Nitrite (Negative) Urine Bilirubin (Negative) Urine Urobilinogen (Negative) Ur Leukocyte Esterase (Negative) Adenovirus (PCR) (NotDetected) B. pertussis DNA (PCR) (NotDetected) B.parapertussis DNA PCR (NotDetected) C. pneumoniae DNA (PCR) (NotDetected) Coronavirus OC43 (PCR) (NotDetected) Coronavirus HKU1 (PCR) (NotDetected) Coronavirus 229E (PCR) (NotDetected) SARS-CoV-2 (PCR) (NotDetected) Coronavirus NL63 (PCR) (NotDetected) Human Metapneumovir PCR (NotDetected) Influenza Type A (PCR) (NotDetected) Influenza Type B (PCR) (NotDetected) M. pneumoniae (PCR) (NotDetected) Parainfluenza 1 (PCR) (NotDetected) Parainfluenza 2 (PCR) (NotDetected) Parainfluenza 3 (PCR) (NotDetected) Parainfluenza 4 (PCR) (NotDetected) RSV (PCR) (NotDetected) Entero/Rhino (PCR) (NotDetected) Blood Type Antibody Screen Crossmatch 11/27/24 11/27/24 11/27/24 Range/Units 21:36 18:20 17:54 WBC 7.44 (4.8-10.8) K/ul RBC 3.16 L (4.70-6.10) M/uL Hgb 8.0 L (14.0-18.0) g/dl Hct 25.3 L (42.0-52.0) % MCV 80.1 (80.0-100.0) fL MCH 25.3 (25.0-34.0) pg MCHC 31.6 L (32.0-36.0) g/dL RDW Std Deviation 51.0 H (36.4-46.3) fL RDW Coeff of Parvin 17.2 H (11.5-14.5) % Plt Count 214 (130-400) K/uL MPV 9.1 L (9.4-12.4) fL Immature Gran % (Auto) % Neut % (Auto) % Lymph % (Auto) % Quay % (Auto) % Eos % (Auto) % Baso % (Auto) % Reticulocyte % (Auto) (0.50-2.00) % Neut # (Auto) (1.40-6.50) K/uL Lymph # (Auto) (1.20-3.40) K/uL Quay # (Auto) (0.11-0.59) K/uL Eos # (Auto) (0.00-0.50) K/uL Baso # (Auto) (0.00-0.20) K/uL Reticulocyte # (0.020-0.100) 10^6/uL Immature Gran # (Auto) (0.01-0.20) K/uL Polychromasia Hypochromasia Ovalocytes PT (9.0-12.0) Seconds INR (0.9-1.1) Sodium (136-145) mmol/L Potassium (3.5-5.1) mmol/L Chloride (98-107) mmol/L Carbon Dioxide (21-32) mmol/L Anion Gap (3-11) BUN (6-23) mg/dl Creatinine (0.6-1.4) mg/dl Est Cr Clr Drug Dosing ml/min eGFR BUN/Creatinine Ratio (10-20) Glucose (70-99(Fasting)) mg/dl POC Glucose 109 H 110 H (70-99) mg/dl Calcium (8.6-10.3) mg/dl Phosphorus (2.5-4.9) mg/dl Magnesium (1.7-2.4) mg/dl Iron (35-175) mcg/dl Unsaturated IBC (155-355) mcg/dl Transferrin (200-360) mg/dl Ferritin (8-388) ng/ml Total Bilirubin (0.2-1.0) mg/dl AST (13-39) U/L ALT (7-52) U/L Alkaline Phosphatase (34-104) U/L Troponin I High Sens (0-20) pg/ml Total Protein (6.0-8.3) gm/dl Albumin (3.4-5.0) gm/dl Globulin (2.5-4.0) gm/dl Albumin/Globulin Ratio (0.9-2) Lipase (11-82) U/L TSH (0.300-4.500) uIu/ml Urine Color Urine Appearance (Clear) Urine pH (4.5-7.5) Ur Specific [place] (1.000-1.030) Urine Protein (Negative) Urine Glucose (UA) (Negative) Urine Ketones (Negative) Urine Blood (Negative) Urine Nitrite (Negative) Urine Bilirubin (Negative) Urine Urobilinogen (Negative) Ur Leukocyte Esterase (Negative) Adenovirus (PCR) (NotDetected) B. pertussis DNA (PCR) (NotDetected) B.parapertussis DNA PCR (NotDetected) C. pneumoniae DNA (PCR) (NotDetected) Coronavirus OC43 (PCR) (NotDetected) Coronavirus HKU1 (PCR) (NotDetected) Coronavirus 229E (PCR) (NotDetected) SARS-CoV-2 (PCR) (NotDetected) Coronavirus NL63 (PCR) (NotDetected) Human Metapneumovir PCR (NotDetected) Influenza Type A (PCR) (NotDetected) Influenza Type B (PCR) (NotDetected) M. pneumoniae (PCR) (NotDetected) Parainfluenza 1 (PCR) (NotDetected) Parainfluenza 2 (PCR) (NotDetected) Parainfluenza 3 (PCR) (NotDetected) Parainfluenza 4 (PCR) (NotDetected) RSV (PCR) (NotDetected) Entero/Rhino (PCR) (NotDetected) Blood Type Antibody Screen Crossmatch 11/27/24 11/27/24 11/27/24 Range/Units 14:30 13:01 10:20 WBC 8.37 (4.8-10.8) K/ul RBC 2.70 L (4.70-6.10) M/uL Hgb 6.6 L* (14.0-18.0) g/dl Hct 21.3 L (42.0-52.0) % MCV 78.9 L (80.0-100.0) fL MCH 24.4 L (25.0-34.0) pg MCHC 31.0 L (32.0-36.0) g/dL RDW Std Deviation 49.2 H (36.4-46.3) fL RDW Coeff of Parvin 17.0 H (11.5-14.5) % Plt Count 217 (130-400) K/uL MPV 8.9 L (9.4-12.4) fL Immature Gran % (Auto) % Neut % (Auto) % Lymph % (Auto) % Quay % (Auto) % Eos % (Auto) % Baso % (Auto) % Reticulocyte % (Auto) (0.50-2.00) % Neut # (Auto) (1.40-6.50) K/uL Lymph # (Auto) (1.20-3.40) K/uL Quay # (Auto) (0.11-0.59) K/uL Eos # (Auto) (0.00-0.50) K/uL Baso # (Auto) (0.00-0.20) K/uL Reticulocyte # (0.020-0.100) 10^6/uL Immature Gran # (Auto) (0.01-0.20) K/uL Polychromasia Hypochromasia Ovalocytes PT (9.0-12.0) Seconds INR (0.9-1.1) Sodium (136-145) mmol/L Potassium (3.5-5.1) mmol/L Chloride (98-107) mmol/L Carbon Dioxide (21-32) mmol/L Anion Gap (3-11) BUN (6-23) mg/dl Creatinine (0.6-1.4) mg/dl Est Cr Clr Drug Dosing ml/min eGFR BUN/Creatinine Ratio (10-20) Glucose (70-99(Fasting)) mg/dl POC Glucose (70-99) mg/dl Calcium (8.6-10.3) mg/dl Phosphorus (2.5-4.9) mg/dl Magnesium (1.7-2.4) mg/dl Iron (35-175) mcg/dl Unsaturated IBC (155-355) mcg/dl Transferrin (200-360) mg/dl Ferritin (8-388) ng/ml Total Bilirubin (0.2-1.0) mg/dl AST (13-39) U/L ALT (7-52) U/L Alkaline Phosphatase (34-104) U/L Troponin I High Sens (0-20) pg/ml Total Protein (6.0-8.3) gm/dl Albumin (3.4-5.0) gm/dl Globulin (2.5-4.0) gm/dl Albumin/Globulin Ratio (0.9-2) Lipase (11-82) U/L TSH (0.300-4.500) uIu/ml Urine Color Yellow Urine Appearance Clear (Clear) Urine pH 5.0 (4.5-7.5) Ur Specific Rough [place] Ready 1.029 (1.000-1.030) Urine Protein Negative (Negative) Urine Glucose (UA) Trace H (Negative) Urine Ketones 1+ H (Negative) Urine Blood Negative (Negative) Urine Nitrite Negative (Negative) Urine Bilirubin Negative (Negative) Urine Urobilinogen Negative (Negative) Ur Leukocyte Esterase Negative (Negative) Adenovirus (PCR) (NotDetected) B. pertussis DNA (PCR) (NotDetected) B.parapertussis DNA PCR (NotDetected) C. pneumoniae DNA (PCR) (NotDetected) Coronavirus OC43 (PCR) (NotDetected) Coronavirus HKU1 (PCR) (NotDetected) Coronavirus 229E (PCR) (NotDetected) SARS-CoV-2 (PCR) (NotDetected) Coronavirus NL63 (PCR) (NotDetected) Human Metapneumovir PCR (NotDetected) Influenza Type A (PCR) (NotDetected) Influenza Type B (PCR) (NotDetected) M. pneumoniae (PCR) (NotDetected) Parainfluenza 1 (PCR) (NotDetected) Parainfluenza 2 (PCR) (NotDetected) Parainfluenza 3 (PCR) (NotDetected) Parainfluenza 4 (PCR) (NotDetected) RSV (PCR) (NotDetected) Entero/Rhino (PCR) (NotDetected) Blood Type A Positive Antibody Screen NEGATIVE Crossmatch See Detail 11/27/24 11/27/24 Range/Units 09:56 09:30 WBC 7.43 (4.8-10.8) K/ul RBC 3.11 L (4.70-6.10) M/uL Hgb 7.5 L (14.0-18.0) g/dl Hct 24.6 L (42.0-52.0) % MCV 79.1 L (80.0-100.0) fL MCH 24.1 L (25.0-34.0) pg MCHC 30.5 L (32.0-36.0) g/dL RDW Std Deviation 49.2 H (36.4-46.3) fL RDW Coeff of Parvin 17.1 H (11.5-14.5) % Plt Count 230 (130-400) K/uL MPV 8.9 L (9.4-12.4) fL Immature Gran % (Auto) 0.5 % Neut % (Auto) 65.9 % Lymph % (Auto) 21.4 % Quay % (Auto) 7.1 % Eos % (Auto) 4.6 % Baso % (Auto) 0.5 % Reticulocyte % (Auto) 1.56 (0.50-2.00) % Neut # (Auto) 4.89 (1.40-6.50) K/uL Lymph # (Auto) 1.59 (1.20-3.40) K/uL Quay # (Auto) 0.53 (0.11-0.59) K/uL Eos # (Auto) 0.34 (0.00-0.50) K/uL Baso # (Auto) 0.04 (0.00-0.20) K/uL Reticulocyte # 0.050 (0.020-0.100) 10^6/uL Immature Gran # (Auto) 0.04 (0.01-0.20) K/uL Polychromasia 1+ Hypochromasia Present Ovalocytes 1+ PT 11.9 (9.0-12.0) Seconds INR 1.1 (0.9-1.1) Sodium 141 (136-145) mmol/L Potassium 4.2 (3.5-5.1) mmol/L Chloride 111 H (98-107) mmol/L Carbon Dioxide 22 (21-32) mmol/L Anion Gap 8 (3-11) BUN 44 H (6-23) mg/dl Creatinine 0.87 (0.6-1.4) mg/dl Est Cr Clr Drug Dosing 58.1 ml/min eGFR 85.61 BUN/Creatinine Ratio 50.6 H (10-20) Glucose 160 H (70-99(Fasting)) mg/dl POC Glucose (70-99) mg/dl Calcium 8.5 L (8.6-10.3) mg/dl Phosphorus 2.4 L (2.5-4.9) mg/dl Magnesium 1.6 L (1.7-2.4) mg/dl Iron 34 L (35-175) mcg/dl Unsaturated IBC 329 (155-355) mcg/dl Transferrin 315 (200-360) mg/dl Ferritin 7.7 L (8-388) ng/ml Total Bilirubin 0.3 (0.2-1.0) mg/dl AST 13 (13-39) U/L ALT 12 (7-52) U/L Alkaline Phosphatase 59 (34-104) U/L Troponin I High Sens 5.2 (0-20) pg/ml Total Protein 5.9 L (6.0-8.3) gm/dl Albumin 3.7 (3.4-5.0) gm/dl Globulin 2.2 L (2.5-4.0) gm/dl Albumin/Globulin Ratio 1.7 (0.9-2) Lipase 38 (11-82) U/L TSH 2.804 (0.300-4.500) uIu/ml Urine Color Urine Appearance (Clear) Urine pH (4.5-7.5) Ur Specific Rough And Ready (1.000-1.030) Urine Protein (Negative) Urine Glucose (UA) (Negative) Urine Ketones (Negative) Urine Blood (Negative) Urine Nitrite (Negative) Urine Bilirubin (Negative) Urine Urobilinogen (Negative) Ur Leukocyte Esterase (Negative) Adenovirus (PCR) Not Detected (NotDetected) B. pertussis DNA (PCR) Not Detected (NotDetected) B.parapertussis DNA PCR Not Detected (NotDetected) C. pneumoniae DNA (PCR) Not Detected (NotDetected) Coronavirus OC43 (PCR) Not Detected (NotDetected) Coronavirus HKU1 (PCR) Not Detected (NotDetected) Coronavirus 229E (PCR) Not Detected (NotDetected) SARS-CoV-2 (PCR) Not Detected (NotDetected) Coronavirus NL63 (PCR) Not Detected (NotDetected) Human Metapneumovir PCR Not Detected (NotDetected) Influenza Type A (PCR) Not Detected (NotDetected) Influenza Type B (PCR) Not Detected (NotDetected) M. pneumoniae (PCR) Not Detected (NotDetected) Parainfluenza 1 (PCR) Not Detected (NotDetected) Parainfluenza 2 (PCR) Not Detected (NotDetected) Parainfluenza 3 (PCR) Not Detected (NotDetected) Parainfluenza 4 (PCR) Not Detected (NotDetected) RSV (PCR) Not Detected (NotDetected) Entero/Rhino (PCR) Not Detected (NotDetected) Blood Type Antibody Screen Crossmatch PG Care Time/CCT Total # of Minutes Spent Total Time Spent with Patient: Total time spent is greater than 50% in coordination of care (as documented) at patient's floor/unit and/or counseling patient: Coding Level of Care Code None Diagnoses Anemia D64.9 Anemia type: unspecified type (1) Anemia Anemia type: unspecified type Qualified Code(s): D64.9 - Anemia, unspecified
[2024-11-28] MEDS: SODIUM CHLORIDE 0.9% 500 ML IV SCH (11:31)
[2024-11-28] MEDS ORDERED: ePHEDrine sulfate 50 MG/ML AMP IV PRN (12:02)
--- NOTE | 2024-11-28 12:02 | Anesthesiology Consultation ---
Date of Service November 28, 2024 Assessment & Plan Chart Review Chart Review: Acceptable Risk for Surgery and Patient NOT seen in Pre Admission Testing Consults Requested none ASA ASA4 Proposed Anesthesia Anesthesia Type: MAC Risk / Benefits Reviewed With: PT / POA / Parent / Guardian, Accepts Plan and Informed Consent Obtained History Surgery Operation Date: 11/28/24 17:25 Proposed Procedures p Esophagogastroduodenoscopy Dr. Maxime Swartz MD Height/Weight Height: 5 ft 6 in Weight: 66.1 kg Allergies Allergy/AdvReac Type Severity Reaction Status Date / Time shellfish derived Allergy Intermediate Diarrhea Verified 11/27/24 12:39 Medications Home Medications Medication Instructions Recorded Confirmed Last Taken levothyroxine 25 mcg tablet 25 mcg PO DAILYBB 08/19/19 11/27/24 07/22/24 verapamil 180 mg tablet,extended 180 mg PO QAM 08/19/19 11/27/24 07/24/24 06:00 release metformin 500 mg tablet 1,000 mg PO BID 04/15/21 11/27/24 07/22/24 18:00 aspirin 81 mg tablet,delayed 81 mg PO QAM 01/24/24 11/27/24 07/24/24 06:00 release clopidogrel 75 mg tablet (Plavix) 75 mg PO QAM 07/16/24 11/27/24 07/24/24 06:00 atorvastatin 80 mg tablet 80 mg PO HS #30 tabs 07/22/24 11/27/24 07/24/24 06:00 lisinopril 10 mg tablet 10 mg PO QAM #30 tabs 07/22/24 11/27/24 07/24/24 06:00 escitalopram oxalate 10 mg tablet 10 mg PO DAILY 11/27/24 11/27/24 Unknown mirtazapine 15 mg tablet 7.5 mg PO HS 11/27/24 11/27/24 Unknown omeprazole 20 mg capsule,delayed 20 mg PO DAILY 11/27/24 11/27/24 Unknown release Active Medications Generic Name Dose Route Start Last Admin Trade Name Freq PRN Reason Stop Dose Admin Atorvastatin Calcium 80 mg 11/27/24 21:00 11/27/24 21:47 Atorvastatin 40 Mg Tab PO 12/27/24 20:59 80 mg HS SHAWANDA Administration Escitalopram Oxalate 10 mg 11/28/24 09:00 11/28/24 08:02 Escitalopram Oxalate 10 Mg Tab PO 12/28/24 08:59 10 mg DAILY SHAWANDA Administration Pantoprazole Sodium 40 mg in 10 mls @ 5 mls/min 11/27/24 21:00 11/28/24 08:02 Protonix IV 12/27/24 20:59 5 mls/min BID SHAWANDA Administration Sodium Chloride 500 mls @ 15 mls/hr 11/28/24 07:30 11/28/24 11:31 Nss IV 11/29/24 07:29 15 mls/hr .Q24H SHAWANDA Administration Insulin Aspart 0 units 11/28/24 07:20 11/28/24 07:27 Insulin Aspart Per Unit Charge SC 12/27/24 16:29 Not Given Q6 SHAWANDA Levothyroxine Sodium 25 mcg 11/28/24 06:30 11/28/24 05:52 Levothyroxine Sodium 25 Mcg Tablet PO 12/28/24 06:29 25 mcg DAILYBB SHAWANDA Administration Lisinopril 10 mg 11/28/24 09:00 11/28/24 08:02 Lisinopril 10 Mg Tab PO 12/28/24 08:59 10 mg QAM SHAWANDA Administration Mirtazapine 7.5 mg 11/27/24 21:00 11/27/24 21:47 Mirtazapine Tab 15 Mg Tab PO 12/27/24 20:59 7.5 mg HS SHAWANDA Administration Verapamil HCl 180 mg 11/28/24 09:00 11/28/24 08:02 Verapamil Hcl 180 Mg Tabcr PO 12/28/24 08:59 180 mg QAM SHAWANDA Administration NPO Date Last Intake of Fluids: 11/28/24 Time Last Intake of Fluids: 08:00 Date Last Intake of Solids: 11/26/24 Time Last Intake of Solids: 18:00 Past Medical History Medical History LVH (left ventricular hypertrophy) severe cLVH per 07/10/24 ECHO CKD (chronic kidney disease) History of depression r/t first stroke - no issues currently Hypothyroidism HTN (hypertension) Gout 01/24/24-01/25/24 [facility]; Rx colchicine Diabetes mellitus, type 2 Hx: UTI (urinary tract infection) 01/2024 [facility] admission sepsis 2/2 UTI; resolved Hx of sepsis 2/2 to UTI 01/2024 admission Carotid stenosis 07/09/24 imagin% stenosis of the proximal right ICA and 60% stenosis on the left History of bladder cancer 2010; s/p BCG tx Urinary frequency CVA (cerebral vascular accident) 06/2013 in [place] (CVA vs TIA per chart review) 07/09/24 [facility]: presented with LUE weakness; 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, associated 90% proximal R ICA stenosis, 60% stenosis L; plan for R TCAR; per pt, no residual sx Exercise / Class Metabolic Activity III < 4 Walking/Shop/Light housework Past Family History Family History Mother , age 84 of uncertain cause Hypertension Father , age 64 with tuberculosis Tuberculosis Past Surgical History Surgical History History of bladder surgery Hx of Achilles tendon repair Right Hx of colonoscopy Hx of appendectomy Right TCAR Past Anesthesia History No Hx of Anesthesia Complications and No Family Hx of Anesthesia Complications History of PONV No Hx of PONV and No Hx of Motion Sickness Social History Smoking Status: Never smoker Do You Dip or Chew Tobacco: No Hx Alcohol Use: No Alcohol type: wine alcohol intake frequency: a few times a week Hx Substance Use: No substance use type: does not use Physical Exam Vital Signs Last Vital Signs Temp 36.9 C 11/28/24 11:24 Pulse 68 11/28/24 11:24 Resp 16 11/28/24 11:24 BP 119/56 L 11/28/24 11:24 Pulse Ox 94 11/28/24 11:24 O2 Del Method Room Air 11/28/24 11:24 Constitutional no acute distress and not cachectic ENMT Mouth: + dentition abnormality and + dentures Thyromental Distance: > or= 3.5 Finger Breadths Mallampati Class: II Neck normal visual inspection, trachea midline and + facial hair; neck extension not limited Respiratory normal respiratory effort Auscultation: + diminished lung sounds Cardiovascular Rate/Rhythm: regular rate and regular rhythm Heart Sounds: no murmur Vessels: no carotid bruit Musculoskeletal Spine: normal cervical ROM and no pain with cervical ROM Extremities: extremities normal to inspection; full ROM of extremities Neurologic moves all extremities Motor/Sensory: no sensory deficit Psychiatric Orientation: alert and oriented x 3 Testing Laboratory Results 11/28/24 05:33 11/28/24 05:33 PT 11.9 Seconds (9.0-12.0) 11/27/24 09:30 INR 1.1 (0.9-1.1) 11/27/24 09:30 Urine Color Yellow 11/27/24 10:20 Urine Appearance Clear (Clear) 11/27/24 10:20 Urine pH 5.0 (4.5-7.5) 11/27/24 10:20 Ur Specific [place] 1.029 (1.000-1.030) 11/27/24 10:20 Urine Protein Negative (Negative) 11/27/24 10:20 Urine Glucose (UA) Trace (Negative) H 11/27/24 10:20 Urine Ketones 1+ (Negative) H 11/27/24 10:20 Urine Nitrite Negative (Negative) 11/27/24 10:20 Ur Leukocyte Esterase Negative (Negative) 11/27/24 10:20 Blood Type A Positive 11/27/24 13:01 Antibody Screen NEGATIVE 11/27/24 13:01 11/28/24 07:23 POC Glucose 127 H Electrocardiogram Date: 11/27/24 Findings: + NSR @ (@ 92) Chest X-Ray Date: 11/27/24 Findings: + NAD Echocardiogram Date: 07/10/24 EF: 60% LV Function: normal RWMA: + none Valvular Disease: + no significant valvular disease
--- NOTE | 2024-11-28 13:11 | GI REPORT ---
[facility] Patient: TC JORGE : 1940 Sex at : Male Age: 84 Years Procedure: Upper GI endoscopy Date: 11/28/2024 Attending Physician: Aquilino Swartz MD Referring MD: Amita Barry Md Indications: - Iron deficiency anemia. Difficulty eating Medications: - Monitored Anesthesia Care Complications: - No immediate complications. Estimated Blood Loss: - Estimated blood loss was minimal. Procedure: - The EGD scope was introduced through the mouth and advanced to the second part of the duodenum. - The upper GI endoscopy was accomplished without difficulty. - The patient tolerated the procedure well. Findings: - A medium-sized, fungating mass with no bleeding was found at the gastroesophageal junction, 40 cm from the incisors. The mass was partially obstructing and partially circumferential (involving one-half of the lumen circumference). The epicenter of the tumor was at the gastroesophageal junction. Biopsies were taken with a cold forceps for histology. Estimated blood loss was minimal. - A medium-sized, ulcerated, non-circumferential mass with no bleeding and no stigmata of recent bleeding was found in the cardia. Biopsies were taken with a cold forceps for histology. Estimated blood loss was minimal. - The examined duodenum was normal. Impression: - Partially obstructing esophageal tumor was found at the gastroesophageal junction. Biopsied. 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 Biopsied. - Normal examined duodenum. Recommendation: - Await pathology results. - Soft diet. Procedure Code(s): - 42103, Esophagogastroduodenoscopy, flexible, transoral; with biopsy, single or multiple Diagnosis Code(s): - D49.0, Neoplasm of unspecified behavior of digestive system CPT(R) - 2023 copyright [employer]. All Rights Reserved. The CPT codes, CCI edits and ICD codes generated are intended as suggestions and were generated based on input data. These codes are preliminary and upon director it review may be revised to meet current compliance and payer requirements. The provider is responsible for the final determination of appropriate codes, and modifiers. Aquilino Swartz MD This document has been electronically signed. Note Initiated:11/28/2024 Note Completed:11/28/2024 1:10 PM \\[email or web address]\[email or web address]\[id number]
--- NOTE | 2024-11-28 13:24 | Anesthesiology Progress Note ---
Date of Service November 28, 2024 Anesthesia Post Procedure Vital Signs Vital Signs: Temp Pulse Pulse Pulse Resp BP BP 11/28/24 13:08 82 14 106/66 11/28/24 11:24 36.9 C 68 16 119/56 L 11/28/24 09:40 11/28/24 07:17 36.5 C 74 18 11/28/24 07:16 78 11/28/24 02:56 36.8 C 82 18 11/28/24 00:43 81 11/27/24 22:39 36.7 C 66 18 11/27/24 21:08 36.9 C 88 17 175/80 H 11/27/24 21:00 89 11/27/24 19:29 97 H 22 11/27/24 18:15 102 H 18 11/27/24 16:25 36.7 C 102 H 18 143/75 H 11/27/24 16:07 108 H 11/27/24 15:58 11/27/24 15:55 36.7 C 113 H 16 152/79 H 11/27/24 15:40 37.1 C 113 H 20 142/68 H 11/27/24 15:20 36.8 C 111 H 18 139/76 11/27/24 14:00 108 H 19 11/27/24 14:00 170/89 H 11/27/24 13:48 108 H 22 11/27/24 13:35 106 H 11/27/24 13:31 183/71 H BP Pulse Ox Pulse Ox O2 Del Method O2 Del Method 11/28/24 13:08 99 Room Air 11/28/24 11:24 94 Room Air 11/28/24 09:40 Room Air 11/28/24 07:17 136/64 95 Room Air 11/28/24 07:16 11/28/24 02:56 133/73 96 Room Air 11/28/24 00:43 11/27/24 22:39 172/76 H 92 Room Air 11/27/24 21:08 93 Room Air 11/27/24 21:00 11/27/24 19:29 176/82 H 96 Room Air 11/27/24 18:15 173/91 H 95 Room Air 11/27/24 16:25 96 11/27/24 16:07 11/27/24 15:58 95 Room Air 11/27/24 15:55 96 01/22/25 15:40 11/27/24 15:20 11/27/24 14:00 11/27/24 14:00 11/27/24 13:48 11/27/24 13:35 11/27/24 13:31 Transfer of Care Handoff Completed per policy Notes Mental Status: alert / awake / arousable Patient Amnestic to Procedure: Yes Nausea / Vomiting: adequately controlled Pain: adequately controlled Airway Patency, RR, SpO2: stable & adequate BP & HR: stable & adequate Hydration State: stable & adequate Anesthetic Complications: no major complications apparent
--- NOTE | 2024-11-28 14:07 | Communication Note ---
Date of Service: November 28, 2024 EGD Fungating partially submucosal mass at the distal esophagus cardia. Suspicious for adenocarcinoma of the stomach multiple biopsies performed. CT did show some nonspecific lymph nodes. Await biopsies. Probably probable discharge today. Follow-up Monday when I expect biopsies to be back. If adenocarcinoma confirm PET scan. And hematology oncology referral
[2024-11-28] MEDS: PHENYLEPHRINE HCL 10 MG/ML VIAL ONE (14:25)
[2024-11-28] MEDS: ONDANSETRON INJ 2 MG/ML 2 ML VIAL ONE (14:25)
[2024-11-28] MEDS: LIDOCAINE 2% 2 ML VIAL/AMP(20MG/ML) INFIL ONE (14:25)
[2024-11-28] MEDS: PROPOFOL IV EMULSION 10 MG/ML 20 ML VIAL IV ONE (14:25)
[2024-11-28 16:01] VITALS: BP 128/65; PULSE 63; RESP 18; TEMP 98.2; O2SAT 93
[2024-11-28] MEDS ORDERED: INSULIN ASPART PER UNIT CHARGE SC SCH (16:45)
--- NOTE | 2024-12-03 12:24 | Discharge Summary ---
Discharge Summary Date of Service November 28, 2024 Principal Dx & Hospital Course #1 = Principal Diagnosis (1) Anemia: (2) Dizziness: (3) Hypothyroid: (4) Diabetes: Plan Vernon torres 84M with a PMHx of HTN, gout, DMII, bladder CA, CKD, hypothyroidism, hypercholesterolemia, hx of CVA with carotid artery stenosis s/p TCAR who presents to the ER with dizziness and near syncope. New found anemia with suspect GI bleed (recent labs with [facility] PCP did not include CBC). Admitted for GI evaluation and further workup. #Anemia/Suspect GI bleed/ unintentional weight loss Hgb 7.5 on arrival, baseline ~13-14, with + heme occult in ED. 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 Resolved after transfusion #Hx of CVA/HTN Try to continue ASA and plavic because of recent TCAR Continue lisinopril and verapamil #Diabetes Type 2 continue home metformin. A1c 07/2024: 8.0, recheck in AM Depression - continue Lexapro and mirtazapine Hypothyroidism - TSH WNL 11/2024. Continue Synthroid I updated Mr. Cao and his and discussed the endoscopy findings in the afternoon prior to discharge. 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 Woke up this morning and felt dizzy, tried to hydrated. Took a shower and then was lightheaded and fell on night stand and broke it. Hx of stroke in July and thought it feel similar but no focal weakness, or numbness. Has some residual left sided weakness, but does not use assistive devices and has been working with PT outpatient. Reports has felt different since TCAR in july. Denies abdominal pain but reports increase bloating/gas since surgery. Reports tongue has been tasting bad from gas, rapid decrease in appetite. Heartburn symptoms are new for him. Everything feels like he is eating sand/faye. Has lost 30 lbs unintentionally. Reports feeling down the last week, increased depression after stroke. Goes to PT twice a week. Reports lightheadedness and dizziness with PT. Almost feel at therapy on Monday. Prior colonoscopy 8-10 years, with [facility]. Urges for stools but is mostly gas. No black tarry stools or melena noted. Recently started Miralax for constipation without relief. updated at bedside. Patient confirms he is a full code. Reports recent labs done at PCP with PS - did not include CBC ED course: NSS 1L Mag 1g IV Protonix 40mg IV x1 Discharge Exam PHYSICAL EXAMINATION Last 24h vital signs reviewed, see documentation in flowsheet General: comfortable appearing, no distress, pale appearing HEENT: Normocephalic, atraumatic, pupils round and equal, sclerae anicteric, no conjunctival injection, moist mucus membranes Lungs: Normal respiratory effort. Clear to auscultation bilaterally. No RRW Heart: Regular rate and rhythm, no murmurs. No JVD Abdomen: Soft, nontender, nondistended. Bowel sounds present. Extremities: Warm, dry, well-perfused. No extremity edema. Neuro: Alert and oriented x 4, face symmetric, moves 4 extremities well Psych: Normal affect and behavior Discharge Plan Discharge Items Patient Disposition: Home - Self-Care Reason For Visit: ANEMIA, ?GIB Discharge Diagnosis: Iron deficiency anemia, Esophageal mass Condition on Discharge: Fair Activity: Resume your previous activity Non-emergency contact: Primary Care Provider and Oncologist Call non-emergency contact if: you have any medication questions and your symptoms worsen Follow-up/Referrals: Delbert Guzmán MD [Primary Care Provider] - 12/02/24 1:00 pm (1245 arrival for [address] Phillips) Diet: Regular Addtl Attending Provider Instructions: You were treated with a blood transfusion for severe anemia Unfortunately there was an esophageal mass seen on endoscopy that is very suspicious for esophageal cancer The daycare manager will call you next week with the biopsy results We are making a referral to medical oncology. The clinic should call you to schedule once the biopsy results are available If you are having swallowing difficulty, try soft foods only It is a good idea to have a protein supplement twice a day - whey powder shake or high protein bar, boost or ensure are good ideas Take an iron supplement every other day The weight loss and the rash are explained by the esophageal mass It was a pleasure taking care of you in the hospital, Amita Barry MD Pending Studies at Discharge: Yes (pathology) Stand-Alone Forms: My [facility], Smoking Cessation Medications and DC Order Prescriptions: New pantoprazole 40 mg tablet,delayed release (DR/EC) 40 mg PO BID Qty: 60 0RF ferrous sulfate 325 mg (65 mg iron) tablet 325 mg PO Q OTHER DAY Qty: 60 0RF Rx Instructions: buy over the counter Continued verapamil 180 mg tablet extended release 180 mg PO QAM levothyroxine 25 mcg tablet 25 mcg PO DAILYBB metformin 500 mg tablet 1,000 mg PO BID aspirin 81 mg Tablet,Delayed Release (Dr/Ec) 81 mg PO QAM lisinopril 10 mg Tablet 10 mg PO QAM Qty: 30 0RF atorvastatin 80 mg tablet 80 mg PO HS Qty: 30 3RF Rx Instructions: Take 80mg daily at night. clopidogrel [Plavix] 75 mg tablet 75 mg PO QAM mirtazapine 15 mg tablet 7.5 mg PO HS escitalopram oxalate 10 mg tablet 10 mg PO DAILY Discontinued omeprazole 20 mg capsule,delayed release(DR/EC) 20 mg PO DAILY Discharge Orders: Discharge Order (Routine); Ordered 11/28/24 Ordered By: Amita Vallecillo/Other Patient Handouts: Ferrous Sulfate Oral Tablet, Pantoprazole Delayed Release Oral Tablet Admission Data Admit Date/Time: 11/27/24 14:09 Attending Provider: Amita Barry Admit Provider: Ricardo Artis Primary Care Provider: Delbert Guzmán Other Providers: Aquilino Swartz Other Interventions: Discharge Summary Assessment (RN) Last Done: 01/23/25 16:12 Hospital Stay Data Consultations 11/27/24 12:50 ED Decision to Admit Stat 11/27/24 13:38 Consult Gastroenterology Routine Procedures Performed Operation Date: 11/28/24 17:25 Actual Procedures p EGD Biopsy Cytology - Aquilino Swartz MD Diagnostic Imagining Performed 11/27/24 09:51 CT angio head w con Stat CT angio neck with con Stat CT head/brain wo con Stat 11/28/24 06:00 CT Abd and Pelvis [CT abd pelvis IV con only] Routine Pending Results Patient Have Any Pending Studies at Discharge: Yes (pathology) Discharge Instructions Given to Patient (Per Discharging Provider) You were treated with a blood transfusion for severe anemia Unfortunately there was an esophageal mass seen on endoscopy that is very suspicious for esophageal cancer The daycare manager will call you next week with the biopsy results We are making a referral to medical oncology. The clinic should call you to schedule once the biopsy results are available If you are having swallowing difficulty, try soft foods only It is a good idea to have a protein supplement twice a day - whey powder shake or high protein bar, boost or ensure are good ideas Take an iron supplement every other day The weight loss and the rash are explained by the esophageal mass It was a pleasure taking care of you in the hospital, Amita Barry MD Total Time Total Time Spent Total Time Spent (In Minutes): I personally spent: 45 minutes today on clinical care activities including: reviewing chart notes and vital signs reviewing labs reviewing studies discussion with showroom sales consultant(s) - gastroenterology discussion with day care worker - oncology referral examining and counseling the patient - 2 bedside visits counseling the patient's family writing orders writing prescriptions, discharge instructions documentation Coding Level of Care Code 69828 INP/OBS DISCH >30 MIN Diagnoses Anemia D64.9 Dizziness R42 Hypothyroid E03.9 Diabetes E11.9
== END 2024-11-28 17:19 | disposition home or self-care (01) | DRG 375 ==
LOC: ED 09:06 → SUATTDRO 14:09 → EDINP 14:09 → 2N 15:11

== ENCOUNTER 2025-01-25 19:54 | Observation (INO) ==
--- NOTE | 2025-01-25 20:02 | Emergency Department Note ---
Impression & Plan Pneumonia, Fever, Vomiting, Delirium ED Provider Note NAME: TC JORGE AGE: 84 SEX: M : 1940 ARRIVES VIA: Ambulance INFORMANT: Patient, ED PROVIDER(S): Juanjo Amaya DO CHIEF COMPLAINT: Vomiting HPI: The patient is an 84-year-old male who presented to the emergency department for an evaluation of fever and vomiting. The patient has a history of urosepsis in the past. He also has a history of bladder cancer. The patient started having symptoms over the course of the last few weeks. The patient started having more vomiting today and was noted to have a fever. His family called 911. The patient denies having any chest pain. He denies having any abdominal pain. ROS: See above HPI for pertinent positives & negatives. A total of 10 systems reviewed and were otherwise negative. PAST MEDICAL HISTORY: See Below PAST SURGICAL HISTORY: See Below FAMILY HISTORY: See Below SOCIAL HISTORY: See Below HOME MEDICATIONS: See Below ALLERGIES: See Below VITALS: See Below PHYSICAL EXAMINATION: GENERAL: The patient is awake and alert. He is somewhat anxious appearing. He is actively vomiting. EYES: The conjunctivae are clear. The pupils are round and reactive. EARS, NOSE, MOUTH AND THROAT: The nose is without any evidence of any deformity. NECK: The neck is nontender and supple. RESPIRATORY: Diminished breath sounds are noted throughout with scattered rhonchi. CARDIOVASCULAR: Regular rate and rhythm noted there no murmurs rubs or gallops normal S1 normal S2. GASTROINTESTINAL: The abdomen is soft and nondistended. There is no tenderness guarding or rigidity. MUSCULOSKELETAL/EXTREMITIES: There is no evidence of gross deformity full range of motion is noted in the hips and shoulders. SKIN: Skin is warm and dry. There is no pedal edema. Pulses are symmetric in both feet. NEUROLOGIC: Patient is awake alert and oriented x3 MEDICAL DECISION MAKING: The patient is an 84-year-old male who presented to the emergency department for an evaluation of fever and vomiting. The patient has a history of urinary tract infection of the past. He has a history of bladder cancer. He received chemotherapy 2 weeks ago. The patient was febrile upon arrival. He was actively vomiting. Initial blood pressure was elevated. Once he was treated with Zofran his blood pressure did calm down. The patient was further treated with IV fluids and IV antibiotics. The patient was feeling much better on reevaluation. Given his laboratory studies and vital signs I do feel that he would be a better candidate for inpatient management. I discussed his condition with the on-call [facility] hospitalist. Triage Nursing notes reviewed. Prior medical records reviewed Vital Signs: reviewed and remarkable for initial fever. Differential diagnosis: Gastroenteritis, food borne illness, infections, appendicitis, diverticulitis, inflammatory bowel disease, obstruction, GI bleed, biliary pathology, volvulus, as well as other pathologies. ER treatment provided: See below Diagnostics interpreted by me: ECG: EKG was obtained in the emergency department. My interpretation is normal sinus rhythm at 85 bpm. There is no ectopy. There is no acute ST segment abnormalities noted. This was compared to a tracing from January 09, 2025. No changes were noted. Cardiac Monitoring: An order was placed for continuous cardiac monitoring. The monitor shows a rate of 70 bpm with sinus rhythm. Laboratory studies: As stated above and show below. Imaging studies: See below. Radiographic imaging was reviewed by myself Consultation(s): I discussed this case with Dr. Pressley who is on-call for the [facility] hospitalist group. ED COURSE: Procedures: none Critical Care: I have personally spent greater than 35 minutes of critical care time in the direct management of this patient. This includes bedside care, interpretation of diagnostic studies, and testing, discussion with consultants, patient, and family members, and other required patient management activities. This 35 minutes is in excess of all separately billable procedures. Past Med/Surg History Problem List (Updated 01/25/25 @ 22:46 by Juanjo Amaya DO) Delirium (Acute) Vomiting (Acute) Fever (Acute) Pneumonia (Acute) On clopidogrel therapy (Acute) Iron deficiency (Acute) GIB (gastrointestinal bleeding) (Acute) Anemia (Acute) Chest pressure Chest pain (Acute) Bilateral carotid artery disease HTN (hypertension) (Acute) Gout Hyperglycemia due to type 2 diabetes mellitus Acute foot pain (Acute) TIA (transient ischemic attack) CVA vs TIA 2012 History of CVA (cerebrovascular accident) (Acute) 07/09/24 Numbness and tingling of right arm (Acute) Vertigo Hypothyroid Hypercholesteremia Diabetes Kidney disease Upper extremity neuropathy (Acute 10/06/13) Occipital neuralgia (Acute) Left ear injury (Acute) Headache (Acute) Stomach problems (Chronic) Urinary problem (Chronic) Medical History Weight loss H/O transfusion of packed red blood cells Renal cyst Hepatic cyst LVH (left ventricular hypertrophy) severe cLVH per 07/10/24 ECHO CKD (chronic kidney disease) History of depression r/t first stroke - no issues currently Hypothyroidism HTN (hypertension) Gout 01/24/24-01/25/24 [facility]; Rx colchicine Diabetes mellitus, type 2 Hx: UTI (urinary tract infection) 01/2024 [facility] admission sepsis / UTI; resolved Hx of sepsis 12/08 to UTI 01/2024 admission Carotid stenosis 07/09/24 imagin% stenosis of the proximal right ICA and 60% stenosis on the left History of bladder cancer 2010; s/p BCG tx Urinary frequency CVA (cerebral vascular accident) 06/2013 in [place] (CVA vs TIA per chart review) 07/09/24 [facility]: presented with LUE weakness; 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, associated 90% proximal R ICA stenosis, 60% stenosis L; plan for R TCAR; per pt, no residual sx Surgical History H/O endoscopy H/O transcarotid artery revascularization (TCAR) History of transcarotid artery revascularization (TCAR) 07/24/24 History of bladder surgery Hx of Achilles tendon repair Right Hx of colonoscopy Hx of appendectomy Family History Mother , age 84 of uncertain cause Hypertension Father , age 64 with tuberculosis Tuberculosis Social History Smoking Status: Former smoker Tobacco Type: Cigarettes Second Hand Exposure: No; Do You Dip or Chew Tobacco: No; Hx Alcohol Use: No Hx Substance Use: No Preferred Language: Senegalese Communication Ability: Effective Reservation Agent Required: No Beliefs That Will Affect Care: None Current Living Situation: Spouse Current Living Situation Comment: [facility] with at [facility]. 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 Feels Safe at Home: Yes Assistive Devices: None Allergies Allergies Allergy/AdvReac Type Severity Reaction Status Date / Time shellfish derived Allergy Intermediate Diarrhea Verified 01/22/25 08:02 Home Meds Home Medications Medication Instructions Recorded Confirmed levothyroxine 25 mcg tablet 25 mcg PO DAILYBB 08/19/19 01/22/25 verapamil 180 mg tablet,extended 180 mg PO QAM 08/19/19 01/22/25 release metformin 500 mg tablet 1,000 mg PO BID 04/15/21 01/22/25 aspirin 81 mg tablet,delayed 81 mg PO QAM 01/24/24 01/22/25 release clopidogrel 75 mg tablet (Plavix) 75 mg PO QAM 07/16/24 01/22/25 escitalopram oxalate 10 mg tablet 10 mg PO DAILY 11/27/24 01/22/25 mirtazapine 15 mg tablet 7.5 mg PO HS 11/27/24 01/22/25 lisinopril 5 mg tablet 5 mg PO DAILY 01/09/25 01/22/25 ondansetron 8 mg disintegrating 8 mg PO Q8 PRN Nausea 01/09/25 01/22/25 tablet Previous Rx's Medication Instructions Recorded atorvastatin 80 mg tablet 80 mg PO HS #30 tabs 07/22/24 ferrous sulfate 325 mg (65 mg 325 mg PO Q OTHER DAY iron 11/28/24 iron) tablet deficiency #60 tabs pantoprazole 40 mg tablet,delayed 40 mg PO BID #60 tabs 11/28/24 release Results & Data (ED) Vital Signs Vital Signs - 24 hr 01/25/25 19:58 01/25/25 20:13 01/25/25 20:18 Temperature 39.5 C H Temperature Source Oral Pulse Rate 100 H 87 85 Pulse Rate [Left Apical] Pulse Rate from SpO2 Sensor Respiratory Rate 20 23 Respiratory Effort / Characteristics Non-Labored Spontaneous Respiratory Depth Normal Respiratory Pattern Regular Blood Pressure 197/120 H Blood Pressure [Right Arm] Blood Pressure Mean 145 Blood Pressure Mean [Right Arm] Pulse Oximetry 91 Oxygen Delivery Method Room Air Sepsis Recent Fever Within 48 Hours Yes Sepsis New/Unexplained Change in Mental Status No Sepsis Action Taken by Nursing No Action Required 01/25/25 20:30 01/25/25 20:36 01/25/25 21:00 Temperature Temperature Source Pulse Rate 83 Pulse Rate [Left Apical] Pulse Rate from SpO2 Sensor Respiratory Rate 22 Respiratory Effort / Characteristics Respiratory Depth Respiratory Pattern Blood Pressure 156/75 H 118/50 L Blood Pressure [Right Arm] Blood Pressure Mean 113 76 Blood Pressure Mean [Right Arm] Pulse Oximetry Oxygen Delivery Method Sepsis Recent Fever Within 48 Hours Sepsis New/Unexplained Change in Mental Status Sepsis Action Taken by Nursing 01/25/25 21:12 01/25/25 21:30 01/25/25 21:48 Temperature Temperature Source Pulse Rate 79 79 74 Pulse Rate [Left Apical] Pulse Rate from SpO2 Sensor Respiratory Rate 19 15 Respiratory Effort / Characteristics Respiratory Depth Respiratory Pattern Blood Pressure 117/55 L Blood Pressure [Right Arm] Blood Pressure Mean 75 Blood Pressure Mean [Right Arm] Pulse Oximetry Oxygen Delivery Method Sepsis Recent Fever Within 48 Hours Sepsis New/Unexplained Change in Mental Status Sepsis Action Taken by Nursing 01/25/25 22:14 01/25/25 22:30 01/25/25 22:30 Temperature 37.1 C Temperature Source Oral Pulse Rate 67 Pulse Rate [Left Apical] 74 Pulse Rate from SpO2 Sensor Respiratory Rate 21 18 Respiratory Effort / Characteristics Non-Labored Spontaneous Respiratory Depth Normal Respiratory Pattern Regular Blood Pressure 108/50 L 108/50 L Blood Pressure [Right Arm] 118/67 Blood Pressure Mean 69 73 Blood Pressure Mean [Right Arm] 84 Pulse Oximetry 96 94 Oxygen Delivery Method Room Air Room Air Sepsis Recent Fever Within 48 Hours Sepsis New/Unexplained Change in Mental Status Sepsis Action Taken by Nursing 01/25/25 22:30 01/25/25 22:30 01/25/25 22:30 Temperature Temperature Source Pulse Rate Pulse Rate [Left Apical] Pulse Rate from SpO2 Sensor Respiratory Rate Respiratory Effort / Characteristics Respiratory Depth Respiratory Pattern Blood Pressure 108/50 L 108/50 L 108/50 L Blood Pressure [Right Arm] Blood Pressure Mean 73 73 73 Blood Pressure Mean [Right Arm] Pulse Oximetry Oxygen Delivery Method Sepsis Recent Fever Within 48 Hours Sepsis New/Unexplained Change in Mental Status Sepsis Action Taken by Nursing 01/25/25 22:30 01/25/25 22:30 01/25/25 22:30 Temperature Temperature Source Pulse Rate Pulse Rate [Left Apical] Pulse Rate from SpO2 Sensor Respiratory Rate Respiratory Effort / Characteristics Respiratory Depth Respiratory Pattern Blood Pressure 108/50 L 108/50 L 108/50 L Blood Pressure [Right Arm] Blood Pressure Mean 73 73 73 Blood Pressure Mean [Right Arm] Pulse Oximetry Oxygen Delivery Method Sepsis Recent Fever Within 48 Hours Sepsis New/Unexplained Change in Mental Status Sepsis Action Taken by Nursing 01/25/25 22:30 01/25/25 22:30 01/25/25 22:30 Temperature Temperature Source Pulse Rate Pulse Rate [Left Apical] Pulse Rate from SpO2 Sensor Respiratory Rate Respiratory Effort / Characteristics Respiratory Depth Respiratory Pattern Blood Pressure 108/50 L 108/50 L 108/50 L Blood Pressure [Right Arm] Blood Pressure Mean 73 73 73 Blood Pressure Mean [Right Arm] Pulse Oximetry Oxygen Delivery Method Sepsis Recent Fever Within 48 Hours Sepsis New/Unexplained Change in Mental Status Sepsis Action Taken by Nursing 01/25/25 22:30 01/25/25 22:30 01/25/25 22:30 Temperature Temperature Source Pulse Rate Pulse Rate [Left Apical] Pulse Rate from SpO2 Sensor Respiratory Rate Respiratory Effort / Characteristics Respiratory Depth Respiratory Pattern Blood Pressure 108/50 L 108/50 L 108/50 L Blood Pressure [Right Arm] Blood Pressure Mean 73 73 73 Blood Pressure Mean [Right Arm] Pulse Oximetry Oxygen Delivery Method Sepsis Recent Fever Within 48 Hours Sepsis New/Unexplained Change in Mental Status Sepsis Action Taken by Nursing 01/25/25 22:30 01/25/25 22:45 01/25/25 22:45 Temperature Temperature Source Pulse Rate Pulse Rate [Left Apical] 64 Pulse Rate from SpO2 Sensor Respiratory Rate 16 Respiratory Effort / Characteristics Non-Labored Non-Labored Respiratory Depth Normal Normal Respiratory Pattern Blood Pressure 108/50 L Blood Pressure [Right Arm] 108/50 L Blood Pressure Mean 73 Blood Pressure Mean [Right Arm] 69 Pulse Oximetry 94 Oxygen Delivery Method Room Air Sepsis Recent Fever Within 48 Hours Sepsis New/Unexplained Change in Mental Status Sepsis Action Taken by Nursing 01/25/25 22:45 01/25/25 22:48 01/25/25 22:51 Temperature Temperature Source Pulse Rate 66 65 Pulse Rate [Left Apical] Pulse Rate from SpO2 Sensor 66 65 Respiratory Rate 17 15 Respiratory Effort / Characteristics Respiratory Depth Respiratory Pattern Blood Pressure Blood Pressure [Right Arm] Blood Pressure Mean Blood Pressure Mean [Right Arm] Pulse Oximetry 94 94 Oxygen Delivery Method Room Air Sepsis Recent Fever Within 48 Hours Sepsis New/Unexplained Change in Mental Status Sepsis Action Taken by Nursing 01/25/25 22:54 01/25/25 23:00 01/25/25 23:00 Temperature Temperature Source Pulse Rate 68 Pulse Rate [Left Apical] Pulse Rate from SpO2 Sensor 68 Respiratory Rate 16 Respiratory Effort / Characteristics Respiratory Depth Respiratory Pattern Blood Pressure 110/48 L 110/48 L Blood Pressure [Right Arm] Blood Pressure Mean 74 74 Blood Pressure Mean [Right Arm] Pulse Oximetry 94 Oxygen Delivery Method Sepsis Recent Fever Within 48 Hours Sepsis New/Unexplained Change in Mental Status Sepsis Action Taken by Nursing 01/25/25 23:00 01/25/25 23:00 01/25/25 23:00 Temperature Temperature Source Pulse Rate Pulse Rate [Left Apical] Pulse Rate from SpO2 Sensor Respiratory Rate Respiratory Effort / Characteristics Respiratory Depth Respiratory Pattern Blood Pressure 110/48 L 110/48 L 110/48 L Blood Pressure [Right Arm] Blood Pressure Mean 74 74 74 Blood Pressure Mean [Right Arm] Pulse Oximetry Oxygen Delivery Method Sepsis Recent Fever Within 48 Hours Sepsis New/Unexplained Change in Mental Status Sepsis Action Taken by Nursing 01/25/25 23:00 01/25/25 23:00 01/25/25 23:00 Temperature Temperature Source Pulse Rate Pulse Rate [Left Apical] Pulse Rate from SpO2 Sensor Respiratory Rate Respiratory Effort / Characteristics Respiratory Depth Respiratory Pattern Blood Pressure 110/48 L 110/48 L 110/48 L Blood Pressure [Right Arm] Blood Pressure Mean 74 74 74 Blood Pressure Mean [Right Arm] Pulse Oximetry Oxygen Delivery Method Sepsis Recent Fever Within 48 Hours Sepsis New/Unexplained Change in Mental Status Sepsis Action Taken by Nursing 01/25/25 23:00 01/25/25 23:00 01/25/25 23:00 Temperature Temperature Source Pulse Rate Pulse Rate [Left Apical] Pulse Rate from SpO2 Sensor Respiratory Rate Respiratory Effort / Characteristics Respiratory Depth Respiratory Pattern Blood Pressure 110/48 L 110/48 L 110/48 L Blood Pressure [Right Arm] Blood Pressure Mean 74 74 74 Blood Pressure Mean [Right Arm] Pulse Oximetry Oxygen Delivery Method Sepsis Recent Fever Within 48 Hours Sepsis New/Unexplained Change in Mental Status Sepsis Action Taken by Nursing 01/25/25 23:00 01/25/25 23:00 01/25/25 23:03 Temperature Temperature Source Pulse Rate 68 Pulse Rate [Left Apical] Pulse Rate from SpO2 Sensor 68 Respiratory Rate 14 Respiratory Effort / Characteristics Respiratory Depth Respiratory Pattern Blood Pressure 110/48 L 110/48 L Blood Pressure [Right Arm] Blood Pressure Mean 74 74 Blood Pressure Mean [Right Arm] Pulse Oximetry 96 Oxygen Delivery Method Sepsis Recent Fever Within 48 Hours Sepsis New/Unexplained Change in Mental Status Sepsis Action Taken by Nursing 01/25/25 23:12 01/25/25 23:21 01/25/25 23:24 Temperature Temperature Source Pulse Rate 66 65 64 Pulse Rate [Left Apical] Pulse Rate from SpO2 Sensor 66 65 64 Respiratory Rate 15 16 13 Respiratory Effort / Characteristics Respiratory Depth Respiratory Pattern Blood Pressure Blood Pressure [Right Arm] Blood Pressure Mean Blood Pressure Mean [Right Arm] Pulse Oximetry 95 95 95 Oxygen Delivery Method Sepsis Recent Fever Within 48 Hours Sepsis New/Unexplained Change in Mental Status Sepsis Action Taken by Nursing 01/25/25 23:30 01/25/25 23:30 01/25/25 23:30 Temperature Temperature Source Pulse Rate Pulse Rate [Left Apical] Pulse Rate from SpO2 Sensor Respiratory Rate Respiratory Effort / Characteristics Respiratory Depth Respiratory Pattern Blood Pressure 102/49 L 102/49 L 102/49 L Blood Pressure [Right Arm] Blood Pressure Mean 74 74 74 Blood Pressure Mean [Right Arm] Pulse Oximetry Oxygen Delivery Method Sepsis Recent Fever Within 48 Hours Sepsis New/Unexplained Change in Mental Status Sepsis Action Taken by Nursing 01/25/25 23:30 01/25/25 23:30 01/25/25 23:30 Temperature Temperature Source Pulse Rate Pulse Rate [Left Apical] Pulse Rate from SpO2 Sensor Respiratory Rate Respiratory Effort / Characteristics Respiratory Depth Respiratory Pattern Blood Pressure 102/49 L 102/49 L 102/49 L Blood Pressure [Right Arm] Blood Pressure Mean 74 74 74 Blood Pressure Mean [Right Arm] Pulse Oximetry Oxygen Delivery Method Sepsis Recent Fever Within 48 Hours Sepsis New/Unexplained Change in Mental Status Sepsis Action Taken by Nursing 01/25/25 23:33 01/25/25 23:45 01/25/25 23:48 Temperature Temperature Source Pulse Rate 66 66 Pulse Rate [Left Apical] Pulse Rate from SpO2 Sensor 66 66 Respiratory Rate 16 16 Respiratory Effort / Characteristics Non-Labored Respiratory Depth Normal Respiratory Pattern Blood Pressure Blood Pressure [Right Arm] Blood Pressure Mean Blood Pressure Mean [Right Arm] Pulse Oximetry 95 94 Oxygen Delivery Method Sepsis Recent Fever Within 48 Hours Sepsis New/Unexplained Change in Mental Status Sepsis Action Taken by [facility] Medications Current Medication List: was personally reviewed by me Laboratory Data Attestation: I reviewed the patient's lab results. 01/25/25 20:09 01/25/25 20:09 Lab Results 01/25/25 01/25/25 Range/Units 20:09 20:52 WBC 20.04 H (4.8-10.8) K/ul RBC 4.08 L (4.70-6.10) M/uL Hgb 11.7 L (14.0-18.0) g/dl Hct 36.0 L (42.0-52.0) % MCV 88.2 (80.0-100.0) fL MCH 28.7 (25.0-34.0) pg MCHC 32.5 (32.0-36.0) g/dL RDW Std Deviation 76.9 H (36.4-46.3) fL RDW Coeff of Parvin 24.3 H (11.5-14.5) % Plt Count 141 (130-400) K/uL MPV 10.3 (9.4-12.4) fL Immature Gran % (Auto) 4.2 % Neut % (Auto) 88.7 % Lymph % (Auto) 3.1 % Irion % (Auto) 3.2 % Eos % (Auto) 0.3 % Baso % (Auto) 0.5 % Neut # (Auto) 17.74 H (1.40-6.50) K/uL Lymph # (Auto) 0.63 L (1.20-3.40) K/uL Irion # (Auto) 0.65 H (0.11-0.59) K/uL Eos # (Auto) 0.06 (0.00-0.50) K/uL Baso # (Auto) 0.11 (0.00-0.20) K/uL Immature Gran # (Auto) 0.85 H (0.01-0.20) K/uL Absolute Nucleated RBC 0.04 (0.00-0.12) K/uL Nucleated RBC % (auto) 0.2 % Dohle Bodies 1+ Polychromasia 1+ Anisocytosis Present Tear Drop Cells 1+ Ovalocytes 1+ Acanthocytes (Spur) 1+ PT 12.0 (9.0-12.0) Seconds INR 1.1 (0.9-1.1) APTT 29 (21-31) Seconds PTT Ratio 1.1 VBG pH 7.44 H (7.36-7.41) VBG pCO2 32 L (38-50) mmHg VBG pO2 59 mmHg VBG HCO3 22 mmol/L VBG O2 Saturation 90.8 % VBG Base Excess -1.6 mEq/L Sodium 134 L (136-145) mmol/L Potassium 4.1 (3.5-5.1) mmol/L Chloride 106 (98-107) mmol/L Carbon Dioxide 21 (21-32) mmol/L Anion Gap 7 (3-11) BUN 20 (6-23) mg/dl Creatinine 0.83 (0.6-1.4) mg/dl Est Cr Clr Drug Dosing 60.9 ml/min eGFR 86.84 BUN/Creatinine Ratio 24.1 H (10-20) Glucose 159 H (70-99(Fasting)) mg/dl Lactate 1.5 (0.4-2.0) mmol/L Calcium 8.5 L (8.6-10.3) mg/dl Magnesium 1.6 L (1.7-2.4) mg/dl Total Bilirubin 0.7 (0.2-1.0) mg/dl Direct Bilirubin 0.2 (0-0.2) mg/dl AST 21 (13-39) U/L ALT 17 (7-52) U/L Alkaline Phosphatase 137 H (34-104) U/L Troponin I High Sens 16.7 (0-20) pg/ml B-Natriuretic Peptide 306 H (0-100) pg/ml Total Protein 6.4 (6.0-8.3) gm/dl Albumin 3.8 (3.4-5.0) gm/dl Procalcitonin 0.11 (0-0.5) ng/ml Urine Color Yellow Urine Appearance Clear (Clear) Urine pH 5.0 (4.5-7.5) Ur Specific [place] 1.018 (1.000-1.030) Urine Protein 1+ H (Negative) Urine Glucose (UA) Negative (Negative) Urine Ketones 1+ H (Negative) Urine Blood 2+ H (Negative) Urine Nitrite Negative (Negative) Urine Bilirubin Negative (Negative) Urine Urobilinogen Negative (Negative) Ur Leukocyte Esterase Negative (Negative) Urine WBC (Auto) 0-5 (0-5) /hpf Urine RBC (Auto) 0-2 (0-2) /hpf U Hyaline Cast (Auto) 0-2 (0-2) /lpf U Epithel Cells (Auto) 0-2 (0-2) /hpf Urine Bacteria (Auto) None Seen (None Seen) SARS-CoV-2 (PCR) NEGATIVE (Negative) Influenza Type A (PCR) Negative (Neg) Influenza Type B (PCR) Negative (Neg) RSV (RT-PCR) Negative (Neg) Administered Medications Discontinued Medications Acetaminophen (Ofirmev) 1,000 mg in 100 mls @ 400 mls/hr IV NOW STA Stop: 01/25/25 20:26 Last Infusion: 01/25/25 20:58 Dose: Infused Documented By: Admin: 01/25/25 20:35 Dose: 400 mls/hr Documented By: SANDY Cefepime HCl (Maxipime 2000mg) 2,000 mg in 20 mls @ 5 mls/min IV NOW STA; Protocol Stop: 01/25/25 20:18 Last Admin: 01/25/25 20:43 Dose: 5 mls/min Documented By: SANDY Magnesium Sulfate/Dextrose (Magnesium Sulfate / D5w) 1 gm in 100 mls @ 100 mls/hr IV NOW STA Stop: 01/25/25 21:55 Last Admin: 01/25/25 22:15 Dose: 100 mls/hr Documented By: SANDY Sodium Chloride (Nss) 1,000 mls @ 999 mls/hr IV .Q1H1M ONE Stop: 01/25/25 23:30 Last Admin: 01/25/25 22:46 Dose: 999 mls/hr Documented By: SANDY Ioversol (Optiray 320 125ml) 115 ml IV ONCE ONE Stop: 01/25/25 21:59 Last Admin: 01/25/25 22:00 Dose: 115 ml Documented By: ENID Ondansetron HCl (Ondansetron Inj 2 Mg/Ml 2 Ml Vial) 4 mg IV NOW STA Stop: 01/25/25 20:00 Last Admin: 01/25/25 20:36 Dose: 4 mg Documented By: SANDY Imaging Data Attestation: I personally reviewed and interpreted this imaging study as follows: My Impression: 1 view chest x-ray was obtained in the emergency department. My interpretation is possible right lower lobe infiltrate, final report pending. CT the brain was obtained in the emergency department. My interpretation is no intracranial hemorrhage or mass effect, final report pending. CT of the chest was obtained in the emergency department. My interpretation is possible right lower lobe infiltrate, no free air, final report pending. CT of the abdomen and pelvis was obtained in the emergency department. My interpretation is no free air or signs of bowel obstruction, final report pending. Discharge Plan Visit Data Chief Complaint: Vomiting Stated Complaint: V/D, Fever ED Provider: Juanjo Amaya Discharge Problem: Pneumonia, Fever, Vomiting, Delirium Patient Disposition: Being Evaluated by Hospitalist Forms Stand Alone Forms: My [facility] Prescriptions Prescriptions: No Action verapamil 180 mg tablet extended release 180 mg PO QAM levothyroxine 25 mcg tablet 25 mcg PO DAILYBB metformin 500 mg tablet 1,000 mg PO BID aspirin 81 mg Tablet,Delayed Release (Dr/Ec) 81 mg PO QAM atorvastatin 80 mg tablet 80 mg PO HS Qty: 30 3RF Rx Instructions: Take 80mg daily at night. clopidogrel [Plavix] 75 mg tablet 75 mg PO QAM mirtazapine 15 mg tablet 7.5 mg PO HS escitalopram oxalate 10 mg tablet 10 mg PO DAILY pantoprazole 40 mg tablet,delayed release (DR/EC) 40 mg PO BID Qty: 60 0RF ferrous sulfate 325 mg (65 mg iron) tablet 325 mg PO Q OTHER DAY Qty: 60 0RF Rx Instructions: buy over the counter lisinopril 5 mg tablet 5 mg PO DAILY ondansetron 8 mg tablet,disintegrating 8 mg PO Q8 PRN (Reason: Nausea) Referrals Referrals: Delbert Guzmán MD [Primary Care Provider] -
[2025-01-25 20:26] LABS: Base Excess VBG -1.6 mEq/L; HCO3 VBG 22 mmol/L; Oxygen Saturation VBG 90.8 %; PCO2 VBG 32 mmHg (38-50); PO2 VBG 59 mmHg; pH VBG 7.44 (7.36-7.41)
[2025-01-25 20:31] LABS: Hemoglobin 11.7 g/dl (14.0-18.0); Mean Corpuscular Hemoglobin 28.7 pg (25.0-34.0); Mean Corpuscular Hgb Conc 32.5 g/dL (32.0-36.0); Mean Corpuscular Volume 88.2 fL (80.0-100.0); Mean Platelet Volume 10.3 fL (9.4-12.4); Nucleated RBC # (auto) 0.04 K/uL (0.00-0.12); Nucleated RBC % (auto) 0.2 %; Platelet Count 141 K/uL (130-400); RDW Coefficient of Variation 24.3 % (11.5-14.5); RDW Standard Deviation 76.9 fL (36.4-46.3); Red Blood Count 4.08 M/uL (4.70-6.10); White Blood Count 20.04 K/ul (4.8-10.8)
[2025-01-25] MEDS: ACETAMINOPHEN 1,000 MG/100 ML VIAL IV STA (20:35)
[2025-01-25] MEDS: ONDANSETRON INJ 2 MG/ML 2 ML VIAL IV STA (20:36)
[2025-01-25] MEDS: CEFEPIME 2000MG 2,000 MG/20 ML SYR IV STA (20:43)
[2025-01-25 20:48] LABS: Acanthocytes 1+; Albumin Level 3.8 gm/dl (3.4-5.0); Anisocytosis Present; BUN Creatinine Ratio 24.1 (10-20); Basophils # (auto) 0.11 K/uL (0.00-0.20); Basophils % (auto) 0.5 %; Bilirubin Direct 0.2 mg/dl (0-0.2); Bilirubin,Total 0.7 mg/dl (0.2-1.0); Calcium 8.5 mg/dl (8.6-10.3); Creatinine Clr Calc Pharmacy 60.9 ml/min; Eosinophils # (auto) 0.06 K/uL (0.00-0.50); Eosinophils % (auto) 0.3 %; Immature Granulocytes # (auto) 0.85 K/uL (0.01-0.20); Immature Granulocytes % (auto) 4.2 %; Lymphocytes # (auto) 0.63 K/uL (1.20-3.40); Lymphocytes % (auto) 3.1 %; Magnesium 1.6 mg/dl (1.7-2.4); Monocytes # (auto) 0.65 K/uL (0.11-0.59); Monocytes % (auto) 3.2 %; Neutrophils # (auto) 17.74 K/uL (1.40-6.50); Neutrophils % (auto) 88.7 %; Ovalocytes 1+; Polychromasia 1+; Potassium 4.1 mmol/L (3.5-5.1); Tear Drop Cells 1+; Total Protein 6.4 gm/dl (6.0-8.3)
[2025-01-25 20:55] LABS: Dohle Bodies 1+; Troponin I High Sensitivity 16.7 pg/ml (0-20)
[2025-01-25 20:57] LABS: INR 1.1 (0.9-1.1); Partial Thromboplastin Ratio 1.1; Partial Thromboplastin Time 29 Seconds (21-31)
[2025-01-25 21:03] LABS: Influenza A virus by PCR Negative (Neg); Influenza B virus by PCR Negative (Neg); RSV by PCR Negative (Neg); SARS CoV2 RNA(COVID-19) Ceph NEGATIVE (Negative)
[2025-01-25 21:13] LABS: Appearance Urine Clear (Clear); Bacteria Urine Automated None Seen (None Seen); Bilirubin Urine Negative (Negative); Blood Urine 2+ (Negative); Cast Urine Automated 0-2 /lpf (0-2); Color Urine Yellow; Epithelial Cell Urine Auto 0-2 /hpf (0-2); Glucose Urine UA Negative (Negative); Ketones Urine 1+ (Negative); Leukocyte Esterase Urine Negative (Negative); Nitrite Urine Negative (Negative); Protein Urine 1+ (Negative); RBC Urine Automated 0-2 /hpf (0-2); Specific Gravity Urine 1.018 (1.000-1.030); Urobilinogen Urine Negative (Negative); WBC Urine Automated 0-5 /hpf (0-5)
[2025-01-25] MEDS: OPTIRAY 320 125ml IV ONE (22:00)
[2025-01-25] MEDS: MAGNESIUM SULFATE / D5W 1 GM/100 ML BAG IV STA (22:15)
[2025-01-25] MEDS: SODIUM CHLORIDE 0.9% 1,000 ML IV ONE (22:46)
--- NOTE | 2025-01-25 23:36 | History & Physical Report ---
Date of Service January 25, 2025 Assessment & Plan (1) Gastroenteritis: (2) Pneumonia: (3) HTN (hypertension): (4) Hyperglycemia due to type 2 diabetes mellitus: (5) TIA (transient ischemic attack): (6) Hypothyroid: (7) Delirium: Plan Pt is a 84 yo male with a past medical hx of esophageal cancer on chemotherapy, last session 2 weeks ago on Monday and next due this upcoming Monday, HTN, hx CVA, hypothyroidism, DMT2 on metformin who presents to the hospital on 01/25 for acute onset nausea and vomiting. #Gastroenteritis (N/V +/- diarrhea) - last chemo tx was now nearly 2 weeks ago - CT abd; pending - blood cx and stool pcr pending - zofran prn for nausea - start with clear diet to advance as tolerated #Pneumonia - CT chest/xray; showed RLL opacity suggestive of pneumonia per my read, pending final read - given 1 dose of cefepime by the ED, will continue this - speech eval given hx gastroesophageal ca #AMS/delirium - family noted on admission he states he did not remember the ambulance ride over - no baseline cog deficits - likely delirium in the setting of infection/dehydration #Gastroesophageal cancer - follows with oncology Dr Friedman locally #Hypoythroidism - TSH at end of Nov 2024 wnl, defer checking this during acute illness phase - continue home levothyroxine #DMT2 - hold home metformin while sick here in the hospital - morning HA1c - defer insulin given poor intake at this time but can start low dose once able to po if desired #Hx CVA - on aspirin and plavix DAPT, continue these #HTN - holding home lisinopril given hypotension on admission IVF: 1L bolus given by ER, to get LR 80/hr for 24 hours Diet: clear liquid, can advance as tolerated by the pt VTE: on DAPT, encourage supervised ambulation, defer lovenox/heparin/further prophylaxis given hx GI bleed and issues with ongoing anemia since November 2024 requiring transfusions History of Present Illness Chief Complaint: Vomiting Primary Care Provider: Delbert Guzmán MD Pt is a 84 yo male with a past medical hx of esophageal cancer on chemotherapy, last session 2 weeks ago on Monday and next due this upcoming Monday, HTN, hx CVA, hypothyroidism, DMT2 on metformin who presents to the hospital on 01/25 for acute onset nausea and vomiting. His and daughter are present at bedside and give history given he is very fatigued. His daughter states he noted he could not remember much about the ride over to the hospital today. His states that he was in generally normal health this morning, walked on home walking pad with her but she does note he was a bit more fatigued than usual. He does have esopgaheal cancer and got a dose of chemo 2 weeks ago on Monday. He did have some nonbloody diarrhea then and went to oncology earlier this week on for an infusion of maybe blood or iron. The diarrhea had resolved and then the last few days he has had some nonbloody watery stools. Today around 3 or 4 pm he started to get fever, chills, and had 7 episodes of nonbloody vomiting. His tried to give him gatorade and pedalyte but he would vomit those up too. He is currently residing at the [facility]. No vomiting the last few hours. No dysuria. No chest pain or SOB. Allergies Allergy/AdvReac Type Severity Reaction Status Date / Time shellfish derived Allergy Intermediate Diarrhea Verified 01/22/25 08:02 Home Medications Medication Instructions Recorded Confirmed Type levothyroxine 25 mcg tablet 25 mcg PO DAILYBB 08/19/19 01/22/25 History verapamil 180 mg tablet,extended 180 mg PO QAM 08/19/19 01/22/25 History release metformin 500 mg tablet 1,000 mg PO BID 04/15/21 01/22/25 History aspirin 81 mg tablet,delayed 81 mg PO QAM 01/24/24 01/22/25 History release clopidogrel 75 mg tablet (Plavix) 75 mg PO QAM 07/16/24 01/22/25 History atorvastatin 80 mg tablet 80 mg PO HS #30 tabs 07/22/24 01/22/25 Rx escitalopram oxalate 10 mg tablet 10 mg PO DAILY 11/27/24 01/22/25 History mirtazapine 15 mg tablet 7.5 mg PO HS 11/27/24 01/22/25 History ferrous sulfate 325 mg (65 mg 325 mg PO Q OTHER DAY iron 11/28/24 01/22/25 Rx iron) tablet deficiency #60 tabs pantoprazole 40 mg tablet,delayed 40 mg PO BID #60 tabs 11/28/24 01/22/25 Rx release lisinopril 5 mg tablet 5 mg PO DAILY 01/09/25 01/22/25 History ondansetron 8 mg disintegrating 8 mg PO Q8 PRN Nausea 01/09/25 01/22/25 History tablet gentamicin 0.3 % eye drops See Rx Instructions .Route 01/26/25 Rx .COMPLEX #5 mL Past Med/Surg History Problem List (Updated 01/26/25 @ 09:53 by Marcos Berry MD) Type 2 diabetes mellitus Esophageal cancer Acute conjunctivitis of both eyes Gastroenteritis Delirium (Acute) Vomiting (Acute) Fever (Acute) Pneumonia (Acute) On clopidogrel therapy (Acute) Iron deficiency (Acute) GIB (gastrointestinal bleeding) (Acute) Anemia (Acute) Chest pressure Chest pain (Acute) Bilateral carotid artery disease HTN (hypertension) (Acute) Gout Hyperglycemia due to type 2 diabetes mellitus Acute foot pain (Acute) TIA (transient ischemic attack) CVA vs TIA 2012 History of CVA (cerebrovascular accident) (Acute) 07/09/24 Numbness and tingling of right arm (Acute) Vertigo Hypothyroid Hypercholesteremia Diabetes Kidney disease Upper extremity neuropathy (Acute 10/06/13) Occipital neuralgia (Acute) Left ear injury (Acute) Headache (Acute) Stomach problems (Chronic) Urinary problem (Chronic) Medical History Weight loss H/O transfusion of packed red blood cells Renal cyst Hepatic cyst LVH (left ventricular hypertrophy) severe cLVH per 07/10/24 ECHO CKD (chronic kidney disease) History of depression r/t first stroke - no issues currently Hypothyroidism HTN (hypertension) Gout 01/24/24-01/25/24 [facility]; Rx colchicine Diabetes mellitus, type 2 Hx: UTI (urinary tract infection) 01/2024 [facility] admission sepsis 2/2 UTI; resolved Hx of sepsis /2 to UTI 01/2024 admission Carotid stenosis 07/09/24 imagin% stenosis of the proximal right ICA and 60% stenosis on the left History of bladder cancer 2010; s/p BCG tx Urinary frequency CVA (cerebral vascular accident) 06/2013 in [place] (CVA vs TIA per chart review) 07/09/24 [facility]: presented with LUE weakness; 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, associated 90% proximal R ICA stenosis, 60% stenosis L; plan for R TCAR; per pt, no residual sx Surgical History H/O endoscopy H/O transcarotid artery revascularization (TCAR) History of transcarotid artery revascularization (TCAR) 07/24/24 History of bladder surgery Hx of Achilles tendon repair Right Hx of colonoscopy Hx of appendectomy Family History Mother , age 84 of uncertain cause Hypertension Father , age 64 with tuberculosis Tuberculosis Social History Smoking Status: Never smoker Tobacco Type: Cigarettes Second Hand Exposure: No; Do You Dip or Chew Tobacco: No; Hx Alcohol Use: No Hx Substance Use: No Preferred Language: Slovak Communication Ability: Effective Leadership Recruiter Required: No Beliefs That Will Affect Care: None Current Living Situation: Spouse and Other Current Living Situation Comment: [place] current occupational status: 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 Physical Exam Physical Exam: General: Alert and oriented but very fatigued appearing (family gives most of history), no acute distress but ill appearing HEENT: Normocephalic, moist oral mucosa, Cardio: Regular rate and rhythm, no murmur, Resp: R middle/lower field crackles noted with some faint crackles in LLL, otherwise no wheezing GI: Soft, nondistended, bowel sounds active, tender to palpation in all quadrants Skin: Warm, pink, dry, Results & Data Results & Data Vital Signs (Past 12 Hours) Vital Signs Temp Pulse Pulse Resp BP BP Pulse Ox 01/25/25 22:45 01/25/25 22:45 64 16 108/50 L 94 01/25/25 22:30 67 18 108/50 L 94 01/25/25 22:14 37.1 C 74 21 118/67 96 01/25/25 21:48 74 15 01/25/25 21:30 79 117/55 L 01/25/25 21:12 79 19 01/25/25 21:00 118/50 L 01/25/25 20:36 83 22 01/25/25 20:30 156/75 H 01/25/25 20:18 85 23 01/25/25 20:13 87 01/25/25 19:58 39.5 C H 100 H 20 197/120 H 91 O2 Del Method 01/25/25 22:45 Room Air 01/25/25 22:45 Room Air 01/25/25 22:30 Room Air 01/25/25 22:14 Room Air 01/25/25 21:48 01/25/25 21:30 01/25/25 21:12 01/25/25 21:00 01/25/25 20:36 01/25/25 20:30 01/25/25 20:18 01/25/25 20:13 01/25/25 19:58 Room Air Supervising Physician Co-Signing Physician Notes patient seen and examined, chart reviewed, case discussed with Dr. Goss and I agree with the assessment and plan as document above. In brief, patient is an 84-year-old male with history of esophageal cancer on chemotherapy, hypothyroidism, hypertension, diabetes presenting with acute onset nausea and vomiting as well as some nonbloody diarrhea. Patient also with significant fatigue On exam he is resting comfortably, no acute distress Skin intact without rash HEENT slightly dry mucous membranes Heart + S1, S2, regular Lungs CTA anteriorly Abdomen soft nontender nondistended Extremities warm and well-perfused Labs and images reviewed WBC = 16.74 Electrolytes and renal function are intact Assessment/[id number] male with history of esophageal cancer on chemotherapy presenting with nausea, vomiting, diarrhea as well as fatigue and possible delirium Continue IV fluids, symptomatic care with Zofran as needed Clear liquid advance as tolerated Continue cefepime for presumed pneumonia Remainder as above Resident Activity Tracking Resident Involvement: Resident Care Provided Care Provided: Adult Hospital Medicine (3) HTN (hypertension) Hypertension type: unspecified Qualified Code(s): I10 - Essential (primary) hypertension
[2025-01-26] MEDS: LACTATED RINGER'S 1,000 ML IV SCH ×2 (00:20→02:37)
--- NOTE | 2025-01-26 01:23 | CT Scan Report ---
Exam(s): CT HEAD Without Contrast EXAM: CT Head Without Intravenous Contrast CLINICAL HISTORY: Reason for exam: fever, vomting. TECHNIQUE: Axial computed tomography images of the head/brain without intravenous contrast. CTDI is 47.37 mGy and DLP is 2070.64 mGy-cm. Automated exposure control was utilized for the study. A dose lowering technique was utilized adhering to the principles of ALARA. COMPARISON: CT head: 11/27/2024 FINDINGS: Image quality is degraded by motion artifact. Brain: There is no acute intracranial hemorrhage, mass-effect or midline shift. Ventricles: Age-related cerebral atrophy with widening of the extra- axial spaces and ventricular dilatation. Periventricular areas with decreased density most likely represent microvascular disease changes. Bones/joints: Unremarkable. No acute fracture. Soft tissues: Unremarkable. Sinuses: Unremarkable as visualized. No acute sinusitis. Mastoid air cells: Unremarkable as visualized. No mastoid effusion. IMPRESSION: No acute intracranial abnormality noted. Chronic involutional and ischemic changes of the brain. . Electronically signed by: Daisy Moctezuma MD, ANNELR 01/26/25 01:22 AM
--- NOTE | 2025-01-26 01:45 | CT Scan Report ---
Exam(s): CTA CHEST IV Amt: 115 ml optiray 320 EXAM: CT Angiography Chest With Intravenous Contrast CLINICAL HISTORY: Reason for exam: fever, vomting. TECHNIQUE: Axial computed tomographic angiography images of the chest with intravenous contrast. CTDI is 47.37 mGy and DLP is 2070.64 mGy-cm. Automated exposure control was utilized for the study. A dose lowering technique was utilized adhering to the principles of ALARA. MIP reconstructed images were created and reviewed. COMPARISON: X-ray chest: 01/25/2025 FINDINGS: A right IJ Port-A-Cath terminates in the SVC. Pulmonary arteries: Unremarkable. No pulmonary embolism. Aorta: No acute findings. Atherosclerotic calcified plaques. No thoracic aortic aneurysm. Heart: Borderland/mildly cardiomegaly. Multivessel calcified coronary arterial atherosclerosis. No significant pericardial effusion. No evidence of RV dysfunction. Lungs: Central airways are patent. Bronchial wall thickening and mild dilatation. Demonstrates consolidation with corresponding/surrounding pneumonic infiltrates in the right lower lobe. Pleural space: Posteriorly pleural thickening. Trace right pleural fluid. No pneumothorax. Bones/joints: No acute fracture. No dislocation. Mid/lower thoracic anterior bridging marginal osteophytes. Soft tissues: Unremarkable. Lymph nodes: No enlarged lymph nodes. Other findings: A very small hiatal hernia. A 3 cm cyst medially in the left hepatic lobe and a smaller cyst peripherally in the right lobe. A distended gallbladder. IMPRESSION: No evidence of pulmonary embolism. No aortic aneurysm or dissection. Calcified atherosclerosis of the coronary arteries and thoracic aorta. Right lower lung lobe posteriorly consolidation with corresponding/surrounding pneumonic infiltrates. Trace right pleural fluid. . Electronically signed by: Daisy Moctezuma MD, DABR 01/26/25 01:44 AM
--- NOTE | 2025-01-26 02:14 | CT Scan Report ---
Exam(s): CT ABDOMEN + PELVIS With Contrast IV Amt: 115 ml optiray 320 EXAM: CT Abdomen and Pelvis With Intravenous Contrast CLINICAL HISTORY: Reason for exam: fever, vomting. TECHNIQUE: Axial computed tomography images of the abdomen and pelvis with intravenous contrast. CTDI is 47.37 mGy and DLP is 2070.64 mGy-cm. Automated exposure control was utilized for the study. A dose lowering technique was utilized adhering to the principles of ALARA. CONTRAST: Patient received 115 ml optiray 320 of IV contrast COMPARISON: CT abdomen/pelvis: 01/09/2025 FINDINGS: Lung bases: Concurrently performed CT chest is reported separately. ABDOMEN: Liver: Stable cysts in the liver, a 3 cm dominant cyst medially in the left lobe. No solid mass. Mild periportal edema. Gallbladder and bile ducts: Distended gallbladder. No calcified stones. No ductal dilation. Pancreas: No contour deforming mass or surrounding inflammatory changes identified. No ductal dilation. Spleen: Unremarkable. No splenomegaly. Adrenals: Unremarkable. No mass. Kidneys and ureters: Unremarkable. No solid mass. No hydronephrosis. Stomach and bowel: A small hiatal hernia. Normal-caliber small bowel. Moderately large volume liquid and formed stool in the colon. Mildly distended gas-filled redundant sigmoid. No obstruction. No mucosal thickening. PELVIS: Appendix: No acute findings in the region of the appendix. Bladder: Unremarkable. Reproductive: Mildly enlarged prostate extends into the bladder base. ABDOMEN and PELVIS: Intraperitoneal space: Demonstrates relatively well-defined mesenteric dontrell soft tissue attenuation with halo of sparing around the small subcentimeter multiple lymph nodes, most suggestive of sclerosing mesenteritis (series 900 image 32, series 9 image 154). No free air. No significant fluid collection. Bones/joints: No acute fracture. No dislocation. Multilevel moderately advanced degenerative disc/endplate spondylitic changes with variable degrees of bilateral neuroforaminal and central canal stenosis.. Soft tissues: Unremarkable. Vasculature: Diffuse calcified atherosclerosis of the aortoiliac vasculature and branch vessels. No abdominal aortic aneurysm. Lymph nodes: Multiple small subcentimeter lymph nodes in the root of the small bowel mesentery. No lymphadenopathy by CT size criteria. IMPRESSION: Nonspecific small periportal edema. A distended gallbladder. Moderately large volume liquid/formed stool is seen in the entire colon. Gas filled mildly distended redundant sigmoid colon. Relatively well-defined mesenteric dontrell soft attenuation with halo of spleen around multiple small subcentimeter lymph nodes in the root of the small bowel, most suggestive of sclerosing mesenteritis. Multilevel moderately advanced degenerative lumbosacral spondylosis with variable degrees of foraminal and central canal stenosis. . Electronically signed by: Daisy Moctezuma MD, ANNELR 01/26/25 02:12 AM
[2025-01-26] MEDS ORDERED: POLYETHYLENE (MIRALAX) 17 GM PACK PO PRN (02:23)
[2025-01-26] MEDS ORDERED: ACETAMINOPHEN 325 MG TAB PO PRN (02:23)
[2025-01-26] MEDS ORDERED: ONDANSETRON INJ 2 MG/ML 2 ML VIAL IV PRN (02:23)
[2025-01-26 02:39] VITALS: O2SAT 95
--- NOTE | 2025-01-26 03:51 | XRay Report ---
Exam(s): XR CXR 1 VIEW EXAM: XR Chest, 1 View CLINICAL HISTORY: Sepsis. TECHNIQUE: Frontal view of the chest. COMPARISON: Chest 2 views dated 01/09/2025 FINDINGS: Lungs: Unremarkable. No consolidation. The pulmonary vasculature demonstrates no significant radiographic abnormality. Pleural space: Unremarkable. No pneumothorax. No large pleural effusion. Heart: The cardiac silhouette is presumed within normal limits, accounting for portable technique. Mediastinum: Streaky infrahilar changes are similar to the previous examination and are presumed confluence of vascular structures. Mediastinum: The hilar structures are stable. No tracheal deviation. Bones/joints: No acute osseous abnormality. Chronic degenerative changes about the right shoulder. Tubes, lines and devices: A right subclavian approach CT compatible port catheter is noted with the tip in the superior vena cava. IMPRESSION: No focal consolidation or acute cardiopulmonary process identified. Electronically signed by: Alex Ayala MD 01/26/25 03:50 AM
[2025-01-26] MEDS: LEVOTHYROXINE SODIUM 25 MCG TABLET PO SCH (05:03)
[2025-01-26] MEDS: CEFEPIME 2000MG 2,000 MG/20 ML SYR IV SCH (05:03)
[2025-01-26 07:19] VITALS: BP 130/65; PULSE 65; RESP 16; TEMP 98.2
[2025-01-26] MEDS: ASPIRIN 81 MG ECTAB PO SCH (07:19)
[2025-01-26] MEDS: PANTOprazole 40 MG TAB PO SCH (07:19)
[2025-01-26] MEDS: FERROUS SULFATE 325 MG TAB PO SCH (07:19)
[2025-01-26] MEDS: ESCITALOPRAM OXALATE 10 MG TAB PO SCH (07:19)
[2025-01-26] MEDS: CLOPIDOGREL BISULFATE 75 MG TAB PO SCH (07:20)
[2025-01-26 07:57] LABS: Estimated Average Glucose 105 mg/dl; Hemoglobin A1C 5.3 % (4.5-5.6)
[2025-01-26 07:59] LABS: Albumin Globulin Ratio 1.4 (0.9-2); BUN Creatinine Ratio 24.3 (10-20); Bilirubin,Total 0.7 mg/dl (0.2-1.0); Calcium 7.8 mg/dl (8.6-10.3); Creatinine Clr Calc Pharmacy 72.2 ml/min; Globulin 2.2 gm/dl (2.5-4.0); Magnesium 1.9 mg/dl (1.7-2.4); Phosphorus 2.6 mg/dl (2.5-4.9); Potassium 4.1 mmol/L (3.5-5.1); Total Protein 5.2 gm/dl (6.0-8.3)
[2025-01-26 08:07] LABS: Anisocytosis Present; Basophils # (auto) 0.08 K/uL (0.00-0.20); Basophils % (auto) 0.5 %; Eosinophils % (auto) 0.6 %; Hematocrit (blood only) 29.9 % (42.0-52.0); Hemoglobin 9.6 g/dl (14.0-18.0); Immature Granulocytes # (auto) 0.47 K/uL (0.01-0.20); Immature Granulocytes % (auto) 2.8 %; Lymphocytes # (auto) 1.15 K/uL (1.20-3.40); Lymphocytes % (auto) 6.9 %; Mean Corpuscular Hemoglobin 28.5 pg (25.0-34.0); Mean Corpuscular Hgb Conc 32.1 g/dL (32.0-36.0); Mean Corpuscular Volume 88.7 fL (80.0-100.0); Mean Platelet Volume 9.9 fL (9.4-12.4); Monocytes # (auto) 0.93 K/uL (0.11-0.59); Monocytes % (auto) 5.6 %; Neutrophils # (auto) 14.01 K/uL (1.40-6.50); Neutrophils % (auto) 83.6 %; Ovalocytes 1+; Platelet Count 118 K/uL (130-400); Polychromasia 1+; RDW Coefficient of Variation 24.3 % (11.5-14.5); RDW Standard Deviation 78.7 fL (36.4-46.3); Red Blood Count 3.37 M/uL (4.70-6.10); Tear Drop Cells 1+; White Blood Count 16.74 K/ul (4.8-10.8)
--- NOTE | 2025-01-26 08:42 | Electrocardiogram Report ---
Test Reason : Blood Pressure : */* mmHG Vent. Rate : 85 BPM Atrial Rate : 85 BPM P-R Int : 172 ms QRS Dur : 96 ms QT Int : 370 ms P-R-T Axes : 46 -26 36 degrees QTcB Int : 440 ms Normal sinus rhythm Normal ECG When compared with ECG of 09-Jan-2025 22:05, No significant change Confirmed by Kevin Smiley ([id number]) on 01/26/2025 8:42:07 AM Referred By: REFERRED SELF Confirmed By: Kevin Smiley
[2025-01-26] MEDS: VERAPAMIL HCL 180 MG TABCR PO SCH (09:30)
--- NOTE | 2025-01-26 09:55 | Discharge Summary ---
Discharge Summary Date of Service January 26, 2025 Principal Dx & Hospital Course #1 = Principal Diagnosis (1) Gastroenteritis: Suspected viral etiology. Now resolved. (2) Acute conjunctivitis of both eyes: Gentamicin eyedrops have been ordered and will continue at discharge for 5 days total (3) Esophageal cancer: Currently undergoing treatment by oncology (4) HTN (hypertension): Stable. Continue current medical management (5) Type 2 diabetes mellitus: Stable. Continue current medical management Plan Home todayJanuary 26 Admission HPI Per Admitting Provider Pt is a 84 yo male with a past medical hx of esophageal cancer on chemotherapy, last session 2 weeks ago on Monday and next due this upcoming Monday, HTN, hx CVA, hypothyroidism, DMT2 on metformin who presents to the hospital on 01/25 for acute onset nausea and vomiting. His and daughter are present at bedside and give history given he is very fatigued. His daughter states he noted he could not remember much about the ride over to the hospital today. His states that he was in generally normal health this morning, walked on home walking pad with her but she does note he was a bit more fatigued than usual. He does have esopgaheal cancer and got a dose of chemo 2 weeks ago on Monday. He did have some nonbloody diarrhea then and went to oncology earlier this week on for an infusion of maybe blood or iron. The diarrhea had resolved and then the last few days he has had some nonbloody watery stools. Today around 3 or 4 pm he started to get fever, chills, and had 7 episodes of nonbloody vomiting. His tried to give him gatorade and pedalyte but he would vomit those up too. He is currently residing at the [facility]. No vomiting the last few hours. No dysuria. No chest pain or SOB. Discharge Exam General-alert and oriented x3, no fever, no chills HEENT-head atraumatic and normocephalic, pupils equal and reactive to light, extraocular muscles intact. Evidence of bilateral bacterial conjunctivitis Neck-no lymphadenopathy or thyromegaly, trachea midline Chest-clear to auscultation. No rales, wheezing or rhonchi Cardiac-regular rate and rhythm, normal S1 and S2 Abdomen-normal bowel sounds, no hepatosplenomegaly Extremities-no cyanosis, clubbing, or edema Neuro-cranial nerves II through XII intact, motor and sensory function within normal limits, strength symmetrical, no focal deficits Psych-normal affect, normal mood Discharge Plan Discharge Items Patient Disposition: Home - Self-Care Reason For Visit: NAUSEA WITH VOMITING Discharge Diagnosis: Suspected viral gastroenteritis, bilateral bacterial conjunctivitis Activity: Resume your previous activity Non-emergency contact: Primary Care Provider and Oncologist Call non-emergency contact if: you have any medication questions and your sympto ms worsen Follow-up/Referrals: Delbert Guzmán MD [Primary Care Provider] - Diet: Carb Consistent or DM2 Addtl Attending Provider Instructions: Use gentamicin eyedrops in both eyes 4 times daily for 5 days. A prescription has been sent to [facility] pharmacy. All other medications remain the same. Follow-up with oncology as planned. Follow-up with primary care provider soon as possible Pending Studies at Discharge: No Stand-Alone Forms: My [facility] [place], Smoking Cessation Medications and DC Order Prescriptions: New gentamicin 0.3 % drops See Rx Instructions .ROUTE .COMPLEX Qty: 5 0RF Rx Instructions: 1 drp into both eyes 4 times a day for 5 days Continued verapamil 180 mg tablet extended release 180 mg PO QAM levothyroxine 25 mcg tablet 25 mcg PO DAILYBB metformin 500 mg tablet 1,000 mg PO BID aspirin 81 mg Tablet,Delayed Release (Dr/Ec) 81 mg PO QAM atorvastatin 80 mg tablet 80 mg PO HS Qty: 30 3RF Rx Instructions: Take 80mg daily at night. clopidogrel [Plavix] 75 mg tablet 75 mg PO QAM mirtazapine 15 mg tablet 7.5 mg PO HS escitalopram oxalate 10 mg tablet 10 mg PO DAILY pantoprazole 40 mg tablet,delayed release (DR/EC) 40 mg PO BID Qty: 60 0RF ferrous sulfate 325 mg (65 mg iron) tablet 325 mg PO Q OTHER DAY Qty: 60 0RF Rx Instructions: buy over the counter lisinopril 5 mg tablet 5 mg PO DAILY ondansetron 8 mg tablet,disintegrating 8 mg PO Q8 PRN (Reason: Nausea) Discharge Orders: Discharge Order (Routine); Ordered 01/26/25 Ordered By: Marcos Berry Admission Data Admit Date/Time: 01/26/25 00:13 Attending Provider: Marcos Berry Admit Provider: aPm Goss Primary Care Provider: Delbert Guzmán Other Providers: Deb Pressley Hospital Stay Data Consultations 01/25/25 22:46 ED Decision to Admit Stat Diagnostic Imagining Performed 01/25/25 21:16 CT abd pelvis IV con only Stat CT angio chest PE protocol Stat CT head/brain wo con Stat Pending Results Patient Have Any Pending Studies at Discharge: No Discharge Instructions Given to Patient (Per Discharging Provider) Use gentamicin eyedrops in both eyes 4 times daily for 5 days. A prescription has been sent to [facility] pharmacy. All other medications remain the same. Follow-up with oncology as planned. Follow-up with primary care provider soon as possible Total Time Total Time Spent Total Time Spent (In Minutes): 45 minutes Coding Level of Care Code 11367 INP/OBS DISCH >30 MIN Diagnoses Gastroenteritis K52.9 Acute conjunctivitis of both eyes H10.33 Esophageal cancer C15.9 HTN (hypertension) I10 Hypertension type: unspecified Type 2 diabetes mellitus E11.9
[2025-01-26] MEDS: HEPARIN 100 UNIT/ML 5ML FLUSH FLUSH STA (10:24)
[2025-01-26] MEDS: GENTAMICIN SULFATE 0.3% OP SOLN 5 ML BTL OPB ONE (10:54)
[2025-01-26 11:45] LABS: Adenovirus F 40/41 PCR Not Detected (NotDetected); Astrovirus PCR Not Detected (NotDetected); Campylobacter PCR Not Detected (NotDetected); Cryptosporidium PCR Not Detected (NotDetected); Cyclospora cayetanensis PCR Not Detected (NotDetected); Entamoeba histolytica PCR Not Detected (NotDetected); Enteroaggregative E.coli(EAEC) Not Detected (NotDetected); Enteropathogenic E.coli (EPEC) Not Detected (NotDetected); Giardia lamblia PCR Not Detected (NotDetected); Norovirus GI/GII PCR Not Detected (NotDetected); Plesiomonas shigelloides PCR Not Detected (NotDetected); Rotavirus A PCR Not Detected (NotDetected); Salmonella PCR Not Detected (NotDetected); Sapovirus PCR Not Detected (NotDetected); Shiga-like Toxin E.coli (STEC) Not Detected (NotDetected); Shigella/Enteroinvasive E.coli Not Detected (NotDetected); Vibrio cholerae PCR Not Detected (NotDetected); Vibrio species PCR Not Detected (NotDetected); Yersinia enterocolitica PCR Not Detected (NotDetected)
[2025-01-26 12:06] LABS: Enterotoxigenic E.coli (ETEC) DETECTED (NotDetected)
--- NOTE | 2025-01-26 13:15 | Communication Note ---
Date of Service: January 26, 2025 Notified by lab that enterotoxigenic E. coli test was positive. It is clinically feasible that this is simply colonization. His clinical course was more consistent with viral infection then enterotoxigenic E. coli since he improved rapidly. In any case, this does not warrant ongoing antibiotic treatment.
[2025-01-26] MEDS ORDERED: MIRTAZAPINE TAB 15 MG TAB PO SCH (21:00)
--- NOTE | 2025-01-26 23:23 | Billing Data ---
Date of Service January 25, 2025 Coding Level of Care Code 50452 INT INP/OBS CARE
== END 2025-01-26 11:03 | disposition home or self-care (01) | DRG 392 ==
LOC: ED 19:54 → INTOOBSV 01-26 00:13 → SUATTDRO 01-26 00:13 → 2W 01-26 00:13

== ENCOUNTER 2025-09-29 10:48 | Inpatient (IN) ==
--- NOTE | 2025-09-29 11:42 | XRay Report ---
XR chest 1V portable CLINICAL HISTORY: weak, hallucations COMPARISON STUDY: 01/25/2025 FINDINGS: Stable right chest port. Heart size and pulmonary vasculature are normal. Skinfold artifact overlies the right chest. No consolidation or pleural effusion seen. No pneumothorax. IMPRESSION: No acute findings. ACT 112: Negative or not required by law. Electronically signed by: Surya Mejia M.D. 09/29/2025 11:41 AM
[2025-09-29 12:11] LABS: Hematocrit (blood only) 37.7 % (42.0-52.0); Hemoglobin 12.1 g/dL (14.0-18.0); Immature Granulocytes # (auto) 0.05 K/uL (0.01-0.20); Immature Granulocytes % (auto) 0.6 %; Mean Corpuscular Hemoglobin 31.9 pg (25.0-34.0); Mean Corpuscular Volume 99.5 fL (80.0-100.0); Platelet Count 165 K/uL (130-400); RDW Standard Deviation 51.5 fL (36.4-46.3); Red Blood Count 3.79 M/uL (4.70-6.10); White Blood Count 8.30 K/ul (4.8-10.8)
[2025-09-29 12:22] LABS: Appearance Urine Clear (Clear); Bacteria Urine Automated None Seen (None Seen); Epithelial Cell Urine Auto 0-2 /hpf (0-2); Glucose Urine UA 2+ (Negative); RBC Urine Automated >20 /hpf (0-2); WBC Urine Automated 0-5 /hpf (0-5)
--- NOTE | 2025-09-29 12:22 | CT Scan Report ---
CT SCAN OF THE BRAIN WITHOUT IV CONTRAST CLINICAL HISTORY: Generalized weakness. Change in mental status. Hallucinations. COMPARISON STUDY: CT of the brain dated 02/19/2025. TECHNIQUE: Unenhanced CT scan of the brain is performed from the vertex to the skull base. Images are reviewed in the axial, sagittal, coronal planes. A dose lowering technique was utilized adhering to the principles of ALARA. CT DOSE: 703.85 mGy.cm FINDINGS: Brain parenchyma: Small foci of high right frontoparietal encephalomalacia are unchanged and consiste nt with a remote insult. There is age-related involutional change noting moderate subcortical and per iventricular microangiopathic disease. There is no hemorrhage, mass effect, or evidence of acute terr itorial ischemia by CT criteria. Lynn-white matter differentiation is preserved. No extra-axial fluid collection is seen. Ventricles, sulci, cisterns: Prominent secondary to involutional change. Intracranial vasculature: There is atherosclerotic calcification of the cavernous carotid arteries. Calvarium: Unremarkable. Sinuses and mastoids: The visualized paranasal sinuses are clear. The mastoid air cells are well pneu matized. Orbits: The bony orbits are grossly intact. There are bilateral ocular lens implants. IMPRESSION: There is no hemorrhage, mass effect, or evidence of acute territorial ischemia by CT paty armstrong. ACT 112: Negative or not required by law. Electronically signed by: Alverto Jara M.D. 09/29/2025 12:19 PM
[2025-09-29 12:24] LABS: Acetaminophen < 3 ug/ml (10-30); Salicylate < 3.0 mg/dl (3.0-30)
[2025-09-29 12:36] LABS: Alanine Aminotransferase 30 U/L (7-52); Albumin Globulin Ratio 1.0 (0.9-2); Albumin Level 3.5 gm/dl (3.4-5.0); Alkaline Phosphatase 84 U/L (34-104); Bilirubin,Total 1.0 mg/dl (0.2-1.0); Blood Urea Nitrogen 49 mg/dl (6-23); Calcium 9.2 mg/dl (8.6-10.3); Carbon Dioxide 27 mmol/L (21-32); Chloride 114 mmol/L (98-107); Creatinine Clr Calc Pharmacy 53.3 ml/min; Globulin 3.4 gm/dl (2.5-4.0); Glucose 334 mg/dl (70-99(Fasting)); Total Protein 6.9 gm/dl (6.0-8.3)
[2025-09-29 12:43] LABS: Thyroid Stimulating Hormone 2.105 uIu/ml (0.300-4.500)
[2025-09-29 12:48] LABS: Amphetamines+Metham, Urine Neg (Neg); MDMA (Ecstacy), Urine Neg (Neg); Marijuana, Urine Neg (Neg)
--- NOTE | 2025-09-29 12:59 | Electrocardiogram Report ---
Test Reason : Blood Pressure : */* mmHG Vent. Rate : 79 BPM Atrial Rate : 79 BPM P-R Int : 158 ms QRS Dur : 96 ms QT Int : 392 ms P-R-T Axes : 23 3 71 degrees QTcB Int : 449 ms Normal sinus rhythm with sinus arrhythmia Nonspecific T wave abnormality Abnormal ECG When compared with ECG of 25-Jan-2025 20:17, Nonspecific T wave abnormality now evident in Lateral leads Confirmed by Trevor Hemphill ([id number]) on 09/29/2025 12:59:00 PM Referred By: Confirmed By: Trevor Hemphill
--- NOTE | 2025-09-29 13:07 | Emergency Department Note ---
Impression & Plan Acute hypernatremia, Hallucination, Depression ED Provider Note Provider: Adolfo Davis MD CHIEF COMPLAINT: Depression, hallucinations, not participating in care HISTORY OF PRESENT ILLNESS: Patient is a 85-year-old gentleman history of type 2 diabetes, CVA, esophageal cancer status postsurgery with GJ tube feedings presenting here today with daughter and . Patient lives at home with and daughter is visiting from [place]. Evidently over the last week or so the patient said worsening hallucinations and depression. Not completing care at home and therapies as well. Not telling when his tube feeds air overnight to get them restarted. Patient did have a trial of decreased tube feeds recently to 12 hours a day but was losing weight and was increased back to 18 hours a day. According to family it seems like the patient did stop in not always take his medications as appropriate the last several weeks including his antidepressant. He has been more isolating and does not want social interaction and is not participating in even walks around the [facility] where he lives as much. Patient endorses generalized depression. 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 EOMI. NECK: Trachea midline. Good range of motion ENT: Mucous membranes pink and moist. LUNGS: Airway patent. No retractions. Breath sounds clear with good air entry bilaterally. HEART: Regular rate and rhythm. No chest wall tenderness ABDOMEN: Soft and non-tender, without guarding or rebound. GJ tube in place in the left abdomen. Tube feeds running. SKIN: Acyanotic, warm, dry, without rashes EXTREMITIES: Without swelling, tenderness or deformity NEUROLOGICAL: No focal deficits. No aphasia. No facial droop or slurred speech. Normal strength and tone in the extremities. Sensation to gross touch normal. Psych: Flattened affect. Endorses depression and at times visual hallucinations. Not responding to external stimuli. No HI reported. EK bpm normal sinus rhythm with sinus arrhythmia. No PVC. No acute ST segment elevation or depression with QTc of 449. CONTINUOUS CARDIAC MONITORING: was ordered and showed a heart rate of 70s to 80s bpm in normal sinus rhythm occasional sinus arrhythmia Patient's laboratory studies and imaging reviewed. Differential includes Mood disorder, infection, hypoglycemia, electrolyte abnormalities, cardiac sources, intracerebral event, toxicologic, trauma, neurologic, as well as other pathologies. IMPRESSION/MEDICAL DECISION MAKING: Hard to tell if some of his symptoms are just depression related to his chronic illness versus maybe dehydration from interruptions due to his tube feedings sensation or secondary to medications. Medical work was completed with his hallucinations. He is in no distress without focal deficits here and I doubt CVA. CT of the head without acute findings per radiology. Chest x-ray without evidence of pneumonia. Blood work without significant leukocytosis and I doubt this is infectious. Urinalysis some blood but no evidence of infection. No signs of renal dysfunction or significant uremia. Electrolytes return with evidence of hypernatremia sodium rising to 150. This could be contributing to some of his symptoms. Will bring in medically for hydration and if ongoing symptoms possible consideration of psychiatric consultation. Do not believe he needs a sitter at this time. He is much more passive and hopeless and depressed and does not seem to be actively trying to harm himself. DIAGNOSIS: Hypernatremia, hallucinations, depression DISPOSITION: Hospitalist will evaluate Patient was agreeable with this plan. Past Med/Surg History Problem List (Updated 09/29/25 @ 13:37 by Adolfo Davis M.D.) Depression (Acute) Hallucination (Acute) Acute hypernatremia (Acute) Feeding tube dysfunction (Acute) Acute dysfunction of right eustachian tube Epistaxis Weakness status post cerebrovascular accident Current use of proton pump inhibitor Type 2 diabetes mellitus Esophageal cancer Gastroenteritis On clopidogrel therapy (Acute) Iron deficiency (Acute) GIB (gastrointestinal bleeding) (Acute) Anemia (Acute) Chest pressure Chest pain (Acute) Bilateral carotid artery disease Gout Acute foot pain (Acute) History of CVA (cerebrovascular accident) (Acute) 07/09/24 Numbness and tingling of right arm (Acute) Vertigo Hypercholesteremia Diabetes Kidney disease Upper extremity neuropathy (Acute 10/06/13) Occipital neuralgia (Acute) Left ear injury (Acute) Headache (Acute) Stomach problems (Chronic) Urinary problem (Chronic) Medical History History of chemotherapy HTN (hypertension) Hyperglycemia due to type 2 diabetes mellitus TIA (transient ischemic attack) Hypothyroid Weight loss H/O transfusion of packed red blood cells Renal cyst Hepatic cyst LVH (left ventricular hypertrophy) CKD (chronic kidney disease) History of depression Hypothyroidism HTN (hypertension) Gout Diabetes mellitus, type 2 Hx: UTI (urinary tract infection) Hx of sepsis Carotid stenosis History of bladder cancer Urinary frequency CVA (cerebral vascular accident) Surgical History H/O endoscopy H/O transcarotid artery revascularization (TCAR) History of transcarotid artery revascularization (TCAR) History of bladder surgery Hx of Achilles tendon repair Hx of colonoscopy Hx of appendectomy Family History Mother Hypertension Father Tuberculosis Denies family history of Ovarian cancer Prostate cancer Myocardial infarction Breast cancer Social History Smoking Status: Never smoker Tobacco Type: Cigarettes and Declines Age Started Using Tobacco: 0; packs per day: 0; Second Hand Exposure: No; Do You Dip or Chew Tobacco: No; Hx Alcohol Use: No Hx Substance Use: No Preferred Language: Macanese Communication Ability: Effective Hearing Ability: Normal Station Chief Required: No Beliefs That Will Affect Care: None marital status: Current Living Situation: Spouse and Other Current Living Situation Comment: [place] current occupational status: retired 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 Feels Safe at Home: Yes caffeine: No Dental Care, Regularly: No Gender Identity: Male Assistive Devices: Glasses and Walker Allergies Allergies Allergy/AdvReac Type Severity Reaction Status Date / Time shellfish derived Allergy Intermediate Diarrhea Verified 08/19/25 12:21 Home Meds Home Medications Medication Instructions Recorded Confirmed clopidogrel 75 mg tablet (Plavix) 75 mg feeding tube QAM 07/16/24 08/19/25 lisinopril 5 mg tablet 5 mg feeding tube DAILY 01/09/25 08/19/25 aspirin 81 mg chewable tablet 81 mg feeding tube DAILY 05/01/25 08/19/25 metformin 500 mg/5 mL oral 1,000 mg feeding tube BID 06/05/25 08/19/25 solution (Riomet) ondansetron HCl 4 mg/5 mL oral 4 mg feeding tube Q8H PRN Nausea 06/05/25 08/19/25 solution atorvastatin 80 mg tablet 80 mg feeding tube HS 07/13/25 08/19/25 loperamide 1 mg/7.5 mL oral liquid 2 mg feeding tube UD PRN Diarrhea 07/13/25 08/19/25 polyethylene glycol 3350 17 17 g feeding tube UD PRN 07/13/25 08/19/25 gram/dose oral powder Constipation Previous Rx's Medication Instructions Recorded verapamil 80 mg tablet 80 mg feeding tube TID #90 tabs 07/17/25 levothyroxine 25 mcg tablet 25 mcg feeding tube DAILYBB #30 07/31/25 tabs furosemide 10 mg/mL oral solution 20 mg (2 mL) feeding tube QAM #120 09/08/25 mL lansoprazole 30 mg delayed 30 mg feeding tube DAILY 09/11/25 release,disintegrating tablet Indigestion #30 tabs sertraline 25 mg tablet 25 mg feeding tube DAILY #30 tabs 09/11/25 Results & Data (ED) Vital Signs Vital Signs - 24 hr 09/29/25 10:54 09/29/25 11:15 09/29/25 11:17 Temperature 36.4 C L Temperature Source Temporal Artery Scan Pulse Rate 96 H 83 84 Pulse Rate [Right Finger] Pulse Rate from SpO2 Sensor 82 Pulse Rhythm [Right Finger] Pulse Strength [Right Finger] Respiratory Rate 17 22 Respiratory Effort / Characteristics Non-Labored Spontaneous Respiratory Depth Normal Respiratory Pattern Regular Blood Pressure 109/68 Blood Pressure [Right Arm] Blood Pressure Mean 81 Blood Pressure Mean [Right Arm] Blood Pressure Position [Right Arm] Pulse Oximetry 97 97 Oxygen Delivery Method Room Air Sepsis Recent Fever Within 48 Hours No Sepsis New/Unexplained Change in Mental Status N/A Sepsis Action Taken by Nursing No Action Required 09/29/25 11:21 09/29/25 11:21 09/29/25 11:30 Temperature 36.7 C Temperature Source Oral Pulse Rate 80 82 Pulse Rate [Right Finger] 81 Pulse Rate from SpO2 Sensor 81 82 Pulse Rhythm [Right Finger] Regular Pulse Strength [Right Finger] Normal Respiratory Rate 16 20 20 Respiratory Effort / Characteristics Non-Labored Respiratory Depth Normal Respiratory Pattern Regular Blood Pressure Blood Pressure [Right Arm] 129/61 Blood Pressure Mean Blood Pressure Mean [Right Arm] 83 Blood Pressure Position [Right Arm] Semi-fowlers Pulse Oximetry 96 96 97 Oxygen Delivery Method Room Air Sepsis Recent Fever Within 48 Hours Sepsis New/Unexplained Change in Mental Status Sepsis Action Taken by Nursing 09/29/25 11:42 09/29/25 12:33 09/29/25 12:33 Temperature Temperature Source Pulse Rate 80 Pulse Rate [Right Finger] Pulse Rate from SpO2 Sensor 81 Pulse Rhythm [Right Finger] Pulse Strength [Right Finger] Respiratory Rate 23 Respiratory Effort / Characteristics Respiratory Depth Respiratory Pattern Blood Pressure 119/68 119/68 Blood Pressure [Right Arm] Blood Pressure Mean 88 88 Blood Pressure Mean [Right Arm] Blood Pressure Position [Right Arm] Pulse Oximetry 96 Oxygen Delivery Method Sepsis Recent Fever Within 48 Hours Sepsis New/Unexplained Change in Mental Status Sepsis Action Taken by Nursing Laboratory Data 09/29/25 11:45 09/29/25 12:47 Lab Results 09/29/25 09/29/25 09/29/25 Range/Units 11:45 12:00 12:47 WBC 8.30 (4.8-10.8) K/ul RBC 3.79 L (4.70-6.10) M/uL Hgb 12.1 L (14.0-18.0) g/dL Hct 37.7 L (42.0-52.0) % MCV 99.5 (80.0-100.0) fL MCH 31.9 (25.0-34.0) pg MCHC 32.1 (32.0-36.0) g/dL RDW Std Deviation 51.5 H (36.4-46.3) fL RDW Coeff of Parvin 14.2 (11.5-14.5) % Plt Count 165 (130-400) K/uL MPV 11.0 (9.4-12.4) fL Immature Gran % (Auto) 0.6 % Neut % (Auto) 80.4 % Lymph % (Auto) 9.3 % [place] % (Auto) 6.5 % Eos % (Auto) 2.8 % Baso % (Auto) 0.4 % Neut # (Auto) 6.68 H (1.40-6.50) K/uL Lymph # (Auto) 0.77 L (1.20-3.40) K/uL [place] # (Auto) 0.54 (0.11-0.59) K/uL Eos # (Auto) 0.23 (0.00-0.50) K/uL Baso # (Auto) 0.03 (0.00-0.20) K/uL Immature Gran # (Auto) 0.05 (0.01-0.20) K/uL Sodium TNP 150 H Potassium TNP 4.3 Chloride 114 H (98-107) mmol/L Carbon Dioxide 27 (21-32) mmol/L Anion Gap TNP BUN 49 H (6-23) mg/dl Creatinine 0.83 (0.6-1.4) mg/dl Est Cr Clr Drug Dosing 53.3 ml/min eGFR 86.30 BUN/Creatinine Ratio 59.0 H (10-20) Glucose 334 H* (70-99(Fasting)) mg/dl Calcium 9.2 (8.6-10.3) mg/dl Total Bilirubin 1.0 (0.2-1.0) mg/dl AST TNP 15 ALT 30 (7-52) U/L Alkaline Phosphatase 84 (34-104) U/L Total Protein 6.9 (6.0-8.3) gm/dl Albumin 3.5 (3.4-5.0) gm/dl Globulin 3.4 (2.5-4.0) gm/dl Albumin/Globulin Ratio 1.0 (0.9-2) TSH 2.105 (0.300-4.500) uIu/ml Urine Color Yellow Urine Appearance Clear (Clear) Urine pH 5.5 (4.5-7.5) Ur Specific [place] 1.020 (1.000-1.030) Urine Protein Negative (Negative) Urine Glucose (UA) 2+ H (Negative) Urine Ketones Negative (Negative) Urine Blood 2+ H (Negative) Urine Nitrite Negative (Negative) Urine Bilirubin Negative (Negative) Urine Urobilinogen Negative (Negative) Ur Leukocyte Esterase Negative (Negative) Urine WBC (Auto) 0-5 (0-5) /hpf Urine RBC (Auto) >20 H (0-2) /hpf U Hyaline Cast (Auto) 3-5 H (0-2) /lpf U Epithel Cells (Auto) 0-2 (0-2) /hpf Urine Bacteria (Auto) None Seen (None Seen) Urine Comment Salicylates < 3.0 L (3.0-30) mg/dl Urine Opiates Screen Neg (Neg) Ur Methadone, Qual Neg (Neg) Urine Fentanyl Screen Neg (Neg) Acetaminophen < 3 L (10-30) ug/ml Urine Barbiturates Neg (Neg) Ur Phencyclidine (PCP) Neg (Neg) U Amphetamin/Meth Scrn Neg (Neg) MDMA (Ecstasy) Screen Neg (Neg) U Benzodiazepines Scrn Neg (Neg) Ur Cocaine Metabolite Neg (Neg) U Marijuana (THC) Screen Neg (Neg) Ethyl Alcohol mg/dL < 10.0 (<10.0) mg/dl Administered Medications Parenteral Electrolytes (Plasma-Lyte A Ph 7.4) 1,000 mls @ 999 mls/hr IV .Q1H1M ONE Stop: 09/29/25 14:25 Last Admin: 09/29/25 13:53 Dose: 999 mls/hr Documented By: [facility] Imaging Data Radiologist's Impression: Head CT 09/29/25 11:26 CT SCAN OF THE BRAIN WITHOUT IV CONTRAST CLINICAL HISTORY: Generalized weakness. Change in mental status. Hallucinations. COMPARISON STUDY: CT of the brain dated 02/19/2025. TECHNIQUE: Unenhanced CT scan of the brain is performed from the vertex to the skull base. Images are reviewed in the axial, sagittal, coronal planes. A dose lowering technique was utilized adhering to the principles of ALARA. CT DOSE: 703.85 mGy.cm FINDINGS: Brain parenchyma: Small foci of high right frontoparietal encephalomalacia are unchanged and consistent with a remote insult. There is age-related involutional change noting moderate subcortical and periventricular microangiopathic disease. There is no hemorrhage, mass effect, or evidence of acute territorial ischemia by CT criteria. Lynn-white matter differentiation is preserved. No extra-axial fluid collection is seen. Ventricles, sulci, cisterns: Prominent secondary to involutional change. Intracranial vasculature: There is atherosclerotic calcification of the cavernous carotid arteries. Calvarium: Unremarkable. Sinuses and mastoids: The visualized paranasal sinuses are clear. The mastoid air cells are well pneumatized. Orbits: The bony orbits are grossly intact. There are bilateral ocular lens implants. IMPRESSION: There is no hemorrhage, mass effect, or evidence of acute territorial ischemia by CT criteria. ACT 112: Negative or not required by law. Electronically signed by: Alverto Jara M.D. 09/29/2025 12:19 PM Chest X-Ray 09/29/25 11:27 XR chest 1V portable CLINICAL HISTORY: weak, hallucations COMPARISON STUDY: 01/25/2025 FINDINGS: Stable right chest port. Heart size and pulmonary vasculature are normal. Skinfold artifact overlies the right chest. No consolidation or pleural effusion seen. No pneumothorax. IMPRESSION: No acute findings. ACT 112: Negative or not required by law. Electronically signed by: Surya Mjeia M.D. 09/29/2025 11:41 AM Discharge Plan Visit Data Chief Complaint: Referred by Doctor Stated Complaint: REF BY DOC ED Provider: Adolfo Davis Discharge Problem: Acute hypernatremia, Hallucination, Depression Patient Disposition: Being Evaluated by Hospitalist Condition: Fair Forms Stand Alone Forms: My [facility] Prescriptions Prescriptions: No Action levothyroxine 25 mcg tablet 25 mcg feeding tube DAILYBB Qty: 30 3RF furosemide 10 mg/mL solution 20 mg feeding tube QAM Qty: 120 0RF sertraline 25 mg tablet 25 mg feeding tube DAILY Qty: 30 2RF lansoprazole 30 mg tablet,disintegrat, delay rel 30 mg feeding tube DAILY Qty: 30 3RF metformin [Riomet] 500 mg/5 mL solution 1,000 mg feeding tube BID ondansetron HCl 4 mg/5 mL solution 4 mg feeding tube Q8H PRN (Reason: Nausea) verapamil 80 mg tablet 80 mg feeding tube TID Qty: 90 3RF Rx Instructions: take at 0800 & 1400 & 2000 clopidogrel [Plavix] 75 mg tablet 75 mg feeding tube QAM lisinopril 5 mg tablet 5 mg feeding tube DAILY aspirin 81 mg Tablet,Chewable 81 mg feeding tube DAILY atorvastatin 80 mg tablet 80 mg feeding tube HS polyethylene glycol 3350 17 gram/dose Powder 17 g feeding tube UD PRN (Reason: Constipation) loperamide 1 mg/7.5 mL Liquid 2 mg feeding tube UD PRN (Reason: Diarrhea) Referrals Referrals: ProJuanjo MD [Primary Care Provider] -
[2025-09-29 13:20] LABS: Potassium 4.3 mmol/L (3.5-5.1); Sodium 150.0 mmol/L (136-145)
[2025-09-29] MEDS: PLASMA-LYTE A 1,000 ML IV ONE (13:53)
[2025-09-29] MEDS ORDERED: MELATONIN 3 MG TAB PO PRN (14:05)
[2025-09-29] MEDS ORDERED: POLYETHYLENE (MIRALAX) 17 GM PACK PO PRN (14:05)
[2025-09-29] MEDS ORDERED: ACETAMINOPHEN 325 MG TAB PO PRN (14:05)
[2025-09-29] MEDS ORDERED: ONDANSETRON INJ 2 MG/ML 2 ML VIAL IV PRN (14:05)
--- NOTE | 2025-09-29 14:33 | History & Physical Report ---
"Date of Service September 29, 2025 Assessment & Plan (1) Acute hypernatremia: (2) Depression: (3) Feeding tube dysfunction: (4) Anxiety: (5) Weight loss: Plan This is an 85 year old gentleman with past medical history of esophageal cancer s/p esophagectomy, type 2 DM, s/p CVA who presented to the ED on 09/29/2024 for depression, and failure to participate in care. While in the ED he was found to have anemia within his baseline with a hgb of 12.1. His sodium was found to be elevated at 150, K stable at 4.3. BG elevated at 334. Serum/Urine osmol are pending. LFTs WNL. TSH WNL. Urinalysis negative for infection. CXR & head CT were negative. #Dehydration | Hypernatremia | Weight loss w/ inability to complete PEG tube feedings at home, not alerting family when feedings are not working. Has not been eating foods PO lately secondary to anxiety surrounding swallowing. NA 150 on admission, baseline typically 136-139. Urine/serum osmol pending. K stable at 4.3, replete electrolytes as necessary following IVF. Hgb stable at 12.1, within baseline of 11.3-12.2 s/p 1L Plasma-lyte, additional 1L ordered on admission. Dietitian consulted, appreciate recommendations. AM labs including CBC, BMP, Mag, Phosphorous, Iron panel, Vit B12, Vit B1, and Folate #Depression | anxiety w/ ongoing anxiety & depression on outpatient basis. On 25mg sertraline daily. Per family, patient is anxious regarding swallowing/his medical conditions. Depression has worsened, affecting his abilities to complete tube feedings & participate in ADL's. Unsure if SI given patients lack of participation in answering ROS during admission. Consulted psychiatry, appreciate recommendations #Esophageal cancer | s/p esophagectomy | Presence of PEG tube. Pt may be having discomfort to tube feedings; peg tube w/ mild erythema & purulent drainage on admission. culture of surrounding peg area pending - defer abx therapy until culture results. Pt afebrile & no WBC currently. Dietitian consulted as above. Follows w/ heme/onc, most recent PET scan showing no convincing evidence of FDG avid metastatic disease. Follow up of FDG uptake in posterior right lower chest wall & sm left axillary lymph node. #HTN Home regimen includes verapamil, Lisinopril, & Lasix Discontinue Lasix as this contributes to dehydration --> will likely require adjustments of BP meds on discharge. #Type 2 DM Most recent A1c 04/2025 at 6.6%, on metformin at home. Update A1c in AM Sliding scale coverage, adjust as necessary #GERD - PPI #Hypothyroidism - TSH WNL, continue home levothyroxine dosing #HLD - continue statin #s/p CVA + carotid artery stent placement - continue ASA/Plavix DVT prophylaxis: Lovenox Code: full Updated & discussed w/ family at bedside 09/29. Case was discussed with Dr. Berry at time of admission. History of Present Illness Primary Care Provider: Juanjo Vanegas MD This is an 85 year old gentleman with past medical history of esophageal cancer s/p esophagectomy, type 2 DM, s/p CVA who presented to the ED on 09/29/2024 for depression, and failure to participate in care. Vernon was seen & examined with his and daughter at bedside. The patient is a poor historian and fails to actively participate in history taking. The daughter provides majority of history. Patient has been having ongoing battles with depression & anxiety for awhile now but has acutely worsened within the last week or so. the patient has been failing to make it known when his tube feedings are not working properly and he has been not completing his feedings secondary to this. The patient did nod his head that the feedings are causing him discomfort. The daughter also reports that he is obsessed with whether his tube is in the correct place. The daughter reports that the patient is able to eat some food by mouth but has great anxiety doing so. He has a stent in place in his carotid arteries and this affected his swallowing prior to his esophagectomy. The patient was seen by his PCP last month and declined a change in his mental health medications at that time. The patient was not able to respond to any additional ROS questions. Daughter reports he appears catatonic at times, does not engage with others anymore. reports he is also failing to participate in ADL's such as brushing teeth. Daughter reports he has to have someone tell him what to do and watch him at all times or else ADL's do not get performed. Reports this is a change from his baseline. The reports that there is also drainage around the peg tube and that it does not appear different than usual. She reports she cleans it once a day and puts ointment on it and covers with a dressing. While in the ED he was found to have anemia within his baseline with a hgb of 12.1. His sodium was found to be elevated at 150, K stable at 4.3. BG elevated at 334. Serum/Urine osmol are pending. LFTs WNL. TSH WNL. Urinalysis negative for infection. CXR & head CT were negative. Code discussion did take place with the patients family who does confirm that he is a full code. Allergies Allergy/AdvReac Type Severity Reaction Status Date / Time shellfish derived AdvReac Intermediate Diarrhea Verified 09/29/25 14:56 Home Medications Medication Instructions Recorded Confirmed Type clopidogrel 75 mg tablet (Plavix) 75 mg feeding tube QAM 07/16/24 09/29/25 History lisinopril 5 mg tablet 5 mg feeding tube DAILY 01/09/25 09/29/25 History aspirin 81 mg chewable tablet 81 mg feeding tube DAILY 05/01/25 09/29/25 History metformin 500 mg/5 mL oral 1,000 mg feeding tube BID 06/05/25 09/29/25 History solution (Riomet) ondansetron HCl 4 mg/5 mL oral 4 mg feeding tube Q8H PRN Nausea 06/05/25 09/29/25 History solution atorvastatin 80 mg tablet 80 mg feeding tube HS 07/13/25 09/29/25 History loperamide 1 mg/7.5 mL oral liquid 2 mg feeding tube UD PRN Diarrhea 07/13/25 09/29/25 History polyethylene glycol 3350 17 17 g feeding tube UD PRN 07/13/25 09/29/25 History gram/dose oral powder Constipation verapamil 80 mg tablet 80 mg feeding tube TID #90 tabs 07/17/25 09/29/25 Rx furosemide 10 mg/mL oral solution 20 mg (2 mL) feeding tube QAM #120 09/08/25 09/29/25 Rx mL lansoprazole 30 mg delayed 30 mg feeding tube HS Indigestion 09/29/25 09/29/25 History release,disintegrating tablet levothyroxine 25 mcg tablet 25 mcg feeding tube .DAILY@1400 09/29/25 09/29/25 History sertraline 25 mg tablet 25 mg feeding tube HS 09/29/25 09/29/25 History Past Med/Surg History Problem List (Updated 09/29/25 @ 14:32 by Jamila Corcoran PA-C) Anxiety Depression (Acute) Hallucination (Acute) Acute hypernatremia (Acute) Feeding tube dysfunction (Acute) Acute dysfunction of right eustachian tube Epistaxis Weakness status post cerebrovascular accident Current use of proton pump inhibitor Type 2 diabetes mellitus Esophageal cancer Gastroenteritis On clopidogrel therapy (Acute) Iron deficiency (Acute) GIB (gastrointestinal bleeding) (Acute) Anemia (Acute) Chest pressure Chest pain (Acute) Bilateral carotid artery disease Gout Acute foot pain (Acute) History of CVA (cerebrovascular accident) (Acute) 07/09/24 Numbness and tingling of right arm (Acute) Vertigo Hypercholesteremia Diabetes Kidney disease Upper extremity neuropathy (Acute 10/06/13) Occipital neuralgia (Acute) Left ear injury (Acute) Headache (Acute) Stomach problems (Chronic) Urinary problem (Chronic) Medical History History of chemotherapy HTN (hypertension) Hyperglycemia due to type 2 diabetes mellitus TIA (transient ischemic attack) Hypothyroid Weight loss H/O transfusion of packed red blood cells Renal cyst Hepatic cyst LVH (left ventricular hypertrophy) CKD (chronic kidney disease) History of depression Hypothyroidism HTN (hypertension) Gout Diabetes mellitus, type 2 Hx: UTI (urinary tract infection) Hx of sepsis Carotid stenosis History of bladder cancer Urinary frequency CVA (cerebral vascular accident) Surgical History H/O endoscopy H/O transcarotid artery revascularization (TCAR) History of transcarotid artery revascularization (TCAR) History of bladder surgery Hx of Achilles tendon repair Hx of colonoscopy Hx of appendectomy Family History Mother Hypertension Father Tuberculosis Denies family history of Ovarian cancer Prostate cancer Myocardial infarction Breast cancer Social History Smoking Status: Never smoker Tobacco Type: Cigarettes and Declines Age Started Using Tobacco: 0; packs per day: 0; Second Hand Exposure: No; Do You Dip or Chew Tobacco: No; Hx Alcohol Use: No Hx Substance Use: No Preferred Language: Ukrainian Communication Ability: Effective Hearing Ability: Normal Pelt Shearer Required: No Beliefs That Will Affect Care: None marital status: Current Living Situation: Spouse and Other Current Living Situation Comment: [place] 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 did not appear tender to palpation. Extremities: no edema Neuro: A&O, does not engage in conversation. flat affect. Skin: intact, no lesions noted Results & Data Results & Data Vital Signs (Past 12 Hours) Vital Signs Temp Pulse Pulse Resp BP BP Pulse Ox 09/29/25 12:33 119/68 09/29/25 12:33 119/68 09/29/25 11:42 80 23 96 09/29/25 11:30 82 20 97 09/29/25 11:21 80 20 96 09/29/25 11:21 36.7 C 81 16 129/61 96 09/29/25 11:17 84 09/29/25 11:15 83 22 97 09/29/25 10:54 36.4 C L 96 H 17 109/68 97 O2 Del Method 09/29/25 12:33 09/29/25 12:33 09/29/25 11:42 09/29/25 11:30 09/29/25 11:21 09/29/25 11:21 Room Air 09/29/25 11:17 09/29/25 11:15 09/29/25 10:54 Room Air Code Status & VTE Plan VTE Prophylaxis Plan VTE Prophylaxis will be ordered: Yes Supervising Physician Co-Signing Physician Notes The patient was seen by me. The chart was reviewed. Case discussed with VANESSA Cage. Agree with assessment and plan PG Care Time/CCT Total # of Minutes Spent Total Time Spent with Patient: Total time spent is greater than 50% in coordination of care (as documented) at patient's floor/unit and/or counseling patient: Coding Level of Care Code 70597 INT INP/OBS CARE 75MIN Diagnoses Acute hypernatremia E87.0 Depression F32.A Feeding tube dysfunction T85.598A Encounter type: initial encounter Anxiety F41.9 Weight loss R63.4 (3) Feeding tube dysfunction Encounter type: initial encounter Qualified Code(s): T85.598A - Other mechanical complication of other gastrointestinal prosthetic devices, implants and grafts, initial encounter"
--- NOTE | 2025-09-29 14:50 | XRay Report ---
KUB HISTORY: check PEG tube placement COMPARISON STUDY: 06/22/2025 FINDINGS: Left upper quadrant jejunostomy tube was injected with contrast. The contrast conforms to t he tube and multiple loops of jejunum. No contrast leak seen. No evidence of bowel obstruction seen. IMPRESSION: Normal jejunostomy tube check. ACT 112: Negative or not required by law. The above report was generated using voice recognition software. It may contain grammatical, syntax o r spelling errors. Electronically signed by: Surya Mejia M.D. 09/29/2025 2:49 PM
[2025-09-29] MEDS: PLASMA-LYTE A 1,000 ML IV SCH (15:05)
[2025-09-29] MEDS ORDERED: LOPERAMIDE LIQUID 120 ML BOTTLE PEG PRN (15:50)
[2025-09-29] MEDS ORDERED: PATIENT'S OWN ENTERAL FEEDING JT SCH (16:15)
--- NOTE | 2025-09-29 16:33 | Oncology Consultation ---
Date of Consultation September 29, 2025 Assessment & Plan (1) Esophageal cancer: (2) Depression: Plan From esophageal cancer standpoint, no evidence to suggest recurrent disease. Struggling with depression following esophagectomy. Agree with psychiatry/palliative care involvement to help with depression. Transfer to [facility] for dislodged PEG tube. Outpatient follow-up with me upon discharge History of Present Illness Reason for Consultation: Esophageal cancer Attending Physician: Marcos Berry MD History of Present Illness Mr. Cao is an 85-year-old gentleman with history of adenocarcinoma of the GE junction for which he is status post neoadjuvant systemic therapy with FLOT followed by esophagectomy at [facility] on 04/14/2025 with pathology revealing near complete response. Ever since then, patient has struggled with multiple issues including malnutrition, aspiration and as a result of this has been increasingly frustrated and depressed. Was admitted due to dehydration, hypernatremia and dislodged PEG tube. Is currently awaiting transfer to [facility].His most recent PET/CT from 08/21/2025 was negative for disease recurrence Allergies Allergy/AdvReac Type Severity Reaction Status Date / Time shellfish derived AdvReac Intermediate Diarrhea Verified 09/29/25 14:56 Home Medications Medication Instructions Recorded Confirmed Type clopidogrel 75 mg tablet (Plavix) 75 mg feeding tube QAM 07/16/24 09/29/25 History lisinopril 5 mg tablet 5 mg feeding tube DAILY 01/09/25 09/29/25 History aspirin 81 mg chewable tablet 81 mg feeding tube DAILY 05/01/25 09/29/25 History metformin 500 mg/5 mL oral 1,000 mg feeding tube BID 06/05/25 09/29/25 History solution (Riomet) ondansetron HCl 4 mg/5 mL oral 4 mg feeding tube Q8H PRN Nausea 06/05/25 09/29/25 History solution atorvastatin 80 mg tablet 80 mg feeding tube HS 07/13/25 09/29/25 History loperamide 1 mg/7.5 mL oral liquid 2 mg feeding tube UD PRN Diarrhea 07/13/25 09/29/25 History polyethylene glycol 3350 17 17 g feeding tube UD PRN 07/13/25 09/29/25 History gram/dose oral powder Constipation verapamil 80 mg tablet 80 mg feeding tube TID #90 tabs 07/17/25 09/29/25 Rx furosemide 10 mg/mL oral solution 20 mg (2 mL) feeding tube QAM #120 09/08/25 09/29/25 Rx mL lansoprazole 30 mg delayed 30 mg feeding tube HS Indigestion 09/29/25 09/29/25 History release,disintegrating tablet levothyroxine 25 mcg tablet 25 mcg feeding tube .DAILY@1400 09/29/25 09/29/25 History sertraline 25 mg tablet 25 mg feeding tube HS 09/29/25 09/29/25 History Patient History Medical History History of chemotherapy HTN (hypertension) Hyperglycemia due to type 2 diabetes mellitus TIA (transient ischemic attack) Hypothyroid Weight loss H/O transfusion of packed red blood cells Renal cyst Hepatic cyst LVH (left ventricular hypertrophy) CKD (chronic kidney disease) History of depression Hypothyroidism HTN (hypertension) Gout Diabetes mellitus, type 2 Hx: UTI (urinary tract infection) Hx of sepsis Carotid stenosis History of bladder cancer Urinary frequency CVA (cerebral vascular accident) Surgical History H/O endoscopy H/O transcarotid artery revascularization (TCAR) History of transcarotid artery revascularization (TCAR) History of bladder surgery Hx of Achilles tendon repair Hx of colonoscopy Hx of appendectomy Family History Mother Hypertension Father Tuberculosis Denies family history of Ovarian cancer Prostate cancer Myocardial infarction Breast cancer Social History Smoking Status: Never smoker Tobacco Type: Cigarettes and Declines Age Started Using Tobacco: 0; packs per day: 0; Second Hand Exposure: No; Do You Dip or Chew Tobacco: No; Hx Alcohol Use: No Hx Substance Use: No Preferred Language: Kazakh Communication Ability: Effective Hearing Ability: Normal Floorleader Required: No Beliefs That Will Affect Care: Faith marital status: Current Living Situation: Spouse Current Living Situation Comment: [place] 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 Safe at Home: Yes caffeine: No Dental Care, Regularly: No Gender Identity: Male Assistive Devices: None Results & Data Vital Signs (Past 12 Hours) Vital Signs Temp Pulse Pulse Resp BP BP Pulse Ox 09/29/25 15:19 78 09/29/25 12:33 119/68 09/29/25 12:33 119/68 09/29/25 11:42 80 23 96 09/29/25 11:30 82 20 97 09/29/25 11:21 80 20 96 09/29/25 11:21 36.7 C 81 16 129/61 96 09/29/25 11:17 84 09/29/25 11:15 83 22 97 09/29/25 10:54 36.4 C L 96 H 17 109/68 97 O2 Del Method 09/29/25 15:19 09/29/25 12:33 09/29/25 12:33 09/29/25 11:42 09/29/25 11:30 09/29/25 11:21 09/29/25 11:21 Room Air 09/29/25 11:17 09/29/25 11:15 09/29/25 10:54 Room Air
[2025-09-29] MEDS: INSULIN ASPART PER UNIT CHARGE SC SCH (17:19)
[2025-09-29] MEDS: TUBE FEEDING WATER FLUSH JT SCH (19:58)
[2025-09-29] MEDS ORDERED: VERAPAMIL HCL 40 MG TAB PO SCH (21:00)
[2025-09-29] MEDS: VERAPAMIL HCL 40 MG TAB PO SCH (22:04)
[2025-09-29] MEDS: ENOXAPARIN INJ 40 MG/0.4 ML SYR SQ SCH (22:05)
[2025-09-29] MEDS: ATORVASTATIN 40 MG TAB PEG SCH (22:05)
[2025-09-30] MEDS: LEVOTHYROXINE SODIUM 25 MCG TABLET PEG SCH (05:15)
[2025-09-30 06:39] LABS: Hematocrit (blood only) 33.9 % (42.0-52.0); Hemoglobin 11.1 g/dL (14.0-18.0); Mean Corpuscular Hemoglobin 32.2 pg (25.0-34.0); Mean Corpuscular Volume 98.3 fL (80.0-100.0); Platelet Count 153 K/uL (130-400); RDW Standard Deviation 50.8 fL (36.4-46.3); Red Blood Count 3.45 M/uL (4.70-6.10); White Blood Count 7.74 K/ul (4.8-10.8)
[2025-09-30] MEDS ORDERED: Nursing to Pharmacy Communication SCH (07:00)
[2025-09-30 07:19] LABS: Anion Gap 6.0 (3-11); Blood Urea Nitrogen 35.0 mg/dl (6-23); Calcium 8.7 mg/dl (8.6-10.3); Carbon Dioxide 29.0 mmol/L (21-32); Chloride 115.0 mmol/L (98-107); Creatinine Clr Calc Pharmacy 70.2 ml/min; Glucose 170.0 mg/dl (70-99(Fasting)); Iron 92.0 mcg/dl (35-175); Magnesium 2.2 mg/dl (1.7-2.4); Potassium 4.1 mmol/L (3.5-5.1); Sodium 150.0 mmol/L (136-145); Total Iron Binding Cap Calc 234.0 mcg/dl (250-450); Transferrin 167.0 mg/dl (200-360); Transferrin (FE) Percent Satur 39.0 % (20-50)
[2025-09-30 07:29] LABS: Folate (Folic Acid),Ser orPlas 13.56 ng/ml (>5.38)
[2025-09-30 07:30] LABS: Vitamin B12 455.0 pg/ml (180-914)
[2025-09-30 07:37] LABS: Hemoglobin A1C 7.6 % (4.5-5.6)
[2025-09-30] MEDS: SODIUM CHLORIDE 0.45 % 1,000 ML IV SCH (07:48)
[2025-09-30] MEDS: SERTRALINE HCL 50 MG TABLET PEG SCH (07:50)
[2025-09-30] MEDS: LANSOPRAZOLE 30 MG SOLTAB PEG SCH (07:50)
[2025-09-30] MEDS: CLOPIDOGREL BISULFATE 75 MG TAB PEG SCH (07:50)
[2025-09-30] MEDS ORDERED: VERAPAMIL HCL 40 MG TAB PO SCH (08:00)
[2025-09-30] MEDS: ASPIRIN 81 MG CHEW PEG SCH (08:05)
--- NOTE | 2025-09-30 10:43 | Hospitalist Progress Note ---
"Date of Service September 30, 2025 Assessment & Plan (1) Acute hypernatremia: (2) Depression: (3) Feeding tube dysfunction: (4) Anxiety: (5) Weight loss: Plan This is an 85 year old gentleman with past medical history of esophageal cancer s/p esophagectomy, type 2 DM, s/p CVA who presented to the ED on 09/29/2024 for depression, and failure to participate in care. While in the ED he was found to have anemia within his baseline with a hgb of 12.1. His sodium was found to be elevated at 150, K stable at 4.3. BG elevated at 334. Serum/Urine osmol are pending. LFTs WNL. TSH WNL. Urinalysis negative for infection. CXR & head CT were negative. #Dehydration | Hypernatremia | Weight loss w/ inability to complete PEG tube feedings at home, not alerting family when feedings are not working. Has not been eating foods PO lately secondary to anxiety surrounding swallowing. NA 150 on admission, baseline typically 136-139. Urine/serum osmol pending. K stable at 4.3, replete electrolytes as necessary following IVF. Hgb stable at 12.1, within baseline of 11.3-12.2 s/p 1L Plasma-lyte, additional 1L ordered on admission. Dietitian consulted, appreciate recommendations. AM labs including CBC, BMP, Mag, Phosphorous, Iron panel, Vit B12, Vit B1, and Folate #Depression | anxiety w/ ongoing anxiety & depression on outpatient basis. On 25mg sertraline daily. Per family, patient is anxious regarding swallowing/his medical conditions. Depression has worsened, affecting his abilities to complete tube feedings & participate in ADL's. Unsure if SI given patients lack of participation in answering ROS during admission. Consulted psychiatry, appreciate recommendations #Esophageal cancer | s/p esophagectomy | Presence of PEG tube. Pt may be having discomfort to tube feedings; peg tube w/ mild erythema & purulent drainage on admission. culture of surrounding peg area pending - defer abx therapy until culture results. Pt afebrile & no WBC currently. Dietitian consulted as above. Follows w/ heme/onc, most recent PET scan showing no convincing evidence of FDG avid metastatic disease. Follow up of FDG uptake in posterior right lower chest wall & sm left axillary lymph node. #HTN Home regimen includes verapamil, Lisinopril, & Lasix Discontinue Lasix as this contributes to dehydration --> will likely require adjustments of BP meds on discharge. #Type 2 DM Most recent A1c 04/2025 at 6.6%, on metformin at home. Update A1c in AM Sliding scale coverage, adjust as necessary #GERD - PPI #Hypothyroidism - TSH WNL, continue home levothyroxine dosing #HLD - continue statin #s/p CVA + carotid artery stent placement - continue ASA/Plavix DVT prophylaxis: Lovenox Code: full Updated & discussed w/ family at bedside 09/29. Case was discussed with Dr. Berry at time of admission. Admission and Anticipated Discharge Date Admission Date: September 29, 2025 Results & Data Results & Data Vital Signs (Past 12 Hours) Vital Signs Temp Pulse Resp BP Pulse Ox O2 Del Method 09/30/25 07:26 36.4 C L 76 16 147/74 H 97 Room Air PG Care Time/CCT Total # of Minutes Spent Total Time Spent with Patient: Total time spent is greater than 50% in coordination of care (as documented) at patient's floor/unit and/or counseling patient: Coding Diagnoses Acute hypernatremia E87.0 Depression F32.A Feeding tube dysfunction T85.598A Encounter type: initial encounter Anxiety F41.9 Weight loss R63.4 (3) Feeding tube dysfunction Encounter type: initial encounter Qualified Code(s): T85.598A - Other mechanical complication of other gastrointestinal prosthetic devices, implants and grafts, initial encounter"
--- NOTE | 2025-09-30 12:32 | Communication Note ---
Date of Service: September 30, 2025 85 year old male with history of esophageal CA s/p chemotherapy and esophagectomy through [facility] w/ surgically placed J-tube. GI was asked to evaluate his J-Tube as there was concern for placement. He had a KUB w/ gastrograffin yesterday which was reported as "normal jejunostomy tube check." Upon entering the room Mr. Cao made me aware the tube is "not inside anymore." Upon assessment, the J tube is not in place. He does not recall exactly when this occurred but suggests sometime today. Given his gastrointestinal and surgical history, recommend he have surgical evaluation for J-tube placement if alternate means of nutrition are still required. This was originally placed by Thoracic Medicine at [facility]. Recall GI as needed.
--- NOTE | 2025-09-30 13:04 | Psychiatric Consultation ---
Date of Consultation September 30, 2025 Impression / Recommendations Impression Diagnostically consistent with major depressive disorder with possible psychotic features given new hallucinations of hearing music playing in the context of ongoing medical issues, pain, recent surgery and new issues with his J-tube. Also possible he has a mild hypoactive delirium contributing to low motivation, depression and hallucinations. Acute risk of self-harm is moderate given ongoing depression and SI but also with strong family support, no prior attempts, no command hallucinations, no evidence for current delusions and willingness to engage in treatment. He currently feels safe and feels he can alert RN if this changed and I updated RN. I think 15 minute checks are safe at this point but I think 1-on-1 is also reasonable if any new concerns arise. Would increase his sertraline to 50mg daily and add on Seroquel 12.5mg HS to help with depression augmentation, sleep, appetite and hallucinations. If this doesn't help his sleep or low motivation persists then would stop Seroquel and trial off-label use of modafinil 100mg daily if safe from cardiac standpoint (could start with 50mg and go up the next day). If SI worsens or depression doesn't improve despite ongoing medical treatment then we could explore geriatric psychiatry but this would require medical stabilization and potential challenges with his feeding tube. Overall, I spent a total of 60 minutes with this case including review of chart records, review of labwork, review of EKG QTc, direct evaluation of the patient at bedside, counseling the patient, discussion of the patient with the Nurse and with the hospitalist provider, discussion with the psychiatric liason during clinical rounds and documentation in the electronic health record. (1) Depression: (2) Hallucination: (3) Anxiety: Plan -Low threshold for 1-on-1, would start 15 minute safety checks. Typically would consider 1-on-1 due to periods of SI but he also values his privacy, feels safe currently, feels able to alert nursing if he were to feel unsafe or desire additional support and I worry that a 1-on-1 could worsen his mood and make him more hesitant to discuss his mental health symptoms transparently (as sometimes a 1-on-1 is experienced as something punitive). Recommend medical team continues to monitor risk/benefit for this closely and adjust accordingly. -Increase sertraline to 50mg daily via crushed via feeding tube -Start Seroquel 12.5mg HS for depression augmentation and insomnia * If Seroquel is not well tolerated, or there are concerns for safety given his history of CVA, then recommend depression augmentation with modafinil 100mg daily as off-label use -If symptoms do not improve after medical clearance then we could consider geriatric psychiatry referral though facilities may be unable to accommodate his feeding tube -If symptoms persist consider involvement of palliative care Psych History Identifying Data Vernon Cao is an 85 year old gentleman with past medical history of esophageal cancer s/p esophagectomy, type 2 DM, s/p CVA who presented to the ED on 09/29/2024 for depression, and failure to participate in care and was medically admitted and now with possible infection and issues with his J-tube. Psychiatry consulted for "depression". Chief Complaint "I'm bleeding and losing blood around my feeding tube". History of Present Illness Vernon describes having a major surgery in April for esophageal cancer and a more recent surgery last week to try to help with throat pain and symptoms. Today he notes that his feeding tube site has been bleeding which has never happened before and this is causing him some anxiety. He shows us the site notes that nursing recently cleaned up some of the bleeding but he worries it may be continuing to bleed. Reviewed his concerns, examined with psychiatric liaison J-tube site which did not show any new signs of blood and alerted his nurse. Today he reports ongoing depression that has been going on for "several weeks". He describes a history of depression at previous points in his life but "never this bad". In the past he was able to deal with his depression by "thinking about new ideas about science". 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. Currently he endorses intermittent suicidal ideation and while he denies any specific plans nor intent does state that while he was at home and then here at the hospital had "looked around to see if there was anything but there is nothing here I can find" to harm himself. He denies any history of previous suicide attempts. He denies any access to guns. He was started on sertraline a few weeks ago but has not noticed any benefit from this so far. He states he has been adherent with taking this. He describes general hopelessness loss of interest and difficulty sleeping with low motivation. States in recent weeks he has been hearing music "hearing a band" which he has never experienced before. He is interested in adjusting his medications and trying something new to help with these auditory hallucinations his sleep and his depression. He currently feels safe in the hospital and agrees that he could alert nursing if his suicidal thoughts intensified or if he felt unable to remain safe. He also endorses some anxiety but he feels his depression is more problematic. Anxiety seems to present itself as thinking about worries at bedtime and this seems to be what interferes with falling asleep. He describes ongoing pain related to his previous esophageal cancer. Additional information per psychiatric liaison note from 09/30/2025: "Met with pt for consult service night of 09/29. Pt lying in bed. Pt's sitting next to him in chair at bedside. Pt willing for to stay and provide supplemental information during conversation. Pt alert and oriented x4. Pt appears flat and depressed. Pt and are soft spoken and were sometimes difficult to hear. Pt states SI, depression, and auditory hallucinations for the past several weeks. Pt denies ever having a plan for SI. states he might have started to think of a plan but she is unsure. Pt able to contract for safety in the hospital at this time. Pt states he has been having SI multiple times per day since it started. Pt states auditory hallucinations are not command in nature. Pt unable to state what he has been hearing. When liaison asked about pt's stressors he said his brain but was unable to initially elaborate. When asked more questions, pt began to say due to not being able to eat and struggling with his tube feeds and maintaining weight, pt agreed he started to give up hope and lose interest in going on. Pt states his strokes and surgeries have taken a toll on his mental health. Pt states having one stroke in 2010 and the other in the fall of 2023. Pt denies having mental health history before the strokes. Pt's states pt becoming more depressed since April when he had an esophageal surgery. Pt had another esophageal surgery last week. Pt states he has not been doing activities he normally enjoys doing. Pt states he lives at [facility] at [facility] with his . Pt states he used to enjoy painting, playing the [place], and going for walks but hasn't been interested lately. Pt denies hx of suicide attempts. Denies past psych admissions. Pt states he used to have a psychiatrist "Dr. Reese" but not currently (maybe retired). Pt states he has seen his current therapist twice, Vani Hi. Pt states he is currently prescribed Zoloft through his pcp. states he has not been taking it consistently. had mirtazapine written down as a trialed medication. Pt's med rec showed a past fill of escitalopram from January but pt and claimed they never heard of it. Pt denies past trauma or abuse hx. Denies current or past substance use including alcohol and tobacco. Denies access to firearms. Denies legal issues. Pt states he has been getting only 2 hours of sleep per night. Pt's nutrition is through a feeding tube but denies any motivation to continue with them. ROIs signed for pt's - Lana Cao, and therapist- Vani Hi. PHQ-9=21, #9=3. " Allergies Allergy/AdvReac Type Severity Reaction Status Date / Time shellfish derived AdvReac Intermediate Diarrhea Verified 09/29/25 14:56 Home Medications Medication Instructions Recorded Confirmed Type clopidogrel 75 mg tablet (Plavix) 75 mg feeding tube QAM 07/16/24 09/29/25 History lisinopril 5 mg tablet 5 mg feeding tube DAILY 01/09/25 09/29/25 History aspirin 81 mg chewable tablet 81 mg feeding tube DAILY 05/01/25 09/29/25 History metformin 500 mg/5 mL oral 1,000 mg feeding tube BID 06/05/25 09/29/25 History solution (Riomet) ondansetron HCl 4 mg/5 mL oral 4 mg feeding tube Q8H PRN Nausea 06/05/25 09/29/25 History solution atorvastatin 80 mg tablet 80 mg feeding tube HS 07/13/25 09/29/25 History loperamide 1 mg/7.5 mL oral liquid 2 mg feeding tube UD PRN Diarrhea 07/13/25 09/29/25 History polyethylene glycol 3350 17 17 g feeding tube UD PRN 07/13/25 09/29/25 History gram/dose oral powder Constipation verapamil 80 mg tablet 80 mg feeding tube TID #90 tabs 07/17/25 09/29/25 Rx furosemide 10 mg/mL oral solution 20 mg (2 mL) feeding tube QAM #120 09/08/25 09/29/25 Rx mL lansoprazole 30 mg delayed 30 mg feeding tube HS Indigestion 09/29/25 09/29/25 History release,disintegrating tablet levothyroxine 25 mcg tablet 25 mcg feeding tube .DAILY@1400 09/29/25 09/29/25 History sertraline 25 mg tablet 25 mg feeding tube HS 09/29/25 09/29/25 History Patient History Medical History History of chemotherapy HTN (hypertension) Hyperglycemia due to type 2 diabetes mellitus TIA (transient ischemic attack) Hypothyroid Weight loss H/O transfusion of packed red blood cells Renal cyst Hepatic cyst LVH (left ventricular hypertrophy) CKD (chronic kidney disease) History of depression Hypothyroidism HTN (hypertension) Gout Diabetes mellitus, type 2 Hx: UTI (urinary tract infection) Hx of sepsis Carotid stenosis History of bladder cancer Urinary frequency CVA (cerebral vascular accident) Surgical History H/O endoscopy H/O transcarotid artery revascularization (TCAR) History of transcarotid artery revascularization (TCAR) History of bladder surgery Hx of Achilles tendon repair Hx of colonoscopy Hx of appendectomy Family History Mother Hypertension Father Tuberculosis Denies family history of Ovarian cancer Prostate cancer Myocardial infarction Breast cancer Social History Smoking Status: Never smoker Tobacco Type: Cigarettes and Declines Age Started Using Tobacco: 0; packs per day: 0; Second Hand Exposure: No; Do You Dip or Chew Tobacco: No; Hx Alcohol Use: No Hx Substance Use: No Preferred Language: Stateless Communication Ability: Effective Hearing Ability: Normal Boat Rental Clerk Required: No Beliefs That Will Affect Care: Muslim marital status: Current Living Situation: Spouse Current Living Situation Comment: [facility] current occupational status: retired 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 Feels Safe at Home: Yes caffeine: No Dental Care, Regularly: No Gender Identity: Male Assistive Devices: None Physical Exam Vital Signs (Past 24 Hours): Last Vital Signs Temp 36.4 C L 09/30/25 07:26 Pulse 76 09/30/25 07:26 Resp 16 09/30/25 07:26 BP 147/74 H 09/30/25 07:26 Pulse Ox 97 09/30/25 07:26 O2 Del Method Room Air 09/30/25 07:26 Results & Data (PSY) Medications Administered Aspirin (Aspirin 81 Mg Chew) 81 mg PEG DAILY SHAWANDA Stop: 10/30/25 08:59 Last Admin: 09/30/25 08:05 Dose: 81 mg Documented By: EW Atorvastatin Calcium (Atorvastatin 40 Mg Tab) 80 mg PEG HS SHAWANDA Stop: 10/29/25 20:59 Last Admin: 09/29/25 22:05 Dose: 80 mg Documented By: MIGUE Clopidogrel Bisulfate (Clopidogrel Bisulfate 75 Mg Tab) 75 mg PEG QAM SHAWANDA Stop: 10/30/25 08:59 Last Admin: 09/30/25 07:50 Dose: 75 mg Documented By: CHIKIS Enoxaparin Sodium (Enoxaparin Inj 40 Mg/0.4 Ml Syr) 40 mg SQ HS SHAWANDA Stop: 10/29/25 20:59 Last Admin: 09/29/25 22:05 Dose: 40 mg Documented By: MIGUE Sodium Chloride (1/2 Nss) 1,000 mls @ 80 mls/hr IV .[id number] SHAWANDA Stop: 10/03/25 07:29 Last Admin: 09/30/25 07:48 Dose: 80 mls/hr Documented By: CHIKIS Lansoprazole (Lansoprazole 30 Mg Soltab) 30 mg PEG DAILY SHAWANDA Stop: 10/30/25 08:59 Last Admin: 09/30/25 07:50 Dose: 30 mg Documented By: CHIKIS Levothyroxine Sodium (Levothyroxine Sodium 25 Mcg Tablet) 25 mcg PEG DAILYBB SHAWANDA Stop: 10/30/25 06:29 Last Admin: 09/30/25 05:15 Dose: 25 mcg Documented By: MIGUE Lisinopril (Lisinopril 5 Mg Tab) 5 mg PO DAILY SHAWANDA Stop: 10/30/25 08:59 Last Admin: 09/30/25 07:50 Dose: 5 mg Documented By: CHIKIS Sertraline HCl (Sertraline Hcl 50 Mg Tablet) 25 mg PEG DAILY SHAWANDA Stop: 10/30/25 08:59 Last Admin: 09/30/25 07:50 Dose: 25 mg Documented By: CHIKIS Sterile Water (Tube Feeding Water Flush) 75 ml JT Q2H SHAWANDA Stop: 10/29/25 16:14 Last Admin: 09/30/25 11:56 Dose: 75 ml Documented By: Admin: 09/30/25 07:57 Dose: 75 ml Documented By: Admin: 09/30/25 05:15 Dose: 75 ml Documented By: Admin: 09/30/25 04:26 Dose: 75 ml Documented By: Admin: 09/30/25 04:02 Dose: Not Given Documented By: Admin: 09/30/25 00:50 Dose: Not Given Documented By: Admin: 09/29/25 22:18 Dose: 75 ml Documented By: Admin: 09/29/25 22:04 Dose: 75 ml Documented By: Admin: 09/29/25 19:59 Dose: 75 ml Documented By: Admin: 09/29/25 19:58 Dose: Not Given Documented By: JOSEPH Verapamil HCl (Verapamil Hcl 40 Mg Tab) 80 mg PO 0800,1400,2000 SHAWANDA Stop: 10/29/25 19:59 Last Admin: 09/30/25 07:51 Dose: 80 mg Documented By: Admin: 09/29/25 22:04 Dose: 80 mg Documented By: MLM Coding Level of Care Code 93721 IN/OBS CONSULT LVL 4,60M Diagnoses Depression F32.A Hallucination R44.3 Anxiety F41.9
[2025-09-30] MEDS: INSULIN ASPART PER UNIT CHARGE SC SCH (13:13)
--- NOTE | 2025-09-30 13:25 | Palliative Care Consultation ---
Date of Consultation September 30, 2025 Assessment & Plan (1) Depression: (2) Poor appetite: (3) Weakness generalized: (4) Palliative care by specialist: Met with pt and his , Lana at bedside. Introduced Palliative Medicine and explained our role in advanced care planning, symptom management and navigation through the progression of life limiting disease. Patient and/or family were receptive to palliative services for goals of care discussions. Reviewed we are different from hospice, a home health nurse visiting service. (5) Counseling regarding goals of care: Met with pt and his , Lana, from 13:30 - 14:00 to discuss pt values and GOC. 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 We discussed at length the patient's acute and chronic medical conditions, general prognosis,, and goals of care. Lana shared that he has been depressed lately and has anxiety about eating since his esophageal surgery. She shared that he had been having difficulty swallowing and recently had dilation done to improve t his, but he continues to require tube feedings to maintain his body weight. She expressed concern that he was less active and did not have desire to eat and attributes this to depression and not being able to take his medications regularly. She shared concern that he has not been receiving his mediations or nutrition with tube out and that his surgery team at [facility] warned them that if it becomes dislodged it needs replaced urgently to avoid the opening shrinking. She shared understanding that to have it replaced he would need transferred to [facility] and may require surgery. She encouraged that he be transferred as soon as possible, stressing urgency of tube replacement. Mr Cao participated minimally in discussion, when asked what he wanted he responded "what choice do I have". I encouraged him that he does have a choice in his care and emphasized that his wishes are ultimately the most important in establishing his plan of care. He verbalized desire to continue all life prolonging treatments at this time. He shared agreement with his 's request to have Jtube replaced. They encouraged that if possible they would want it done closer to home, but agreeable to transfer to [facility]. Lana shared that she will drive to meet him there and stay in family house as she has previously. Discussed this request with primary team, who will begin arrangements. Plan as above. 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 Patient lives at home with and daughter is visiting from [place]. Patient did have a trial of decreased tube feeds recently to 12 hours a day but was losing weight and was increased back to 18 hours a day. According to family it seems like the patient did stop in not always take his medications as appropriate the last several weeks including his antidepressant. He has been more isolating and does not want social interaction and is not participating in even walks around [place] much. In ED, patient endorsed generalized depression. Psych eval was done with recommendation to increase sertraline to 50mg daily and start Seroquel 12.5mg HS for depression augmentation and insomnia. Pt's JTube has become dislodged and palliative care consulted for goals of care discussion. Allergies Allergy/AdvReac Type Severity Reaction Status Date / Time shellfish derived AdvReac Intermediate Diarrhea Verified 09/29/25 14:56 Home Medications Medication Instructions Recorded Confirmed Type clopidogrel 75 mg tablet (Plavix) 75 mg feeding tube QAM 07/16/24 09/29/25 History lisinopril 5 mg tablet 5 mg feeding tube DAILY 01/09/25 09/29/25 History aspirin 81 mg chewable tablet 81 mg feeding tube DAILY 05/01/25 09/29/25 History metformin 500 mg/5 mL oral 1,000 mg feeding tube BID 06/05/25 09/29/25 History solution (Riomet) ondansetron HCl 4 mg/5 mL oral 4 mg feeding tube Q8H PRN Nausea 06/05/25 09/29/25 History solution atorvastatin 80 mg tablet 80 mg feeding tube HS 07/13/25 09/29/25 History loperamide 1 mg/7.5 mL oral liquid 2 mg feeding tube UD PRN Diarrhea 07/13/25 09/29/25 History polyethylene glycol 3350 17 17 g feeding tube UD PRN 07/13/25 09/29/25 History gram/dose oral powder Constipation verapamil 80 mg tablet 80 mg feeding tube TID #90 tabs 07/17/25 09/29/25 Rx furosemide 10 mg/mL oral solution 20 mg (2 mL) feeding tube QAM #120 09/08/25 09/29/25 Rx mL lansoprazole 30 mg delayed 30 mg feeding tube HS Indigestion 09/29/25 09/29/25 History release,disintegrating tablet levothyroxine 25 mcg tablet 25 mcg feeding tube .DAILY@1400 09/29/25 09/29/25 History sertraline 25 mg tablet 25 mg feeding tube HS 09/29/25 09/29/25 History Patient History Medical History History of chemotherapy HTN (hypertension) Hyperglycemia due to type 2 diabetes mellitus TIA (transient ischemic attack) Hypothyroid Weight loss H/O transfusion of packed red blood cells Renal cyst Hepatic cyst LVH (left ventricular hypertrophy) CKD (chronic kidney disease) History of depression Hypothyroidism HTN (hypertension) Gout Diabetes mellitus, type 2 Hx: UTI (urinary tract infection) Hx of sepsis Carotid stenosis History of bladder cancer Urinary frequency CVA (cerebral vascular accident) Surgical History H/O endoscopy H/O transcarotid artery revascularization (TCAR) History of transcarotid artery revascularization (TCAR) History of bladder surgery Hx of Achilles tendon repair Hx of colonoscopy Hx of appendectomy Family History Mother Hypertension Father Tuberculosis Denies family history of Ovarian cancer Prostate cancer Myocardial infarction Breast cancer Social History Smoking Status: Never smoker Tobacco Type: Cigarettes and Declines Age Started Using Tobacco: 0; packs per day: 0; Second Hand Exposure: No; Do You Dip or Chew Tobacco: No; Hx Alcohol Use: No Hx Substance Use: No Preferred Language: French Communication Ability: Effective Hearing Ability: Normal 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 Beliefs That Will Affect Care: Ep[employer]alian marital status: Current Living Situation: Spouse Current Living Situation Comment: [place] current occupational status: retired 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 Feels Safe at Home: Yes caffeine: No Dental Care, Regularly: No Gender Identity: Male Assistive Devices: None Review of Systems Review of Systems: All systems reviewed & are unremarkable except as noted in HPI & below Physical Exam Constitutional: WD/WN, vitals as above cooperative and comfortable Eyes: PERRL, conjunctivae normal, anicteric sclerae Neck: trachea midline, no thyromegaly Respiratory: normal respiratory effort, lungs clear to auscultation Cardiovascular: RRR, no murmur, no edema Gastrointestinal (Abdomen): normal bowel sounds, soft, nontender, no hepatosplenomegaly +errythema at JTube insertion site, gauz e dressing CDI, no drainage. Musculoskeletal: generalized weakness, LLOYD, ambulates without difficulty Skin: no rashes, warm and dry Psychiatric: Orientation: alert, oriented x 3 and cooperative Affect: + flat affect Results & Data Vital Signs (Past 12 Hours) Vital Signs Temp Pulse Resp BP Pulse Ox O2 Del Method 09/30/25 07:26 36.4 C L 76 16 147/74 H 97 Room Air Laboratory Results Abnormal lab results 09/29/25 09/29/25 09/30/25 Range/Units 16:15 23:13 00:00 RBC (4.70-6.10) M/uL Hgb (14.0-18.0) g/dL Hct (42.0-52.0) % RDW Std Deviation (36.4-46.3) fL Sodium (136-145) mmol/L Chloride (98-107) mmol/L BUN (6-23) mg/dl BUN/Creatinine Ratio (10-20) Glucose (70-99(Fasting)) mg/dl POC Glucose 288 H 138 H (70-99) mg/dl Hemoglobin A1c (4.5-5.6) % Osmolality 328 H (280-300) mOsm/kg TIBC (250-450) mcg/dl Transferrin (200-360) mg/dl 09/30/25 09/30/25 09/30/25 Range/Units 06:03 06:21 11:58 RBC 3.45 L (4.70-6.10) M/uL Hgb 11.1 L (14.0-18.0) g/dL Hct 33.9 L (42.0-52.0) % RDW Std Deviation 50.8 H (36.4-46.3) fL Sodium 150 H (136-145) mmol/L Chloride 115 H (98-107) mmol/L BUN 35 H (6-23) mg/dl BUN/Creatinine Ratio 55.6 H (10-20) Glucose 170 H (70-99(Fasting)) mg/dl POC Glucose 157 H 170 H (70-99) mg/dl Hemoglobin A1c 7.6 H (4.5-5.6) % Osmolality (280-300) mOsm/kg TIBC 234 L (250-450) mcg/dl Transferrin 167 L (200-360) mg/dl Diagnostic Findings Head CT 09/29/25 11:26 CT SCAN OF THE BRAIN WITHOUT IV CONTRAST CLINICAL HISTORY: Generalized weakness. Change in mental status. Hallucinations. COMPARISON STUDY: CT of the brain dated 02/19/2025. TECHNIQUE: Unenhanced CT scan of the brain is performed from the vertex to the skull base. Images are reviewed in the axial, sagittal, coronal planes. A dose lowering technique was utilized adhering to the principles of ALARA. CT DOSE: 703.85 mGy.cm FINDINGS: Brain parenchyma: Small foci of high right frontoparietal encephalomalacia are unchanged and consistent with a remote insult. There is age-related involutional change noting moderate subcortical and periventricular microangiopathic disease. There is no hemorrhage, mass effect, or evidence of acute territorial ischemia by CT criteria. Lynn-white matter differentiation is preserved. No extra-axial fluid collection is seen. Ventricles, sulci, cisterns: Prominent secondary to involutional change. Intracranial vasculature: There is atherosclerotic calcification of the cavernous carotid arteries. Calvarium: Unremarkable. Sinuses and mastoids: The visualized paranasal sinuses are clear. The mastoid air cells are well pneumatized. Orbits: The bony orbits are grossly intact. There are bilateral ocular lens implants. IMPRESSION: There is no hemorrhage, mass effect, or evidence of acute territorial ischemia by CT criteria. ACT 112: Negative or not required by law. Electronically signed by: Alverto Jara M.D. 09/29/2025 12:19 PM Chest X-Ray 09/29/25 11:27 XR chest 1V portable CLINICAL HISTORY: weak, hallucations COMPARISON STUDY: 01/25/2025 FINDINGS: Stable right chest port. Heart size and pulmonary vasculature are normal. Skinfold artifact overlies the right chest. No consolidation or pleural effusion seen. No pneumothorax. IMPRESSION: No acute findings. ACT 112: Negative or not required by law. Electronically signed by: Surya Mejia M.D. 09/29/2025 11:41 AM KUB X-Ray 09/29/25 14:05 KUB HISTORY: check PEG tube placement COMPARISON STUDY: 06/22/2025 FINDINGS: Left upper quadrant jejunostomy tube was injected with contrast. The contrast conforms to the tube and multiple loops of jejunum. No contrast leak seen. No evidence of bowel obstruction seen. IMPRESSION: Normal jejunostomy tube check. ACT 112: Negative or not required by law. The above report was generated using voice recognition software. It may contain grammatical, syntax or spelling errors. Electronically signed by: Surya Mejia M.D. 09/29/2025 2:49 PM Medications Administered Current Inpatient Medications Acetaminophen (Acetaminophen 325 Mg Tab) 650 mg PO Q4H PRN PRN Reason: pain/fever Stop: 10/29/25 14:04 Aspirin (Aspirin 81 Mg Chew) 81 mg PEG DAILY SHAWANDA Stop: 10/30/25 08:59 Last Admin: 09/30/25 08:05 Dose: 81 mg Atorvastatin Calcium (Atorvastatin 40 Mg Tab) 80 mg PEG HS SHAWANDA Stop: 10/29/25 20:59 Last Admin: 09/29/25 22:05 Dose: 80 mg Clopidogrel Bisulfate (Clopidogrel Bisulfate 75 Mg Tab) 75 mg PEG QAM [facility]AWANDA Stop: 10/30/25 08:59 Last Admin: 09/30/25 07:50 Dose: 75 mg Enoxaparin Sodium (Enoxaparin Inj 40 Mg/0.4 Ml Syr) 40 mg SQ HS SHAWANDA Stop: 10/29/25 20:59 Last Admin: 09/29/25 22:05 Dose: 40 mg Sodium Chloride (1/2 Nss) 1,000 mls @ 80 mls/hr IV .[id number] [facility]ANDA Stop: 10/03/25 07:29 Last Admin: 09/30/25 07:48 Dose: 80 mls/hr Cefepime HCl (Maxipime 2000mg) 2,000 mg in 20 mls @ 5 mls/min IV Q12H SHAWANDA; Protocol Stop: 10/10/25 10:59 Insulin Aspart (Insulin Aspart Per Unit Charge) 0 units SC Q6 [facility]AWANDA Stop: 10/30/25 11:59 Last Admin: 09/30/25 13:13 Dose: Not Given Lansoprazole (Lansoprazole 30 Mg Soltab) 30 mg PEG DAILY [facility] Stop: 10/30/25 08:59 Last Admin: 09/30/25 07:50 Dose: 30 mg Levothyroxine Sodium (Levothyroxine Sodium 25 Mcg Tablet) 25 mcg PEG DAILYBB SHAWANDA Stop: 10/30/25 06:29 Last Admin: 09/30/25 05:15 Dose: 25 mcg Lisinopril (Lisinopril 5 Mg Tab) 5 mg PO DAILY [facility]ANDA Stop: 10/30/25 08:59 Last Admin: 09/30/25 07:50 Dose: 5 mg Loperamide HCl (Loperamide Liquid 120 Ml Bottle) 2 mg PEG UD PRN PRN Reason: Diarrhea Stop: 10/29/25 15:49 Melatonin (Melatonin 3 Mg Tab) 3 mg PO HS PRN PRN Reason: Insomnia Stop: 10/29/25 14:04 Nutritional Formula (Patient's Own Enteral Feeding) 1,000 ml JT .See Protocol SHAWANDA; Protocol Stop: 10/29/25 16:14 Ondansetron HCl (Ondansetron Inj 2 Mg/Ml 2 Ml Vial) 4 mg IV Q6H PRN PRN Reason: Nausea Stop: 10/29/25 14:04 Polyethylene Glycol (Polyethylene (Miralax) 17 Gm Pack) 17 gm PO DAILY PRN PRN Reason: Constipation Stop: 10/29/25 14:04 Sertraline HCl (Sertraline Hcl 50 Mg Tablet) 25 mg PEG DAILY [facility]ANDA Stop: 10/30/25 08:59 Last Admin: 09/30/25 07:50 Dose: 25 mg Sterile Water (Tube Feeding Water Flush) 75 ml JT Q2H [facility] Stop: 10/29/25 16:14 Last Admin: 09/30/25 13:14 Dose: Not Given Verapamil HCl (Verapamil Hcl 40 Mg Tab) 80 mg PO 0800,1400,2000 [facility] Stop: 10/29/25 19:59 Last Admin: 09/30/25 07:51 Dose: 80 mg PG Care Time/CCT Total # of Minutes Spent Total Time Spent with Patient: Total time spent is greater than 50% in coordination of care (as documented) at patient's floor/unit and/or counseling patient: Advanced Care Planning 22982 Advanced Care Planning 30 [place] [address] IN/OBS CONSULT LVL 3,45M Patient Type New History Expanded Problem Focused Exam Expanded Problem Focused Medical Decision Making Moderate Complexity Diagnoses Depression F32.A Poor appetite R63.0 Weakness generalized R53.1 Palliative care by specialist Z51.5 Counseling regarding goals of care Z71.89 Additional Codes Advanced Care Planning - 28381 Advanced Care Planning 30 Min: 44810 Advanced Care Planning 30 Min ([id number])
[2025-09-30] MEDS: CEFEPIME 2000MG 2,000 MG/20 ML SYR IV SCH (15:21)
--- NOTE | 2025-09-30 15:59 | Discharge Summary ---
"Discharge Summary Date of Service September 30, 2025 Principal Dx & Hospital Course #1 = Principal Diagnosis (1) Acute hypernatremia: (2) Depression: (3) Feeding tube dysfunction: (4) Anxiety: (5) Weight loss: Plan This is an 85 year old gentleman with past medical history of esophageal cancer s/p esophagectomy, type 2 DM, s/p CVA who presented to the ED on 09/29/2024 for depression, and failure to participate in care. While in the ED he was found to have anemia within his baseline with a hgb of 12.1. His sodium was found to be elevated at 150, K stable at 4.3. BG elevated at 334. Serum/Urine osmol are pending. LFTs WNL. TSH WNL. Urinalysis negative for infection. CXR & head CT were negative. #Esophageal cancer | s/p esophagectomy | Presence of J tube. Pt may be having discomfort to tube feedings; peg tube w/ mild erythema & purulent drainage on admission. 1125 -> pt still w/ drainage around site, GI consulted & prior to arrival, J tube fell out from site without force. Contacted [facility] as this is where patients surgeon is & they accepted him for transfer. culture of surrounding peg area+ for pseudomonas, Received 1 dose of Cefepime prior to transfer. Follows w/ heme/onc, most recent PET scan showing no convincing evidence of FDG avid metastatic disease. Follow up of FDG uptake in posterior right lower chest wall & sm left axillary lymph node. Palliative care was consulted 09/30 - he would prefer all life prolonging treatments at this time. #Dehydration | Hypernatremia | Weight loss w/ inability to complete PEG tube feedings at home, not alerting family when feedings are not working. Has not been eating foods PO lately secondary to anxiety surrounding swallowing. Sodium remained at 150 overnight, baseline typically 136-139. serum osmol elevated at 238 indicating dehydration. BMP, Mag, Phos, iron panel, B12, Folate all appear stable. B1 pending on transfer. 11/07 NSS @ 80ml/hr continued. #Depression | anxiety w/ ongoing anxiety & depression on outpatient basis. On 25mg sertraline daily. Per family, patient is anxious regarding swallowing/his medical conditions. Depression has worsened, affecting his abilities to complete tube feedings & participate in ADL's. Psych consulted --> pt w/ suicidal ideations currently. 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 Recommending 15 min checks. recommending increasing Sertraline to 50mg & Adding Seroquel 12.5mg HS. Consider [facility]-psych if not improving. #HTN Home regimen includes verapamil, Lisinopril, & Lasix Discontinue Lasix as this contributes to dehydration --> will likely require adjustments of BP meds on discharge. #Type 2 DM Most recent A1c 09/30 at 7.6%, on metformin at home. Sliding scale coverage, adjust as necessary #GERD - PPI #Hypothyroidism - TSH WNL, continue home levothyroxine dosing #HLD - continue statin #s/p CVA + carotid artery stent placement - continue ASA/Plavix DVT prophylaxis: Lovenox Code: full Updated & discussed w/ at bedside 09/30. Discussed w/ palliative care & psychiatry 09/30. Discussed w/ GI & general surgery 09/30, given no ability to place J tube at our facility patient will be transferred to [facility] Admission HPI Per Admitting Provider This is an 85 year old gentleman with past medical history of esophageal cancer s/p esophagectomy, type 2 DM, s/p CVA who presented to the ED on 09/29/2024 for depression, and failure to participate in care. Vernon was seen & examined with his and daughter at bedside. The patient is a poor historian and fails to actively participate in history taking. The daughter provides majority of history. Patient has been having ongoing battles with depression & anxiety for awhile now but has acutely worsened within the last week or so. the patient has been failing to make it known when his tube feedings are not working properly and he has been not completing his feedings secondary to this. The patient did nod his head that the feedings are causing him discomfort. The daughter also reports that he is obsessed with whether his tube is in the correct place. The daughter reports that the patient is able to eat some food by mouth but has great anxiety doing so. He has a stent in place in his carotid arteries and this affected his swallowing prior to his esophagectomy. The patient was seen by his PCP last month and declined a change in his mental health medications at that time. The patient was not able to respond to any additional ROS questions. Daughter reports he appears catatonic at times, does not engage with others anymore. reports he is also failing to participate in ADL's such as brushing teeth. Daughter reports he has to have someone tell him what to do and watch him at all times or else ADL's do not get performed. Reports this is a change from his baseline. The reports that there is also drainage around the peg tube and that it does not appear different than usual. She reports she cleans it once a day and puts ointment on it and covers with a dressing. While in the ED he was found to have anemia within his baseline with a hgb of 12.1. His sodium was found to be elevated at 150, K stable at 4.3. BG elevated at 334. Serum/Urine osmol are pending. LFTs WNL. TSH WNL. Urinalysis negative for infection. CXR & head CT were negative. Code discussion did take place with the patients family who does confirm that he is a full code. Discharge Exam General: NAD, VS: BP 182/77; P71; R18; T36.8C Resp: normal respiratory effort Extremities: Moves all extremities, no edema Neuro: Alert, oriented to person Skin: intact, no lesions noted Discharge Plan Discharge Items Patient Disposition: Transfer Acute Care Hospital Reason For Visit: DEHYDRATION, DEPRESSION Discharge Diagnosis: J-tube injection & expulsion; Depression Activity: Resume your previous activity Non-emergency contact: Primary Care Provider Call non-emergency contact if: you have any medication questions and your symptoms worsen Follow-up/Referrals: Pro,Juanjo Alonzo MD [Primary Care Provider] - Diet: Nothing by Mouth Addtl Attending Provider Instructions: [facility]: Psych recommendations include increasing Sertraline to 50mg once daily and add Seroquel 12.5mg prior to bed. If suicidal ideation worsens, despite ongoing medical treatment psych recommended exploring [facility] psychiatry. On IV Cefepime q12h for pseudomonal infection at J tube site. Receiving 1/2 NSS for hypernatremia & dehydration. Pending Studies at Discharge: Yes Studies:: final culture results of J tube site Stand-Alone Forms: My [facility] Skilled Items Patient informed of condition?: Yes DNR: No Discharge Level of Care: Other Communicable Disease: No Discharge Prognosis: Stable Lines: Peripheral IV Urinary Catheter: No Medications and DC Order Prescriptions: Continued furosemide 10 mg/mL solution 20 mg feeding tube QAM Qty: 120 0RF metformin [Riomet] 500 mg/5 mL solution 1,000 mg feeding tube BID ondansetron HCl 4 mg/5 mL solution 4 mg feeding tube Q8H PRN (Reason: Nausea) verapamil 80 mg tablet 80 mg feeding tube TID Qty: 90 3RF Rx Instructions: take at 0800 & 1400 & 2000 clopidogrel [Plavix] 75 mg tablet 75 mg feeding tube QAM lisinopril 5 mg tablet 5 mg feeding tube DAILY aspirin 81 mg Tablet,Chewable 81 mg feeding tube DAILY atorvastatin 80 mg tablet 80 mg feeding tube HS polyethylene glycol 3350 17 gram/dose Powder 17 g feeding tube UD PRN (Reason: Constipation) loperamide 1 mg/7.5 mL Liquid 2 mg feeding tube UD PRN (Reason: Diarrhea) levothyroxine 25 mcg tablet 25 mcg feeding tube .DAILY@1400 sertraline 25 mg tablet 25 mg feeding tube HS lansoprazole 30 mg tablet,disintegrat, delay rel 30 mg feeding tube HS Discharge Orders: Discharge Order (Routine); Ordered 09/30/25 Ordered By: Jamila Corcoran Admission Data Admit Date/Time: 09/29/25 14:05 Attending Provider: Marcos Berry Admit Provider: Marcos Berry Primary Care Provider: Juanjo Vanegas Other Providers: Marcos Berry; Tati Concepcion; Surya Goodman; Leda Thakur; Sonia Riley; Josue Torres R; TalhaS osyary; Brandon Scanlon; Angelina Bansal; Radha Friedman; Alejandrina June; Jae Noble; Rosa Maria Tirado; Jacqueline Marcelo; Angelina Perez; Daiana Melendez; Audie Higuera; Randi Rodriguez; Andreea Licea; Barbie Guidry; Anabel Tian; Glory Dhaliwal; Sania Wahl; Jordan Buchanan; Juan M Johnson; Danny Hernandez; Steff Olivares; Danny Lujan Jr; Kit Vaz; Sandoval Moctezuma; Tony Yuen; Annmarie Flores; Haroon Johnson I; Mary Riggins; Aquilino Swartz; Ricardo Green; Jayesh Tubbs; Vel Flynn; Amber Crabtree; Marli Hendrix; Magda Cool Hospital Stay Data Consultations 09/29/25 13:42 ED Decision to Admit Stat 09/29/25 14:12 Consult Psychiatry Routine 09/29/25 15:50 Consult Oncology Routine 09/30/25 12:05 Consult Gastroenterology Routine 09/30/25 14:24 Consult Palliative Care Routine Diagnostic Imagining Performed 09/29/25 11:26 CT head/brain wo con Stat Pending Results Patient Have Any Pending Studies at Discharge: Yes Discharge Instructions Given to Patient (Per Discharging Provider) [facility]: Psych recommendations include increasing Sertraline to 50mg once daily and add Seroquel 12.5mg prior to bed. If suicidal ideation worsens, despite ongoing medical treatment psych recommended exploring [facility] psychiatry. On IV Cefepime q12h for pseudomonal infection at J tube site. Receiving 1/2 NSS for hypernatremia & dehydration. Supervising Physician Co-Signing Physician Notes The patient was not seen by me. The chart was reviewed. Case discussed with VANESSA Cage. Agree with assessment and plan Total Time Total Time Spent Total Time Spent (In Minutes): 70 Total Time Includes: Examination of the Patient, Discharge Planning, Medication Reconciliation and Communication With Other Providers Coding Level of Care Code 53820 INP/OBS DISCH >30 MIN Diagnoses Acute hypernatremia E87.0 Depression F32.A Feeding tube dysfunction T85.598A Encounter type: initial encounter Anxiety F41.9 Weight loss R63.4"
[2025-09-30 20:38] VITALS: RESP 16; O2SAT 98
[2025-09-30 22:09] VITALS: BP 198/94; PULSE 74; TEMP 97.9
== END 2025-09-30 22:40 | disposition short-term general hospital (02) | DRG 641 ==
LOC: SUATTDRO → ED 10:48 → EDINP 14:05 → 3N 15:50